=== PATIENT | female | born 1965 | race Two or more races ===

== ENCOUNTER 2024-12-14 18:12 | Inpatient (IN) | payer MEDICARE, MEDICAID ==
[~2024-12-14] VITALS: Ht 167.6 cm; Wt 116.6 kg
[2024-12-14] MEDS: GLUCAGON EMERG KIT 1mg/1ml ONE ×3 (18:32→19:16)
[2024-12-14] MEDS: CALCIUM GLUC 1,000mg/50ml-NS 50 ML IV ONE ×3 (18:35→21:13)
--- NOTE | 2024-12-14 18:51 | ED.PDOC ---
HPI Comments 59 year old female came to ER via EMS for chest pains. Patient is morbidly obese and wheelchair bound. Per EMS, initial call of chest pains and possible overdose. Started complaining of chest pains radiating to her left arm a few hours ago, associated with shortness of breath. Patient does have history of hypertension, diabetes, CVA, CHF and AZ on 6-8 L NC. Does take metoprolol. On scene, blood pressure was 140/73 mmHg however her heart rate was 30's. At this time of care, patient appears confused, screaming and unable to give any more information. Family states that patient normally is alert and oriented x3, no confusion. Chief Complaint: Chest Pain Time Seen by MD: 18:50 Reviewed Notes: Goodwill Representative Notes Allergies: Coded Allergies: NO KNOWN ALLERGIES (Unverified , 12/14/24) Home Meds Reported Medications Rivaroxaban (Xarelto Tablet) 20 Mg Tb, 1 TAB PO DAILY 12/15/24 Losartan Potassium (Losartan Potassium) 50 Mg Tab, 1 TAB PO BID 12/15/24 Nitrofurantoin Monohyd Macro (Nitrofurantoin Monohydrat) 100 Mg Cap, 1 CAP PO BID 12/15/24 Baclofen (Baclofen) 10 Mg Tab, 1 TAB PO BID 12/15/24 Pregabalin (Pregabalin) 75 Mg Cap, 1 CAP PO TID 12/15/24 Lubiprostone (Lubiprostone) 24 Mcg Cap, 1 CAP PO DAILY 12/15/24 Fluticasone Propionate (Nasal) (Fluticasone Propionate) 50 Mcg/Act Spr, 1 SPRAY DANIELE DAILY 12/15/24 Furosemide (Furosemide) 80 Mg Tab, 1 TAB PO BID 12/15/24 Empagliflozin (Jardiance) 25 Mg Tab, 1 TAB PO DAILY 12/15/24 Glipizide (Glipizide) 5 Mg Tab, 1 TAB PO BID 12/15/24 Semaglutide (Ozempic) 4 Mg/3 Ml Inj 12/15/24 Insulin Syringe/Needle U-100 (Bd Insulin Syringe/U-100/) 0.5 Mg/30 G Mis 12/15/24 Trazodone Hcl (Trazodone Hcl) 100 Mg Tab, 2 TAB PO QHSP PRN for ANXIETY 12/15/24 Buspirone Hcl (Buspirone Hcl) 15 Mg Tab, TAB PO 12/15/24 Alprazolam (Alprazolam) 0.5 Mg Tab, 1 TAB PO QID PRN for ANXIETY 12/15/24 Metoprolol Succinate (Metoprolol Succinate Er) 100 Mg Tab, 1 TAB PO DAILY 12/15/24 Hydroxyzine Hcl (Hydroxyzine Hcl) 25 Mg Tab, 1 TAB PO BID 12/15/24 Pantoprazole Sodium Sesquihydr (Pantoprazole Sodium) 40 Mg Tab, 1 TAB PO DAILY 12/15/24 Amiodarone HCl (Amiodarone HCl) 200 Mg Tab, 1 TAB PO BID 12/15/24 Furosemide (Furosemide) 40 Mg Tab, 1 TAB PO DAILY 12/15/24 Losartan Potassium (Losartan Potassium) 100 Mg Tab, 1 TAB PO DAILY 12/15/24 Doxycycline Monohydrate (Doxycycline Monohydrate) 100 Mg Cap, 1 CAP PO BID 12/15/24 Famotidine (Famotidine) 20 Mg Tab, 1 TAB PO DAILY 12/15/24 Lidocaine (Lidocaine Pain Relief Pat) 4 % Pad, 1 PATCH TOP DAILY 12/15/24 Ondansetron HCl (Ondansetron Hydrochloride) 4 Mg Tab, 2 PO BID 12/15/24 Aspirin (Aspirin Low Dose) 81 Mg Tab, 1 TAB PO DAILY 12/15/24 Simvastatin (Simvastatin) 40 Mg Tab, 1 TAB PO 12/15/24 Insulin Aspart (Insulin Aspart) 100 Unit/Ml Inj 12/15/24 Information Source: Patient, Emergency Med Personnel Mode of Arrival: EMS Severity: Moderate Timing: Hours Duration: Since onset Prehospital treatment: Oxygen Location: Substernal Radiation: Arm (L) Quality: Heavy Onset: With Light Exertion Cardiac Risk Factors: HTN Associated Signs and Symptoms: SOB Review of Systems Review of Systems: Unable to obtain due to altered mental status. Patient is complaining of bilateral lower extremity pain, numbness, back pain and discomfort. Vital Signs Vital Signs Date Time Temp Pulse Resp B/P (MAP) Pulse Ox O2 Delivery O2 Flow Rate FiO2 12/15/24 06:30 62 24 148/49 (82) 100 12/15/24 05:24 90 12/15/24 02:00 98.2 98.2 12/14/24 21:34 60.0 12/14/24 21:00 Non-Rebreather Physical Exam Initial Physical Exam General: Awake, alert, agitated, restless and confused Skin: Skin in warm, rash over lower abdomen. Appropriate color for ethnicity. HEENT: The head is normocephalic and atraumatic. Conjunctivae are clear without exudates or hemorrhage. Sclera is non-icteric. EOM are intact. No signs of nystagmus. Eyelids are normal in appearance without swelling or lesions. Oral mucosa is pink and moist. PERRLA Neck: The neck is supple with normal range of motion. No JVD. Cardiac: Bradycardic rate with normal rhythm. No murmurs, gallops, or rubs are auscultated. Respiratory: Patient is tachypneic. No signs of respiratory distress. Lung sounds are clear in all lobes bilaterally without rales, rhonchi, or wheezes. Abdominal: Abdomen is soft, distended with overlying skin changes on lower abdomen. Extremities: Upper and lower extremities are atraumatic in appearance without deformity. He was bilateral nonpitting lower extremity edema. Neurological: Awake, alert, agitated, restless and confused. Patient is moving all extremities spontaneously. She was able to follow some commands intermittently. She was able to pull herself up and sit up in the exam bed. Psychiatric: Patient appears anxious Past Medical History PAST MEDICAL HISTORY: CHF, CVA, DM, HTN, AZ Past Medical History (Other): Morbidly obese Surgical History: Denies all surgeries CAE ENGINEER History: Denies all CAE ENGINEER Hx Family History Family History: Reviewed,noncontributory to illness Social History Smoker: Non-Smoker Alcohol: Denies ETOH Use Drugs: Denies Drug Use Lives In: Home EKG EKG : Pulse Rate (adult): 29 Cardiac Rhythm: SB Comments Prolonged TX interval, non specific intraventricular conduction delay Was a procedure done? 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 Indication: CVP monitoring, Volume resuscitation, Inability to obtain IV, Suspected infection Room prepared for procedure: Yes Production Troubleshooter performed hand hygien: Yes Maximal sterile barrier precau: Mask/Eye shield, Sterile gown, Cap, Sterlie gloves, Large sterlie drape Skin Preparation: Providine iodine Skin preparation completely dr: Yes Insertion site: Left, Internal jugular Central line catheter type: Tunneled- not dialysis Number of lumens: 3 Central line exchanged over a: Yes Antiseptic ointment applied to: Yes Post Assessment: Chest X-Ray Informed consent obtained: Yes Risks/benefits/alt described: Yes Intubation Indication: Respiratory Insufficiency, Airway Protection Prep: Preoxygenation Pretreated with: Sedation Medicated with: Other (Rocuronium, etomidate) Intubation Approach: Orotracheal Intubation size: cm (8.0) Informed consent obtained: Yes Risks/benefits/alt described: Yes CP Differential Dx Differential Diagnosis: Angina, Anxiety / Panic Attack, AV Block 1st Degree, AV Block 2nd Degree, AV Block 3rd Degree, Heart Failure, Hypoxia, AZ, Renal Failure, Other (Beta-latrice overdose, benzodiazepine overdose,) Differential Diagnosis: CHF, Other (Increased intracranial pressure, CVA, intentional drug overdose, sepsis, other) Differential Diagnosis: Angina, Chest Wall Pain, Costochondritis X-Ray, Labs, Meds, VS Vital Signs Date Time Temp Pulse Resp B/P (MAP) Pulse Ox O2 Delivery O2 Flow Rate FiO2 12/15/24 06:30 62 24 148/49 (82) 100 12/15/24 06:15 56 18 145/47 (79) 100 12/15/24 06:00 59 16 150/48 (82) 100 12/15/24 06:00 145/47 12/15/24 06:00 145/47 12/15/24 06:00 145/47 12/15/24 06:00 145/47 12/15/24 06:00 145/47 12/15/24 05:45 62 24 163/56 (91) 100 12/15/24 05:30 161/58 12/15/24 05:30 161/58 12/15/24 05:30 59 24 164/67 (99) 100 12/15/24 05:24 60 24 161/58 (92) 100 90 12/15/24 05:15 65 24 164/67 (99) 100 12/15/24 05:15 164/67 12/15/24 05:00 66 16 154/46 (82) 100 12/15/24 05:00 154/46 12/15/24 05:00 154/46 12/15/24 05:00 154/46 12/15/24 04:45 69 24 154/57 (89) 100 12/15/24 04:30 67 18 147/53 (84) 100 12/15/24 04:30 147/53 12/15/24 04:15 66 23 145/51 (82) 99 12/15/24 04:15 145/51 12/15/24 04:00 64 24 152/44 (80) 99 12/15/24 04:00 152/44 12/15/24 04:00 152/44 12/15/24 04:00 152/80 12/15/24 03:45 65 24 155/49 (84) 99 12/15/24 03:31 62 24 149/47 (81) 98 100 12/15/24 03:30 65 24 132/50 (77) 98 12/15/24 03:15 63 22 159/51 (87) 98 12/15/24 03:00 61 22 135/42 (73) 100 12/15/24 03:00 135/42 12/15/24 03:00 135/42 12/15/24 03:00 135/42 12/15/24 02:45 140/56 12/15/24 02:45 62 22 140/56 (84) 98 12/15/24 02:30 58 22 142/52 (82) 100 12/15/24 02:15 61 22 148/54 (85) 100 12/15/24 02:00 98.2 62 22 157/60 96 100 98.2 12/15/24 02:00 149/56 12/15/24 02:00 149/56 12/15/24 02:00 149/87 12/15/24 02:00 60 22 149/56 (87) 98 12/15/24 01:48 157/60 12/15/24 01:45 60 19 157/60 (92) 97 12/15/24 01:30 135/90 12/15/24 01:30 61 13 145/63 (90) 100 12/15/24 01:25 55 22 135/84 (101) 100 100 12/15/24 01:21 138/54 12/15/24 01:15 58 15 133/67 (89) 100 12/15/24 01:00 144/48 12/15/24 01:00 144/80 12/15/24 01:00 57 19 144/48 (80) 100 12/15/24 00:49 136/45 12/15/24 00:45 54 14 141/44 (76) 100 12/15/24 00:31 147/43 12/15/24 00:30 53 11 148/45 (79) 100 12/15/24 00:15 54 16 147/50 (82) 100 12/15/24 00:00 125/59 12/15/24 00:00 54 12/15/24 00:00 53 14 125/59 (81) 96 12/14/24 23:45 55 17 104/52 (69) 98 12/14/24 23:30 55 16 71/53 (59) 100 12/14/24 23:15 90 15 164/139 (147) 94 12/14/24 23:00 52 15 64/43 (50) 97 12/14/24 23:00 108/48 12/14/24 22:45 51 15 108/48 (68) 94 12/14/24 22:30 43 15 116/23 (54) 92 12/14/24 22:15 45 11 107/44 (65) 100 12/14/24 22:00 47 17 125/52 (76) 99 12/14/24 22:00 125/52 12/14/24 21:45 49 11 121/43 (69) 97 12/14/24 21:34 42 28 60.0 100 12/14/24 21:30 50 14 112/42 (65) 98 12/14/24 21:23 100/43 12/14/24 21:18 76/46 12/14/24 21:15 48 15 88 12/14/24 21:11 47 12/14/24 21:00 33 11 88 12/14/24 21:00 33 11 88 Non-Rebreather 10 N/A 12/14/24 20:45 41 15 87 12/14/24 20:30 76/46 12/14/24 20:30 46 12 100/41 (60) 97 12/14/24 20:15 44 14 79/37 (51) 90 12/14/24 20:00 47 22 89/18 (41) 89 12/14/24 19:54 106/67 12/14/24 19:45 95 Non-Rebreather 15 N/A 12/14/24 19:45 50 22 106/49 (68) 87 12/14/24 19:45 22 95 Non-Rebreather 15 N/A 12/14/24 19:34 98/45 12/14/24 19:30 98.2 30 36 89/43 (58) 89 98.2 12/14/24 18:51 29 12/14/24 18:26 29 12/14/24 18:21 97.7 33 22 148/73 (98) 94 97.7 Lab Test 12/15/24 05:00 12/15/24 03:20 12/15/24 00:52 12/14/24 23:23 Range/Units Blood Gas Specimen Type Arterial Arterial Arterial Blood Gas Sample Site Right radial Right radial Right radial Blood Gas Patient Temperature 37.0 37.0 37.0 Arterial Blood Date Drawn [id number] Arterial Blood pH 7.296 L 7.258 L 7.236 *L 7.350-7.450 Arterial Blood Partial Pressure CO2 48.1 H 53.8 H 57.0 H 32.0-45.0 mmHg Arterial Blood Partial Pressure O2 76.2 L 77.9 L 106.7 83.0-108.0 mmHg Arterial Blood HCO3 22.9 23.5 23.7 21.0-28.0 mmol/L Arterial Blood Oxygen Saturation 94.4 94.3 97.7 94.0-98.0 % Arterial Blood Base Excess -3.7 L -4.0 L -4.3 L -2.0-3.0 mmol/L Arterial Blood Oxyhemoglobin 93.4 L 93.1 L 96.4 94.0-98.0 % Arterial Blood Carboxyhemoglobin 0.7 0.8 0.9 0.5-1.5 % Arterial Blood Methemoglobin 0.4 0.5 0.4 0.0-1.5 % Alverto Test Modified Modified Modified Blood Gas Total Hemoglobin 11.60 L 11.80 L 11.60 L 12.0-16.0 g/dL Blood Gas Set Respiration Rate 24.0 22.0 Blood Gas Modality Vent - ac Vent - ac High flow FiO2 % 100.0 100.0 100.0 Blood Gas Tidal Volume 500.0 450.0 Blood Gas PEEP or CPAP 5.0 5.0 Blood Gas Liter Flow 60.00 Blood Gas Critical Value Read Back Yes Blood Gas Notified Whom kisha Jacobson md Blood Gas Notified Time [id number] Blood Gas Notified By gonzalez Maurer rrt Prothrombin Time 12.8 H 9.3-11.8 sec Prothrombin Time INR 1.23 H 0.9-1.15 Sodium Level 137 136-145 mmol/L Potassium Level 6.1 *H 3.5-5.1 mmol/L Chloride Level 103 98-107 mmol/L Carbon Dioxide Level 25 20-31 mmol/L Anion Gap 9 5-15 Blood Urea Nitrogen 77 H 9-23 mg/dL Creatinine 3.16 H 0.550-1.02 mg/dL Glomerular Filtration Rate Calc 16 >90 mL/min BUN/Creatinine Ratio 24.4 H 10.0-20.0 Serum Glucose 328 H 74-106 mg/dL Calcium Level 9.6 8.7-10.4 mg/dL Troponin I High Sensitivity 12 </=34 ng/L Test 12/14/24 23:16 12/14/24 21:21 12/14/24 21:12 12/14/24 21:04 Range/Units Urine Color Light-orange Yellow Urine Clarity Turbid H Clear Urine pH 7.0 5.0-9.0 Urine Specific [place] 1.014 1.001-1.035 Urine Protein 1+ H Negative Urine Ketones Negative Negative Urine Blood 1+ H Negative /uL Urine Nitrite Negative Negative Urine Bilirubin Negative Negative Urine Urobilinogen Normal Negative mg/dL Urine Leukocyte Esterase 3+ Negative /uL Urine RBC 19 0 - 4 /hpf Urine WBC Clumps Present None Seen /hpf Urine Microscopic WBC 152 H 0-5 /HPF Urine Squamous Epithelial Cells Few <5 /hpf Urine Calcium Oxalate Crystals Few None Seen Urine Bacteria Many H None Seen /hpf Urine Hyaline Casts Many 0 - 2 /lpf Urine Mucus Few None Seen Urine Glucose Normal Normal mg/dL Blood Gas Specimen Type Arterial Arterial Blood Gas Sample Site Right radial Right radial Blood Gas Patient Temperature 37.0 37.0 Arterial Blood Date Drawn [id number] Arterial Blood pH 7.226 *L 7.252 L 7.350-7.450 Arterial Blood Partial Pressure CO2 52.3 H 52.3 H 32.0-45.0 mmHg Arterial Blood Partial Pressure O2 79.5 L 69.5 L 83.0-108.0 mmHg Arterial Blood HCO3 21.2 22.5 21.0-28.0 mmol/L Arterial Blood Oxygen Saturation 93.9 L 91.4 L 94.0-98.0 % Arterial Blood Base Excess -6.5 L -4.9 L -2.0-3.0 mmol/L Arterial Blood Oxyhemoglobin 92.8 L 90.3 L 94.0-98.0 % Arterial Blood Carboxyhemoglobin 0.7 0.8 0.5-1.5 % Arterial Blood Methemoglobin 0.5 0.4 0.0-1.5 % Alverto Test Modified Modified Blood Gas Total Hemoglobin 11.40 L 11.30 L 12.0-16.0 g/dL Blood Gas Liter Flow 60.00 15.00 Blood Gas Modality High flow Mask - nrb FiO2 % 100.0 100.0 Blood Gas Critical Value Read Back Yes Blood Gas Notified Whom kisha Jacobson md Blood Gas Notified Time [id number] Blood Gas Notified By gonzalez Maurer rrt Urine Opiates Screen Pos NEGATIVE Urine Fentanyl Screen Pos NEGATIVE Urine Barbiturates Screen Neg NEGATIVE Urine Phencyclidine Screen Neg NEGATIVE Urine Amphetamines Screen Neg NEGATIVE Urine Benzodiazepines Screen Pos NEGATIVE Urine Cocaine Screen Neg NEGATIVE Urine Cannabinoids Screen Neg NEGATIVE Lactic Acid Level 0.8 0.4-2.0 mmol/L Troponin I High Sensitivity 12 </=34 ng/L POC Glucose 281 H 70-106 mg/dl Test 12/14/24 19:23 Range/Units White Blood Count 8.8 4.4-10.8 10^3/uL Red Blood Count 4.19 4.0-5.20 10^6/uL Hemoglobin 10.1 L 12.2-16.2 g/dL Hematocrit 34.3 L 36.0-46.0 % Mean Corpuscular Volume 81.8 80.0-100.0 fL Mean Corpuscular Hemoglobin 24.2 L 28.0-32.0 pg Mean Corpuscular Hemoglobin Concent 29.5 L 32.0-36.0 g/dL Red Cell Distribution Width 18.7 H 11.8-14.3 % Platelet Count 401 140-450 10^3/uL Mean Platelet Volume 7.9 6.9-10.8 fL Neutrophils (%) (Auto) 70.5 37.0-80.0 % Lymphocytes (%) (Auto) 14.9 10.0-50.0 % Monocytes (%) (Auto) 7.6 0.0-12.0 % Eosinophils (%) (Auto) 6.4 0.0-7.0 % Basophils (%) (Auto) 0.6 0.0-2.0 % Neutrophils # (Auto) 6.2 1.6-8.6 10 ^3/uL Lymphocytes # (Auto) 1.3 0.4-5.4 10 ^3/uL Monocytes # (Auto) 0.7 0-1.3 10 ^3/uL Eosinophils # (Auto) 0.6 0-0.8 10 ^3/uL Basophils # (Auto) 0.1 0-0.2 10 ^3/uL Nucleated Red Blood Cells 0.1 % Sodium Level 137 136-145 mmol/L Potassium Level 6.3 *H 3.5-5.1 mmol/L Chloride Level 103 98-107 mmol/L Carbon Dioxide Level 24 20-31 mmol/L Anion Gap 10 5-15 Blood Urea Nitrogen 74 H 9-23 mg/dL Creatinine 3.04 H 0.550-1.02 mg/dL Glomerular Filtration Rate Calc 17 >90 mL/min BUN/Creatinine Ratio 24.3 H 10.0-20.0 Serum Glucose 282 H 74-106 mg/dL Lactic Acid Level 2.8 *H 0.4-2.0 mmol/L Calcium Level 9.8 8.7-10.4 mg/dL Magnesium Level 2.1 1.6-2.6 mg/dL Total Bilirubin 0.2 0.2-1.0 mg/dL Aspartate Amino Transferase (AST) 19 13-40 U/L Alanine Aminotransferase (ALT) 24 7-40 U/L Alkaline Phosphatase 83 46-116 U/L Creatine Kinase 84 34-145 U/L Troponin I High Sensitivity 14 </=34 ng/L B-Type Natriuretic Peptide 298.73 0-100 pg/mL Total Protein 6.4 5.7-8.2 g/dL Albumin 4.1 3.2-4.8 g/dL Lipase 39 12-53 U/L Salicylates Level < 3.0 -30 mg/dL Acetaminophen Level < 2.0 L 10.0-20.0 UG/ML Microbiology Date/Time Source Procedure Growth Status 12/14/24 19:23 Blood Blood Culture - Preliminary NO GROWTH AFTER 24 HOURS OF INCUBATION. Resulted 12/14/24 19:23 Blood Blood Culture - Preliminary NO GROWTH AFTER 24 HOURS OF INCUBATION. Resulted Current Medications Medications (Trade) Dose Ordered Sig/Julito Route Start Time Stop Time Status Last Admin Insulin Human Regular (InsuLIN R) 10 units ONCE ONCE IV 12/14/24 21:00 12/14/24 21:01 DC 12/14/24 21:16 Dextrose 50 ml ONCE ONCE IV 12/14/24 21:00 12/14/24 21:01 DC 12/14/24 21:14 Albuterol (Ventolin Medneb) 20 mg ONCE ONCE NEB 12/14/24 21:00 12/14/24 21:01 DC 12/14/24 21:32 Sodium Bicarbonate 50 ml ONCE ONCE IV 12/14/24 21:00 12/14/24 21:01 DC 12/14/24 21:14 Calcium Gluconate/ Sodium Chloride 50 ml @ 120 mls/hr ONCE ONCE IV 12/14/24 21:00 12/14/24 21:24 DC 12/14/24 21:13 Epinephrine HCl 250 ml @ 7.5 mls/hr Q24H ONCE IV 12/14/24 21:00 12/15/24 20:59 12/15/24 00:49 Sodium Chloride 1,000 ml @ 1,000 mls/hr Q1H ONCE IV 12/14/24 21:15 12/14/24 22:14 DC 12/14/24 21:37 Sodium Chloride 1,000 ml @ 130 mls/hr Q7H42M ONCE IV 12/14/24 21:15 12/14/24 23:09 DC 12/14/24 21:39 Fentanyl Citrate 25 mcg ONCE ONCE IV 12/14/24 21:30 12/14/24 21:31 DC 12/14/24 21:23 Atropine Sulfate (Atropine Sulfate) 1 mg ONCE ONCE IV 12/14/24 21:30 12/14/24 21:31 DC 12/14/24 21:30 Vancomycin HCl 200 ml @ 200 mls/hr ONCE ONCE IV 12/14/24 21:30 12/14/24 22:29 DC 12/15/24 01:00 Cefazolin Sodium/ Dextrose 50 ml @ 50 mls/hr ONCE ONCE IV 12/14/24 21:30 12/14/24 22:29 DC 12/14/24 21:46 Naloxone HCl (Narcan) 2 mg ONCE ONCE IV 12/14/24 22:00 12/14/24 22:11 DC 12/14/24 22:14 Glucagon (Glucagen) 5 mg ONCE ONCE IV 12/14/24 22:45 12/14/24 22:51 DC 12/14/24 23:16 Ondansetron HCl (Zofran) 4 mg ONCE ONCE IV 12/14/24 23:30 12/14/24 23:40 DC 12/14/24 23:47 Glucagon (Glucagen) 5 mg ONCE ONCE IV 12/14/24 23:30 12/14/24 23:40 DC 12/14/24 23:58 Sodium Chloride 1,000 ml @ 250 mls/hr Q4H ONCE IV 12/14/24 23:45 12/15/24 03:44 DC 12/14/24 23:37 Sodium Bicarbonate 50 ml ONCE ONCE IV 12/15/24 00:00 12/15/24 00:01 TX 12/15/24 00:08 Dopamine HCl/ Dextrose 250 ml @ 25.5 mls/hr Q9H49M ONCE IV 12/15/24 00:15 12/15/24 10:03 DC 12/15/24 00:31 Rocuronium [place] 50 mg ONCE ONCE IV 12/15/24 01:15 12/15/24 01:16 DC 12/15/24 01:21 Etomidate 30 mg ONCE ONCE IV 12/15/24 01:15 12/15/24 01:16 TX 12/15/24 01:20 Midazolam HCl 50 ml @ 1 mls/hr Q24H IV 12/15/24 01:15 12/15/24 19:53 Rocuronium [place] 50 mg ONCE ONCE IV 12/15/24 01:30 12/15/24 01:31 DC 12/15/24 01:30 Dopamine HCl/ Dextrose 250 ml @ 25.5 mls/hr Q9H49M IV 12/15/24 02:45 12/15/24 13:07 DC 12/15/24 02:45 Propofol 100 ml @ 4.08 mls/hr Q24H IV 12/15/24 05:15 12/15/24 18:39 Dopamine HCl/ Dextrose 250 ml @ 25.5 mls/hr Q9H49M IV 12/15/24 06:00 12/15/24 17:03 EXAM: XY CHEST XRAY 1 VIEW TECHNIQUE: Single frontal chest radiograph CLINICAL HISTORY: hypoxia COMPARISON: None Findings/Impression: Frontal chest radiograph demonstrates no acute osseous or superficial soft tissue abnormalities. The trachea is midline. Cardiomegaly. Low lung volumes with bronchovascular crowding. Bibasilar atelectasis. No pneumothorax, pleural effusions, or consolidations. EXAM: XY R TIB FIB XRAY CLINICAL HISTORY: right lower extremity IO COMPARISON: None TECHNIQUE: XY R TIB FIB XRAY Findings/Impression: Single lateral view the right tibia and fibula. There is no evidence of an acute fracture, dislocation, blastic, or lytic lesions. Catheter overlying the proximal tibia. No superficial soft tissue abnormalities. Images Reviewed?: Images reviewed and evaluated by me Time of 1ST Reevaluation: 18:41 Reevaluation 1ST: Unchanged Patient Education/Counseling: Other (Altered mental status) Family Education/Counseling: Diagnosis, Treatment, Other (Need for admission) Departure 1 Departure Time of Disposition: 21:21 Impression: Primary Impression: Accidental medication overdose Additional Impressions: Hyperkalemia Altered mental status Respiratory acidosis Lactic acidemia Acute renal failure Urinary tract infection Disposition: ADMITTED INPATIENT Condition: Critical Comments 59-year-old female who presented to the emergency department with altered mental status , bradycardia. Family reported that patient may have taken a double dose of one of her medications, unknown which medication. Patient is on Xanax, Torreon, amiodarone, beta-latrice, potassium. Patient arrived very agitated, uncooperative with the exam with low heart rate and low blood pressure. Intubation was considered early on however there was concern that intubating patient without adequate IV access, low heart rate, low blood pressure may worsen patient's hemodynamic status. Patient was not in respiratory distress. Initially fentanyl was administered for pain control as patient was restless and reported being very uncomfortable on exam bed causing difficulty with cooperation with procedures. Patient continued to be restless and agitated. Central line was placed under procedural sedation for adequate IV access and administration of pressors. Patient tolerated procedure well . She continued to be be confused however with adequate respirations and protecting her airway. Beta latrice overdose treatment, Hyperkalemia treatment, dopamine drip, epinephrine drip, IV fluids and antibiotics initiated in the emergency department. Patient admitted for further treatment, evaluation and monitoring. Discussed with poison control pharmacist Gokul. Recommended giving additional 5-10 mg of glucagon IV. Start patient on glucagon drip if heart rate improves. (@2245 Case # [id number]) Patient's mental status declining. Patient more altered. Gasping respirations. Oxygen saturation 100% on HFNC. No respiratory distress. Patient's sister at bedside. Discussed with her pH is not improving, potential for worsening respiratory status, potential difficult intubation. Recommended intubation at this time. Patient sister does not want her intubated at this time. (@00:31) Discussed with patient's sister who consents to intubation for increasing PCO2 and declining mental and respiratory status (@01:13) Additional IV glucagon was administered. No additional glucagon doses available to start drip. Patient's HR improving with decreasing dopamine requirement. pH improving with vent setting adjustments. Patient admitted to hospitalist service for further treatment monitoring and evaluation. Extensive evaluation was performed in attempt to identify or rule out: (See differential diagnosis section) The following tests were ordered, and results were reviewed by me and discussed with patient: (See diagnostic results section) The following test were independently interpreted by me: EKG, CXR I reviewed and agreed with the following test results read by other providers: CXR, Tib Fib Xray I reviewed the following notes from the pt's past medical encounters: N/A Additional information was gathered from interviewing the following independent historians: EMS, patient's family at bedside Discussion of management or test interpretation with external physician/other qualified health care team coordinator scheduler: N/A Addressed an acute or chronic illness that poses a threat to life or bodily function: Hyperkalemia, altered mental status, lactic acidemia, respiratory acidosis, hypotension, acute renal failure, respiratory failure Decision regarding hospitalization or escalation of hospital level of care: Risk and benefits of admission for further treatment of patient's condition was considered. Due to patient's current clinical condition, high risk of decline and poor outcome if discharged and need for further inpatient management and monitoring, patient will be admitted to the hospital. Drug therapy requiring intensive monitoring for toxicity: IV calcium, IV potassium, IV glucagon, IV dopamine, IV epinephrine Parenteral controlled substances: IV ketamine, IV fentanyl, IV propofol, IV midazolam Decision regarding elective major surgery with identified patient or procedure risk factors: N/A Decision regarding emergency major surgery: N/A Decision not to resuscitate or to de-escalate care because of poor prognosis: N/A Diagnosis or treatment significantly limited by social determinants of health: N/A Critical Care Note Critical Care Time?: Yes (>90min-critical care time only) Critical care comment: Due to a high probability of clinically significant, life threatening deterioration, the patient required my highest level of preparedness to intervene emergently and I personally spent this critical care time directly and personally managing the patient. This critical care time included obtaining a history; examining the patient; pulse oximetry; ordering and review of studies; arranging urgent treatment with development of a management plan; evaluation of patient's response to treatment; frequent reassessment; and, discussions with other providers. This critical care time was performed to assess and manage the high probability of imminent, life-threatening deterioration that could result in multi-organ failure. It was exclusive of separately billable procedures and treating other patients and teaching time. Please see my other sections and the rest of the note for further information on patient assessment and treatment. Stability Stability form required: No Heart Score Heart Score: Heart Score Response (Comments) Value History N/A 0 EKG N/A 0 Age N/A 0 Risk Factors N/A 0 Troponin N/A 0 Total 0 I personally scribed for DINO JACOBSON MD (DVMINCH) on 12/14/24 at 18:51. Electronically submitted by Issa Zhang ([employer]). I personally scribed for DINO JACOBSON MD (DVMINCH) on 12/14/24 at 18:53. Electronically submitted by Issa Zhang ([facility]). I personally scribed for DINO JACOBSON MD (DVMINCH) on 12/14/24 at 18:58. Electronically submitted by Issa Zhang ([facility]). I personally scribed for DINO JACOBSON MD (DVMINCH) on 12/14/24 at 20:52. Electronically submitted by Issa Zhang ([facility]). I personally scribed for DINO JACOBSON MD (DVMINCH) on 12/14/24 at 20:57. Electronically submitted by Issa Zhang ([facility]). I personally scribed for DINO JACOBSON MD (DVMINCH) on 12/15/24 at 01:36. Electronically submitted by Issa Zhang ([facility]). DION JACOBSON MD Dec 14, 2024 18:51
[2024-12-14] MEDS: STERILE WATER 10 ML ONE (19:16)
[2024-12-14] MEDS: ATROPINE SULF 1 MG/10ml SYR IV ONE ×3 (19:18→21:30)
[2024-12-14] MEDS: GLUCAGON EMERG KIT 1mg/1ml IV ONE ×3 (19:19→23:58)
[2024-12-14] MEDS: GLUCAGON EMERG KIT 1mg/1ml IM ONE (19:19)
[2024-12-14] MEDS: ONDANSETRON HCL 4 MG/2 ML VIAL ONE (19:21)
[2024-12-14] MEDS: ONDANSETRON HCL 4 MG/2 ML VIAL IV ONE ×3 (19:22→23:47)
[2024-12-14] MEDS: DOBUTamine 1000MCG/ML 250 ML IV SCH (19:34)
[2024-12-14 19:45] LABS: Basophils # (auto) 0.1 10 ^3/uL (0-0.2); Hematocrit 34.3 % (36.0-46.0); Hemoglobin 10.1 g/dL (12.2-16.2); Mean Corpuscular Hgb Conc. 29.5 g/dL (32.0-36.0); Monocytes # (auto) 0.7 10 ^3/uL (0-1.3); Neutrophils # (auto) 6.2 10 ^3/uL (1.6-8.6); Nucleated Red Blood Cells % 0.1 %; White Blood Cell 8.8 10^3/uL (4.4-10.8)
[2024-12-14] MEDS: ALBUTEROL SULF 2.5 MG/0.5ML(0.5%) NEB SOLN NEB ONE ×2 (19:45→21:32)
[2024-12-14] MEDS: ALBUTEROL SULF 2.5 MG/0.5ML(0.5%) NEB SOLN ONE (19:46)
[2024-12-14 19:47] LABS: Basophils % (auto) 0.6 % (0.0-2.0); Eosinophils # (auto) 0.6 10 ^3/uL (0-0.8); Eosinophils % (auto) 6.4 % (0.0-7.0); Lymphocytes # (auto) 1.3 10 ^3/uL (0.4-5.4); Lymphocytes % (auto) 14.9 % (10.0-50.0); Mean Corpuscular Hemoglobin 24.2 pg (28.0-32.0); Mean Corpuscular Volume 81.8 fL (80.0-100.0); Monocytes % (auto) 7.6 % (0.0-12.0); Neutrophils % (auto) 70.5 % (37.0-80.0); Platelet Count (auto) 401 10^3/uL (140-450); Red Blood Cells 4.19 10^6/uL (4.0-5.20); Red Cell Distribution Width 18.7 % (11.8-14.3)
[2024-12-14] MEDS: fentaNYL CITRATE 100 MCG/2 ML VL IV ONE ×3 (19:54→21:23)
[2024-12-14] MEDS: METOCLOPRAMIDE HCL 5MG/ml INJ 2ml VIAL IV ONE (19:55)
[2024-12-14] MEDS: LORazepam 2MG/ML-1ML VIAL IV ONE (19:55)
[2024-12-14 20:12] LABS: Alanine Aminotransferase 24 U/L (7-40); Albumin 4.1 g/dL (3.2-4.8); Alkaline Phosphatase 83 U/L (46-116); Anion Gap 10 (5-15); Aspartate Aminotransferase 19 U/L (13-40); BUN/Creatinine Ratio 24.3 (10.0-20.0); Calcium 9.8 mg/dL (8.7-10.4); Carbon Dioxide 24 mmol/L (20-31); Chloride 103 mmol/L (98-107); Lipase 39 U/L (12-53); Magnesium 2.1 mg/dL (1.6-2.6); Sodium 137 mmol/L (136-145); Total Protein 6.4 g/dL (5.7-8.2)
[2024-12-14] MEDS: fentaNYL CITRATE 100 MCG/2 ML VL ONE (20:14)
[2024-12-14 20:15] LABS: Bilirubin, Total 0.2 mg/dL (0.2-1.0); Blood Urea Nitrogen 74 mg/dL (9-23); Glucose 282 mg/dL (74-106)
[2024-12-14 20:24] LABS: Lactic Acid w/Reflex 2.8 mmol/L (0.4-2.0); Potassium 6.3 mmol/L (3.5-5.1)
[2024-12-14] MEDS: KETAMINE 50mg/ML 10ml Vial 10 ML ONE (20:30)
[2024-12-14] MEDS: KETAMINE 50mg/ML 10ml Vial (500mg/10ml) IV ONE (20:30)
--- NOTE | 2024-12-14 20:34 | DVH ---
EXAM: XY R TIB FIB XRAY CLINICAL HISTORY: right lower extremity IO COMPARISON: None TECHNIQUE: XY R TIB FIB XRAY Findings/Impression: Single lateral view the right tibia and fibula. There is no evidence of an acute fracture, dislocation, blastic, or lytic lesions. Catheter overlying the proximal tibia. No superficial soft tissue abnormalities.
--- NOTE | 2024-12-14 20:35 | DVH ---
EXAM: XY CHEST XRAY 1 VIEW TECHNIQUE: Single frontal chest radiograph CLINICAL HISTORY: hypoxia COMPARISON: None Findings/Impression: Frontal chest radiograph demonstrates no acute osseous or superficial soft tissue abnormalities. The trachea is midline. Cardiomegaly. Low lung volumes with bronchovascular crowding. Bibasilar atelectasis. No pneumothorax, pleural effusions, or consolidations.
[2024-12-14 21:00] VITALS: PULSE 33; RESP 11; O2SAT 88
[2024-12-14 21:14] LABS: Base Excess -4.9 mmol/L (-2.0-3.0)
[2024-12-14] MEDS: DEXTROSE (50%) 50ML SYRG IV ONE (21:14)
[2024-12-14] MEDS: SODIUM BICARB 8.4% 50Meq/50ml SYR INJ IV ONE (21:14)
[2024-12-14] MEDS: InsuLIN REG 1unit/0.01ml Soln (100units/ml) IV ONE (21:16)
[2024-12-14] MEDS: DOPamine 1600MCG/ML D5W 250 ML IV ONE (21:18)
[2024-12-14] MEDS: SODIUM CHLORIDE 0.9% 1,000 ML IV ONE ×3 (21:37→23:37)
[2024-12-14] MEDS: SODIUM CHLORIDE 0.9% 250 ML IV ONE (21:39)
[2024-12-14] MEDS: ceFAZolin 2 GM/D5W50ml 50 ML IV ONE (21:46)
[2024-12-14] MEDS: NALOXONE HCL 1MG/ML 2ML SYRINGE IV ONE (22:14)
--- NOTE | 2024-12-14 22:44 | DVH ---
CHEST RADIOGRAPH Indication: Central line placement Technique: Single frontal view of the chest was obtained Comparison: XY CHEST XRAY 1 VIEW on DOS: 12/14/24 FINDINGS: Lines and Tubes: Central line placement from the left internal jugular vein with the tip in the super ior vena cava above the right atrium Lungs: No focal consolidation. Pleura: No effusion. No pneumothorax. Cardiomediastinal contours: Unremarkable Bones: No acute osseous abnormality. IMPRESSION: 1. Central line from the left internal jugular vein with the tip in the superior vena cava above the right atrium. HS:Y
[2024-12-14 23:08] LABS: Acetaminophen < 2.0 UG/ML (10.0-20.0); Salicylate < 3.0 mg/dL (-30)
--- NOTE | 2024-12-14 23:09 | DVHINCON2 ---
Date of service: Dec 14, 2024 Referring Physician Indira Reason for Consultation Chest pain History of Present Illness This is a 59 year old female with a past medical history of hypertension, diabetes, CVA, CHF and LA who was brought in by EMS due to altered mental status and bradycardia. Patient is morbidly obese and wheelchair bound. Family reported that patient may have taken a double dose of 1 of her medications, unknown which medication. Patient is on Xanax, [place], amiodarone, beta-latrice, potassium. Patient arrived very agitated and uncooperative. Patient continued to be restless and agitated. K 6.3, BUN 74, [employer] 3.04, LA 2.8, GLUC 281. Troponin is negative. BNP 298. Chest x-ray shows cardiomegaly, bibasilar atelectasis. Right tib/fib x-ray showed no acute fractures. EKG shows bradycardia. I am asked to consult on this patient. Allergies: Coded Allergies: NO KNOWN ALLERGIES (Unverified , 12/14/24) Current Medications Current Medications Medications (Trade) Dose Ordered Sig/Julito Route PRN Reason Start Time Stop Time Status Last Admin Dobutamine HCl/ Dextrose 250 ml @ 40.8 mls/hr Q6H8M IV 12/14/24 19:15 12/14/24 19:48 DC 12/14/24 19:34 Review of Systems Unable to review as patient is restless and agitated. Vital Signs Vital Signs Date Time Temp Pulse Resp B/P (MAP) Pulse Ox O2 Delivery O2 Flow Rate FiO2 12/14/24 21:34 42 28 60.0 100 12/14/24 21:23 100/43 12/14/24 19:45 95 Non-Rebreather 12/14/24 19:30 98.2 98.2 Physical Exam GENERAL: Mild distress. Morbidly obese . EYES: PERRL, EOMI. Anicteric. HENT: Moist mucous membranes. LUNGS: Clear to auscultation bilaterally. CARDIOVASCULAR: Regular rate and rhythm. ABDOMEN: Soft, nontender and nondistended. EXTREMITIES: No edema. NEUROLOGIC: Confused. SKIN: Warm, dry. Labs/Diagnostic Data Labs Test 12/14/24 21:21 12/14/24 21:12 12/14/24 21:04 12/14/24 19:23 Range/Units Lactic Acid Level 0.8 0.4-2.0 mmol/L Troponin I High Sensitivity 12 </=34 ng/L POC Glucose 281 H 70-106 mg/dl Blood Gas Specimen Type Arterial Blood Gas Sample Site Right radial Blood Gas Patient Temperature 37.0 Arterial Blood Date Drawn [id number] Arterial Blood pH 7.252 L 7.350-7.450 Arterial Blood Partial Pressure CO2 52.3 H 32.0-45.0 mmHg Arterial Blood Partial Pressure O2 69.5 L 83.0-108.0 mmHg Arterial Blood HCO3 22.5 21.0-28.0 mmol/L Arterial Blood Oxygen Saturation 91.4 L 94.0-98.0 % Arterial Blood Base Excess -4.9 L -2.0-3.0 mmol/L Arterial Blood Oxyhemoglobin 90.3 L 94.0-98.0 % Arterial Blood Carboxyhemoglobin 0.8 0.5-1.5 % Arterial Blood Methemoglobin 0.4 0.0-1.5 % Alverto Test Modified Blood Gas Total Hemoglobin 11.30 L 12.0-16.0 g/dL Blood Gas Liter Flow 15.00 Blood Gas Modality Mask - nrb FiO2 % 100.0 White Blood Count 8.8 4.4-10.8 10^3/uL Red Blood Count 4.19 4.0-5.20 10^6/uL Hemoglobin 10.1 L 12.2-16.2 g/dL Hematocrit 34.3 L 36.0-46.0 % Mean Corpuscular Volume 81.8 80.0-100.0 fL Mean Corpuscular Hemoglobin 24.2 L 28.0-32.0 pg Mean Corpuscular Hemoglobin Concent 29.5 L 32.0-36.0 g/dL Red Cell Distribution Width 18.7 H 11.8-14.3 % Platelet Count 401 140-450 10^3/uL Mean Platelet Volume 7.9 6.9-10.8 fL Neutrophils (%) (Auto) 70.5 37.0-80.0 % Lymphocytes (%) (Auto) 14.9 10.0-50.0 % Monocytes (%) (Auto) 7.6 0.0-12.0 % Eosinophils (%) (Auto) 6.4 0.0-7.0 % Basophils (%) (Auto) 0.6 0.0-2.0 % Neutrophils # (Auto) 6.2 1.6-8.6 10 ^3/uL Lymphocytes # (Auto) 1.3 0.4-5.4 10 ^3/uL Monocytes # (Auto) 0.7 0-1.3 10 ^3/uL Eosinophils # (Auto) 0.6 0-0.8 10 ^3/uL Basophils # (Auto) 0.1 0-0.2 10 ^3/uL Nucleated Red Blood Cells 0.1 % Sodium Level 137 136-145 mmol/L Potassium Level 6.3 *H 3.5-5.1 mmol/L Chloride Level 103 98-107 mmol/L Carbon Dioxide Level 24 20-31 mmol/L Anion Gap 10 5-15 Blood Urea Nitrogen 74 H 9-23 mg/dL Creatinine 3.04 H 0.550-1.02 mg/dL Glomerular Filtration Rate Calc 17 >90 mL/min BUN/Creatinine Ratio 24.3 H 10.0-20.0 Serum Glucose 282 H 74-106 mg/dL Calcium Level 9.8 8.7-10.4 mg/dL Magnesium Level 2.1 1.6-2.6 mg/dL Total Bilirubin 0.2 0.2-1.0 mg/dL Aspartate Amino Transferase (AST) 19 13-40 U/L Alanine Aminotransferase (ALT) 24 7-40 U/L Alkaline Phosphatase 83 46-116 U/L Creatine Kinase 84 34-145 U/L B-Type Natriuretic Peptide 298.73 0-100 pg/mL Total Protein 6.4 5.7-8.2 g/dL Albumin 4.1 3.2-4.8 g/dL Lipase 39 12-53 U/L Assessment Accidental medication overdose. Hyperkalemia. Altered mental status. Respiratory acidosis. Lactic acidemia. Acute renal failure. Hypertension. Diabetes. History of CVA. Plan/Recommendation I agree with your ongoing assessment and care of plan. Dopamine drip. IVFs. IV antibiotics as ordered. Additional plan as per the hospital course. A total of 45 minutes was spent reviewing the patient record, examining the patient, making a diagnostic and therapeutic plan, discussing this plan with medical personnel, following up on diagnostic studies and following the patient for clinical stability excluding any and all procedures. At least 50% of this time was spent in direct, [id number] contact. Plan discussed with: FRANTZ Leyva MD Dec 14, 2024 22:25
[2024-12-14] MEDS ORDERED: SODIUM CHLORIDE 0.9% 250 ML IV ONE (23:15)
[2024-12-14 23:22] LABS: Base Excess -6.5 mmol/L (-2.0-3.0)
[2024-12-14 23:38] LABS: Urine Bacteria MANY /hpf (None Seen); Urine Blood 1+ /uL (Negative); Urine Clarity Turbid (Clear); Urine Color Light-Orange (Yellow); Urine Hyaline Cast MANY /lpf (0 - 2); Urine Mucus FEW (None Seen); Urine Protein, UAD 1+ (Negative); Urine Specific Gravity 1.014 (1.001-1.035); Urine Squamous Epithelial Cell FEW /hpf (<5); Urine Urobilinogen Normal (Negative); Urine WBC 152 /HPF (0-5); Urine WBC Clumps PRESENT /hpf (None Seen)
[2024-12-14 23:53] LABS: Chloride 103 mmol/L (98-107); Sodium 137 mmol/L (136-145)
[2024-12-14 23:54] LABS: Anion Gap 9 (5-15); Carbon Dioxide 25 mmol/L (20-31)
[2024-12-14 23:55] LABS: Calcium 9.6 mg/dL (8.7-10.4)
[2024-12-14 23:58] LABS: INR 1.23 (0.9-1.15); Prothrombin Time 12.8 sec (9.3-11.8)
[2024-12-14 23:59] LABS: BUN/Creatinine Ratio 24.4 (10.0-20.0)
[2024-12-15] VITALS (81 sets, daily range): BP systolic 85–208; BP diastolic 31–67; PULSE 50–85; RESP 8–25; TEMP 98.2–101.1; O2SAT 90–100
[2024-12-15] MEDS: SODIUM BICARB 8.4% 50Meq/50ml SYR INJ IV ONE (00:08)
[2024-12-15 00:20] LABS: Amphetamine Screen, Urine Neg (NEGATIVE); Barbiturate Scree,Urine Neg (NEGATIVE); Benzodiazephine Screen, Urine Pos (NEGATIVE); Cannabinoid Screen, Urine Neg (NEGATIVE); Cocaine Screen, Urine Neg (NEGATIVE); Opiate Scree,Urine Pos (NEGATIVE); Phencyclidine Screen, Urine Neg (NEGATIVE)
[2024-12-15 00:25] LABS: Blood Urea Nitrogen 77 mg/dL (9-23); Glucose 328 mg/dL (74-106)
[2024-12-15 00:27] LABS: Potassium 6.1 mmol/L (3.5-5.1)
[2024-12-15] MEDS: DOPamine 1600MCG/ML D5W 250 ML IV ONE (00:31)
[2024-12-15] MEDS: EPINEPHrine HCL 250 ML IV ONE (00:49)
[2024-12-15] MEDS: VANCOMYCIN 1GM/200ML PM 200 ML IV ONE (01:00)
[2024-12-15 01:01] LABS: Base Excess -4.3 mmol/L (-2.0-3.0)
[2024-12-15] MEDS: ETOMIDATE (2MG/ML) 20ML VIAL IV ONE (01:20)
[2024-12-15] MEDS: ROCURONIUM 10MG/ML 10ML VIAL IV ONE ×2 (01:21→01:30)
[2024-12-15] MEDS: MIDAZOLAM DRIP 50 mg/50mL 50 ML IV SCH (01:48)
[2024-12-15] MEDS: DOPamine 1600MCG/ML D5W 250 ML IV SCH ×2 (02:45→06:00)
--- NOTE | 2024-12-15 04:03 | DVH ---
CHEST RADIOGRAPH Indication: S/P INTUBATION Technique: Single frontal view of the chest was obtained COMPARISON: XY CHEST XRAY 1 VIEW on DOS: 12/14/24, XY CHEST XRAY 1 VIEW on DOS: 12/14/24 FINDINGS: Lines and Tubes: Endotracheal tube tip projects approximately 5 cm above the level of the consuelo. Ent teetee catheter courses below the level of the diaphragm. Left internal jugular central venous line tip projects within the distal superior vena cava. Lungs: Diffuse patchy bilateral pulmonary airspace disease redemonstrated. Suspected right pleural ef fusion. No pneumothorax. Cardiomediastinal contours: The heart is enlarged. Bones: Unremarkable IMPRESSION: 1. Patchy bilateral pulmonary airspace disease and suspected right pleural effusion. 2. Lines and tubes as above.
[2024-12-15] MEDS: PROPOFOL 100 ML IV ONE (05:02)
[2024-12-15 05:04] LABS: Base Excess -3.7 mmol/L (-2.0-3.0)
[2024-12-15] MEDS: PROPOFOL 100 ML IV SCH (05:15)
[2024-12-15] MEDS ORDERED: DEXTROSE (50%) 50ML SYRG IV PRN (07:00)
[2024-12-15] MEDS ORDERED: MORPHINE SULFATE INJ 2 MG/ml SYRG IV PRN (07:00)
[2024-12-15] MEDS ORDERED: ONDANSETRON HCL 4 MG/2 ML VIAL IV PRN (07:00)
[2024-12-15] MEDS ORDERED: NITROGLYCERIN 0.4 MG SL TAB SL PRN (07:00)
[2024-12-15] MEDS: SODIUM BICARB 50mEq/50ml Vial 50 ML in SOD CHL 0.45% 1,000 ML IV ONE (07:00)
--- NOTE | 2024-12-15 07:13 | DVHHP2 ---
History of Present Illness Reason for Visit: chest pain History of Present Illness This 59-year-old female presents in the ED with a chief complaint of chest pains. Upon assessment, the patient is currently intubated, according to nursing staff and medical record, the patient is morbidly obese and wheelchair bound. Per EMS, initial call of chest pains and possible overdose. Started complaining of chest pains radiating to her left arm a few hours ago, associated with shortness of breath. Patient does have history of hypertension, diabetes, CVA, CHF and GA on 6-8 L NC. Does take metoprolol. On scene, blood pressure was 140/73 mmHg however her heart rate was 30's. At this time of care, patient appears confused, screaming and unable to give any more information. Family states that patient normally is alert and oriented x3, no confusion. Past Medical History As stated in HPI Past Surgical History Unknown Family History Unknown Past Social History Unknown Review of Systems Review of Systems ROS see HPI Allergies: Coded Allergies: NO KNOWN ALLERGIES (Unverified , 12/14/24) Medications Current Medications Medications Dose Ordered Sig/Julito Route Start Time Stop Time Status Last Admin Dose Admin Midazolam HCl 50 ml @ 1 mls/hr Q24H IV 12/15/24 01:15 12/15/24 01:48 6 MLS/HR Dopamine HCl/ Dextrose 250 ml @ 25.5 mls/hr Q9H49M IV 12/15/24 02:45 12/15/24 02:45 102 MLS/HR Propofol 100 ml @ 4.08 mls/hr Q24H IV 12/15/24 05:15 12/15/24 05:15 4.08 MLS/HR Dopamine HCl/ Dextrose 250 ml @ 25.5 mls/hr Q9H49M IV 12/15/24 06:00 12/15/24 06:00 51 MLS/HR Exam Vital Signs Vital Signs Date Time Temp Pulse Resp B/P (MAP) Pulse Ox O2 Delivery O2 Flow Rate FiO2 12/15/24 06:30 62 24 148/49 (82) 100 12/15/24 05:24 90 12/15/24 02:00 98.2 98.2 12/14/24 21:34 60.0 12/14/24 19:45 Non-Rebreather General Appearance: Other (Sedated) HEENT: Atraumatic, Mucous membr. moist/pink Respiratory: Clear to auscultation, Normal air movement, Other (Intubated) Cardiovascular: Regular rate, Normal S1, Normal S2 Abdominal: Normal bowel sounds, Soft, No tenderness Extremities: No clubbing, No cyanosis, No edema Skin: No rashes, No breakdown, No significant lesion Neuro: Other (Sedated) Labs/Xrays Labs Test 12/15/24 05:00 12/15/24 00:52 12/14/24 23:23 12/14/24 23:16 Range/Units Blood Gas Specimen Type Arterial Blood Gas Sample Site Right radial Blood Gas Patient Temperature 37.0 Arterial Blood Date Drawn [id number] Arterial Blood pH 7.296 L 7.350-7.450 Arterial Blood Partial Pressure CO2 48.1 H 32.0-45.0 mmHg Arterial Blood Partial Pressure O2 76.2 L 83.0-108.0 mmHg Arterial Blood HCO3 22.9 21.0-28.0 mmol/L Arterial Blood Oxygen Saturation 94.4 94.0-98.0 % Arterial Blood Base Excess -3.7 L -2.0-3.0 mmol/L Arterial Blood Oxyhemoglobin 93.4 L 94.0-98.0 % Arterial Blood Carboxyhemoglobin 0.7 0.5-1.5 % Arterial Blood Methemoglobin 0.4 0.0-1.5 % Alverto Test Modified Blood Gas Total Hemoglobin 11.60 L 12.0-16.0 g/dL Blood Gas Set Respiration Rate 24.0 Blood Gas Modality Vent - ac FiO2 % 100.0 Blood Gas Tidal Volume 500.0 Blood Gas PEEP or CPAP 5.0 Blood Gas Liter Flow 60.00 Blood Gas Critical Value Read Back Yes Blood Gas Notified Whom kisha Jacobson md Blood Gas Notified Time [id number] Blood Gas Notified By gonzalez Maurer rrt Prothrombin Time 12.8 H 9.3-11.8 sec Prothrombin Time INR 1.23 H 0.9-1.15 Sodium Level 137 136-145 mmol/L Potassium Level 6.1 *H 3.5-5.1 mmol/L Chloride Level 103 98-107 mmol/L Carbon Dioxide Level 25 20-31 mmol/L Anion Gap 9 5-15 Blood Urea Nitrogen 77 H 9-23 mg/dL Creatinine 3.16 H 0.550-1.02 mg/dL Glomerular Filtration Rate Calc 16 >90 mL/min BUN/Creatinine Ratio 24.4 H 10.0-20.0 Serum Glucose 328 H 74-106 mg/dL Calcium Level 9.6 8.7-10.4 mg/dL Troponin I High Sensitivity 12 </=34 ng/L Urine Color Light-orange Yellow Urine Clarity Turbid H Clear Urine pH 7.0 5.0-9.0 Urine Specific [place] 1.014 1.001-1.035 Urine Protein 1+ H Negative Urine Ketones Negative Negative Urine Blood 1+ H Negative /uL Urine Nitrite Negative Negative Urine Bilirubin Negative Negative Urine Urobilinogen Normal Negative mg/dL Urine Leukocyte Esterase 3+ Negative /uL Urine RBC 19 0 - 4 /hpf Urine WBC Clumps Present None Seen /hpf Urine Microscopic WBC 152 H 0-5 /HPF Urine Squamous Epithelial Cells Few <5 /hpf Urine Calcium Oxalate Crystals Few None Seen Urine Bacteria Many H None Seen /hpf Urine Hyaline Casts Many 0 - 2 /lpf Urine Mucus Few None Seen Urine Glucose Normal Normal mg/dL Urine Opiates Screen Pos NEGATIVE Urine Fentanyl Screen Pos NEGATIVE Urine Barbiturates Screen Neg NEGATIVE Urine Phencyclidine Screen Neg NEGATIVE Urine Amphetamines Screen Neg NEGATIVE Urine Benzodiazepines Screen Pos NEGATIVE Urine Cocaine Screen Neg NEGATIVE Urine Cannabinoids Screen Neg NEGATIVE Test 12/14/24 21:21 12/14/24 21:12 12/14/24 19:23 Range/Units Lactic Acid Level 0.8 0.4-2.0 mmol/L POC Glucose 281 H 70-106 mg/dl White Blood Count 8.8 4.4-10.8 10^3/uL Red Blood Count 4.19 4.0-5.20 10^6/uL Hemoglobin 10.1 L 12.2-16.2 g/dL Hematocrit 34.3 L 36.0-46.0 % Mean Corpuscular Volume 81.8 80.0-100.0 fL Mean Corpuscular Hemoglobin 24.2 L 28.0-32.0 pg Mean Corpuscular Hemoglobin Concent 29.5 L 32.0-36.0 g/dL Red Cell Distribution Width 18.7 H 11.8-14.3 % Platelet Count 401 140-450 10^3/uL Mean Platelet Volume 7.9 6.9-10.8 fL Neutrophils (%) (Auto) 70.5 37.0-80.0 % Lymphocytes (%) (Auto) 14.9 10.0-50.0 % Monocytes (%) (Auto) 7.6 0.0-12.0 % Eosinophils (%) (Auto) 6.4 0.0-7.0 % Basophils (%) (Auto) 0.6 0.0-2.0 % Neutrophils # (Auto) 6.2 1.6-8.6 10 ^3/uL Lymphocytes # (Auto) 1.3 0.4-5.4 10 ^3/uL Monocytes # (Auto) 0.7 0-1.3 10 ^3/uL Eosinophils # (Auto) 0.6 0-0.8 10 ^3/uL Basophils # (Auto) 0.1 0-0.2 10 ^3/uL Nucleated Red Blood Cells 0.1 % Magnesium Level 2.1 1.6-2.6 mg/dL Total Bilirubin 0.2 0.2-1.0 mg/dL Aspartate Amino Transferase (AST) 19 13-40 U/L Alanine Aminotransferase (ALT) 24 7-40 U/L Alkaline Phosphatase 83 46-116 U/L Creatine Kinase 84 34-145 U/L B-Type Natriuretic Peptide 298.73 0-100 pg/mL Total Protein 6.4 5.7-8.2 g/dL Albumin 4.1 3.2-4.8 g/dL Lipase 39 12-53 U/L Salicylates Level < 3.0 -30 mg/dL Acetaminophen Level < 2.0 L 10.0-20.0 UG/ML PROCEDURE(s): CXR1 - CHEST XRAY 1 VIEW REASON: S/P INTUBATION, NGT ORDER NUMBER(s): [id number], ACCESSION NUMBER(s): [id number] CHEST RADIOGRAPH Indication: S/P INTUBATION Technique: Single frontal view of the chest was obtained COMPARISON: XY CHEST XRAY 1 VIEW on DOS: 12/14/24, XY CHEST XRAY 1 VIEW on DOS: 12/14/24 FINDINGS: Lines and Tubes: Endotracheal tube tip projects approximately 5 cm above the level of the consuelo. Enteric catheter courses below the level of the diaphragm. Left internal jugular central venous line tip projects within the distal superior vena cava. Lungs: Diffuse patchy bilateral pulmonary airspace disease redemonstrated. Suspected right pleural effusion. No pneumothorax. Cardiomediastinal contours: The heart is enlarged. Bones: Unremarkable IMPRESSION: 1. Patchy bilateral pulmonary airspace disease and suspected right pleural effusion. 2. Lines and tubes as above. Assessment/Plan Assessment/Plan # Acute encephalopathy # possible medication OD Admit to ICU CT head pending # acute respiratory failure # respiratory acidosis # right pleural effusion # leukocytosis Continue with vent setting, titrate FIO2 to keep sat >92% Sodium bicarb Empiric antibiotics Repeat ABG in 6 hours Chest x-ray in a.m. # chest pain # bradycardia # CHF #CAD Echo Cardiology Dopamine drip Monitor # acute renal failure # hyperkalemia Nephrology consult given worsening kidney function Monitor potassium # acute UTI Ceftriaxone Blood in urine culture # DM type 2 ISS Check A1C # hypertension Continue with vasopressors to keep SBP >90mmhg Monitor # morbid obesity Lifestyle modification counseled # hx of CVA DVT prophylaxis Medical plan discussed with RN Plan discussed with: Patient, Other (RN) My Orders Orders - ANGEL LUIS RODRIGUEZ Procedure Category Date Status Time Complete Blood Count LAB 12/15/24 Verified 06:46 Comprehensive LAB 12/15/24 Verified Metabolic Panel 06:46 Thyroid Stimulating LAB 12/15/24 Verified Hormone 06:46 Lipid Panel LAB 12/15/24 Verified 06:46 Hemoglobin A1c LAB 12/15/24 Verified 06:46 *[facility] CONS 12/15/24 Verified -[place] 06:46 Admit ADMIT 12/15/24 Verified 06:46 Code Status CODE 12/15/24 Verified 06:46 Ondansetron Hcl PHA 12/15/24 Verified (Zofran) 07:00 Enoxaparin Sodium PHA 12/15/24 Verified (Lovenox) 10:00 Complete Blood Count LAB 12/16/24 Verified 04:00 Comprehensive LAB 12/16/24 Verified Metabolic Panel 04:00 Condition: Fair TORRES 12/15/24 Verified 06:46 Nitroglycerin PHA 12/15/24 Verified Sublingual (Ntrostat 07:00 Morphine Sulfate PHA 12/15/24 Verified Injection 07:00 Stat Ekg For Chest [facility] 12/15/24 Verified Pain 06:46 Notify Of Changes [facility] 12/15/24 Verified From Base 06:46 Quality Control Microbiologist For [facility] 12/15/24 Verified 24 Hours 06:46 Emergency Dysrhythmia [facility] 12/15/24 Verified Protocol 06:46 Rhythm Strips Once [facility] 12/15/24 Verified Every Shift 06:46 Oxygen By Nasal RT 12/15/24 Verified Cannula 06:46 Echo 2d Mode Cardiac US 12/15/24 Verified DOP 06:46 Sodium Bicarb PHA 12/15/24 Verified 50meq/50ml Vial 07:00 1/2nsw Sodium PHA 12/15/24 Verified Bicarbonate Drip 07:00 Abg W/ Co-Ox RT 12/15/24 Verified 12:00 Glucose Blood PHA 12/15/24 Verified (Accu-Chek Comfort 12:00 Mild Sliding Scale PHA 12/15/24 Verified Npo - Q6hr 12:00 Dextrose 50% Syringe PHA 12/15/24 Verified 07:00 Urine Bacterial ANIYA 12/15/24 Verified Culture 06:46 Ceftriaxone Ivpb PHA 12/15/24 Verified Rocephin 09:00 Date of Service: Dec 15, 2024 Billing Provider: ANGEL LUIS RODRIGUEZ Common Visit Codes: [id number] INP/OBS CARE (HIGH) ANGELL UIS RODRIGUEZ Dec 15, 2024 07:13
[2024-12-15 07:53] LABS: Basophils # (auto) 0.1 10 ^3/uL (0-0.2); Basophils % (auto) 0.5 % (0.0-2.0); Eosinophils # (auto) 0 10 ^3/uL (0-0.8); Eosinophils % (auto) 0.1 % (0.0-7.0); Hemoglobin 10.6 g/dL (12.2-16.2); Lymphocytes # (auto) 0.7 10 ^3/uL (0.4-5.4); Lymphocytes % (auto) 4.1 % (10.0-50.0); Mean Corpuscular Hemoglobin 23.9 pg (28.0-32.0); Mean Corpuscular Hgb Conc. 30.4 g/dL (32.0-36.0); Mean Corpuscular Volume 78.6 fL (80.0-100.0); Monocytes # (auto) 2.1 10 ^3/uL (0-1.3); Monocytes % (auto) 11.8 % (0.0-12.0); Neutrophils # (auto) 14.7 10 ^3/uL (1.6-8.6); Neutrophils % (auto) 83.5 % (37.0-80.0); Nucleated Red Blood Cells % 0.1 %; Platelet Count (auto) 322 10^3/uL (140-450); Red Blood Cells 4.46 10^6/uL (4.0-5.20); Red Cell Distribution Width 18.5 % (11.8-14.3); White Blood Cell 17.6 10^3/uL (4.4-10.8)
[2024-12-15 08:11] LABS: Alanine Aminotransferase 39 U/L (7-40); Albumin 4.3 g/dL (3.2-4.8); Alkaline Phosphatase 84 U/L (46-116); Anion Gap 9 (5-15); Aspartate Aminotransferase 30 U/L (13-40); BUN/Creatinine Ratio 25.9 (10.0-20.0); Bilirubin, Total 0.4 mg/dL (0.2-1.0); Calcium 9.8 mg/dL (8.7-10.4); Carbon Dioxide 23 mmol/L (20-31); Chloride 102 mmol/L (98-107); Cholesterol 129 mg/dL (< 200); LDL Cholesterol 47 mg/dL (< 100); Total Protein 7.1 g/dL (5.7-8.2); Triglycerides 95 mg/dL (< 150)
[2024-12-15 08:14] LABS: Blood Urea Nitrogen 73 mg/dL (9-23); Glucose 320 mg/dL (74-106); HDL Cholesterol 60 mg/dL (40-59); Sodium 134 mmol/L (136-145)
[2024-12-15 08:17] LABS: Potassium 5.8 mmol/L (3.5-5.1)
[2024-12-15] MEDS: SODIUM BICARB 8.4% 50Meq/50ml SYR Vial IV ONE (08:53)
[2024-12-15] MEDS: cefTRIAXone 1GM/50ML D5W 50 ML IV SCH (08:53)
[2024-12-15] MEDS: InsuLIN REG 1unit/0.01ml Soln (100units/ml) IV ONE (09:38)
[2024-12-15] MEDS: DEXTROSE (50%) 50ML SYRG IV ONE (09:38)
[2024-12-15] MEDS: ALBUTEROL SULF 2.5 MG/0.5ML(0.5%) NEB SOLN NEB ONE (09:56)
--- NOTE | 2024-12-15 11:30 | DVHINCON2 ---
Date of service: Dec 15, 2024 Referring Physician Libby Miner, nurse practitioner Reason for Consultation Acute kidney injury History of Present Illness Patient is a 59-year-old morbidly obese female with past medical history significant for hypertension, diabetes, CVA, CHF and OH is protein due to generalized weakness shortness of breath and bradycardia patient intubated in the ER due to respiratory distress. On admission patient found to have elevated BUN creatinine nephrology is consulted for acute kidney injury Past Medical History hypertension, diabetes, CVA, CHF and OH Past Surgical History Unknown Allergies: Coded Allergies: NO KNOWN ALLERGIES (Unverified , 12/14/24) Current Medications Current Medications Medications (Trade) Dose Ordered Sig/Julito Route PRN Reason Start Time Stop Time Status Last Admin Dobutamine HCl/ Dextrose 250 ml @ 40.8 mls/hr Q6H8M IV 12/14/24 19:15 12/14/24 19:48 DC 12/14/24 19:34 Midazolam HCl 50 ml @ 1 mls/hr Q24H IV 12/15/24 01:15 12/15/24 12:04 Dopamine HCl/ Dextrose 250 ml @ 25.5 mls/hr Q9H49M IV 12/15/24 02:45 12/15/24 02:45 Propofol 100 ml @ 4.08 mls/hr Q24H IV 12/15/24 05:15 12/15/24 12:05 Dopamine HCl/ Dextrose 250 ml @ 25.5 mls/hr Q9H49M IV 12/15/24 06:00 12/15/24 06:00 Ondansetron HCl (Zofran) 4 mg Q4HP PRN IV NAUSEA / VOMITING 12/15/24 07:00 Enoxaparin Sodium (Lovenox) 30 mg DAILY SC 12/15/24 10:00 12/15/24 12:22 Nitroglycerin (Ntrostat Sublingual) 0.4 mg Q5MINP PRN SL FOR CHEST PAIN 12/15/24 07:00 Morphine Sulfate 2 mg Q30M PRN IV FOR CHEST PAIN 12/15/24 07:00 Diagnostic Test (Pha) (Accu-Chek Comfort Curve T) 1 strip Q6HR 12/15/24 12:00 12/15/24 12:11 Insulin Human Regular (InsuLIN R) Q6HR SC 12/15/24 12:00 12/15/24 12:23 Dextrose 50 ml UD PRN IV Blood Sugar LESS THAN 60 12/15/24 07:00 Ceftriaxone Sodium 50 ml @ 100 mls/hr DAILY@09 IV 12/15/24 09:00 12/15/24 08:53 Azithromycin 250 ml @ 125 mls/hr DAILY IV 12/15/24 10:00 12/15/24 12:22 Bumetanide 12.5 mg/Miscellaneous 50 ml @ 2 mls/hr Q24H IV 12/15/24 11:30 Furosemide (Lasix Injection) 20 mg DAILY IV 12/16/24 10:00 12/15/24 12:02 DC Review of Systems Can not be obtained H&P Exam Vital Signs/I&O Vital Sign Date Time Temp Pulse Resp B/P (MAP) Pulse Ox O2 Delivery O2 Flow Rate FiO2 12/15/24 12:13 56 24 182/50 (94) 93 75 12/15/24 10:00 Mechanical Ventilator+ 12/15/24 08:00 98.2 98.2 12/14/24 21:34 60.0 Intake and Output 12/14/24 12/15/24 19:00 07:00 Intake Total 2971.24 ml Balance 2971.24 ml Intake IV Total 2971.24 ml Physical Exam Obese patient intubated on ventilator Lungs by lateral crackles Cardiac exam regular rate and rhythm GI obese nontender Gee catheter Extremity 1+ edema Neuro patient is intubated Labs/Diagnostic Data Labs/Diagnostic Data Laboratory Tests Test 12/15/24 12:43 12/15/24 12:09 12/15/24 12:08 12/15/24 07:10 Range/Units Blood Gas Specimen Type Arterial Blood Gas Sample Site Right radial Blood Gas Patient Temperature 37.0 Arterial Blood Date Drawn [id number] Arterial Blood pH 7.305 L 7.350-7.450 Arterial Blood Partial Pressure CO2 47.4 H 32.0-45.0 mmHg Arterial Blood Partial Pressure O2 68.9 L 83.0-108.0 mmHg Arterial Blood HCO3 23.1 21.0-28.0 mmol/L Arterial Blood Oxygen Saturation 91.7 L 94.0-98.0 % Arterial Blood Base Excess -3.3 L -2.0-3.0 mmol/L Arterial Blood Oxyhemoglobin 91.4 L 94.0-98.0 % Arterial Blood Carboxyhemoglobin 0.2 L 0.5-1.5 % Arterial Blood Methemoglobin 0.1 0.0-1.5 % Alverto Test Modified Blood Gas Total Hemoglobin 10.80 L 12.0-16.0 g/dL Blood Gas Set Respiration Rate 24.0 Blood Gas Modality Vent - ac FiO2 % 75.0 Blood Gas Tidal Volume 500.0 Blood Gas PEEP or CPAP 5.0 POC Glucose 302 H 70-106 mg/dl White Blood Count 17.6 #H 4.4-10.8 10^3/uL Red Blood Count 4.46 4.0-5.20 10^6/uL Hemoglobin 10.6 L 12.2-16.2 g/dL Hematocrit 35.0 L 36.0-46.0 % Mean Corpuscular Volume 78.6 L 80.0-100.0 fL Mean Corpuscular Hemoglobin 23.9 L 28.0-32.0 pg Mean Corpuscular Hemoglobin Concent 30.4 L 32.0-36.0 g/dL Red Cell Distribution Width 18.5 H 11.8-14.3 % Platelet Count 322 140-450 10^3/uL Mean Platelet Volume 8.3 6.9-10.8 fL Neutrophils (%) (Auto) 83.5 H 37.0-80.0 % Lymphocytes (%) (Auto) 4.1 L 10.0-50.0 % Monocytes (%) (Auto) 11.8 0.0-12.0 % Eosinophils (%) (Auto) 0.1 0.0-7.0 % Basophils (%) (Auto) 0.5 0.0-2.0 % Neutrophils # (Auto) 14.7 H 1.6-8.6 10 ^3/uL Lymphocytes # (Auto) 0.7 0.4-5.4 10 ^3/uL Monocytes # (Auto) 2.1 H 0-1.3 10 ^3/uL Eosinophils # (Auto) 0 0-0.8 10 ^3/uL Basophils # (Auto) 0.1 0-0.2 10 ^3/uL Nucleated Red Blood Cells 0.1 % Sodium Level 134 L 136-145 mmol/L Potassium Level 5.8 *H 3.5-5.1 mmol/L Chloride Level 102 98-107 mmol/L Carbon Dioxide Level 23 20-31 mmol/L Anion Gap 9 5-15 Blood Urea Nitrogen 73 H 9-23 mg/dL Creatinine 2.82 H 0.550-1.02 mg/dL Glomerular Filtration Rate Calc 18 >90 mL/min BUN/Creatinine Ratio 25.9 H 10.0-20.0 Serum Glucose 320 H 74-106 mg/dL Calcium Level 9.8 8.7-10.4 mg/dL Total Bilirubin 0.4 0.2-1.0 mg/dL Aspartate Amino Transferase (AST) 30 13-40 U/L Alanine Aminotransferase (ALT) 39 7-40 U/L Alkaline Phosphatase 84 46-116 U/L Total Protein 7.1 5.7-8.2 g/dL Albumin 4.3 3.2-4.8 g/dL Triglycerides Level 95 < 150 mg/dL Cholesterol Level 129 < 200 mg/dL LDL Cholesterol 47 < 100 mg/dL HDL Cholesterol 60 H 40-59 mg/dL Thyroid Stimulating Hormone (TSH) 1.50 0.55-4.78 uIU/mL Test 12/15/24 05:00 12/15/24 03:20 12/15/24 00:52 12/14/24 23:23 Range/Units Blood Gas Specimen Type Arterial Arterial Arterial Blood Gas Sample Site Right radial Right radial Right radial Blood Gas Patient Temperature 37.0 37.0 37.0 Arterial Blood Date Drawn [id number] Arterial Blood pH 7.296 L 7.258 L 7.236 *L 7.350-7.450 Arterial Blood Partial Pressure CO2 48.1 H 53.8 H 57.0 H 32.0-45.0 mmHg Arterial Blood Partial Pressure O2 76.2 L 77.9 L 106.7 83.0-108.0 mmHg Arterial Blood HCO3 22.9 23.5 23.7 21.0-28.0 mmol/L Arterial Blood Oxygen Saturation 94.4 94.3 97.7 94.0-98.0 % Arterial Blood Base Excess -3.7 L -4.0 L -4.3 L -2.0-3.0 mmol/L Arterial Blood Oxyhemoglobin 93.4 L 93.1 L 96.4 94.0-98.0 % Arterial Blood Carboxyhemoglobin 0.7 0.8 0.9 0.5-1.5 % Arterial Blood Methemoglobin 0.4 0.5 0.4 0.0-1.5 % Alverto Test Modified Modified Modified Blood Gas Total Hemoglobin 11.60 L 11.80 L 11.60 L 12.0-16.0 g/dL Blood Gas Set Respiration Rate 24.0 22.0 Blood Gas Modality Vent - ac Vent - ac High flow FiO2 % 100.0 100.0 100.0 Blood Gas Tidal Volume 500.0 450.0 Blood Gas PEEP or CPAP 5.0 5.0 Blood Gas Liter Flow 60.00 Blood Gas Critical Value Read Back Yes Blood Gas Notified Whom kisha Jacobson md Blood Gas Notified Time [id number] Blood Gas Notified By gonzalez Maurer rrt Prothrombin Time 12.8 H 9.3-11.8 sec Prothrombin Time INR 1.23 H 0.9-1.15 Sodium Level 137 136-145 mmol/L Potassium Level 6.1 *H 3.5-5.1 mmol/L Chloride Level 103 98-107 mmol/L Carbon Dioxide Level 25 20-31 mmol/L Anion Gap 9 5-15 Blood Urea Nitrogen 77 H 9-23 mg/dL Creatinine 3.16 H 0.550-1.02 mg/dL Glomerular Filtration Rate Calc 16 >90 mL/min BUN/Creatinine Ratio 24.4 H 10.0-20.0 Serum Glucose 328 H 74-106 mg/dL Calcium Level 9.6 8.7-10.4 mg/dL Troponin I High Sensitivity 12 </=34 ng/L Test 12/14/24 23:16 12/14/24 21:21 12/14/24 21:12 12/14/24 21:04 Range/Units Urine Color Light-orange Yellow Urine Clarity Turbid H Clear Urine pH 7.0 5.0-9.0 Urine Specific [place] 1.014 1.001-1.035 Urine Protein 1+ H Negative Urine Ketones Negative Negative Urine Blood 1+ H Negative /uL Urine Nitrite Negative Negative Urine Bilirubin Negative Negative Urine Urobilinogen Normal Negative mg/dL Urine Leukocyte Esterase 3+ Negative /uL Urine RBC 19 0 - 4 /hpf Urine WBC Clumps Present None Seen /hpf Urine Microscopic WBC 152 H 0-5 /HPF Urine Squamous Epithelial Cells Few <5 /hpf Urine Calcium Oxalate Crystals Few None Seen Urine Bacteria Many H None Seen /hpf Urine Hyaline Casts Many 0 - 2 /lpf Urine Mucus Few None Seen Urine Glucose Normal Normal mg/dL Blood Gas Specimen Type Arterial Arterial Blood Gas Sample Site Right radial Right radial Blood Gas Patient Temperature 37.0 37.0 Arterial Blood Date Drawn [id number] Arterial Blood pH 7.226 *L 7.252 L 7.350-7.450 Arterial Blood Partial Pressure CO2 52.3 H 52.3 H 32.0-45.0 mmHg Arterial Blood Partial Pressure O2 79.5 L 69.5 L 83.0-108.0 mmHg Arterial Blood HCO3 21.2 22.5 21.0-28.0 mmol/L Arterial Blood Oxygen Saturation 93.9 L 91.4 L 94.0-98.0 % Arterial Blood Base Excess -6.5 L -4.9 L -2.0-3.0 mmol/L Arterial Blood Oxyhemoglobin 92.8 L 90.3 L 94.0-98.0 % Arterial Blood Carboxyhemoglobin 0.7 0.8 0.5-1.5 % Arterial Blood Methemoglobin 0.5 0.4 0.0-1.5 % Alverto Test Modified Modified Blood Gas Total Hemoglobin 11.40 L 11.30 L 12.0-16.0 g/dL Blood Gas Liter Flow 60.00 15.00 Blood Gas Modality High flow Mask - nrb FiO2 % 100.0 100.0 Blood Gas Critical Value Read Back Yes Blood Gas Notified Whom kisha Jacobson md Blood Gas Notified Time [id number] Blood Gas Notified By gonzalez Maurer rrt Urine Opiates Screen Pos NEGATIVE Urine Fentanyl Screen Pos NEGATIVE Urine Barbiturates Screen Neg NEGATIVE Urine Phencyclidine Screen Neg NEGATIVE Urine Amphetamines Screen Neg NEGATIVE Urine Benzodiazepines Screen Pos NEGATIVE Urine Cocaine Screen Neg NEGATIVE Urine Cannabinoids Screen Neg NEGATIVE Lactic Acid Level 0.8 0.4-2.0 mmol/L Troponin I High Sensitivity 12 </=34 ng/L POC Glucose 281 H 70-106 mg/dl Test 12/14/24 19:23 Range/Units White Blood Count 8.8 4.4-10.8 10^3/uL Red Blood Count 4.19 4.0-5.20 10^6/uL Hemoglobin 10.1 L 12.2-16.2 g/dL Hematocrit 34.3 L 36.0-46.0 % Mean Corpuscular Volume 81.8 80.0-100.0 fL Mean Corpuscular Hemoglobin 24.2 L 28.0-32.0 pg Mean Corpuscular Hemoglobin Concent 29.5 L 32.0-36.0 g/dL Red Cell Distribution Width 18.7 H 11.8-14.3 % Platelet Count 401 140-450 10^3/uL Mean Platelet Volume 7.9 6.9-10.8 fL Neutrophils (%) (Auto) 70.5 37.0-80.0 % Lymphocytes (%) (Auto) 14.9 10.0-50.0 % Monocytes (%) (Auto) 7.6 0.0-12.0 % Eosinophils (%) (Auto) 6.4 0.0-7.0 % Basophils (%) (Auto) 0.6 0.0-2.0 % Neutrophils # (Auto) 6.2 1.6-8.6 10 ^3/uL Lymphocytes # (Auto) 1.3 0.4-5.4 10 ^3/uL Monocytes # (Auto) 0.7 0-1.3 10 ^3/uL Eosinophils # (Auto) 0.6 0-0.8 10 ^3/uL Basophils # (Auto) 0.1 0-0.2 10 ^3/uL Nucleated Red Blood Cells 0.1 % Sodium Level 137 136-145 mmol/L Potassium Level 6.3 *H 3.5-5.1 mmol/L Chloride Level 103 98-107 mmol/L Carbon Dioxide Level 24 20-31 mmol/L Anion Gap 10 5-15 Blood Urea Nitrogen 74 H 9-23 mg/dL Creatinine 3.04 H 0.550-1.02 mg/dL Glomerular Filtration Rate Calc 17 >90 mL/min BUN/Creatinine Ratio 24.3 H 10.0-20.0 Serum Glucose 282 H 74-106 mg/dL Lactic Acid Level 2.8 *H 0.4-2.0 mmol/L Calcium Level 9.8 8.7-10.4 mg/dL Magnesium Level 2.1 1.6-2.6 mg/dL Total Bilirubin 0.2 0.2-1.0 mg/dL Aspartate Amino Transferase (AST) 19 13-40 U/L Alanine Aminotransferase (ALT) 24 7-40 U/L Alkaline Phosphatase 83 46-116 U/L Creatine Kinase 84 34-145 U/L Troponin I High Sensitivity 14 </=34 ng/L B-Type Natriuretic Peptide 298.73 0-100 pg/mL Total Protein 6.4 5.7-8.2 g/dL Albumin 4.1 3.2-4.8 g/dL Lipase 39 12-53 U/L Salicylates Level < 3.0 -30 mg/dL Acetaminophen Level < 2.0 L 10.0-20.0 UG/ML Assessment Acute kidney injury superimposed Chronic Kidney Disease secondary hemodynamic mediated Acute hypercarbic respiratory failure, patient intubated on ventilator Morbid obesity Congestive heart failure exacerbation Pulmonary edema on the chest x-ray Bradycardia Diabetes mellitus type 2 Hyperglycemia Hyperkalemia History of CVA Hypertension Anemia of chronic kidney disease Recommendations Closely monitor fluid and electrolytes Avoid nephrotoxic medications Gee catheter Strict I&Os Emergent medical treatment for hyperkalemia Start Bumex drip at 0.5 mg/hr IV dobutamine Blood pressure control Insulin sliding scale DC IV bicarb drip Check urine electrolytes and urine protein excretion Check kidney ultrasound Cardiology consult We will continue to follow Patient seen and examined by myself in the in the ICU bed 10. Critical care time 35 minutes. I discussed my plan of care with the primary nurse at the bedside I would like to thank Libby for the consult, will follow up Plan discussed with: Other (Nurse) JESS MAK MD Dec 15, 2024 11:30
[2024-12-15] MEDS: ACCU-CHEK COMFORT CURVE STRIP VI SCH (12:11)
[2024-12-15] MEDS: AZITHROMYCIN 500MG/ 250ML 250 ML IV SCH (12:22)
[2024-12-15] MEDS: ENOXAPARIN SOD 30 MG/0.3 ML SYRINGE SC SCH (12:22)
[2024-12-15] MEDS: InsuLIN REG 1unit/0.01ml Soln (100units/ml) SC SCH (12:23)
[2024-12-15 12:24] LABS: Base Excess -3.3 mmol/L (-2.0-3.0)
--- NOTE | 2024-12-15 12:58 | DVH ---
INDICATION: michi TECHNIQUE: Multiple real-time sonographic images of the kidneys and bladder were obtained. COMPARISON: None FINDINGS: The right kidney measures 9.6 cm in length, which is normal in size. There is normal echoge nicity of the right kidney. No hydronephrosis. The left kidney measures 10.9 cm in length, which is normal in size. There is normal echogenicity of the left kidney. No hydronephrosis. There is a Gee catheter in the urinary bladder. Urinary bladder is decompressed. IMPRESSION: 1. Normal sonographic appearance of the kidneys. No hydronephrosis.
[2024-12-15] MEDS: BUMETANIDE INJECTION 12.5 MG in GIVE UN-DILUTED 0 ML IV SCH (13:20)
[2024-12-15] MEDS: hydrALAZINE HCL 20 MG/ML VL IV PRN (13:20)
[2024-12-15] MEDS: ACETAMINOPHEN 650 mg PER 20.3 mL UD GT PRN (13:21)
--- NOTE | 2024-12-15 14:00 | DVHSR ---
APPROVED REPORT EXAM: LIMITED Two-dimensional and M-mode echocardiogram. Blood Pressure: 157/54 mmHg INDICATION Chest Pain RISK FACTORS Obesity: Height: 5' 6", Weight: 299 DIMENSIONS LVDd6.0 (3.8-5.7cm)LA (2D)5.3 (1.9-4.0cm)Aortic Root (2.0-3.7cm) LVDs4.8 (2.5-4.0cm)LA (MM) (1.9-4.0cm)Aortic Cusp Exc (1.5-2.0cm) EF (%) 40.0 (55-70%)Rt. Atrium (1.9-4.0cm)Asc. Aorta cm Mitral Valve MitralMitral Stenosis E wave1.50m/sMV Mean GR.mmHg A wave0.60m/sMV Peak GR.mmHg E/A ratio2.52D MVAcm2 Aortic Valve Aortic ValveAortic Stenosis V11.10m/Eloisa Mean GR.9mmHg V21.90m/Eloisa Peak GR.15mmHg Other Information Quality : Technically LimitedRhythm : Technically limited study due to body habitus, patient position, patient laying on right side and on vent. Conclusion non diagnostic study consider optison given bodys sizue
[2024-12-15 14:24] LABS: Protein, Urine 34.5 mg/dL (1-14)
[2024-12-15 14:26] LABS: Creatinine, Urine 51.3 mg/dL (30.0-125.0); Urine Protein/Creatinine Ratio 0.67
[2024-12-15 14:33] LABS: Chloride 101 mmol/L (98-107)
[2024-12-15 14:34] LABS: Anion Gap 12 (5-15); Carbon Dioxide 23 mmol/L (20-31)
[2024-12-15 14:35] LABS: Calcium 10.1 mg/dL (8.7-10.4)
[2024-12-15 14:38] LABS: Urine Bacteria MANY /hpf (None Seen); Urine Blood TRACE /uL (Negative); Urine Clarity Turbid (Clear); Urine Color Light-Yellow (Yellow); Urine Protein, UAD TRACE (Negative); Urine Specific Gravity 1.011 (1.001-1.035); Urine Squamous Epithelial Cell FEW /hpf (<5); Urine Urobilinogen Normal (Negative); Urine WBC 39 /HPF (0-5); Urine pH 6.5 (5.0-9.0)
[2024-12-15 14:38] LABS: Potassium 5.5 mmol/L (3.5-5.1); Sodium 136 mmol/L (136-145)
[2024-12-15 14:39] LABS: BUN/Creatinine Ratio 22.2 (10.0-20.0); Magnesium 2.1 mg/dL (1.6-2.6)
[2024-12-15 14:41] LABS: Phosphorus 4.7 mg/dL (2.4-5.1)
[2024-12-15 14:44] LABS: Blood Urea Nitrogen 62 mg/dL (9-23); Glucose 331 mg/dL (74-106)
[2024-12-15] MEDS ORDERED: NITR100C6 PO (14:58)
[2024-12-15] MEDS ORDERED: PREG75CA90 PO (14:58)
[2024-12-15] MEDS ORDERED: SIMV40TA18 PO (14:58)
[2024-12-15] MEDS ORDERED: LUBI24CA12 PO (14:58)
[2024-12-15] MEDS ORDERED: ONDA-188 PO (14:58)
[2024-12-15] MEDS ORDERED: TRAZ-228 PO (14:58)
[2024-12-15] MEDS ORDERED: EMPA1TAB3 PO (14:58)
[2024-12-15] MEDS ORDERED: ALPR0.5T8 PO (14:58)
[2024-12-15] MEDS ORDERED: RIV20T PO (14:58)
[2024-12-15] MEDS ORDERED: LOSA-535 PO (14:58)
[2024-12-15] MEDS ORDERED: FAMO-12 PO (14:58)
[2024-12-15] MEDS ORDERED: METO1TAB9 PO (14:58)
[2024-12-15] MEDS ORDERED: INSU0.5M33 (14:58)
[2024-12-15] MEDS ORDERED: ASPI-325 PO (14:58)
[2024-12-15] MEDS ORDERED: LOSA-534 PO (14:58)
[2024-12-15] MEDS ORDERED: BUSP15TA60 PO (14:58)
[2024-12-15] MEDS ORDERED: PANT40T PO (14:58)
[2024-12-15] MEDS ORDERED: HYDR-3682 PO (14:58)
[2024-12-15] MEDS ORDERED: BACL10TA PO (14:58)
[2024-12-15] MEDS ORDERED: FURO40TA4 PO (14:58)
[2024-12-15] MEDS ORDERED: LIDO4PAD8 TOP (14:58)
[2024-12-15] MEDS ORDERED: DOXY-267 PO (14:58)
[2024-12-15] MEDS ORDERED: INSU100I49 (14:58)
[2024-12-15] MEDS ORDERED: FURO80TA3 PO (14:58)
[2024-12-15] MEDS ORDERED: AMIO200T13 PO (14:58)
[2024-12-15] MEDS ORDERED: FLUT50SP NAS (14:58)
[2024-12-15] MEDS ORDERED: SEMA4INJ (14:58)
[2024-12-15] MEDS ORDERED: GLIP5TAB21 PO (14:58)
--- NOTE | 2024-12-15 22:36 | DVHPN2 ---
Progress Note - Dictate Date Seen: Dec 15, 2024 Medical Necessity Reason Pt with a Central, PICC or Fol: Yes Subjective Patient was seen and evaluated in follow up in the ICU. Overnight, the patient was intubated for airway protection. WBC 17.6, K 5.8, BUN 73, FIG BAR MACHINE OPERATOR 2.82, GLUC 302. Chest x-ray shows patchy bilateral pulmonary airspace disease and suspected right pleural effusion. vital signs Vital Sign Date Time Temp Pulse Resp B/P (MAP) Pulse Ox O2 Delivery O2 Flow Rate FiO2 12/15/24 12:13 56 24 182/50 (94) 93 75 12/15/24 10:00 Mechanical Ventilator+ 12/15/24 08:00 98.2 98.2 12/14/24 21:34 60.0 Total Intake and Output 12/14/24 12/14/24 12/15/24 15:00 23:00 07:00 Intake Total 1280 ml 1691.24 ml Balance 1280 ml 1691.24 ml medications Current Medications Medications Dose Ordered Sig/Julito Route Start Time Stop Time Status Last Admin Dose Admin Midazolam HCl 50 ml @ 1 mls/hr Q24H IV 12/15/24 01:15 12/15/24 12:04 8 MLS/HR Dopamine HCl/ Dextrose 250 ml @ 25.5 mls/hr Q9H49M IV 12/15/24 02:45 12/15/24 02:45 102 MLS/HR Propofol 100 ml @ 4.08 mls/hr Q24H IV 12/15/24 05:15 12/15/24 12:05 28.56 MLS/HR Dopamine HCl/ Dextrose 250 ml @ 25.5 mls/hr Q9H49M IV 12/15/24 06:00 12/15/24 06:00 51 MLS/HR Ondansetron HCl 4 mg Q4HP PRN IV 12/15/24 07:00 Enoxaparin Sodium 30 mg DAILY SC 12/15/24 10:00 12/15/24 12:22 30 MG Nitroglycerin 0.4 mg Q5MINP PRN SL 12/15/24 07:00 Morphine Sulfate 2 mg Q30M PRN IV 12/15/24 07:00 Diagnostic Test (Pha) 1 strip Q6HR 12/15/24 12:00 12/15/24 12:11 1 STRIP Insulin Human Regular Q6HR SC 12/15/24 12:00 12/15/24 12:23 8 UNITS Dextrose 50 ml UD PRN IV 12/15/24 07:00 Ceftriaxone Sodium 50 ml @ 100 mls/hr DAILY@09 IV 12/15/24 09:00 12/15/24 08:53 100 MLS/HR Azithromycin 250 ml @ 125 mls/hr DAILY IV 12/15/24 10:00 12/15/24 12:22 125 MLS/HR Bumetanide 12.5 mg/Miscellaneous 50 ml @ 2 mls/hr Q24H IV 12/15/24 11:30 objective GENERAL: Intubated on ventilator. Morbidly obese . EYES: PERRL, EOMI. Anicteric. HENT: Moist mucous membranes. LUNGS: Decreased all breath sounds. CARDIOVASCULAR: Regular rate and rhythm. ABDOMEN: Soft, nontender and nondistended. EXTREMITIES: No edema. SKIN: Warm, dry. laboratory and microbiology Laboratory Tests 12/15/24 07:10 Test 12/15/24 07:10 Range/Units Serum Glucose 320 H 74-106 mg/dL Problem List Accidental medication overdose. Acute encephalopathy. Acute respiratory failure. Respiratory acidosis. Right pleural effusion. Leukocytosis Chest pain. Bradycardia. CHF. CAD. Acute renal failure Hyperkalemia. UTI. DM type 2. Hypertension. Morbid obesity. History of CVA. Assessment/Plan Continued all current supportive medical care. IV antibiotics as ordered. Diuretics with Bumex. DVT prophylactics. IV Hydralazine for SBP >150. Dopamine drip. Morphine for pain management. Additional plan as per the hospital course. Critical care time of 45 minutes provided to include time spent evaluation of patient at bedside, when appropriate patient/family education for diagnosis, treatment plan, review of pertinent medical information and discussion of care with specialty providers and PCP. Mechanical ventilator parameters, treatment and adjustments have personally been reviewed by me and treatment plan by milk route supervisor has also been reviewed. Plan discussed with: Other FRANTZ HOSKINS MD Dec 15, 2024 12:54
[2024-12-15 22:47] LABS: Chloride 102 mmol/L (98-107); Potassium 4.3 mmol/L (3.5-5.1); Sodium 139 mmol/L (136-145)
[2024-12-15 22:48] LABS: Anion Gap 11 (5-15); Calcium 9.7 mg/dL (8.7-10.4); Carbon Dioxide 26 mmol/L (20-31)
[2024-12-15 22:53] LABS: BUN/Creatinine Ratio 29.1 (10.0-20.0)
[2024-12-15 22:57] LABS: Blood Urea Nitrogen 66 mg/dL (9-23); Glucose 273 mg/dL (74-106)
[2024-12-16] VITALS (106 sets, daily range): BP systolic 88–200; BP diastolic 16–90; PULSE 70–93; RESP 13–30; TEMP 97.3–99.7; O2SAT 91–100
[2024-12-16] MEDS: LINEZOLID 600MG/300ML 300 ML IV SCH (01:07)
[2024-12-16 04:02] LABS: Eosinophils # (auto) 0.2 10 ^3/uL (0-0.8); Hemoglobin 10.1 g/dL (12.2-16.2); Lymphocytes # (auto) 0.7 10 ^3/uL (0.4-5.4)
[2024-12-16 04:05] LABS: Basophils # (auto) 0.1 10 ^3/uL (0-0.2); Basophils % (auto) 0.6 % (0.0-2.0); Lymphocytes % (auto) 6.6 % (10.0-50.0); Mean Corpuscular Hemoglobin 24.8 pg (28.0-32.0); Mean Corpuscular Hgb Conc. 31.7 g/dL (32.0-36.0); Mean Corpuscular Volume 78.3 fL (80.0-100.0); Monocytes # (auto) 0.7 10 ^3/uL (0-1.3); Neutrophils # (auto) 8.5 10 ^3/uL (1.6-8.6); Neutrophils % (auto) 83.8 % (37.0-80.0); Platelet Count (auto) 367 10^3/uL (140-450); Red Blood Cells 4.08 10^6/uL (4.0-5.20); Red Cell Distribution Width 18.4 % (11.8-14.3); White Blood Cell 10.1 10^3/uL (4.4-10.8)
[2024-12-16 04:14] LABS: Alanine Aminotransferase 31 U/L (7-40); Alkaline Phosphatase 74 U/L (46-116); Anion Gap 12 (5-15); Aspartate Aminotransferase 18 U/L (13-40); BUN/Creatinine Ratio 31.7 (10.0-20.0); Calcium 9.9 mg/dL (8.7-10.4); Carbon Dioxide 28 mmol/L (20-31); Chloride 100 mmol/L (98-107); Potassium 4.1 mmol/L (3.5-5.1); Sodium 140 mmol/L (136-145); Total Protein 6.8 g/dL (5.7-8.2)
[2024-12-16 04:18] LABS: Bilirubin, Total 0.3 mg/dL (0.2-1.0); Blood Urea Nitrogen 65 mg/dL (9-23); Glucose 284 mg/dL (74-106)
--- NOTE | 2024-12-16 05:06 | DVH ---
EXAM: XR Chest, 1 View CLINICAL INDICATION: Right pleural effusion TECHNIQUE: Frontal view of the chest. COMPARISON: XY CHEST XRAY 1 VIEW on DOS: 12/15/24, XY CHEST XRAY 1 VIEW on DOS: 12/14/24, XY CHEST XR AY 1 VIEW on DOS: 12/14/24 FINDINGS: LUNGS AND PLEURAL SPACES: See below. HEART: Cardiomegaly with mild congestion. MEDIASTINUM: Unremarkable. Normal mediastinal contour. BONES/JOINTS: Unremarkable. No acute fracture. TUBES, LINES AND DEVICES: The endotracheal tube (ETT) is in satisfactory position. Enteric tube ti p cannot be seen but is below the diaphragm. OTHER FINDINGS: . . .. IMPRESSION: Cardiomegaly with mild congestion.
[2024-12-16 07:31] LABS: Base Excess 3.5 mmol/L (-2.0-3.0)
[2024-12-16] MEDS ORDERED: FUROSEMIDE 20 MG/2 ML VIAL IV SCH (10:00)
[2024-12-16] MEDS: LABETALOL HCL 20 MG/4 ML VL IV ONE ×2 (11:20→12:30)
[2024-12-16] MEDS: amLODIPine BESYLATE 5 MG TAB GT SCH (11:52)
[2024-12-16] MEDS: fentaNYL Drip 2500mCg/250mlNS 250 ML IV SCH (11:55)
[2024-12-16] MEDS: hydrALAZINE HCL 25 MG TAB PO SCH (14:21)
[2024-12-16 14:37] LABS: Chloride 101 mmol/L (98-107); Potassium 3.5 mmol/L (3.5-5.1); Sodium 142 mmol/L (136-145)
[2024-12-16 14:38] LABS: Anion Gap 11 (5-15); Carbon Dioxide 30 mmol/L (20-31)
[2024-12-16 14:39] LABS: Calcium 9.7 mg/dL (8.7-10.4)
[2024-12-16 14:43] LABS: BUN/Creatinine Ratio 35.7 (10.0-20.0)
[2024-12-16 14:44] LABS: Magnesium 1.7 mg/dL (1.6-2.6)
[2024-12-16 14:49] LABS: Blood Urea Nitrogen 61 mg/dL (9-23); Glucose 211 mg/dL (74-106)
[2024-12-16] MEDS: SODIUM CHL 0.9% 100 ML IV ONE (16:00)
[2024-12-16] MEDS: MAGNESIUM SULFATE 1GM/100ML 100 ML IV SCH (16:56)
[2024-12-16] MEDS: POTASSIUM CHL 20MEQ/50ML 50 ML IV SCH (16:58)
[2024-12-16] MEDS: ISOSORBIDE DINITRATE 10 MG TAB PO SCH (18:43)
[2024-12-16] MEDS ORDERED: AMIODARONE HCL 200 MG TAB PO ONE (19:00)
--- NOTE | 2024-12-16 19:00 | DVHPNRES ---
Progress Note Date Seen: Dec 16, 2024 Resident Creating Document: JACKY GARCIA RESIDENT Medical Necessity Reason Pt with a Central, PICC or Fol: Yes Subjective Review of Systems Patient is a 59-year-old female with a past medical history of COPD, insulin dependent type 2 diabetes mellitus, congestive heart failure, coronary artery disease was brought to the hospital via EMS with altered mental status and bradycardia. As per patient's niece who is her take her farm planner, when she went to her room to give in the afternoon, she found with the patient to be confused and she checked her vitals reported low blood pressure and heart rate in 30s which she suspected might be because she took her blood pressure medications twice, following which she called EMS and the patient was brought to the hospital. She reports patient has been in and out of the hospital since the past 6 months for complains of shortness of breath. The last time she was hospitalized was in [facility] about 2.5-3 months ago following which she was sent to rehab facility and [facility] from where she got discharged about a week ago to home. Patient has been bed-bound since the last 8 years. At home patient has an oxygen concentrator and uses oxygen at 8-10 L per minute. Patient came in with altered mental status and ABG showed respiratory acidosis following which she was intubated and put on mechanical ventilation. Past medical history: COPD with 8-10 L oxygen per minute at home, insulin dependent type 2 diabetes mellitus, congestive heart failure, coronary artery disease, atrial fibrillation Past surgical history: Denies Social history: Patient is bed-bound, her niece as the farm planner, denies smoking, alcohol, any other drug use Home medications: Amiodarone 200 mg b.i.d., aspirin 81 mg daily, Jardiance 25 mg daily, fluticasone inhaler, Lasix 80 mg, metoprolol succinate 100 mg daily, losartan 100 mg daily, Eliquis 5 mg b.i.d. Review of systems Patient seen and examined at the bedside Patient is sedated and on mechanical ventilation Currently off vasopressors, hemodynamically stable with episodes of hypertension SBP > 150 Patient had a urine output of >4L overnight while being on the Bumex drip Indwelling Gee's catheter for the last 2.5-3 months, changed Objective vital signs Vital Sign Date Time Temp Pulse Resp B/P (MAP) Pulse Ox O2 Delivery O2 Flow Rate FiO2 12/16/24 16:15 85 24 134/53 (80) 93 35 12/16/24 14:00 Mechanical Ventilator+ 12/16/24 12:45 98.1 208.6 12/14/24 21:34 60.0 Total Intake and Output 12/15/24 12/15/24 12/16/24 15:00 23:00 07:00 Intake Total 1041.30 ml 702.54 ml 734.42 ml Output Total 8975 ml 4350 ml Balance 1041.30 ml -8272.46 ml -3615.58 ml medications Current Medications Medications Dose Ordered Sig/Julito Route Start Time Stop Time Status Last Admin Dose Admin Propofol 100 ml @ 4.08 mls/hr Q24H IV 12/15/24 05:15 12/16/24 16:58 32.64 MLS/HR Dopamine HCl/ Dextrose 250 ml @ 25.5 mls/hr Q9H49M IV 12/15/24 06:00 12/15/24 20:51 35.7 MLS/HR Ondansetron HCl 4 mg Q4HP PRN IV 12/15/24 07:00 Enoxaparin Sodium 30 mg DAILY SC 12/15/24 10:00 12/16/24 08:43 30 MG Nitroglycerin 0.4 mg Q5MINP PRN SL 12/15/24 07:00 Morphine Sulfate 2 mg Q30M PRN IV 12/15/24 07:00 Diagnostic Test (Pha) 1 strip Q6HR 12/15/24 12:00 12/16/24 11:52 1 STRIP Insulin Human Regular Q6HR SC 12/15/24 12:00 12/16/24 12:25 3 UNITS Dextrose 50 ml UD PRN IV 12/15/24 07:00 Ceftriaxone Sodium 50 ml @ 100 mls/hr DAILY@09 IV 12/15/24 09:00 12/16/24 08:41 100 MLS/HR Azithromycin 250 ml @ 125 mls/hr DAILY IV 12/15/24 10:00 12/16/24 11:51 125 MLS/HR Bumetanide 12.5 mg/Miscellaneous 50 ml @ 2 mls/hr Q24H IV 12/15/24 11:30 12/16/24 08:42 2 MLS/HR Hydralazine HCl 10 mg Q6HP PRN IV 12/15/24 13:00 12/16/24 09:04 10 MG Acetaminophen 650 mg Q6HP PRN GT 12/15/24 13:00 12/15/24 13:21 650 MG Linezolid 300 ml @ 150 mls/hr Q12HR IV 12/15/24 23:30 12/16/24 09:32 150 MLS/HR Amlodipine Besylate 10 mg DAILY GT 12/16/24 12:00 12/16/24 11:52 10 MG Fentanyl Citrate 250 ml @ 2.5 mls/hr Q24H IV 12/16/24 11:15 12/16/24 11:55 2.5 MLS/HR Hydralazine HCl 50 mg TID PO 12/16/24 14:00 12/16/24 14:21 50 MG Isosorbide Dinitrate 30 mg TID@06,12,18 PO 12/16/24 18:00 Enteral Nutritional Formula 1,000 ml 40ML/HR GT 12/16/24 12:30 Mupirocin 1 applic BID EACHNOSTRI 12/16/24 22:00 12/21/24 21:59 Potassium Chloride 50 ml @ 25 mls/hr Q2H IV 12/16/24 16:00 12/16/24 19:59 12/16/24 16:58 25 MLS/HR Magnesium Sulfate/ Dextrose 100 ml @ 100 mls/hr Q1HR IV 12/16/24 16:00 12/16/24 17:59 12/16/24 16:56 100 MLS/HR Examination Constitutional: Patient was morbidly obese, sedated and mechanically ventilated with RASS -3 Gen - no pallor, no icterus, no cyanosis, no clubbing, no LAD, trace edema. Skin - Patients skin is warm and dry. HEENT - normocephalic, atraumatic, moist mucous membranes. Neck - full ROM, no LAD, JVD could not be assessed. Pulmonary - B/L diminished breath sounds with inspiratory crackles, no wheezing cardiovascular - variable S1,S2 heard, no added sounds, no murmurs heard. GI - obese, soft abdomen, large area of dark discoloration below the umbilicus Neurological - currently mechanically ventilated, RASS -3, gag reflex present, pupils equal and reactive laboratory and microbiology Laboratory Tests 12/16/24 14:00 12/16/24 03:15 Test 12/16/24 14:00 Range/Units Serum Glucose 211 H 74-106 mg/dL Microbiology Date/Time Source Procedure Growth Status 12/15/24 13:45 Urine - Gee Port Urine Culture - Preliminary Resulted 12/15/24 11:44 Nose MRSA Screen - Final Methicillin Resistant S.aureus Complete 12/15/24 02:21 Sputum Gram Stain - Final Resulted 12/15/24 02:21 Sputum Respiratory Culture - Preliminary Resulted 12/14/24 19:23 Blood Blood Culture - Preliminary NO GROWTH AFTER 24 HOURS OF INCUBATION. Resulted Problem List/Assessment/Plan Problem List/Assessment/Plan Neurology Acute metabolic encephalopathy likely due to hypercapnia - on mechanical ventilation - morning ABG showed metabolic alkalosis likely due to diuresis Respiratory Acute on chronic hypoxic/hypercarbic respiratory failure likely due to COPD/LAZARA/OHS Sepsis likely due to pneumonia Pneumonia likely due to Gram +/- bacteria Pulmonary edema - on ventilator with a FiO2 35%, peep 5, respiratory rate 24, tidal volume 500 - IV antibiotics linezolid and ceftriaxone - Bumex drip Cardiovascular Acute on chronic heart failure with reduced ejection fraction Pulmonary edema likely due to above Hypertensive heart disease with heart failure Bradycardia with AV block, junctional rhythm, resolved ? H/o atrial fibrillation - ECG showed bradycardia with prolonged [place] interval - on Bumex drip - hydralazine 50 mg t.i.d. and isosorbide dinitrate 30 mg t.i.d. - on enoxaparin therapeutic dose - amiodarone Nephrology VIVI on CKD likely prerenal hemodynamically mediated - FENa < 1% - BUN and creatinine improving - urine output over last 24 hours > 4L - continued on Bumex drip Endocrinology Insulin-dependent type 2 diabetes mellitus with hyperglycemia - on insulin sliding scale - on Glucerna at 40 mL/hour Infectious disease Sepsis likely due to pneumonia UTI with long-term indwelling Gee catheter MRSA nares positive - urine culture shows > [id number] g negative rods - respiratory culture pending - blood cultures after 24 hours showed no growth - on IV linezolid and ceftriaxone - mupirocin ointment Diet: Glucerna at 40 mL/hour via NG PUD prophylaxis: Protonix DVT prophylaxis: Enoxaparin Left IJV TLC inserted on 12/15 Gee's catheter inserted on 12/16 Goals of care discussed with the patient's niece for over 30 minutes. Full code Critical care time spent excluding procedures: 81 minutes Plan discussed with Dr. Elliott Plan discussed with: Other (Niece, RN (Antonieta)) My Orders My Orders Orders - JACKY GARCIA Procedure Category Date Status Time Insert/Manage Urinary TORRES 12/16/24 In Process Catheter 13:58 Mupirocin 2% Oint PHA 12/16/24 In Process Mrsa Nares (Bactroban 22:00 Dietary Evaluation Review Comments: 1. Pt is on fat energy support through Propofol of 860 kca, the TF needs to be a low fat, high proteiin formula. Suggest using Vital High Protein @45ml/hr, in 24 hr, pt will receive 1080 kca, 94 g protein, This formula will satisfy pt's protein neeeds at 79% and energy needs at 79% including the 860 kcal provided by Propofol running at 32.6ml/hr. Expected Outcomes/Goals: 1. Reassess protein and energy needs when pt is off vent, based on her true weight without fluid retention and possibably an improved kideny function, 2. [facility] with updated protein and energy needs, when medically feasible providing that she passes a TEST ARCHITECT eval. Date of Service: Dec 16, 2024 Billing Provider: IAN ELLIOTT MD Common Visit Codes: NOT BILLABLE JACKY GARCIA RESIDENT Dec 16, 2024 19:00 IAN ELLIOTT MD Dec 17, 2024 10:01
[2024-12-16] MEDS ORDERED: PRED20TA2 PO (19:29)
[2024-12-16] MEDS ORDERED: ATOR-507 PO (19:30)
[2024-12-16] MEDS ORDERED: MECL-90 PO (19:30)
[2024-12-16] MEDS: MUPIROCIN 2% OINT 15gm or 22gm FOR MRSA NARES EACHNOSTRI SCH (22:00)
--- NOTE | 2024-12-16 22:21 | DVHPN2 ---
Progress Note - Dictate Date Seen: Dec 16, 2024 Medical Necessity Reason Pt with a Central, PICC or Fol: Yes Subjective Patient was seen and evaluated in follow up in the ICU. Patient is intubated and sedated on ventilator. 35% FiO2. Patient is currently off vasopressors. Chest x- ray shows cardiomegaly with mild congestion. BUN 61, Nurse Educator 1.71. vital signs Vital Sign Date Time Temp Pulse Resp B/P (MAP) Pulse Ox O2 Delivery O2 Flow Rate FiO2 12/16/24 20:18 89 27 119/55 (76) 96 35 12/16/24 19:00 98.1 208.6 12/16/24 18:00 Mechanical Ventilator+ 12/14/24 21:34 60.0 Total Intake and Output 12/15/24 12/15/24 12/16/24 15:00 23:00 07:00 Intake Total 1041.30 ml 702.54 ml 734.42 ml Output Total 8975 ml 4350 ml Balance 1041.30 ml -8272.46 ml -3615.58 ml medications Current Medications Medications Dose Ordered Sig/Julito Route Start Time Stop Time Status Last Admin Dose Admin Propofol 100 ml @ 4.08 mls/hr Q24H IV 12/15/24 05:15 12/16/24 19:35 32.64 MLS/HR Diagnostic Test (Pha) 1 strip Q6HR 12/15/24 12:00 12/16/24 18:34 1 STRIP Insulin Human Regular Q6HR SC 12/15/24 12:00 12/16/24 18:53 4 UNITS Dextrose 50 ml UD PRN IV 12/15/24 07:00 Ceftriaxone Sodium 50 ml @ 100 mls/hr DAILY@09 IV 12/15/24 09:00 12/16/24 08:41 100 MLS/HR Bumetanide 12.5 mg/Miscellaneous 50 ml @ 2 mls/hr Q24H IV 12/15/24 11:30 12/16/24 08:42 2 MLS/HR Hydralazine HCl 10 mg Q6HP PRN IV 12/15/24 13:00 12/16/24 09:04 10 MG Acetaminophen 650 mg Q6HP PRN GT 12/15/24 13:00 12/15/24 13:21 650 MG Linezolid 300 ml @ 150 mls/hr Q12HR IV 12/15/24 23:30 12/16/24 09:32 150 MLS/HR Amlodipine Besylate 10 mg DAILY GT 12/16/24 12:00 12/16/24 11:52 10 MG Fentanyl Citrate 250 ml @ 2.5 mls/hr Q24H IV 12/16/24 11:15 12/16/24 11:55 2.5 MLS/HR Hydralazine HCl 50 mg TID PO 12/16/24 14:00 12/16/24 14:21 50 MG Isosorbide Dinitrate 30 mg TID@06,12,18 PO 12/16/24 18:00 12/16/24 18:43 30 MG Enteral Nutritional Formula 1,000 ml 40ML/HR GT 12/16/24 12:30 Mupirocin 1 applic BID EACHNOSTRI 12/16/24 22:00 12/21/24 21:59 Enoxaparin Sodium 150 mg Q12HR SC 12/16/24 22:00 Ipratropium [place] 0.5 mg Q6HR NEB 12/17/24 00:00 Albuterol 2.5 mg Q6HR NEB 12/17/24 00:00 Pantoprazole Sodium 40 mg DAILY IV 12/17/24 10:00 objective GENERAL: Intubated on ventilator. Morbidly obese . EYES: PERRL, EOMI. Anicteric. HENT: Moist mucous membranes. LUNGS: Decreased all breath sounds. CARDIOVASCULAR: Regular rate and rhythm. ABDOMEN: Soft, nontender and nondistended. EXTREMITIES: No edema. SKIN: Warm, dry. laboratory and microbiology Laboratory Tests 12/16/24 14:00 12/16/24 03:15 Test 12/16/24 14:00 Range/Units Serum Glucose 211 H 74-106 mg/dL Problem List Accidental medication overdose. Acute encephalopathy. Acute respiratory failure. Respiratory acidosis. Right pleural effusion. Leukocytosis Chest pain. Bradycardia. CHF. CAD. Acute renal failure Hyperkalemia. UTI. DM type 2. Hypertension. Morbid obesity. History of CVA. Assessment/Plan Continued all current supportive medical care. IV antibiotics as ordered. Diuretics with Bumex. DVT prophylactics. IV Hydralazine for SBP >150. Dopamine drip. Morphine for pain management. Additional plan as per the hospital course. Critical care time of 45 minutes provided to include time spent evaluation of patient at bedside, when appropriate patient/family education for diagnosis, treatment plan, review of pertinent medical information and discussion of care with specialty providers and PCP. Mechanical ventilator parameters, treatment and adjustments have personally been reviewed by me and treatment plan by show card letterer has also been reviewed. Dietary Evaluation Review Comments: 1. Pt is on fat energy support through Propofol of 860 kca, the TF needs to be a low fat, high proteiin formula. Suggest using Vital High Protein @45ml/hr, in 24 hr, pt will receive 1080 kca, 94 g protein, This formula will satisfy pt's protein neeeds at 79% and energy needs at 79% including the 860 kcal provided by Propofol running at 32.6ml/hr. Expected Outcomes/Goals: 1. Reassess protein and energy needs when pt is off vent, based on her true weight without fluid retention and possibably an improved kideny function, 2. Advance to CCHO-diet with updated protein and energy needs, when medically feasible providing that she passes a FOURDRINIER TENDER eval. Plan discussed with: FRANTZ Leyva MD Dec 16, 2024 22:21
[2024-12-16] MEDS: ENOXAPARIN SOD 150 MG/1 ML SYRINGE SC SCH (22:54)
[2024-12-16] MEDS: Glucerna 1.2 Cal 1Liter BOTTLE GT SCH (23:37)
[2024-12-17] VITALS (95 sets, daily range): BP systolic 95–178; BP diastolic 44–75; PULSE 78–95; RESP 10–31; TEMP 97.9–99.3; O2SAT 89–100
[2024-12-17] MEDS: ALBUTEROL SULF 2.5 MG/0.5ML(0.5%) NEB SOLN NEB SCH (00:03)
[2024-12-17] MEDS: IPRATROPIUM BROM 0.5 MG/2.5ML INH SOL NEB SCH (00:03)
[2024-12-17 04:46] LABS: Basophils # (auto) 0.1 10 ^3/uL (0-0.2); Basophils % (auto) 0.6 % (0.0-2.0); Eosinophils # (auto) 0.2 10 ^3/uL (0-0.8); Eosinophils % (auto) 1.8 % (0.0-7.0); Hematocrit 32.2 % (36.0-46.0); Lymphocytes # (auto) 0.8 10 ^3/uL (0.4-5.4); Lymphocytes % (auto) 7.6 % (10.0-50.0); Mean Corpuscular Hemoglobin 24.3 pg (28.0-32.0); Mean Corpuscular Hgb Conc. 31.1 g/dL (32.0-36.0); Monocytes % (auto) 9.1 % (0.0-12.0); Neutrophils # (auto) 8.9 10 ^3/uL (1.6-8.6); Neutrophils % (auto) 80.9 % (37.0-80.0); Nucleated Red Blood Cells % 0.1 %; Platelet Count (auto) 382 10^3/uL (140-450); Red Blood Cells 4.13 10^6/uL (4.0-5.20); Red Cell Distribution Width 18.6 % (11.8-14.3)
[2024-12-17 05:05] LABS: Chloride 102 mmol/L (98-107); Potassium 3.6 mmol/L (3.5-5.1); Sodium 143 mmol/L (136-145)
[2024-12-17 05:06] LABS: Anion Gap 9 (5-15); Calcium 9.4 mg/dL (8.7-10.4)
[2024-12-17 05:11] LABS: BUN/Creatinine Ratio 36.1 (10.0-20.0); Magnesium 2.2 mg/dL (1.6-2.6)
--- NOTE | 2024-12-17 05:14 | DVH ---
EXAM: XR Chest, 1 View CLINICAL INDICATION: Pulmonary edema, s/p mechanical ventilation TECHNIQUE: Frontal view of the chest. COMPARISON: XY CHEST PORTABLE on DOS: 12/16/24, XY CHEST XRAY 1 VIEW on DOS: 12/15/24, XY CHEST XRAY 1 VIEW on DOS: 12/14/24, XY CHEST XRAY 1 VIEW on DOS: 12/14/24 FINDINGS: LUNGS AND PLEURAL SPACES: Pulmonary congestion and edema. Pneumonia cannot be excluded. Bilateral pleural effusions. No pneumothorax. HEART: Unremarkable. No cardiomegaly. MEDIASTINUM: Unremarkable. Normal mediastinal contour. BONES/JOINTS: Unremarkable. No acute fracture. TUBES, LINES AND DEVICES: The endotracheal tube (ETT) is in satisfactory position. Left internal j ugular central venous catheter tip in the superior vena cava. Enteric tube tip in the stomach. OTHER FINDINGS: . . . IMPRESSION: 1. Pulmonary congestion and edema. Pneumonia cannot be excluded. 2. Bilateral pleural effusions.
[2024-12-17 05:37] LABS: Blood Urea Nitrogen 57 mg/dL (9-23); Carbon Dioxide 32 mmol/L (20-31); Glucose 180 mg/dL (74-106)
[2024-12-17] MEDS ORDERED: POTASSIUM CHL 20MEQ/100ML 100 ML IV ONE (08:15)
[2024-12-17 08:52] LABS: Base Excess 6.8 mmol/L (-2.0-3.0)
[2024-12-17] MEDS: POTASSIUM CHL 20MEQ/50ML 50 ML IV ONE (09:09)
[2024-12-17] MEDS: PANTOPRAZOLE 40 MG/10 ML VIAL INJ IV SCH (09:10)
[2024-12-17] MEDS ORDERED: AMIODARONE HCL 200 MG TAB PO SCH (10:00)
--- NOTE | 2024-12-17 10:13 | DVHPN2 ---
Progress Note Date Seen: Dec 16, 2024 Medical Necessity Reason Pt with a Central, PICC or Fol: Yes The following are medically ne: Gee Catheter Subjective Patient reports: Other (late entry seen on 12/16/24 agree with bumex drip , started norvasc po due to high BP ) Review of Systems: RESPIRATORY:Abnormal Objective vital signs Vital Sign Date Time Temp Pulse Resp B/P (MAP) Pulse Ox O2 Delivery O2 Flow Rate FiO2 12/17/24 08:29 81 22 140/62 (88) 92 40 12/17/24 05:57 Mechanical Ventilator+ 12/17/24 04:30 98.8 98.8 Total Intake and Output 12/16/24 12/16/24 12/17/24 14:59 22:59 06:59 Intake Total 914.62 ml 639.26 ml 738.42 ml Output Total 4300 ml 3300 ml Balance 914.62 ml -3660.74 ml -2561.58 ml medications Current Medications Medications Dose Ordered Sig/Julito Route Start Time Stop Time Status Last Admin Dose Admin Propofol 100 ml @ 4.08 mls/hr Q24H IV 12/15/24 05:15 12/17/24 07:28 28.56 MLS/HR Diagnostic Test (Pha) 1 strip Q6HR 12/15/24 12:00 12/17/24 06:05 1 STRIP Insulin Human Regular Q6HR SC 12/15/24 12:00 12/17/24 06:26 4 UNITS Dextrose 50 ml UD PRN IV 12/15/24 07:00 Ceftriaxone Sodium 50 ml @ 100 mls/hr DAILY@09 IV 12/15/24 09:00 12/17/24 09:08 100 MLS/HR Bumetanide 12.5 mg/Miscellaneous 50 ml @ 2 mls/hr Q24H IV 12/15/24 11:30 12/17/24 04:05 2 MLS/HR Acetaminophen 650 mg Q6HP PRN GT 12/15/24 13:00 12/15/24 13:21 650 MG Fentanyl Citrate 250 ml @ 2.5 mls/hr Q24H IV 12/16/24 11:15 12/16/24 11:55 2.5 MLS/HR Hydralazine HCl 50 mg TID PO 12/16/24 14:00 12/17/24 05:31 50 MG Isosorbide Dinitrate 30 mg TID@06,12,18 PO 12/16/24 18:00 12/17/24 05:32 30 MG Enteral Nutritional Formula 1,000 ml 40ML/HR GT 12/16/24 12:30 12/16/24 23:37 1,000 ML Mupirocin 1 applic BID EACHNOSTRI 12/16/24 22:00 12/21/24 21:59 12/17/24 09:12 1 APPLIC Enoxaparin Sodium 150 mg Q12HR SC 12/16/24 22:00 12/17/24 09:11 150 MG Ipratropium [place] 0.5 mg Q6HR NEB 12/17/24 00:00 12/17/24 00:03 0.5 MG Albuterol 2.5 mg Q6HR NEB 12/17/24 00:00 12/17/24 06:32 2.5 MG Pantoprazole Sodium 40 mg DAILY IV 12/17/24 10:00 12/17/24 09:10 40 MG Examination: GENERAL:Abnormal, CVS:Abnormal, SKIN:Abnormal laboratory and microbiology Laboratory Tests 12/17/24 04:07 Test 12/17/24 04:07 Range/Units Serum Glucose 180 H 74-106 mg/dL Microbiology Date/Time Source Procedure Growth Status 12/15/24 13:45 Urine - Gee Port Urine Culture - Preliminary Escherichia coli - ESBL Resulted 12/15/24 11:44 Nose MRSA Screen - Final Methicillin Resistant S.aureus Complete 12/15/24 02:21 Sputum Gram Stain - Final Resulted 12/15/24 02:21 Sputum Respiratory Culture - Preliminary Resulted 12/14/24 19:23 Blood Blood Culture - Preliminary NO GROWTH AFTER 48 HOURS OF INCUBATION. Resulted Problem List/Assessment/Plan Problem List/Assessment/Plan Admitted for acute respiratory distress in the setting of possible medication overdose Acute kidney injury in setting of severe Hypertension Hypertensive emergency fluid overload-> diastolic HF acute respiratory failure morbid obesity History of stroke Bumex drip Blood pressure medication -> started as p.o. Strict Is&Os Plan discussed with: Other My Orders My Orders Orders - DIXIE LUONG MD Procedure Category Date Status Time Basic Metabolic Panel LAB 12/18/24 Verified 04:00 Dietary Evaluation Review Comments: 1. Pt is on fat energy support through Propofol of 860 kca, the TF needs to be a low fat, high proteiin formula. Suggest using Vital High Protein @45ml/hr, in 24 hr, pt will receive 1080 kca, 94 g protein, This formula will satisfy pt's protein neeeds at 79% and energy needs at 79% including the 860 kcal provided by Propofol running at 32.6ml/hr. Expected Outcomes/Goals: 1. Reassess protein and energy needs when pt is off vent, based on her true weight without fluid retention and possibably an improved kideny function, 2. Advance to CCHO-diet with updated protein and energy needs, when medically feasible providing that she passes a OUTSOLE SPLICER eval. Critical Care Time (mins): 33 DIXIE LUONG MD Dec 17, 2024 10:13
--- NOTE | 2024-12-17 10:14 | DVHPN2 ---
Progress Note Date Seen: Dec 17, 2024 Medical Necessity Reason Pt with a Central, PICC or Fol: Yes The following are medically ne: Gee Catheter Subjective Review of Systems: RESPIRATORY:Abnormal Objective vital signs Vital Sign Date Time Temp Pulse Resp B/P (MAP) Pulse Ox O2 Delivery O2 Flow Rate FiO2 12/17/24 08:29 81 22 140/62 (88) 92 40 12/17/24 05:57 Mechanical Ventilator+ 12/17/24 04:30 98.8 98.8 Total Intake and Output 12/16/24 12/16/24 12/17/24 14:59 22:59 06:59 Intake Total 914.62 ml 639.26 ml 738.42 ml Output Total 4300 ml 3300 ml Balance 914.62 ml -3660.74 ml -2561.58 ml medications Current Medications Medications Dose Ordered Sig/Julito Route Start Time Stop Time Status Last Admin Dose Admin Propofol 100 ml @ 4.08 mls/hr Q24H IV 12/15/24 05:15 12/17/24 07:28 28.56 MLS/HR Diagnostic Test (Pha) 1 strip Q6HR 12/15/24 12:00 12/17/24 06:05 1 STRIP Insulin Human Regular Q6HR SC 12/15/24 12:00 12/17/24 06:26 4 UNITS Dextrose 50 ml UD PRN IV 12/15/24 07:00 Ceftriaxone Sodium 50 ml @ 100 mls/hr DAILY@09 IV 12/15/24 09:00 12/17/24 09:08 100 MLS/HR Bumetanide 12.5 mg/Miscellaneous 50 ml @ 2 mls/hr Q24H IV 12/15/24 11:30 12/17/24 04:05 2 MLS/HR Acetaminophen 650 mg Q6HP PRN GT 12/15/24 13:00 12/15/24 13:21 650 MG Fentanyl Citrate 250 ml @ 2.5 mls/hr Q24H IV 12/16/24 11:15 12/16/24 11:55 2.5 MLS/HR Hydralazine HCl 50 mg TID PO 12/16/24 14:00 12/17/24 05:31 50 MG Isosorbide Dinitrate 30 mg TID@06,12,18 PO 12/16/24 18:00 12/17/24 05:32 30 MG Enteral Nutritional Formula 1,000 ml 40ML/HR GT 12/16/24 12:30 12/16/24 23:37 1,000 ML Mupirocin 1 applic BID EACHNOSTRI 12/16/24 22:00 12/21/24 21:59 12/17/24 09:12 1 APPLIC Enoxaparin Sodium 150 mg Q12HR SC 12/16/24 22:00 12/17/24 09:11 150 MG Ipratropium [employer] 0.5 mg Q6HR NEB 12/17/24 00:00 12/17/24 00:03 0.5 MG Albuterol 2.5 mg Q6HR NEB 12/17/24 00:00 12/17/24 06:32 2.5 MG Pantoprazole Sodium 40 mg DAILY IV 12/17/24 10:00 12/17/24 09:10 40 MG Examination: GENERAL:Abnormal, LUNGS:Abnormal, ABDOMEN:Abnormal laboratory and microbiology Laboratory Tests 12/17/24 04:07 Test 12/17/24 04:07 Range/Units Serum Glucose 180 H 74-106 mg/dL Microbiology Date/Time Source Procedure Growth Status 12/15/24 13:45 Urine - Gee Port Urine Culture - Preliminary Escherichia coli - ESBL Resulted 12/15/24 11:44 Nose MRSA Screen - Final Methicillin Resistant S.aureus Complete 12/15/24 02:21 Sputum Gram Stain - Final Resulted 12/15/24 02:21 Sputum Respiratory Culture - Preliminary Resulted 12/14/24 19:23 Blood Blood Culture - Preliminary NO GROWTH AFTER 48 HOURS OF INCUBATION. Resulted Problem List/Assessment/Plan Problem List/Assessment/Plan Admitted for acute respiratory distress in the setting of possible medication overdose Acute kidney injury in setting of severe Hypertension Baseline renal function is unknown Hypertensive emergency fluid overload-> diastolic HF acute respiratory failure morbid obesity History of stroke Bumex drip -> still hypervolemic we will continue with diuretic, monitor for signs of hypotension during aggressive diuresis Blood pressure medication -> started as p.o. continue current dose Strict Is&Os Renal function is improving with fluid removal monitor electrolytes closely Plan discussed with: Other My Orders My Orders Orders - DIXIE LUONG MD Procedure Category Date Status Time Basic Metabolic Panel LAB 12/18/24 Verified 04:00 Dietary Evaluation Review Comments: 1. Pt is on fat energy support through Propofol of 860 kca, the TF needs to be a low fat, high proteiin formula. Suggest using Vital High Protein @45ml/hr, in 24 hr, pt will receive 1080 kca, 94 g protein, This formula will satisfy pt's protein neeeds at 79% and energy needs at 79% including the 860 kcal provided by Propofol running at 32.6ml/hr. Expected Outcomes/Goals: 1. Reassess protein and energy needs when pt is off vent, based on her true weight without fluid retention and possibably an improved kideny function, 2. Advance to CCHO-diet with updated protein and energy needs, when medically feasible providing that she passes a CYLINDER SANDER OPERATOR eval. Critical Care Time (mins): 36 DIXIE LUONG MD Dec 17, 2024 10:14
[2024-12-17] MEDS: MEROPENEM 1GM IVPB 50 ML IV ONE (14:48)
[2024-12-17] MEDS: BUMETANIDE 1mg/4ml VIAL (0.25mg/ml) IV SCH (17:44)
--- NOTE | 2024-12-17 18:47 | DVHPNRES ---
Progress Note Date Seen: Dec 17, 2024 Resident Creating Document: JACKY GARCIA RESIDENT Medical Necessity Reason Pt with a Central, PICC or Fol: Yes The following are medically ne: Gee Catheter Subjective Review of Systems Patient is a 59-year-old female with a past medical history of COPD, insulin dependent type 2 diabetes mellitus, congestive heart failure, coronary artery disease was brought to the hospital via EMS with altered mental status and bradycardia. As per patient's niece who is her take her stranding supervisor, when she went to her room to give in the afternoon, she found with the patient to be confused and she checked her vitals reported low blood pressure and heart rate in 30s which she suspected might be because she took her blood pressure medications twice, following which she called EMS and the patient was brought to the hospital. She reports patient has been in and out of the hospital since the past 6 months for complains of shortness of breath. The last time she was hospitalized was in [facility] about 2.5-3 months ago following which she was sent to rehab facility and [facility] from where she got discharged about a week ago to home. Patient has been bed-bound since the last 8 years. At home patient has an oxygen concentrator and uses oxygen at 8-10 L per minute. Patient came in with altered mental status and ABG showed respiratory acidosis following which she was intubated and put on mechanical ventilation. Past medical history: COPD with 8-10 L oxygen per minute at home, insulin dependent type 2 diabetes mellitus, congestive heart failure, coronary artery disease, atrial fibrillation Past surgical history: Denies Social history: Patient is bed-bound, her niece as the stranding supervisor, denies smoking, alcohol, any other drug use Home medications: Amiodarone 200 mg b.i.d., aspirin 81 mg daily, Jardiance 25 mg daily, fluticasone inhaler, Lasix 80 mg, metoprolol succinate 100 mg daily, losartan 100 mg daily, Eliquis 5 mg b.i.d. Review of systems Patient seen and examined at the bedside Patient is sedated and on mechanical ventilation off vasopressors, hemodynamically stable Patient had a urine output of >4L overnight while being on the Bumex drip with total negative balance of -15L Objective vital signs Vital Sign Date Time Temp Pulse Resp B/P (MAP) Pulse Ox O2 Delivery O2 Flow Rate FiO2 4/15/25 18:22 85 22 108/63 (78) 95 35 12/17/24 18:22 Mechanical Ventilator+ 12/17/24 18:00 98.2 98.2 Total Intake and Output 12/16/24 12/16/24 12/17/24 15:00 23:00 07:00 Intake Total 912.12 ml 637.68 ml 743.42 ml Output Total 4300 ml 3300 ml Balance 912.12 ml -3662.32 ml -2556.58 ml medications Current Medications Medications Dose Ordered Sig/Julito Route Start Time Stop Time Status Last Admin Dose Admin Propofol 100 ml @ 4.08 mls/hr Q24H IV 12/15/24 05:15 12/17/24 17:36 36.72 MLS/HR Diagnostic Test (Pha) 1 strip Q6HR 12/15/24 12:00 12/17/24 17:10 1 STRIP Insulin Human Regular Q6HR SC 12/15/24 12:00 12/17/24 17:24 2 UNITS Dextrose 50 ml UD PRN IV 12/15/24 07:00 Acetaminophen 650 mg Q6HP PRN GT 12/15/24 13:00 12/15/24 13:21 650 MG Fentanyl Citrate 250 ml @ 2.5 mls/hr Q24H IV 12/16/24 11:15 12/17/24 14:58 12.5 MLS/HR Hydralazine HCl 50 mg TID PO 12/16/24 14:00 12/17/24 05:31 50 MG Isosorbide Dinitrate 30 mg TID@06,12,18 PO 12/16/24 18:00 12/17/24 17:10 30 MG Enteral Nutritional Formula 1,000 ml 40ML/HR GT 12/16/24 12:30 12/16/24 23:37 1,000 ML Mupirocin 1 applic BID EACHNOSTRI 12/16/24 22:00 12/21/24 21:59 12/17/24 09:12 1 APPLIC Enoxaparin Sodium 150 mg Q12HR SC 12/16/24 22:00 12/17/24 09:11 150 MG Ipratropium [place] 0.5 mg Q6HR NEB 12/17/24 00:00 12/17/24 18:22 0.5 MG Albuterol 2.5 mg Q6HR NEB 12/17/24 00:00 12/17/24 18:22 2.5 MG Pantoprazole Sodium 40 mg DAILY IV 12/17/24 10:00 12/17/24 09:10 40 MG Meropenem 50 ml @ 17 mls/hr Q8HR IV 12/17/24 22:00 Bumetanide 1 mg BIDD IV 12/17/24 18:00 12/17/24 17:44 1 MG Examination Constitutional: Patient was morbidly obese, sedated and mechanically ventilated with RASS -3 Gen - no pallor, no icterus, no cyanosis, no clubbing, no LAD, trace edema. Skin - Patients skin is warm and dry. HEENT - normocephalic, atraumatic, moist mucous membranes. Neck - full ROM, no LAD, JVD could not be assessed. Pulmonary - B/L diminished breath sounds with inspiratory crackles, no wheezing cardiovascular - variable S1,S2 heard, no added sounds, no murmurs heard. GI - obese, soft abdomen, large area of dark discoloration below the umbilicus Neurological - currently mechanically ventilated, RASS -3, gag reflex present, pupils equal and reactive laboratory and microbiology Laboratory Tests 12/17/24 04:07 Test 12/17/24 04:07 Range/Units Serum Glucose 180 H 74-106 mg/dL Microbiology Date/Time Source Procedure Growth Status 12/16/24 13:20 Blood Blood Culture - Preliminary NO GROWTH AFTER 24 HOURS OF INCUBATION. Resulted 12/15/24 13:45 Urine - Gee Port Urine Culture - Final Escherichia coli - ESBL Complete 12/15/24 11:44 Nose MRSA Screen - Final Methicillin Resistant S.aureus Complete 12/15/24 02:21 Sputum Gram Stain - Final Resulted 12/15/24 02:21 Sputum Respiratory Culture - Preliminary Resulted Problem List/Assessment/Plan Problem List/Assessment/Plan Neurology Acute metabolic encephalopathy likely due to hypercapnia - on mechanical ventilation - morning ABG compensated with respiratory acidosis and metabolic alkalosis Respiratory Acute on chronic hypoxic/hypercarbic respiratory failure likely due to COPD/LAZARA/OHS On mechanical ventilation Sepsis likely due to pneumonia Pneumonia likely due to Gram +/- bacteria Pulmonary edema - on ventilator with a FiO2 35%, peep 5, respiratory rate 24, tidal volume 500 - IV meropenam - D/c bumex drip, on bumex 1mg bid Cardiovascular Acute on chronic heart failure with reduced ejection fraction Pulmonary edema likely due to above Hypertensive heart disease with heart failure Bradycardia with AV block, junctional rhythm, resolved H/o atrial fibrillation - ECG showed bradycardia with prolonged MO interval - on Bumex drip - hydralazine 50 mg t.i.d. and isosorbide dinitrate 30 mg t.i.d. - on enoxaparin therapeutic dose Nephrology VIVI on CKD likely prerenal hemodynamically mediated - FENa < 1% - BUN and creatinine improving - urine output over last 24 hours > 5L - D/c bumex drip, on bumex 1mg bid Endocrinology Insulin-dependent type 2 diabetes mellitus with hyperglycemia - on insulin sliding scale - on Glucerna at 40 mL/hour Infectious disease Sepsis likely due to pneumonia UTI with long-term indwelling Gee catheter, with ESBL E.coli MRSA nares positive - urine culture shows ESBL E.Coli - respiratory culture pending - blood cultures showed growth of staph epidermidis which could be a contaminant, repeated cultures - on IV Meropenam - mupirocin ointment Diet: Glucerna at 40 mL/hour via NG PUD prophylaxis: Protonix DVT prophylaxis: Enoxaparin Left IJV TLC inserted on 12/15 Gee's catheter inserted on 12/16 Goals of care discussed with the patient's niece for over 30 minutes. Full code Critical care time spent excluding procedures: 81 minutes Plan discussed with Dr. Peace Plan discussed with: Other (Niece, RN ( Antonieta )) My Orders My Orders Orders - JACKY GARCIA RESIDENT Procedure Category Date Status Time Ipratropium Medneb PHA 12/17/24 In Process (Atrovent Medneb) 00:00 Albuterol Medneb PHA 12/17/24 In Process (Ventolin Medneb) 00:00 Pantoprazole PHA 12/17/24 In Process (Protonix) 10:00 Chest Xray 1 View XY 12/17/24 Resulted 04:00 Abg W/ Co-Ox RT 12/17/24 Logged 04:00 Meropenem 1gm Ivpb PHA 12/17/24 In Process (Merrem 1gm/ Ns) 22:00 Dietary Evaluation Review Comments: 1. Pt is on fat energy support through Propofol of 860 kca, the TF needs to be a low fat, high proteiin formula. Suggest using Vital High Protein @45ml/hr, in 24 hr, pt will receive 1080 kca, 94 g protein, This formula will satisfy pt's protein neeeds at 79% and energy needs at 79% including the 860 kcal provided by Propofol running at 32.6ml/hr. Expected Outcomes/Goals: 1. Reassess protein and energy needs when pt is off vent, based on her true weight without fluid retention and possibably an improved kideny function, 2. [facility] to [facility] with updated protein and energy needs, when medically feasible providing that she passes a INTERRELATED SPECIAL EDUCATION TEACHER eval. Date of Service: Dec 17, 2024 Billing Provider: FRANNY PEACE MD Common Visit Codes: 85531-[id number] CARE 30-74 MIN, 88668-[id number] CARE-EACH +30MIN JACKY GARCIA RESIDENT Dec 17, 2024 18:47 FRANNY PEACE MD Dec 18, 2024 15:25
[2024-12-17] MEDS: MEROPENEM 1GM IVPB 50 ML IV SCH (22:01)
--- NOTE | 2024-12-17 23:42 | DVHPN2 ---
Progress Note - Dictate Date Seen: Dec 17, 2024 Medical Necessity Reason Pt with a Central, PICC or Fol: Yes The following are medically ne: Gee Catheter Subjective Patient was seen and evaluated in follow up in the ICU. Patient is intubated and sedated on ventilator. 35% FiO2. Patient is stable off vasopressors. Patient has increased urine output with Bumex drip. WBC 11, CO2 32, BUN 57, Bushing And Broach Operator 1.58. vital signs Vital Sign Date Time Temp Pulse Resp B/P (MAP) Pulse Ox O2 Delivery O2 Flow Rate FiO2 12/17/24 23:30 99.3 90 23 153/66 (95) 94 99.3 12/17/24 22:25 35 12/17/24 22:00 Mechanical Ventilator+ Total Intake and Output 12/16/24 12/16/24 12/17/24 15:00 23:00 07:00 Intake Total 912.12 ml 637.68 ml 743.42 ml Output Total 4300 ml 3300 ml Balance 912.12 ml -3662.32 ml -2556.58 ml medications Current Medications Medications Dose Ordered Sig/Julito Route Start Time Stop Time Status Last Admin Dose Admin Propofol 100 ml @ 4.08 mls/hr Q24H IV 12/15/24 05:15 12/17/24 23:26 36.72 MLS/HR Diagnostic Test (Pha) 1 strip Q6HR 12/15/24 12:00 12/17/24 23:22 1 STRIP Insulin Human Regular Q6HR SC 12/15/24 12:00 12/17/24 23:25 4 UNITS Dextrose 50 ml UD PRN IV 12/15/24 07:00 Acetaminophen 650 mg Q6HP PRN GT 12/15/24 13:00 12/15/24 13:21 650 MG Fentanyl Citrate 250 ml @ 2.5 mls/hr Q24H IV 12/16/24 11:15 12/17/24 14:58 12.5 MLS/HR Hydralazine HCl 50 mg TID PO 12/16/24 14:00 12/17/24 22:01 50 MG Isosorbide Dinitrate 30 mg TID@06,12,18 PO 12/16/24 18:00 12/17/24 17:10 30 MG Enteral Nutritional Formula 1,000 ml 40ML/HR GT 12/16/24 12:30 12/16/24 23:37 1,000 ML Mupirocin 1 applic BID EACHNOSTRI 12/16/24 22:00 12/21/24 21:59 12/17/24 22:18 1 APPLIC Enoxaparin Sodium 150 mg Q12HR SC 12/16/24 22:00 12/17/24 22:02 150 MG Ipratropium [place] 0.5 mg Q6HR NEB 12/17/24 00:00 12/17/24 18:22 0.5 MG Albuterol 2.5 mg Q6HR NEB 12/17/24 00:00 12/17/24 18:22 2.5 MG Pantoprazole Sodium 40 mg DAILY IV 12/17/24 10:00 12/17/24 09:10 40 MG Meropenem 50 ml @ 17 mls/hr Q8HR IV 12/17/24 22:00 12/17/24 22:01 17 MLS/HR Bumetanide 1 mg BIDD IV 12/17/24 18:00 12/17/24 17:44 1 MG objective GENERAL: Intubated on ventilator. Morbidly obese . EYES: PERRL, EOMI. Anicteric. HENT: Moist mucous membranes. LUNGS: Decreased all breath sounds. CARDIOVASCULAR: Regular rate and rhythm. ABDOMEN: Soft, nontender and nondistended. EXTREMITIES: No edema. SKIN: Warm, dry. laboratory and microbiology Laboratory Tests 12/17/24 04:07 Test 12/17/24 04:07 Range/Units Serum Glucose 180 H 74-106 mg/dL Problem List Accidental medication overdose. Acute encephalopathy. Acute respiratory failure. Respiratory acidosis. Right pleural effusion. Leukocytosis Chest pain. Bradycardia. CHF. CAD. Acute renal failure Hyperkalemia. UTI. DM type 2. Hypertension. Morbid obesity. History of CVA. Assessment/Plan Continued all current supportive medical care. IV antibiotics as ordered. Diuretics with Bumex. DVT prophylactics. IV Hydralazine for SBP >150. Morphine for pain management. Additional plan as per the hospital course. Critical care time of 45 minutes provided to include time spent evaluation of patient at bedside, when appropriate patient/family education for diagnosis, treatment plan, review of pertinent medical information and discussion of care with specialty providers and PCP. Mechanical ventilator parameters, treatment and adjustments have personally been reviewed by me and treatment plan by boiler out has also been reviewed. Dietary Evaluation Review Comments: 1. Pt is on fat energy support through Propofol of 860 kca, the TF needs to be a low fat, high proteiin formula. Suggest using Vital High Protein @45ml/hr, in 24 hr, pt will receive 1080 kca, 94 g protein, This formula will satisfy pt's protein neeeds at 79% and energy needs at 79% including the 860 kcal provided by Propofol running at 32.6ml/hr. Expected Outcomes/Goals: 1. Reassess protein and energy needs when pt is off vent, based on her true weight without fluid retention and possibably an improved kideny function, 2. Advance to [facility]-diet with updated protein and energy needs, when medically feasible providing that she passes a BLUEPRINT ASSEMBLER eval. Plan discussed with: FRANTZ Leyva MD Dec 17, 2024 23:42
[2024-12-18] VITALS (106 sets, daily range): BP systolic 98–183; BP diastolic 40–86; PULSE 67–96; RESP 15–30; TEMP 97.6–99.2; O2SAT 93–100
--- NOTE | 2024-12-18 00:37 | DVH ---
CT HEAD WITHOUT CONTRAST INDICATION: ALOC COMPARISON: None TECHNIQUE: CT of the head without intravenous contrast. RADIATION DOSE: CTDIvol: mGy, DLP: mGy*cm FINDINGS: There is no evidence of intracranial hemorrhage, infarct, extra-axial collection, mass effect, midli ne shift, herniation or hydrocephalus. The ventricles, sulci and cisterns are normal. The alfonso-white differentiation is intact. Mild mucosal thickening in ethmoid sinuses. Mastoid air cells and middle e ar cavities are clear. Possible bilateral proptosis. Soft tissues and osseous structures are unremark able. IMPRESSION: No intracranial abnormality identified.
[2024-12-18 03:52] LABS: Basophils # (auto) 0.1 10 ^3/uL (0-0.2); Eosinophils # (auto) 0.5 10 ^3/uL (0-0.8); Hemoglobin 9.3 g/dL (12.2-16.2); Lymphocytes # (auto) 0.7 10 ^3/uL (0.4-5.4); Lymphocytes % (auto) 7.4 % (10.0-50.0)
[2024-12-18 03:56] LABS: Basophils % (auto) 0.8 % (0.0-2.0); Eosinophils % (auto) 4.8 % (0.0-7.0); Mean Corpuscular Hemoglobin 24.4 pg (28.0-32.0); Mean Corpuscular Volume 78.9 fL (80.0-100.0); Monocytes # (auto) 1.1 10 ^3/uL (0-1.3); Monocytes % (auto) 10.8 % (0.0-12.0); Neutrophils # (auto) 7.6 10 ^3/uL (1.6-8.6); Neutrophils % (auto) 76.2 % (37.0-80.0); Nucleated Red Blood Cells % 0.1 %; Platelet Count (auto) 320 10^3/uL (140-450); Red Cell Distribution Width 18.9 % (11.8-14.3); White Blood Cell 9.9 10^3/uL (4.4-10.8)
[2024-12-18 04:00] LABS: Anion Gap 9 (5-15); Chloride 103 mmol/L (98-107)
[2024-12-18 04:01] LABS: Calcium 9.4 mg/dL (8.7-10.4)
[2024-12-18 04:06] LABS: BUN/Creatinine Ratio 36.3 (10.0-20.0); Magnesium 2.1 mg/dL (1.6-2.6)
[2024-12-18 04:43] LABS: Blood Urea Nitrogen 53 mg/dL (9-23); Carbon Dioxide 33 mmol/L (20-31); Glucose 180 mg/dL (74-106); Potassium 3.5 mmol/L (3.5-5.1); Sodium 145 mmol/L (136-145)
--- NOTE | 2024-12-18 05:13 | DVH ---
EXAM: XR Chest, 1 View CLINICAL INDICATION: B/l Pulmonary edema, on mechanical ventilation TECHNIQUE: Frontal view of the chest. COMPARISON: XY CHEST XRAY 1 VIEW on DOS: 12/17/24, XY CHEST PORTABLE on DOS: 12/16/24, XY CHEST XRAY 1 VIEW on DOS: 12/15/24, XY CHEST XRAY 1 VIEW on DOS: 12/14/24, XY CHEST XRAY 1 VIEW on DOS: 12/14/24 FINDINGS: LUNGS AND PLEURAL SPACES: See below. HEART: Cardiomegaly with moderate pulmonary congestion. MEDIASTINUM: Unremarkable. Normal mediastinal contour. BONES/JOINTS: Unremarkable. No acute fracture. TUBES, LINES AND DEVICES: The endotracheal tube (ETT) is in satisfactory position. Enteric tube ti p in the stomach. IMPRESSION: Cardiomegaly with moderate pulmonary congestion.
[2024-12-18] MEDS ORDERED: POTASSIUM CHL 20MEQ/100ML 100 ML IV ONE (05:15)
[2024-12-18] MEDS: POTASSIUM CHL 20MEQ/50ML 50 ML IV ONE ×2 (06:20→12:09)
[2024-12-18 07:28] LABS: Base Excess 5.3 mmol/L (-2.0-3.0)
[2024-12-18] MEDS ORDERED: POTASSIUM CHLORIDE 40 MEQ, LIDOCAINE 1% (LOCAL ANESTH.) 4 ML in SODIUM CHL 0.9% 250 ML IV ONE (09:00)
--- NOTE | 2024-12-18 10:42 | DVHINCON2 ---
Date of service: Dec 18, 2024 History of Present Illness 59yo F w/ hx of HTN, type II DM, CVA, HF, CAD c/b [place] s/p PCI who presented to hospital on 12/14 with AMS and bradycardia. Patient presented agitated. Initial EKG demonstrated bradycardia. Labs notable for K 6.3, Cr 3.04, lactate 2.8, BG 281. Had taken 1 extra tablet of PO medication at home. Patient was intubated in ED due to AHRF w/ respiratory distress and concern for inability to protect airway. Patient regarding hx of DM unclear which pharmacotherapy patient is maintained on. A1c 7.2%. Past Medical History Problems Medical Problems: (1) Accidental medication overdose Status: Acute (2) Acute renal failure Status: Acute (3) Altered mental status Status: Acute (4) Hyperkalemia Status: Acute (5) Lactic acidemia Status: Acute (6) Respiratory acidosis Status: Acute (7) Urinary tract infection Status: Acute Past Surgical History Past Surgical History Medical Problems: (1) Accidental medication overdose Status: Acute (2) Acute renal failure Status: Acute (3) Altered mental status Status: Acute (4) Hyperkalemia Status: Acute (5) Lactic acidemia Status: Acute (6) Respiratory acidosis Status: Acute (7) Urinary tract infection Status: Acute Family History: Patient reports no known family medical history. Allergies: Coded Allergies: NO KNOWN ALLERGIES (Unverified , 12/14/24) Home Meds Reported Medications Meclizine Hcl (Meclizine Hcl) 25 Mg Tab, 25 MG PO BIDP PRN for DIZZINESS for 30 Days, MG 12/16/24 Atorvastatin Calcium (Lipitor) 40 Mg Tab, 40 MG PO, TAB 12/16/24 Prednisone (Prednisone) 20 Mg Tab, 1 TAB PO DAILY 12/16/24 Rivaroxaban (Xarelto Tablet) 20 Mg Tb, 1 TAB PO DAILY 12/15/24 Losartan Potassium (Losartan Potassium) 50 Mg Tab, 1 TAB PO BID 12/15/24 Baclofen (Baclofen) 10 Mg Tab, 1 TAB PO BID 12/15/24 Furosemide (Furosemide) 80 Mg Tab, 1 TAB PO BID 12/15/24 Alprazolam (Alprazolam) 0.5 Mg Tab, 1 TAB PO QID PRN for ANXIETY 12/15/24 Metoprolol Succinate (Metoprolol Succinate Er) 100 Mg Tab, 1 TAB PO DAILY 12/15/24 Hydroxyzine Hcl (Hydroxyzine Hcl) 25 Mg Tab, 1 TAB PO BID 12/15/24 Amiodarone HCl (Amiodarone HCl) 200 Mg Tab, 1 TAB PO BID 12/15/24 Ondansetron HCl (Ondansetron Hydrochloride) 4 Mg Tab, 2 PO BID 12/15/24 Aspirin (Aspirin Low Dose) 81 Mg Tab, 1 TAB PO DAILY 12/15/24 Current Medications Current Medications Medications (Trade) Dose Ordered Sig/Julito Route PRN Reason Start Time Stop Time Status Last Admin Meropenem 50 ml @ 17 mls/hr Q8HR IV 12/17/24 22:00 12/18/24 06:01 Bumetanide (Bumex Injection) 1 mg BIDD IV 12/17/24 18:00 12/18/24 06:01 Review of Systems Negative except that which is stated in HPI Vital Signs Vital Signs Date Time Temp Pulse Resp B/P (MAP) Pulse Ox O2 Delivery O2 Flow Rate FiO2 12/18/24 09:59 82 22 137/54 (81) 97 50 12/18/24 06:00 Mechanical Ventilator+ 12/18/24 04:00 98.6 98.6 Physical Exam Gen - intubated, sedated CV - RRR, no m/r/g Resp - CTAB Ext - no edema Labs/Diagnostic Data Labs Test 12/18/24 07:12 12/18/24 06:04 12/18/24 03:30 12/16/24 19:25 Range/Units Blood Gas Specimen Type Arterial Blood Gas Sample Site Right radial Blood Gas Patient Temperature 37.0 Arterial Blood Date Drawn [id number] Arterial Blood pH 7.435 7.350-7.450 Arterial Blood Partial Pressure CO2 46.0 H 32.0-45.0 mmHg Arterial Blood Partial Pressure O2 73.6 L 83.0-108.0 mmHg Arterial Blood HCO3 30.2 H 21.0-28.0 mmol/L Arterial Blood Oxygen Saturation 93.8 L 94.0-98.0 % Arterial Blood Base Excess 5.3 H -2.0-3.0 mmol/L Arterial Blood Oxyhemoglobin 93.3 L 94.0-98.0 % Arterial Blood Carboxyhemoglobin 0.4 L 0.5-1.5 % Arterial Blood Methemoglobin 0.1 0.0-1.5 % Alverto Test Modified Blood Gas Total Hemoglobin 10.50 L 12.0-16.0 g/dL Blood Gas Set Respiration Rate 22.0 Blood Gas Modality Vent - ac FiO2 % 35.0 Blood Gas Tidal Volume 450.0 Blood Gas PEEP or CPAP 5.0 POC Glucose 164 H 70-106 mg/dl White Blood Count 9.9 4.4-10.8 10^3/uL Red Blood Count 3.80 L 4.0-5.20 10^6/uL Hemoglobin 9.3 L 12.2-16.2 g/dL Hematocrit 30.0 L 36.0-46.0 % Mean Corpuscular Volume 78.9 L 80.0-100.0 fL Mean Corpuscular Hemoglobin 24.4 L 28.0-32.0 pg Mean Corpuscular Hemoglobin Concent 31.0 L 32.0-36.0 g/dL Red Cell Distribution Width 18.9 H 11.8-14.3 % Platelet Count 320 140-450 10^3/uL Mean Platelet Volume 8.1 6.9-10.8 fL Neutrophils (%) (Auto) 76.2 37.0-80.0 % Lymphocytes (%) (Auto) 7.4 L 10.0-50.0 % Monocytes (%) (Auto) 10.8 0.0-12.0 % Eosinophils (%) (Auto) 4.8 0.0-7.0 % Basophils (%) (Auto) 0.8 0.0-2.0 % Neutrophils # (Auto) 7.6 1.6-8.6 10 ^3/uL Lymphocytes # (Auto) 0.7 0.4-5.4 10 ^3/uL Monocytes # (Auto) 1.1 0-1.3 10 ^3/uL Eosinophils # (Auto) 0.5 0-0.8 10 ^3/uL Basophils # (Auto) 0.1 0-0.2 10 ^3/uL Nucleated Red Blood Cells 0.1 % Sodium Level 145 136-145 mmol/L Potassium Level 3.5 3.5-5.1 mmol/L Chloride Level 103 98-107 mmol/L Carbon Dioxide Level 33 H 20-31 mmol/L Anion Gap 9 5-15 Blood Urea Nitrogen 53 H 9-23 mg/dL Creatinine 1.46 H 0.550-1.02 mg/dL Glomerular Filtration Rate Calc 41 >90 mL/min BUN/Creatinine Ratio 36.3 H 10.0-20.0 Serum Glucose 180 H 74-106 mg/dL Calcium Level 9.4 8.7-10.4 mg/dL Magnesium Level 2.1 1.6-2.6 mg/dL Blood Gas Spontaneous Rate 26 Blood Gas Spontaneous Tidal Volume 436 Blood Gas Inspiratory Pressure 23.0 Bl Gas Inspiratory/Expiratory Ratio 1:1.4 Test 12/16/24 03:15 12/15/24 14:00 12/15/24 13:45 12/15/24 07:10 Range/Units Total Bilirubin 0.3 0.2-1.0 mg/dL Aspartate Amino Transferase (AST) 18 13-40 U/L Alanine Aminotransferase (ALT) 31 7-40 U/L Alkaline Phosphatase 74 46-116 U/L Total Protein 6.8 5.7-8.2 g/dL Albumin 4.0 3.2-4.8 g/dL Hemoglobin A1c 7.2 H <5.7 % A1C Phosphorus Level 4.7 2.4-5.1 mg/dL Vitamin D 25-Hydroxy 32.0 30.0-100 ng/mL Parathyroid Hormone (Intact) 232.6 H 18.4-80.1 pg/mL Urine Color Light-yellow Yellow Urine Clarity Turbid H Clear Urine pH 6.5 5.0-9.0 Urine Specific [place] 1.011 1.001-1.035 Urine Protein Trace H Negative Urine Ketones Negative Negative Urine Blood Trace H Negative /uL Urine Nitrite Negative Negative Urine Bilirubin Negative Negative Urine Urobilinogen Normal Negative mg/dL Urine Leukocyte Esterase 3+ Negative /uL Urine RBC 4 0 - 4 /hpf Urine Microscopic WBC 39 H 0-5 /HPF Urine Squamous Epithelial Cells Few <5 /hpf Urine Bacteria Many H None Seen /hpf Urine Creatinine 51.30 30.0-125.0 mg/dL Urine Protein/Creatinine Ratio 0.67 Urine Sodium 16 L 40-220 mmol/L Urine Glucose Normal Normal mg/dL Urine Total Protein 34.5 H 1-14 mg/dL Triglycerides Level 95 < 150 mg/dL Cholesterol Level 129 < 200 mg/dL LDL Cholesterol 47 < 100 mg/dL HDL Cholesterol 60 H 40-59 mg/dL Thyroid Stimulating Hormone (TSH) 1.50 0.55-4.78 uIU/mL Test 12/15/24 00:52 12/14/24 23:23 12/14/24 23:16 12/14/24 21:21 Range/Units Blood Gas Liter Flow 60.00 Blood Gas Critical Value Read Back Yes Blood Gas Notified Whom kisha Jacobson md Blood Gas Notified Time [id number] Blood Gas Notified By gonzalez Maurer rrt Prothrombin Time 12.8 H 9.3-11.8 sec Prothrombin Time INR 1.23 H 0.9-1.15 Troponin I High Sensitivity 12 </=34 ng/L Urine WBC Clumps Present None Seen /hpf Urine Calcium Oxalate Crystals Few None Seen Urine Hyaline Casts Many 0 - 2 /lpf Urine Mucus Few None Seen Urine Opiates Screen Pos NEGATIVE Urine Fentanyl Screen Pos NEGATIVE Urine Barbiturates Screen Neg NEGATIVE Urine Phencyclidine Screen Neg NEGATIVE Urine Amphetamines Screen Neg NEGATIVE Urine Benzodiazepines Screen Pos NEGATIVE Urine Cocaine Screen Neg NEGATIVE Urine Cannabinoids Screen Neg NEGATIVE Lactic Acid Level 0.8 0.4-2.0 mmol/L Test 12/14/24 19:23 Range/Units Creatine Kinase 84 34-145 U/L B-Type Natriuretic Peptide 298.73 0-100 pg/mL Lipase 39 12-53 U/L Salicylates Level < 3.0 -30 mg/dL Acetaminophen Level < 2.0 L 10.0-20.0 UG/ML Microbiology Date/Time Source Procedure Growth Status 12/16/24 13:20 Blood Blood Culture - Preliminary NO GROWTH AFTER 24 HOURS OF INCUBATION. Resulted 12/15/24 13:45 Urine - Gee Port Urine Culture - Final Escherichia coli - ESBL Complete 12/15/24 11:44 Nose MRSA Screen - Final Methicillin Resistant S.aureus Complete 12/15/24 02:21 Sputum Gram Stain - Final Resulted 12/15/24 02:21 Sputum Respiratory Culture - Preliminary Resulted Assessment # Acute toxic metabolic encephalopathy # AHRF s/p intubation # Severe bradycardia # Acute renal failure # Controlled type II DM with hyperglycemia # Coronary artery disease Well controlled dysglycemia at baseline with maintain conservative correctional insulin pharmacotherapy at baseline. Will schedule basal bolus regimen once increasing nutrition. - Continue insulin regular q6h SSI - POC BG monitoring q6h - Hypoglycemia protocol Plan discussed with: Patient EBONIE TOLEDO MD Dec 18, 2024 10:42
--- NOTE | 2024-12-18 16:21 | DVHPN2 ---
Progress Note Date Seen: Dec 18, 2024 Medical Necessity Reason Pt with a Central, PICC or Fol: Yes The following are medically ne: Gee Catheter Subjective Patient reports: Feels better Review of Systems: RESPIRATORY:Abnormal Objective vital signs Vital Sign Date Time Temp Pulse Resp B/P (MAP) Pulse Ox O2 Delivery O2 Flow Rate FiO2 12/18/24 15:45 75 22 118/44 (68) 98 12/18/24 14:00 50 12/18/24 14:00 Mechanical Ventilator+ 12/18/24 12:00 98.2 98.2 Total Intake and Output 12/17/24 12/17/24 12/18/24 15:00 23:00 07:00 Intake Total 438.38 ml 529.98 ml 558.44 ml Output Total 1200 ml 1750 ml Balance 438.38 ml -670.02 ml -1191.56 ml medications Current Medications Medications Dose Ordered Sig/Julito Route Start Time Stop Time Status Last Admin Dose Admin Propofol 100 ml @ 4.08 mls/hr Q24H IV 12/15/24 05:15 12/18/24 13:42 24.48 MLS/HR Diagnostic Test (Pha) 1 strip Q6HR 12/15/24 12:00 12/18/24 11:41 1 STRIP Insulin Human Regular Q6HR SC 12/15/24 12:00 12/18/24 11:44 3 UNITS Dextrose 50 ml UD PRN IV 12/15/24 07:00 Acetaminophen 650 mg Q6HP PRN GT 12/15/24 13:00 12/15/24 13:21 650 MG Fentanyl Citrate 250 ml @ 2.5 mls/hr Q24H IV 12/16/24 11:15 12/18/24 08:00 10 MLS/HR Hydralazine HCl 50 mg TID PO 12/16/24 14:00 12/18/24 14:03 50 MG Isosorbide Dinitrate 30 mg TID@06,12,18 PO 12/16/24 18:00 12/18/24 12:14 30 MG Enteral Nutritional Formula 1,000 ml 40ML/HR GT 12/16/24 12:30 12/16/24 23:37 1,000 ML Mupirocin 1 applic BID EACHNOSTRI 12/16/24 22:00 12/21/24 21:59 12/18/24 09:40 1 APPLIC Enoxaparin Sodium 150 mg Q12HR SC 12/16/24 22:00 12/18/24 09:40 150 MG Ipratropium [place] 0.5 mg Q6HR NEB 12/17/24 00:00 12/18/24 13:00 0.5 MG Albuterol 2.5 mg Q6HR NEB 12/17/24 00:00 12/18/24 13:00 2.5 MG Pantoprazole Sodium 40 mg DAILY IV 12/17/24 10:00 12/18/24 09:40 40 MG Meropenem 50 ml @ 17 mls/hr Q8HR IV 12/17/24 22:00 12/18/24 14:03 17 MLS/HR Bumetanide 1 mg BIDD IV 12/17/24 18:00 12/18/24 06:01 1 MG Examination: GENERAL:Abnormal, LUNGS:Abnormal, CVS:Abnormal, SKIN:Normal laboratory and microbiology Laboratory Tests 12/18/24 03:30 Test 12/18/24 03:30 Range/Units Serum Glucose 180 H 74-106 mg/dL Microbiology Date/Time Source Procedure Growth Status 12/16/24 13:20 Blood Blood Culture - Preliminary NO GROWTH AFTER 48 HOURS OF INCUBATION. Resulted 12/15/24 13:45 Urine - Gee Port Urine Culture - Final Escherichia coli - ESBL Complete 12/15/24 11:44 Nose MRSA Screen - Final Methicillin Resistant S.aureus Complete 12/15/24 02:21 Sputum Gram Stain - Final Resulted 12/15/24 02:21 Sputum Respiratory Culture - Preliminary Resulted Problem List/Assessment/Plan Problem List/Assessment/Plan Admitted for acute respiratory distress in the setting of possible medication overdose Acute kidney injury in setting of severe Hypertension Baseline renal function is unknown Hypertensive emergency fluid overload-> diastolic HF acute respiratory failure morbid obesity History of stroke still intubated Bumex IV off drip BP improved now on po Strict Is&Os Renal function is improving with fluid removal monitor electrolytes closely Plan discussed with: Other My Orders My Orders Orders - DIXIE LUONG MD Procedure Category Date Status Time Basic Metabolic Panel LAB 12/19/24 Verified 04:00 Dietary Evaluation Review Comments: 1. Pt is on fat energy support through Propofol of 860 kca, the TF needs to be a low fat, high proteiin formula. Suggest using Vital High Protein @45ml/hr, in 24 hr, pt will receive 1080 kca, 94 g protein, This formula will satisfy pt's protein neeeds at 79% and energy needs at 79% including the 860 kcal provided by Propofol running at 32.6ml/hr. Expected Outcomes/Goals: 1. Reassess protein and energy needs when pt is off vent, based on her true weight without fluid retention and possibably an improved kideny function, 2. Advance to CCHO-diet with updated protein and energy needs, when medically feasible providing that she passes a MEDICAL BILL PROCESSOR eval. DIXIE LUONG MD Dec 18, 2024 16:21
[2024-12-18] MEDS: BUMETANIDE 1mg/4ml VIAL (0.25mg/ml) IV SCH (17:42)
--- NOTE | 2024-12-18 19:36 | DVHPNRES ---
Progress Note Date Seen: Dec 18, 2024 Resident Creating Document: JACKY GARCIA RESIDENT Medical Necessity Reason Pt with a Central, PICC or Fol: Yes The following are medically ne: Gee Catheter Subjective Review of Systems Patient is a 59-year-old female with a past medical history of COPD, insulin dependent type 2 diabetes mellitus, congestive heart failure, coronary artery disease was brought to the hospital via EMS with altered mental status and bradycardia. As per patient's niece who is her take her server administrator, when she went to her room to give in the afternoon, she found with the patient to be confused and she checked her vitals reported low blood pressure and heart rate in 30s which she suspected might be because she took her blood pressure medications twice, following which she called EMS and the patient was brought to the hospital. She reports patient has been in and out of the hospital since the past 6 months for complains of shortness of breath. The last time she was hospitalized was in [facility] about 2.5-3 months ago following which she was sent to rehab facility and [facility] from where she got discharged about a week ago to home. Patient has been bed-bound since the last 8 years. At home patient has an oxygen concentrator and uses oxygen at 8-10 L per minute. Patient came in with altered mental status and ABG showed respiratory acidosis following which she was intubated and put on mechanical ventilation. Past medical history: COPD with 8-10 L oxygen per minute at home, insulin dependent type 2 diabetes mellitus, congestive heart failure, coronary artery disease, atrial fibrillation Past surgical history: Denies Social history: Patient is bed-bound, her niece as the server administrator, denies smoking, alcohol, any other drug use Home medications: Amiodarone 200 mg b.i.d., aspirin 81 mg daily, Jardiance 25 mg daily, fluticasone inhaler, Lasix 80 mg, metoprolol succinate 100 mg daily, losartan 100 mg daily, Eliquis 5 mg b.i.d. Review of systems Patient seen and examined at the bedside Patient is sedated and on mechanical ventilation overnight was tried to be weaned off sedation for CPAP trial in the morning but the she desaturated and was hypertensive following which she had to be put back on sedation Objective vital signs Vital Sign Date Time Temp Pulse Resp B/P (MAP) Pulse Ox O2 Delivery O2 Flow Rate FiO2 4/16/25 19:15 81 22 138/51 (80) 95 12/18/24 18:47 40 12/18/24 18:00 Mechanical Ventilator+ 12/18/24 17:45 99.2 99.2 Total Intake and Output 12/17/24 12/17/24 12/18/24 15:00 23:00 07:00 Intake Total 438.38 ml 529.98 ml 558.44 ml Output Total 1200 ml 1750 ml Balance 438.38 ml -670.02 ml -1191.56 ml medications Current Medications Medications Dose Ordered Sig/Julito Route Start Time Stop Time Status Last Admin Dose Admin Propofol 100 ml @ 4.08 mls/hr Q24H IV 12/15/24 05:15 12/18/24 17:43 24.48 MLS/HR Diagnostic Test (Pha) 1 strip Q6HR 12/15/24 12:00 12/18/24 17:41 1 STRIP Insulin Human Regular Q6HR SC 12/15/24 12:00 12/18/24 17:46 2 UNITS Dextrose 50 ml UD PRN IV 12/15/24 07:00 Acetaminophen 650 mg Q6HP PRN GT 12/15/24 13:00 12/15/24 13:21 650 MG Fentanyl Citrate 250 ml @ 2.5 mls/hr Q24H IV 12/16/24 11:15 12/18/24 08:00 10 MLS/HR Enteral Nutritional Formula 1,000 ml 40ML/HR GT 12/16/24 12:30 12/16/24 23:37 1,000 ML Mupirocin 1 applic BID EACHNOSTRI 12/16/24 22:00 12/21/24 21:59 12/18/24 09:40 1 APPLIC Enoxaparin Sodium 150 mg Q12HR SC 12/16/24 22:00 12/18/24 09:40 150 MG Ipratropium [place] 0.5 mg Q6HR NEB 12/17/24 00:00 12/18/24 18:47 0.5 MG Albuterol 2.5 mg Q6HR NEB 12/17/24 00:00 12/18/24 18:47 2.5 MG Pantoprazole Sodium 40 mg DAILY IV 12/17/24 10:00 12/18/24 09:40 40 MG Meropenem 50 ml @ 17 mls/hr Q8HR IV 12/17/24 22:00 12/18/24 14:03 17 MLS/HR Bumetanide 2 mg BIDD IV 12/18/24 18:00 12/18/24 17:42 2 MG Hydralazine HCl 50 mg BID PO 12/18/24 22:00 Isosorbide Dinitrate 30 mg BID PO 12/18/24 22:00 Norepinephrine Bitartrate 250 ml @ 3.75 mls/hr Q24H IV 12/18/24 19:30 UNV Examination Constitutional: Patient was morbidly obese, sedated and mechanically ventilated with RASS -3 Gen - no pallor, no icterus, no cyanosis, no clubbing, no LAD, trace edema. Skin - Patients skin is warm and dry. HEENT - normocephalic, atraumatic, moist mucous membranes. Neck - full ROM, no LAD, JVD could not be assessed. Pulmonary - B/L diminished breath sounds with inspiratory crackles, no wheezing cardiovascular - variable S1,S2 heard, no added sounds, no murmurs heard. GI - obese, soft abdomen, large area of dark discoloration below the umbilicus Neurological - currently mechanically ventilated, RASS -3, gag reflex present, pupils equal and reactive laboratory and microbiology Laboratory Tests 12/18/24 03:30 Test 12/18/24 03:30 Range/Units Serum Glucose 180 H 74-106 mg/dL Microbiology Date/Time Source Procedure Growth Status 12/16/24 13:20 Blood Blood Culture - Preliminary NO GROWTH AFTER 48 HOURS OF INCUBATION. Resulted 12/15/24 13:45 Urine - Gee Port Urine Culture - Final Escherichia coli - ESBL Complete 12/15/24 11:44 Nose MRSA Screen - Final Methicillin Resistant S.aureus Complete 12/15/24 02:21 Sputum Gram Stain - Final Resulted 12/15/24 02:21 Sputum Respiratory Culture - Preliminary Resulted Problem List/Assessment/Plan Problem List/Assessment/Plan Neurology Acute metabolic encephalopathy likely due to hypercapnia - on mechanical ventilation - morning ABG compensated with respiratory acidosis and metabolic alkalosis Respiratory Acute on chronic hypoxic/hypercarbic respiratory failure likely due to COPD/LAZARA/OHS On mechanical ventilation Sepsis likely due to pneumonia Pneumonia likely due to Gram +/- bacteria Pulmonary edema - on ventilator with a FiO2 35%, peep 5, respiratory rate 24, tidal volume 500 - IV meropenam - bumex 2mg bid Cardiovascular Acute on chronic heart failure with reduced ejection fraction Pulmonary edema likely due to above Hypertensive heart disease with heart failure Bradycardia with AV block, junctional rhythm, resolved H/o atrial fibrillation - ECG showed bradycardia with prolonged WA interval - on Bumex - hydralazine 50 mg t.i.d. and isosorbide dinitrate 30 mg t.i.d. - on enoxaparin therapeutic dose Nephrology VIVI on CKD likely prerenal due to VMN - FENa < 1% - BUN and creatinine improving - urine output over last 24 hours > 5L - bumex 2mg bid Endocrinology Insulin-dependent type 2 diabetes mellitus with hyperglycemia - on insulin sliding scale - on Glucerna at 40 mL/hour Infectious disease Sepsis likely due to pneumonia/UTI UTI with long-term indwelling Gee catheter, with ESBL E.coli present on admission MRSA nares positive - urine culture shows ESBL E.Coli - respiratory culture pending - blood cultures showed growth of staph epidermidis which could be a contaminant, repeated cultures - on IV Meropenam - mupirocin ointment Diet: Glucerna at 40 mL/hour via NG PUD prophylaxis: Protonix DVT prophylaxis: Enoxaparin Left IJV TLC inserted on 12/15 Gee's catheter inserted on 12/16 Goals of care discussed with the patient's niece for over 30 minutes. Full code Critical care time spent excluding procedures: 63 minutes Plan discussed with Dr. Peace Plan discussed with: Other (niece, RN ( Genie )) My Orders My Orders Orders - JACKY GARCIA RESIDENT Procedure Category Date Status Time Chest Xray 1 View XY 12/18/24 Resulted 04:00 Abg W/ Co-Ox RT 12/18/24 Logged 04:00 Bumetanide Injection PHA 12/18/24 In Process (Bumex Injection) 18:00 Hydralazine Hcl PHA 12/18/24 In Process Tablet (Apresoline 22:00 Isosorbide Dinitrate PHA 12/18/24 In Process Tablet (Isordil Tab 22:00 Norepinephrine 8 PHA 12/18/24 Logged Mg/250ml Kit 19:30 Dietary Evaluation Review Comments: 1. Pt is on fat energy support through Propofol of 860 kca, the TF needs to be a low fat, high proteiin formula. Suggest using Vital High Protein @45ml/hr, in 24 hr, pt will receive 1080 kca, 94 g protein, This formula will satisfy pt's protein neeeds at 79% and energy needs at 79% including the 860 kcal provided by Propofol running at 32.6ml/hr. Expected Outcomes/Goals: 1. Reassess protein and energy needs when pt is off vent, based on her true weight without fluid retention and possibably an improved kideny function, 2. [facility] with updated protein and energy needs, when medically feasible providing that she passes a RENTAL REPRESENTATIVE eval. Date of Service: Dec 18, 2024 Billing Provider: FRANNY PEACE MD Common Visit Codes: 96966-SCNUOUGC CARE 30-74 MIN JACKY GARCIA RESIDENT Dec 18, 2024 19:36 FRANNY PEACE MD Dec 19, 2024 11:00
[2024-12-18] MEDS: NOREPINEPHRINE 8 MG/250ML KIT 250 ML IV SCH (20:54)
[2024-12-18] MEDS ORDERED: ISOSORBIDE DINITRATE 10 MG TAB PO SCH (22:00)
[2024-12-18] MEDS ORDERED: hydrALAZINE HCL 25 MG TAB PO SCH (22:00)
[2024-12-18] MEDS: hydrALAZINE HCL 25 MG TAB PO SCH (22:45)
--- NOTE | 2024-12-18 23:31 | DVHPN2 ---
Progress Note - Dictate Date Seen: Dec 18, 2024 Medical Necessity Reason Pt with a Central, PICC or Fol: Yes The following are medically ne: Gee Catheter Subjective Patient was seen and evaluated in follow up in the ICU. Patient is intubated and sedated on ventilator. FiO2 was increased to 50%. Patient's sister Aurelia is at bedside. HGB 9.3, HCT 30, CO2 33, BUN 53, LABOR ECONOMICS TEACHER 1.46. Chest x-ray shows cardiomegaly with moderate pulmonary congestion. vital signs Vital Sign Date Time Temp Pulse Resp B/P (MAP) Pulse Ox O2 Delivery O2 Flow Rate FiO2 12/18/24 13:42 104/44 12/18/24 13:16 77 22 98 12/18/24 12:00 98.2 98.2 12/18/24 12:00 50 12/18/24 12:00 Mechanical Ventilator+ Total Intake and Output 12/17/24 12/17/24 12/18/24 15:00 23:00 07:00 Intake Total 438.38 ml 529.98 ml 558.44 ml Output Total 1200 ml 1750 ml Balance 438.38 ml -670.02 ml -1191.56 ml medications Current Medications Medications Dose Ordered Sig/Julito Route Start Time Stop Time Status Last Admin Dose Admin Propofol 100 ml @ 4.08 mls/hr Q24H IV 12/15/24 05:15 12/18/24 13:42 24.48 MLS/HR Diagnostic Test (Pha) 1 strip Q6HR 12/15/24 12:00 12/18/24 11:41 1 STRIP Insulin Human Regular Q6HR SC 12/15/24 12:00 12/18/24 11:44 3 UNITS Dextrose 50 ml UD PRN IV 12/15/24 07:00 Acetaminophen 650 mg Q6HP PRN GT 12/15/24 13:00 12/15/24 13:21 650 MG Fentanyl Citrate 250 ml @ 2.5 mls/hr Q24H IV 12/16/24 11:15 12/18/24 08:00 10 MLS/HR Hydralazine HCl 50 mg TID PO 12/16/24 14:00 12/18/24 06:52 50 MG Isosorbide Dinitrate 30 mg TID@06,12,18 PO 12/16/24 18:00 12/18/24 12:14 30 MG Enteral Nutritional Formula 1,000 ml 40ML/HR GT 12/16/24 12:30 12/16/24 23:37 1,000 ML Mupirocin 1 applic BID EACHNOSTRI 12/16/24 22:00 12/21/24 21:59 12/18/24 09:40 1 APPLIC Enoxaparin Sodium 150 mg Q12HR SC 12/16/24 22:00 12/18/24 09:40 150 MG Ipratropium [place] 0.5 mg Q6HR NEB 12/17/24 00:00 12/18/24 13:00 0.5 MG Albuterol 2.5 mg Q6HR NEB 12/17/24 00:00 12/18/24 13:00 2.5 MG Pantoprazole Sodium 40 mg DAILY IV 12/17/24 10:00 12/18/24 09:40 40 MG Meropenem 50 ml @ 17 mls/hr Q8HR IV 12/17/24 22:00 12/18/24 06:01 17 MLS/HR Bumetanide 1 mg BIDD IV 12/17/24 18:00 12/18/24 06:01 1 MG objective GENERAL: Intubated on ventilator. Morbidly obese . EYES: PERRL, EOMI. Anicteric. HENT: Moist mucous membranes. LUNGS: Decreased all breath sounds. CARDIOVASCULAR: Regular rate and rhythm. ABDOMEN: Soft, nontender and nondistended. EXTREMITIES: No edema. SKIN: Warm, dry. laboratory and microbiology Laboratory Tests 12/18/24 03:30 Test 12/18/24 03:30 Range/Units Serum Glucose 180 H 74-106 mg/dL Problem List Accidental medication overdose. Acute encephalopathy. Acute respiratory failure. Respiratory acidosis. Right pleural effusion. Leukocytosis Chest pain. Bradycardia. CHF. CAD. Acute renal failure Hyperkalemia. UTI. DM type 2. Hypertension. Morbid obesity. History of CVA. Assessment/Plan Continued all current supportive medical care. IV antibiotics as ordered. Diuretics with Bumex. DVT prophylactics. IV Hydralazine for SBP >150. Morphine for pain management. Additional plan as per the hospital course. Critical care time of 45 minutes provided to include time spent evaluation of patient at bedside, when appropriate patient/family education for diagnosis, treatment plan, review of pertinent medical information and discussion of care with specialty providers and PCP. Mechanical ventilator parameters, treatment and adjustments have personally been reviewed by me and treatment plan by beauty director has also been reviewed. Dietary Evaluation Review Comments: 1. Pt is on fat energy support through Propofol of 860 kca, the TF needs to be a low fat, high proteiin formula. Suggest using Vital High Protein @45ml/hr, in 24 hr, pt will receive 1080 kca, 94 g protein, This formula will satisfy pt's protein neeeds at 79% and energy needs at 79% including the 860 kcal provided by Propofol running at 32.6ml/hr. Expected Outcomes/Goals: 1. Reassess protein and energy needs when pt is off vent, based on her true weight without fluid retention and possibably an improved kideny function, 2. Advance to CCHO-diet with updated protein and energy needs, when medically feasible providing that she passes a COMPENSATION SPECIALIST eval. Plan discussed with: Other FRANTZ HOSKINS MD Dec 18, 2024 13:55
[2024-12-18] MEDS: ISOSORBIDE DINITRATE 10 MG TAB PO SCH (23:39)
[2024-12-19] VITALS (102 sets, daily range): BP systolic 92–181; BP diastolic 33–89; PULSE 59–92; RESP 10–25; TEMP 97–99.6; O2SAT 88–99
[2024-12-19 04:19] LABS: Eosinophils # (auto) 0.9 10 ^3/uL (0-0.8); Hematocrit 31.5 % (36.0-46.0)
[2024-12-19 04:24] LABS: Anion Gap 7 (5-15); Chloride 106 mmol/L (98-107)
[2024-12-19 04:25] LABS: Basophils # (auto) 0 10 ^3/uL (0-0.2); Basophils % (auto) 0.3 % (0.0-2.0); Calcium 9.7 mg/dL (8.7-10.4); Hemoglobin 9.5 g/dL (12.2-16.2); Lymphocytes # (auto) 0.8 10 ^3/uL (0.4-5.4); Lymphocytes % (auto) 8.4 % (10.0-50.0); Mean Corpuscular Hemoglobin 24.1 pg (28.0-32.0); Mean Corpuscular Hgb Conc. 30.3 g/dL (32.0-36.0); Mean Corpuscular Volume 79.4 fL (80.0-100.0); Monocytes # (auto) 0.9 10 ^3/uL (0-1.3); Monocytes % (auto) 8.9 % (0.0-12.0); Neutrophils # (auto) 7.4 10 ^3/uL (1.6-8.6); Neutrophils % (auto) 73.4 % (37.0-80.0); Nucleated Red Blood Cells % 0.1 %; Platelet Count (auto) 336 10^3/uL (140-450); Red Blood Cells 3.97 10^6/uL (4.0-5.20); Red Cell Distribution Width 18.6 % (11.8-14.3)
[2024-12-19 04:30] LABS: BUN/Creatinine Ratio 31.5 (10.0-20.0)
[2024-12-19 04:58] LABS: Blood Urea Nitrogen 39 mg/dL (9-23); Carbon Dioxide 34 mmol/L (20-31); Glucose 149 mg/dL (74-106); Potassium 3.4 mmol/L (3.5-5.1); Sodium 147 mmol/L (136-145)
--- NOTE | 2024-12-19 06:04 | DVH ---
CHEST RADIOGRAPH Indication: Pulmonary congestion, on ventilator Technique: Single frontal view of the chest was obtained Comparison: XY CHEST XRAY 1 VIEW on DOS: 12/18/24 FINDINGS: Lines and Tubes: The endotracheal tube terminates 2.9 cm above the consuelo. Left central venous josiane ter terminates in the superior vena cava. The enteric tube courses below the left hemidiaphragm and t he tip extends outside the field of view. Lungs: There is pulmonary congestion, stable. Pleura: No effusion. No pneumothorax. Cardiomediastinal contours: Cardiomegaly. Bones: No acute osseous abnormality. IMPRESSION: 1. Stable position of the support lines and tubes. 2. Pulmonary congestion similar to prior study.
[2024-12-19] MEDS: POTASSIUM CHL 20MEQ/50ML 50 ML IV ONE (06:06)
[2024-12-19 08:55] LABS: Base Excess 7.8 mmol/L (-2.0-3.0)
--- NOTE | 2024-12-19 09:22 | DVHPN2 ---
Progress Note - Dictate Date Seen: Dec 19, 2024 Medical Necessity Reason Pt with a Central, PICC or Fol: Yes The following are medically ne: Gee Catheter Subjective TF ongoing. BG values stable and well controlled requiring minimal correctional regular insulin. vital signs Vital Sign Date Time Temp Pulse Resp B/P (MAP) Pulse Ox O2 Delivery O2 Flow Rate FiO2 12/19/24 09:15 72 22 116/54 (74) 94 12/19/24 08:36 35 12/19/24 08:00 Mechanical Ventilator+ 12/19/24 08:00 98.2 98.2 Total Intake and Output 12/18/24 12/18/24 12/19/24 15:00 23:00 07:00 Intake Total 401.34 ml 652.48 ml 729.44 ml Output Total 1450 ml 1250 ml Balance 401.34 ml -797.52 ml -520.56 ml medications Current Medications Medications Dose Ordered Sig/Julito Route Start Time Stop Time Status Last Admin Dose Admin Propofol 100 ml @ 4.08 mls/hr Q24H IV 12/15/24 05:15 12/19/24 07:18 40.8 MLS/HR Diagnostic Test (Pha) 1 strip Q6HR 12/15/24 12:00 12/19/24 05:31 1 STRIP Insulin Human Regular Q6HR SC 12/15/24 12:00 12/19/24 05:36 3 UNITS Dextrose 50 ml UD PRN IV 12/15/24 07:00 Acetaminophen 650 mg Q6HP PRN GT 12/15/24 13:00 12/15/24 13:21 650 MG Fentanyl Citrate 250 ml @ 2.5 mls/hr Q24H IV 12/16/24 11:15 12/19/24 02:05 15 MLS/HR Enteral Nutritional Formula 1,000 ml 40ML/HR GT 12/16/24 12:30 12/16/24 23:37 1,000 ML Mupirocin 1 applic BID EACHNOSTRI 12/16/24 22:00 12/21/24 21:59 12/18/24 21:52 1 APPLIC Enoxaparin Sodium 150 mg Q12HR SC 12/16/24 22:00 12/18/24 21:51 150 MG Ipratropium [place] 0.5 mg Q6HR NEB 12/17/24 00:00 12/19/24 06:17 0.5 MG Albuterol 2.5 mg Q6HR NEB 12/17/24 00:00 12/19/24 06:17 2.5 MG Pantoprazole Sodium 40 mg DAILY IV 12/17/24 10:00 12/18/24 09:40 40 MG Meropenem 50 ml @ 17 mls/hr Q8HR IV 12/17/24 22:00 12/19/24 05:38 17 MLS/HR Bumetanide 2 mg BIDD IV 12/18/24 18:00 12/19/24 06:27 2 MG Norepinephrine Bitartrate 250 ml @ 3.75 mls/hr Q24H IV 12/18/24 19:30 Hydralazine HCl 50 mg TID PO 12/18/24 22:00 Isosorbide Dinitrate 30 mg TID PO 12/18/24 22:00 objective Gen - intubated, sedated CV - RRR, no m/r/g Resp - CTAB Ext - no edema laboratory and microbiology Laboratory Tests 12/19/24 03:22 Test 12/19/24 03:22 Range/Units Serum Glucose 149 H 74-106 mg/dL Assessment/Plan # Acute toxic metabolic encephalopathy # AHRF s/p intubation # Severe bradycardia # Acute renal failure # Controlled type II DM with hyperglycemia # Coronary artery disease Well controlled dysglycemia at baseline with maintain conservative correctional insulin pharmacotherapy at baseline. Will schedule basal bolus regimen once increasing nutrition. - Continue insulin regular q6h SSI - POC BG monitoring q6h - Hypoglycemia protocol Dietary Evaluation Review Comments: 1. Pt is on fat energy support through Propofol of 860 kca, the TF needs to be a low fat, high proteiin formula. Suggest using Vital High Protein @45ml/hr, in 24 hr, pt will receive 1080 kca, 94 g protein, This formula will satisfy pt's protein neeeds at 79% and energy needs at 79% including the 860 kcal provided by Propofol running at 32.6ml/hr. Expected Outcomes/Goals: 1. Reassess protein and energy needs when pt is off vent, based on her true weight without fluid retention and possibably an improved kideny function, 2. [facility] with updated protein and energy needs, when medically feasible providing that she passes a SAP SECURITY ARCHITECT eval. Plan discussed with: Other (n/a) EBONIE TOLEDO MD Dec 19, 2024 09:22
--- NOTE | 2024-12-19 11:21 | ECG ---
[facility] Test Date: 2024-12-14 Test Time: 18:26:56 Pat Name: DENTON BLAKE Department: ED Room: [address] [place] [address] A Gender: F Field Traffic Investigator: kat : 1965 Requested By: DINO DOSS Order Number: [id number] Reading MD: Kenneth Luna Measurements Intervals [place] Rate: 29 P: -3 AR: 206 QRS: 10 QRSD: 115 T: 18 QT: 572 QTc: 398 Interpretive Statements Sinus bradycardia Prolonged AR interval Nonspecific intraventricular conduction delay Low voltage, extremity and precordial leads Consider anterior infarct Baseline wander in lead(s) V6 Electronically Signed On 12-20-2024 13:36:57 PDT by Kenneth Luna Please click the below link to view image of tracing.
[2024-12-19] MEDS: BUMETANIDE 1mg/4ml VIAL (0.25mg/ml) IV ONE (13:28)
--- NOTE | 2024-12-19 15:03 | ECG ---
[facility] Test Date: 2024-12-14 Test Time: 21:11:56 Pat Name: DENTON BLAKE Department: ED Room: [address] [place] [address] A Gender: F County Historian: GILLIAN : 1965 Requested By: DINO DOSS Order Number: [id number] Reading MD: Kenneth Luna Measurements Intervals [place] Rate: 47 P: 0 FL: 0 QRS: 30 QRSD: 117 T: 46 QT: 534 QTc: 473 Interpretive Statements Junctional rhythm Nonspecific intraventricular conduction delay Low voltage, extremity leads Minimal ST elevation, inferior leads Baseline wander in lead(s) I,II,aVR,V3,V4,V5,V6 Electronically Signed On 12-20-2024 13:37:16 PDT by Kenneth Luna Please click the below link to view image of tracing.
--- NOTE | 2024-12-19 15:07 | DVHPN2 ---
Progress Note Date Seen: Dec 19, 2024 Medical Necessity Reason Pt with a Central, PICC or Fol: Yes The following are medically ne: Gee Catheter Subjective Patient reports: Other (still intubated) Review of Systems: RESPIRATORY:Abnormal Objective vital signs Vital Sign Date Time Temp Pulse Resp B/P (MAP) Pulse Ox O2 Delivery O2 Flow Rate FiO2 12/19/24 14:45 67 22 105/46 (65) 94 12/19/24 14:24 35 12/19/24 14:00 Mechanical Ventilator+ 12/19/24 11:30 98.1 98.1 Total Intake and Output 12/18/24 12/18/24 12/19/24 15:00 23:00 07:00 Intake Total 401.34 ml 652.48 ml 804.74 ml Output Total 1450 ml 1250 ml Balance 401.34 ml -797.52 ml -445.26 ml medications Current Medications Medications Dose Ordered Sig/Julito Route Start Time Stop Time Status Last Admin Dose Admin Propofol 100 ml @ 4.08 mls/hr Q24H IV 12/15/24 05:15 12/19/24 14:22 40.8 MLS/HR Diagnostic Test (Pha) 1 strip Q6HR 12/15/24 12:00 12/19/24 11:19 1 STRIP Insulin Human Regular Q6HR SC 12/15/24 12:00 12/19/24 11:21 2 UNITS Dextrose 50 ml UD PRN IV 12/15/24 07:00 Acetaminophen 650 mg Q6HP PRN GT 12/15/24 13:00 12/15/24 13:21 650 MG Fentanyl Citrate 250 ml @ 2.5 mls/hr Q24H IV 12/16/24 11:15 12/19/24 14:23 17.5 MLS/HR Enteral Nutritional Formula 1,000 ml 40ML/HR GT 12/16/24 12:30 12/16/24 23:37 1,000 ML Mupirocin 1 applic BID EACHNOSTRI 12/16/24 22:00 12/21/24 21:59 12/19/24 09:34 1 APPLIC Enoxaparin Sodium 150 mg Q12HR SC 12/16/24 22:00 12/19/24 09:31 150 MG Ipratropium Mobile 0.5 mg Q6HR NEB 12/17/24 00:00 12/19/24 12:56 0.5 MG Albuterol 2.5 mg Q6HR NEB 12/17/24 00:00 12/19/24 12:56 2.5 MG Pantoprazole Sodium 40 mg DAILY IV 12/17/24 10:00 12/19/24 09:31 40 MG Meropenem 50 ml @ 17 mls/hr Q8HR IV 12/17/24 22:00 12/19/24 13:27 17 MLS/HR Bumetanide 2 mg BIDD IV 12/18/24 18:00 12/19/24 06:27 2 MG Norepinephrine Bitartrate 250 ml @ 3.75 mls/hr Q24H IV 12/18/24 19:30 Hydralazine HCl 50 mg TID PO 12/18/24 22:00 Isosorbide Dinitrate 30 mg TID PO 12/18/24 22:00 Examination: GENERAL:Abnormal, CVS:Abnormal laboratory and microbiology Laboratory Tests 12/19/24 03:22 Test 12/19/24 03:22 Range/Units Serum Glucose 149 H 74-106 mg/dL Microbiology Date/Time Source Procedure Growth Status 12/16/24 13:20 Blood Blood Culture - Preliminary NO GROWTH AFTER 72 HOURS OF INCUBATION. Resulted 12/15/24 13:45 Urine - Gee Port Urine Culture - Final Escherichia coli - ESBL Complete 12/15/24 11:44 Nose MRSA Screen - Final Methicillin Resistant S.aureus Complete 12/15/24 02:21 Sputum Gram Stain - Final Resulted 12/15/24 02:21 Sputum Respiratory Culture - Preliminary Resulted Problem List/Assessment/Plan Problem List/Assessment/Plan Admitted for acute respiratory distress in the setting of possible medication overdose Acute kidney injury in setting of severe Hypertension Baseline renal function is unknown Hypertensive emergency fluid overload-> diastolic HF acute respiratory failure morbid obesity History of stroke still intubated Luiz resolving Bumex IV off drip BP improved now on po Strict Is&Os Renal function is improving with fluid removal monitor electrolytes closely. Will sogn off case Plan discussed with: Other Dietary Evaluation Review Comments: 1. Pt is on fat energy support through Propofol of 860 kca, the TF needs to be a low fat, high proteiin formula. Suggest using Vital High Protein @45ml/hr, in 24 hr, pt will receive 1080 kca, 94 g protein, This formula will satisfy pt's protein neeeds at 79% and energy needs at 79% including the 860 kcal provided by Propofol running at 32.6ml/hr. Expected Outcomes/Goals: 1. Reassess protein and energy needs when pt is off vent, based on her true weight without fluid retention and possibably an improved kideny function, 2. Advance to CCHO-diet with updated protein and energy needs, when medically feasible providing that she passes a FORENSIC ACCOUNTANT eval. DIXIE LUONG MD Dec 19, 2024 15:07
--- NOTE | 2024-12-19 16:16 | DVHPN2 ---
Progress Note - Dictate Date Seen: Dec 19, 2024 Medical Necessity Reason Pt with a Central, PICC or Fol: Yes The following are medically ne: Gee Catheter Subjective Patient was seen and evaluated in follow up in the ICU. Patient is intubated and sedated on ventilator. FiO2 was decreased to 35%. Patient is receiving TFs at 40 ml/hr. HGB 9.5, HCT 31.5, NA 147, K 3.4, CO2 34, BUN 39, IT INFRASTRUCTURE SPECIALIST 1.24. Chest x-ray shows pulmonary congestion similar to prior study. vital signs Vital Sign Date Time Temp Pulse Resp B/P (MAP) Pulse Ox O2 Delivery O2 Flow Rate FiO2 12/19/24 11:30 98.1 68 22 125/53 (77) 95 98.1 12/19/24 10:39 35 12/19/24 10:00 Mechanical Ventilator+ Total Intake and Output 12/18/24 12/18/24 12/19/24 15:00 23:00 07:00 Intake Total 401.34 ml 652.48 ml 804.74 ml Output Total 1450 ml 1250 ml Balance 401.34 ml -797.52 ml -445.26 ml medications Current Medications Medications Dose Ordered Sig/Julito Route Start Time Stop Time Status Last Admin Dose Admin Propofol 100 ml @ 4.08 mls/hr Q24H IV 12/15/24 05:15 12/19/24 10:34 40.8 MLS/HR Diagnostic Test (Pha) 1 strip Q6HR 12/15/24 12:00 12/19/24 11:19 1 STRIP Insulin Human Regular Q6HR SC 12/15/24 12:00 12/19/24 11:21 2 UNITS Dextrose 50 ml UD PRN IV 12/15/24 07:00 Acetaminophen 650 mg Q6HP PRN GT 12/15/24 13:00 12/15/24 13:21 650 MG Fentanyl Citrate 250 ml @ 2.5 mls/hr Q24H IV 12/16/24 11:15 12/19/24 02:05 15 MLS/HR Enteral Nutritional Formula 1,000 ml 40ML/HR GT 12/16/24 12:30 12/16/24 23:37 1,000 ML Mupirocin 1 applic BID EACHNOSTRI 12/16/24 22:00 12/21/24 21:59 12/19/24 09:34 1 APPLIC Enoxaparin Sodium 150 mg Q12HR SC 12/16/24 22:00 12/19/24 09:31 150 MG Ipratropium [place] 0.5 mg Q6HR NEB 12/17/24 00:00 12/19/24 06:17 0.5 MG Albuterol 2.5 mg Q6HR NEB 12/17/24 00:00 12/19/24 06:17 2.5 MG Pantoprazole Sodium 40 mg DAILY IV 12/17/24 10:00 12/19/24 09:31 40 MG Meropenem 50 ml @ 17 mls/hr Q8HR IV 12/17/24 22:00 12/19/24 05:38 17 MLS/HR Bumetanide 2 mg BIDD IV 12/18/24 18:00 12/19/24 06:27 2 MG Norepinephrine Bitartrate 250 ml @ 3.75 mls/hr Q24H IV 12/18/24 19:30 Hydralazine HCl 50 mg TID PO 12/18/24 22:00 Isosorbide Dinitrate 30 mg TID PO 12/18/24 22:00 objective GENERAL: Intubated on ventilator. Morbidly obese . EYES: PERRL, EOMI. Anicteric. HENT: Moist mucous membranes. LUNGS: Decreased all breath sounds. CARDIOVASCULAR: Regular rate and rhythm. ABDOMEN: Soft, nontender and nondistended. EXTREMITIES: No edema. SKIN: Warm, dry. laboratory and microbiology Laboratory Tests 12/19/24 03:22 Test 12/19/24 03:22 Range/Units Serum Glucose 149 H 74-106 mg/dL Problem List Accidental medication overdose. Acute encephalopathy. Acute respiratory failure. Respiratory acidosis. Right pleural effusion. Leukocytosis Chest pain. Bradycardia. CHF. CAD. Acute renal failure Hyperkalemia. UTI. DM type 2. Hypertension. Morbid obesity. History of CVA. Assessment/Plan Continued all current supportive medical care. IV antibiotics as ordered. Diuretics with Bumex. DVT prophylactics. IV Hydralazine for SBP >150. Morphine for pain management. Additional plan as per the hospital course. Critical care time of 45 minutes provided to include time spent evaluation of patient at bedside, when appropriate patient/family education for diagnosis, treatment plan, review of pertinent medical information and discussion of care with specialty providers and PCP. Mechanical ventilator parameters, treatment and adjustments have personally been reviewed by me and treatment plan by insulation estimator has also been reviewed. Dietary Evaluation Review Comments: 1. Pt is on fat energy support through Propofol of 860 kca, the TF needs to be a low fat, high proteiin formula. Suggest using Vital High Protein @45ml/hr, in 24 hr, pt will receive 1080 kca, 94 g protein, This formula will satisfy pt's protein neeeds at 79% and energy needs at 79% including the 860 kcal provided by Propofol running at 32.6ml/hr. Expected Outcomes/Goals: 1. Reassess protein and energy needs when pt is off vent, based on her true weight without fluid retention and possibably an improved kideny function, 2. Advance to CCHO-diet with updated protein and energy needs, when medically feasible providing that she passes a CHIEF UNIT FORESTER eval. Plan discussed with: FRANTZ Leyva MD Dec 19, 2024 12:01
--- NOTE | 2024-12-19 18:36 | DVHPNRES ---
Progress Note Date Seen: Dec 19, 2024 Resident Creating Document: JACKY GARCIA RESIDENT Medical Necessity Reason Pt with a Central, PICC or Fol: Yes The following are medically ne: Gee Catheter Subjective Review of Systems Patient is a 59-year-old female with a past medical history of COPD, insulin dependent type 2 diabetes mellitus, congestive heart failure, coronary artery disease was brought to the hospital via EMS with altered mental status and bradycardia. As per patient's niece who is her take her traffic maintenance supervisor, when she went to her room to give in the afternoon, she found with the patient to be confused and she checked her vitals reported low blood pressure and heart rate in 30s which she suspected might be because she took her blood pressure medications twice, following which she called EMS and the patient was brought to the hospital. She reports patient has been in and out of the hospital since the past 6 months for complains of shortness of breath. The last time she was hospitalized was in [facility] about 2.5-3 months ago following which she was sent [facility] from where she got discharged about a week ago to home. Patient has been bed-bound since the last 8 years. At home patient has an oxygen concentrator and uses oxygen at 8-10 L per minute. Patient came in with altered mental status and ABG showed respiratory acidosis following which she was intubated and put on mechanical ventilation. Past medical history: COPD with 8-10 L oxygen per minute at home, insulin dependent type 2 diabetes mellitus, congestive heart failure, coronary artery disease, atrial fibrillation Past surgical history: Denies Social history: Patient is bed-bound, her niece as the traffic maintenance supervisor, denies smoking, alcohol, any other drug use Home medications: Amiodarone 200 mg b.i.d., aspirin 81 mg daily, Jardiance 25 mg daily, fluticasone inhaler, Lasix 80 mg, metoprolol succinate 100 mg daily, losartan 100 mg daily, Eliquis 5 mg b.i.d. Review of systems Patient seen and examined at the bedside Patient is sedated and on mechanical ventilation continues to be on sedation and urine output recorded at 2250 overnight and during the day had 1 bowel movement Objective vital signs Vital Sign Date Time Temp Pulse Resp B/P (MAP) Pulse Ox O2 Delivery O2 Flow Rate FiO2 12/19/24 18:15 66 22 118/51 (73) 94 12/19/24 18:00 Mechanical Ventilator+ 35 35 12/19/24 17:00 98.5 98.5 Total Intake and Output 12/18/24 12/18/24 12/19/24 15:00 23:00 07:00 Intake Total 401.34 ml 652.48 ml 804.74 ml Output Total 1450 ml 1250 ml Balance 401.34 ml -797.52 ml -445.26 ml medications Current Medications Medications Dose Ordered Sig/Julito Route Start Time Stop Time Status Last Admin Dose Admin Propofol 100 ml @ 4.08 mls/hr Q24H IV 12/15/24 05:15 12/19/24 16:48 40.8 MLS/HR Diagnostic Test (Pha) 1 strip Q6HR 12/15/24 12:00 12/19/24 17:55 1 STRIP Insulin Human Regular Q6HR SC 12/15/24 12:00 12/19/24 18:14 2 UNITS Dextrose 50 ml UD PRN IV 12/15/24 07:00 Acetaminophen 650 mg Q6HP PRN GT 12/15/24 13:00 12/15/24 13:21 650 MG Fentanyl Citrate 250 ml @ 2.5 mls/hr Q24H IV 12/16/24 11:15 12/19/24 14:23 17.5 MLS/HR Enteral Nutritional Formula 1,000 ml 40ML/HR GT 12/16/24 12:30 12/16/24 23:37 1,000 ML Mupirocin 1 applic BID EACHNOSTRI 12/16/24 22:00 12/21/24 21:59 12/19/24 09:34 1 APPLIC Enoxaparin Sodium 150 mg Q12HR SC 12/16/24 22:00 12/19/24 09:31 150 MG Ipratropium [place] 0.5 mg Q6HR NEB 12/17/24 00:00 12/19/24 12:56 0.5 MG Albuterol 2.5 mg Q6HR NEB 12/17/24 00:00 12/19/24 12:56 2.5 MG Pantoprazole Sodium 40 mg DAILY IV 12/17/24 10:00 12/19/24 09:31 40 MG Meropenem 50 ml @ 17 mls/hr Q8HR IV 12/17/24 22:00 12/19/24 13:27 17 MLS/HR Bumetanide 2 mg BIDD IV 12/18/24 18:00 12/19/24 17:43 2 MG Norepinephrine Bitartrate 250 ml @ 3.75 mls/hr Q24H IV 12/18/24 19:30 Hydralazine HCl 50 mg TID PO 12/18/24 22:00 Isosorbide Dinitrate 30 mg TID PO 12/18/24 22:00 Examination Constitutional: Patient was morbidly obese, sedated and mechanically ventilated with RASS -3 Gen - no pallor, no icterus, no cyanosis, no clubbing, no LAD, trace edema. Skin - Patients skin is warm and dry. HEENT - normocephalic, atraumatic, moist mucous membranes. Neck - full ROM, no LAD, JVD could not be assessed. Pulmonary - B/L diminished breath sounds with inspiratory crackles, no wheezing cardiovascular - variable S1,S2 heard, no added sounds, no murmurs heard. GI - obese, soft abdomen, large area of dark discoloration below the umbilicus Neurological - currently mechanically ventilated, RASS -3, gag reflex present, pupils equal and reactive laboratory and microbiology Laboratory Tests 12/19/24 03:22 Test 12/19/24 03:22 Range/Units Serum Glucose 149 H 74-106 mg/dL Microbiology Date/Time Source Procedure Growth Status 12/16/24 13:20 Blood Blood Culture - Preliminary NO GROWTH AFTER 72 HOURS OF INCUBATION. Resulted 12/15/24 13:45 Urine - Gee Port Urine Culture - Final Escherichia coli - ESBL Complete 12/15/24 11:44 Nose MRSA Screen - Final Methicillin Resistant S.aureus Complete 12/15/24 02:21 Sputum Gram Stain - Final Resulted 12/15/24 02:21 Sputum Respiratory Culture - Preliminary Resulted Problem List/Assessment/Plan Problem List/Assessment/Plan Neurology Acute metabolic encephalopathy likely due to hypercapnia - on mechanical ventilation - morning ABG compensated with respiratory acidosis and metabolic alkalosis Respiratory Acute on chronic hypoxic/hypercarbic respiratory failure likely due to COPD/LAZARA/OHS On mechanical ventilation Sepsis likely due to pneumonia Pneumonia likely due to Gram +/- bacteria Pulmonary edema - on ventilator with a FiO2 35%, peep 5, respiratory rate 24, tidal volume 500 - IV meropenam - bumex 2mg bid - diuresis to be increased for a net negative balance of -1.5 to -2 L per day Cardiovascular Acute on chronic heart failure with reduced ejection fraction Pulmonary edema likely due to above Hypertensive heart disease with heart failure Bradycardia with AV block, junctional rhythm, resolved H/o atrial fibrillation - ECG showed bradycardia with prolonged MN interval - on Bumex - hydralazine 50 mg t.i.d. and isosorbide dinitrate 30 mg t.i.d. - on enoxaparin therapeutic dose Nephrology VIVI on CKD likely prerenal due to VMN - FENa < 1% - BUN and creatinine improving - urine output over last 24 hours > 5L - bumex 2mg bid Endocrinology Insulin-dependent type 2 diabetes mellitus with hyperglycemia - on insulin sliding scale - on Glucerna at 40 mL/hour Infectious disease Sepsis likely due to pneumonia/UTI UTI with long-term indwelling Gee catheter, with ESBL E.coli present on admission MRSA nares positive - urine culture shows ESBL E.Coli - respiratory culture pending - blood cultures showed growth of staph epidermidis which could be a contaminant, repeated cultures - on IV Meropenam - mupirocin ointment Diet: Glucerna at 40 mL/hour via NG PUD prophylaxis: Protonix DVT prophylaxis: Enoxaparin Left IJV TLC inserted on 12/15 Gee's catheter inserted on 12/16 Goals of care discussed with the patient's niece for over 30 minutes. Full code Critical care time spent excluding procedures: 61 minutes Plan discussed with Dr. Peace Plan discussed with: Other (Niece, RN ( Genie )) My Orders My Orders Orders - JACKY GARCIA RESIDENT Procedure Category Date Status Time Norepinephrine 8 PHA 12/18/24 In Process Mg/250ml Kit 19:30 Hydralazine Hcl PHA 12/18/24 In Process Tablet (Apresoline 22:00 Isosorbide Dinitrate PHA 12/18/24 In Process Tablet (Isordil Tab 22:00 Chest Xray 1 View XY 12/19/24 Resulted 04:00 Abg W/ Co-Ox RT 12/19/24 Logged 04:00 Dietary Evaluation Review Comments: 1. Pt is on fat energy support through Propofol of 860 kca, the TF needs to be a low fat, high proteiin formula. Suggest using Vital High Protein @45ml/hr, in 24 hr, pt will receive 1080 kca, 94 g protein, This formula will satisfy pt's protein neeeds at 79% and energy needs at 79% including the 860 kcal provided by Propofol running at 32.6ml/hr. Expected Outcomes/Goals: 1. Reassess protein and energy needs when pt is off vent, based on her true weight without fluid retention and possibably an improved kideny function, 2. Advance to CCHO-diet with updated protein and energy needs, when medically feasible providing that she passes a CATERPILLAR OPERATOR eval. Date of Service: Dec 19, 2024 Billing Provider: FRANNY PEACE MD Common Visit Codes: 42043-[id number] CARE 30-74 MIN JACKY GARCIA RESIDENT Dec 19, 2024 18:36 FRANNY PEACE MD Dec 21, 2024 21:24
[2024-12-20] VITALS (104 sets, daily range): BP systolic 81–175; BP diastolic 33–89; PULSE 59–82; RESP 7–25; TEMP 98–99.8; O2SAT 89–100
[2024-12-20 03:54] LABS: Basophils # (auto) 0 10 ^3/uL (0-0.2); Hemoglobin 9.1 g/dL (12.2-16.2); Lymphocytes % (auto) 12.1 % (10.0-50.0); White Blood Cell 7.9 10^3/uL (4.4-10.8)
[2024-12-20 03:56] LABS: Basophils % (auto) 0.5 % (0.0-2.0); Eosinophils # (auto) 0.9 10 ^3/uL (0-0.8); Eosinophils % (auto) 10.7 % (0.0-7.0); Hematocrit 29.8 % (36.0-46.0); Mean Corpuscular Hemoglobin 24.3 pg (28.0-32.0); Mean Corpuscular Hgb Conc. 30.4 g/dL (32.0-36.0); Mean Corpuscular Volume 79.8 fL (80.0-100.0); Monocytes # (auto) 0.8 10 ^3/uL (0-1.3); Monocytes % (auto) 9.6 % (0.0-12.0); Neutrophils # (auto) 5.3 10 ^3/uL (1.6-8.6); Neutrophils % (auto) 67.1 % (37.0-80.0); Nucleated Red Blood Cells % 0.2 %; Platelet Count (auto) 324 10^3/uL (140-450); Red Blood Cells 3.73 10^6/uL (4.0-5.20); Red Cell Distribution Width 18.9 % (11.8-14.3)
[2024-12-20 04:11] LABS: Anion Gap 7 (5-15); Calcium 9.5 mg/dL (8.7-10.4); Chloride 106 mmol/L (98-107); Potassium 3.8 mmol/L (3.5-5.1)
[2024-12-20 04:16] LABS: BUN/Creatinine Ratio 32.5 (10.0-20.0); Magnesium 2.3 mg/dL (1.6-2.6)
[2024-12-20 04:32] LABS: Blood Urea Nitrogen 37 mg/dL (9-23); Carbon Dioxide 35 mmol/L (20-31); Glucose 140 mg/dL (74-106); Sodium 148 mmol/L (136-145)
--- NOTE | 2024-12-20 06:16 | DVH ---
EXAM: XR Chest, 1 View CLINICAL INDICATION: pulm congestion f/up, on [facility] ventilator TECHNIQUE: Frontal view of the chest. COMPARISON: XY CHEST XRAY 1 VIEW on DOS: 12/19/24, XY CHEST XRAY 1 VIEW on DOS: 12/18/24, XY CHEST XR AY 1 VIEW on DOS: 12/17/24, XY CHEST PORTABLE on DOS: 12/16/24, XY CHEST XRAY 1 VIEW on DOS: 12/15/24 FINDINGS: LUNGS AND PLEURAL SPACES: See below. HEART: Cardiomegaly with pulmonary congestion and edema. Superimposed pneumonia cannot be excluded. MEDIASTINUM: Unremarkable. Normal mediastinal contour. BONES/JOINTS: Unremarkable. No acute fracture. TUBES, LINES AND DEVICES: The endotracheal tube (ETT) is in satisfactory position. Enteric tube ti p cannot be seen but is below the diaphragm. OTHER FINDINGS: . . . IMPRESSION: Cardiomegaly with pulmonary congestion and edema. Superimposed pneumonia cannot be excluded.
[2024-12-20 07:48] LABS: Base Excess 9.3 mmol/L (-2.0-3.0)
[2024-12-20] MEDS: POTASSIUM CHL 20MEQ/50ML 50 ML IV ONE (11:04)
[2024-12-20] MEDS: acetaZOLAMIDE SODIUM 500 MG VL IV ONE (11:25)
[2024-12-20] MEDS: BUMETANIDE 2.5mg/10ml (0.25 mg/ml) INJ IV ONE (13:00)
[2024-12-20] MEDS: BUMETANIDE 1mg/4ml VIAL (0.25mg/ml) IV ONE (15:35)
[2024-12-20 17:26] LABS: Potassium 3.9 mmol/L (3.5-5.1)
[2024-12-20 17:33] LABS: Magnesium 2.3 mg/dL (1.6-2.6)
[2024-12-20] MEDS: FREE WATER GT SCH (18:13)
[2024-12-20] MEDS: LINEZOLID 600MG/300ML 300 ML IV SCH (21:54)
[2024-12-20] MEDS: ISOSORBIDE DINITRATE 10 MG TAB PO SCH (21:56)
--- NOTE | 2024-12-20 22:13 | DVHPNRES ---
Progress Note Date Seen: Dec 20, 2024 Resident Creating Document: JACKY GARCIA RESIDENT Medical Necessity Reason Pt with a Central, PICC or Fol: Yes The following are medically ne: Gee Catheter Subjective Review of Systems Patient is a 59-year-old female with a past medical history of COPD, insulin dependent type 2 diabetes mellitus, congestive heart failure, coronary artery disease was brought to the hospital via EMS with altered mental status and bradycardia. As per patient's niece who is her take her chief specialist leed, when she went to her room to give in the afternoon, she found with the patient to be confused and she checked her vitals reported low blood pressure and heart rate in 30s which she suspected might be because she took her blood pressure medications twice, following which she called EMS and the patient was brought to the hospital. She reports patient has been in and out of the hospital since the past 6 months for complains of shortness of breath. The last time she was hospitalized was in [facility] about 2.5-3 months ago following which she was sent to rehab facility and [facility] from where she got discharged about a week ago to home. Patient has been bed-bound since the last 8 years. At home patient has an oxygen concentrator and uses oxygen at 8-10 L per minute. Patient came in with altered mental status and ABG showed respiratory acidosis following which she was intubated and put on mechanical ventilation. Past medical history: COPD with 8-10 L oxygen per minute at home, insulin dependent type 2 diabetes mellitus, congestive heart failure, coronary artery disease, atrial fibrillation Past surgical history: Denies Social history: Patient is bed-bound, her niece as the chief specialist leed, denies smoking, alcohol, any other drug use Home medications: Amiodarone 200 mg b.i.d., aspirin 81 mg daily, Jardiance 25 mg daily, fluticasone inhaler, Lasix 80 mg, metoprolol succinate 100 mg daily, losartan 100 mg daily, Eliquis 5 mg b.i.d. Review of systems Patient seen and examined at the bedside Patient is sedated and on mechanical ventilation continues to be on sedation with propofol and fentanyl urine output reviewed, 1mg bumex given apart from the scheduled dose to increase net negative balance had 1 bowel movement Objective vital signs Vital Sign Date Time Temp Pulse Resp B/P (MAP) Pulse Ox O2 Delivery O2 Flow Rate FiO2 4/18/25 21:56 125/52 12/20/24 20:19 73 22 94 35 12/20/24 20:00 Mechanical Ventilator+ 12/20/24 16:00 98.4 98.4 Total Intake and Output 12/19/24 12/19/24 12/20/24 15:00 23:00 07:00 Intake Total 708.9 ml 764.0 ml 901.9 ml Output Total 1050 ml 1250 ml Balance 708.9 ml -286.0 ml -348.1 ml medications Current Medications Medications Dose Ordered Sig/Julito Route Start Time Stop Time Status Last Admin Dose Admin Propofol 100 ml @ 4.08 mls/hr Q24H IV 12/15/24 05:15 12/20/24 21:00 40.8 MLS/HR Diagnostic Test (Pha) 1 strip Q6HR 12/15/24 12:00 12/20/24 18:12 1 STRIP Insulin Human Regular Q6HR SC 12/15/24 12:00 12/20/24 18:16 2 UNITS Dextrose 50 ml UD PRN IV 12/15/24 07:00 Acetaminophen 650 mg Q6HP PRN GT 12/15/24 13:00 12/15/24 13:21 650 MG Fentanyl Citrate 250 ml @ 2.5 mls/hr Q24H IV 12/16/24 11:15 12/20/24 17:51 22.5 MLS/HR Enteral Nutritional Formula 1,000 ml 40ML/HR GT 12/16/24 12:30 12/16/24 23:37 1,000 ML Mupirocin 1 applic BID EACHNOSTRI 12/16/24 22:00 12/21/24 21:59 12/20/24 21:54 1 APPLIC Enoxaparin Sodium 150 mg Q12HR SC 12/16/24 22:00 12/20/24 11:03 150 MG Ipratropium [place] 0.5 mg Q6HR NEB 12/17/24 00:00 12/20/24 18:12 0.5 MG Albuterol 2.5 mg Q6HR NEB 12/17/24 00:00 12/20/24 18:12 2.5 MG Pantoprazole Sodium 40 mg DAILY IV 12/17/24 10:00 12/20/24 10:21 40 MG Meropenem 50 ml @ 17 mls/hr Q8HR IV 12/17/24 22:00 12/20/24 13:57 17 MLS/HR Bumetanide 2 mg BIDD IV 12/18/24 18:00 12/20/24 18:13 2 MG Norepinephrine Bitartrate 250 ml @ 3.75 mls/hr Q24H IV 12/18/24 19:30 12/20/24 15:47 3.75 MLS/HR Hydralazine HCl 50 mg TID PO 12/18/24 22:00 Isosorbide Dinitrate 20 mg TID PO 12/20/24 22:00 Purified Water 200 ml Q6HR GT 12/20/24 18:00 12/20/24 18:13 200 ML Linezolid 300 ml @ 150 mls/hr Q12HR IV 12/20/24 22:00 12/20/24 21:54 150 MLS/HR Examination Constitutional: Patient was morbidly obese, sedated and mechanically ventilated with RASS -4 Gen - no pallor, no icterus, no cyanosis, no clubbing, no LAD, trace edema. Skin - Patients skin is warm and dry. HEENT - normocephalic, atraumatic, moist mucous membranes. Neck - full ROM, no LAD, JVD could not be assessed. Pulmonary - B/L diminished breath sounds with inspiratory crackles, no wheezing cardiovascular - variable S1,S2 heard, no added sounds, no murmurs heard. GI - obese, soft abdomen, large area of dark discoloration below the umbilicus Neurological - currently mechanically ventilated, RASS -4, gag reflex present, pupils equal and reactive laboratory and microbiology Laboratory Tests 12/20/24 17:00 12/20/24 03:10 Test 12/20/24 03:10 Range/Units Serum Glucose 140 H 74-106 mg/dL Microbiology Date/Time Source Procedure Growth Status 12/16/24 13:20 Blood Blood Culture - Preliminary NO GROWTH AFTER 72 HOURS OF INCUBATION. Resulted 12/15/24 13:45 Urine - Gee Port Urine Culture - Final Escherichia coli - ESBL Complete 12/15/24 11:44 Nose MRSA Screen - Final Methicillin Resistant S.aureus Complete 12/15/24 02:21 Sputum Gram Stain - Final Complete 12/15/24 02:21 Respiratory Culture - Final Pseudomonas aeruginosa Methicillin Resistant S.aureus Complete Problem List/Assessment/Plan Problem List/Assessment/Plan Neurology Acute metabolic encephalopathy likely due to hypercapnia - on mechanical ventilation - morning ABG mild metabolic alkalosis with resp compensation Respiratory Acute on chronic hypoxic/hypercarbic respiratory failure likely due to COPD/LAZARA/OHS On mechanical ventilation Sepsis likely due to pneumonia Pneumonia likely due to Gram +/- bacteria Pulmonary edema - on ventilator with a FiO2 35%, peep 5, respiratory rate 24, tidal volume 500 - sputum cultures growing MRSA and pseudomonas - IV meropenam and linezolid - bumex 2mg bid - diuresis to be increased for a net negative balance of -1.5 to -2 L per day Cardiovascular Acute on chronic heart failure with reduced ejection fraction Pulmonary edema likely due to above Hypertensive heart disease with heart failure Bradycardia with AV block, junctional rhythm, resolved H/o atrial fibrillation - ECG showed bradycardia with prolonged NM interval - on Bumex - hydralazine 50 mg t.i.d. and isosorbide dinitrate 20 mg t.i.d. - on enoxaparin therapeutic dose Nephrology VIVI on CKD likely prerenal due to VMN - FENa < 1% - BUN and creatinine improving Endocrinology Insulin-dependent type 2 diabetes mellitus with hyperglycemia - on insulin sliding scale - on Glucerna at 40 mL/hour Infectious disease Sepsis likely due to pneumonia/UTI UTI with long-term indwelling Gee catheter, with ESBL E.coli present on admission MRSA nares positive - urine culture shows ESBL E.Coli - respiratory culture pending - blood cultures showed growth of staph epidermidis which could be a contaminant, repeated cultures - on IV Meropenam - mupirocin ointment Diet: Glucerna at 40 mL/hour via NG PUD prophylaxis: Protonix DVT prophylaxis: Enoxaparin Left IJV TLC inserted on 12/15 Gee's catheter inserted on 12/16 Goals of care discussed with the patient's niece and elder sister for over 30 minutes. Full code Critical care time spent excluding procedures: 43 minutes Plan discussed with Dr. Wade Plan discussed with: Other (Niece, sister, RN ( Cat )) My Orders My Orders Orders - JACKY GARCIA RESIDENT Procedure Category Date Status Time Isosorbide Dinitrate PHA 12/20/24 In Process Tablet (Isordil Tab 22:00 Free Water PHA 12/20/24 In Process 18:00 Echo 2d Mode Cardiac US 12/20/24 Logged DOP 16:35 Linezolid 600mg/300ml PHA 12/20/24 In Process (Zyvox) 22:00 Dietary Evaluation Review Comments: 1. Pt is on fat energy support through Propofol of 860 kca, the TF needs to be a low fat, high proteiin formula. Suggest using Vital High Protein @45ml/hr, in 24 hr, pt will receive 1080 kca, 94 g protein, This formula will satisfy pt's protein neeeds at 79% and energy needs at 79% including the 860 kcal provided by Propofol running at 32.6ml/hr. Expected Outcomes/Goals: 1. Reassess protein and energy needs when pt is off vent, based on her true weight without fluid retention and possibably an improved kideny function, 2. Advance to CCHO-diet with updated protein and energy needs, when medically feasible providing that she passes a HALAL BUTCHER eval. JACKY GARCIA RESIDENT Dec 20, 2024 22:13
[2024-12-20] MEDS: ALBUMIN 5% 250 ML IV ONE (22:14)
--- NOTE | 2024-12-20 23:09 | DVHPN2 ---
Progress Note - Dictate Date Seen: Dec 20, 2024 Medical Necessity Reason Pt with a Central, PICC or Fol: Yes The following are medically ne: Gee Catheter Subjective Patient was seen and evaluated in follow up in the ICU. Patient is intubated and sedated on ventilator. FiO2 35%. Patient on Levophed drip. HGB 9.1, HCT 29.8, NA 148, CO2 35, BUN 37, STOCK TRADER 1.14. Chest x-ray shows cardiomegaly with pulmonary congestion and edema. vital signs Vital Sign Date Time Temp Pulse Resp B/P (MAP) Pulse Ox O2 Delivery O2 Flow Rate FiO2 12/20/24 11:25 132/57 12/20/24 10:34 74 22 100 35 12/20/24 10:00 Mechanical Ventilator 12/20/24 04:15 98.4 98.4 Total Intake and Output 12/19/24 12/19/24 12/20/24 15:00 23:00 07:00 Intake Total 708.9 ml 764.0 ml 838.6 ml Output Total 1050 ml 1250 ml Balance 708.9 ml -286.0 ml -411.4 ml medications Current Medications Medications Dose Ordered Sig/Julito Route Start Time Stop Time Status Last Admin Dose Admin Propofol 100 ml @ 4.08 mls/hr Q24H IV 12/15/24 05:15 12/20/24 11:34 40.8 MLS/HR Diagnostic Test (Pha) 1 strip Q6HR 12/15/24 12:00 12/20/24 05:48 1 STRIP Insulin Human Regular Q6HR SC 12/15/24 12:00 12/20/24 06:02 2 UNITS Dextrose 50 ml UD PRN IV 12/15/24 07:00 Acetaminophen 650 mg Q6HP PRN GT 12/15/24 13:00 12/15/24 13:21 650 MG Fentanyl Citrate 250 ml @ 2.5 mls/hr Q24H IV 12/16/24 11:15 12/20/24 04:44 20 MLS/HR Enteral Nutritional Formula 1,000 ml 40ML/HR GT 12/16/24 12:30 12/16/24 23:37 1,000 ML Mupirocin 1 applic BID EACHNOSTRI 12/16/24 22:00 12/21/24 21:59 12/20/24 10:22 1 APPLIC Enoxaparin Sodium 150 mg Q12HR SC 12/16/24 22:00 12/20/24 11:03 150 MG Ipratropium [place] 0.5 mg Q6HR NEB 12/17/24 00:00 12/20/24 06:50 0.5 MG Albuterol 2.5 mg Q6HR NEB 12/17/24 00:00 12/20/24 06:50 2.5 MG Pantoprazole Sodium 40 mg DAILY IV 12/17/24 10:00 12/20/24 10:21 40 MG Meropenem 50 ml @ 17 mls/hr Q8HR IV 12/17/24 22:00 12/20/24 05:46 17 MLS/HR Bumetanide 2 mg BIDD IV 12/18/24 18:00 12/20/24 05:46 2 MG Norepinephrine Bitartrate 250 ml @ 3.75 mls/hr Q24H IV 12/18/24 19:30 Hydralazine HCl 50 mg TID PO 12/18/24 22:00 Isosorbide Dinitrate 30 mg TID PO 12/18/24 22:00 objective GENERAL: Intubated on ventilator. Morbidly obese . EYES: PERRL, EOMI. Anicteric. HENT: Moist mucous membranes. LUNGS: Decreased all breath sounds. CARDIOVASCULAR: Regular rate and rhythm. ABDOMEN: Soft, nontender and nondistended. EXTREMITIES: No edema. SKIN: Warm, dry. laboratory and microbiology Laboratory Tests 12/20/24 03:10 Test 12/20/24 03:10 Range/Units Serum Glucose 140 H 74-106 mg/dL Problem List Accidental medication overdose. Acute encephalopathy. Acute respiratory failure. Respiratory acidosis. Right pleural effusion. Leukocytosis Chest pain. Bradycardia. CHF. CAD. Acute renal failure Hyperkalemia. UTI. DM type 2. Hypertension. Morbid obesity. History of CVA. Assessment/Plan Continued all current supportive medical care. Diuretics with Bumex. DVT and GI prophylactics. IV Hydralazine for SBP >150. IV antibiotics as ordered. Vasopressors for hemodynamic support. Additional plan as per the hospital course. Critical care time of 45 minutes provided to include time spent evaluation of patient at bedside, when appropriate patient/family education for diagnosis, treatment plan, review of pertinent medical information and discussion of care with specialty providers and PCP. Mechanical ventilator parameters, treatment and adjustments have personally been reviewed by me and treatment plan by ict development manager has also been reviewed. Dietary Evaluation Review Comments: 1. Pt is on fat energy support through Propofol of 860 kca, the TF needs to be a low fat, high proteiin formula. Suggest using Vital High Protein @45ml/hr, in 24 hr, pt will receive 1080 kca, 94 g protein, This formula will satisfy pt's protein neeeds at 79% and energy needs at 79% including the 860 kcal provided by Propofol running at 32.6ml/hr. Expected Outcomes/Goals: 1. Reassess protein and energy needs when pt is off vent, based on her true weight without fluid retention and possibably an improved kideny function, 2. Advance to CCHO-diet with updated protein and energy needs, when medically feasible providing that she passes a SYSTEMS INTEGRATION MANAGER eval. Plan discussed with: Other FRANTZ HOSKINS MD Dec 20, 2024 12:14
[2024-12-21] VITALS (107 sets, daily range): BP systolic 82–166; BP diastolic 34–67; PULSE 60–77; RESP 9–24; TEMP 98.2–99.8; O2SAT 90–100
[2024-12-21 04:14] LABS: Basophils # (auto) 0.1 10 ^3/uL (0-0.2); Basophils % (auto) 0.7 % (0.0-2.0); Hematocrit 30.3 % (36.0-46.0); Hemoglobin 9.3 g/dL (12.2-16.2); Lymphocytes # (auto) 1.1 10 ^3/uL (0.4-5.4); Lymphocytes % (auto) 13.1 % (10.0-50.0); Mean Corpuscular Hemoglobin 24.6 pg (28.0-32.0); Mean Corpuscular Hgb Conc. 30.6 g/dL (32.0-36.0); Mean Corpuscular Volume 80.3 fL (80.0-100.0); Monocytes # (auto) 0.9 10 ^3/uL (0-1.3); Monocytes % (auto) 10.2 % (0.0-12.0); Neutrophils # (auto) 5.7 10 ^3/uL (1.6-8.6); Nucleated Red Blood Cells % 0.3 %; Platelet Count (auto) 357 10^3/uL (140-450); Red Blood Cells 3.77 10^6/uL (4.0-5.20); Red Cell Distribution Width 18.8 % (11.8-14.3); White Blood Cell 8.7 10^3/uL (4.4-10.8)
[2024-12-21 04:19] LABS: Chloride 106 mmol/L (98-107)
[2024-12-21 04:20] LABS: Anion Gap 10 (5-15); Calcium 9.5 mg/dL (8.7-10.4)
[2024-12-21 04:25] LABS: BUN/Creatinine Ratio 27.8 (10.0-20.0)
[2024-12-21 04:30] LABS: Blood Urea Nitrogen 32 mg/dL (9-23); Carbon Dioxide 33 mmol/L (20-31); Glucose 137 mg/dL (74-106); Potassium 3.4 mmol/L (3.5-5.1); Sodium 149 mmol/L (136-145)
[2024-12-21] MEDS: POTASSIUM CHL 20MEQ/50ML 50 ML IV ONE ×2 (05:50→11:21)
[2024-12-21] MEDS: BUMETANIDE 1mg/4ml VIAL (0.25mg/ml) ONE (06:05)
--- NOTE | 2024-12-21 06:08 | DVH ---
CHEST RADIOGRAPH Indication: B/L pulmonary edema, improving Technique: Single frontal view of the chest was obtained Comparison: XY CHEST XRAY 1 VIEW on DOS: 12/20/24, XY CHEST XRAY 1 VIEW on DOS: 12/19/24, XY CHEST XRAY 1 VIEW on DOS: 12/18/24 IMPRESSION: There is cardiomegaly. Probable small to moderate bilateral pleural effusions. Moderate pulmonary va scular congestion. No pneumothorax. Left IJ catheter tip in the region of the brachiocephalic. Endotr acheal tube tip approximately 2 cm from the consuelo. Enteric tube tip not visualized along the inferi or aspect of the examination.
[2024-12-21 07:42] LABS: Base Excess 7.1 mmol/L (-2.0-3.0)
--- NOTE | 2024-12-21 10:39 | DVHPN2 ---
Subjective Update 12/21 patient was admitted for COPD exacerbation hypercapnia also FF acute volume overload CHF exacerbation. Patient was getting diuresis. Normal sinus rhythm. On Levophed. Getting some GDM T hydralazine. We will hold blood pressure medications in attempts to wean off Levophed. CPAP trial tomorrow. CV pressure to be inserted to help us coordinate diuresis. She appears no pedal edema, distant breath sounds. JVP can not assess due to neck habitus. We will need CVP to monitor. Continue diuresis for today. Creatinine stable. CPAP trial tomorrow. echo today Reviewed: H&P Changes from previous H/P or p: No Changes General: Per HPI Objective Vitals Vital Signs Date Time Temp Pulse Resp B/P (MAP) Pulse Ox O2 Delivery O2 Flow Rate FiO2 12/21/24 10:13 65 22 130/52 (78) 96 45 12/21/24 08:00 Mechanical Ventilator+ 12/21/24 03:45 99.3 99.3 Intake/Output Intake and Output 12/21/24 07:00 Intake Total 2870.77 ml Output Total 3400 ml Balance -529.23 ml Intake Oral 480 ml IV Total 1740.77 ml Tube Feeding 650 ml Output Urine Total 3400 ml # Bowel Movements 3 Exam Constitutional: Patient was morbidly obese, sedated and mechanically ventilated with RASS -4 Gen - no pallor, no icterus, no cyanosis, no clubbing, no LAD, trace edema. Skin - Patients skin is warm and dry. HEENT - normocephalic, atraumatic, moist mucous membranes. Neck - full ROM, no LAD, JVD could not be assessed. Pulmonary - B/L diminished breath sounds with inspiratory crackles, no wheezing cardiovascular - variable S1,S2 heard, no added sounds, no murmurs heard. GI - obese, soft abdomen, large area of dark discoloration below the umbilicus Neurological - currently mechanically ventilated, RASS -4, gag reflex present, pupils equal and reactive Medications Current Medications Medications Dose Ordered Sig/Julito Route Start Time Stop Time Status Last Admin Dose Admin Propofol 100 ml @ 4.08 mls/hr Q24H IV 12/15/24 05:15 12/21/24 08:15 40.8 MLS/HR Diagnostic Test (Pha) 1 strip Q6HR 12/15/24 12:00 12/21/24 05:58 1 STRIP Insulin Human Regular Q6HR SC 12/15/24 12:00 12/21/24 05:59 2 UNITS Dextrose 50 ml UD PRN IV 12/15/24 07:00 Acetaminophen 650 mg Q6HP PRN GT 12/15/24 13:00 12/15/24 13:21 650 MG Fentanyl Citrate 250 ml @ 2.5 mls/hr Q24H IV 12/16/24 11:15 12/21/24 02:36 22.5 MLS/HR Enteral Nutritional Formula 1,000 ml 40ML/HR GT 12/16/24 12:30 12/16/24 23:37 1,000 ML Mupirocin 1 applic BID EACHNOSTRI 12/16/24 22:00 12/21/24 21:59 12/20/24 21:54 1 APPLIC Enoxaparin Sodium 150 mg Q12HR SC 12/16/24 22:00 12/20/24 22:06 150 MG Ipratropium [place] 0.5 mg Q6HR NEB 12/17/24 00:00 12/21/24 06:45 0.5 MG Albuterol 2.5 mg Q6HR NEB 12/17/24 00:00 12/21/24 06:45 2.5 MG Pantoprazole Sodium 40 mg DAILY IV 12/17/24 10:00 12/20/24 10:21 40 MG Meropenem 50 ml @ 17 mls/hr Q8HR IV 12/17/24 22:00 12/21/24 05:54 17 MLS/HR Bumetanide 2 mg BIDD IV 12/18/24 18:00 12/21/24 06:05 2 MG Norepinephrine Bitartrate 250 ml @ 3.75 mls/hr Q24H IV 12/18/24 19:30 12/20/24 15:47 3.75 MLS/HR Hydralazine HCl 50 mg TID PO 12/18/24 22:00 Isosorbide Dinitrate 20 mg TID PO 12/20/24 22:00 Purified Water 200 ml Q6HR GT 12/20/24 18:00 12/21/24 05:55 200 ML Linezolid 300 ml @ 150 mls/hr Q12HR IV 12/20/24 22:00 12/20/24 21:54 150 MLS/HR Laboratory Results Laboratory Tests 12/21/24 03:00 Chemistry Test 12/20/24 17:00 12/21/24 03:00 Magnesium Level 2.3 mg/dL (1.6-2.6) Calcium Level 9.5 mg/dL (8.7-10.4) Urinalysis Test 12/14/24 23:16 12/15/24 13:45 Urine WBC Clumps Present /hpf (None Seen) Urine Calcium Oxalate Crystals Few (None Seen) Urine Hyaline Casts Many /lpf (0 - 2) Urine Mucus Few (None Seen) Urine Color Light-yellow (Yellow) Urine Clarity Turbid (Clear) H Urine pH 6.5 (5.0-9.0) Urine Specific [place] 1.011 (1.001-1.035) Urine Protein Trace (Negative) H Urine Ketones Negative (Negative) Urine Blood Trace /uL (Negative) H Urine Nitrite Negative (Negative) Urine Bilirubin Negative (Negative) Urine Urobilinogen Normal mg/dL (Negative) Urine Leukocyte Esterase 3+ /uL (Negative) Urine RBC 4 /hpf (0 - 4) Urine Microscopic WBC 39 /HPF (0-5) H Urine Squamous Epithelial Cells Few /hpf (<5) Urine Bacteria Many /hpf (None Seen) H Urine Creatinine 51.30 mg/dL (30.0-125.0) Urine Protein/Creatinine Ratio 0.67 Urine Sodium 16 mmol/L (40-220) L Urine Glucose Normal mg/dL (Normal) Urine Total Protein 34.5 mg/dL (1-14) H Blood Gas Results Test 12/21/24 07:10 Arterial Blood pH 7.412 (7.350-7.450) FiO2 % 45.0 Microbiology Microbiology Date/Time Source Procedure Growth Status 12/16/24 13:20 Blood Blood Culture - Preliminary NO GROWTH AFTER 72 HOURS OF INCUBATION. Resulted 12/15/24 13:45 Urine - Gee Port Urine Culture - Final Escherichia coli - ESBL Complete 12/15/24 11:44 Nose MRSA Screen - Final Methicillin Resistant S.aureus Complete 12/15/24 02:21 Sputum Gram Stain - Final Complete 12/15/24 02:21 Respiratory Culture - Final Pseudomonas aeruginosa Methicillin Resistant S.aureus Complete Labs and/or images reviewed: Labs reviewed by me, Image(s) reviewed by me Assessment/Plan Assessment/Plan 12/21 patient was admitted for COPD exacerbation hypercapnia also FF acute volume overload CHF exacerbation. Patient was getting diuresis. Normal sinus rhythm. On Levophed. Getting some GDM T hydralazine. We will hold blood pressure medications in attempts to wean off Levophed. CPAP trial tomorrow. CV pressure to be inserted to help us coordinate diuresis. She appears no pedal edema, distant breath sounds. JVP can not assess due to neck habitus. We will need CVP to monitor. Continue diuresis for today. Creatinine stable. CPAP trial tomorrow. echo today Neurology Acute metabolic encephalopathy likely due to hypercapnia - on mechanical ventilation - morning ABG mild metabolic alkalosis with resp compensation Respiratory Acute on chronic hypoxic/hypercarbic respiratory failure likely due to COPD/LAZARA/OHS On mechanical ventilation Sepsis likely due to pneumonia Pneumonia likely due to Gram +/- bacteria Pulmonary edema - on ventilator - sputum cultures growing MRSA and pseudomonas - IV meropenam and linezolid - bumex 2mg bid - diuresis to be increased for a net negative balance of -1.5 to -2 L per day Cardiovascular Acute on chronic heart failure with reduced ejection fraction Pulmonary edema likely due to above Hypertensive heart disease with heart failure Bradycardia with AV block, junctional rhythm, resolved H/o atrial fibrillation - ECG showed bradycardia with prolonged [place] interval - on Bumex - HOLD hydralazine 50 mg t.i.d. and isosorbide dinitrate 20 mg t.i.d. - on enoxaparin therapeutic dose Nephrology VIVI on CKD likely prerenal due to VMN - FENa < 1% - BUN and creatinine improving Endocrinology Insulin-dependent type 2 diabetes mellitus with hyperglycemia - on insulin sliding scale - on Glucerna at 40 mL/hour Infectious disease Sepsis likely due to pneumonia/UTI UTI with long-term indwelling Gee catheter, with ESBL E.coli present on admission MRSA nares positive - urine culture shows ESBL E.Coli - respiratory culture pending - blood cultures showed growth of staph epidermidis which could be a contaminant, repeated cultures - on IV Meropenam - mupirocin ointment Diet: Glucerna at 40 mL/hour via NG PUD prophylaxis: Protonix DVT prophylaxis: Enoxaparin Left IJV TLC inserted on 12/15 Gee's catheter inserted on 12/16 Plan discussed with: Other My Orders Orders - BALWINDER TODD MD Procedure Category Date Status Time Potassium Chl PHA 12/21/24 In Process 20meq/50ml (Potassium 10:15 Continuous Monitoring TORRES 12/21/24 In Process Of Cvp,P 09:56 Date of Service: Dec 21, 2024 Billing Provider: BALWINDER TODD MD Common Visit Codes: 54624-DEGWBSMH CARE 30-74 MIN BALWINDER TODD MD Dec 21, 2024 10:39
[2024-12-21] MEDS: OPTISON 3ml Vial for INJ IV ONE (11:03)
--- NOTE | 2024-12-21 19:24 | DVHSR ---
APPROVED REPORT EXAM: LIMITED Two-dimensional echocardiogram with optison. Blood Pressure: 139/49 mmHg INDICATION Pulmonary Edema ?HFREF RISK FACTORS Obesity: Height: 5' 6", Weight: 395 DIMENSIONS LVDd5.5 (3.8-5.7cm)LA (2D)4.6 (1.9-4.0cm)Aortic Root (2.0-3.7cm) LVDs3.7 (2.5-4.0cm)LA (MM) (1.9-4.0cm)Aortic Cusp Exc (1.5-2.0cm) EF (%) 60.0 (55-70%)Rt. Atrium4.2 (1.9-4.0cm)Asc. Aorta cm IVSd1.3 (0.7-1.1cm)RV (D) (1.8-2.4cm) PWd1.3 (0.7-1.1cm) Mitral Valve MitralMitral Stenosis E wave1.00m/sMV Mean GR.mmHg A wave1.30m/sMV Peak GR.mmHg E/A ratio0.82D MVAcm2 Tricuspid Valve TR Velocity2.40m/s [id number] Other Information Quality : Technically LimitedRhythm : Technically limited study due to body habitus. Conclusion MODERATE DEGREE LVH AND MODERATE DEGREE LV DIASTOLIC DYSFUNCTION LV EF IS 60% AND IS NORMAL MODERATELY DILATED LA MODERATE DEGREE MR MODERATELY DILATED AND HYPOKINETIC RV ASSOCIATED DYSKINESIS OF IVS CONSISTENT WITH MAJOR RV FAIL URE MODERATE DEGREE MITRAL ANNULAR CALCIFICATION NORMAL TV AORTIC VALVE NOT WELL SEEN BUT APPEAR GROSSLY NORMAL NO EFFUSION CONCLUSION MODERATE DEGRR LV DIASTOLIC DYSFUNCTION SEVERE RIGHT VENTRICULAR FAILURE
--- NOTE | 2024-12-21 19:46 | DVHPN2 ---
Progress Note - Dictate Date Seen: Dec 21, 2024 Medical Necessity Reason Pt with a Central, PICC or Fol: Yes The following are medically ne: Gee Catheter Subjective Patient was seen and evaluated in follow up in the ICU. Patient is intubated and sedated on ventilator. FiO2 was increased to 45%. Patient is planned for CPAP trial tomorrow. HGB 9.3, HCT 30.3, NA 149, K 3.4, CO2 33, BUN 32, COATING AND BAKING OPERATOR 1.15. Chest x-ray showed there is cardiomegaly. Probable small to moderate bilateral pleural effusions. Moderate pulmonary vascular congestion. vital signs Vital Sign Date Time Temp Pulse Resp B/P (MAP) Pulse Ox O2 Delivery O2 Flow Rate FiO2 12/21/24 13:06 126/46 12/21/24 11:39 65 22 97 45 12/21/24 08:00 Mechanical Ventilator+ 12/21/24 03:45 99.3 99.3 Total Intake and Output 12/20/24 12/20/24 12/21/24 15:00 23:00 07:00 Intake Total 586.32 ml 1128.05 ml 1156.40 ml Output Total 1400 ml 2000 ml Balance 586.32 ml -271.95 ml -843.60 ml medications Current Medications Medications Dose Ordered Sig/Julito Route Start Time Stop Time Status Last Admin Dose Admin Propofol 100 ml @ 4.08 mls/hr Q24H IV 12/15/24 05:15 12/21/24 12:45 40.8 MLS/HR Diagnostic Test (Pha) 1 strip Q6HR 12/15/24 12:00 12/21/24 12:57 1 STRIP Insulin Human Regular Q6HR SC 12/15/24 12:00 12/21/24 12:57 2 UNITS Dextrose 50 ml UD PRN IV 12/15/24 07:00 Acetaminophen 650 mg Q6HP PRN GT 12/15/24 13:00 12/15/24 13:21 650 MG Fentanyl Citrate 250 ml @ 2.5 mls/hr Q24H IV 12/16/24 11:15 12/21/24 13:06 25 MLS/HR Enteral Nutritional Formula 1,000 ml 40ML/HR GT 12/16/24 12:30 12/16/24 23:37 1,000 ML Mupirocin 1 applic BID EACHNOSTRI 12/16/24 22:00 12/21/24 21:59 12/21/24 12:46 1 APPLIC Enoxaparin Sodium 150 mg Q12HR SC 12/16/24 22:00 12/21/24 11:19 150 MG Ipratropium [place] 0.5 mg Q6HR NEB 12/17/24 00:00 12/21/24 11:39 0.5 MG Albuterol 2.5 mg Q6HR NEB 12/17/24 00:00 12/21/24 11:39 2.5 MG Pantoprazole Sodium 40 mg DAILY IV 12/17/24 10:00 12/21/24 11:20 40 MG Meropenem 50 ml @ 17 mls/hr Q8HR IV 12/17/24 22:00 12/21/24 05:54 17 MLS/HR Bumetanide 2 mg BIDD IV 12/18/24 18:00 12/21/24 06:05 2 MG Norepinephrine Bitartrate 250 ml @ 3.75 mls/hr Q24H IV 12/18/24 19:30 12/20/24 15:47 3.75 MLS/HR Hydralazine HCl 50 mg TID PO 12/18/24 22:00 Isosorbide Dinitrate 20 mg TID PO 12/20/24 22:00 Purified Water 200 ml Q6HR GT 12/20/24 18:00 12/21/24 12:46 200 ML Linezolid 300 ml @ 150 mls/hr Q12HR IV 12/20/24 22:00 12/21/24 11:21 150 MLS/HR objective GENERAL: Intubated on ventilator. Morbidly obese . EYES: PERRL, EOMI. Anicteric. HENT: Moist mucous membranes. LUNGS: Decreased all breath sounds. CARDIOVASCULAR: Regular rate and rhythm. ABDOMEN: Soft, nontender and nondistended. EXTREMITIES: No edema. SKIN: Warm, dry. laboratory and microbiology Laboratory Tests 12/21/24 03:00 Test 12/21/24 03:00 Range/Units Serum Glucose 137 H 74-106 mg/dL Problem List Accidental medication overdose. Acute encephalopathy. Acute respiratory failure. Respiratory acidosis. Right pleural effusion. Leukocytosis Chest pain. Bradycardia. CHF. CAD. Acute renal failure Hyperkalemia. UTI. DM type 2. Hypertension. Morbid obesity. History of CVA. Assessment/Plan Continued all current supportive medical care. Diuretics with Bumex. DVT and GI prophylactics. IV Hydralazine for SBP >150. IV antibiotics as ordered. Vasopressors for hemodynamic support. Additional plan as per the hospital course. Critical care time of 45 minutes provided to include time spent evaluation of patient at bedside, when appropriate patient/family education for diagnosis, treatment plan, review of pertinent medical information and discussion of care with specialty providers and PCP. Mechanical ventilator parameters, treatment and adjustments have personally been reviewed by me and treatment plan by sweatband drummer has also been reviewed. Dietary Evaluation Review Comments: 1. Pt is on fat energy support through Propofol of 860 kca, the TF needs to be a low fat, high proteiin formula. Suggest using Vital High Protein @45ml/hr, in 24 hr, pt will receive 1080 kca, 94 g protein, This formula will satisfy pt's protein neeeds at 79% and energy needs at 79% including the 860 kcal provided by Propofol running at 32.6ml/hr. Expected Outcomes/Goals: 1. Reassess protein and energy needs when pt is off vent, based on her true weight without fluid retention and possibably an improved kideny function, 2. [facility] with updated protein and energy needs, when medically feasible providing that she passes a GUN SYNCHRONIZER eval. Plan discussed with: FRANTZ Leyva MD Dec 21, 2024 13:14
--- NOTE | 2024-12-21 21:45 | DVHINCON2 ---
Date of service: Dec 21, 2024 Referring Physician Wilfredo Maddox MD Reason for Consultation Acute hypoxic respiratory failure requiring mechanical ventilator History of Present Illness A 59 year old woman with a past medical history of hypertension, diabetes, CVA, CHF and IA who was brought in by EMS to ED on 12/14/24 due to chest pain w/ associated SOB, altered mental status and bradycardia - possible medication overdose. Patient is morbidly obese and wheelchair bound. Family reported that patient may have taken a double dose of one of her medications, unknown which medication. Patient is on Xanax, [place], amiodarone, beta-latrice, potassium. Limited HPI - patient was confused, agitated and uncooperative. Per family, patient normally is alert and oriented x3, no confusion. Patient continued to be restless and agitated. K 6.3, BUN 74, Concrete Bucket Loader 3.04, LA 2.8, GLUC 281. Troponin is negative. BNP 298. Chest x-ray showed cardiomegaly, bibasilar atelectasis. EKG showed bradycardia. Patient was intubated in ED due to AHRF w/ respiratory distress and concern for inability to protect airway. Pulmonary consultation is requested for evaluation and management due to the above findings. Review of Systems: Unable to obtain d/t intubated status Past Medical History: Hypertension, diabetes, CVA, CHF and IA Past Surgical History: None Medications: Reviewed. Allergies: No known drug allergies. Family History: No family history of premature CAD. No family history of lung disorders. Social History: Nonsmoker. No alcohol or illicit drug use. Family History: Patient reports no known family medical history. Allergies: Coded Allergies: NO KNOWN ALLERGIES (Unverified , 12/14/24) Home Meds Reported Medications Meclizine Hcl (Meclizine Hcl) 25 Mg Tab, 25 MG PO BIDP PRN for DIZZINESS for 30 Days, MG 12/16/24 Atorvastatin Calcium (Lipitor) 40 Mg Tab, 40 MG PO, TAB 12/16/24 Prednisone (Prednisone) 20 Mg Tab, 1 TAB PO DAILY 12/16/24 Rivaroxaban (Xarelto Tablet) 20 Mg Tb, 1 TAB PO DAILY 12/15/24 Losartan Potassium (Losartan Potassium) 50 Mg Tab, 1 TAB PO BID 12/15/24 Baclofen (Baclofen) 10 Mg Tab, 1 TAB PO BID 12/15/24 Furosemide (Furosemide) 80 Mg Tab, 1 TAB PO BID 12/15/24 Alprazolam (Alprazolam) 0.5 Mg Tab, 1 TAB PO QID PRN for ANXIETY 12/15/24 Metoprolol Succinate (Metoprolol Succinate Er) 100 Mg Tab, 1 TAB PO DAILY 12/15/24 Hydroxyzine Hcl (Hydroxyzine Hcl) 25 Mg Tab, 1 TAB PO BID 12/15/24 Amiodarone HCl (Amiodarone HCl) 200 Mg Tab, 1 TAB PO BID 12/15/24 Ondansetron HCl (Ondansetron Hydrochloride) 4 Mg Tab, 2 PO BID 12/15/24 Aspirin (Aspirin Low Dose) 81 Mg Tab, 1 TAB PO DAILY 12/15/24 Current Medications Current Medications Medications (Trade) Dose Ordered Sig/Julito Route PRN Reason Start Time Stop Time Status Last Admin Isosorbide Dinitrate (Isordil Tablet) 20 mg TID PO 12/20/24 22:00 Linezolid 300 ml @ 150 mls/hr Q12HR IV 12/20/24 22:00 12/21/24 11:21 Vital Signs Vital Signs Date Time Temp Pulse Resp B/P (MAP) Pulse Ox O2 Delivery O2 Flow Rate FiO2 12/21/24 20:30 67 22 104/45 (64) 92 12/21/24 20:10 40 12/21/24 20:00 98.2 98.2 12/21/24 20:00 Mechanical Ventilator+ Physical Exam Gen.: Patient lying in bed in medical ICU. Sedated, intubated on mechanical ventilator. Head: Normocephalic, atraumatic. Eyes: PERRLA. Ears: Normal external anatomy. Throat: Endotracheal tube and orogastric tube in place. Neck: Supple, trachea midline. Chest: Transmitted breath sounds bilaterally. Decreased air entry bilaterally. No wheezing. Bibasilar crackles. Cardiovascular: Positive S1, positive S2. Regular rate and rhythm. Abdomen: Positive bowel sounds in all 4 quadrants. Soft, nontender, nondistended. : Gee in place. Normal external genitalia. Rectal: Deferred. Skin: Warm, dry. Intact. Extremities: 2+ radial pulses bilaterally. No lower extremity edema. Neuro: Sedated. Labs/Diagnostic Data Labs Test 12/21/24 17:44 12/21/24 07:10 12/21/24 03:00 12/20/24 17:00 Range/Units POC Glucose 139 H 70-106 mg/dl Blood Gas Specimen Type Arterial Blood Gas Sample Site Right radial Blood Gas Patient Temperature 37.0 Arterial Blood Date Drawn [id number] Arterial Blood pH 7.412 7.350-7.450 Arterial Blood Partial Pressure CO2 52.4 H 32.0-45.0 mmHg Arterial Blood Partial Pressure O2 83.8 83.0-108.0 mmHg Arterial Blood HCO3 32.6 H 21.0-28.0 mmol/L Arterial Blood Oxygen Saturation 95.4 94.0-98.0 % Arterial Blood Base Excess 7.1 H -2.0-3.0 mmol/L Arterial Blood Oxyhemoglobin 94.8 94.0-98.0 % Arterial Blood Carboxyhemoglobin 0.3 L 0.5-1.5 % Arterial Blood Methemoglobin 0.3 0.0-1.5 % Alverto Test Modified Blood Gas Total Hemoglobin 8.70 L 12.0-16.0 g/dL Blood Gas Set Respiration Rate 22.0 Blood Gas Modality Vent - ac FiO2 % 45.0 Blood Gas Tidal Volume 450.0 Blood Gas PEEP or CPAP 5.0 White Blood Count 8.7 4.4-10.8 10^3/uL Red Blood Count 3.77 L 4.0-5.20 10^6/uL Hemoglobin 9.3 L 12.2-16.2 g/dL Hematocrit 30.3 L 36.0-46.0 % Mean Corpuscular Volume 80.3 80.0-100.0 fL Mean Corpuscular Hemoglobin 24.6 L 28.0-32.0 pg Mean Corpuscular Hemoglobin Concent 30.6 L 32.0-36.0 g/dL Red Cell Distribution Width 18.8 H 11.8-14.3 % Platelet Count 357 140-450 10^3/uL Mean Platelet Volume 7.9 6.9-10.8 fL Neutrophils (%) (Auto) 65.0 37.0-80.0 % Lymphocytes (%) (Auto) 13.1 10.0-50.0 % Monocytes (%) (Auto) 10.2 0.0-12.0 % Eosinophils (%) (Auto) 11.0 H 0.0-7.0 % Basophils (%) (Auto) 0.7 0.0-2.0 % Neutrophils # (Auto) 5.7 1.6-8.6 10 ^3/uL Lymphocytes # (Auto) 1.1 0.4-5.4 10 ^3/uL Monocytes # (Auto) 0.9 0-1.3 10 ^3/uL Eosinophils # (Auto) 1.0 H 0-0.8 10 ^3/uL Basophils # (Auto) 0.1 0-0.2 10 ^3/uL Nucleated Red Blood Cells 0.3 % Sodium Level 149 H 136-145 mmol/L Potassium Level 3.4 L 3.5-5.1 mmol/L Chloride Level 106 98-107 mmol/L Carbon Dioxide Level 33 H 20-31 mmol/L Anion Gap 10 5-15 Blood Urea Nitrogen 32 H 9-23 mg/dL Creatinine 1.15 H 0.550-1.02 mg/dL Glomerular Filtration Rate Calc 54 >90 mL/min BUN/Creatinine Ratio 27.8 H 10.0-20.0 Serum Glucose 137 H 74-106 mg/dL Calcium Level 9.5 8.7-10.4 mg/dL Magnesium Level 2.3 1.6-2.6 mg/dL Test 12/16/24 19:25 12/16/24 03:15 12/15/24 14:00 12/15/24 13:45 Range/Units Blood Gas Spontaneous Rate 26 Blood Gas Spontaneous Tidal Volume 436 Blood Gas Inspiratory Pressure 23.0 Bl Gas Inspiratory/Expiratory Ratio 1:1.4 Total Bilirubin 0.3 0.2-1.0 mg/dL Aspartate Amino Transferase (AST) 18 13-40 U/L Alanine Aminotransferase (ALT) 31 7-40 U/L Alkaline Phosphatase 74 46-116 U/L Total Protein 6.8 5.7-8.2 g/dL Albumin 4.0 3.2-4.8 g/dL Hemoglobin A1c 7.2 H <5.7 % A1C Phosphorus Level 4.7 2.4-5.1 mg/dL Vitamin D 25-Hydroxy 32.0 30.0-100 ng/mL Parathyroid Hormone (Intact) 232.6 H 18.4-80.1 pg/mL Urine Color Light-yellow Yellow Urine Clarity Turbid H Clear Urine pH 6.5 5.0-9.0 Urine Specific [place] 1.011 1.001-1.035 Urine Protein Trace H Negative Urine Ketones Negative Negative Urine Blood Trace H Negative /uL Urine Nitrite Negative Negative Urine Bilirubin Negative Negative Urine Urobilinogen Normal Negative mg/dL Urine Leukocyte Esterase 3+ Negative /uL Urine RBC 4 0 - 4 /hpf Urine Microscopic WBC 39 H 0-5 /HPF Urine Squamous Epithelial Cells Few <5 /hpf Urine Bacteria Many H None Seen /hpf Urine Creatinine 51.30 30.0-125.0 mg/dL Urine Protein/Creatinine Ratio 0.67 Urine Sodium 16 L 40-220 mmol/L Urine Glucose Normal Normal mg/dL Urine Total Protein 34.5 H 1-14 mg/dL Test 12/15/24 07:10 12/15/24 00:52 12/14/24 23:23 12/14/24 23:16 Range/Units Triglycerides Level 95 < 150 mg/dL Cholesterol Level 129 < 200 mg/dL LDL Cholesterol 47 < 100 mg/dL HDL Cholesterol 60 H 40-59 mg/dL Thyroid Stimulating Hormone (TSH) 1.50 0.55-4.78 uIU/mL Blood Gas Liter Flow 60.00 Blood Gas Critical Value Read Back Yes Blood Gas Notified Whom kisha Jacobson md Blood Gas Notified Time [id number] Blood Gas Notified By gonzalez Maurer rrt Prothrombin Time 12.8 H 9.3-11.8 sec Prothrombin Time INR 1.23 H 0.9-1.15 Troponin I High Sensitivity 12 </=34 ng/L Urine WBC Clumps Present None Seen /hpf Urine Calcium Oxalate Crystals Few None Seen Urine Hyaline Casts Many 0 - 2 /lpf Urine Mucus Few None Seen Urine Opiates Screen Pos NEGATIVE Urine Fentanyl Screen Pos NEGATIVE Urine Barbiturates Screen Neg NEGATIVE Urine Phencyclidine Screen Neg NEGATIVE Urine Amphetamines Screen Neg NEGATIVE Urine Benzodiazepines Screen Pos NEGATIVE Urine Cocaine Screen Neg NEGATIVE Urine Cannabinoids Screen Neg NEGATIVE Test 12/14/24 21:21 12/14/24 19:23 Range/Units Lactic Acid Level 0.8 0.4-2.0 mmol/L Creatine Kinase 84 34-145 U/L B-Type Natriuretic Peptide 298.73 0-100 pg/mL Lipase 39 12-53 U/L Salicylates Level < 3.0 -30 mg/dL Acetaminophen Level < 2.0 L 10.0-20.0 UG/ML Microbiology Date/Time Source Procedure Growth Status 12/16/24 13:20 Blood Blood Culture - Final NO GROWTH AFTER 5 DAYS OF INCUBATION. Complete 12/15/24 13:45 Urine - Gee Port Urine Culture - Final Escherichia coli - ESBL Complete 12/15/24 11:44 Nose MRSA Screen - Final Methicillin Resistant S.aureus Complete 12/15/24 02:21 Sputum Gram Stain - Final Complete 12/15/24 02:21 Respiratory Culture - Final Pseudomonas aeruginosa Methicillin Resistant S.aureus Complete Assessment Impression: Acute hypoxic respiratory failure On mechanical ventilator Metabolic encephalopathy. Pneumonia Pulmonary edema Congestive heart failure Coronary artery disease. Acute renal failure Morbid obesity. Plan: s/p intubation on mechanical ventilator. CXR image and report reviewed. Devices in place. Small to moderate bilateral pleural effusions. Moderate pulmonary vascular congestion. No pneumothorax. ABG reviewed, compensated. On AC mode; RR 22, VT 450, PEEP 5, FiO2 40% Titrate FIO2 to keep O2 saturation above 90%. VAP bundle. Daily ABG and CXR while intubated Sedate for ventilator synchrony - on Propofol, Fentanyl Continue bronchodilators. Continue antibiotics. F/u cultures. On pressors for hemodynamic support Levophed 2 mcg/min Titrate to keep mean arterial pressure greater than 65 mmHg. Tube feeds for nutritional support Monitor renal function Monitor electrolytes. Supplement as necessary. Monitor ins and outs. Maintain euvolemia. Diet and lifestyle modifications for weight reduction Morbid Obesity - complicates all care Taper sedation as tolerated Start Precedex CPAP in the AM - PS 8, PEEP 5. GI prophylaxis. DVT prophylaxis. Prognosis: Poor given patient's multiple co-morbidities. Condition: Critical Rest of plan per hospitalist and other consultants. A total of 35 minutes of critical care time was spent reviewing the patient record, examining the patient, making a diagnostic and therapeutic plan, discussing this plan with the medical personnel, following up on diagnostic studies and following the patient for clinical stability excluding any and all procedures. At least 50% of this time was spent in direct, [id number] contact . Thank you Dr. Maddox, for allowing me to participate in this patient's care. Further recommendations will depend on the patient's clinical course. Please do not hesitate to contact me if you have any questions or concerns. This medical document was created using an electronic medical record system with [employer] system. Although these documentations are being carefully reviewed, there may still be some phonetic and typographical changes. The errors are purely typographical, due to imperfection on the software program, and do not reflect any compromise in the patient's medical care. Plan discussed with: Other (SUKHWINDER Resendiz/Dr. Maddox) SKYLA HUDDLESTON MD Dec 21, 2024 21:45
[2024-12-22] VITALS (107 sets, daily range): BP systolic 101–172; BP diastolic 44–71; PULSE 62–93; RESP 9–26; TEMP 98.6–99.8; O2SAT 89–100
[2024-12-22 04:02] LABS: Basophils # (auto) 0 10 ^3/uL (0-0.2); Basophils % (auto) 0.4 % (0.0-2.0); Eosinophils # (auto) 0.8 10 ^3/uL (0-0.8); Hemoglobin 9.5 g/dL (12.2-16.2); Mean Corpuscular Hgb Conc. 31.2 g/dL (32.0-36.0); Monocytes # (auto) 0.8 10 ^3/uL (0-1.3)
[2024-12-22 04:10] LABS: Hematocrit 30.5 % (36.0-46.0); Lymphocytes # (auto) 1.1 10 ^3/uL (0.4-5.4); Lymphocytes % (auto) 16.2 % (10.0-50.0); Mean Corpuscular Hemoglobin 24.6 pg (28.0-32.0); Mean Corpuscular Volume 78.8 fL (80.0-100.0); Neutrophils # (auto) 4.1 10 ^3/uL (1.6-8.6); Neutrophils % (auto) 59.4 % (37.0-80.0); Nucleated Red Blood Cells % 0.4 %; Platelet Count (auto) 360 10^3/uL (140-450); Red Blood Cells 3.88 10^6/uL (4.0-5.20); Red Cell Distribution Width 18.8 % (11.8-14.3); White Blood Cell 6.9 10^3/uL (4.4-10.8)
[2024-12-22 04:15] LABS: Anion Gap 7 (5-15); Carbon Dioxide 34 mmol/L (20-31); Chloride 106 mmol/L (98-107); Potassium 3.7 mmol/L (3.5-5.1); Sodium 147 mmol/L (136-145)
[2024-12-22 04:16] LABS: Calcium 9.4 mg/dL (8.7-10.4)
[2024-12-22 04:21] LABS: Blood Urea Nitrogen 28 mg/dL (9-23); Glucose 143 mg/dL (74-106)
[2024-12-22] MEDS: DEXMEDETOMIDINE HCL IN D5W 100 ML IV SCH (05:27)
--- NOTE | 2024-12-22 05:52 | DVH ---
CHEST RADIOGRAPH Indication: PROTOCOL Technique: Single frontal view of the chest was obtained COMPARISON: XY CHEST XRAY 1 VIEW on DOS: 12/21/24, XY CHEST XRAY 1 VIEW on DOS: 12/20/24, XY CHEST XRAY 1 VIEW on DOS: 12/19/24, XY CHEST XRAY 1 VIEW on DOS: 12/18/24, XY CHEST XRAY 1 VIEW on DOS: 12/17/24 FINDINGS: Lines and Tubes: Unchanged. Lungs: Stable appearing bilateral lower lung zone pulmonary airspace disease and probable pleural eff usions. No pneumothorax. Cardiomediastinal contours: Stable cardiomegaly. Bones: Unremarkable IMPRESSION: 1. Stable appearing bilateral lower lung zone pulmonary airspace disease and probable pleural effusio ns. 2. Stable cardiomegaly. 3. Lines and tubes unchanged.
[2024-12-22 07:03] LABS: Base Excess 8.9 mmol/L (-2.0-3.0)
--- NOTE | 2024-12-22 09:54 | DVHPN2 ---
Subjective Update 12/22 12/21 - patient was admitted for COPD exacerbation hypercapnia also FF acute volume overload CHF exacerbation. Patient was getting diuresis. Normal sinus rhythm. On Levophed. Getting some GDM T hydralazine. We will hold blood pressure medications in attempts to wean off Levophed. CPAP trial tomorrow. CV pressure to be inserted to help us coordinate diuresis. She appears no pedal edema, distant breath sounds. JVP can not assess due to neck habitus. We will need CVP to monitor. Continue diuresis for today. Creatinine stable. CPAP trial tomorrow. echo today 12/22 - doing well today. sed vac and following commands. cpap trial, some parameters looking good NIF RSBI, low VC?. will follow-up with RT. cxr looks unchanged. RT com with pulm. will aim goal to extube today. cvp inserted yest and cvp is 5. will decrease bumex to once daily 2mg. if extube, will go to bipap for 1-2 hrs, then nightly bipap 08/08. primary team to f/u toomorrow. otherwise CPT. PT to start tomorrow likely, again defer to primary team. . Reviewed: H&P Changes from previous H/P or p: No Changes General: Per HPI Objective Vitals Vital Signs Date Time Temp Pulse Resp B/P (MAP) Pulse Ox O2 Delivery O2 Flow Rate FiO2 12/22/24 08:41 79 24 111/66 (81) 94 40 12/22/24 08:00 98.6 98.6 12/22/24 08:00 Mechanical Ventilator+ Intake/Output Intake and Output 12/22/24 07:00 Intake Total 3641.675 ml Output Total 2400 ml Balance 1241.675 ml Intake Oral 800 ml IV Total 2263.675 ml Tube Feeding 578 ml Output Urine Total 2400 ml # Bowel Movements 1 Exam Constitutional: Patient was morbidly obese, sedated and mechanically ventilated with RASS -4 Gen - no pallor, no icterus, no cyanosis, no clubbing, no LAD, trace edema. Skin - Patients skin is warm and dry. HEENT - normocephalic, atraumatic, moist mucous membranes. Neck - full ROM, no LAD, JVD could not be assessed. Pulmonary - B/L diminished breath sounds with inspiratory crackles, no wheezing cardiovascular - variable S1,S2 heard, no added sounds, no murmurs heard. GI - obese, soft abdomen, large area of dark discoloration below the umbilicus Neurological - currently mechanically ventilated, RASS -4, gag reflex present, pupils equal and reactive Medications Current Medications Medications Dose Ordered Sig/Julito Route Start Time Stop Time Status Last Admin Dose Admin Propofol 100 ml @ 4.08 mls/hr Q24H IV 12/15/24 05:15 12/22/24 06:31 40.8 MLS/HR Diagnostic Test (Pha) 1 strip Q6HR 12/15/24 12:00 12/22/24 05:18 1 STRIP Insulin Human Regular Q6HR SC 12/15/24 12:00 12/22/24 05:22 2 UNITS Dextrose 50 ml UD PRN IV 12/15/24 07:00 Acetaminophen 650 mg Q6HP PRN GT 12/15/24 13:00 12/15/24 13:21 650 MG Fentanyl Citrate 250 ml @ 2.5 mls/hr Q24H IV 12/16/24 11:15 12/21/24 21:39 22.5 MLS/HR Enteral Nutritional Formula 1,000 ml 40ML/HR GT 12/16/24 12:30 12/21/24 18:27 1,000 ML Enoxaparin Sodium 150 mg Q12HR SC 12/16/24 22:00 12/21/24 21:47 150 MG Ipratropium [place] 0.5 mg Q6HR NEB 12/17/24 00:00 12/22/24 05:58 0.5 MG Albuterol 2.5 mg Q6HR NEB 12/17/24 00:00 12/22/24 05:58 2.5 MG Pantoprazole Sodium 40 mg DAILY IV 12/17/24 10:00 12/21/24 11:20 40 MG Meropenem 50 ml @ 17 mls/hr Q8HR IV 12/17/24 22:00 12/22/24 05:19 17 MLS/HR Bumetanide 2 mg BIDD IV 12/18/24 18:00 12/22/24 05:26 2 MG Norepinephrine Bitartrate 250 ml @ 3.75 mls/hr Q24H IV 12/18/24 19:30 12/20/24 15:47 3.75 MLS/HR Hydralazine HCl 50 mg TID PO 12/18/24 22:00 Isosorbide Dinitrate 20 mg TID PO 12/20/24 22:00 Purified Water 200 ml Q6HR GT 12/20/24 18:00 12/22/24 05:19 200 ML Linezolid 300 ml @ 150 mls/hr Q12HR IV 12/20/24 22:00 12/21/24 21:40 150 MLS/HR Laboratory Results Laboratory Tests 12/22/24 03:00 Chemistry Test 12/22/24 03:00 Calcium Level 9.4 mg/dL (8.7-10.4) Urinalysis Test 12/14/24 23:16 12/15/24 13:45 Urine WBC Clumps Present /hpf (None Seen) Urine Calcium Oxalate Crystals Few (None Seen) Urine Hyaline Casts Many /lpf (0 - 2) Urine Mucus Few (None Seen) Urine Color Light-yellow (Yellow) Urine Clarity Turbid (Clear) H Urine pH 6.5 (5.0-9.0) Urine Specific [place] 1.011 (1.001-1.035) Urine Protein Trace (Negative) H Urine Ketones Negative (Negative) Urine Blood Trace /uL (Negative) H Urine Nitrite Negative (Negative) Urine Bilirubin Negative (Negative) Urine Urobilinogen Normal mg/dL (Negative) Urine Leukocyte Esterase 3+ /uL (Negative) Urine RBC 4 /hpf (0 - 4) Urine Microscopic WBC 39 /HPF (0-5) H Urine Squamous Epithelial Cells Few /hpf (<5) Urine Bacteria Many /hpf (None Seen) H Urine Creatinine 51.30 mg/dL (30.0-125.0) Urine Protein/Creatinine Ratio 0.67 Urine Sodium 16 mmol/L (40-220) L Urine Glucose Normal mg/dL (Normal) Urine Total Protein 34.5 mg/dL (1-14) H Blood Gas Results Test 12/22/24 06:31 Arterial Blood pH 7.414 (7.350-7.450) FiO2 % 40.0 Microbiology Microbiology Date/Time Source Procedure Growth Status 12/16/24 13:20 Blood Blood Culture - Final NO GROWTH AFTER 5 DAYS OF INCUBATION. Complete 12/15/24 13:45 Urine - [place] Urine Culture - Final Escherichia coli - ESBL Complete 12/15/24 11:44 Nose MRSA Screen - Final Methicillin Resistant S.aureus Complete 12/15/24 02:21 Sputum Gram Stain - Final Complete 12/15/24 02:21 Respiratory Culture - Final Pseudomonas aeruginosa Methicillin Resistant S.aureus Complete Labs and/or images reviewed: Labs reviewed by me, Image(s) reviewed by me Assessment/Plan Assessment/Plan 12/22 - doing well today. sed vac and following commands. cpap trial, some parameters looking good NIF RSBI, low VC?. will follow-up with RT. cxr looks unchanged. RT com with pulm. will aim goal to extube today. cvp inserted yest and cvp is 5. will decrease bumex to once daily 2mg. if extube, will go to bipap for 1-2 hrs, then nightly bipap 08/08. primary team to f/u toomorrow. otherwise CPT. PT to start tomorrow likely, again defer to primary team. Neurology Acute metabolic encephalopathy likely due to hypercapnia - on mechanical ventilation - morning ABG mild metabolic alkalosis with resp compensation Respiratory Acute on chronic hypoxic/hypercarbic respiratory failure likely due to COPD/LAZARA/OHS On mechanical ventilation Sepsis likely due to pneumonia Pneumonia likely due to Gram +/- bacteria Pulmonary edema - on ventilator - sputum cultures growing MRSA and pseudomonas - IV meropenam and linezolid - bumex 2mg qd - diuresis to be increased for a net negative balance of -1.5 to -2 L per day Cardiovascular Acute on chronic heart failure with reduced ejection fraction Pulmonary edema likely due to above Hypertensive heart disease with heart failure Bradycardia with AV block, junctional rhythm, resolved H/o atrial fibrillation - ECG showed bradycardia with prolonged AR interval - on Bumex - HOLD hydralazine 50 mg t.i.d. and isosorbide dinitrate 20 mg t.i.d. - on enoxaparin therapeutic dose Nephrology VIVI on CKD likely prerenal due to VMN - FENa < 1% - BUN and creatinine improving Endocrinology Insulin-dependent type 2 diabetes mellitus with hyperglycemia - on insulin sliding scale - on Glucerna at 40 mL/hour Infectious disease Sepsis likely due to pneumonia/UTI UTI with long-term indwelling Gee catheter, with ESBL E.coli present on admission MRSA nares positive - urine culture shows ESBL E.Coli - respiratory culture pending - blood cultures showed growth of staph epidermidis which could be a contaminant, repeated cultures - on IV Meropenam - mupirocin ointment Diet: Glucerna at 40 mL/hour via NG PUD prophylaxis: Protonix DVT prophylaxis: Enoxaparin Left IJV TLC inserted on 12/15 Gee's catheter inserted on 12/16 Plan discussed with: Other My Orders Orders - BALWINDER TODD MD Procedure Category Date Status Time Continuous Monitoring TORRES 12/21/24 In Process Of Cvp,P 09:56 Date of Service: Dec 22, 2024 Billing Provider: BALWINDER TODD MD Common Visit Codes: [id number] CARE 30-74 MIN BALWINDER TODD MD Dec 22, 2024 09:54
[2024-12-22 10:00] LABS: Base Excess 6.6 mmol/L (-2.0-3.0)
--- NOTE | 2024-12-22 22:05 | DVHPN2 ---
Progress Note - Dictate Date Seen: Dec 22, 2024 Medical Necessity Reason Pt with a Central, PICC or Fol: Yes The following are medically ne: Gee Catheter Subjective Patient was seen and evaluated in follow up in the ICU. Patient is intubated and sedated on ventilator. FiO2 was decreased to 40%. CPAP trial was terminated due to increased WOB. HGB 9.5, HCT 30.5, NA 147, CO2 34, BUN 28, WOOD FORM BUILDER 1.12. Chest x- ray is unchanged. vital signs Vital Sign Date Time Temp Pulse Resp B/P (MAP) Pulse Ox O2 Delivery O2 Flow Rate FiO2 12/22/24 12:15 93 9 159/67 (97) 95 12/22/24 12:00 99.0 99.0 12/22/24 12:00 Mechanical Ventilator+ 40 40 Total Intake and Output 12/21/24 12/21/24 12/22/24 15:00 23:00 07:00 Intake Total 903.40 ml 1670.40 ml 1067.875 ml Output Total 1100 ml 1300 ml Balance 903.40 ml 570.40 ml -232.125 ml medications Current Medications Medications Dose Ordered Sig/Julito Route Start Time Stop Time Status Last Admin Dose Admin Propofol 100 ml @ 4.08 mls/hr Q24H IV 12/15/24 05:15 12/22/24 06:31 40.8 MLS/HR Diagnostic Test (Pha) 1 strip Q6HR 12/15/24 12:00 12/22/24 11:33 1 STRIP Insulin Human Regular Q6HR SC 12/15/24 12:00 12/22/24 11:36 3 UNITS Dextrose 50 ml UD PRN IV 12/15/24 07:00 Acetaminophen 650 mg Q6HP PRN GT 12/15/24 13:00 12/15/24 13:21 650 MG Fentanyl Citrate 250 ml @ 2.5 mls/hr Q24H IV 12/16/24 11:15 12/21/24 21:39 22.5 MLS/HR Enteral Nutritional Formula 1,000 ml 40ML/HR GT 12/16/24 12:30 12/21/24 18:27 1,000 ML Enoxaparin Sodium 150 mg Q12HR SC 12/16/24 22:00 12/22/24 09:51 150 MG Ipratropium [place] 0.5 mg Q6HR NEB 12/17/24 00:00 12/22/24 12:02 0.5 MG Albuterol 2.5 mg Q6HR NEB 12/17/24 00:00 12/22/24 12:02 2.5 MG Pantoprazole Sodium 40 mg DAILY IV 12/17/24 10:00 12/22/24 09:51 40 MG Meropenem 50 ml @ 17 mls/hr Q8HR IV 12/17/24 22:00 12/22/24 13:36 17 MLS/HR Bumetanide 2 mg BIDD IV 12/18/24 18:00 12/22/24 05:26 2 MG Norepinephrine Bitartrate 250 ml @ 3.75 mls/hr Q24H IV 12/18/24 19:30 12/20/24 15:47 3.75 MLS/HR Hydralazine HCl 50 mg TID PO 12/18/24 22:00 Isosorbide Dinitrate 20 mg TID PO 12/20/24 22:00 Purified Water 200 ml Q6HR GT 12/20/24 18:00 12/22/24 05:19 200 ML Linezolid 300 ml @ 150 mls/hr Q12HR IV 12/20/24 22:00 12/22/24 09:50 150 MLS/HR objective GENERAL: Intubated on ventilator. Morbidly obese . EYES: PERRL, EOMI. Anicteric. HENT: Moist mucous membranes. LUNGS: Decreased all breath sounds. CARDIOVASCULAR: Regular rate and rhythm. ABDOMEN: Soft, nontender and nondistended. EXTREMITIES: No edema. SKIN: Warm, dry. laboratory and microbiology Laboratory Tests 12/22/24 03:00 Test 12/22/24 03:00 Range/Units Serum Glucose 143 H 74-106 mg/dL Problem List Accidental medication overdose. Acute encephalopathy. Acute respiratory failure. Respiratory acidosis. Right pleural effusion. Leukocytosis Chest pain. Bradycardia. CHF. CAD. Acute renal failure Hyperkalemia. UTI. DM type 2. Hypertension. Morbid obesity. History of CVA. Assessment/Plan Continued all current supportive medical care. Diuretics with Bumex. DVT and GI prophylactics. IV Hydralazine for SBP >150. IV antibiotics as ordered. Vasopressors for hemodynamic support. Additional plan as per the hospital course. Critical care time of 45 minutes provided to include time spent evaluation of patient at bedside, when appropriate patient/family education for diagnosis, treatment plan, review of pertinent medical information and discussion of care with specialty providers and PCP. Mechanical ventilator parameters, treatment and adjustments have personally been reviewed by me and treatment plan by forestry conservation worker has also been reviewed. Dietary Evaluation Review Comments: 1. Pt is on fat energy support through Propofol of 860 kca, the TF needs to be a low fat, high proteiin formula. Suggest using Vital High Protein @45ml/hr, in 24 hr, pt will receive 1080 kca, 94 g protein, This formula will satisfy pt's protein neeeds at 79% and energy needs at 79% including the 860 kcal provided by Propofol running at 32.6ml/hr. Expected Outcomes/Goals: 1. Reassess protein and energy needs when pt is off vent, based on her true weight without fluid retention and possibably an improved kideny function, 2. Advance to CCHO-diet with updated protein and energy needs, when medically feasible providing that she passes a PUBLIC HEALTH ADVISOR eval. Plan discussed with: FRANTZ Leyva MD Dec 22, 2024 14:12
[2024-12-22] MEDS: hydrALAZINE HCL 20 MG/ML VL IV PRN (23:15)
--- NOTE | 2024-12-22 23:56 | DVHPN2 ---
Progress Note - Dictate Date Seen: Dec 22, 2024 Medical Necessity Reason Pt with a Central, PICC or Fol: Yes The following are medically ne: Mayo Catheter Reason for mayo catheter: Strict I&O Subjective Patient seen and examined at bedside. Intubated on mechanical ventilator. Overnight events reviewed. vital signs Vital Sign Date Time Temp Pulse Resp B/P (MAP) Pulse Ox O2 Delivery O2 Flow Rate FiO2 12/22/24 23:15 166/63 12/22/24 22:30 73 22 94 12/22/24 22:15 35 12/22/24 20:00 99.6 99.6 12/22/24 18:00 Mechanical Ventilator+ Total Intake and Output 12/21/24 12/21/24 12/22/24 15:00 23:00 07:00 Intake Total 903.40 ml 1670.40 ml 1067.875 ml Output Total 1100 ml 1300 ml Balance 903.40 ml 570.40 ml -232.125 ml medications Current Medications Medications Dose Ordered Sig/Julito Route Start Time Stop Time Status Last Admin Dose Admin Propofol 100 ml @ 4.08 mls/hr Q24H IV 12/15/24 05:15 12/22/24 06:31 40.8 MLS/HR Diagnostic Test (Pha) 1 strip Q6HR 12/15/24 12:00 12/22/24 17:10 1 STRIP Insulin Human Regular Q6HR SC 12/15/24 12:00 12/22/24 17:12 2 UNITS Dextrose 50 ml UD PRN IV 12/15/24 07:00 Acetaminophen 650 mg Q6HP PRN GT 12/15/24 13:00 12/15/24 13:21 650 MG Fentanyl Citrate 250 ml @ 2.5 mls/hr Q24H IV 12/16/24 11:15 12/21/24 21:39 22.5 MLS/HR Enteral Nutritional Formula 1,000 ml 40ML/HR GT 12/16/24 12:30 12/21/24 18:27 1,000 ML Enoxaparin Sodium 150 mg Q12HR SC 12/16/24 22:00 12/22/24 23:15 150 MG Ipratropium [place] 0.5 mg Q6HR NEB 12/17/24 00:00 12/22/24 18:14 0.5 MG Albuterol 2.5 mg Q6HR NEB 12/17/24 00:00 12/22/24 18:14 2.5 MG Pantoprazole Sodium 40 mg DAILY IV 12/17/24 10:00 12/22/24 09:51 40 MG Meropenem 50 ml @ 17 mls/hr Q8HR IV 12/17/24 22:00 12/22/24 23:10 17 MLS/HR Bumetanide 2 mg BIDD IV 12/18/24 18:00 12/22/24 17:10 2 MG Norepinephrine Bitartrate 250 ml @ 3.75 mls/hr Q24H IV 12/18/24 19:30 12/20/24 15:47 3.75 MLS/HR Hydralazine HCl 50 mg TID PO 12/18/24 22:00 Isosorbide Dinitrate 20 mg TID PO 12/20/24 22:00 Purified Water 200 ml Q6HR GT 12/20/24 18:00 12/22/24 17:09 200 ML Linezolid 300 ml @ 150 mls/hr Q12HR IV 12/20/24 22:00 12/22/24 09:50 150 MLS/HR Hydralazine HCl 10 mg Q6HP PRN IV 12/22/24 23:00 12/22/24 23:15 10 MG objective Gen.: Patient lying in bed in medical ICU. Intubated on mechanical ventilator. Head: Normocephalic, atraumatic. Eyes: PERRLA. Ears: Normal external anatomy. Throat: Endotracheal tube and orogastric tube in place. Neck: Supple, trachea midline. Chest: Transmitted breath sounds bilaterally. Decreased air entry bilaterally. No wheezing. Bibasilar crackles. Cardiovascular: Positive S1, positive S2. Regular rate and rhythm. Abdomen: Positive bowel sounds in all 4 quadrants. Soft, nontender, nondistended. : Mayo in place. Normal external genitalia. Rectal: Deferred. Skin: Warm, dry. Intact. Extremities: 2+ radial pulses bilaterally. No lower extremity edema. Neuro: Off sedation. laboratory and microbiology Laboratory Tests 12/22/24 03:00 Test 12/22/24 03:00 Range/Units Serum Glucose 143 H 74-106 mg/dL Assessment/Plan Impression: Acute hypoxic respiratory failure On mechanical ventilator Metabolic encephalopathy. Pneumonia Pulmonary edema Congestive heart failure Coronary artery disease. Acute renal failure Morbid obesity. Events: Remains on vent support On AC mode; RR 22, VT 450, PEEP 5, FiO2 40% Tolerated CPAP today, placed back on full support. Sedation vacation Fentanyl/Precedex Off Levophed, hemodynamically stable. CPAP in AM. CXR reviewed, notable for stable-appearing bilateral lower lung zone pulmonary airspace disease and probable pleural effusions. Stable cardiomegaly ABG reviewed, compensated. Labs and imaging reviewed. Rest of plan as noted below. Plan: s/p intubation on mechanical ventilator. On AC mode; RR 22, VT 450, PEEP 5, FiO2 40% Titrate FIO2 to keep O2 saturation above 90%. VAP bundle. Daily ABG and CXR while intubated Off sedation Continue bronchodilators. Continue antibiotics. F/u cultures. Pressors if necessary for hemodynamic support Titrate to keep mean arterial pressure greater than 65 mmHg. Tube feeds for nutritional support Monitor renal function Monitor electrolytes. Supplement as necessary. Monitor ins and outs. Maintain euvolemia. Diet and lifestyle modifications for weight reduction Morbid Obesity - complicates all care GI prophylaxis. DVT prophylaxis. Prognosis: Poor given patient's multiple co-morbidities. Condition: Critical Rest of plan per hospitalist and other consultants. A total of 35 minutes of critical care time was spent reviewing the patient record, examining the patient, making a diagnostic and therapeutic plan, discussing this plan with the medical personnel, following up on diagnostic studies and following the patient for clinical stability excluding any and all procedures. At least 50% of this time was spent in direct, [id number] contact. Thank you Dr. Maddox, for allowing me to participate in this patient's care. Further recommendations will depend on the patient's clinical course. Please do not hesitate to contact me if you have any questions or concerns. This medical document was created using an electronic medical record system with [employer] dictation system. Although these documentations are being carefully reviewed, there may still be some phonetic and typographical changes. The errors are purely typographical, due to imperfection on the software program, and do not reflect any compromise in the patient's medical care. Dietary Evaluation Review Comments: 1. Pt is on fat energy support through Propofol of 860 kca, the TF needs to be a low fat, high proteiin formula. Suggest using Vital High Protein @45ml/hr, in 24 hr, pt will receive 1080 kca, 94 g protein, This formula will satisfy pt's protein neeeds at 79% and energy needs at 79% including the 860 kcal provided by Propofol running at 32.6ml/hr. Expected Outcomes/Goals: 1. Reassess protein and energy needs when pt is off vent, based on her true weight without fluid retention and possibably an improved kideny function, 2. Advance to CCHO-diet with updated protein and energy needs, when medically feasible providing that she passes a CERTIFIED EXECUTIVE CHEF eval. Plan discussed with: Other (RN) Critical Care Time(min): 35 SKYLA HUDDLESTON MD Dec 22, 2024 23:56
[2024-12-23] VITALS (110 sets, daily range): BP systolic 111–182; BP diastolic 47–81; PULSE 64–92; RESP 14–28; TEMP 97.8–99.8; O2SAT 88–100
[2024-12-23 03:50] LABS: Basophils # (auto) 0.1 10 ^3/uL (0-0.2); Basophils % (auto) 0.6 % (0.0-2.0); Lymphocytes # (auto) 1.1 10 ^3/uL (0.4-5.4); Lymphocytes % (auto) 13.8 % (10.0-50.0); Mean Corpuscular Hgb Conc. 31.3 g/dL (32.0-36.0); Monocytes # (auto) 0.9 10 ^3/uL (0-1.3); Neutrophils # (auto) 5.4 10 ^3/uL (1.6-8.6)
[2024-12-23 03:53] LABS: Eosinophils # (auto) 0.5 10 ^3/uL (0-0.8); Eosinophils % (auto) 6.4 % (0.0-7.0); Hematocrit 32.6 % (36.0-46.0); Hemoglobin 10.2 g/dL (12.2-16.2); Mean Corpuscular Hemoglobin 24.4 pg (28.0-32.0); Neutrophils % (auto) 68.2 % (37.0-80.0); Nucleated Red Blood Cells % 0.3 %; Platelet Count (auto) 350 10^3/uL (140-450); Red Blood Cells 4.19 10^6/uL (4.0-5.20); Red Cell Distribution Width 18.5 % (11.8-14.3)
[2024-12-23 03:57] LABS: Potassium 3.6 mmol/L (3.5-5.1)
[2024-12-23 03:58] LABS: Anion Gap 8 (5-15); Calcium 9.6 mg/dL (8.7-10.4)
[2024-12-23 04:00] LABS: Carbon Dioxide 34 mmol/L (20-31); Chloride 107 mmol/L (98-107); Sodium 149 mmol/L (136-145)
[2024-12-23 04:03] LABS: BUN/Creatinine Ratio 21.8 (10.0-20.0); Blood Urea Nitrogen 22 mg/dL (9-23)
[2024-12-23 04:05] LABS: Glucose 200 mg/dL (74-106)
--- NOTE | 2024-12-23 04:45 | DVH ---
CHEST RADIOGRAPH Indication: INTUBATED Technique: Single frontal view of the chest was obtained Comparison: XY CHEST PORTABLE on DOS: 12/22/24, XY CHEST XRAY 1 VIEW on DOS: 12/21/24, XY CHEST XRAY 1 VIEW on DOS: 12/20/24 FINDINGS: Lines and Tubes: The endotracheal tube terminates 3.6 cm above the consuelo. The enteric tube terminate s in the proximal esophagus. Left central venous catheter terminates in the superior vena cava. Lungs: Diffuse bilateral airspace disease similar to prior study. Pleura: No effusion. No pneumothorax. Cardiomediastinal contours: Stable cardiomegaly. Bones: No acute osseous abnormality. IMPRESSION: 1. Enteric tube terminates in the proximal esophagus. Advancement is recommended. Other lines and tu bes unchanged in position. 2. Diffuse bilateral airspace disease similar to prior study.
[2024-12-23 09:46] LABS: Base Excess 9.8 mmol/L (-2.0-3.0)
[2024-12-23] MEDS: BUMETANIDE 1mg/4ml VIAL (0.25mg/ml) IV ONE (10:00)
[2024-12-23] MEDS: acetaZOLAMIDE SODIUM 500 MG VL IV ONE (12:21)
[2024-12-23 14:23] LABS: Base Excess 7.5 mmol/L (-2.0-3.0)
[2024-12-23 16:20] LABS: Base Excess 6.3 mmol/L (-2.0-3.0)
--- NOTE | 2024-12-23 17:22 | DVHNC2 ---
Intubation Indication: Respiratory Insufficiency Prep: Preoxygenation Pretreated with: Analgesia, Sedation Medicated with: Other ( rocuronium) Intubation Approach: Orotracheal UTO Consent yes Notes 8 mm ETT fixed at 24cm at the lip Positive color change to yellow on colorimetric capnography condensation seen in the tube chest rise and B/L air entry auscultated Date of Service: Dec 23, 2024 Billing Provider: FRANNY PEACE MD Common Visit Codes: PROCEDURE ONLY Procedure Codes: [id number] JACKY GARCIA RESIDENT Dec 23, 2024 17:21 FRANNY PEACE MD Dec 24, 2024 14:28
[2024-12-23] MEDS: ETOMIDATE (2MG/ML) 20ML VIAL IV ONE ×2 (17:24→17:27)
[2024-12-23] MEDS: ROCURONIUM 10MG/ML 10ML VIAL IV ONE ×2 (17:26→17:27)
[2024-12-23] MEDS: MIDAZOLAM DRIP 50 mg/50mL 50 ML IV ONE (17:28)
--- NOTE | 2024-12-23 18:07 | DVH ---
AP portable chest CLINICAL INDICATION: Post intubation Comparison study 420 2024 FINDINGS: Endotracheal tube tip 5 cm above the consuelo. There is obscuration of the right hemidiaphrag m. The heart size is enlarged IMPRESSION: 1. Compared to previous exam endotracheal tube tip is now 5 cm above the consuelo. There remains consolid ation and or effusion in the right lung base
[2024-12-23 18:27] LABS: Base Excess 9.3 mmol/L (-2.0-3.0)
--- NOTE | 2024-12-23 20:26 | DVHPNRES ---
Progress Note Date Seen: Dec 23, 2024 Resident Creating Document: JACKY GARCIA RESIDENT Medical Necessity Reason Pt with a Central, PICC or Fol: Yes The following are medically ne: Mayo Catheter Reason for mayo catheter: Strict I&O Subjective Review of Systems Patient is a 59-year-old female with a past medical history of COPD, insulin dependent type 2 diabetes mellitus, congestive heart failure, coronary artery disease was brought to the hospital via EMS with altered mental status and bradycardia. As per patient's niece who is her take her carton wrapper, when she went to her room to give in the afternoon, she found with the patient to be confused and she checked her vitals reported low blood pressure and heart rate in 30s which she suspected might be because she took her blood pressure medications twice, following which she called EMS and the patient was brought to the hospital. She reports patient has been in and out of the hospital since the past 6 months for complains of shortness of breath. The last time she was hospitalized was in [facility] about 2.5-3 months ago following which she was sent to rehab facility and [facility] from where she got discharged about a week ago to home. Patient has been bed-bound since the last 8 years. At home patient has an oxygen concentrator and uses oxygen at 8-10 L per minute. Patient came in with altered mental status and ABG showed respiratory acidosis following which she was intubated and put on mechanical ventilation. Past medical history: COPD with 8-10 L oxygen per minute at home, insulin dependent type 2 diabetes mellitus, congestive heart failure, coronary artery disease, atrial fibrillation Past surgical history: Denies Social history: Patient is bed-bound, her niece as the carton wrapper, denies smoking, alcohol, any other drug use Home medications: Amiodarone 200 mg b.i.d., aspirin 81 mg daily, Jardiance 25 mg daily, fluticasone inhaler, Lasix 80 mg, metoprolol succinate 100 mg daily, losartan 100 mg daily, Eliquis 5 mg b.i.d. Review of systems Patient seen and examined at the bedside Patient in the morning was put on a CPAP trial which she tolerated well and was extubated and she was following commands and was put on BiPaP post extubation her CO2 level kept increasing and patient was more drowsy and somnolent and had to be reintubated urine output 1500ml over the day shift Objective vital signs Vital Sign Date Time Temp Pulse Resp B/P (MAP) Pulse Ox O2 Delivery O2 Flow Rate FiO2 12/23/24 18:55 161/74 12/23/24 18:31 66 22 98 70 12/23/24 18:30 Mechanical Ventilator+ 12/23/24 18:15 97.8 97.8 12/23/24 09:49 0 Total Intake and Output 12/22/24 12/22/24 12/23/24 15:00 23:00 07:00 Intake Total 412 ml 277.876 ml 492.704 ml Output Total 950 ml 1450 ml Balance 412 ml -672.124 ml -957.296 ml medications Current Medications Medications Dose Ordered Sig/Julito Route Start Time Stop Time Status Last Admin Dose Admin Propofol 100 ml @ 4.08 mls/hr Q24H IV 12/15/24 05:15 12/23/24 17:56 4.08 MLS/HR Diagnostic Test (Pha) 1 strip Q6HR 12/15/24 12:00 12/23/24 18:06 1 STRIP Insulin Human Regular Q6HR SC 12/15/24 12:00 12/23/24 18:07 3 UNITS Dextrose 50 ml UD PRN IV 12/15/24 07:00 Acetaminophen 650 mg Q6HP PRN GT 12/15/24 13:00 12/15/24 13:21 650 MG Fentanyl Citrate 250 ml @ 2.5 mls/hr Q24H IV 12/16/24 11:15 12/21/24 21:39 22.5 MLS/HR Enteral Nutritional Formula 1,000 ml 40ML/HR GT 12/16/24 12:30 12/21/24 18:27 1,000 ML Enoxaparin Sodium 150 mg Q12HR SC 12/16/24 22:00 12/23/24 09:39 150 MG Ipratropium [place] 0.5 mg Q6HR NEB 12/17/24 00:00 12/23/24 18:29 0.5 MG Albuterol 2.5 mg Q6HR NEB 12/17/24 00:00 12/23/24 18:29 2.5 MG Pantoprazole Sodium 40 mg DAILY IV 12/17/24 10:00 12/23/24 10:49 40 MG Meropenem 50 ml @ 17 mls/hr Q8HR IV 12/17/24 22:00 12/23/24 14:07 17 MLS/HR Bumetanide 2 mg BIDD IV 12/18/24 18:00 12/23/24 10:50 2 MG Norepinephrine Bitartrate 250 ml @ 3.75 mls/hr Q24H IV 12/18/24 19:30 12/20/24 15:47 3.75 MLS/HR Hydralazine HCl 50 mg TID PO 12/18/24 22:00 Isosorbide Dinitrate 20 mg TID PO 12/20/24 22:00 Linezolid 300 ml @ 150 mls/hr Q12HR IV 12/20/24 22:00 12/23/24 12:21 150 MLS/HR Hydralazine HCl 10 mg Q6HP PRN IV 12/22/24 23:00 12/23/24 05:46 10 MG Examination Constitutional: Patient was morbidly obese, sedated and mechanically ventilated with RASS -4 Gen - no pallor, no icterus, no cyanosis, no clubbing, no LAD, trace edema. Skin - Patients skin is warm and dry. HEENT - normocephalic, atraumatic, moist mucous membranes. Neck - full ROM, no LAD, JVD could not be assessed. Pulmonary - B/L diminished breath sounds with inspiratory crackles, no wheezing cardiovascular - variable S1,S2 heard, no added sounds, no murmurs heard. GI - obese, soft abdomen, large area of dark discoloration below the umbilicus Neurological - currently mechanically ventilated, RASS -4, gag reflex present, pupils equal and reactive laboratory and microbiology Laboratory Tests 12/23/24 03:15 Test 12/23/24 03:15 Range/Units Serum Glucose 200 H 74-106 mg/dL Microbiology Date/Time Source Procedure Growth Status 12/16/24 13:20 Blood Blood Culture - Final NO GROWTH AFTER 5 DAYS OF INCUBATION. Complete 12/15/24 13:45 Urine - Mayo [place] Urine Culture - Final Escherichia coli - ESBL Complete 12/15/24 11:44 Nose MRSA Screen - Final Methicillin Resistant S.aureus Complete 12/15/24 02:21 Sputum Gram Stain - Final Complete 12/15/24 02:21 Respiratory Culture - Final Pseudomonas aeruginosa Methicillin Resistant S.aureus Complete Problem List/Assessment/Plan Problem List/Assessment/Plan Neurology Acute metabolic encephalopathy likely due to hypercapnia - on mechanical ventilation Respiratory Acute on chronic hypoxic/hypercarbic respiratory failure likely due to COPD/LAZARA/OHS On mechanical ventilation Sepsis likely due to pneumonia Pneumonia likely due to Gram +/- bacteria Pulmonary edema - on mechanical ventilation - sputum cultures growing MRSA and pseudomonas - IV meropenam and linezolid - bumex 2mg bid Cardiovascular Acute on chronic heart failure with preserved ejection fraction Severe right ventricular failure Pulmonary edema likely due to above Hypertensive heart disease with heart failure Bradycardia with AV block, junctional rhythm, resolved H/o atrial fibrillation - ECG showed bradycardia with prolonged AK interval - Echo shows LVEF 60% with mod degree LV diastolic dysfucntion, mod dilated LA, moderate degree MR, mod dilated and hypokinetic RV associated Dyskinesis with major RV failure - on Bumex - hydralazine 50 mg t.i.d. and isosorbide dinitrate 20 mg t.i.d. - on enoxaparin therapeutic dose Nephrology VIVI on CKD likely prerenal due to VMN - FENa < 1% - BUN and creatinine improving Endocrinology Insulin-dependent type 2 diabetes mellitus with hyperglycemia - on insulin sliding scale - on Glucerna at 40 mL/hour Infectious disease Sepsis likely due to pneumonia/UTI UTI with long-term indwelling Mayo catheter, with ESBL E.coli present on admission MRSA nares positive - urine culture shows ESBL E.Coli - respiratory culture pending - blood cultures showed growth of staph epidermidis which could be a contaminant, repeated cultures - on IV Meropenam - mupirocin ointment 12/23- Patient in the morning was put on a CPAP trial which she tolerated well and was extubated and she was following commands and was put on BiPaP. Post extubation her CO2 level kept increasing and patient was more drowsy and somnolent and had to be reintubated. Diet: Glucerna at 40 mL/hour via NG PUD prophylaxis: Protonix DVT prophylaxis: Enoxaparin Left IJV TLC inserted on 12/15 Mayo's catheter inserted on 12/16 Goals of care discussed with the patient's elder sister for over 30 minutes. Full code Critical care time spent excluding procedures including cpap trial was 83 minutes Plan discussed with Dr. Peace Plan discussed with: Other (sister, RN ( [facility] )) My Orders My Orders Orders - JACKY GARCIA RESIDENT Procedure Category Date Status Time Abg W/ Co-Ox RT 12/23/24 Logged 08:30 * Swallow Request ST 12/24/24 Transmitted 08:00 BIPAP RT 12/23/24 Logged 16:30 Abg W/ Co-Ox RT 12/23/24 Logged 17:30 Respiratory Culture ANIYA 12/23/24 In Process W/ Gs 17:15 Ventilator Orders RT 12/23/24 Transmitted 17:15 Complete Blood Count LAB 12/24/24 Verified 04:00 Comprehensive LAB 12/24/24 Verified Metabolic Panel 04:00 Chest Portable XY 12/24/24 Logged 04:00 Abg W/ Co-Ox RT 12/24/24 Logged 04:00 Dietary Evaluation Review Comments: 1. Pt is on fat energy support through Propofol of 860 kca, the TF needs to be a low fat, high proteiin formula. Suggest using Vital High Protein @45ml/hr, in 24 hr, pt will receive 1080 kca, 94 g protein, This formula will satisfy pt's protein neeeds at 79% and energy needs at 79% including the 860 kcal provided by Propofol running at 32.6ml/hr. Expected Outcomes/Goals: 1. Reassess protein and energy needs when pt is off vent, based on her true weight without fluid retention and possibably an improved kideny function, 2. [facility] with updated protein and energy needs, when medically feasible providing that she passes a NOTE KEEPER eval. Date of Service: Dec 23, 2024 Billing Provider: FRANNY PEACE MD Common Visit Codes: 08952-[id number] CARE 30-74 MIN, 63422-[id number] CARE-EACH +30MIN JACKY GARCIA RESIDENT Dec 23, 2024 20:26 FRANNY PEACE MD Dec 24, 2024 14:31
--- NOTE | 2024-12-23 23:11 | DVHPN2 ---
Progress Note - Dictate Date Seen: Dec 23, 2024 Medical Necessity Reason Pt with a Central, PICC or Fol: Yes The following are medically ne: Mayo Catheter Reason for mayo catheter: Strict I&O Subjective Patient was seen and evaluated in follow up in the ICU. Patient was on CPAP trial this morning, tolerated well and was extubated. She was following commands and was put on BiPaP. Post extubation her CO2 level kept increasing and patient was more drowsy and somnolent and had to be reintubated. NA 149, CO2 34. vital signs Vital Sign Date Time Temp Pulse Resp B/P (MAP) Pulse Ox O2 Delivery O2 Flow Rate FiO2 12/23/24 22:15 73 22 147/70 (95) 98 12/23/24 22:00 60 12/23/24 20:00 98.4 98.4 12/23/24 18:30 Mechanical Ventilator+ 12/23/24 09:49 0 Total Intake and Output 12/22/24 12/22/24 12/23/24 15:00 23:00 07:00 Intake Total 412 ml 277.876 ml 492.704 ml Output Total 950 ml 1450 ml Balance 412 ml -672.124 ml -957.296 ml medications Current Medications Medications Dose Ordered Sig/Julito Route Start Time Stop Time Status Last Admin Dose Admin Propofol 100 ml @ 4.08 mls/hr Q24H IV 12/15/24 05:15 12/23/24 21:30 16.32 MLS/HR Diagnostic Test (Pha) 1 strip Q6HR 12/15/24 12:00 12/23/24 18:06 1 STRIP Insulin Human Regular Q6HR SC 12/15/24 12:00 12/23/24 18:07 3 UNITS Dextrose 50 ml UD PRN IV 12/15/24 07:00 Acetaminophen 650 mg Q6HP PRN GT 12/15/24 13:00 12/15/24 13:21 650 MG Fentanyl Citrate 250 ml @ 2.5 mls/hr Q24H IV 12/16/24 11:15 12/21/24 21:39 22.5 MLS/HR Enteral Nutritional Formula 1,000 ml 40ML/HR GT 12/16/24 12:30 12/21/24 18:27 1,000 ML Enoxaparin Sodium 150 mg Q12HR SC 12/16/24 22:00 12/23/24 09:39 150 MG Ipratropium [place] 0.5 mg Q6HR NEB 12/17/24 00:00 12/23/24 18:29 0.5 MG Albuterol 2.5 mg Q6HR NEB 12/17/24 00:00 12/23/24 18:29 2.5 MG Pantoprazole Sodium 40 mg DAILY IV 12/17/24 10:00 12/23/24 10:49 40 MG Meropenem 50 ml @ 17 mls/hr Q8HR IV 12/17/24 22:00 12/23/24 14:07 17 MLS/HR Bumetanide 2 mg BIDD IV 12/18/24 18:00 12/23/24 10:50 2 MG Norepinephrine Bitartrate 250 ml @ 3.75 mls/hr Q24H IV 12/18/24 19:30 12/20/24 15:47 3.75 MLS/HR Hydralazine HCl 50 mg TID PO 12/18/24 22:00 12/23/24 22:07 50 MG Isosorbide Dinitrate 20 mg TID PO 12/20/24 22:00 12/23/24 22:07 20 MG Linezolid 300 ml @ 150 mls/hr Q12HR IV 12/20/24 22:00 12/23/24 22:06 150 MLS/HR Hydralazine HCl 10 mg Q6HP PRN IV 12/22/24 23:00 12/23/24 05:46 10 MG objective GENERAL: Intubated on ventilator. Morbidly obese . EYES: PERRL, EOMI. Anicteric. HENT: Moist mucous membranes. LUNGS: Decreased all breath sounds. CARDIOVASCULAR: Regular rate and rhythm. ABDOMEN: Soft, nontender and nondistended. EXTREMITIES: No edema. SKIN: Warm, dry. laboratory and microbiology Laboratory Tests 12/23/24 03:15 Test 12/23/24 03:15 Range/Units Serum Glucose 200 H 74-106 mg/dL Problem List Accidental medication overdose. Acute encephalopathy. Acute respiratory failure. Respiratory acidosis. Right pleural effusion. Leukocytosis Chest pain. Bradycardia. CHF. CAD. Acute renal failure Hyperkalemia. UTI. DM type 2. Hypertension. Morbid obesity. History of CVA. Assessment/Plan Continued all current supportive medical care. Diuretics with Bumex. DVT and GI prophylactics. IV Hydralazine for SBP >150. IV antibiotics as ordered. Vasopressors for hemodynamic support. Additional plan as per the hospital course. Critical care time of 45 minutes provided to include time spent evaluation of patient at bedside, when appropriate patient/family education for diagnosis, treatment plan, review of pertinent medical information and discussion of care with specialty providers and PCP. Mechanical ventilator parameters, treatment and adjustments have personally been reviewed by me and treatment plan by veneer joiner has also been reviewed. Dietary Evaluation Review Comments: 1. Pt is on fat energy support through Propofol of 860 kca, the TF needs to be a low fat, high proteiin formula. Suggest using Vital High Protein @45ml/hr, in 24 hr, pt will receive 1080 kca, 94 g protein, This formula will satisfy pt's protein neeeds at 79% and energy needs at 79% including the 860 kcal provided by Propofol running at 32.6ml/hr. Expected Outcomes/Goals: 1. Reassess protein and energy needs when pt is off vent, based on her true weight without fluid retention and possibably an improved kideny function, [facility]. [facility] protein and energy needs, when medically feasible providing that she passes a TREE LOADER MEAT eval. Plan discussed with: FRANTZ Leyva MD Dec 23, 2024 23:11
[2024-12-24] VITALS (105 sets, daily range): BP systolic 84–158; BP diastolic 36–70; PULSE 66–83; RESP 9–24; TEMP 97.9–100.1; O2SAT 88–99
[2024-12-24] MEDS: MEROPENEM 1GM IVPB 50 ML IV SCH (00:18)
[2024-12-24 04:19] LABS: Basophils # (auto) 0 10 ^3/uL (0-0.2); Basophils % (auto) 0.5 % (0.0-2.0); Eosinophils # (auto) 0.4 10 ^3/uL (0-0.8); Eosinophils % (auto) 4.8 % (0.0-7.0); Hematocrit 34.3 % (36.0-46.0); Hemoglobin 10.4 g/dL (12.2-16.2); Lymphocytes # (auto) 1.3 10 ^3/uL (0.4-5.4); Lymphocytes % (auto) 16.5 % (10.0-50.0); Mean Corpuscular Hemoglobin 24.6 pg (28.0-32.0); Mean Corpuscular Hgb Conc. 30.4 g/dL (32.0-36.0); Mean Corpuscular Volume 80.8 fL (80.0-100.0); Monocytes # (auto) 0.9 10 ^3/uL (0-1.3); Monocytes % (auto) 11.6 % (0.0-12.0); Neutrophils # (auto) 5.3 10 ^3/uL (1.6-8.6); Neutrophils % (auto) 66.6 % (37.0-80.0); Nucleated Red Blood Cells % 0.4 %; Platelet Count (auto) 352 10^3/uL (140-450); Red Blood Cells 4.24 10^6/uL (4.0-5.20); Red Cell Distribution Width 18.6 % (11.8-14.3)
[2024-12-24 04:45] LABS: Alanine Aminotransferase 31 U/L (7-40); Albumin 3.6 g/dL (3.2-4.8); Alkaline Phosphatase 73 U/L (46-116); Anion Gap 10 (5-15); BUN/Creatinine Ratio 17.5 (10.0-20.0); Blood Urea Nitrogen 17 mg/dL (9-23); Calcium 9.7 mg/dL (8.7-10.4); Carbon Dioxide 29 mmol/L (20-31); Total Protein 6.3 g/dL (5.7-8.2)
[2024-12-24 04:46] LABS: Aspartate Aminotransferase 30 U/L (13-40)
[2024-12-24 04:54] LABS: Bilirubin, Total < 0.2 mg/dL (0.2-1.0); Chloride 109 mmol/L (98-107); Glucose 113 mg/dL (74-106); Potassium 3.5 mmol/L (3.5-5.1); Sodium 148 mmol/L (136-145)
--- NOTE | 2024-12-24 05:24 | DVH ---
EXAM: XR Chest, 1 View CLINICAL INDICATION: PATIENT INTUBATED TECHNIQUE: Frontal view of the chest. COMPARISON: XY CHEST XRAY 1 VIEW on DOS: 12/23/24, XY CHEST PORTABLE on DOS: 12/23/24, XY CHEST TREVON BLE on DOS: 12/22/24, XY CHEST XRAY 1 VIEW on DOS: 12/21/24, XY CHEST XRAY 1 VIEW on DOS: 12/20/24 FINDINGS: LUNGS AND PLEURAL SPACES: Pulmonary venous congestion. No consolidation. No pneumothorax. HEART: Unremarkable. No cardiomegaly. MEDIASTINUM: Unremarkable. Normal mediastinal contour. BONES/JOINTS: Unremarkable. No acute fracture. TUBES, LINES AND DEVICES: The endotracheal tube (ETT) is in satisfactory position. Enteric tube ti p cannot be seen but is below the diaphragm. OTHER FINDINGS: . . . IMPRESSION: Pulmonary venous congestion.
[2024-12-24 07:08] LABS: Base Excess 7.4 mmol/L (-2.0-3.0)
[2024-12-24] MEDS: POTASSIUM CHL 20MEQ/50ML 50 ML IV SCH (09:31)
[2024-12-24] MEDS: hydrALAZINE HCL 25 MG TAB PO SCH (14:00)
[2024-12-24] MEDS: methylPREDNISolone SOD SUCC 125 MG/2 ML VL IV ONE (15:04)
[2024-12-24] MEDS: FREE WATER GT SCH (18:02)
--- NOTE | 2024-12-24 18:47 | DVHPNRES ---
Progress Note Date Seen: Dec 24, 2024 Resident Creating Document: JACKY GARCIA RESIDENT Medical Necessity Reason Pt with a Central, PICC or Fol: Yes The following are medically ne: Mayo Catheter Reason for mayo catheter: Strict I&O Subjective Review of Systems Patient is a 59-year-old female with a past medical history of COPD, insulin dependent type 2 diabetes mellitus, congestive heart failure, coronary artery disease was brought to the hospital via EMS with altered mental status and bradycardia. As per patient's niece who is her take her thread separator, when she went to her room to give in the afternoon, she found with the patient to be confused and she checked her vitals reported low blood pressure and heart rate in 30s which she suspected might be because she took her blood pressure medications twice, following which she called EMS and the patient was brought to the hospital. She reports patient has been in and out of the hospital since the past 6 months for complains of shortness of breath. The last time she was hospitalized was in [facility] about 2.5-3 months ago following which she was sent to rehab facility and [facility] from where she got discharged about a week ago to home. Patient has been bed-bound since the last 8 years. At home patient has an oxygen concentrator and uses oxygen at 8-10 L per minute. Patient came in with altered mental status and ABG showed respiratory acidosis following which she was intubated and put on mechanical ventilation. Past medical history: COPD with 8-10 L oxygen per minute at home, insulin dependent type 2 diabetes mellitus, congestive heart failure, coronary artery disease, atrial fibrillation Past surgical history: Denies Social history: Patient is bed-bound, her niece as the thread separator, denies smoking, alcohol, any other drug use Home medications: Amiodarone 200 mg b.i.d., aspirin 81 mg daily, Jardiance 25 mg daily, fluticasone inhaler, Lasix 80 mg, metoprolol succinate 100 mg daily, losartan 100 mg daily, Eliquis 5 mg b.i.d. Review of systems Patient seen and examined at the bedside Patient on mechanical ventilation and sedated B/l diminieshed breath sounds with crackles , chest x ray showed B/L pulmonary edema Gastric residual volume at 85 ml in the morning urine output noted to be lower as compared to yesterday Objective vital signs Vital Sign Date Time Temp Pulse Resp B/P (MAP) Pulse Ox O2 Delivery O2 Flow Rate FiO2 12/24/24 18:06 151/59 12/24/24 16:10 68 22 93 35 12/24/24 16:00 Mechanical Ventilator+ 12/24/24 12:00 98.5 98.5 12/23/24 09:49 0 Total Intake and Output 12/23/24 12/23/24 12/24/24 15:00 23:00 07:00 Intake Total 189.12 ml 973.62 ml Output Total 1500 ml 550 ml Balance -1310.88 ml 423.62 ml medications Current Medications Medications Dose Ordered Sig/Julito Route Start Time Stop Time Status Last Admin Dose Admin Propofol 100 ml @ 4.08 mls/hr Q24H IV 12/15/24 05:15 12/24/24 15:04 40.8 MLS/HR Diagnostic Test (Pha) 1 strip Q6HR 12/15/24 12:00 12/24/24 18:02 1 STRIP Insulin Human Regular Q6HR SC 12/15/24 12:00 12/24/24 13:17 2 UNITS Dextrose 50 ml UD PRN IV 12/15/24 07:00 Acetaminophen 650 mg Q6HP PRN GT 12/15/24 13:00 12/15/24 13:21 650 MG Fentanyl Citrate 250 ml @ 2.5 mls/hr Q24H IV 12/16/24 11:15 12/24/24 18:06 20 MLS/HR Enteral Nutritional Formula 1,000 ml 40ML/HR GT 12/16/24 12:30 12/21/24 18:27 1,000 ML Enoxaparin Sodium 150 mg Q12HR SC 12/16/24 22:00 12/24/24 09:31 150 MG Ipratropium [place] 0.5 mg Q6HR NEB 12/17/24 00:00 12/24/24 11:30 0.5 MG Albuterol 2.5 mg Q6HR NEB 12/17/24 00:00 12/24/24 11:30 2.5 MG Pantoprazole Sodium 40 mg DAILY IV 12/17/24 10:00 12/24/24 09:31 40 MG Bumetanide 2 mg BIDD IV 12/18/24 18:00 12/24/24 18:02 2 MG Norepinephrine Bitartrate 250 ml @ 3.75 mls/hr Q24H IV 12/18/24 19:30 12/20/24 15:47 3.75 MLS/HR Isosorbide Dinitrate 20 mg TID PO 12/20/24 22:00 12/24/24 05:01 20 MG Linezolid 300 ml @ 150 mls/hr Q12HR IV 12/20/24 22:00 12/24/24 09:31 150 MLS/HR Meropenem 50 ml @ 17 mls/hr Q8HR IV 12/24/24 00:30 12/24/24 15:04 17 MLS/HR Hydralazine HCl 25 mg TID PO 12/24/24 14:00 Methylprednisolone Sodium Succinate 40 mg BID IV 12/24/24 22:00 Purified Water 100 ml Q6HR GT 12/24/24 18:00 12/24/24 18:02 100 ML Examination Constitutional: Patient was morbidly obese, sedated and mechanically ventilated with RASS -4 Gen - no pallor, no icterus, no cyanosis, no clubbing, no LAD, trace edema. Skin - Patients skin is warm and dry. HEENT - normocephalic, atraumatic, moist mucous membranes. Neck - full ROM, no LAD, JVD could not be assessed. Pulmonary - B/L diminished breath sounds with inspiratory crackles, no wheezing cardiovascular - variable S1,S2 heard, no added sounds, no murmurs heard. GI - obese, soft abdomen, large area of dark discoloration below the umbilicus Neurological - currently mechanically ventilated, RASS -4, gag reflex present, pupils equal and reactive laboratory and microbiology Laboratory Tests 12/24/24 03:32 Test 12/24/24 03:32 Range/Units Serum Glucose 113 H 74-106 mg/dL Microbiology Date/Time Source Procedure Growth Status 12/23/24 17:20 Sputum Gram Stain Pending Resulted 12/23/24 17:20 Sputum Respiratory Culture - Preliminary Resulted 12/16/24 13:20 Blood Blood Culture - Final NO GROWTH AFTER 5 DAYS OF INCUBATION. Complete 12/15/24 13:45 Urine - Mayo [place] Urine Culture - Final Escherichia coli - ESBL Complete 12/15/24 11:44 Nose MRSA Screen - Final Methicillin Resistant S.aureus Complete Problem List/Assessment/Plan Problem List/Assessment/Plan Neurology Acute metabolic encephalopathy likely due to hypercapnia - on mechanical ventilation Respiratory Acute on chronic hypoxic/hypercarbic respiratory failure likely due to COPD/LAZARA/OHS On mechanical ventilation Sepsis likely due to pneumonia Pneumonia likely due to Gram +/- bacteria Pulmonary edema - on mechanical ventilation - sputum cultures growing MRSA and pseudomonas - IV meropenam and linezolid - bumex 2mg bid - added methylprednisolone 40mg bid Cardiovascular Acute on chronic heart failure with preserved ejection fraction Severe right ventricular failure Pulmonary edema likely due to above Hypertensive heart disease with heart failure Bradycardia with AV block, junctional rhythm, resolved H/o atrial fibrillation - ECG showed bradycardia with prolonged TN interval - Echo shows LVEF 60% with mod degree LV diastolic dysfucntion, mod dilated LA, moderate degree MR, mod dilated and hypokinetic RV associated Dyskinesis with major RV failure - on Bumex - hydralazine 50 mg t.i.d. and isosorbide dinitrate 20 mg t.i.d. - on enoxaparin therapeutic dose Nephrology VIVI on CKD likely prerenal due to VMN - FENa < 1% - BUN and creatinine improving Endocrinology Insulin-dependent type 2 diabetes mellitus with hyperglycemia - on insulin sliding scale - on Glucerna at 40 mL/hour Infectious disease Sepsis likely due to pneumonia/UTI UTI with long-term indwelling Mayo catheter, with ESBL E.coli present on admission MRSA nares positive - urine culture shows ESBL E.Coli - respiratory culture pending - blood cultures showed growth of staph epidermidis which could be a contaminant, repeated cultures - on IV Meropenam - mupirocin ointment 12/23- Patient in the morning was put on a CPAP trial which she tolerated well and was extubated and she was following commands and was put on BiPaP. Post extubation her CO2 level kept increasing and patient was more drowsy and somnolent and had to be reintubated. Diet: Glucerna at 40 mL/hour via NG PUD prophylaxis: Protonix DVT prophylaxis: Enoxaparin Left IJV TLC inserted on 12/15 Mayo's catheter inserted on 12/16 Goals of care discussed with the patient's elder sister for over 30 minutes. Full code Critical care time spent excluding procedures: 51 minutes Plan discussed with Dr. Peace Plan discussed with: Other (sister, RN ( ne )) My Orders My Orders Orders - JACKY GARCIA RESIDENT Procedure Category Date Status Time Chest Portable XY 12/24/24 Resulted 04:00 Abg W/ Co-Ox RT 12/24/24 Logged 04:00 Meropenem 1gm Ivpb PHA 12/24/24 In Process (Merrem 1gm/ Ns) 00:30 Hydralazine Hcl PHA 12/24/24 In Process Tablet (Apresoline 14:00 Respiratory Misc. RT 12/24/24 Transmitted Order 08:18 Free Water PHA 12/24/24 In Process 18:00 Basic Metabolic Panel LAB 12/25/24 Verified 04:00 Complete Blood Count LAB 12/25/24 Verified 04:00 Magnesium LAB 12/25/24 Verified 04:00 Phosphorus LAB 12/25/24 Verified 04:00 Chest Xray 1 View XY 12/25/24 Logged 04:00 Abg W/ Co-Ox RT 12/25/24 Logged 04:00 Dietary Evaluation Review Comments: 1. Pt is on fat energy support through Propofol of 860 kca, the TF needs to be a low fat, high proteiin formula. Suggest using Vital High Protein @45ml/hr, in 24 hr, pt will receive 1080 kca, 94 g protein, This formula will satisfy pt's protein neeeds at 79% and energy needs at 79% including the 860 kcal provided by Propofol running at 32.6ml/hr. Expected Outcomes/Goals: 1. Reassess protein and energy needs when pt is off vent, based on her true weight without fluid retention and possibably an improved kideny function, 2. Advance to [facility]-diet with updated protein and energy needs, when medically feasible providing that she passes a PSYCHOLOGIST INDUSTRIAL ORGANIZATIONAL eval. Date of Service: Dec 24, 2024 Billing Provider: FRANNY PEACE MD Common Visit Codes: 29772-[id number] CARE 30-74 MIN JACKY GARCIA RESIDENT Dec 24, 2024 18:47 FRANNY PEACE MD Dec 25, 2024 15:31
[2024-12-24] MEDS: methylPREDNISolone SOD SUCC 125 MG/2 ML VL IV SCH (21:22)
--- NOTE | 2024-12-24 23:28 | DVHPN2 ---
Progress Note - Dictate Date Seen: Dec 24, 2024 Medical Necessity Reason Pt with a Central, PICC or Fol: Yes The following are medically ne: Mayo Catheter Reason for mayo catheter: Strict I&O Subjective Patient was seen and evaluated in follow up in the ICU. Patient is intubated and sedated on ventilator. 35% FiO2. Patient is receiving vasopressors for hemodynamic support. NA 148. Chest x-ray shows pulmonary venous congestion. Respiratory culture is pending. vital signs Vital Sign Date Time Temp Pulse Resp B/P (MAP) Pulse Ox O2 Delivery O2 Flow Rate FiO2 12/24/24 20:19 75 22 126/49 (74) 92 35 12/24/24 20:00 Mechanical Ventilator+ 12/24/24 16:00 99.1 99.1 12/23/24 09:49 0 Total Intake and Output 12/23/24 12/23/24 12/24/24 15:00 23:00 07:00 Intake Total 189.12 ml 973.62 ml Output Total 1500 ml 550 ml Balance -1310.88 ml 423.62 ml medications Current Medications Medications Dose Ordered Sig/Julito Route Start Time Stop Time Status Last Admin Dose Admin Propofol 100 ml @ 4.08 mls/hr Q24H IV 12/15/24 05:15 12/24/24 15:04 40.8 MLS/HR Diagnostic Test (Pha) 1 strip Q6HR 12/15/24 12:00 12/24/24 18:02 1 STRIP Insulin Human Regular Q6HR SC 12/15/24 12:00 12/24/24 18:00 3 UNITS Dextrose 50 ml UD PRN IV 12/15/24 07:00 Acetaminophen 650 mg Q6HP PRN GT 12/15/24 13:00 12/15/24 13:21 650 MG Fentanyl Citrate 250 ml @ 2.5 mls/hr Q24H IV 12/16/24 11:15 12/24/24 18:06 20 MLS/HR Enteral Nutritional Formula 1,000 ml 40ML/HR GT 12/16/24 12:30 12/21/24 18:27 1,000 ML Enoxaparin Sodium 150 mg Q12HR SC 12/16/24 22:00 12/24/24 09:31 150 MG Ipratropium [place] 0.5 mg Q6HR NEB 12/17/24 00:00 12/24/24 18:48 0.5 MG Albuterol 2.5 mg Q6HR NEB 12/17/24 00:00 12/24/24 18:49 2.5 MG Pantoprazole Sodium 40 mg DAILY IV 12/17/24 10:00 12/24/24 09:31 40 MG Bumetanide 2 mg BIDD IV 12/18/24 18:00 12/24/24 18:02 2 MG Norepinephrine Bitartrate 250 ml @ 3.75 mls/hr Q24H IV 12/18/24 19:30 12/20/24 15:47 3.75 MLS/HR Isosorbide Dinitrate 20 mg TID PO 12/20/24 22:00 12/24/24 05:01 20 MG Linezolid 300 ml @ 150 mls/hr Q12HR IV 12/20/24 22:00 12/24/24 09:31 150 MLS/HR Meropenem 50 ml @ 17 mls/hr Q8HR IV 12/24/24 00:30 12/24/24 15:04 17 MLS/HR Hydralazine HCl 25 mg TID PO 12/24/24 14:00 Methylprednisolone Sodium Succinate 40 mg BID IV 12/24/24 22:00 Purified Water 100 ml Q6HR GT 12/24/24 18:00 12/24/24 18:02 100 ML objective GENERAL: Intubated on ventilator. Morbidly obese . EYES: PERRL, EOMI. Anicteric. HENT: Moist mucous membranes. LUNGS: Decreased all breath sounds. CARDIOVASCULAR: Regular rate and rhythm. ABDOMEN: Soft, nontender and nondistended. EXTREMITIES: No edema. SKIN: Warm, dry. laboratory and microbiology Laboratory Tests 12/24/24 03:32 Test 12/24/24 03:32 Range/Units Serum Glucose 113 H 74-106 mg/dL Problem List Accidental medication overdose. Acute encephalopathy. Acute respiratory failure. Respiratory acidosis. Right pleural effusion. Leukocytosis Chest pain. Bradycardia. CHF. CAD. Acute renal failure Hyperkalemia. UTI. DM type 2. Hypertension. Morbid obesity. History of CVA. Assessment/Plan Continued all current supportive medical care. Diuretics with Bumex. DVT and GI prophylactics. IV Hydralazine for SBP >150. IV antibiotics as ordered. Vasopressors for hemodynamic support. Additional plan as per the hospital course. Critical care time of 45 minutes provided to include time spent evaluation of patient at bedside, when appropriate patient/family education for diagnosis, treatment plan, review of pertinent medical information and discussion of care with specialty providers and PCP. Mechanical ventilator parameters, treatment and adjustments have personally been reviewed by me and treatment plan by stringing machine tender has also been reviewed. Dietary Evaluation Review Comments: 1. Pt is on fat energy support through Propofol of 860 kca, the TF needs to be a low fat, high proteiin formula. Suggest using Vital High Protein @45ml/hr, in 24 hr, pt will receive 1080 kca, 94 g protein, This formula will satisfy pt's protein neeeds at 79% and energy needs at 79% including the 860 kcal provided by Propofol running at 32.6ml/hr. Expected Outcomes/Goals: 1. Reassess protein and energy needs when pt is off vent, based on her true weight without fluid retention and possibably an improved kideny function, 2. Advance to C[facility]-diet with updated protein and energy needs, when medically feasible providing that she passes a MATERIAL CONTROL SUPERVISOR eval. Plan discussed with: Other FRANTZ HOSKINS MD Dec 24, 2024 21:24
[2024-12-25] VITALS (104 sets, daily range): BP systolic 90–174; BP diastolic 33–79; PULSE 57–81; RESP 11–25; TEMP 97.9–98.8; O2SAT 89–100
--- NOTE | 2024-12-25 04:16 | DVH ---
EXAM: XY CHEST XRAY 1 VIEW DATE OF SERVICE: 12/25/2024 03:49 AM ORDERING PHYSICIAN: CAMILA PEREYRA RESIDENT REASON FOR EXAM: b/L pulmonary congestion, on vent TECHNIQUE: Frontal view of the chest. COMPARISON: XY CHEST XRAY 1 VIEW on DOS: 12/23/24, XY CHEST XRAY 1 VIEW on DOS: 12/21/24, XY CHEST XRAY 1 VIEW on DOS: 12/20/24, XY CHEST XRAY 1 VIEW on DOS: 12/19/24, XY CHEST XRAY 1 VIEW on DOS: 12/18/24, XY CHEST PORTABLE on DOS: 12/24/24 FINDINGS: LUNGS AND PLEURAL SPACES: Pulmonary venous congestion. No consolidation. No pneumothorax. HEART: Unremarkable. No cardiomegaly. MEDIASTINUM: Unremarkable. Normal mediastinal contour. BONES/JOINTS: Unremarkable. No acute fracture. TUBES, LINES AND DEVICES: The endotracheal tube (ETT) is in satisfactory position. Enteric tube ti p cannot be seen but is below the diaphragm. IMPRESSION: Pulmonary venous congestion. End of Report
[2024-12-25 04:20] LABS: Basophils # (auto) 0 10 ^3/uL (0-0.2); Basophils % (auto) 0.4 % (0.0-2.0); Eosinophils # (auto) 0 10 ^3/uL (0-0.8); Eosinophils % (auto) 0.1 % (0.0-7.0); Hemoglobin 10.8 g/dL (12.2-16.2); Lymphocytes # (auto) 0.7 10 ^3/uL (0.4-5.4); Mean Corpuscular Hemoglobin 24.4 pg (28.0-32.0); Monocytes # (auto) 0.1 10 ^3/uL (0-1.3); Neutrophils # (auto) 6.7 10 ^3/uL (1.6-8.6); Nucleated Red Blood Cells % 0.3 %; Red Cell Distribution Width 18.7 % (11.8-14.3); White Blood Cell 7.6 10^3/uL (4.4-10.8)
[2024-12-25 04:22] LABS: Hematocrit 34.7 % (36.0-46.0); Lymphocytes % (auto) 9.5 % (10.0-50.0); Mean Corpuscular Volume 78.8 fL (80.0-100.0); Monocytes % (auto) 1.5 % (0.0-12.0); Neutrophils % (auto) 88.5 % (37.0-80.0); Platelet Count (auto) 397 10^3/uL (140-450)
[2024-12-25 04:38] LABS: Calcium 9.7 mg/dL (8.7-10.4); Chloride 104 mmol/L (98-107); Potassium 4.3 mmol/L (3.5-5.1); Sodium 143 mmol/L (136-145)
[2024-12-25 04:39] LABS: Anion Gap 11 (5-15); Carbon Dioxide 28 mmol/L (20-31)
[2024-12-25 04:44] LABS: BUN/Creatinine Ratio 19.5 (10.0-20.0); Magnesium 2.2 mg/dL (1.6-2.6)
[2024-12-25 04:45] LABS: Blood Urea Nitrogen 23 mg/dL (9-23); Glucose 223 mg/dL (74-106)
[2024-12-25 04:46] LABS: Phosphorus 4.1 mg/dL (2.4-5.1)
[2024-12-25 06:53] LABS: Base Excess 1.5 mmol/L (-2.0-3.0)
[2024-12-25] MEDS: LACTULOSE 20Gm/30ML SOLN GT ONE (08:30)
[2024-12-25 09:45] LABS: INR 1.03 (0.9-1.15); Partial Thromboplastin Time 25.1 SEC (24.5-34.5); Prothrombin Time 10.9 sec (9.3-11.8)
[2024-12-25] MEDS: METOCLOPRAMIDE HCL 5MG/ml INJ 2ml VIAL IV SCH (10:14)
[2024-12-25] MEDS: BUMETANIDE 1mg/4ml VIAL (0.25mg/ml) IV ONE (12:21)
[2024-12-25] MEDS: acetaZOLAMIDE SODIUM 500 MG VL IV ONE (12:21)
[2024-12-25] MEDS: LACTULOSE 20Gm/30ML SOLN GT SCH (14:04)
--- NOTE | 2024-12-25 18:30 | DVHPNRES ---
Progress Note Date Seen: Dec 25, 2024 Resident Creating Document: JACKY GARCIA RESIDENT Medical Necessity Reason Pt with a Central, PICC or Fol: Yes The following are medically ne: Mayo Catheter Reason for mayo catheter: Strict I&O Subjective Review of Systems Patient is a 59-year-old female with a past medical history of COPD, insulin dependent type 2 diabetes mellitus, congestive heart failure, coronary artery disease was brought to the hospital via EMS with altered mental status and bradycardia. As per patient's niece who is her take her bar gauger and lubricator tender, when she went to her room to give in the afternoon, she found with the patient to be confused and she checked her vitals reported low blood pressure and heart rate in 30s which she suspected might be because she took her blood pressure medications twice, following which she called EMS and the patient was brought to the hospital. She reports patient has been in and out of the hospital since the past 6 months for complains of shortness of breath. The last time she was hospitalized was in [facility] about 2.5-3 months ago following which she was sent to rehab facility and [facility] from where she got discharged about a week ago to home. Patient has been bed-bound since the last 8 years. At home patient has an oxygen concentrator and uses oxygen at 8-10 L per minute. Patient came in with altered mental status and ABG showed respiratory acidosis following which she was intubated and put on mechanical ventilation. Past medical history: COPD with 8-10 L oxygen per minute at home, insulin dependent type 2 diabetes mellitus, congestive heart failure, coronary artery disease, atrial fibrillation Past surgical history: Denies Social history: Patient is bed-bound, her niece as the bar gauger and lubricator tender, denies smoking, alcohol, any other drug use Home medications: Amiodarone 200 mg b.i.d., aspirin 81 mg daily, Jardiance 25 mg daily, fluticasone inhaler, Lasix 80 mg, metoprolol succinate 100 mg daily, losartan 100 mg daily, Eliquis 5 mg b.i.d. Review of systems Patient seen and examined at the bedside On mechanical ventilation and sedated B/l diminieshed breath sounds with crackles , chest x ray showed B/L pulmonary edema similar to yesterday Gastric residual volume at 250 ml in the morning, tube feedings were held Objective vital signs Vital Sign Date Time Temp Pulse Resp B/P (MAP) Pulse Ox O2 Delivery O2 Flow Rate FiO2 12/25/24 18:15 58 22 102/38 (59) 90 12/25/24 16:34 35 12/25/24 12:00 98.6 98.6 12/25/24 08:00 Mechanical Ventilator+ 12/23/24 09:49 0 Total Intake and Output 12/24/24 12/24/24 12/25/24 15:00 23:00 07:00 Intake Total 822.44 ml 967.4 ml 1055.6 ml Output Total 400 ml 1000 ml Balance 822.44 ml 567.4 ml 55.6 ml medications Current Medications Medications Dose Ordered Sig/Julito Route Start Time Stop Time Status Last Admin Dose Admin Propofol 100 ml @ 4.08 mls/hr Q24H IV 12/15/24 05:15 12/25/24 16:24 40.8 MLS/HR Diagnostic Test (Pha) 1 strip Q6HR 12/15/24 12:00 12/25/24 12:23 1 STRIP Insulin Human Regular Q6HR SC 12/15/24 12:00 12/25/24 12:12 3 UNITS Dextrose 50 ml UD PRN IV 12/15/24 07:00 Acetaminophen 650 mg Q6HP PRN GT 12/15/24 13:00 12/15/24 13:21 650 MG Fentanyl Citrate 250 ml @ 2.5 mls/hr Q24H IV 12/16/24 11:15 12/25/24 16:41 25 MLS/HR Enteral Nutritional Formula 1,000 ml 40ML/HR GT 12/16/24 12:30 12/21/24 18:27 1,000 ML Enoxaparin Sodium 150 mg Q12HR SC 12/16/24 22:00 12/25/24 10:15 150 MG Ipratropium [place] 0.5 mg Q6HR NEB 12/17/24 00:00 12/25/24 12:32 0.5 MG Albuterol 2.5 mg Q6HR NEB 12/17/24 00:00 12/25/24 12:32 2.5 MG Pantoprazole Sodium 40 mg DAILY IV 12/17/24 10:00 12/25/24 10:06 40 MG Bumetanide 2 mg BIDD IV 12/18/24 18:00 12/25/24 07:35 2 MG Norepinephrine Bitartrate 250 ml @ 3.75 mls/hr Q24H IV 12/18/24 19:30 12/20/24 15:47 3.75 MLS/HR Isosorbide Dinitrate 20 mg TID PO 12/20/24 22:00 12/25/24 14:06 20 MG Linezolid 300 ml @ 150 mls/hr Q12HR IV 12/20/24 22:00 12/25/24 10:06 150 MLS/HR Meropenem 50 ml @ 17 mls/hr Q8HR IV 12/24/24 00:30 12/25/24 14:04 17 MLS/HR Hydralazine HCl 25 mg TID PO 12/24/24 14:00 12/25/24 14:05 25 MG Methylprednisolone Sodium Succinate 40 mg BID IV 12/24/24 22:00 12/25/24 10:07 40 MG Purified Water 100 ml Q6HR GT 12/24/24 18:00 12/25/24 12:40 100 ML Lactulose 30 ml Q8HR GT 12/25/24 14:00 12/25/24 14:04 30 ML Metoclopramide HCl 5 mg Q12HR IV 12/25/24 10:00 12/25/24 10:14 5 MG Examination Constitutional: Patient was morbidly obese, sedated and mechanically ventilated with RASS -4 Gen - no pallor, no icterus, no cyanosis, no clubbing, no LAD, trace edema. Skin - Patients skin is warm and dry. HEENT - normocephalic, atraumatic, moist mucous membranes. Neck - full ROM, no LAD, JVD could not be assessed. Pulmonary - B/L diminished breath sounds with inspiratory crackles, no wheezing cardiovascular - variable S1,S2 heard, no added sounds, no murmurs heard. GI - obese, soft abdomen, large area of dark discoloration below the umbilicus Neurological - currently mechanically ventilated, RASS -3, gag reflex present, pupils equal and reactive laboratory and microbiology Laboratory Tests 12/25/24 03:00 Test 12/25/24 03:00 Range/Units Serum Glucose 223 H 74-106 mg/dL Microbiology Date/Time Source Procedure Growth Status 12/23/24 17:20 Sputum Gram Stain - Final Resulted 12/23/24 17:20 Sputum Respiratory Culture - Preliminary Resulted 12/16/24 13:20 Blood Blood Culture - Final NO GROWTH AFTER 5 DAYS OF INCUBATION. Complete 12/15/24 13:45 Urine - Mayo [place] Urine Culture - Final Escherichia coli - ESBL Complete 12/15/24 11:44 Nose MRSA Screen - Final Methicillin Resistant S.aureus Complete Problem List/Assessment/Plan Problem List/Assessment/Plan Neurology Acute metabolic encephalopathy likely due to hypercapnia - on mechanical ventilation Respiratory Acute on chronic hypoxic/hypercarbic respiratory failure likely due to COPD/LAZARA/OHS On mechanical ventilation Severe sepsis with acute organ dysfucntion likely due to pneumonia Pneumonia likely due to Gram +/- bacteria Pulmonary edema - on mechanical ventilation - sputum cultures growing MRSA and pseudomonas - IV meropenam and linezolid - bumex 2mg bid - methylprednisolone 40mg bid Cardiovascular Acute on chronic heart failure with preserved ejection fraction Severe right ventricular failure Pulmonary edema likely due to above Hypertensive heart disease with heart failure Bradycardia with AV block ?accidental medication overdose, junctional rhythm, resolved H/o atrial fibrillation - ECG showed bradycardia with prolonged WI interval - Echo shows LVEF 60% with mod degree LV diastolic dysfucntion, mod dilated LA, moderate degree MR, mod dilated and hypokinetic RV associated Dyskinesis with major RV failure - on Bumex - hydralazine 25 mg t.i.d. and isosorbide dinitrate 20 mg t.i.d. - on enoxaparin therapeutic dose Nephrology VIVI on CKD likely prerenal due to VMN - FENa < 1% - BUN and creatinine improving Endocrinology Insulin-dependent type 2 diabetes mellitus with hyperglycemia - on insulin sliding scale - on tube feedings Infectious disease Sepsis likely due to pneumonia/UTI UTI with long-term indwelling Mayo catheter, with ESBL E.coli present on admission MRSA nares positive - urine culture shows ESBL E.Coli - respiratory culture pending - blood cultures showed growth of staph epidermidis which could be a contaminant, repeated cultures - on IV Meropenam - mupirocin ointment 12/23- Patient in the morning was put on a CPAP trial which she tolerated well and was extubated and she was following commands and was put on BiPaP. Post extubation her CO2 level kept increasing and patient was more drowsy and somnolent and had to be reintubated. Diet: Glucerna at 40 mL/hour via NG PUD prophylaxis: Protonix DVT prophylaxis: Enoxaparin Left IJV TLC inserted on 12/15 Mayo's catheter inserted on 12/16 Goals of care discussed with the patient's elder sister for over 30 minutes. Full code Critical care time spent excluding procedures: 51 minutes Plan discussed with Dr. Peace Plan discussed with: Other (sister, niece, RN ( Chase )) My Orders My Orders Orders - JACKY GARCIA Procedure Category Date Status Time * Picc Line Consult CONS 12/24/24 Transmitted 21:00 Lactulose Oral PHA 12/25/24 In Process 14:00 Metoclopramide PHA 12/25/24 In Process Injection (Reglan 10:00 Complete Blood Count LAB 12/26/24 Verified 04:00 Basic Metabolic Panel LAB 12/26/24 Verified 04:00 Chest Xray 1 View XY 12/26/24 Verified 04:00 Abg W/ Co-Ox RT 12/26/24 Verified 04:00 Dietary Evaluation Review Comments: 1. Pt is on fat energy support through Propofol of 860 kca, the TF needs to be a low fat, high proteiin formula. Suggest using Vital High Protein @45ml/hr, in 24 hr, pt will receive 1080 kca, 94 g protein, This formula will satisfy pt's protein neeeds at 79% and energy needs at 79% including the 860 kcal provided by Propofol running at 32.6ml/hr. Expected Outcomes/Goals: 1. Reassess protein and energy needs when pt is off vent, based on her true weight without fluid retention and possibably an improved kideny function, 2. Advance to CCHO-diet with updated protein and energy needs, when medically feasible providing that she passes a INSURANCE COUNSELOR eval. Date of Service: Dec 25, 2024 Billing Provider: FRANNY PEACE MD Common Visit Codes: 02121-[id number] CARE 30-74 MIN JACKY GARCIA Dec 25, 2024 18:30 FRANNY PEACE MD Dec 26, 2024 12:24
[2024-12-25] MEDS: BUMETANIDE 2.5mg/10ml (0.25 mg/ml) INJ IV SCH (18:46)
--- NOTE | 2024-12-25 22:48 | DVHPN2 ---
Progress Note - Dictate Date Seen: Dec 25, 2024 Medical Necessity Reason Pt with a Central, PICC or Fol: Yes The following are medically ne: Mayo Catheter Reason for mayo catheter: Strict I&O Subjective Patient was seen and evaluated in follow up in the ICU. Patient is intubated and sedated on ventilator. 35% FiO2. Patient is receiving vasopressors for hemodynamic support. Patient opens eyes spontaneously however does not track or follow commands. GLUC 200. Coagulation panel is WNL. Chest x-ray showed pulmonary venous congestion. vital signs Vital Sign Date Time Temp Pulse Resp B/P (MAP) Pulse Ox O2 Delivery O2 Flow Rate FiO2 12/25/24 12:32 64 22 164/72 (102) 97 35 12/25/24 08:00 Mechanical Ventilator+ 12/25/24 04:00 98.8 98.8 12/23/24 09:49 0 Total Intake and Output 12/24/24 12/24/24 12/25/24 15:00 23:00 07:00 Intake Total 822.44 ml 967.4 ml 985.6 ml Output Total 400 ml 1000 ml Balance 822.44 ml 567.4 ml -14.4 ml medications Current Medications Medications Dose Ordered Sig/Julito Route Start Time Stop Time Status Last Admin Dose Admin Propofol 100 ml @ 4.08 mls/hr Q24H IV 12/15/24 05:15 12/25/24 12:23 40.8 MLS/HR Diagnostic Test (Pha) 1 strip Q6HR 12/15/24 12:00 12/25/24 12:23 1 STRIP Insulin Human Regular Q6HR SC 12/15/24 12:00 12/25/24 12:12 3 UNITS Dextrose 50 ml UD PRN IV 12/15/24 07:00 Acetaminophen 650 mg Q6HP PRN GT 12/15/24 13:00 12/15/24 13:21 650 MG Fentanyl Citrate 250 ml @ 2.5 mls/hr Q24H IV 12/16/24 11:15 12/25/24 06:11 20 MLS/HR Enteral Nutritional Formula 1,000 ml 40ML/HR GT 12/16/24 12:30 12/21/24 18:27 1,000 ML Enoxaparin Sodium 150 mg Q12HR SC 12/16/24 22:00 12/25/24 10:15 150 MG Ipratropium [place] 0.5 mg Q6HR NEB 12/17/24 00:00 12/25/24 12:32 0.5 MG Albuterol 2.5 mg Q6HR NEB 12/17/24 00:00 12/25/24 12:32 2.5 MG Pantoprazole Sodium 40 mg DAILY IV 12/17/24 10:00 12/25/24 10:06 40 MG Bumetanide 2 mg BIDD IV 12/18/24 18:00 12/25/24 07:35 2 MG Norepinephrine Bitartrate 250 ml @ 3.75 mls/hr Q24H IV 12/18/24 19:30 12/20/24 15:47 3.75 MLS/HR Isosorbide Dinitrate 20 mg TID PO 12/20/24 22:00 12/24/24 21:22 20 MG Linezolid 300 ml @ 150 mls/hr Q12HR IV 12/20/24 22:00 12/25/24 10:06 150 MLS/HR Meropenem 50 ml @ 17 mls/hr Q8HR IV 12/24/24 00:30 12/25/24 06:18 17 MLS/HR Hydralazine HCl 25 mg TID PO 12/24/24 14:00 12/24/24 21:23 25 MG Methylprednisolone Sodium Succinate 40 mg BID IV 12/24/24 22:00 12/25/24 10:07 40 MG Purified Water 100 ml Q6HR GT 12/24/24 18:00 12/25/24 12:40 100 ML Lactulose 30 ml Q8HR GT 12/25/24 14:00 Metoclopramide HCl 5 mg Q12HR IV 12/25/24 10:00 12/25/24 10:14 5 MG objective GENERAL: Intubated on ventilator. Morbidly obese . EYES: PERRL, EOMI. Anicteric. HENT: Moist mucous membranes. LUNGS: Decreased all breath sounds. CARDIOVASCULAR: Regular rate and rhythm. ABDOMEN: Soft, nontender and nondistended. EXTREMITIES: No edema. SKIN: Warm, dry. laboratory and microbiology Laboratory Tests 12/25/24 03:00 Test 12/25/24 03:00 Range/Units Serum Glucose 223 H 74-106 mg/dL Problem List Accidental medication overdose. Acute encephalopathy. Acute respiratory failure. Respiratory acidosis. Right pleural effusion. Leukocytosis Chest pain. Bradycardia. CHF. CAD. Acute renal failure Hyperkalemia. UTI. DM type 2. Hypertension. Morbid obesity. History of CVA. Assessment/Plan Continued all current supportive medical care. Diuretics with Bumex. DVT and GI prophylactics. IV Hydralazine for SBP >150. IV antibiotics as ordered. Vasopressors for hemodynamic support. Additional plan as per the hospital course. Critical care time of 45 minutes provided to include time spent evaluation of patient at bedside, when appropriate patient/family education for diagnosis, treatment plan, review of pertinent medical information and discussion of care with specialty providers and PCP. Mechanical ventilator parameters, treatment and adjustments have personally been reviewed by me and treatment plan by pull over machine operator has also been reviewed. Dietary Evaluation Review Comments: 1. Pt is on fat energy support through Propofol of 860 kca, the TF needs to be a low fat, high proteiin formula. Suggest using Vital High Protein @45ml/hr, in 24 hr, pt will receive 1080 kca, 94 g protein, This formula will satisfy pt's protein neeeds at 79% and energy needs at 79% including the 860 kcal provided by Propofol running at 32.6ml/hr. Expected Outcomes/Goals: 1. Reassess protein and energy needs when pt is off vent, based on her true weight without fluid retention and possibably an improved kideny function, 2. [facility] with updated protein and energy needs, when medically feasible providing that she passes a SENIOR ABAP DEVELOPER eval. Plan discussed with: Other FRANTZ HOSKINS MD Dec 25, 2024 13:47
[2024-12-26] VITALS (107 sets, daily range): BP systolic 112–196; BP diastolic 47–151; PULSE 57–94; RESP 4–27; TEMP 97–98.2; O2SAT 89–100
[2024-12-26 04:11] LABS: Basophils # (auto) 0 10 ^3/uL (0-0.2); Basophils % (auto) 0.3 % (0.0-2.0); Eosinophils # (auto) 0 10 ^3/uL (0-0.8); Hematocrit 33.2 % (36.0-46.0); Hemoglobin 10.2 g/dL (12.2-16.2); Lymphocytes # (auto) 0.7 10 ^3/uL (0.4-5.4); Lymphocytes % (auto) 6.6 % (10.0-50.0); Mean Corpuscular Hemoglobin 24.3 pg (28.0-32.0); Mean Corpuscular Hgb Conc. 30.8 g/dL (32.0-36.0); Mean Corpuscular Volume 78.9 fL (80.0-100.0); Monocytes # (auto) 0.3 10 ^3/uL (0-1.3); Monocytes % (auto) 2.5 % (0.0-12.0); Neutrophils # (auto) 9.1 10 ^3/uL (1.6-8.6); Neutrophils % (auto) 90.6 % (37.0-80.0); Nucleated Red Blood Cells % 0.1 %; Platelet Count (auto) 382 10^3/uL (140-450); Red Blood Cells 4.21 10^6/uL (4.0-5.20); Red Cell Distribution Width 18.6 % (11.8-14.3); White Blood Cell 10.1 10^3/uL (4.4-10.8)
[2024-12-26 04:14] LABS: Chloride 103 mmol/L (98-107); Potassium 3.8 mmol/L (3.5-5.1); Sodium 141 mmol/L (136-145)
[2024-12-26 04:15] LABS: Anion Gap 9 (5-15); Carbon Dioxide 29 mmol/L (20-31)
[2024-12-26 04:16] LABS: Calcium 9.6 mg/dL (8.7-10.4)
[2024-12-26 04:28] LABS: Blood Urea Nitrogen 30 mg/dL (9-23); Glucose 231 mg/dL (74-106)
--- NOTE | 2024-12-26 05:51 | DVH ---
EXAM: XR Chest, 1 View CLINICAL INDICATION: B/L pulmonary congestion, on mech venti TECHNIQUE: Frontal view of the chest. COMPARISON: XY CHEST XRAY 1 VIEW on DOS: 12/25/24, XY CHEST PORTABLE on DOS: 12/24/24, XY CHEST XRAY 1 VIEW on DOS: 12/23/24, XY CHEST PORTABLE on DOS: 12/23/24, XY CHEST PORTABLE on DOS: 12/22/24 FINDINGS: LUNGS AND PLEURAL SPACES: Mild pulmonary congestion. No consolidation. No pneumothorax. HEART: Unremarkable. No cardiomegaly. MEDIASTINUM: Unremarkable. Normal mediastinal contour. BONES/JOINTS: Unremarkable. No acute fracture. TUBES, LINES AND DEVICES: The endotracheal tube (ETT) is in satisfactory position. Enteric tube ti p in the stomach. OTHER FINDINGS: . IMPRESSION: Mild pulmonary congestion. .
[2024-12-26 08:50] LABS: Base Excess 2.5 mmol/L (-2.0-3.0)
[2024-12-26] MEDS ORDERED: BUMETANIDE 2.5mg/10ml (0.25 mg/ml) INJ IV ONE (10:00)
[2024-12-26] MEDS: BUMETANIDE 1mg/4ml VIAL (0.25mg/ml) IV ONE ×2 (10:28→12:58)
--- NOTE | 2024-12-26 13:55 | DVHPNRES ---
Progress Note Date Seen: Dec 26, 2024 Resident Creating Document: JACKY GARCIA RESIDENT Medical Necessity Reason Pt with a Central, PICC or Fol: Yes The following are medically ne: Mayo Catheter Reason for mayo catheter: Strict I&O Subjective Review of Systems Patient is a 59-year-old female with a past medical history of COPD, insulin dependent type 2 diabetes mellitus, congestive heart failure, coronary artery disease was brought to the hospital via EMS with altered mental status and bradycardia. As per patient's niece who is her take her director card, when she went to her room to give in the afternoon, she found with the patient to be confused and she checked her vitals reported low blood pressure and heart rate in 30s which she suspected might be because she took her blood pressure medications twice, following which she called EMS and the patient was brought to the hospital. She reports patient has been in and out of the hospital since the past 6 months for complains of shortness of breath. The last time she was hospitalized was in [facility] about 2.5-3 months ago following which she was sent to rehab facility and [facility] from where she got discharged about a week ago to home. Patient has been bed-bound since the last 8 years. At home patient has an oxygen concentrator and uses oxygen at 8-10 L per minute. Patient came in with altered mental status and ABG showed respiratory acidosis following which she was intubated and put on mechanical ventilation. Past medical history: COPD with 8-10 L oxygen per minute at home, insulin dependent type 2 diabetes mellitus, congestive heart failure, coronary artery disease, atrial fibrillation Past surgical history: Denies Social history: Patient is bed-bound, her niece as the director card, denies smoking, alcohol, any other drug use Home medications: Amiodarone 200 mg b.i.d., aspirin 81 mg daily, Jardiance 25 mg daily, fluticasone inhaler, Lasix 80 mg, metoprolol succinate 100 mg daily, losartan 100 mg daily, Eliquis 5 mg b.i.d. Review of systems Patient seen and examined at the bedside On mechanical ventilation and sedated B/l diminished breath sounds with crackles, chest x ray showed B/L pulmonary edema similar to yesterday was given 2 doses of bumetanide 1 mg apart from the scheduled dose of bumex before the CPAP trial but the patient failed 2 bowel movements in the day Objective vital signs Vital Sign Date Time Temp Pulse Resp B/P (MAP) Pulse Ox O2 Delivery O2 Flow Rate FiO2 12/26/24 12:58 175/76 12/26/24 12:34 14 94 40 12/26/24 12:00 72 12/26/24 12:00 Mechanical Ventilator+ 12/26/24 08:00 98.2 98.2 Total Intake and Output 12/25/24 12/25/24 12/26/24 15:00 23:00 07:00 Intake Total 863.5 ml 847.16 ml 374.40 ml Output Total 900 ml 550 ml Balance 863.5 ml -52.84 ml -175.60 ml medications Current Medications Medications Dose Ordered Sig/Julito Route Start Time Stop Time Status Last Admin Dose Admin Propofol 100 ml @ 4.08 mls/hr Q24H IV 12/15/24 05:15 12/26/24 11:50 32.64 MLS/HR Diagnostic Test (Pha) 1 strip Q6HR 12/15/24 12:00 12/26/24 06:28 1 STRIP Insulin Human Regular Q6HR SC 12/15/24 12:00 12/26/24 11:26 4 UNITS Dextrose 50 ml UD PRN IV 12/15/24 07:00 Acetaminophen 650 mg Q6HP PRN GT 12/15/24 13:00 12/15/24 13:21 650 MG Fentanyl Citrate 250 ml @ 2.5 mls/hr Q24H IV 12/16/24 11:15 12/26/24 03:43 20 MLS/HR Enteral Nutritional Formula 1,000 ml 40ML/HR GT 12/16/24 12:30 12/21/24 18:27 1,000 ML Enoxaparin Sodium 150 mg Q12HR SC 12/16/24 22:00 12/26/24 09:06 150 MG Ipratropium [place] 0.5 mg Q6HR NEB 12/17/24 00:00 12/26/24 12:34 0.5 MG Albuterol 2.5 mg Q6HR NEB 12/17/24 00:00 12/26/24 12:34 2.5 MG Pantoprazole Sodium 40 mg DAILY IV 12/17/24 10:00 12/26/24 09:02 40 MG Norepinephrine Bitartrate 250 ml @ 3.75 mls/hr Q24H IV 12/18/24 19:30 12/20/24 15:47 3.75 MLS/HR Isosorbide Dinitrate 20 mg TID PO 12/20/24 22:00 12/26/24 11:13 20 MG Linezolid 300 ml @ 150 mls/hr Q12HR IV 12/20/24 22:00 12/26/24 09:13 150 MLS/HR Meropenem 50 ml @ 17 mls/hr Q8HR IV 12/24/24 00:30 12/26/24 05:50 17 MLS/HR Hydralazine HCl 25 mg TID PO 12/24/24 14:00 12/26/24 11:12 25 MG Methylprednisolone Sodium Succinate 40 mg BID IV 12/24/24 22:00 12/26/24 09:06 40 MG Purified Water 100 ml Q6HR GT 12/24/24 18:00 12/26/24 11:23 100 ML Lactulose 30 ml Q8HR GT 12/25/24 14:00 12/25/24 22:16 30 ML Metoclopramide HCl 5 mg Q12HR IV 12/25/24 10:00 12/26/24 09:01 5 MG Bumetanide 2 mg BIDD IV 12/25/24 18:46 12/26/24 05:48 2 MG Examination Constitutional: Patient was morbidly obese, sedated and mechanically ventilated with RASS -4 Gen - no pallor, no icterus, no cyanosis, no clubbing, no LAD, trace edema. Skin - Patients skin is warm and dry. HEENT - normocephalic, atraumatic, moist mucous membranes. Neck - full ROM, no LAD, JVD could not be assessed. Pulmonary - B/L diminished breath sounds with inspiratory crackles, no wheezing cardiovascular - variable S1,S2 heard, no added sounds, no murmurs heard. GI - obese, soft abdomen, large area of dark discoloration below the umbilicus Neurological - currently mechanically ventilated, RASS -3, gag reflex present, pupils equal and reactive laboratory and microbiology Laboratory Tests 12/26/24 03:15 Test 12/26/24 03:15 Range/Units Serum Glucose 231 H 74-106 mg/dL Microbiology Date/Time Source Procedure Growth Status 12/23/24 17:20 Sputum Gram Stain - Final Resulted 12/23/24 17:20 Sputum Respiratory Culture - Preliminary Resulted 12/16/24 13:20 Blood Blood Culture - Final NO GROWTH AFTER 5 DAYS OF INCUBATION. Complete 12/15/24 13:45 Urine - Mayo [place] Urine Culture - Final Escherichia coli - ESBL Complete 12/15/24 11:44 Nose MRSA Screen - Final Methicillin Resistant S.aureus Complete Problem List/Assessment/Plan Problem List/Assessment/Plan Neurology Acute metabolic encephalopathy likely due to hypercapnia - on mechanical ventilation Respiratory Acute on chronic hypoxic/hypercarbic respiratory failure likely due to COPD/LAZARA/OHS On mechanical ventilation, cpap trial today- failed Severe sepsis with acute organ dysfucntion likely due to pneumonia Pneumonia likely due to Gram +/- bacteria Pulmonary edema - on mechanical ventilation - sputum cultures growing MRSA and pseudomonas - IV meropenam and linezolid - bumex 2mg bid - methylprednisolone 40mg bid Cardiovascular Acute on chronic heart failure with preserved ejection fraction Severe right ventricular failure Pulmonary edema likely due to above Hypertensive heart disease with heart failure Bradycardia with AV block ?accidental medication overdose, junctional rhythm, resolved H/o atrial fibrillation - ECG showed bradycardia with prolonged PA interval - Echo shows LVEF 60% with mod degree LV diastolic dysfucntion, mod dilated LA, moderate degree MR, mod dilated and hypokinetic RV associated Dyskinesis with major RV failure - on Bumex - hydralazine 25 mg t.i.d. and isosorbide dinitrate 20 mg t.i.d. - on enoxaparin therapeutic dose Nephrology VIVI on CKD likely prerenal due to VMN - FENa < 1% - BUN and creatinine improving Endocrinology Insulin-dependent type 2 diabetes mellitus with hyperglycemia - on insulin sliding scale - on tube feedings Infectious disease Sepsis likely due to pneumonia/UTI UTI with long-term indwelling Mayo catheter, with ESBL E.coli present on admission MRSA nares positive - urine culture shows ESBL E.Coli - respiratory culture pending - blood cultures showed growth of staph epidermidis which could be a contaminant, repeated cultures - on IV Meropenam - mupirocin ointment 12/23- Patient in the morning was put on a CPAP trial which she tolerated well and was extubated and she was following commands and was put on BiPaP. Post extubation her CO2 level kept increasing and patient was more drowsy and somnolent and had to be reintubated. Diet: Glucerna at 40 mL/hour via NG PUD prophylaxis: Protonix DVT prophylaxis: Enoxaparin Left IJV TLC inserted on 12/15 Mayo's catheter inserted on 12/16 Goals of care discussed with the patient's elder sister for over 30 minutes. Full code Critical care time spent excluding procedures and including cpap trial was: 83 minutes Plan discussed with Dr. Peace Plan discussed with: Other (sister, RN ( mendez )) My Orders My Orders Orders - JACKY GARCIA Procedure Category Date Status Time Chest Xray 1 View XY 12/26/24 Resulted 04:00 Abg W/ Co-Ox RT 12/26/24 Logged 04:00 Bumetanide Injection PHA 12/25/24 In Process (Bumex Injection) 18:46 Potassium LAB 12/26/24 Logged 14:00 Magnesium LAB 12/26/24 Logged 14:00 Dietary Evaluation Review Comments: 1. Pt is on fat energy support through Propofol of 860 kca, the TF needs to be a low fat, high proteiin formula. Suggest using Vital High Protein @45ml/hr, in 24 hr, pt will receive 1080 kca, 94 g protein, This formula will satisfy pt's protein neeeds at 79% and energy needs at 79% including the 860 kcal provided by Propofol running at 32.6ml/hr. Expected Outcomes/Goals: 1. Reassess protein and energy needs when pt is off vent, based on her true weight without fluid retention and possibably an improved kideny function, 2. [facility] with updated protein and energy needs, when medically feasible providing that she passes a ENVIRONMENTAL REMEDIATION CONSULTANT eval. Date of Service: Dec 26, 2024 Billing Provider: FRANNY PEACE MD Common Visit Codes: 83865-QREEEKLE CARE 30-74 MIN, 73132-URENSVOS CARE-EACH +30MIN JACKY GARCIA Dec 26, 2024 13:55 FRANNY PEACE MD Dec 28, 2024 12:51
[2024-12-26 14:29] LABS: Potassium 3.5 mmol/L (3.5-5.1)
[2024-12-26 14:36] LABS: Magnesium 2.2 mg/dL (1.6-2.6)
[2024-12-26 15:14] LABS: Base Excess 2.9 mmol/L (-2.0-3.0)
[2024-12-26] MEDS: POTASSIUM CHL 20MEQ/50ML 50 ML IV SCH (22:04)
--- NOTE | 2024-12-26 23:14 | DVHPN2 ---
Progress Note - Dictate Date Seen: Dec 26, 2024 Medical Necessity Reason Pt with a Central, PICC or Fol: Yes The following are medically ne: Mayo Catheter Reason for mayo catheter: Strict I&O Subjective Patient was seen and evaluated in follow up in the ICU. Patient is intubated and sedated on ventilator. 40% FiO2. Patient is receiving vasopressors for hemodynamic support. Patient is receiving TPN at 40 ml/hr. HCT 33.2, BUN 30, STEAM FITTER HELPER 1.25, GLUC 201. Chest x-ray showed mild pulmonary congestion. vital signs Vital Sign Date Time Temp Pulse Resp B/P (MAP) Pulse Ox O2 Delivery O2 Flow Rate FiO2 12/26/24 11:50 152/71 12/26/24 10:38 70 25 96 40 12/26/24 08:00 Mechanical Ventilator+ 12/26/24 04:00 98.0 98.0 Total Intake and Output 12/25/24 12/25/24 12/26/24 15:00 23:00 07:00 Intake Total 863.5 ml 847.16 ml 374.40 ml Output Total 900 ml 550 ml Balance 863.5 ml -52.84 ml -175.60 ml medications Current Medications Medications Dose Ordered Sig/Julito Route Start Time Stop Time Status Last Admin Dose Admin Propofol 100 ml @ 4.08 mls/hr Q24H IV 12/15/24 05:15 12/26/24 11:50 32.64 MLS/HR Diagnostic Test (Pha) 1 strip Q6HR 12/15/24 12:00 12/26/24 06:28 1 STRIP Insulin Human Regular Q6HR SC 12/15/24 12:00 12/26/24 11:26 4 UNITS Dextrose 50 ml UD PRN IV 12/15/24 07:00 Acetaminophen 650 mg Q6HP PRN GT 12/15/24 13:00 12/15/24 13:21 650 MG Fentanyl Citrate 250 ml @ 2.5 mls/hr Q24H IV 12/16/24 11:15 12/26/24 03:43 20 MLS/HR Enteral Nutritional Formula 1,000 ml 40ML/HR GT 12/16/24 12:30 12/21/24 18:27 1,000 ML Enoxaparin Sodium 150 mg Q12HR SC 12/16/24 22:00 12/26/24 09:06 150 MG Ipratropium [place] 0.5 mg Q6HR NEB 12/17/24 00:00 12/26/24 06:27 0.5 MG Albuterol 2.5 mg Q6HR NEB 12/17/24 00:00 12/26/24 06:27 2.5 MG Pantoprazole Sodium 40 mg DAILY IV 12/17/24 10:00 12/26/24 09:02 40 MG Norepinephrine Bitartrate 250 ml @ 3.75 mls/hr Q24H IV 12/18/24 19:30 12/20/24 15:47 3.75 MLS/HR Isosorbide Dinitrate 20 mg TID PO 12/20/24 22:00 12/26/24 11:13 20 MG Linezolid 300 ml @ 150 mls/hr Q12HR IV 12/20/24 22:00 12/26/24 09:13 150 MLS/HR Meropenem 50 ml @ 17 mls/hr Q8HR IV 12/24/24 00:30 12/26/24 05:50 17 MLS/HR Hydralazine HCl 25 mg TID PO 12/24/24 14:00 12/26/24 11:12 25 MG Methylprednisolone Sodium Succinate 40 mg BID IV 12/24/24 22:00 12/26/24 09:06 40 MG Purified Water 100 ml Q6HR GT 12/24/24 18:00 12/26/24 11:23 100 ML Lactulose 30 ml Q8HR GT 12/25/24 14:00 12/25/24 22:16 30 ML Metoclopramide HCl 5 mg Q12HR IV 12/25/24 10:00 12/26/24 09:01 5 MG Bumetanide 2 mg BIDD IV 12/25/24 18:46 12/26/24 05:48 2 MG objective GENERAL: Intubated on ventilator. Morbidly obese . EYES: PERRL, EOMI. Anicteric. HENT: Moist mucous membranes. LUNGS: Decreased all breath sounds. CARDIOVASCULAR: Regular rate and rhythm. ABDOMEN: Soft, nontender and nondistended. EXTREMITIES: No edema. SKIN: Warm, dry. laboratory and microbiology Laboratory Tests 12/26/24 03:15 Test 12/26/24 03:15 Range/Units Serum Glucose 231 H 74-106 mg/dL Problem List Accidental medication overdose. Acute encephalopathy. Acute respiratory failure. Respiratory acidosis. Right pleural effusion. Leukocytosis Chest pain. Bradycardia. CHF. CAD. Acute renal failure Hyperkalemia. UTI. DM type 2. Hypertension. Morbid obesity. History of CVA. Assessment/Plan Continued all current supportive medical care. Diuretics with Bumex. DVT and GI prophylactics. IV Hydralazine for SBP >150. IV antibiotics as ordered. Vasopressors for hemodynamic support. Additional plan as per the hospital course. Critical care time of 45 minutes provided to include time spent evaluation of patient at bedside, when appropriate patient/family education for diagnosis, treatment plan, review of pertinent medical information and discussion of care with specialty providers and PCP. Mechanical ventilator parameters, treatment and adjustments have personally been reviewed by me and treatment plan by gore maker has also been reviewed. Dietary Evaluation Review Comments: 1. Pt is on fat energy support through Propofol of 860 kca, the TF needs to be a low fat, high proteiin formula. Suggest using Vital High Protein @45ml/hr, in 24 hr, pt will receive 1080 kca, 94 g protein, This formula will satisfy pt's protein neeeds at 79% and energy needs at 79% including the 860 kcal provided by Propofol running at 32.6ml/hr. Expected Outcomes/Goals: 1. Reassess protein and energy needs when pt is off vent, based on her true weight without fluid retention and possibably an improved kideny function, 2. Advance to [facility]-diet with updated protein and energy needs, when medically feasible providing that she passes a METAL CONTAINER MAKER eval. Plan discussed with: FRANTZ Leyva MD Dec 26, 2024 12:13
[2024-12-27] VITALS (109 sets, daily range): BP systolic 98–174; BP diastolic 38–88; PULSE 62–103; RESP 8–25; TEMP 97.7–98.6; O2SAT 75–100
[2024-12-27 03:57] LABS: Basophils # (auto) 0 10 ^3/uL (0-0.2); Eosinophils # (auto) 0 10 ^3/uL (0-0.8); Eosinophils % (auto) 0.1 % (0.0-7.0); Hematocrit 33.1 % (36.0-46.0); Hemoglobin 10.3 g/dL (12.2-16.2); Lymphocytes # (auto) 0.4 10 ^3/uL (0.4-5.4); Lymphocytes % (auto) 4.3 % (10.0-50.0); Mean Corpuscular Hemoglobin 24.5 pg (28.0-32.0); Mean Corpuscular Volume 78.9 fL (80.0-100.0); Monocytes # (auto) 0.3 10 ^3/uL (0-1.3); Monocytes % (auto) 2.9 % (0.0-12.0); Neutrophils % (auto) 92.7 % (37.0-80.0); Nucleated Red Blood Cells % 0.1 %; Platelet Count (auto) 386 10^3/uL (140-450); Red Cell Distribution Width 18.6 % (11.8-14.3); White Blood Cell 9.7 10^3/uL (4.4-10.8)
[2024-12-27 04:00] LABS: Chloride 103 mmol/L (98-107); Potassium 3.7 mmol/L (3.5-5.1); Sodium 142 mmol/L (136-145)
[2024-12-27 04:01] LABS: Anion Gap 9 (5-15); Calcium 9.6 mg/dL (8.7-10.4); Carbon Dioxide 30 mmol/L (20-31)
[2024-12-27 04:07] LABS: Magnesium 2.2 mg/dL (1.6-2.6)
[2024-12-27 04:08] LABS: Blood Urea Nitrogen 29 mg/dL (9-23); Glucose 187 mg/dL (74-106)
--- NOTE | 2024-12-27 06:06 | DVH ---
EXAM: XR Chest, 1 View CLINICAL INDICATION: B/L pulmonary congestion, on vent TECHNIQUE: Frontal view of the chest. COMPARISON: XY CHEST XRAY 1 VIEW on DOS: 12/26/24, XY CHEST XRAY 1 VIEW on DOS: 12/25/24, XY CHEST PO RTABLE on DOS: 12/24/24, XY CHEST XRAY 1 VIEW on DOS: 12/23/24, XY CHEST PORTABLE on DOS: 12/23/24 FINDINGS: LUNGS AND PLEURAL SPACES: See below. HEART: Cardiomegaly with increasing congestion and edema. MEDIASTINUM: Unremarkable. Normal mediastinal contour. BONES/JOINTS: Unremarkable. No acute fracture. TUBES, LINES AND DEVICES: The endotracheal tube (ETT) is in satisfactory position. Enteric tube ti p cannot be seen but is below the diaphragm. Left internal jugular central venous catheter tip in th e superior vena cava. OTHER FINDINGS: . IMPRESSION: Cardiomegaly with increasing congestion and edema.
[2024-12-27 08:13] LABS: Base Excess 3.7 mmol/L (-2.0-3.0)
[2024-12-27] MEDS: BUMETANIDE 1mg/4ml VIAL (0.25mg/ml) IV ONE ×2 (10:00)
[2024-12-27] MEDS: POTASSIUM CHL 20MEQ/50ML 50 ML IV ONE (11:10)
[2024-12-27] MEDS: MICAFUNGIN SODIUM 100 MG in SODIUM CHL 0.9% 100 ML IV ONE (12:07)
[2024-12-27] MEDS: acetaZOLAMIDE SODIUM 500 MG VL IV ONE (12:07)
[2024-12-27 12:08] LABS: Base Excess 3.5 mmol/L (-2.0-3.0)
[2024-12-27] MEDS: hydrALAZINE HCL 25 MG TAB PO SCH (13:52)
[2024-12-27] MEDS: ISOSORBIDE DINITRATE 10 MG TAB PO SCH ×2 (13:52→21:08)
--- NOTE | 2024-12-27 15:46 | DVHPNRES ---
Progress Note Date Seen: Dec 27, 2024 Resident Creating Document: JACKY GARCIA RESIDENT Medical Necessity Reason Pt with a Central, PICC or Fol: Yes The following are medically ne: Mayo Catheter Reason for mayo catheter: Strict I&O Subjective Review of Systems Patient is a 59-year-old female with a past medical history of COPD, insulin dependent type 2 diabetes mellitus, congestive heart failure, coronary artery disease was brought to the hospital via EMS with altered mental status and bradycardia. As per patient's niece who is her take her ocular care aide, when she went to her room to give in the afternoon, she found with the patient to be confused and she checked her vitals reported low blood pressure and heart rate in 30s which she suspected might be because she took her blood pressure medications twice, following which she called EMS and the patient was brought to the hospital. She reports patient has been in and out of the hospital since the past 6 months for complains of shortness of breath. The last time she was hospitalized was in [facility] about 2.5-3 months ago following which she was sent to rehab facility and [facility] from where she got discharged about a week ago to home. Patient has been bed-bound since the last 8 years. At home patient has an oxygen concentrator and uses oxygen at 8-10 L per minute. Patient came in with altered mental status and ABG showed respiratory acidosis following which she was intubated and put on mechanical ventilation. Past medical history: COPD with 8-10 L oxygen per minute at home, insulin dependent type 2 diabetes mellitus, congestive heart failure, coronary artery disease, atrial fibrillation Past surgical history: Denies Social history: Patient is bed-bound, her niece as the ocular care aide, denies smoking, alcohol, any other drug use Home medications: Amiodarone 200 mg b.i.d., aspirin 81 mg daily, Jardiance 25 mg daily, fluticasone inhaler, Lasix 80 mg, metoprolol succinate 100 mg daily, losartan 100 mg daily, Eliquis 5 mg b.i.d. Review of systems Patient seen and examined at the bedside On mechanical ventilation and sedated B/l diminished breath sounds with crackles, chest x ray showed B/L pulmonary edema similar to yesterday was given a dose of bumetanide 1 mg apart from the scheduled dose of bumex before the CPAP trial but the patient was not able to meet criteria and was again put on 2 bowel movements in the day Objective vital signs Vital Sign Date Time Temp Pulse Resp B/P (MAP) Pulse Ox O2 Delivery O2 Flow Rate FiO2 12/27/24 14:35 84 24 126/55 (78) 95 35 12/27/24 14:00 Mechanical Ventilator+ 12/27/24 10:10 35.0 12/27/24 08:00 98.5 98.5 Total Intake and Output 12/26/24 12/26/24 12/27/24 15:00 23:00 07:00 Intake Total 17 ml 561.04 ml 848.08 ml Output Total 1400 ml 800 ml Balance 17 ml -838.96 ml 48.08 ml medications Current Medications Medications Dose Ordered Sig/Julito Route Start Time Stop Time Status Last Admin Dose Admin Propofol 100 ml @ 4.08 mls/hr Q24H IV 12/15/24 05:15 12/27/24 06:43 24.48 MLS/HR Diagnostic Test (Pha) 1 strip Q6HR 12/15/24 12:00 12/27/24 11:48 1 STRIP Insulin Human Regular Q6HR SC 12/15/24 12:00 12/27/24 05:30 3 UNITS Dextrose 50 ml UD PRN IV 12/15/24 07:00 Acetaminophen 650 mg Q6HP PRN GT 12/15/24 13:00 12/15/24 13:21 650 MG Fentanyl Citrate 250 ml @ 2.5 mls/hr Q24H IV 12/16/24 11:15 12/26/24 19:22 20 MLS/HR Enteral Nutritional Formula 1,000 ml 40ML/HR GT 12/16/24 12:30 12/21/24 18:27 1,000 ML Enoxaparin Sodium 150 mg Q12HR SC 12/16/24 22:00 12/27/24 09:44 150 MG Ipratropium [place] 0.5 mg Q6HR NEB 12/17/24 00:00 12/27/24 11:59 0.5 MG Albuterol 2.5 mg Q6HR NEB 12/17/24 00:00 12/27/24 11:59 2.5 MG Pantoprazole Sodium 40 mg DAILY IV 12/17/24 10:00 12/27/24 09:44 40 MG Norepinephrine Bitartrate 250 ml @ 3.75 mls/hr Q24H IV 12/18/24 19:30 12/20/24 15:47 3.75 MLS/HR Meropenem 50 ml @ 17 mls/hr Q8HR IV 12/24/24 00:30 12/27/24 13:47 17 MLS/HR Methylprednisolone Sodium Succinate 40 mg BID IV 12/24/24 22:00 12/27/24 09:45 40 MG Purified Water 100 ml Q6HR GT 12/24/24 18:00 12/27/24 05:32 100 ML Lactulose 30 ml Q8HR GT 12/25/24 14:00 12/26/24 14:19 30 ML Metoclopramide HCl 5 mg Q12HR IV 12/25/24 10:00 12/27/24 09:44 5 MG Bumetanide 2 mg BIDD IV 12/25/24 18:46 12/27/24 05:31 2 MG Hydralazine HCl 50 mg TID PO 12/27/24 14:00 12/27/24 13:52 50 MG Micafungin Sodium 100 mg/Sodium Chloride 100 ml @ 100 mls/hr DAILY IV 12/28/24 10:00 Isosorbide Dinitrate 20 mg TID PO 12/27/24 22:00 UNV Metolazone 5 mg DAILY PO 12/28/24 06:00 UNV Spironolactone 25 mg BIDD PO 12/27/24 18:00 UNV Examination Constitutional: Patient was morbidly obese, sedated and mechanically ventilated with RASS -4 Gen - no pallor, no icterus, no cyanosis, no clubbing, no LAD, trace edema. Skin - Patients skin is warm and dry. HEENT - normocephalic, atraumatic, moist mucous membranes. Neck - full ROM, no LAD, JVD could not be assessed. Pulmonary - B/L diminished breath sounds with inspiratory crackles, no wheezing cardiovascular - variable S1,S2 heard, no added sounds, no murmurs heard. GI - obese, soft abdomen, large area of dark discoloration below the umbilicus Neurological - currently mechanically ventilated, RASS -3, gag reflex present, pupils equal and reactive laboratory and microbiology Laboratory Tests 12/27/24 03:14 Test 12/27/24 03:14 Range/Units Serum Glucose 187 H 74-106 mg/dL Microbiology Date/Time Source Procedure Growth Status 12/23/24 17:20 Sputum Gram Stain - Final Complete 12/23/24 17:20 Respiratory Culture - Final Presumptive [place] albicans Complete 12/16/24 13:20 Blood Blood Culture - Final NO GROWTH AFTER 5 DAYS OF INCUBATION. Complete 12/15/24 13:45 Urine - Mayo [place] Urine Culture - Final Escherichia coli - ESBL Complete 12/15/24 11:44 Nose MRSA Screen - Final Methicillin Resistant S.aureus Complete Problem List/Assessment/Plan Problem List/Assessment/Plan Neurology Acute metabolic encephalopathy likely due to hypercapnia - on mechanical ventilation Respiratory Acute on chronic hypoxic/hypercarbic respiratory failure likely due to COPD/LAZARA/OHS On mechanical ventilation Severe sepsis with acute organ dysfucntion likely due to pneumonia Pneumonia likely due to Gram +/- bacteria Pulmonary edema - on mechanical ventilation - sputum cultures growing MRSA and pseudomonas, cleared up - repeat sputum cultures growing asia - IV meropenam - bumex 2mg bid - methylprednisolone 40mg bid Cardiovascular Acute on chronic heart failure with preserved ejection fraction Severe right ventricular failure d/t ?underlying left heart failure ?LAZARA ?COPD , unknown chronicity, likely present on admission Pulmonary edema likely due to above Hypertensive heart disease with heart failure Bradycardia with AV block ?accidental medication overdose, junctional rhythm, resolved H/o atrial fibrillation - ECG showed bradycardia with prolonged DE interval - Echo shows LVEF 60% with mod degree LV diastolic dysfucntion, mod dilated LA, moderate degree MR, mod dilated and hypokinetic RV associated Dyskinesis with major RV failure - on Bumex - hydralazine 50 mg t.i.d. and isosorbide dinitrate 20 mg t.i.d. - on enoxaparin therapeutic dose - added metolazone 5mg daily and spironolactone 25mg bid Nephrology VIVI on CKD likely prerenal due to VMN - FENa < 1% - BUN and creatinine improving Endocrinology Insulin-dependent type 2 diabetes mellitus with hyperglycemia - on insulin sliding scale - on tube feedings Infectious disease Sepsis likely due to pneumonia/UTI UTI with long-term indwelling Mayo catheter, with ESBL E.coli present on admission MRSA nares positive - urine culture shows ESBL E.Coli - respiratory culture pending - blood cultures showed growth of staph epidermidis which could be a contaminant, repeated cultures - on IV Meropenam - mupirocin ointment 12/23- Patient in the morning was put on a CPAP trial which she tolerated well and was extubated and she was following commands and was put on BiPaP. Post extubation her CO2 level kept increasing and patient was more drowsy and somnolent and had to be reintubated. 12/26- patient failed CPAP trial 12/27- patient was put on CPAP but could not meet criteria and was put on ventilator again. we will continue to diurese her. PICC line to be placed today Diet: Glucerna at 40 mL/hour via NG PUD prophylaxis: Protonix DVT prophylaxis: Enoxaparin Left IJV TLC inserted on 12/15 Mayo's catheter inserted on 12/16 Goals of care discussed with the patient's elder sister and niece for over 30 minutes. Full code Critical care time spent excluding procedures: 45 minutes Plan discussed with Dr. Wade Plan discussed with: Other (niece (ana cristina), RN ( Rochelle )) My Orders My Orders Orders - JACKY GARCIA RESIDENT Procedure Category Date Status Time Abg W/ Co-Ox RT 12/27/24 Logged 04:00 Chest Xray 1 View XY 12/27/24 Resulted 04:00 Communication Order ORDERS 12/27/24 Transmitted 08:03 Hydralazine Hcl PHA 12/27/24 In Process Tablet (Apresoline 14:00 Micafungin Sodium PHA 12/28/24 In Process (Mycamine) 10:00 Abg W/ Co-Ox RT 12/27/24 Logged 11:21 Isosorbide Dinitrate PHA 12/27/24 Logged Tablet (Isordil Tab 22:00 Metolazone (Zaroxolyn) PHA 12/28/24 Logged 06:00 Basic Metabolic Panel LAB 12/28/24 Verified 10:00 Basic Metabolic Panel LAB 12/28/24 Verified 22:00 Basic Metabolic Panel LAB 12/29/24 Verified 10:00 Basic Metabolic Panel LAB 12/29/24 Verified 22:00 Magnesium LAB 12/28/24 Verified 10:00 Magnesium LAB 12/28/24 Verified 22:00 Magnesium LAB 12/29/24 Verified 10:00 Magnesium LAB 12/29/24 Verified 22:00 Spironolactone PHA 12/27/24 Logged (Aldactone) 18:00 Dietary Evaluation Review Comments: 1. Pt is on fat energy support through Propofol of 860 kca, the TF needs to be a low fat, high proteiin formula. Suggest using Vital High Protein @45ml/hr, in 24 hr, pt will receive 1080 kca, 94 g protein, This formula will satisfy pt's protein neeeds at 79% and energy needs at 79% including the 860 kcal provided by Propofol running at 32.6ml/hr. Expected Outcomes/Goals: 1. Reassess protein and energy needs when pt is off vent, based on her true weight without fluid retention and possibably an improved kideny function, 2. [facility] with updated protein and energy needs, when medically feasible providing that she passes a PILE TRIMMER eval. JACKY GARCIA RESIDENT Dec 27, 2024 15:46
[2024-12-27] MEDS: LIDOCAINE 1% (LOCAL ANESTH.) PF 5ml SDV ID ONE (17:50)
[2024-12-27] MEDS: SPIRONOLACTONE 25 MG TAB PO SCH (18:00)
--- NOTE | 2024-12-27 21:15 | DVHPN2 ---
Progress Note - Dictate Date Seen: Dec 27, 2024 Medical Necessity Reason Pt with a Central, PICC or Fol: Yes The following are medically ne: Mayo Catheter Reason for mayo catheter: Strict I&O Subjective Patient was seen and evaluated in follow up in the ICU. Patient is intubated and sedated on ventilator. 35% FiO2. Patient remains on vasopressors for hemodynamic support. Patient is planned for CPAP trial today. BUN 29, RETAIL MANAGEMENT TRAINEE 1.16. Chest x-ray shows cardiomegaly with increasing congestion and edema. vital signs Vital Sign Date Time Temp Pulse Resp B/P (MAP) Pulse Ox O2 Delivery O2 Flow Rate FiO2 12/27/24 12:07 146/58 12/27/24 11:59 78 24 96 35 12/27/24 08:00 Mechanical Ventilator+ 12/27/24 04:00 97.7 97.7 Total Intake and Output 12/26/24 12/26/24 12/27/24 15:00 23:00 07:00 Intake Total 17 ml 561.04 ml 848.08 ml Output Total 1400 ml 800 ml Balance 17 ml -838.96 ml 48.08 ml medications Current Medications Medications Dose Ordered Sig/Julito Route Start Time Stop Time Status Last Admin Dose Admin Propofol 100 ml @ 4.08 mls/hr Q24H IV 12/15/24 05:15 12/27/24 06:43 24.48 MLS/HR Diagnostic Test (Pha) 1 strip Q6HR 12/15/24 12:00 12/27/24 11:48 1 STRIP Insulin Human Regular Q6HR SC 12/15/24 12:00 12/27/24 05:30 3 UNITS Dextrose 50 ml UD PRN IV 12/15/24 07:00 Acetaminophen 650 mg Q6HP PRN GT 12/15/24 13:00 12/15/24 13:21 650 MG Fentanyl Citrate 250 ml @ 2.5 mls/hr Q24H IV 12/16/24 11:15 12/26/24 19:22 20 MLS/HR Enteral Nutritional Formula 1,000 ml 40ML/HR GT 12/16/24 12:30 12/21/24 18:27 1,000 ML Enoxaparin Sodium 150 mg Q12HR SC 12/16/24 22:00 12/27/24 09:44 150 MG Ipratropium [place] 0.5 mg Q6HR NEB 12/17/24 00:00 12/27/24 11:59 0.5 MG Albuterol 2.5 mg Q6HR NEB 12/17/24 00:00 12/27/24 11:59 2.5 MG Pantoprazole Sodium 40 mg DAILY IV 12/17/24 10:00 12/27/24 09:44 40 MG Norepinephrine Bitartrate 250 ml @ 3.75 mls/hr Q24H IV 12/18/24 19:30 12/20/24 15:47 3.75 MLS/HR Meropenem 50 ml @ 17 mls/hr Q8HR IV 12/24/24 00:30 12/27/24 05:30 17 MLS/HR Methylprednisolone Sodium Succinate 40 mg BID IV 12/24/24 22:00 12/27/24 09:45 40 MG Purified Water 100 ml Q6HR GT 12/24/24 18:00 12/27/24 05:32 100 ML Lactulose 30 ml Q8HR GT 12/25/24 14:00 12/26/24 14:19 30 ML Metoclopramide HCl 5 mg Q12HR IV 12/25/24 10:00 12/27/24 09:44 5 MG Bumetanide 2 mg BIDD IV 12/25/24 18:46 12/27/24 05:31 2 MG Hydralazine HCl 50 mg TID PO 12/27/24 14:00 Isosorbide Dinitrate 30 mg TID PO 12/27/24 14:00 Micafungin Sodium 100 mg/Sodium Chloride 100 ml @ 100 mls/hr DAILY IV 12/28/24 10:00 objective GENERAL: Intubated on ventilator. Morbidly obese . EYES: PERRL, EOMI. Anicteric. HENT: Moist mucous membranes. LUNGS: Decreased all breath sounds. CARDIOVASCULAR: Regular rate and rhythm. ABDOMEN: Soft, nontender and nondistended. EXTREMITIES: No edema. SKIN: Warm, dry. laboratory and microbiology Laboratory Tests 12/27/24 03:14 Test 12/27/24 03:14 Range/Units Serum Glucose 187 H 74-106 mg/dL Problem List Accidental medication overdose. Acute encephalopathy. Acute respiratory failure. Respiratory acidosis. Right pleural effusion. Leukocytosis Chest pain. Bradycardia. CHF. CAD. Acute renal failure Hyperkalemia. UTI. DM type 2. Hypertension. Morbid obesity. History of CVA. Assessment/Plan Continued all current supportive medical care. Diuretics with Bumex. DVT and GI prophylactics. IV Hydralazine for SBP >150. IV antibiotics as ordered. Vasopressors for hemodynamic support. Additional plan as per the hospital course. Critical care time of 45 minutes provided to include time spent evaluation of patient at bedside, when appropriate patient/family education for diagnosis, treatment plan, review of pertinent medical information and discussion of care with specialty providers and PCP. Mechanical ventilator parameters, treatment and adjustments have personally been reviewed by me and treatment plan by scrap drop engineer has also been reviewed. Dietary Evaluation Review Comments: 1. Pt is on fat energy support through Propofol of 860 kca, the TF needs to be a low fat, high proteiin formula. Suggest using Vital High Protein @45ml/hr, in 24 hr, pt will receive 1080 kca, 94 g protein, This formula will satisfy pt's protein neeeds at 79% and energy needs at 79% including the 860 kcal provided by Propofol running at 32.6ml/hr. Expected Outcomes/Goals: 1. Reassess protein and energy needs when pt is off vent, based on her true weight without fluid retention and possibably an improved kideny function, 2. [facility] with updated protein and energy needs, when medically feasible providing that she passes a LEGAL EXAMINER eval. Plan discussed with: FRANTZ Leyva MD Dec 27, 2024 12:57
[2024-12-27] MEDS: SODIUM CHLOR 0.9% PF (SALINE LOCK) 10ML VIAL/SYR IV SCH (22:00)
--- NOTE | 2024-12-27 22:39 | DVH ---
CLINICAL INDICATION: s/p lower extremity picc placement TECHNIQUE: 4 radiographic views of the right femur were obtained. Comparison: None FINDINGS/IMPRESSION: There is no evidence of acute fracture or dislocation. Catheter seen in the soft tissues of the medial right femur. The visualized joint space is well maintained. The alignment is anatomical. There is no radiopaque foreign body. HS:Y
[2024-12-28] VITALS (97 sets, daily range): BP systolic 118–187; BP diastolic 54–85; PULSE 59–85; RESP 8–28; TEMP 98–98.5; O2SAT 89–100
[2024-12-28 04:08] LABS: Basophils % (auto) 0.6 % (0.0-2.0); Eosinophils # (auto) 0.2 10 ^3/uL (0-0.8); Eosinophils % (auto) 2.3 % (0.0-7.0); Monocytes # (auto) 0.8 10 ^3/uL (0-1.3); Neutrophils % (auto) 65.9 % (37.0-80.0)
[2024-12-28 04:14] LABS: Basophils # (auto) 0.1 10 ^3/uL (0-0.2); Hematocrit 33.4 % (36.0-46.0); Hemoglobin 10.4 g/dL (12.2-16.2); Lymphocytes # (auto) 1.8 10 ^3/uL (0.4-5.4); Lymphocytes % (auto) 21.8 % (10.0-50.0); Mean Corpuscular Hemoglobin 24.4 pg (28.0-32.0); Mean Corpuscular Hgb Conc. 31.1 g/dL (32.0-36.0); Mean Corpuscular Volume 78.7 fL (80.0-100.0); Monocytes % (auto) 9.4 % (0.0-12.0); Neutrophils # (auto) 5.5 10 ^3/uL (1.6-8.6); Nucleated Red Blood Cells % 0.2 %; Platelet Count (auto) 357 10^3/uL (140-450); Red Blood Cells 4.24 10^6/uL (4.0-5.20); Red Cell Distribution Width 18.9 % (11.8-14.3); White Blood Cell 8.3 10^3/uL (4.4-10.8)
--- NOTE | 2024-12-28 04:59 | DVH ---
Exam: US US GUIDED VASCULAR ACCESS Date: 12/27/2024 01:58 PM Clinical History: picc line placement RLE Comparison: None Findings: Targeted sonographic evaluation of the right basilic vein was obtained utilizing grayscale and color Doppler imaging. IMPRESSION: Sonographic assistance for central line placement. Please refer to procedural report for detailed fin dings.
[2024-12-28] MEDS: metOLazone 5 MG TAB PO SCH (06:23)
--- NOTE | 2024-12-28 06:41 | DVH ---
CHEST RADIOGRAPH Indication: B/L pulmonary congestion, on vent Technique: Single frontal view of the chest was obtained COMPARISON: XY CHEST XRAY 1 VIEW on DOS: 12/27/24, XY CHEST XRAY 1 VIEW on DOS: 12/26/24, XY CHEST XRAY 1 VIEW on DOS: 12/25/24, XY CHEST PORTABLE on DOS: 12/24/24, XY CHEST XRAY 1 VIEW on DOS: 12/23/24 FINDINGS: Lines and Tubes: Unchanged. The left internal jugular central venous catheter tip remains laterally d irected to the right. Lungs: Persistent diffuse increased prominence of the pulmonary vasculature with increased opacity wi thin the left omari thorax, relative to the right. Small bilateral pleural effusions are not excluded. No pneumothorax. Cardiomediastinal contours: Stable cardiomegaly. Bones: Unremarkable IMPRESSION: 1. Stable appearing diffuse increased prominence of the pulmonary vasculature and opacification of th e left hemithorax relative to the right. 2. Stable cardiomegaly. 3. Lines and tubes unchanged.
[2024-12-28 07:41] LABS: Base Excess 3.1 mmol/L (-2.0-3.0)
[2024-12-28] MEDS ORDERED: MICAFUNGIN SODIUM 100 MG in SODIUM CHL 0.9% 100 ML IV SCH (10:00)
--- NOTE | 2024-12-28 10:37 | DVHPN2 ---
Progress Note - Dictate Date Seen: Dec 28, 2024 Medical Necessity Reason Pt with a Central, PICC or Fol: Yes The following are medically ne: Mayo Catheter Reason for mayo catheter: Strict I&O vital signs Vital Sign Date Time Temp Pulse Resp B/P (MAP) Pulse Ox O2 Delivery O2 Flow Rate FiO2 12/28/24 09:15 98.5 62 23 98.5 12/28/24 08:45 96 12/28/24 08:00 Mechanical Ventilator+ 35 35 12/27/24 10:10 35.0 Total Intake and Output 12/27/24 12/27/24 12/28/24 15:00 23:00 07:00 Intake Total 39.74 ml 90 ml 280 ml Output Total 1350 ml 1000 ml Balance 39.74 ml -1260 ml -720 ml medications Current Medications Medications Dose Ordered Sig/Julito Route Start Time Stop Time Status Last Admin Dose Admin Propofol 100 ml @ 4.08 mls/hr Q24H IV 12/15/24 05:15 12/27/24 06:43 24.48 MLS/HR Diagnostic Test (Pha) 1 strip Q6HR 12/15/24 12:00 12/28/24 06:12 1 STRIP Insulin Human Regular Q6HR SC 12/15/24 12:00 12/28/24 06:20 3 UNITS Dextrose 50 ml UD PRN IV 12/15/24 07:00 Acetaminophen 650 mg Q6HP PRN GT 12/15/24 13:00 12/15/24 13:21 650 MG Fentanyl Citrate 250 ml @ 2.5 mls/hr Q24H IV 12/16/24 11:15 12/27/24 23:09 10 MLS/HR Enteral Nutritional Formula 1,000 ml 40ML/HR GT 12/16/24 12:30 12/21/24 18:27 1,000 ML Enoxaparin Sodium 150 mg Q12HR SC 12/16/24 22:00 12/28/24 09:03 150 MG Ipratropium [place] 0.5 mg Q6HR NEB 12/17/24 00:00 12/28/24 05:51 0.5 MG Albuterol 2.5 mg Q6HR NEB 12/17/24 00:00 12/28/24 05:51 2.5 MG Pantoprazole Sodium 40 mg DAILY IV 12/17/24 10:00 12/28/24 09:02 40 MG Norepinephrine Bitartrate 250 ml @ 3.75 mls/hr Q24H IV 12/18/24 19:30 12/20/24 15:47 3.75 MLS/HR Meropenem 50 ml @ 17 mls/hr Q8HR IV 12/24/24 00:30 12/28/24 06:03 17 MLS/HR Methylprednisolone Sodium Succinate 40 mg BID IV 12/24/24 22:00 12/28/24 09:04 40 MG Purified Water 100 ml Q6HR GT 12/24/24 18:00 12/28/24 06:11 100 ML Lactulose 30 ml Q8HR GT 12/25/24 14:00 12/26/24 14:19 30 ML Metoclopramide HCl 5 mg Q12HR IV 12/25/24 10:00 12/28/24 09:03 5 MG Bumetanide 2 mg BIDD IV 12/25/24 18:46 12/28/24 06:07 2 MG Hydralazine HCl 50 mg TID PO 12/27/24 14:00 12/28/24 06:10 50 MG Isosorbide Dinitrate 20 mg TID PO 12/27/24 22:00 12/28/24 06:09 20 MG Metolazone 5 mg DAILY PO 12/28/24 06:00 12/28/24 09:03 5 MG Spironolactone 25 mg BIDD PO 12/27/24 18:00 12/28/24 06:09 25 MG Sodium Chloride 10 ml QSHIFT@10,22 IV 12/27/24 22:00 12/28/24 09:04 10 ML laboratory and microbiology Laboratory Tests 12/28/24 03:00 12/27/24 18:17 12/27/24 03:14 Test 12/27/24 03:14 Range/Units Serum Glucose 187 H 74-106 mg/dL Assessment/Plan pss delivery professional rounds 59 yo AAF obesity CHF re-intubated for respiratory failure atelectases labs and CXR reviewed persistent opacities pulm edema pt completed abx following commands management daily cpap trials abg and weaning parameters cont steroids diurese monitor BUN/Cr replace lytes gi and dvt proph crit care time 3 5min Dietary Evaluation Review Comments: 1. Pt is on fat energy support through Propofol of 860 kca, the TF needs to be a low fat, high proteiin formula. Suggest using Vital High Protein @45ml/hr, in 24 hr, pt will receive 1080 kca, 94 g protein, This formula will satisfy pt's protein neeeds at 79% and energy needs at 79% including the 860 kcal provided by Propofol running at 32.6ml/hr. Expected Outcomes/Goals: 1. Reassess protein and energy needs when pt is off vent, based on her true weight without fluid retention and possibably an improved kideny function, 2. [facility] updated protein and energy needs, when medically feasible providing that she passes a DATA MANAGEMENT CONSULTANT eval. Plan discussed with: Other (rn) IAN HASTINGS MD Dec 28, 2024 10:37
--- NOTE | 2024-12-28 10:46 | DVHPN2 ---
Subjective Update 12/28 12/28- patient feels extubation on Monday. She has been getting diuresis since then. She was on Bumex IV b.i.d., yesterday added metolazone. She has been getting extra p.r.n. diuresis. Today chest x-ray still appearing hazy opacities, urine clear, creatinine improving. We will give another extra of push off Bumex with Diamox. BNP stable, ABG stable CPAP trial today. On visit patient is on spontaneous. She was following commands. Agreeing that she wants to be extubated. We will wait for RT parameters to see if she qualifies. Otherwise continue primary team's management plan. Reviewed: H&P Changes from previous H/P or p: No Changes General: Per HPI Objective Vitals Vital Signs Date Time Temp Pulse Resp B/P (MAP) Pulse Ox O2 Delivery O2 Flow Rate FiO2 12/28/24 09:15 98.5 62 23 98.5 12/28/24 08:45 96 12/28/24 08:00 Mechanical Ventilator+ 35 35 12/27/24 10:10 35.0 Intake/Output Intake and Output 12/28/24 07:00 Intake Total 409.74 ml Output Total 2350 ml Balance -1940.26 ml Intake Oral 290 ml IV Total 119.74 ml Output Urine Total 2350 ml Exam Constitutional: Patient was morbidly obese, sedated and mechanically ventilated with RASS -4 Gen - no pallor, no icterus, no cyanosis, no clubbing, no LAD, trace edema. Skin - Patients skin is warm and dry. HEENT - normocephalic, atraumatic, moist mucous membranes. Neck - full ROM, no LAD, JVD could not be assessed. Pulmonary - B/L diminished breath sounds with inspiratory crackles, no wheezing cardiovascular - variable S1,S2 heard, no added sounds, no murmurs heard. GI - obese, soft abdomen, large area of dark discoloration below the umbilicus Neurological - currently mechanically ventilated, RASS -4, gag reflex present, pupils equal and reactive Medications Current Medications Medications Dose Ordered Sig/Julito Route Start Time Stop Time Status Last Admin Dose Admin Propofol 100 ml @ 4.08 mls/hr Q24H IV 12/15/24 05:15 12/27/24 06:43 24.48 MLS/HR Diagnostic Test (Pha) 1 strip Q6HR 12/15/24 12:00 12/28/24 06:12 1 STRIP Insulin Human Regular Q6HR SC 12/15/24 12:00 12/28/24 06:20 3 UNITS Dextrose 50 ml UD PRN IV 12/15/24 07:00 Acetaminophen 650 mg Q6HP PRN GT 12/15/24 13:00 12/15/24 13:21 650 MG Fentanyl Citrate 250 ml @ 2.5 mls/hr Q24H IV 12/16/24 11:15 12/27/24 23:09 10 MLS/HR Enteral Nutritional Formula 1,000 ml 40ML/HR GT 12/16/24 12:30 12/21/24 18:27 1,000 ML Enoxaparin Sodium 150 mg Q12HR SC 12/16/24 22:00 12/28/24 09:03 150 MG Ipratropium [place] 0.5 mg Q6HR NEB 12/17/24 00:00 12/28/24 05:51 0.5 MG Albuterol 2.5 mg Q6HR NEB 12/17/24 00:00 12/28/24 05:51 2.5 MG Pantoprazole Sodium 40 mg DAILY IV 12/17/24 10:00 12/28/24 09:02 40 MG Norepinephrine Bitartrate 250 ml @ 3.75 mls/hr Q24H IV 12/18/24 19:30 12/20/24 15:47 3.75 MLS/HR Meropenem 50 ml @ 17 mls/hr Q8HR IV 12/24/24 00:30 12/28/24 06:03 17 MLS/HR Methylprednisolone Sodium Succinate 40 mg BID IV 12/24/24 22:00 12/28/24 09:04 40 MG Purified Water 100 ml Q6HR GT 12/24/24 18:00 12/28/24 06:11 100 ML Lactulose 30 ml Q8HR GT 12/25/24 14:00 12/26/24 14:19 30 ML Metoclopramide HCl 5 mg Q12HR IV 12/25/24 10:00 12/28/24 09:03 5 MG Bumetanide 2 mg BIDD IV 12/25/24 18:46 12/28/24 06:07 2 MG Hydralazine HCl 50 mg TID PO 12/27/24 14:00 12/28/24 06:10 50 MG Isosorbide Dinitrate 20 mg TID PO 12/27/24 22:00 12/28/24 06:09 20 MG Metolazone 5 mg DAILY PO 12/28/24 06:00 12/28/24 09:03 5 MG Spironolactone 25 mg BIDD PO 12/27/24 18:00 12/28/24 06:09 25 MG Sodium Chloride 10 ml QSHIFT@10,22 IV 12/27/24 22:00 12/28/24 09:04 10 ML Laboratory Results Laboratory Tests 12/27/24 03:14 12/27/24 18:17 12/28/24 03:00 Urinalysis Test 12/14/24 23:16 12/15/24 13:45 Urine WBC Clumps Present /hpf (None Seen) Urine Calcium Oxalate Crystals Few (None Seen) Urine Hyaline Casts Many /lpf (0 - 2) Urine Mucus Few (None Seen) Urine Color Light-yellow (Yellow) Urine Clarity Turbid (Clear) H Urine pH 6.5 (5.0-9.0) Urine Specific [place] 1.011 (1.001-1.035) Urine Protein Trace (Negative) H Urine Ketones Negative (Negative) Urine Blood Trace /uL (Negative) H Urine Nitrite Negative (Negative) Urine Bilirubin Negative (Negative) Urine Urobilinogen Normal mg/dL (Negative) Urine Leukocyte Esterase 3+ /uL (Negative) Urine RBC 4 /hpf (0 - 4) Urine Microscopic WBC 39 /HPF (0-5) H Urine Squamous Epithelial Cells Few /hpf (<5) Urine Bacteria Many /hpf (None Seen) H Urine Creatinine 51.30 mg/dL (30.0-125.0) Urine Protein/Creatinine Ratio 0.67 Urine Sodium 16 mmol/L (40-220) L Urine Glucose Normal mg/dL (Normal) Urine Total Protein 34.5 mg/dL (1-14) H Blood Gas Results Test 12/27/24 11:33 12/28/24 07:29 Arterial Blood pH 7.328 (7.350-7.450) 7.391 (7.350-7.450) FiO2 % 35.0 35.0 Microbiology Microbiology Date/Time Source Procedure Growth Status 12/23/24 17:20 Sputum Gram Stain - Final Complete 12/23/24 17:20 Respiratory Culture - Final Presumptive [place] albicans Complete 12/16/24 13:20 Blood Blood Culture - Final NO GROWTH AFTER 5 DAYS OF INCUBATION. Complete 12/15/24 13:45 Urine - [place] Urine Culture - Final Escherichia coli - ESBL Complete 12/15/24 11:44 Nose MRSA Screen - Final Methicillin Resistant S.aureus Complete Labs and/or images reviewed: Labs reviewed by me, Image(s) reviewed by me Assessment/Plan Assessment/Plan 12/28- patient feels extubation on Monday. She has been getting diuresis since then. She was on Bumex IV b.i.d., yesterday added metolazone. She has been getting extra p.r.n. diuresis. Today chest x-ray still appearing hazy opacities, urine clear, creatinine improving. We will give another extra of push off Bumex with Diamox. BNP stable, ABG stable CPAP trial today. On visit patient is on spontaneous. She was following commands. Agreeing that she wants to be extubated. We will wait for RT parameters to see if she qualifies. Otherwise continue primary team's management plan. Neurology Acute metabolic encephalopathy likely due to hypercapnia - on mechanical ventilation Respiratory Acute on chronic hypoxic/hypercarbic respiratory failure likely due to COPD/LAZARA/OHS On mechanical ventilation Severe sepsis with acute organ dysfucntion likely due to pneumonia Pneumonia likely due to Gram +/- bacteria Pulmonary edema - on mechanical ventilation - sputum cultures growing MRSA and pseudomonas, cleared up - repeat sputum cultures growing asia - IV meropenam - bumex 2mg bid - methylprednisolone 40mg bid Cardiovascular Acute on chronic heart failure with preserved ejection fraction Severe right ventricular failure Pulmonary edema likely due to above Hypertensive heart disease with heart failure Bradycardia with AV block ?accidental medication overdose, junctional rhythm, resolved H/o atrial fibrillation - ECG showed bradycardia with prolonged AR interval - Echo shows LVEF 60% with mod degree LV diastolic dysfucntion, mod dilated LA, moderate degree MR, mod dilated and hypokinetic RV associated Dyskinesis with major RV failure - on Bumex - hydralazine 50 mg t.i.d. and isosorbide dinitrate 20 mg t.i.d. - on enoxaparin therapeutic dose - added metolazone 5mg daily and spironolactone 25mg bid Nephrology VIVI on CKD likely prerenal due to VMN - FENa < 1% - BUN and creatinine improving Endocrinology Insulin-dependent type 2 diabetes mellitus with hyperglycemia - on insulin sliding scale - on tube feedings Infectious disease Sepsis likely due to pneumonia/UTI UTI with long-term indwelling Gee catheter, with ESBL E.coli present on admission MRSA nares positive - urine culture shows ESBL E.Coli - respiratory culture pending - blood cultures showed growth of staph epidermidis which could be a contaminant, repeated cultures - on IV Meropenam - mupirocin ointment 12/23- Patient in the morning was put on a CPAP trial which she tolerated well and was extubated and she was following commands and was put on BiPaP. Post extubation her CO2 level kept increasing and patient was more drowsy and somnolent and had to be reintubated. 12/26- patient failed CPAP trial 12/27- patient was put on CPAP but could not meet criteria and was put on ventilator again. we will continue to diurese her. PICC line to be placed today Diet: Glucerna at 40 mL/hour via NG PUD prophylaxis: Protonix DVT prophylaxis: Enoxaparin Left IJV TLC inserted on 12/15 Gee's catheter inserted on 12/16 Goals of care have been discussed with the patient's elder sister and niece. Full code Critical care time spent excluding procedures: 45 minutes Plan discussed with: Patient My Orders Orders - BALWINDER TODD MD Procedure Category Date Status Time Bumetanide Injection PHA 12/28/24 Transmitted (Bumex Injection) 10:45 Acetazolamide PHA 12/28/24 Transmitted Injection (Diamox 10:45 Date of Service: Dec 28, 2024 Billing Provider: BALWINDER TODD MD Common Visit Codes: 70310-[id number] CARE 30-74 MIN BALWINDER TODD MD Dec 28, 2024 10:46
[2024-12-28] MEDS: BUMETANIDE 2.5mg/10ml (0.25 mg/ml) INJ IV ONE (11:42)
[2024-12-28] MEDS: acetaZOLAMIDE SODIUM 500 MG VL IV ONE (11:46)
[2024-12-28 13:25] LABS: Chloride 105 mmol/L (98-107); Sodium 144 mmol/L (136-145)
[2024-12-28 13:26] LABS: Anion Gap 9 (5-15); Carbon Dioxide 30 mmol/L (20-31)
[2024-12-28 13:27] LABS: Calcium 9.4 mg/dL (8.7-10.4)
[2024-12-28 13:32] LABS: BUN/Creatinine Ratio 25.5 (10.0-20.0); Magnesium 2.2 mg/dL (1.6-2.6)
[2024-12-28 13:33] LABS: Blood Urea Nitrogen 25 mg/dL (9-23); Glucose 240 mg/dL (74-106); Potassium 3.4 mmol/L (3.5-5.1)
[2024-12-28] MEDS ORDERED: ACETAMINOPHEN 325 MG TAB PO PRN (14:45)
[2024-12-28] MEDS ORDERED: MORPHINE SULFATE INJ 2 MG/ml SYRG IV PRN (14:45)
[2024-12-28] MEDS: HYDROcodone-ACET 10/325MG TAB PO PRN (14:47)
[2024-12-28] MEDS: POTASSIUM CHL 20MEQ/50ML 50 ML IV ONE (15:30)
[2024-12-28 16:57] LABS: Base Excess -0.3 mmol/L (-2.0-3.0)
--- NOTE | 2024-12-28 19:22 | DVHPN2 ---
Progress Note - Dictate Date Seen: Dec 28, 2024 Medical Necessity Reason Pt with a Central, PICC or Fol: Yes The following are medically ne: Mayo Catheter Reason for mayo catheter: Strict I&O Subjective Patient was seen and evaluated in follow up in the ICU. Patient is intubated and sedated on ventilator. 35% FiO2. Patient is continued on vasopressors for ongoing hemodynamic support. Chest x-ray shows stable appearing diffuse increased prominence of the pulmonary vasculature and opacification of the left hemithorax relative to the right. Stable cardiomegaly. Patient planned for CPAP trial today. vital signs Vital Sign Date Time Temp Pulse Resp B/P (MAP) Pulse Ox O2 Delivery O2 Flow Rate FiO2 12/28/24 12:00 35 12/28/24 12:00 19 96 Mechanical Ventilator+ 12/28/24 11:46 179/78 12/28/24 11:30 63 12/28/24 09:15 98.5 98.5 12/27/24 10:10 35.0 Total Intake and Output 12/27/24 12/27/24 12/28/24 15:00 23:00 07:00 Intake Total 39.74 ml 90 ml 280 ml Output Total 1350 ml 1000 ml Balance 39.74 ml -1260 ml -720 ml medications Current Medications Medications Dose Ordered Sig/Julito Route Start Time Stop Time Status Last Admin Dose Admin Propofol 100 ml @ 4.08 mls/hr Q24H IV 12/15/24 05:15 12/27/24 06:43 24.48 MLS/HR Diagnostic Test (Pha) 1 strip Q6HR 12/15/24 12:00 12/28/24 12:05 1 STRIP Insulin Human Regular Q6HR SC 12/15/24 12:00 12/28/24 12:04 4 UNITS Dextrose 50 ml UD PRN IV 12/15/24 07:00 Acetaminophen 650 mg Q6HP PRN GT 12/15/24 13:00 12/15/24 13:21 650 MG Fentanyl Citrate 250 ml @ 2.5 mls/hr Q24H IV 12/16/24 11:15 12/27/24 23:09 10 MLS/HR Enteral Nutritional Formula 1,000 ml 40ML/HR GT 12/16/24 12:30 12/21/24 18:27 1,000 ML Enoxaparin Sodium 150 mg Q12HR SC 12/16/24 22:00 12/28/24 09:03 150 MG Ipratropium [place] 0.5 mg Q6HR NEB 12/17/24 00:00 12/28/24 05:51 0.5 MG Albuterol 2.5 mg Q6HR NEB 12/17/24 00:00 12/28/24 05:51 2.5 MG Pantoprazole Sodium 40 mg DAILY IV 12/17/24 10:00 12/28/24 09:02 40 MG Norepinephrine Bitartrate 250 ml @ 3.75 mls/hr Q24H IV 12/18/24 19:30 12/20/24 15:47 3.75 MLS/HR Meropenem 50 ml @ 17 mls/hr Q8HR IV 12/24/24 00:30 12/28/24 06:03 17 MLS/HR Methylprednisolone Sodium Succinate 40 mg BID IV 12/24/24 22:00 12/28/24 09:04 40 MG Purified Water 100 ml Q6HR GT 12/24/24 18:00 12/28/24 06:11 100 ML Lactulose 30 ml Q8HR GT 12/25/24 14:00 12/26/24 14:19 30 ML Metoclopramide HCl 5 mg Q12HR IV 12/25/24 10:00 12/28/24 09:03 5 MG Bumetanide 2 mg BIDD IV 12/25/24 18:46 12/28/24 06:07 2 MG Hydralazine HCl 50 mg TID PO 12/27/24 14:00 12/28/24 06:10 50 MG Isosorbide Dinitrate 20 mg TID PO 12/27/24 22:00 12/28/24 06:09 20 MG Metolazone 5 mg DAILY PO 12/28/24 06:00 12/28/24 09:03 5 MG Spironolactone 25 mg BIDD PO 12/27/24 18:00 12/28/24 06:09 25 MG Sodium Chloride 10 ml QSHIFT@10,22 IV 12/27/24 22:00 12/28/24 09:04 10 ML objective GENERAL: Intubated on ventilator. Morbidly obese . EYES: PERRL, EOMI. Anicteric. HENT: Moist mucous membranes. LUNGS: Decreased all breath sounds. CARDIOVASCULAR: Regular rate and rhythm. ABDOMEN: Soft, nontender and nondistended. EXTREMITIES: No edema. SKIN: Warm, dry. laboratory and microbiology Laboratory Tests 12/28/24 03:00 Test 12/28/24 12:44 Range/Units Serum Glucose Pending Problem List Accidental medication overdose. Acute encephalopathy. Acute respiratory failure. Respiratory acidosis. Right pleural effusion. Leukocytosis Chest pain. Bradycardia. CHF. CAD. Acute renal failure Hyperkalemia. UTI. DM type 2. Hypertension. Morbid obesity. History of CVA. Assessment/Plan Continued all current supportive medical care. Diuretics with Bumex. DVT and GI prophylactics. IV Hydralazine for SBP >150. IV antibiotics as ordered. Vasopressors for hemodynamic support. Additional plan as per the hospital course. Critical care time of 45 minutes provided to include time spent evaluation of patient at bedside, when appropriate patient/family education for diagnosis, treatment plan, review of pertinent medical information and discussion of care with specialty providers and PCP. Mechanical ventilator parameters, treatment and adjustments have personally been reviewed by me and treatment plan by chairman & chief executive officer has also been reviewed. Dietary Evaluation Review Comments: 1. Pt is on fat energy support through Propofol of 860 kca, the TF needs to be a low fat, high proteiin formula. Suggest using Vital High Protein @45ml/hr, in 24 hr, pt will receive 1080 kca, 94 g protein, This formula will satisfy pt's protein neeeds at 79% and energy needs at 79% including the 860 kcal provided by Propofol running at 32.6ml/hr. Expected Outcomes/Goals: 1. Reassess protein and energy needs when pt is off vent, based on her true weight without fluid retention and possibably an improved kideny function, 2. Advance to [facility]-diet with updated protein and energy needs, when medically feasible providing that she passes a SYSTEMS SPEC eval. Plan discussed with: FRANTZ Leyva MD Dec 28, 2024 13:03
[2024-12-28 22:37] LABS: Chloride 105 mmol/L (98-107); Potassium 3.5 mmol/L (3.5-5.1)
[2024-12-28 22:38] LABS: Anion Gap 7 (5-15); Calcium 9.8 mg/dL (8.7-10.4)
[2024-12-28 22:39] LABS: Carbon Dioxide 33 mmol/L (20-31); Sodium 145 mmol/L (136-145)
[2024-12-28 22:43] LABS: BUN/Creatinine Ratio 25.7 (10.0-20.0)
[2024-12-28 22:44] LABS: Magnesium 2.2 mg/dL (1.6-2.6)
[2024-12-28 22:47] LABS: Blood Urea Nitrogen 26 mg/dL (9-23); Glucose 138 mg/dL (74-106)
[2024-12-28] MEDS: SPIRONOLACTONE 25 MG TAB PO SCH (22:49)
[2024-12-29] VITALS (101 sets, daily range): BP systolic 113–183; BP diastolic 47–88; PULSE 75–96; RESP 11–22; TEMP 98–99.6; O2SAT 82–100
--- NOTE | 2024-12-29 09:32 | DVHPN2 ---
Progress Note - Dictate Date Seen: Dec 29, 2024 Medical Necessity Reason Pt with a Central, PICC or Fol: Yes The following are medically ne: Mayo Catheter Reason for mayo catheter: Strict I&O vital signs Vital Sign Date Time Temp Pulse Resp B/P (MAP) Pulse Ox O2 Delivery O2 Flow Rate FiO2 12/29/24 07:30 89 18 139/65 (89) 12/29/24 07:15 94 12/29/24 06:23 Nasal Cannula* 5 40 12/29/24 04:00 98.8 98.8 Total Intake and Output 12/28/24 12/28/24 12/29/24 15:00 23:00 07:00 Intake Total 77.827 ml 100 ml 200 ml Output Total 2100 ml 1750 ml Balance 77.827 ml -2000 ml -1550 ml medications Current Medications Medications Dose Ordered Sig/Julito Route Start Time Stop Time Status Last Admin Dose Admin Diagnostic Test (Pha) 1 strip Q6HR 12/15/24 12:00 12/29/24 06:11 1 STRIP Insulin Human Regular Q6HR SC 12/15/24 12:00 12/29/24 06:13 3 UNITS Dextrose 50 ml UD PRN IV 12/15/24 07:00 Enteral Nutritional Formula 1,000 ml 40ML/HR GT 12/16/24 12:30 12/21/24 18:27 1,000 ML Enoxaparin Sodium 150 mg Q12HR SC 12/16/24 22:00 12/28/24 22:23 150 MG Ipratropium [place] 0.5 mg Q6HR NEB 12/17/24 00:00 12/29/24 06:23 0.5 MG Albuterol 2.5 mg Q6HR NEB 12/17/24 00:00 12/29/24 06:23 2.5 MG Pantoprazole Sodium 40 mg DAILY IV 12/17/24 10:00 12/28/24 09:02 40 MG Meropenem 50 ml @ 17 mls/hr Q8HR IV 12/24/24 00:30 12/29/24 06:11 17 MLS/HR Methylprednisolone Sodium Succinate 40 mg BID IV 12/24/24 22:00 12/28/24 22:22 40 MG Purified Water 100 ml Q6HR GT 12/24/24 18:00 12/29/24 06:12 100 ML Lactulose 30 ml Q8HR GT 12/25/24 14:00 12/29/24 06:10 30 ML Metoclopramide HCl 5 mg Q12HR IV 12/25/24 10:00 12/28/24 22:21 5 MG Bumetanide 2 mg BIDD IV 12/25/24 18:46 12/29/24 06:12 2 MG Hydralazine HCl 50 mg TID PO 12/27/24 14:00 12/29/24 06:11 50 MG Isosorbide Dinitrate 20 mg TID PO 12/27/24 22:00 12/29/24 06:11 20 MG Metolazone 5 mg DAILY PO 12/28/24 06:00 12/28/24 09:03 5 MG Sodium Chloride 10 ml QSHIFT@10,22 IV 12/27/24 22:00 12/28/24 22:21 10 ML Acetaminophen 650 mg Q6HP PRN PO 12/28/24 14:45 Acetaminophen/ Hydrocodone Bitart 1 tab Q6HP PRN PO 12/28/24 14:45 12/28/24 22:53 1 TAB Morphine Sulfate 2 mg Q4HR PRN IV 12/28/24 14:45 Spironolactone 25 mg Q12H PO 12/28/24 22:45 12/28/24 22:49 25 MG Ondansetron HCl 4 mg Q8HPRN PRN IV 12/29/24 08:30 laboratory and microbiology Laboratory Tests 12/28/24 22:00 12/28/24 03:00 Test 12/28/24 22:00 Range/Units Serum Glucose 138 H 74-106 mg/dL Assessment/Plan barrel header rounds 59 yo AAF obesity CHF re-intubated for respiratory failure atelectases events pt passed weaning trial yesterday extubated observed ovenight vomited NG placed started on zofran labs and CXR reviewed persistent opacities pulm edema pt completed abx following commands management supportive care KUB if still nauseated swallow eval cont steroids diurese monitor BUN/Cr replace lytes gi and dvt proph crit care time 3 5min Dietary Evaluation Review Comments: 1. Pt is on fat energy support through Propofol of 860 kca, the TF needs to be a low fat, high proteiin formula. Suggest using Vital High Protein @45ml/hr, in 24 hr, pt will receive 1080 kca, 94 g protein, This formula will satisfy pt's protein neeeds at 79% and energy needs at 79% including the 860 kcal provided by Propofol running at 32.6ml/hr. Expected Outcomes/Goals: 1. Reassess protein and energy needs when pt is off vent, based on her true weight without fluid retention and possibably an improved kideny function, 2. Advance to [facility]-diet with updated protein and energy needs, when medically feasible providing that she passes a SEPARATING MACHINE OPERATOR eval. Plan discussed with: Other (rn) IAN HASTINGS MD Dec 29, 2024 09:32
--- NOTE | 2024-12-29 09:33 | DVHPN2 ---
Subjective Update 12/28 12/28- patient feels extubation on Monday. She has been getting diuresis since then. She was on Bumex IV b.i.d., yesterday added metolazone. She has been getting extra p.r.n. diuresis. Today chest x-ray still appearing hazy opacities, urine clear, creatinine improving. We will give another extra of push off Bumex with Diamox. BNP stable, ABG stable CPAP trial today. On visit patient is on spontaneous. She was following commands. Agreeing that she wants to be extubated. We will wait for RT parameters to see if she qualifies. Otherwise continue primary team's management plan. extuabted today 12/28 12/29- will give 1x solumedrol, poor voice since extubation. npo, NG maintained as patient had 1 episode of emesis last night. She was having poor sputum. Patient was on meropenem, I will add doxycycline. Patient extubated and appears to be a talker but has poor voice due to likely vocal cord irritation from ETT. Apparently also failed bedside swallow last night. We will re-attempt swallow test, okay to give ice chips until official ULTRASONIC TESTER speech pathology swallow eval. Patient continues to do well today we will be okay to advance to clear liquid diet. We will monitor 1 more day in ICU currently would be okay to deescalate to tele if bed needed. Otherwise continue primary team's care plan. No labs today, we will need to get labs. We will hold off giving extra Bumex with Diamox today. Urine straw-colored, appropriate amount in Gee bedside. Patient is very obese hard to hear lung sounds, no lower extremity edema. We will need CXR this a.m. as well. Reviewed: H&P Changes from previous H/P or p: No Changes General: Per HPI Objective Vitals Vital Signs Date Time Temp Pulse Resp B/P (MAP) Pulse Ox O2 Delivery O2 Flow Rate FiO2 12/29/24 07:30 89 18 139/65 (89) 12/29/24 07:15 94 12/29/24 06:23 Nasal Cannula* 5 40 12/29/24 04:00 98.8 98.8 Intake/Output Intake and Output 12/29/24 07:00 Intake Total 377.827 ml Output Total 3850 ml Balance -3472.173 ml Intake Oral 250 ml IV Total 127.827 ml Output Urine Total 3850 ml Exam Constitutional: Patient was morbidly obese, awake, alert, poor voice unable to assess oritenation. Gen - no pallor, no icterus, no cyanosis, no clubbing, no LAD, trace edema. Skin - Patients skin is warm and dry. HEENT - normocephalic, atraumatic, moist mucous membranes. Neck - full ROM, no LAD, JVD could not be assessed. Pulmonary - B/L diminished breath sounds with inspiratory crackles, no wheezing cardiovascular - variable S1,S2 heard, no added sounds, no murmurs heard. GI - obese, soft abdomen, large area of dark discoloration below the umbilicus Neurological - no FND apparent. CN 2-12 intact grossly Medications Current Medications Medications Dose Ordered Sig/Julito Route Start Time Stop Time Status Last Admin Dose Admin Diagnostic Test (Pha) 1 strip Q6HR 12/15/24 12:00 12/29/24 06:11 1 STRIP Insulin Human Regular Q6HR SC 12/15/24 12:00 12/29/24 06:13 3 UNITS Dextrose 50 ml UD PRN IV 12/15/24 07:00 Enteral Nutritional Formula 1,000 ml 40ML/HR GT 12/16/24 12:30 12/21/24 18:27 1,000 ML Enoxaparin Sodium 150 mg Q12HR SC 12/16/24 22:00 12/28/24 22:23 150 MG Ipratropium [place] 0.5 mg Q6HR NEB 12/17/24 00:00 12/29/24 06:23 0.5 MG Albuterol 2.5 mg Q6HR NEB 12/17/24 00:00 12/29/24 06:23 2.5 MG Pantoprazole Sodium 40 mg DAILY IV 12/17/24 10:00 12/28/24 09:02 40 MG Meropenem 50 ml @ 17 mls/hr Q8HR IV 12/24/24 00:30 12/29/24 06:11 17 MLS/HR Methylprednisolone Sodium Succinate 40 mg BID IV 12/24/24 22:00 12/28/24 22:22 40 MG Purified Water 100 ml Q6HR GT 12/24/24 18:00 12/29/24 06:12 100 ML Lactulose 30 ml Q8HR GT 12/25/24 14:00 12/29/24 06:10 30 ML Metoclopramide HCl 5 mg Q12HR IV 12/25/24 10:00 12/28/24 22:21 5 MG Bumetanide 2 mg BIDD IV 12/25/24 18:46 12/29/24 06:12 2 MG Hydralazine HCl 50 mg TID PO 12/27/24 14:00 12/29/24 06:11 50 MG Isosorbide Dinitrate 20 mg TID PO 12/27/24 22:00 12/29/24 06:11 20 MG Metolazone 5 mg DAILY PO 12/28/24 06:00 12/28/24 09:03 5 MG Sodium Chloride 10 ml QSHIFT@10,22 IV 12/27/24 22:00 12/28/24 22:21 10 ML Acetaminophen 650 mg Q6HP PRN PO 12/28/24 14:45 Acetaminophen/ Hydrocodone Bitart 1 tab Q6HP PRN PO 12/28/24 14:45 12/28/24 22:53 1 TAB Morphine Sulfate 2 mg Q4HR PRN IV 12/28/24 14:45 Spironolactone 25 mg Q12H PO 12/28/24 22:45 12/28/24 22:49 25 MG Ondansetron HCl 4 mg Q8HPRN PRN IV 12/29/24 08:30 Laboratory Results Laboratory Tests 12/28/24 03:00 12/28/24 22:00 Chemistry Test 12/28/24 12:44 12/28/24 22:00 Calcium Level 9.4 mg/dL (8.7-10.4) 9.8 mg/dL (8.7-10.4) Magnesium Level 2.2 mg/dL (1.6-2.6) 2.2 mg/dL (1.6-2.6) Urinalysis Test 12/14/24 23:16 12/15/24 13:45 Urine WBC Clumps Present /hpf (None Seen) Urine Calcium Oxalate Crystals Few (None Seen) Urine Hyaline Casts Many /lpf (0 - 2) Urine Mucus Few (None Seen) Urine Color Light-yellow (Yellow) Urine Clarity Turbid (Clear) H Urine pH 6.5 (5.0-9.0) Urine Specific [place] 1.011 (1.001-1.035) Urine Protein Trace (Negative) H Urine Ketones Negative (Negative) Urine Blood Trace /uL (Negative) H Urine Nitrite Negative (Negative) Urine Bilirubin Negative (Negative) Urine Urobilinogen Normal mg/dL (Negative) Urine Leukocyte Esterase 3+ /uL (Negative) Urine RBC 4 /hpf (0 - 4) Urine Microscopic WBC 39 /HPF (0-5) H Urine Squamous Epithelial Cells Few /hpf (<5) Urine Bacteria Many /hpf (None Seen) H Urine Creatinine 51.30 mg/dL (30.0-125.0) Urine Protein/Creatinine Ratio 0.67 Urine Sodium 16 mmol/L (40-220) L Urine Glucose Normal mg/dL (Normal) Urine Total Protein 34.5 mg/dL (1-14) H Blood Gas Results Test 12/28/24 12:13 Arterial Blood pH 7.352 (7.350-7.450) FiO2 % 35.0 Microbiology Microbiology Date/Time Source Procedure Growth Status 12/23/24 17:20 Sputum Gram Stain - Final Complete 12/23/24 17:20 Respiratory Culture - Final Presumptive [place] albicans Complete 12/16/24 13:20 Blood Blood Culture - Final NO GROWTH AFTER 5 DAYS OF INCUBATION. Complete 12/15/24 13:45 Urine - Gee Port Urine Culture - Final Escherichia coli - ESBL Complete 12/15/24 11:44 Nose MRSA Screen - Final Methicillin Resistant S.aureus Complete Labs and/or images reviewed: Labs reviewed by me, Image(s) reviewed by me Assessment/Plan Assessment/Plan 12/29- will give 1x solumedrol, poor voice since extubation. npo, NG maintained as patient had 1 episode of emesis last night. She was having poor sputum. Patient was on meropenem, I will add doxycycline. Patient extubated and appears to be a talker but has poor voice due to likely vocal cord irritation from ETT. Apparently also failed bedside swallow last night. We will re-attempt swallow test, okay to give ice chips until official ULTRASONIC TESTER speech pathology swallow eval. Patient continues to do well today we will be okay to advance to clear liquid diet. We will monitor 1 more day in ICU currently would be okay to deescalate to tele if bed needed. Otherwise continue primary team's care plan. No labs today, we will need to get labs. We will hold off giving extra Bumex with Diamox today. Urine straw-colored, appropriate amount in Gee bedside. Patient is very obese hard to hear lung sounds, no lower extremity edema. We will need CXR this a.m. as well. Neurology Acute metabolic encephalopathy likely due to hypercapnia - on mechanical ventilation Respiratory Acute on chronic hypoxic/hypercarbic respiratory failure likely due to COPD/LAZARA/OHS On mechanical ventilation Severe sepsis with acute organ dysfucntion likely due to pneumonia Pneumonia likely due to Gram +/- bacteria Pulmonary edema - on mechanical ventilation - sputum cultures growing MRSA and pseudomonas, cleared up - repeat sputum cultures growing asia - IV meropenam - bumex 2mg bid - methylprednisolone 40mg bid Cardiovascular Acute on chronic heart failure with preserved ejection fraction Severe right ventricular failure Pulmonary edema likely due to above Hypertensive heart disease with heart failure Bradycardia with AV block ?accidental medication overdose, junctional rhythm, resolved H/o atrial fibrillation - ECG showed bradycardia with prolonged OR interval - Echo shows LVEF 60% with mod degree LV diastolic dysfucntion, mod dilated LA, moderate degree MR, mod dilated and hypokinetic RV associated Dyskinesis with major RV failure - on Bumex - hydralazine 50 mg t.i.d. and isosorbide dinitrate 20 mg t.i.d. - on enoxaparin therapeutic dose - added metolazone 5mg daily and spironolactone 25mg bid Nephrology VIVI on CKD likely prerenal due to VMN - FENa < 1% - BUN and creatinine improving Endocrinology Insulin-dependent type 2 diabetes mellitus with hyperglycemia - on insulin sliding scale - on tube feedings Infectious disease Sepsis likely due to pneumonia/UTI UTI with long-term indwelling Gee catheter, with ESBL E.coli present on admission MRSA nares positive - urine culture shows ESBL E.Coli - respiratory culture pending - blood cultures showed growth of staph epidermidis which could be a contaminant, repeated cultures - on IV Meropenam - mupirocin ointment 12/23- Patient in the morning was put on a CPAP trial which she tolerated well and was extubated and she was following commands and was put on BiPaP. Post extubation her CO2 level kept increasing and patient was more drowsy and somnolent and had to be reintubated. 12/26- patient failed CPAP trial 12/27- patient was put on CPAP but could not meet criteria and was put on ventilator again. we will continue to diurese her. PICC line to be placed today Diet: Glucerna at 40 mL/hour via NG PUD prophylaxis: Protonix DVT prophylaxis: Enoxaparin Left IJV TLC inserted on 12/15 Gee's catheter inserted on 12/16 Goals of care have been discussed with the patient's elder sister and niece. Full code Critical care time spent excluding procedures: 45 minutes Plan discussed with: Patient My Orders Orders - BALWINDER TODD MD Procedure Category Date Status Time Communication Order ORDERS 12/28/24 Transmitted 12:19 Communication Order ORDERS 12/28/24 Transmitted 13:01 Acetaminophen Tablet PHA 12/28/24 In Process (Tylenol Tablet) 14:45 Hydrocodone-Acet PHA 12/28/24 In Process 10/325mg Tab ([place] 14:45 Morphine Sulfate PHA 12/28/24 In Process Injection 14:45 Pt Request For Service PT 12/29/24 Logged 12:00 * Swallow Request ST 12/29/24 Transmitted 12:00 Date of Service: Dec 29, 2024 Billing Provider: BALWINDER TODD MD Common Visit Codes: [id number] CARE 30-74 MIN BALWINDER TODD MD Dec 29, 2024 09:33
[2024-12-29 11:10] LABS: Basophils # (auto) 0.1 10 ^3/uL (0-0.2); Basophils % (auto) 0.5 % (0.0-2.0); Eosinophils # (auto) 0 10 ^3/uL (0-0.8); Eosinophils % (auto) 0.3 % (0.0-7.0); Hematocrit 35.2 % (36.0-46.0); Hemoglobin 10.9 g/dL (12.2-16.2); Lymphocytes # (auto) 1.2 10 ^3/uL (0.4-5.4); Lymphocytes % (auto) 11.1 % (10.0-50.0); Mean Corpuscular Hemoglobin 24.3 pg (28.0-32.0); Mean Corpuscular Hgb Conc. 30.9 g/dL (32.0-36.0); Mean Corpuscular Volume 78.6 fL (80.0-100.0); Monocytes # (auto) 0.8 10 ^3/uL (0-1.3); Monocytes % (auto) 7.2 % (0.0-12.0); Neutrophils # (auto) 8.8 10 ^3/uL (1.6-8.6); Neutrophils % (auto) 80.9 % (37.0-80.0); Nucleated Red Blood Cells % 0.1 %; Platelet Count (auto) 392 10^3/uL (140-450); Red Blood Cells 4.48 10^6/uL (4.0-5.20); Red Cell Distribution Width 19.1 % (11.8-14.3); White Blood Cell 10.9 10^3/uL (4.4-10.8)
--- NOTE | 2024-12-29 11:16 | DVH ---
INDICATION: assess volume in lungs TECHNIQUE: Single frontal view of the chest was obtained COMPARISON: XY CHEST XRAY 1 VIEW on DOS: 12/28/24, XY CHEST XRAY 1 VIEW on DOS: 12/27/24, XY CHEST XRAY 1 VIEW on DOS: 12/26/24, XY CHEST XRAY 1 VIEW on DOS: 12/25/24, XY CHEST PORTABLE on DOS: 12/24/24, XY CHEST XRAY 1 VIEW on DOS: 12/28/24 FINDINGS: Lines and Tubes: Nasogastric tube tip in the stomach. Endotracheal tube not clearly visualized. Left IJ central venous catheter removed. Lungs: Persistent diffuse increased prominence of the pulmonary vasculature with increased opacity wi thin the left omari thorax, relative to the right. Small bilateral pleural effusions are not excluded. No pneumothorax. Cardiomediastinal contours: Stable cardiomegaly. Bones: Unremarkable IMPRESSION: 1. Stable appearing diffuse increased prominence of the pulmonary vasculature and opacification of th e left hemithorax relative to the right. 2. Stable cardiomegaly.
[2024-12-29 11:18] LABS: Alanine Aminotransferase 24 U/L (7-40); Alkaline Phosphatase 63 U/L (46-116); Anion Gap 10 (5-15); Aspartate Aminotransferase 20 U/L (13-40); BUN/Creatinine Ratio 25.7 (10.0-20.0); Calcium 10.1 mg/dL (8.7-10.4); Chloride 105 mmol/L (98-107); Magnesium 2.1 mg/dL (1.6-2.6); Total Protein 6.8 g/dL (5.7-8.2)
[2024-12-29 11:19] LABS: Bilirubin, Total 0.3 mg/dL (0.2-1.0)
[2024-12-29 11:21] LABS: Potassium 3.4 mmol/L (3.5-5.1); Sodium 147 mmol/L (136-145)
[2024-12-29 11:22] LABS: Blood Urea Nitrogen 28 mg/dL (9-23); Carbon Dioxide 32 mmol/L (20-31); Glucose 137 mg/dL (74-106)
[2024-12-29] MEDS: methylPREDNISolone SOD SUCC 40 MG/ML VL IV ONE (11:36)
[2024-12-29] MEDS: DOXYCYCLINE 100MG/100ML 100 ML IV SCH (11:37)
[2024-12-29] MEDS: POTASSIUM CHL 20MEQ/50ML 50 ML IV ONE (14:47)
[2024-12-29 22:35] LABS: Chloride 102 mmol/L (98-107); Potassium 3.6 mmol/L (3.5-5.1); Sodium 144 mmol/L (136-145)
[2024-12-29 22:36] LABS: Anion Gap 7 (5-15); Calcium 10.3 mg/dL (8.7-10.4)
[2024-12-29 22:41] LABS: BUN/Creatinine Ratio 31.3 (10.0-20.0)
[2024-12-29 22:43] LABS: Blood Urea Nitrogen 36 mg/dL (9-23); Carbon Dioxide 35 mmol/L (20-31); Glucose 210 mg/dL (74-106)
--- NOTE | 2024-12-29 23:28 | DVHPN2 ---
Progress Note - Dictate Date Seen: Dec 29, 2024 Medical Necessity Reason Pt with a Central, PICC or Fol: Yes The following are medically ne: Mayo Catheter Reason for mayo catheter: Strict I&O Subjective Patient was seen and evaluated in follow up in the ICU. Patient was successfully extubated yesterday afternoon. She is on 5 LPM NC. Patient is complaining f a hoarse voice. Patient reports 1 episode of vomiting. WBC 10.9, NA 147, K 3.4, CO2 32, BUN 28, SALVAGE WINDER AND INSPECTOR 1.09. Chest x-ray showa stable appearing diffuse increased prominence of the pulmonary vasculature and opacification of the left hemithorax relative to the right. Stable cardiomegaly. vital signs Vital Sign Date Time Temp Pulse Resp B/P (MAP) Pulse Ox O2 Delivery O2 Flow Rate FiO2 12/29/24 15:31 90 12 114/62 (79) 93 12/29/24 14:00 Nasal Cannula* 5 40 12/29/24 12:00 99.6 99.6 Total Intake and Output 12/28/24 12/28/24 12/29/24 15:00 23:00 07:00 Intake Total 77.827 ml 100 ml 200 ml Output Total 2100 ml 1750 ml Balance 77.827 ml -2000 ml -1550 ml medications Current Medications Medications Dose Ordered Sig/Julito Route Start Time Stop Time Status Last Admin Dose Admin Diagnostic Test (Pha) 1 strip Q6HR 12/15/24 12:00 12/29/24 11:36 1 STRIP Insulin Human Regular Q6HR SC 12/15/24 12:00 12/29/24 11:50 2 UNITS Dextrose 50 ml UD PRN IV 12/15/24 07:00 Enteral Nutritional Formula 1,000 ml 40ML/HR GT 12/16/24 12:30 12/21/24 18:27 1,000 ML Enoxaparin Sodium 150 mg Q12HR SC 12/16/24 22:00 12/29/24 09:48 150 MG Ipratropium [place] 0.5 mg Q6HR NEB 12/17/24 00:00 12/29/24 11:35 0.5 MG Albuterol 2.5 mg Q6HR NEB 12/17/24 00:00 12/29/24 11:35 2.5 MG Pantoprazole Sodium 40 mg DAILY IV 12/17/24 10:00 12/29/24 09:47 40 MG Meropenem 50 ml @ 17 mls/hr Q8HR IV 12/24/24 00:30 12/29/24 14:45 17 MLS/HR Methylprednisolone Sodium Succinate 40 mg BID IV 12/24/24 22:00 12/29/24 09:47 40 MG Purified Water 100 ml Q6HR GT 12/24/24 18:00 12/29/24 11:37 100 ML Lactulose 30 ml Q8HR GT 12/25/24 14:00 12/29/24 06:10 30 ML Metoclopramide HCl 5 mg Q12HR IV 12/25/24 10:00 12/29/24 09:47 5 MG Bumetanide 2 mg BIDD IV 12/25/24 18:46 12/29/24 06:12 2 MG Hydralazine HCl 50 mg TID PO 12/27/24 14:00 12/29/24 14:46 50 MG Isosorbide Dinitrate 20 mg TID PO 12/27/24 22:00 12/29/24 14:46 20 MG Metolazone 5 mg DAILY PO 12/28/24 06:00 12/29/24 09:48 5 MG Sodium Chloride 10 ml QSHIFT@10,22 IV 12/27/24 22:00 12/29/24 09:47 10 ML Acetaminophen 650 mg Q6HP PRN PO 12/28/24 14:45 Acetaminophen/ Hydrocodone Bitart 1 tab Q6HP PRN PO 12/28/24 14:45 12/28/24 22:53 1 TAB Morphine Sulfate 2 mg Q4HR PRN IV 12/28/24 14:45 Spironolactone 25 mg Q12H PO 12/28/24 22:45 12/29/24 09:47 25 MG Ondansetron HCl 4 mg Q8HPRN PRN IV 12/29/24 08:30 Doxycycline Hyclate 100 ml @ 50 mls/hr Q12H IV 12/29/24 09:30 12/29/24 11:37 50 MLS/HR objective GENERAL: Alert and oriented x 3. No acute distress. Morbidly obese. EYES: PERRL, EOMI. Anicteric. HENT: Moist mucous membranes. LUNGS: Decreased all breath sounds. CARDIOVASCULAR: Regular rate and rhythm. ABDOMEN: Soft, nontender and nondistended. EXTREMITIES: No edema. SKIN: Warm, dry. laboratory and microbiology Laboratory Tests 12/29/24 10:13 Test 12/29/24 10:13 Range/Units Serum Glucose 137 H 74-106 mg/dL Problem List Accidental medication overdose. Acute encephalopathy. Acute respiratory failure. Respiratory acidosis. Right pleural effusion. Leukocytosis Chest pain. Bradycardia. CHF. CAD. Acute renal failure Hyperkalemia. UTI. DM type 2. Hypertension. Morbid obesity. History of CVA. Assessment/Plan Continued all current supportive medical care. Morphine and [place] for pain. Diuretics with Bumex. DVT and GI prophylactics. IV Hydralazine for SBP >150. IV antibiotics as ordered. Vasopressors for hemodynamic support. Additional plan as per the hospital course. Critical care time of 45 minutes provided to include time spent evaluation of patient at bedside, when appropriate patient/family education for diagnosis, treatment plan, review of pertinent medical information and discussion of care with specialty providers and PCP. Dietary Evaluation Review Comments: 1. Pt is on fat energy support through Propofol of 860 kca, the TF needs to be a low fat, high proteiin formula. Suggest using Vital High Protein @45ml/hr, in 24 hr, pt will receive 1080 kca, 94 g protein, This formula will satisfy pt's protein neeeds at 79% and energy needs at 79% including the 860 kcal provided by Propofol running at 32.6ml/hr. Expected Outcomes/Goals: 1. Reassess protein and energy needs when pt is off vent, based on her true weight without fluid retention and possibably an improved kideny function, 2. Advance to CCHO-diet with updated protein and energy needs, when medically feasible providing that she passes a SCANNING CLERK eval. Plan discussed with: FRANTZ Leyva MD Dec 29, 2024 15:46
[2024-12-30] VITALS (103 sets, daily range): BP systolic 95–189; BP diastolic 51–92; PULSE 72–91; RESP 9–21; TEMP 98.1–99.2; O2SAT 91–100
[2024-12-30] MEDS: cloNIDine HCL 0.1 MG TAB PO ONE (01:11)
--- NOTE | 2024-12-30 03:44 | DVH ---
CHEST RADIOGRAPH Indication: EXTUBATED 12/28/24 Technique: Single frontal view of the chest was obtained COMPARISON: XY CHEST PORTABLE on DOS: 12/29/24, XY CHEST XRAY 1 VIEW on DOS: 12/28/24, XY CHEST XRAY 1 VIEW on DOS: 12/27/24, XY CHEST XRAY 1 VIEW on DOS: 12/26/24, XY CHEST XRAY 1 VIEW on DOS: 12/25/24 FINDINGS: Lines and Tubes: Enteric catheter unchanged. Lungs: The patient is rotated to the right. Stable appearing moderate increased prominence of the pul monary vasculature. No definite consolidation. The bibasilar regions are poorly evaluated secondary t o decreased lung volumes. Pleura: No definite effusion. No pneumothorax. Cardiomediastinal contours: Unremarkable Bones: Unremarkable IMPRESSION: 1. Diminished lung volumes with otherwise stable appearing moderate increased prominence of the pulmo nary vasculature. 2. Enteric catheter.
[2024-12-30 03:54] LABS: Eosinophils # (auto) 0 10 ^3/uL (0-0.8); Monocytes # (auto) 0.3 10 ^3/uL (0-1.3)
[2024-12-30 03:58] LABS: Basophils # (auto) 0.1 10 ^3/uL (0-0.2); Basophils % (auto) 1.2 % (0.0-2.0); Eosinophils % (auto) 0.2 % (0.0-7.0); Hematocrit 35.7 % (36.0-46.0); Hemoglobin 11.1 g/dL (12.2-16.2); Lymphocytes # (auto) 0.6 10 ^3/uL (0.4-5.4); Lymphocytes % (auto) 5.2 % (10.0-50.0); Mean Corpuscular Hemoglobin 24.2 pg (28.0-32.0); Mean Corpuscular Hgb Conc. 31.1 g/dL (32.0-36.0); Mean Corpuscular Volume 77.8 fL (80.0-100.0); Monocytes % (auto) 2.7 % (0.0-12.0); Neutrophils # (auto) 9.8 10 ^3/uL (1.6-8.6); Neutrophils % (auto) 90.7 % (37.0-80.0); Platelet Count (auto) 365 10^3/uL (140-450); Red Blood Cells 4.59 10^6/uL (4.0-5.20); Red Cell Distribution Width 18.5 % (11.8-14.3); White Blood Cell 10.9 10^3/uL (4.4-10.8)
[2024-12-30 04:14] LABS: Alanine Aminotransferase 23 U/L (7-40); Alkaline Phosphatase 59 U/L (46-116); Anion Gap 8 (5-15); BUN/Creatinine Ratio 31.3 (10.0-20.0); Chloride 101 mmol/L (98-107); Potassium 3.8 mmol/L (3.5-5.1); Sodium 143 mmol/L (136-145)
[2024-12-30 04:15] LABS: Total Protein 6.9 g/dL (5.7-8.2)
[2024-12-30 04:16] LABS: Albumin 4.1 g/dL (3.2-4.8); Aspartate Aminotransferase 15 U/L (13-40)
[2024-12-30 04:22] LABS: Bilirubin, Total 0.3 mg/dL (0.2-1.0); Blood Urea Nitrogen 36 mg/dL (9-23); Calcium 10.6 mg/dL (8.7-10.4); Carbon Dioxide 34 mmol/L (20-31); Glucose 206 mg/dL (74-106)
[2024-12-30] MEDS: POTASSIUM CHL 20MEQ/50ML 0 ML IV ONE (04:59)
--- NOTE | 2024-12-30 08:35 | DVHPNRES ---
Progress Note Date Seen: Dec 30, 2024 Resident Creating Document: JACKY GARCIA RESIDENT Medical Necessity Reason Pt with a Central, PICC or Fol: Yes The following are medically ne: Mayo Catheter Reason for mayo catheter: Strict I&O Subjective Review of Systems Patient is a 59-year-old female with a past medical history of COPD, insulin dependent type 2 diabetes mellitus, congestive heart failure, coronary artery disease was brought to the hospital via EMS with altered mental status and bradycardia. As per patient's niece who is her take her multiple spindle router operator, when she went to her room to give in the afternoon, she found with the patient to be confused and she checked her vitals reported low blood pressure and heart rate in 30s which she suspected might be because she took her blood pressure medications twice, following which she called EMS and the patient was brought to the hospital. She reports patient has been in and out of the hospital since the past 6 months for complains of shortness of breath. The last time she was hospitalized was in [facility] about 2.5-3 months ago following which she was sent to rehab facility and [facility] from where she got discharged about a week ago to home. Patient has been bed-bound since the last 8 years. At home patient has an oxygen concentrator and uses oxygen at 8-10 L per minute. Patient came in with altered mental status and ABG showed respiratory acidosis following which she was intubated and put on mechanical ventilation. Past medical history: COPD with 8-10 L oxygen per minute at home, insulin dependent type 2 diabetes mellitus, congestive heart failure, coronary artery disease, atrial fibrillation Past surgical history: Denies Social history: Patient is bed-bound, her niece as the multiple spindle router operator, denies smoking, alcohol, any other drug use Home medications: Amiodarone 200 mg b.i.d., aspirin 81 mg daily, Jardiance 25 mg daily, fluticasone inhaler, Lasix 80 mg, metoprolol succinate 100 mg daily, losartan 100 mg daily, Eliquis 5 mg b.i.d. Review of systems Patient seen and examined at the bedside Patient extubated on 12/28 ABG reviewed compensated Alert and oriented x3 Patient diuresing well Reports of back pain On pureed diet BiPAP for night Objective vital signs Vital Sign Date Time Temp Pulse Resp B/P (MAP) Pulse Ox O2 Delivery O2 Flow Rate FiO2 12/30/24 07:00 81 17 131/62 (85) 97 12/30/24 06:29 Nasal Cannula* 4 36 12/30/24 04:00 98.1 98.1 Total Intake and Output 12/29/24 12/29/24 12/30/24 15:00 23:00 07:00 Intake Total 142 ml 529 ml 511 ml Output Total 1150 ml 1300 ml Balance 142 ml -621 ml -789 ml medications Current Medications Medications Dose Ordered Sig/Julito Route Start Time Stop Time Status Last Admin Dose Admin Diagnostic Test (Pha) 1 strip Q6HR 12/15/24 12:00 12/30/24 05:42 1 STRIP Insulin Human Regular Q6HR SC 12/15/24 12:00 12/30/24 05:43 4 UNITS Dextrose 50 ml UD PRN IV 12/15/24 07:00 Enteral Nutritional Formula 1,000 ml 40ML/HR GT 12/16/24 12:30 12/21/24 18:27 1,000 ML Enoxaparin Sodium 150 mg Q12HR SC 12/16/24 22:00 12/29/24 21:49 150 MG Ipratropium [place] 0.5 mg Q6HR NEB 12/17/24 00:00 12/30/24 06:29 0.5 MG Albuterol 2.5 mg Q6HR NEB 12/17/24 00:00 12/30/24 06:29 2.5 MG Pantoprazole Sodium 40 mg DAILY IV 12/17/24 10:00 12/29/24 09:47 40 MG Meropenem 50 ml @ 17 mls/hr Q8HR IV 12/24/24 00:30 12/30/24 05:41 17 MLS/HR Methylprednisolone Sodium Succinate 40 mg BID IV 12/24/24 22:00 12/29/24 21:49 40 MG Lactulose 30 ml Q8HR GT 12/25/24 14:00 12/29/24 06:10 30 ML Metoclopramide HCl 5 mg Q12HR IV 12/25/24 10:00 12/29/24 21:47 5 MG Bumetanide 2 mg BIDD IV 12/25/24 18:46 12/30/24 05:40 2 MG Hydralazine HCl 50 mg TID PO 12/27/24 14:00 12/30/24 05:42 50 MG Metolazone 5 mg DAILY PO 12/28/24 06:00 12/29/24 09:48 5 MG Sodium Chloride 10 ml QSHIFT@10,22 IV 12/27/24 22:00 12/29/24 21:50 10 ML Acetaminophen 650 mg Q6HP PRN PO 12/28/24 14:45 Acetaminophen/ Hydrocodone Bitart 1 tab Q6HP PRN PO 12/28/24 14:45 12/28/24 22:53 1 TAB Morphine Sulfate 2 mg Q4HR PRN IV 12/28/24 14:45 Spironolactone 25 mg Q12H PO 12/28/24 22:45 12/29/24 22:10 25 MG Ondansetron HCl 4 mg Q8HPRN PRN IV 12/29/24 08:30 Doxycycline Hyclate 100 ml @ 50 mls/hr Q12H IV 12/29/24 09:30 12/29/24 21:06 50 MLS/HR Isosorbide Dinitrate 30 mg TID PO 12/30/24 14:00 UNV Examination Constitutional: Patient was morbidly obese, sedated and mechanically ventilated with RASS -4 Gen - no pallor, no icterus, no cyanosis, no clubbing, no LAD, trace edema. Skin - Patients skin is warm and dry. HEENT - normocephalic, atraumatic, moist mucous membranes. Neck - full ROM, no LAD, JVD could not be assessed. Pulmonary - B/L diminished breath sounds with inspiratory crackles, no wheezing cardiovascular - variable S1,S2 heard, no added sounds, no murmurs heard. GI - obese, soft abdomen, large area of dark discoloration below the umbilicus Neurological - currently mechanically ventilated, RASS -3, gag reflex present, pupils equal and reactive laboratory and microbiology Laboratory Tests 12/30/24 03:12 Test 12/30/24 03:12 Range/Units Serum Glucose 206 H 74-106 mg/dL Microbiology Date/Time Source Procedure Growth Status 12/23/24 17:20 Sputum Gram Stain - Final Complete 12/23/24 17:20 Respiratory Culture - Final Presumptive [place] albicans Complete 12/16/24 13:20 Blood Blood Culture - Final NO GROWTH AFTER 5 DAYS OF INCUBATION. Complete 12/15/24 13:45 Urine - Mayo Port Urine Culture - Final Escherichia coli - ESBL Complete 12/15/24 11:44 Nose MRSA Screen - Final Methicillin Resistant S.aureus Complete Problem List/Assessment/Plan Problem List/Assessment/Plan Neurology Acute metabolic encephalopathy likely due to hypercapnia - extubated on 12/28 Respiratory Acute on chronic hypoxic/hypercarbic respiratory failure likely due to COPD/LAZARA/OHS On mechanical ventilation Severe sepsis with acute organ dysfucntion likely due to pneumonia Pneumonia likely due to Gram +/- bacteria Pulmonary edema - on mechanical ventilation - sputum cultures growing MRSA and pseudomonas, cleared up - repeat sputum cultures growing asia - IV meropenam - diuresis with bumex, metolazone, spironolactone - methylprednisolone 20mg bid Cardiovascular Acute on chronic heart failure with preserved ejection fraction Severe right ventricular failure d/t ?underlying left heart failure ?LAZARA ?COPD , unknown chronicity, likely present on admission Pulmonary edema likely due to above Hypertensive heart disease with heart failure Bradycardia with AV block ?accidental medication overdose, junctional rhythm, resolved H/o atrial fibrillation - ECG showed bradycardia with prolonged AK interval - Echo shows LVEF 60% with mod degree LV diastolic dysfucntion, mod dilated LA, moderate degree MR, mod dilated and hypokinetic RV associated Dyskinesis with major RV failure - on Bumex - hydralazine 50 mg t.i.d. and isosorbide dinitrate 30 mg t.i.d. - on enoxaparin therapeutic dose - metolazone 5mg daily and spironolactone 25mg bid Nephrology VIVI on CKD likely prerenal due to VMN - FENa < 1% - BUN and creatinine improving Endocrinology Insulin-dependent type 2 diabetes mellitus with hyperglycemia - on insulin sliding scale - on tube feedings Infectious disease Sepsis likely due to pneumonia/UTI UTI with long-term indwelling Mayo catheter, with ESBL E.coli present on admission MRSA nares positive - urine culture shows ESBL E.Coli - respiratory culture pending - blood cultures showed growth of staph epidermidis which could be a contaminant, repeated cultures - on IV Meropenam - mupirocin ointment 12/23- Patient in the morning was put on a CPAP trial which she tolerated well and was extubated and she was following commands and was put on BiPaP. Post extubation her CO2 level kept increasing and patient was more drowsy and somnolent and had to be reintubated. 12/26- patient failed CPAP trial 12/27- patient was put on CPAP but could not meet criteria and was put on ventilator again. we will continue to diurese her. PICC line to be placed today Diet: pureed diet PUD prophylaxis: Protonix DVT prophylaxis: Enoxaparin right thigh PICC line inserted on 12/27 Mayo's catheter inserted on 12/16 Goals of care discussed with the patient's elder sister and niece for over 30 minutes. Full code Critical care time spent excluding procedures: 61 minutes Plan discussed with Dr. Peace Plan discussed with: Patient, Other (Sister, Niece, RN ( Genie )) My Orders My Orders Orders - JACKY GARCIA Procedure Category Date Status Time Isosorbide Dinitrate PHA 12/30/24 Logged Tablet (Isordil Tab 14:00 Bumetanide Injection PHA 12/30/24 Logged (Bumex Injection) 10:30 Acetazolamide PHA 12/30/24 Logged Injection (Diamox 10:30 Abg W/ Co-Ox RT 12/30/24 Logged 08:16 Dietary Evaluation Review Comments: 1. Pt is on fat energy support through Propofol of 860 kca, the TF needs to be a low fat, high proteiin formula. Suggest using Vital High Protein @45ml/hr, in 24 hr, pt will receive 1080 kca, 94 g protein, This formula will satisfy pt's protein neeeds at 79% and energy needs at 79% including the 860 kcal provided by Propofol running at 32.6ml/hr. Expected Outcomes/Goals: 1. Reassess protein and energy needs when pt is off vent, based on her true weight without fluid retention and possibably an improved kideny function, 2. Advance to CCHO-diet with updated protein and energy needs, when medically feasible providing that she passes a SAFETY SPEC eval. Date of Service: Dec 30, 2024 Billing Provider: FRANNY PEACE MD Common Visit Codes: 84151-[id number] CARE 30-74 MIN JACKY GARCIA Dec 30, 2024 08:35 FRANNY PEACE MD Dec 31, 2024 15:16
[2024-12-30 08:52] LABS: Base Excess 7.4 mmol/L (-2.0-3.0)
[2024-12-30] MEDS: BUMETANIDE 1mg/4ml VIAL (0.25mg/ml) IV ONE (10:21)
[2024-12-30] MEDS: acetaZOLAMIDE SODIUM 500 MG VL IV ONE (11:12)
[2024-12-30] MEDS: ISOSORBIDE DINITRATE 10 MG TAB PO SCH (13:14)
[2024-12-30] MEDS: methylPREDNISolone SOD SUCC 40 MG/ML VL IV SCH (21:52)
--- NOTE | 2024-12-30 23:29 | DVHPN2 ---
Progress Note - Dictate Date Seen: Dec 30, 2024 Medical Necessity Reason Pt with a Central, PICC or Fol: Yes The following are medically ne: Mayo Catheter Reason for mayo catheter: Strict I&O Subjective Patient was seen and evaluated in follow up in the ICU. Patient is on 3 LPM NC. Patient is complaining of SOB. WBC 10.9, CO2 34, BUN 36, Cook Fish Eggs 1.15. Chest x-ray shows diminished lung volumes with otherwise stable appearing moderate increased prominence of the pulmonary vasculature. vital signs Vital Sign Date Time Temp Pulse Resp B/P (MAP) Pulse Ox O2 Delivery O2 Flow Rate FiO2 12/30/24 22:45 82 12 123/60 (81) 99 12/30/24 22:00 Nasal Cannula* 3 32 12/30/24 20:00 98.3 98.3 Total Intake and Output 12/29/24 12/29/24 12/30/24 15:00 23:00 07:00 Intake Total 142 ml 529 ml 511 ml Output Total 1150 ml 1300 ml Balance 142 ml -621 ml -789 ml medications Current Medications Medications Dose Ordered Sig/Julito Route Start Time Stop Time Status Last Admin Dose Admin Diagnostic Test (Pha) 1 strip Q6HR 12/15/24 12:00 12/30/24 17:14 1 STRIP Insulin Human Regular Q6HR SC 12/15/24 12:00 12/30/24 17:16 4 UNITS Dextrose 50 ml UD PRN IV 12/15/24 07:00 Enoxaparin Sodium 150 mg Q12HR SC 12/16/24 22:00 12/30/24 21:52 150 MG Ipratropium [place] 0.5 mg Q6HR NEB 12/17/24 00:00 12/30/24 18:34 0.5 MG Albuterol 2.5 mg Q6HR NEB 12/17/24 00:00 12/30/24 18:34 2.5 MG Pantoprazole Sodium 40 mg DAILY IV 12/17/24 10:00 12/30/24 09:11 40 MG Meropenem 50 ml @ 17 mls/hr Q8HR IV 12/24/24 00:30 12/30/24 21:46 17 MLS/HR Lactulose 30 ml Q8HR GT 12/25/24 14:00 12/29/24 06:10 30 ML Bumetanide 2 mg BIDD IV 12/25/24 18:46 12/30/24 17:15 2 MG Hydralazine HCl 50 mg TID PO 12/27/24 14:00 12/30/24 21:50 50 MG Metolazone 5 mg DAILY PO 12/28/24 06:00 12/30/24 09:11 5 MG Sodium Chloride 10 ml QSHIFT@10,22 IV 12/27/24 22:00 12/30/24 21:52 10 ML Acetaminophen 650 mg Q6HP PRN PO 12/28/24 14:45 Acetaminophen/ Hydrocodone Bitart 1 tab Q6HP PRN PO 12/28/24 14:45 12/30/24 21:51 1 TAB Morphine Sulfate 2 mg Q4HR PRN IV 12/28/24 14:45 Spironolactone 25 mg Q12H PO 12/28/24 22:45 12/30/24 21:50 25 MG Ondansetron HCl 4 mg Q8HPRN PRN IV 12/29/24 08:30 Doxycycline Hyclate 100 ml @ 50 mls/hr Q12H IV 12/29/24 09:30 12/30/24 20:55 50 MLS/HR Isosorbide Dinitrate 30 mg TID PO 12/30/24 14:00 12/30/24 21:49 30 MG Methylprednisolone Sodium Succinate 20 mg BID IV 12/30/24 22:00 12/30/24 21:52 20 MG objective GENERAL: Alert and oriented x 3. No acute distress. Morbidly obese. EYES: PERRL, EOMI. Anicteric. HENT: Moist mucous membranes. LUNGS: Decreased all breath sounds. CARDIOVASCULAR: Regular rate and rhythm. ABDOMEN: Soft, nontender and nondistended. EXTREMITIES: No edema. SKIN: Warm, dry. laboratory and microbiology Laboratory Tests 12/30/24 03:12 Test 12/30/24 03:12 Range/Units Serum Glucose 206 H 74-106 mg/dL Problem List Accidental medication overdose. Acute encephalopathy. Acute respiratory failure. Respiratory acidosis. Right pleural effusion. Leukocytosis Chest pain. Bradycardia. CHF. CAD. Acute renal failure Hyperkalemia. UTI. DM type 2. Hypertension. Morbid obesity. History of CVA. Assessment/Plan Continued all current supportive medical care. Morphine and [place] for pain. Diuretics with Bumex. DVT and GI prophylactics. IV Hydralazine for SBP >150. IV antibiotics as ordered. Vasopressors for hemodynamic support. Additional plan as per the hospital course. Critical care time of 45 minutes provided to include time spent evaluation of patient at bedside, when appropriate patient/family education for diagnosis, treatment plan, review of pertinent medical information and discussion of care with specialty providers and PCP. Dietary Evaluation Review Comments: 1. Pt is on fat energy support through Propofol of 860 kca, the TF needs to be a low fat, high proteiin formula. Suggest using Vital High Protein @45ml/hr, in 24 hr, pt will receive 1080 kca, 94 g protein, This formula will satisfy pt's protein neeeds at 79% and energy needs at 79% including the 860 kcal provided by Propofol running at 32.6ml/hr. Expected Outcomes/Goals: 1. Reassess protein and energy needs when pt is off vent, based on her true weight without fluid retention and possibably an improved kideny function, 2. Advance to CCHO-diet with updated protein and energy needs, when medically feasible providing that she passes a BINDING NICKER eval. Plan discussed with: Patient FRANTZ HOSKINS MD Dec 30, 2024 23:29
[2024-12-31] VITALS (103 sets, daily range): BP systolic 101–183; BP diastolic 41–88; PULSE 73–93; RESP 7–21; TEMP 98.1–100.2; O2SAT 88–100
[2024-12-31 03:57] LABS: Alanine Aminotransferase 21 U/L (7-40); Alkaline Phosphatase 57 U/L (46-116); Anion Gap 9 (5-15); BUN/Creatinine Ratio 38.1 (10.0-20.0); Basophils # (auto) 0 10 ^3/uL (0-0.2); Calcium 10.4 mg/dL (8.7-10.4); Eosinophils # (auto) 0 10 ^3/uL (0-0.8); Eosinophils % (auto) 0.1 % (0.0-7.0); Lymphocytes # (auto) 0.6 10 ^3/uL (0.4-5.4); Mean Corpuscular Hemoglobin 24.5 pg (28.0-32.0); Neutrophils # (auto) 9.2 10 ^3/uL (1.6-8.6); Neutrophils % (auto) 88.5 % (37.0-80.0); Nucleated Red Blood Cells % 0.1 %; Red Cell Distribution Width 18.7 % (11.8-14.3); Sodium 140 mmol/L (136-145); Total Protein 6.7 g/dL (5.7-8.2); White Blood Cell 10.4 10^3/uL (4.4-10.8)
[2024-12-31 03:58] LABS: Albumin 3.9 g/dL (3.2-4.8); Aspartate Aminotransferase 14 U/L (13-40)
[2024-12-31 03:59] LABS: Bilirubin, Total 0.3 mg/dL (0.2-1.0)
[2024-12-31 04:01] LABS: Basophils % (auto) 0.1 % (0.0-2.0); Hematocrit 34.2 % (36.0-46.0); Hemoglobin 10.8 g/dL (12.2-16.2); Lymphocytes % (auto) 5.7 % (10.0-50.0); Mean Corpuscular Hgb Conc. 31.6 g/dL (32.0-36.0); Mean Corpuscular Volume 77.7 fL (80.0-100.0); Monocytes # (auto) 0.6 10 ^3/uL (0-1.3); Monocytes % (auto) 5.6 % (0.0-12.0); Platelet Count (auto) 399 10^3/uL (140-450)
[2024-12-31 04:13] LABS: Blood Urea Nitrogen 45 mg/dL (9-23); Carbon Dioxide 35 mmol/L (20-31); Chloride 96 mmol/L (98-107); Glucose 183 mg/dL (74-106); Potassium 3.5 mmol/L (3.5-5.1)
--- NOTE | 2024-12-31 05:07 | DVH ---
EXAM: XR Chest, 1 View CLINICAL INDICATION: B/L diminished breath sounds TECHNIQUE: Frontal view of the chest. COMPARISON: XY CHEST PORTABLE on DOS: 12/30/24, XY CHEST PORTABLE on DOS: 12/29/24, XY CHEST XRAY 1 V IEW on DOS: 12/28/24, XY CHEST XRAY 1 VIEW on DOS: 12/27/24, XY CHEST XRAY 1 VIEW on DOS: 12/26/24 FINDINGS: LUNGS AND PLEURAL SPACES: See below. HEART: Cardiomegaly with mild congestion. MEDIASTINUM: Unremarkable. Normal mediastinal contour. BONES/JOINTS: Unremarkable. No acute fracture. OTHER FINDINGS: . . . IMPRESSION: Cardiomegaly with mild congestion.
[2024-12-31] MEDS: ONDANSETRON HCL 4 MG/2 ML VIAL IV PRN (06:00)
[2024-12-31] MEDS ORDERED: POTASSIUM CHL 20MEQ/100ML 100 ML IV SCH (11:00)
[2024-12-31] MEDS: BUMETANIDE 1mg/4ml VIAL (0.25mg/ml) IV ONE (12:09)
[2024-12-31] MEDS: POTASSIUM CHL 20MEQ/50ML 50 ML IV SCH (12:15)
[2024-12-31] MEDS: Glucerna Carbsteady SHAKE Vanilla 8oz PO SCH (13:33)
[2024-12-31 13:34] LABS: Base Excess 9.5 mmol/L (-2.0-3.0)
[2024-12-31] MEDS ORDERED: VANCOMYCIN PER PHARMACY 0 MG IV SCH (18:15)
--- NOTE | 2024-12-31 18:20 | DVHPNRES ---
Progress Note Date Seen: Dec 31, 2024 Resident Creating Document: JACKY GARCIA RESIDENT Medical Necessity Reason Pt with a Central, PICC or Fol: Yes The following are medically ne: Mayo Catheter Reason for mayo catheter: Strict I&O Subjective Review of Systems Patient is a 59-year-old female with a past medical history of COPD, insulin dependent type 2 diabetes mellitus, congestive heart failure, coronary artery disease was brought to the hospital via EMS with altered mental status and bradycardia. As per patient's niece who is her take her knitting machine fixer head, when she went to her room to give in the afternoon, she found with the patient to be confused and she checked her vitals reported low blood pressure and heart rate in 30s which she suspected might be because she took her blood pressure medications twice, following which she called EMS and the patient was brought to the hospital. She reports patient has been in and out of the hospital since the past 6 months for complains of shortness of breath. The last time she was hospitalized was in [facility] about 2.5-3 months ago following which she was sent to rehab facility and [facility] from where she got discharged about a week ago to home. Patient has been bed-bound since the last 8 years. At home patient has an oxygen concentrator and uses oxygen at 8-10 L per minute. Patient came in with altered mental status and ABG showed respiratory acidosis following which she was intubated and put on mechanical ventilation. Past medical history: COPD with 8-10 L oxygen per minute at home, insulin dependent type 2 diabetes mellitus, congestive heart failure, coronary artery disease, atrial fibrillation Past surgical history: Denies Social history: Patient is bed-bound, her niece as the knitting machine fixer head, denies smoking, alcohol, any other drug use Home medications: Amiodarone 200 mg b.i.d., aspirin 81 mg daily, Jardiance 25 mg daily, fluticasone inhaler, Lasix 80 mg, metoprolol succinate 100 mg daily, losartan 100 mg daily, Eliquis 5 mg b.i.d. Review of systems Patient seen and examined at the bedside Patient extubated on 12/28 ABG reviewed compensated Alert and oriented x3 Patient diuresing well Reports of back pain On pureed diet BiPAP for night Objective vital signs Vital Sign Date Time Temp Pulse Resp B/P (MAP) Pulse Ox O2 Delivery O2 Flow Rate FiO2 12/31/24 18:15 86 16 153/75 (101) 93 12/31/24 18:00 Nasal Cannula* 2 28 12/31/24 16:00 99.7 99.7 Total Intake and Output 12/30/24 12/30/24 12/31/24 15:00 23:00 07:00 Intake Total 235 ml 467 ml 584 ml Output Total 1200 ml 1800 ml Balance 235 ml -733 ml -1216 ml medications Current Medications Medications Dose Ordered Sig/Julito Route Start Time Stop Time Status Last Admin Dose Admin Diagnostic Test (Pha) 1 strip Q6HR 12/15/24 12:00 12/31/24 17:55 1 STRIP Insulin Human Regular Q6HR SC 12/15/24 12:00 12/31/24 18:01 6 UNITS Dextrose 50 ml UD PRN IV 12/15/24 07:00 Enoxaparin Sodium 150 mg Q12HR SC 12/16/24 22:00 12/31/24 10:38 150 MG Ipratropium [place] 0.5 mg Q6HR NEB 12/17/24 00:00 12/31/24 11:42 0.5 MG Albuterol 2.5 mg Q6HR NEB 12/17/24 00:00 12/31/24 11:42 2.5 MG Pantoprazole Sodium 40 mg DAILY IV 12/17/24 10:00 12/31/24 10:37 40 MG Meropenem 50 ml @ 17 mls/hr Q8HR IV 12/24/24 00:30 12/31/24 13:25 17 MLS/HR Lactulose 30 ml Q8HR GT 12/25/24 14:00 12/29/24 06:10 30 ML Bumetanide 2 mg BIDD IV 12/25/24 18:46 12/31/24 17:55 2 MG Hydralazine HCl 50 mg TID PO 12/27/24 14:00 12/31/24 13:33 50 MG Metolazone 5 mg DAILY PO 12/28/24 06:00 12/31/24 10:37 5 MG Sodium Chloride 10 ml QSHIFT@10,22 IV 12/27/24 22:00 12/31/24 10:37 10 ML Acetaminophen 650 mg Q6HP PRN PO 12/28/24 14:45 Acetaminophen/ Hydrocodone Bitart 1 tab Q6HP PRN PO 12/28/24 14:45 12/31/24 14:05 1 TAB Morphine Sulfate 2 mg Q4HR PRN IV 12/28/24 14:45 Spironolactone 25 mg Q12H PO 12/28/24 22:45 12/31/24 10:38 25 MG Ondansetron HCl 4 mg Q8HPRN PRN IV 12/29/24 08:30 12/31/24 06:00 4 MG Isosorbide Dinitrate 30 mg TID PO 12/30/24 14:00 12/31/24 13:35 30 MG Methylprednisolone Sodium Succinate 20 mg BID IV 12/30/24 22:00 12/31/24 10:37 20 MG Enteral Nutritional Formula 240 ml TIDWM PO 12/31/24 12:00 12/31/24 13:33 240 ML Potassium Chloride 100 ml @ 50 mls/hr Q2H IV 12/31/24 11:00 12/31/24 14:59 Cancel Vancomycin HCl 0 ml @ 0 mls/hr UD IV 12/31/24 18:15 UNV Examination Constitutional: Patient morbidly obese, on NC, Gen - no pallor, no icterus, no cyanosis, no clubbing, no LAD, trace edema. Skin - Patients skin is warm and dry. HEENT - normocephalic, atraumatic, moist mucous membranes. Neck - full ROM, no LAD, JVD could not be assessed. Pulmonary - B/L diminished breath sounds with inspiratory crackles, no wheezing cardiovascular - variable S1,S2 heard, no added sounds, no murmurs heard. GI - obese, soft abdomen, large area of dark discoloration below the umbilicus Neurological - A/O X 3, following commands and able to move arms with strength 4/5 but weakness in legs, understandable speech, able to swallow laboratory and microbiology Laboratory Tests 12/31/24 03:15 Test 12/31/24 03:15 Range/Units Serum Glucose 183 H 74-106 mg/dL Microbiology Date/Time Source Procedure Growth Status 12/23/24 17:20 Sputum Gram Stain - Final Complete 12/23/24 17:20 Respiratory Culture - Final Presumptive [place] albicans Complete 12/16/24 13:20 Blood Blood Culture - Final NO GROWTH AFTER 5 DAYS OF INCUBATION. Complete 12/15/24 13:45 Urine - Mayo [place] Urine Culture - Final Escherichia coli - ESBL Complete 12/15/24 11:44 Nose MRSA Screen - Final Methicillin Resistant S.aureus Complete Problem List/Assessment/Plan Problem List/Assessment/Plan Neurology Acute metabolic encephalopathy likely due to hypercapnia - extubated on 12/28 Respiratory Acute on chronic hypoxic/hypercarbic respiratory failure likely due to COPD/LAZARA/OHS On mechanical ventilation Severe sepsis with acute organ dysfucntion likely due to pneumonia Pneumonia likely due to Gram +/- bacteria Pulmonary edema - on mechanical ventilation - sputum cultures growing MRSA and pseudomonas, cleared up - repeat sputum cultures growing asia - IV meropenam - diuresis with bumex, metolazone, spironolactone - methylprednisolone 20mg bid Cardiovascular Acute on chronic heart failure with preserved ejection fraction Severe right ventricular failure d/t ?underlying left heart failure ?LAZARA ?COPD , unknown chronicity, likely present on admission Pulmonary edema likely due to above Hypertensive heart disease with heart failure Bradycardia with AV block ?accidental medication overdose, junctional rhythm, resolved H/o atrial fibrillation - ECG showed bradycardia with prolonged CT interval - Echo shows LVEF 60% with mod degree LV diastolic dysfucntion, mod dilated LA, moderate degree MR, mod dilated and hypokinetic RV associated Dyskinesis with major RV failure - on Bumex - hydralazine 50 mg t.i.d. and isosorbide dinitrate 30 mg t.i.d. - on enoxaparin therapeutic dose - metolazone 5mg daily and spironolactone 25mg bid Nephrology VIVI on CKD likely prerenal due to VMN - FENa < 1% - BUN and creatinine improving Endocrinology Insulin-dependent type 2 diabetes mellitus with hyperglycemia - on insulin sliding scale - on tube feedings Infectious disease Sepsis likely due to pneumonia/UTI UTI with long-term indwelling Mayo catheter, with ESBL E.coli present on admission MRSA nares positive - urine culture shows ESBL E.Coli - respiratory culture pending - blood cultures showed growth of staph epidermidis which could be a contaminant, repeated cultures - on IV Meropenam - mupirocin ointment - 12/31 cultures repeated and started on vancomycin 12/23- Patient in the morning was put on a CPAP trial which she tolerated well and was extubated and she was following commands and was put on BiPaP. Post extubation her CO2 level kept increasing and patient was more drowsy and somnolent and had to be reintubated. 12/26- patient failed CPAP trial 12/27- patient was put on CPAP but could not meet criteria and was put on ventilator again. we will continue to diurese her. PICC line to be placed today 12/28- patient extubated Diet: pureed diet PUD prophylaxis: Protonix DVT prophylaxis: Enoxaparin right thigh PICC line inserted on 12/27 Mayo's catheter inserted on 12/16 Goals of care discussed with the patient's elder sister and niece for over 29 minutes. Full code Critical care time spent excluding procedures: 63 minutes Plan discussed with Dr. Peace Plan discussed with: Patient, Other (sister ( Aurelia), RN ( Genie )) My Orders My Orders Orders - JACKY GARCIA RESIDENT Procedure Category Date Status Time Chest Xray 1 View XY 12/31/24 Resulted 04:00 Nutritional PHA 12/31/24 In Process Supplements (Glucerna 12:00 Abg W/ Co-Ox RT 12/31/24 Logged 12:00 Blood Culture ANIYA 12/31/24 Logged 18:11 Vancomycin Per PHA 12/31/24 Logged Pharmacy 18:15 Complete Blood Count LAB 01/01/25 Verified 04:00 Magnesium LAB 01/01/25 Verified 04:00 Basic Metabolic Panel LAB 01/01/25 Verified 04:00 Chest Xray 1 View XY 01/01/25 Logged 04:00 Dietary Evaluation Review Comments: 1. Pt is on fat energy support through Propofol of 860 kca, the TF needs to be a low fat, high proteiin formula. Suggest using Vital High Protein @45ml/hr, in 24 hr, pt will receive 1080 kca, 94 g protein, This formula will satisfy pt's protein neeeds at 79% and energy needs at 79% including the 860 kcal provided by Propofol running at 32.6ml/hr. Expected Outcomes/Goals: 1. Reassess protein and energy needs when pt is off vent, based on her true weight without fluid retention and possibably an improved kideny function, 2. Advance to [facility]-diet with updated protein and energy needs, when medically feasible providing that she passes a MARBLE INSTALLER eval. Date of Service: Dec 31, 2024 Billing Provider: FRANNY PEACE MD Common Visit Codes: [id number] CARE 30-74 MIN JACKY GARCIA RESIDENT Dec 31, 2024 18:20 FRANNY PEACE MD Jan 01, 2025 15:58
[2024-12-31] MEDS: VANCOMYCIN 1.75GM/350ML 350 ML IV SCH (20:09)
--- NOTE | 2024-12-31 23:51 | DVHPN2 ---
Progress Note - Dictate Date Seen: Dec 31, 2024 Medical Necessity Reason Pt with a Central, PICC or Fol: Yes The following are medically ne: Mayo Catheter Reason for mayo catheter: Strict I&O Subjective Patient was seen and evaluated in follow up in the ICU. Patient is on 2 LPM NC. CO2 35, BUN 45, Hair Specialist 1.18. Chest x-ray shows cardiomegaly with mild congestion. vital signs Vital Sign Date Time Temp Pulse Resp B/P (MAP) Pulse Ox O2 Delivery O2 Flow Rate FiO2 12/31/24 22:15 86 19 120/63 (82) 95 12/31/24 22:00 Nasal Cannula* 2 28 12/31/24 20:00 98.4 98.4 Total Intake and Output 12/30/24 12/30/24 12/31/24 15:00 23:00 07:00 Intake Total 235 ml 467 ml 584 ml Output Total 1200 ml 1800 ml Balance 235 ml -733 ml -1216 ml medications Current Medications Medications Dose Ordered Sig/Julito Route Start Time Stop Time Status Last Admin Dose Admin Diagnostic Test (Pha) 1 strip Q6HR 12/15/24 12:00 12/31/24 23:43 1 STRIP Insulin Human Regular Q6HR SC 12/15/24 12:00 12/31/24 23:42 2 UNITS Dextrose 50 ml UD PRN IV 12/15/24 07:00 Enoxaparin Sodium 150 mg Q12HR SC 12/16/24 22:00 12/31/24 21:32 150 MG Ipratropium [place] 0.5 mg Q6HR NEB 12/17/24 00:00 12/31/24 18:37 0.5 MG Albuterol 2.5 mg Q6HR NEB 12/17/24 00:00 12/31/24 18:00 2.5 MG Pantoprazole Sodium 40 mg DAILY IV 12/17/24 10:00 12/31/24 10:37 40 MG Meropenem 50 ml @ 17 mls/hr Q8HR IV 12/24/24 00:30 12/31/24 21:27 17 MLS/HR Lactulose 30 ml Q8HR GT 12/25/24 14:00 12/29/24 06:10 30 ML Bumetanide 2 mg BIDD IV 12/25/24 18:46 12/31/24 17:55 2 MG Hydralazine HCl 50 mg TID PO 12/27/24 14:00 12/31/24 21:31 50 MG Metolazone 5 mg DAILY PO 12/28/24 06:00 12/31/24 10:37 5 MG Sodium Chloride 10 ml QSHIFT@10,22 IV 12/27/24 22:00 12/31/24 21:32 10 ML Acetaminophen 650 mg Q6HP PRN PO 12/28/24 14:45 Acetaminophen/ Hydrocodone Bitart 1 tab Q6HP PRN PO 12/28/24 14:45 12/31/24 21:32 1 TAB Morphine Sulfate 2 mg Q4HR PRN IV 12/28/24 14:45 Spironolactone 25 mg Q12H PO 12/28/24 22:45 12/31/24 21:31 25 MG Ondansetron HCl 4 mg Q8HPRN PRN IV 12/29/24 08:30 12/31/24 21:28 4 MG Isosorbide Dinitrate 30 mg TID PO 12/30/24 14:00 12/31/24 21:30 30 MG Methylprednisolone Sodium Succinate 20 mg BID IV 12/30/24 22:00 12/31/24 21:27 20 MG Enteral Nutritional Formula 240 ml TIDWM PO 12/31/24 12:00 12/31/24 13:33 240 ML Potassium Chloride 100 ml @ 50 mls/hr Q2H IV 12/31/24 11:00 12/31/24 14:59 Cancel Vancomycin HCl 0 ml @ 0 mls/hr UD IV 12/31/24 18:15 Vancomycin HCl 350 ml @ 233.333 mls/hr Q16H IV 12/31/24 20:00 12/31/24 20:09 233.333 MLS/HR objective GENERAL: Alert and oriented x 3. No acute distress. Morbidly obese. EYES: PERRL, EOMI. Anicteric. HENT: Moist mucous membranes. LUNGS: Decreased all breath sounds. CARDIOVASCULAR: Regular rate and rhythm. ABDOMEN: Soft, nontender and nondistended. EXTREMITIES: No edema. SKIN: Warm, dry. laboratory and microbiology Laboratory Tests 12/31/24 03:15 Test 12/31/24 03:15 Range/Units Serum Glucose 183 H 74-106 mg/dL Problem List Accidental medication overdose. Acute encephalopathy. Acute respiratory failure. Respiratory acidosis. Right pleural effusion. Leukocytosis Chest pain. Bradycardia. CHF. CAD. Acute renal failure Hyperkalemia. UTI. DM type 2. Hypertension. Morbid obesity. History of CVA. Assessment/Plan Continued all current supportive medical care. Morphine and [place] for pain. Diuretics with Bumex. DVT and GI prophylactics. IV Hydralazine for SBP >150. IV antibiotics as ordered. Vasopressors for hemodynamic support. Additional plan as per the hospital course. Critical care time of 45 minutes provided to include time spent evaluation of patient at bedside, when appropriate patient/family education for diagnosis, treatment plan, review of pertinent medical information and discussion of care with specialty providers and PCP. Dietary Evaluation Review Comments: 1. Pt is on fat energy support through Propofol of 860 kca, the TF needs to be a low fat, high proteiin formula. Suggest using Vital High Protein @45ml/hr, in 24 hr, pt will receive 1080 kca, 94 g protein, This formula will satisfy pt's protein neeeds at 79% and energy needs at 79% including the 860 kcal provided by Propofol running at 32.6ml/hr. Expected Outcomes/Goals: 1. Reassess protein and energy needs when pt is off vent, based on her true weight without fluid retention and possibably an improved kideny function, 2. Advance to [facility]-diet with updated protein and energy needs, when medically feasible providing that she passes a COMPUTER BUILDER eval. Plan discussed with: Patient FRANTZ HOSKINS MD Dec 31, 2024 23:51
[2025-01-01] VITALS (103 sets, daily range): BP systolic 112–166; BP diastolic 50–97; PULSE 81–99; RESP 9–24; TEMP 98.2–99.3; O2SAT 82–100
[2025-01-01 03:56] LABS: Basophils # (auto) 0.1 10 ^3/uL (0-0.2); Eosinophils # (auto) 0 10 ^3/uL (0-0.8); Eosinophils % (auto) 0.1 % (0.0-7.0); Hematocrit 36.1 % (36.0-46.0); Hemoglobin 11.3 g/dL (12.2-16.2); Lymphocytes # (auto) 0.8 10 ^3/uL (0.4-5.4); Mean Corpuscular Hemoglobin 24.6 pg (28.0-32.0); Mean Corpuscular Hgb Conc. 31.2 g/dL (32.0-36.0); Mean Corpuscular Volume 78.8 fL (80.0-100.0); Monocytes # (auto) 0.5 10 ^3/uL (0-1.3); Monocytes % (auto) 5.1 % (0.0-12.0); Red Blood Cells 4.58 10^6/uL (4.0-5.20); White Blood Cell 9.1 10^3/uL (4.4-10.8)
[2025-01-01 03:59] LABS: Basophils % (auto) 0.7 % (0.0-2.0); Lymphocytes % (auto) 8.8 % (10.0-50.0); Neutrophils # (auto) 7.7 10 ^3/uL (1.6-8.6); Neutrophils % (auto) 85.3 % (37.0-80.0); Nucleated Red Blood Cells % 0.1 %; Platelet Count (auto) 367 10^3/uL (140-450); Red Cell Distribution Width 18.7 % (11.8-14.3)
--- NOTE | 2025-01-01 04:00 | DVH ---
CHEST RADIOGRAPH Indication: SOB Technique: Single frontal view of the chest was obtained Comparison: XY CHEST XRAY 1 VIEW on DOS: 12/31/24, XY CHEST PORTABLE on DOS: 12/30/24, XY CHEST PORTABL E on DOS: 12/29/24 IMPRESSION: The heart appears enlarged. There is moderate pulmonary vascular congestion. Enteric tube is presen t, tip beyond the inferior level of the examination.
[2025-01-01 04:05] LABS: Potassium 4.5 mmol/L (3.5-5.1)
[2025-01-01 04:06] LABS: Anion Gap 7 (5-15)
[2025-01-01 04:07] LABS: Calcium 10.3 mg/dL (8.7-10.4)
[2025-01-01 04:11] LABS: BUN/Creatinine Ratio 39.7 (10.0-20.0)
[2025-01-01 04:17] LABS: Blood Urea Nitrogen 48 mg/dL (9-23); Carbon Dioxide 34 mmol/L (20-31); Chloride 94 mmol/L (98-107); Glucose 201 mg/dL (74-106); Sodium 135 mmol/L (136-145)
[2025-01-01 12:55] LABS: INR 1.14 (0.9-1.15); Partial Thromboplastin Time 29.6 SEC (24.5-34.5); Prothrombin Time 11.9 sec (9.3-11.8)
[2025-01-01] MEDS: BUMETANIDE 1mg/4ml VIAL (0.25mg/ml) IV ONE (13:42)
[2025-01-01] MEDS ORDERED: ONDANSETRON HCL 4 MG/2 ML VIAL IV PRN (14:30)
[2025-01-01] MEDS: METOCLOPRAMIDE HCL 5MG/ml INJ 2ml VIAL IV PRN (16:41)
[2025-01-01] MEDS: SALINE 0.65 % NASAL SPRAY 45ML BOTTLE EACHNOSTRI ONE (16:44)
[2025-01-01] MEDS ORDERED: PROMETHAZINE HCL 6.25 MG/5 ML ORAL SYRUP PO PRN (17:00)
[2025-01-01] MEDS: BUMETANIDE 1mg/4ml VIAL (0.25mg/ml) IV SCH (17:23)
[2025-01-01] MEDS: SALINE 0.65 % NASAL SPRAY 45ML BOTTLE EACHNOSTRI SCH (17:24)
--- NOTE | 2025-01-01 19:19 | DVHPNRES ---
Progress Note Date Seen: Jan 01, 2025 Resident Creating Document: JACKY GARCIA RESIDENT Medical Necessity Reason Pt with a Central, PICC or Fol: Yes The following are medically ne: Mayo Catheter Reason for mayo catheter: Strict I&O Subjective Review of Systems Patient is a 59-year-old female with a past medical history of COPD, insulin dependent type 2 diabetes mellitus, congestive heart failure, coronary artery disease was brought to the hospital via EMS with altered mental status and bradycardia. As per patient's niece who is her take her director community health nursing, when she went to her room to give in the afternoon, she found with the patient to be confused and she checked her vitals reported low blood pressure and heart rate in 30s which she suspected might be because she took her blood pressure medications twice, following which she called EMS and the patient was brought to the hospital. She reports patient has been in and out of the hospital since the past 6 months for complains of shortness of breath. The last time she was hospitalized was in [facility] about 2.5-3 months ago following which she was sent to rehab facility and [facility] from where she got discharged about a week ago to home. Patient has been bed-bound since the last 8 years. At home patient has an oxygen concentrator and uses oxygen at 8-10 L per minute. Patient came in with altered mental status and ABG showed respiratory acidosis following which she was intubated and put on mechanical ventilation. Past medical history: COPD with 8-10 L oxygen per minute at home, insulin dependent type 2 diabetes mellitus, congestive heart failure, coronary artery disease, atrial fibrillation Past surgical history: Denies Social history: Patient is bed-bound, her niece as the director community health nursing, denies smoking, alcohol, any other drug use Home medications: Amiodarone 200 mg b.i.d., aspirin 81 mg daily, Jardiance 25 mg daily, fluticasone inhaler, Lasix 80 mg, metoprolol succinate 100 mg daily, losartan 100 mg daily, Eliquis 5 mg b.i.d. Review of systems Patient seen and examined at the bedside Patient extubated on 12/28 Alert and oriented x3 Patient diuresing well Reports of back pain On pureed diet, tolerating about 25% of the diet BiPAP for night Objective vital signs Vital Sign Date Time Temp Pulse Resp B/P (MAP) Pulse Ox O2 Delivery O2 Flow Rate FiO2 01/01/25 18:46 84 13 100 01/01/25 18:45 153/79 (103) 01/01/25 18:40 Nasal Cannula 5.0 01/01/25 18:40 40 01/01/25 16:00 99.0 99.0 Total Intake and Output 12/31/24 12/31/24 01/01/25 15:00 23:00 07:00 Intake Total 226 ml 712.333 ml 467 ml Output Total 1375 ml 2350 ml Balance 226 ml -662.667 ml -1883 ml medications Current Medications Medications Dose Ordered Sig/Julito Route Start Time Stop Time Status Last Admin Dose Admin Diagnostic Test (Pha) 1 strip Q6HR 12/15/24 12:00 01/01/25 17:24 1 STRIP Insulin Human Regular Q6HR SC 12/15/24 12:00 01/01/25 17:39 4 UNITS Dextrose 50 ml UD PRN IV 12/15/24 07:00 Ipratropium [place] 0.5 mg Q6HR NEB 12/17/24 00:00 01/01/25 18:40 0.5 MG Albuterol 2.5 mg Q6HR NEB 12/17/24 00:00 01/01/25 18:40 2.5 MG Pantoprazole Sodium 40 mg DAILY IV 12/17/24 10:00 01/01/25 10:57 40 MG Meropenem 50 ml @ 17 mls/hr Q8HR IV 12/24/24 00:30 01/01/25 13:36 17 MLS/HR Lactulose 30 ml Q8HR GT 12/25/24 14:00 01/01/25 13:36 30 ML Hydralazine HCl 50 mg TID PO 12/27/24 14:00 01/01/25 13:37 50 MG Metolazone 5 mg DAILY PO 12/28/24 06:00 01/01/25 10:59 5 MG Sodium Chloride 10 ml QSHIFT@10,22 IV 12/27/24 22:00 01/01/25 10:59 10 ML Acetaminophen 650 mg Q6HP PRN PO 12/28/24 14:45 Spironolactone 25 mg Q12H PO 12/28/24 22:45 01/01/25 10:58 25 MG Isosorbide Dinitrate 30 mg TID PO 12/30/24 14:00 01/01/25 13:37 30 MG Enteral Nutritional Formula 240 ml TIDWM PO 12/31/24 12:00 12/31/24 13:33 240 ML Potassium Chloride 100 ml @ 50 mls/hr Q2H IV 12/31/24 11:00 12/31/24 14:59 Cancel Acetaminophen/ Hydrocodone Bitart 1 tab Q4HP PRN PO 01/01/25 11:00 Bumetanide 1 mg BIDD IV 01/01/25 18:00 01/01/25 17:23 1 MG Sodium Chloride 1 spr QID EACHNOSTRI 01/01/25 18:00 01/01/25 17:24 1 SPR Apixaban 5 mg BID PO 01/01/25 22:00 Ondansetron HCl 4 mg Q6HP PRN IV 01/01/25 18:00 Prednisone 40 mg DAILY PO 01/02/25 10:00 Metoprolol Tartrate 25 mg BID PO 01/01/25 22:00 Promethazine HCl 12.5 mg Q6HP PRN PO 01/01/25 17:00 Examination Constitutional: Patient morbidly obese, on NC, Gen - no pallor, no icterus, no cyanosis, no clubbing, no LAD, trace edema. Skin - Patients skin is warm and dry. HEENT - normocephalic, atraumatic, moist mucous membranes, bleeding seen in the nostrils Neck - full ROM, no LAD, JVD could not be assessed. Pulmonary - B/L diminished breath sounds with inspiratory crackles, no wheezing cardiovascular - variable S1,S2 heard, no added sounds, no murmurs heard. GI - obese, soft abdomen, large area of dark discoloration below the umbilicus Neurological - A/O X 3, following commands and able to move arms with strength 4/5 but weakness in legs, understandable speech, able to swallow laboratory and microbiology Laboratory Tests 01/01/25 03:14 Test 01/01/25 03:14 Range/Units Serum Glucose 201 H 74-106 mg/dL Microbiology Date/Time Source Procedure Growth Status 12/31/24 18:50 Blood Blood Culture - Preliminary NO GROWTH AFTER 24 HOURS OF INCUBATION. Resulted 12/31/24 18:30 Urine - Mayo [place] Urine Culture - Preliminary Resulted 12/23/24 17:20 Sputum Gram Stain - Final Complete 12/23/24 17:20 Respiratory Culture - Final Presumptive Asia albicans Complete 12/15/24 11:44 Nose MRSA Screen - Final Methicillin Resistant S.aureus Complete Problem List/Assessment/Plan Problem List/Assessment/Plan Neurology Acute metabolic encephalopathy likely due to hypercapnia - extubated on 12/28 Respiratory Acute on chronic hypoxic/hypercarbic respiratory failure likely due to COPD/LAZARA/OHS On mechanical ventilation Severe sepsis with acute organ dysfucntion likely due to pneumonia Pneumonia likely due to Gram +/- bacteria Pulmonary edema - on mechanical ventilation - sputum cultures growing MRSA and pseudomonas, cleared up - repeat sputum cultures growing asia - IV meropenam - diuresis with bumex, metolazone, spironolactone - prednisone 40mg qd Cardiovascular Acute on chronic heart failure with preserved ejection fraction Severe right ventricular failure d/t ?underlying left heart failure ?LAZARA ?COPD , unknown chronicity, likely present on admission Pulmonary edema likely due to above Hypertensive heart disease with heart failure Bradycardia with AV block ?accidental medication overdose, junctional rhythm, resolved H/o atrial fibrillation - ECG showed bradycardia with prolonged IA interval - Echo shows LVEF 60% with mod degree LV diastolic dysfucntion, mod dilated LA, moderate degree MR, mod dilated and hypokinetic RV associated Dyskinesis with major RV failure - on Bumex - hydralazine 50 mg t.i.d. and isosorbide dinitrate 30 mg t.i.d. - metolazone 5mg daily and spironolactone 25mg bid - metoprolol tartrate 25mg bid - eliquis 5mg bid Nephrology VIVI on CKD likely prerenal due to VMN - FENa < 1% - BUN and creatinine improving Endocrinology Insulin-dependent type 2 diabetes mellitus with hyperglycemia - on insulin sliding scale - on tube feedings Infectious disease Sepsis likely due to pneumonia/UTI UTI with long-term indwelling Mayo catheter, with ESBL E.coli present on admission MRSA nares positive - urine culture shows ESBL E.Coli - respiratory culture pending - blood cultures showed growth of staph epidermidis which could be a contaminant, repeated cultures - on IV Meropenam - mupirocin ointment - 12/31 cultures repeated and started on vancomycin 12/23- Patient in the morning was put on a CPAP trial which she tolerated well and was extubated and she was following commands and was put on BiPaP. Post extubation her CO2 level kept increasing and patient was more drowsy and somnolent and had to be reintubated. 12/26- patient failed CPAP trial 12/27- patient was put on CPAP but could not meet criteria and was put on ventilator again. we will continue to diurese her. PICC line to be placed today 12/28- patient extubated Diet: pureed diet PUD prophylaxis: Protonix DVT prophylaxis: eliquis right thigh PICC line inserted on 12/27 Mayo's catheter changed on 01/01 Goals of care discussed with the patient's sister abad for over 23 minutes. Full code Critical care time spent excluding procedures: 52 minutes Plan discussed with Dr. Peace Plan discussed with: Patient, Other (Sister, RN ( Cat )) My Orders My Orders Orders - JACKY GARCIA RESIDENT Procedure Category Date Status Time Hydrocodone-Acet PHA 01/01/25 In Process 10/325mg Tab ([place] 11:00 Pt Request For Service PT 01/01/25 Logged 11:33 Ondansetron Hcl PHA 01/01/25 In Process (Zofran) 18:00 Prednisone Tablet PHA 01/02/25 In Process 10:00 Metoprolol Tartrate PHA 01/01/25 In Process Tablet (Lopressor Ta 22:00 Promethazine Plain PHA 01/01/25 In Process Syrup (Phenergan Plai 17:00 Respiratory Culture ANIYA 01/01/25 In Process W/ Gs 17:55 Complete Blood Count LAB 01/01/25 Transmitted 19:10 Dietary Evaluation Review Comments: 1. Pt is on fat energy support through Propofol of 860 kca, the TF needs to be a low fat, high proteiin formula. Suggest using Vital High Protein @45ml/hr, in 24 hr, pt will receive 1080 kca, 94 g protein, This formula will satisfy pt's protein neeeds at 79% and energy needs at 79% including the 860 kcal provided by Propofol running at 32.6ml/hr. Expected Outcomes/Goals: 1. Reassess protein and energy needs when pt is off vent, based on her true weight without fluid retention and possibably an improved kideny function, 2. Advance to CCHO-diet with updated protein and energy needs, when medically feasible providing that she passes a HASH SLINGER eval. Date of Service: Jan 01, 2025 Billing Provider: FRANNY PEACE MD Common Visit Codes: 89852-[id number] CARE 30-74 MIN JACKY GARCIA RESIDENT Jan 01, 2025 19:19 FRANNY PEACE MD January 02, 2025 12:01
[2025-01-01 20:37] LABS: Basophils # (auto) 0.1 10 ^3/uL (0-0.2); Eosinophils # (auto) 0 10 ^3/uL (0-0.8); Eosinophils % (auto) 0.3 % (0.0-7.0); Monocytes # (auto) 0.8 10 ^3/uL (0-1.3)
[2025-01-01 20:38] LABS: Basophils % (auto) 0.9 % (0.0-2.0); Lymphocytes % (auto) 11.1 % (10.0-50.0); Mean Corpuscular Hemoglobin 24.7 pg (28.0-32.0); Mean Corpuscular Hgb Conc. 31.7 g/dL (32.0-36.0); Mean Corpuscular Volume 77.8 fL (80.0-100.0); Monocytes % (auto) 8.4 % (0.0-12.0); Neutrophils # (auto) 7.3 10 ^3/uL (1.6-8.6); Neutrophils % (auto) 79.3 % (37.0-80.0); Nucleated Red Blood Cells % 0.1 %; Platelet Count (auto) 430 10^3/uL (140-450); Red Blood Cells 4.88 10^6/uL (4.0-5.20); Red Cell Distribution Width 18.5 % (11.8-14.3); White Blood Cell 9.3 10^3/uL (4.4-10.8)
[2025-01-01] MEDS: METOPROLOL TARTRATE 25 MG TAB PO SCH (21:27)
[2025-01-01] MEDS: APIXABAN 5 MG TAB PO SCH (21:27)
--- NOTE | 2025-01-01 22:42 | DVHPN2 ---
Progress Note - Dictate Date Seen: Jan 01, 2025 Medical Necessity Reason Pt with a Central, PICC or Fol: Yes The following are medically ne: Mayo Catheter Reason for mayo catheter: Strict I&O Subjective Patient was seen and evaluated in follow up in the ICU. Overnight the patient had epistaxis from her left nostril. Patient is on 3 LPM NC. CO2 34, BUN 48, TILE PRESSER 1.21. vital signs Vital Sign Date Time Temp Pulse Resp B/P (MAP) Pulse Ox O2 Delivery O2 Flow Rate FiO2 01/01/25 10:59 148/70 01/01/25 06:52 91 16 98 01/01/25 06:47 Nasal Cannula 3.0 01/01/25 06:47 32 01/01/25 00:00 98.9 98.9 Total Intake and Output 12/31/24 12/31/24 01/01/25 15:00 23:00 07:00 Intake Total 226 ml 712.333 ml 467 ml Output Total 1375 ml 2350 ml Balance 226 ml -662.667 ml -1883 ml medications Current Medications Medications Dose Ordered Sig/Julito Route Start Time Stop Time Status Last Admin Dose Admin Diagnostic Test (Pha) 1 strip Q6HR 12/15/24 12:00 01/01/25 06:33 1 STRIP Insulin Human Regular Q6HR SC 12/15/24 12:00 01/01/25 06:33 3 UNITS Dextrose 50 ml UD PRN IV 12/15/24 07:00 Enoxaparin Sodium 150 mg Q12HR SC 12/16/24 22:00 12/31/24 21:32 150 MG Ipratropium [place] 0.5 mg Q6HR NEB 12/17/24 00:00 01/01/25 06:47 0.5 MG Albuterol 2.5 mg Q6HR NEB 12/17/24 00:00 01/01/25 06:47 2.5 MG Pantoprazole Sodium 40 mg DAILY IV 12/17/24 10:00 01/01/25 10:57 40 MG Meropenem 50 ml @ 17 mls/hr Q8HR IV 12/24/24 00:30 01/01/25 05:45 17 MLS/HR Lactulose 30 ml Q8HR GT 12/25/24 14:00 12/29/24 06:10 30 ML Bumetanide 2 mg BIDD IV 12/25/24 18:46 01/01/25 05:55 2 MG Hydralazine HCl 50 mg TID PO 12/27/24 14:00 01/01/25 05:43 50 MG Metolazone 5 mg DAILY PO 12/28/24 06:00 01/01/25 10:59 5 MG Sodium Chloride 10 ml QSHIFT@10,22 IV 12/27/24 22:00 01/01/25 10:59 10 ML Acetaminophen 650 mg Q6HP PRN PO 12/28/24 14:45 Morphine Sulfate 2 mg Q4HR PRN IV 12/28/24 14:45 Spironolactone 25 mg Q12H PO 12/28/24 22:45 01/01/25 10:58 25 MG Ondansetron HCl 4 mg Q8HPRN PRN IV 12/29/24 08:30 01/01/25 10:56 4 MG Isosorbide Dinitrate 30 mg TID PO 12/30/24 14:00 01/01/25 05:44 30 MG Methylprednisolone Sodium Succinate 20 mg BID IV 12/30/24 22:00 01/01/25 10:58 20 MG Enteral Nutritional Formula 240 ml TIDWM PO 12/31/24 12:00 12/31/24 13:33 240 ML Potassium Chloride 100 ml @ 50 mls/hr Q2H IV 12/31/24 11:00 12/31/24 14:59 Cancel Vancomycin HCl 0 ml @ 0 mls/hr UD IV 12/31/24 18:15 Vancomycin HCl 350 ml @ 233.333 mls/hr Q16H IV 12/31/24 20:00 12/31/24 20:09 233.333 MLS/HR Acetaminophen/ Hydrocodone Bitart 1 tab Q4HP PRN PO 01/01/25 11:00 objective GENERAL: Alert and oriented x 3. No acute distress. Morbidly obese. EYES: PERRL, EOMI. Anicteric. HENT: Moist mucous membranes. LUNGS: Decreased all breath sounds. CARDIOVASCULAR: Regular rate and rhythm. ABDOMEN: Soft, nontender and nondistended. EXTREMITIES: No edema. SKIN: Warm, dry. laboratory and microbiology Laboratory Tests 01/01/25 03:14 Test 01/01/25 03:14 Range/Units Serum Glucose 201 H 74-106 mg/dL Problem List Accidental medication overdose. Acute encephalopathy. Acute respiratory failure. Respiratory acidosis. Right pleural effusion. Leukocytosis Chest pain. Bradycardia. CHF. CAD. Acute renal failure Hyperkalemia. UTI. DM type 2. Hypertension. Morbid obesity. History of CVA. Assessment/Plan Continued all current supportive medical care. Morphine and [place] for pain. Diuretics with Bumex. DVT and GI prophylactics. IV Hydralazine for SBP >150. IV antibiotics as ordered. Vasopressors for hemodynamic support. Additional plan as per the hospital course. Critical care time of 45 minutes provided to include time spent evaluation of patient at bedside, when appropriate patient/family education for diagnosis, treatment plan, review of pertinent medical information and discussion of care with specialty providers and PCP. Dietary Evaluation Review Comments: 1. Pt is on fat energy support through Propofol of 860 kca, the TF needs to be a low fat, high proteiin formula. Suggest using Vital High Protein @45ml/hr, in 24 hr, pt will receive 1080 kca, 94 g protein, This formula will satisfy pt's protein neeeds at 79% and energy needs at 79% including the 860 kcal provided by Propofol running at 32.6ml/hr. Expected Outcomes/Goals: 1. Reassess protein and energy needs when pt is off vent, based on her true weight without fluid retention and possibably an improved kideny function, 2. Advance to CCHO-diet with updated protein and energy needs, when medically feasible providing that she passes a RN NEUROLOGY eval. Plan discussed with: Patient FRANTZ HOSKINS MD Jan 01, 2025 12:05
[2025-01-02] VITALS (52 sets, daily range): BP systolic 104–160; BP diastolic 59–88; PULSE 76–91; RESP 7–23; TEMP 98.5–99.5; O2SAT 88–100
[2025-01-02] MEDS: HYDROcodone-ACET 10/325MG TAB PO PRN (00:56)
[2025-01-02 04:26] LABS: Anion Gap 9 (5-15); Basophils % (auto) 0.6 % (0.0-2.0); Eosinophils # (auto) 0.1 10 ^3/uL (0-0.8); Hematocrit 37.6 % (36.0-46.0); Hemoglobin 11.8 g/dL (12.2-16.2); Mean Corpuscular Hgb Conc. 31.4 g/dL (32.0-36.0); Neutrophils # (auto) 6.3 10 ^3/uL (1.6-8.6); Sodium 138 mmol/L (136-145)
[2025-01-02 04:27] LABS: Calcium 10.4 mg/dL (8.7-10.4)
[2025-01-02 04:28] LABS: Basophils # (auto) 0.1 10 ^3/uL (0-0.2); Eosinophils % (auto) 1.1 % (0.0-7.0); Lymphocytes # (auto) 1.4 10 ^3/uL (0.4-5.4); Lymphocytes % (auto) 15.5 % (10.0-50.0); Mean Corpuscular Hemoglobin 24.8 pg (28.0-32.0); Monocytes # (auto) 1.1 10 ^3/uL (0-1.3); Monocytes % (auto) 11.8 % (0.0-12.0); Nucleated Red Blood Cells % 0.2 %; Platelet Count (auto) 405 10^3/uL (140-450); Red Blood Cells 4.76 10^6/uL (4.0-5.20); Red Cell Distribution Width 19.2 % (11.8-14.3)
[2025-01-02 04:32] LABS: BUN/Creatinine Ratio 41.5 (10.0-20.0)
[2025-01-02 04:49] LABS: Blood Urea Nitrogen 56 mg/dL (9-23); Carbon Dioxide 37 mmol/L (20-31); Chloride 92 mmol/L (98-107); Glucose 154 mg/dL (74-106); Potassium 3.3 mmol/L (3.5-5.1)
--- NOTE | 2025-01-02 05:54 | DVH ---
EXAM: XR Chest, 1 View CLINICAL INDICATION: SOB, B/L rales TECHNIQUE: Frontal view of the chest. COMPARISON: XY CHEST XRAY 1 VIEW on DOS: 01/01/25, XY CHEST XRAY 1 VIEW on DOS: 12/31/24, XY CHEST PO RTABLE on DOS: 12/30/24, XY CHEST PORTABLE on DOS: 12/29/24, XY CHEST XRAY 1 VIEW on DOS: 12/28/24 FINDINGS: LUNGS AND PLEURAL SPACES: See below. HEART: Cardiomegaly with mild congestion. MEDIASTINUM: Unremarkable. Normal mediastinal contour. BONES/JOINTS: Unremarkable. No acute fracture. TUBES, LINES AND DEVICES: Distal tip of the enteric tube can not be clearly visualized. OTHER FINDINGS: . . . IMPRESSION: Cardiomegaly with mild congestion.
[2025-01-02] MEDS: POTASSIUM CHL 20MEQ/50ML 50 ML IV SCH (06:41)
[2025-01-02] MEDS: predniSONE 20 MG TAB PO SCH (10:44)
[2025-01-02] MEDS: ONDANSETRON HCL 4 MG/2 ML VIAL IV PRN (15:21)
--- NOTE | 2025-01-02 15:56 | DVH ---
CHEST RADIOGRAPH Indication: R/O ASPIRATION Technique: Single frontal view of the chest was obtained COMPARISON: XY CHEST XRAY 1 VIEW on DOS: 01/02/25, XY CHEST XRAY 1 VIEW on DOS: 01/01/25, XY CHEST XRAY 1 VIEW on DOS: 12/31/24, XY CHEST PORTABLE on DOS: 12/30/24, XY CHEST PORTABLE on DOS: 12/29/24 FINDINGS: Lines and Tubes: Enteric catheter tube tip appears to extend below the left hemidiaphragm. Lungs: Congestion. Pleura: No effusion. No pneumothorax. Cardiomediastinal contours: Unremarkable Bones: Unremarkable IMPRESSION: No significant interval change.
--- NOTE | 2025-01-02 20:13 | DVHPNRES ---
Progress Note Date Seen: January 02, 2025 Resident Creating Document: JACKY GARCIA RESIDENT Medical Necessity Reason Pt with a Central, PICC or Fol: Yes The following are medically ne: Mayo Catheter Reason for mayo catheter: Strict I&O Subjective Review of Systems Patient is a 59-year-old female with a past medical history of COPD, insulin dependent type 2 diabetes mellitus, congestive heart failure, coronary artery disease was brought to the hospital via EMS with altered mental status and bradycardia. As per patient's niece who is her take her lepidopterist, when she went to her room to give in the afternoon, she found with the patient to be confused and she checked her vitals reported low blood pressure and heart rate in 30s which she suspected might be because she took her blood pressure medications twice, following which she called EMS and the patient was brought to the hospital. She reports patient has been in and out of the hospital since the past 6 months for complains of shortness of breath. The last time she was hospitalized was in [facility] about 2.5-3 months ago following which she was sent to rehab facility and [facility] from where she got discharged about a week ago to home. Patient has been bed-bound since the last 8 years. At home patient has an oxygen concentrator and uses oxygen at 8-10 L per minute. Patient came in with altered mental status and ABG showed respiratory acidosis following which she was intubated and put on mechanical ventilation. Past medical history: COPD with 8-10 L oxygen per minute at home, insulin dependent type 2 diabetes mellitus, congestive heart failure, coronary artery disease, atrial fibrillation Past surgical history: Denies Social history: Patient is bed-bound, her niece as the lepidopterist, denies smoking, alcohol, any other drug use Home medications: Amiodarone 200 mg b.i.d., aspirin 81 mg daily, Jardiance 25 mg daily, fluticasone inhaler, Lasix 80 mg, metoprolol succinate 100 mg daily, losartan 100 mg daily, Eliquis 5 mg b.i.d. Review of systems Patient seen and examined at the bedside Patient extubated on 12/28 Alert and oriented x3 Patient diuresing well Reports of back pain On pureed diet, but the patient had episodes of vomiting with NG to suction, stopped the diet and started back on tube feedings Objective vital signs Vital Sign Date Time Temp Pulse Resp B/P (MAP) Pulse Ox O2 Delivery O2 Flow Rate FiO2 01/02/25 18:18 123/63 01/02/25 18:16 94 Nasal Cannula* 2 28 01/02/25 18:16 83 18 01/02/25 16:00 98.5 98.5 Total Intake and Output 01/01/25 01/01/25 01/02/25 15:00 23:00 07:00 Intake Total 500.666 ml 231 ml 539 ml Output Total 1450 ml 1500 ml Balance 500.666 ml -1219 ml -961 ml medications Current Medications Medications Dose Ordered Sig/Julito Route Start Time Stop Time Status Last Admin Dose Admin Diagnostic Test (Pha) 1 strip Q6HR 12/15/24 12:00 01/02/25 18:27 1 STRIP Insulin Human Regular Q6HR SC 12/15/24 12:00 01/02/25 12:12 4 UNITS Dextrose 50 ml UD PRN IV 12/15/24 07:00 Ipratropium [place] 0.5 mg Q6HR NEB 12/17/24 00:00 01/02/25 18:16 0.5 MG Albuterol 2.5 mg Q6HR NEB 12/17/24 00:00 01/02/25 18:16 2.5 MG Pantoprazole Sodium 40 mg DAILY IV 12/17/24 10:00 01/02/25 10:44 40 MG Meropenem 50 ml @ 17 mls/hr Q8HR IV 12/24/24 00:30 01/02/25 15:32 17 MLS/HR Hydralazine HCl 50 mg TID PO 12/27/24 14:00 01/02/25 15:34 50 MG Metolazone 5 mg DAILY PO 12/28/24 06:00 01/02/25 10:45 5 MG Sodium Chloride 10 ml QSHIFT@10,22 IV 12/27/24 22:00 01/02/25 10:46 10 ML Acetaminophen 650 mg Q6HP PRN PO 12/28/24 14:45 Isosorbide Dinitrate 30 mg TID PO 12/30/24 14:00 01/02/25 15:33 30 MG Potassium Chloride 100 ml @ 50 mls/hr Q2H IV 12/31/24 11:00 12/31/24 14:59 Cancel Acetaminophen/ Hydrocodone Bitart 1 tab Q4HP PRN PO 01/01/25 11:00 01/02/25 10:48 1 TAB Bumetanide 1 mg BIDD IV 01/01/25 18:00 01/02/25 18:18 1 MG Sodium Chloride 1 spr QID EACHNOSTRI 01/01/25 18:00 01/02/25 05:18 1 SPR Apixaban 5 mg BID PO 01/01/25 22:00 01/02/25 10:45 5 MG Ondansetron HCl 4 mg Q6HP PRN IV 01/01/25 18:00 01/02/25 15:21 4 MG Prednisone 40 mg DAILY PO 01/02/25 10:00 01/02/25 10:44 40 MG Metoprolol Tartrate 25 mg BID PO 01/01/25 22:00 01/02/25 10:45 25 MG Promethazine HCl 12.5 mg Q6HP PRN PO 01/01/25 17:00 Lactulose 30 ml DAILY GT 01/03/25 10:00 Spironolactone 25 mg BID@0000,1200 PO 01/03/25 00:00 Enteral Nutritional Formula 1,000 ml 20 ML/HR GT 01/02/25 18:15 Examination Constitutional: Patient morbidly obese, on NC, Gen - no pallor, no icterus, no cyanosis, no clubbing, no LAD, trace edema. Skin - Patients skin is warm and dry. HEENT - normocephalic, atraumatic, moist mucous membranes, bleeding seen in the nostrils Neck - full ROM, no LAD, JVD could not be assessed. Pulmonary - B/L diminished breath sounds with inspiratory crackles, no wheezing cardiovascular - variable S1,S2 heard, no added sounds, no murmurs heard. GI - obese, soft abdomen, large area of dark discoloration below the umbilicus Neurological - A/O X 3, following commands and able to move arms with strength 4/5 but weakness in legs, understandable speech, able to swallow laboratory and microbiology Laboratory Tests 01/02/25 03:30 Test 01/02/25 03:30 Range/Units Serum Glucose 154 H 74-106 mg/dL Microbiology Date/Time Source Procedure Growth Status 01/01/25 04:30 Sputum Expectorated Sputum Gram Stain - Final Resulted 01/01/25 04:30 Sputum Expectorated Sputum Respiratory Culture - Preliminary Resulted 12/31/24 18:50 Blood Blood Culture - Preliminary NO GROWTH AFTER 48 HOURS OF INCUBATION. Resulted 12/31/24 18:30 Urine - Mayo Port Urine Culture - Final Complete 12/15/24 11:44 Nose MRSA Screen - Final Methicillin Resistant S.aureus Complete Problem List/Assessment/Plan Problem List/Assessment/Plan Neurology Acute metabolic encephalopathy likely due to hypercapnia - extubated on 12/28 Respiratory Acute on chronic hypoxic/hypercarbic respiratory failure likely due to COPD/LAZARA/OHS On mechanical ventilation Severe sepsis with acute organ dysfucntion likely due to pneumonia Pneumonia likely due to Gram +/- bacteria Pulmonary edema - on mechanical ventilation - sputum cultures growing MRSA and pseudomonas, cleared up - repeat sputum cultures growing asia - IV meropenam - diuresis with bumex, metolazone, spironolactone - prednisone 40mg qd Cardiovascular Acute on chronic heart failure with preserved ejection fraction Severe right ventricular failure d/t ?underlying left heart failure ?LAZARA ?COPD , unknown chronicity, likely present on admission Pulmonary edema likely due to above Hypertensive heart disease with heart failure Bradycardia with AV block ?accidental medication overdose, junctional rhythm, resolved H/o atrial fibrillation - ECG showed bradycardia with prolonged [place] interval - Echo shows LVEF 60% with mod degree LV diastolic dysfucntion, mod dilated LA, moderate degree MR, mod dilated and hypokinetic RV associated Dyskinesis with major RV failure - on Bumex - hydralazine 50 mg t.i.d. and isosorbide dinitrate 30 mg t.i.d. - metolazone 2.5mg daily and spironolactone 25mg bid - metoprolol tartrate 25mg bid - eliquis 5mg bid Nephrology VIVI on CKD likely prerenal due to VMN - FENa < 1% - BUN and creatinine improving Endocrinology Insulin-dependent type 2 diabetes mellitus with hyperglycemia - on insulin sliding scale - on tube feedings Infectious disease Sepsis likely due to pneumonia/UTI UTI with long-term indwelling Mayo catheter, with ESBL E.coli present on admission MRSA nares positive - urine culture shows ESBL E.Coli - respiratory culture pending - blood cultures showed growth of staph epidermidis which could be a contaminant, repeated cultures - on IV Meropenam - mupirocin ointment - 12/31 cultures repeated and started on vancomycin 12/23- Patient in the morning was put on a CPAP trial which she tolerated well and was extubated and she was following commands and was put on BiPaP. Post extubation her CO2 level kept increasing and patient was more drowsy and somnolent and had to be reintubated. 12/26- patient failed CPAP trial 12/27- patient was put on CPAP but could not meet criteria and was put on ventilator again. we will continue to diurese her. PICC line to be placed today 12/28- patient extubated Diet: pureed diet PUD prophylaxis: Protonix DVT prophylaxis: eliquis right thigh PICC line inserted on 12/27 Mayo's catheter changed on 01/01 Goals of care discussed with the patient's friend gerald and son for over 21 minutes. Full code Critical care time spent excluding procedures: 63 minutes Plan discussed with Dr. Peace Plan discussed with: Patient, Son (Friend ( Gerald ), RN ( Tish), Other (friend ( Gerald ), RN ( Yamileth )) My Orders My Orders Orders - JACKY GARCIA RESIDENT Procedure Category Date Status Time Lactulose Oral PHA 01/03/25 In Process 10:00 Spironolactone PHA 01/03/25 In Process (Aldactone) 00:00 Dietary Evaluation Review Comments: 1. Pt is on fat energy support through Propofol of 860 kca, the TF needs to be a low fat, high proteiin formula. Suggest using Vital High Protein @45ml/hr, in 24 hr, pt will receive 1080 kca, 94 g protein, This formula will satisfy pt's protein neeeds at 79% and energy needs at 79% including the 860 kcal provided by Propofol running at 32.6ml/hr. Expected Outcomes/Goals: 1. Reassess protein and energy needs when pt is off vent, based on her true weight without fluid retention and possibably an improved kideny function, 2. [facility] with updated protein and energy needs, when medically feasible providing that she passes a JUMPBASTING COLLAR BASTER eval. Date of Service: January 02, 2025 Billing Provider: FRANNY PEACE MD Common Visit Codes: 66907-[id number] CARE 30-74 MIN JACKY GARCIA RESIDENT January 02, 2025 20:13 FRANNY PEACE MD January 05, 2025 12:16
[2025-01-02] MEDS: HYDROcodone-ACET 10/325MG TAB NG PRN (23:11)
[2025-01-02] MEDS: APIXABAN 5 MG TAB NG SCH (23:11)
[2025-01-02] MEDS: METOPROLOL TARTRATE 25 MG TAB NG SCH (23:13)
--- NOTE | 2025-01-02 23:22 | DVHPN2 ---
Progress Note - Dictate Date Seen: January 02, 2025 Medical Necessity Reason Pt with a Central, PICC or Fol: Yes The following are medically ne: Mayo Catheter Reason for mayo catheter: Strict I&O Subjective Patient was seen and evaluated in follow up in the ICU. Yesterday evening the patient had 1 episode of hematemesis. Patient complains of nausea with dry heaving. K 3.3, CO2 37, BUN 56, PRESS FEEDER 1.35. Chest x-ray shows cardiomegaly with mild congestion. vital signs Vital Sign Date Time Temp Pulse Resp B/P (MAP) Pulse Ox O2 Delivery O2 Flow Rate FiO2 01/02/25 11:34 89 13 94 01/02/25 10:45 146/64 01/02/25 09:57 1.0 93 01/02/25 06:16 Nasal Cannula 01/02/25 04:00 99.1 99.1 Total Intake and Output 01/01/25 01/01/25 01/02/25 15:00 23:00 07:00 Intake Total 500.666 ml 231 ml 514 ml Output Total 1450 ml 1500 ml Balance 500.666 ml -1219 ml -986 ml medications Current Medications Medications Dose Ordered Sig/Julito Route Start Time Stop Time Status Last Admin Dose Admin Diagnostic Test (Pha) 1 strip Q6HR 12/15/24 12:00 01/02/25 06:13 1 STRIP Insulin Human Regular Q6HR SC 12/15/24 12:00 01/02/25 06:13 3 UNITS Dextrose 50 ml UD PRN IV 12/15/24 07:00 Ipratropium [place] 0.5 mg Q6HR NEB 12/17/24 00:00 01/02/25 11:33 0.5 MG Albuterol 2.5 mg Q6HR NEB 12/17/24 00:00 01/02/25 11:33 2.5 MG Pantoprazole Sodium 40 mg DAILY IV 12/17/24 10:00 01/02/25 10:44 40 MG Meropenem 50 ml @ 17 mls/hr Q8HR IV 12/24/24 00:30 01/02/25 05:19 17 MLS/HR Hydralazine HCl 50 mg TID PO 12/27/24 14:00 01/02/25 05:19 50 MG Metolazone 5 mg DAILY PO 12/28/24 06:00 01/02/25 10:45 5 MG Sodium Chloride 10 ml QSHIFT@10,22 IV 12/27/24 22:00 01/02/25 10:46 10 ML Acetaminophen 650 mg Q6HP PRN PO 12/28/24 14:45 Spironolactone 25 mg Q12H PO 12/28/24 22:45 01/01/25 21:27 25 MG Isosorbide Dinitrate 30 mg TID PO 12/30/24 14:00 01/02/25 05:21 30 MG Enteral Nutritional Formula 240 ml TIDWM PO 12/31/24 12:00 01/02/25 08:52 240 ML Potassium Chloride 100 ml @ 50 mls/hr Q2H IV 12/31/24 11:00 12/31/24 14:59 Cancel Acetaminophen/ Hydrocodone Bitart 1 tab Q4HP PRN PO 01/01/25 11:00 01/02/25 10:48 1 TAB Bumetanide 1 mg BIDD IV 01/01/25 18:00 01/02/25 05:18 1 MG Sodium Chloride 1 spr QID EACHNOSTRI 01/01/25 18:00 01/02/25 05:18 1 SPR Apixaban 5 mg BID PO 01/01/25 22:00 01/02/25 10:45 5 MG Ondansetron HCl 4 mg Q6HP PRN IV 01/01/25 18:00 Prednisone 40 mg DAILY PO 01/02/25 10:00 01/02/25 10:44 40 MG Metoprolol Tartrate 25 mg BID PO 01/01/25 22:00 01/02/25 10:45 25 MG Promethazine HCl 12.5 mg Q6HP PRN PO 01/01/25 17:00 Lactulose 30 ml DAILY GT 01/03/25 10:00 objective GENERAL: Alert and oriented x 3. No acute distress. Morbidly obese. EYES: PERRL, EOMI. Anicteric. HENT: Moist mucous membranes. LUNGS: Decreased all breath sounds. CARDIOVASCULAR: Regular rate and rhythm. ABDOMEN: Soft, nontender and nondistended. EXTREMITIES: No edema. SKIN: Warm, dry. laboratory and microbiology Laboratory Tests 01/02/25 03:30 Test 01/02/25 03:30 Range/Units Serum Glucose 154 H 74-106 mg/dL Problem List Accidental medication overdose. Acute encephalopathy. Acute respiratory failure. Respiratory acidosis. Right pleural effusion. Leukocytosis Chest pain. Bradycardia. CHF. CAD. Acute renal failure Hyperkalemia. UTI. DM type 2. Hypertension. Morbid obesity. History of CVA. Assessment/Plan Continued all current supportive medical care. Morphine and Nahma for pain. Diuretics with Bumex. DVT and GI prophylactics. IV Hydralazine for SBP >150. IV antibiotics as ordered. Vasopressors for hemodynamic support. Additional plan as per the hospital course. Critical care time of 45 minutes provided to include time spent evaluation of patient at bedside, when appropriate patient/family education for diagnosis, treatment plan, review of pertinent medical information and discussion of care with specialty providers and PCP. Dietary Evaluation Review Comments: 1. Pt is on fat energy support through Propofol of 860 kca, the TF needs to be a low fat, high proteiin formula. Suggest using Vital High Protein @45ml/hr, in 24 hr, pt will receive 1080 kca, 94 g protein, This formula will satisfy pt's protein neeeds at 79% and energy needs at 79% including the 860 kcal provided by Propofol running at 32.6ml/hr. Expected Outcomes/Goals: 1. Reassess protein and energy needs when pt is off vent, based on her true weight without fluid retention and possibably an improved kideny function, 2. Advance to CCHO-diet with updated protein and energy needs, when medically feasible providing that she passes a SWIMMING POOL INSTALLER eval. Plan discussed with: Other FRANTZ HOSKINS MD January 02, 2025 12:11
[2025-01-02] MEDS: SPIRONOLACTONE 25 MG TAB PO SCH (23:36)
[2025-01-03] VITALS (14 sets, daily range): BP systolic 133–152; BP diastolic 62–73; PULSE 71–89; RESP 16–18; TEMP 97.5–99; O2SAT 93–100
[2025-01-03] MEDS: LACTULOSE 20Gm/30ML SOLN GT SCH (10:00)
[2025-01-03 10:05] LABS: Basophils # (auto) 0.1 10 ^3/uL (0-0.2); Eosinophils # (auto) 0.2 10 ^3/uL (0-0.8); Eosinophils % (auto) 1.6 % (0.0-7.0); Hemoglobin 12.1 g/dL (12.2-16.2); Lymphocytes # (auto) 1.7 10 ^3/uL (0.4-5.4); Monocytes # (auto) 1.1 10 ^3/uL (0-1.3); Neutrophils # (auto) 7.4 10 ^3/uL (1.6-8.6); Nucleated Red Blood Cells % 0.2 %
[2025-01-03 10:09] LABS: Basophils % (auto) 1.2 % (0.0-2.0); Hematocrit 38.1 % (36.0-46.0); Lymphocytes % (auto) 16.5 % (10.0-50.0); Mean Corpuscular Hemoglobin 24.9 pg (28.0-32.0); Mean Corpuscular Hgb Conc. 31.6 g/dL (32.0-36.0); Mean Corpuscular Volume 78.6 fL (80.0-100.0); Monocytes % (auto) 10.3 % (0.0-12.0); Neutrophils % (auto) 70.4 % (37.0-80.0); Platelet Count (auto) 555 10^3/uL (140-450); Red Blood Cells 4.85 10^6/uL (4.0-5.20); White Blood Cell 10.6 10^3/uL (4.4-10.8)
[2025-01-03 10:18] LABS: Anion Gap 9 (5-15); Sodium 138 mmol/L (136-145)
[2025-01-03 10:19] LABS: Calcium 9.8 mg/dL (8.7-10.4); Carbon Dioxide 35 mmol/L (20-31); Chloride 94 mmol/L (98-107); Potassium 3.5 mmol/L (3.5-5.1)
[2025-01-03 10:24] LABS: BUN/Creatinine Ratio 42.9 (10.0-20.0); Blood Urea Nitrogen 60 mg/dL (9-23); Glucose 164 mg/dL (74-106)
[2025-01-03] MEDS: metOLazone 5 MG TAB PO SCH (10:44)
--- NOTE | 2025-01-03 16:15 | DVHPNRES ---
Progress Note Date Seen: January 03, 2025 Resident Creating Document: JACKY GARCIA RESIDENT Medical Necessity Reason Pt with a Central, PICC or Fol: Yes The following are medically ne: Mayo Catheter Reason for mayo catheter: Strict I&O Subjective Review of Systems Patient is a 59-year-old female with a past medical history of COPD, insulin dependent type 2 diabetes mellitus, congestive heart failure, coronary artery disease was brought to the hospital via EMS with altered mental status and bradycardia. As per patient's niece who is her take her hand deicer element winder, when she went to her room to give in the afternoon, she found with the patient to be confused and she checked her vitals reported low blood pressure and heart rate in 30s which she suspected might be because she took her blood pressure medications twice, following which she called EMS and the patient was brought to the hospital. She reports patient has been in and out of the hospital since the past 6 months for complains of shortness of breath. The last time she was hospitalized was in [facility] about 2.5-3 months ago following which she was sent to rehab facility and [facility] from where she got discharged about a week ago to home. Patient has been bed-bound since the last 8 years. At home patient has an oxygen concentrator and uses oxygen at 8-10 L per minute. Patient came in with altered mental status and ABG showed respiratory acidosis following which she was intubated and put on mechanical ventilation. Past medical history: COPD with 8-10 L oxygen per minute at home, insulin dependent type 2 diabetes mellitus, congestive heart failure, coronary artery disease, atrial fibrillation Past surgical history: Denies Social history: Patient is bed-bound, her niece as the hand deicer element winder, denies smoking, alcohol, any other drug use Home medications: Amiodarone 200 mg b.i.d., aspirin 81 mg daily, Jardiance 25 mg daily, fluticasone inhaler, Lasix 80 mg, metoprolol succinate 100 mg daily, losartan 100 mg daily, Eliquis 5 mg b.i.d. Review of systems Patient seen and examined at the bedside Patient extubated on 12/28 Alert and oriented x3 Patient diuresing well Reports of back pain On pureed diet, but the patient had episodes of vomiting with NG to suction repeat swallow evaluation Objective vital signs Vital Sign Date Time Temp Pulse Resp B/P (MAP) Pulse Ox O2 Delivery O2 Flow Rate FiO2 01/03/25 14:10 152/73 01/03/25 13:00 99.0 79 18 93 99.0 01/03/25 12:03 Nasal Cannula* 2 28 Total Intake and Output 01/02/25 01/02/25 01/03/25 15:00 23:00 07:00 Intake Total 585 ml 651 ml 0 ml Output Total 1350 ml Balance 585 ml -699 ml 0 ml medications Current Medications Medications Dose Ordered Sig/Julito Route Start Time Stop Time Status Last Admin Dose Admin Diagnostic Test (Pha) 1 strip Q6HR 12/15/24 12:00 01/03/25 13:39 1 STRIP Insulin Human Regular Q6HR SC 12/15/24 12:00 01/03/25 06:30 2 UNITS Dextrose 50 ml UD PRN IV 12/15/24 07:00 Ipratropium [place] 0.5 mg Q6HR NEB 12/17/24 00:00 01/03/25 12:03 0.5 MG Albuterol 2.5 mg Q6HR NEB 12/17/24 00:00 01/03/25 12:03 2.5 MG Pantoprazole Sodium 40 mg DAILY IV 12/17/24 10:00 01/03/25 10:42 40 MG Meropenem 50 ml @ 17 mls/hr Q8HR IV 12/24/24 00:30 01/03/25 14:08 17 MLS/HR Hydralazine HCl 50 mg TID PO 12/27/24 14:00 01/03/25 14:10 50 MG Sodium Chloride 10 ml QSHIFT@10,22 IV 12/27/24 22:00 01/03/25 10:47 10 ML Acetaminophen 650 mg Q6HP PRN PO 12/28/24 14:45 Isosorbide Dinitrate 30 mg TID PO 12/30/24 14:00 01/03/25 14:09 30 MG Potassium Chloride 100 ml @ 50 mls/hr Q2H IV 12/31/24 11:00 12/31/24 14:59 Cancel Bumetanide 1 mg BIDD IV 01/01/25 18:00 01/03/25 06:10 1 MG Sodium Chloride 1 spr QID EACHNOSTRI 01/01/25 18:00 01/02/25 05:18 1 SPR Ondansetron HCl 4 mg Q6HP PRN IV 01/01/25 18:00 01/02/25 15:21 4 MG Prednisone 40 mg DAILY PO 01/02/25 10:00 01/03/25 10:46 40 MG Promethazine HCl 12.5 mg Q6HP PRN PO 01/01/25 17:00 Lactulose 30 ml DAILY GT 01/03/25 10:00 Spironolactone 25 mg BID@0000,1200 PO 01/03/25 00:00 01/03/25 13:26 25 MG Enteral Nutritional Formula 1,000 ml 20 ML/HR GT 01/02/25 18:15 Apixaban 5 mg BID NG 01/02/25 22:00 01/03/25 10:45 5 MG Acetaminophen/ Hydrocodone Bitart 1 tab Q4HP PRN NG 01/02/25 21:15 01/03/25 13:35 1 TAB Metoprolol Tartrate 25 mg BID NG 01/02/25 22:00 01/03/25 10:46 25 MG Metolazone 2.5 mg DAILY PO 01/03/25 10:00 01/03/25 10:44 2.5 MG Examination Constitutional: Patient morbidly obese, on NC, Gen - no pallor, no icterus, no cyanosis, no clubbing, no LAD, trace edema. Skin - Patients skin is warm and dry. HEENT - normocephalic, atraumatic, moist mucous membranes, bleeding seen in the nostrils Neck - full ROM, no LAD, JVD could not be assessed. Pulmonary - B/L diminished breath sounds with inspiratory crackles, no wheezing cardiovascular - variable S1,S2 heard, no added sounds, no murmurs heard. GI - obese, soft abdomen, large area of dark discoloration below the umbilicus Neurological - A/O X 3, following commands and able to move arms with strength 4/5 but weakness in legs, understandable speech, able to swallow laboratory and microbiology Laboratory Tests 01/03/25 09:45 Test 01/03/25 09:45 Range/Units Serum Glucose 164 H 74-106 mg/dL Microbiology Date/Time Source Procedure Growth Status 01/01/25 04:30 Sputum Expectorated Sputum Gram Stain - Final Resulted 01/01/25 04:30 Respiratory Culture - Preliminary Yeast, not [place] albicans Resulted 12/31/24 18:50 Blood Blood Culture - Preliminary NO GROWTH AFTER 48 HOURS OF INCUBATION. Resulted 12/31/24 18:30 Urine - Mayo Port Urine Culture - Final Complete 12/15/24 11:44 Nose MRSA Screen - Final Methicillin Resistant S.aureus Complete Problem List/Assessment/Plan Problem List/Assessment/Plan Neurology Acute metabolic encephalopathy likely due to hypercapnia - extubated on 12/28 Respiratory Acute on chronic hypoxic/hypercarbic respiratory failure likely due to COPD/LAZARA/OHS On mechanical ventilation Severe sepsis with acute organ dysfucntion likely due to pneumonia MRSA and pseudomonas pneumonia Pulmonary edema - on mechanical ventilation - sputum cultures growing MRSA and pseudomonas, cleared up - repeat sputum cultures growing asia - IV meropenam - diuresis with bumex, metolazone, spironolactone - prednisone 40mg qd Cardiovascular Acute on chronic heart failure with preserved ejection fraction Severe right ventricular failure with pulm HTN d/t underlying ?left heart failure ?LAZARA ?COPD , unknown chronicity, likely present on admission Pulmonary edema likely due to above Hypertensive heart disease with heart failure Bradycardia with AV block ?accidental medication overdose, junctional rhythm, resolved H/o atrial fibrillation - ECG showed bradycardia with prolonged [place] interval - Echo shows LVEF 60% with mod degree LV diastolic dysfucntion, mod dilated LA, moderate degree MR, mod dilated and hypokinetic RV associated Dyskinesis with major RV failure - on Bumex - hydralazine 50 mg t.i.d. and isosorbide dinitrate 30 mg t.i.d. - metolazone 2.5mg daily and spironolactone 25mg bid - metoprolol tartrate 25mg bid - eliquis 5mg bid Nephrology VIVI on CKD likely prerenal due to VMN - FENa < 1% - BUN and creatinine improving Endocrinology Insulin-dependent type 2 diabetes mellitus with hyperglycemia - on insulin sliding scale - on tube feedings Infectious disease Sepsis likely due to pneumonia/UTI UTI with long-term indwelling Mayo catheter, with ESBL E.coli present on admission MRSA nares positive - urine culture shows ESBL E.Coli - respiratory culture pending - blood cultures showed growth of staph epidermidis which could be a contaminant, repeated cultures - on IV Meropenam - mupirocin ointment - 04/29 cultures repeated and started on vancomycin 12/23- Patient in the morning was put on a CPAP trial which she tolerated well and was extubated and she was following commands and was put on BiPaP. Post extubation her CO2 level kept increasing and patient was more drowsy and somnolent and had to be reintubated. 12/26- patient failed CPAP trial 12/27- patient was put on CPAP but could not meet criteria and was put on ventilator again. we will continue to diurese her. PICC line to be placed today 12/28- patient extubated Diet: pureed diet PUD prophylaxis: Protonix DVT prophylaxis: eliquis right thigh PICC line inserted on 12/27 Mayo's catheter changed on 01/01 Goals of care discussed with the patient's family for over 21 minutes. Full code Critical care time spent excluding procedures: 45 minutes Plan discussed with Dr. Elliott Plan discussed with: Patient, Other (RN ( Price )) My Orders My Orders Orders - JACKY GARCIA RESIDENT Procedure Category Date Status Time Metolazone (Zaroxolyn) PHA 01/03/25 In Process 10:00 Communication Order ORDERS 01/02/25 Transmitted 21:41 * Swallow Request ST 01/03/25 Transmitted 16:10 Dietary Evaluation Review Comments: 1. Pt is on fat energy support through Propofol of 860 kca, the TF needs to be a low fat, high proteiin formula. Suggest using Vital High Protein @45ml/hr, in 24 hr, pt will receive 1080 kca, 94 g protein, This formula will satisfy pt's protein neeeds at 79% and energy needs at 79% including the 860 kcal provided by Propofol running at 32.6ml/hr. Expected Outcomes/Goals: 1. Reassess protein and energy needs when pt is off vent, based on her true weight without fluid retention and possibably an improved kideny function, 2. Advance to CCHO-diet with updated protein and energy needs, when medically feasible providing that she passes a HOT STICK MAN eval. JACKY GARCIA RESIDENT January 03, 2025 16:15
[2025-01-03] MEDS: Glucerna 1.2 Cal 1Liter BOTTLE GT SCH (18:14)
--- NOTE | 2025-01-03 19:06 | DVHPN2 ---
Progress Note - Dictate Date Seen: January 03, 2025 Medical Necessity Reason Pt with a Central, PICC or Fol: Yes The following are medically ne: Mayo Catheter Reason for mayo catheter: Strict I&O Subjective Patient was seen and evaluated in follow up. Patient was downgraded to a tele bed. Patient reports feeling emotional and anxious. Patient endorses having a sore throat. CO2 35, BUN 60, LIBRARY CIRCULATION DEPARTMENT CHIEF 1.40. Telemetry reviewed. vital signs Vital Sign Date Time Temp Pulse Resp B/P (MAP) Pulse Ox O2 Delivery O2 Flow Rate FiO2 01/03/25 10:46 75 147/69 01/03/25 08:30 97.7 16 97 97.7 01/03/25 06:43 Nasal Cannula* 2 28 Total Intake and Output 01/02/25 01/02/25 01/03/25 15:00 23:00 07:00 Intake Total 585 ml 651 ml 0 ml Output Total 1350 ml Balance 585 ml -699 ml 0 ml medications Current Medications Medications Dose Ordered Sig/Julito Route Start Time Stop Time Status Last Admin Dose Admin Diagnostic Test (Pha) 1 strip Q6HR 12/15/24 12:00 01/03/25 06:11 1 STRIP Insulin Human Regular Q6HR SC 12/15/24 12:00 01/03/25 06:30 2 UNITS Dextrose 50 ml UD PRN IV 12/15/24 07:00 Ipratropium [place] 0.5 mg Q6HR NEB 12/17/24 00:00 01/03/25 06:43 0.5 MG Albuterol 2.5 mg Q6HR NEB 12/17/24 00:00 01/03/25 06:43 2.5 MG Pantoprazole Sodium 40 mg DAILY IV 12/17/24 10:00 01/03/25 10:42 40 MG Meropenem 50 ml @ 17 mls/hr Q8HR IV 12/24/24 00:30 01/03/25 06:11 17 MLS/HR Hydralazine HCl 50 mg TID PO 12/27/24 14:00 01/03/25 06:10 50 MG Sodium Chloride 10 ml QSHIFT@10,22 IV 12/27/24 22:00 01/03/25 10:47 10 ML Acetaminophen 650 mg Q6HP PRN PO 12/28/24 14:45 Isosorbide Dinitrate 30 mg TID PO 12/30/24 14:00 01/03/25 06:10 30 MG Potassium Chloride 100 ml @ 50 mls/hr Q2H IV 12/31/24 11:00 12/31/24 14:59 Cancel Bumetanide 1 mg BIDD IV 01/01/25 18:00 01/03/25 06:10 1 MG Sodium Chloride 1 spr QID EACHNOSTRI 01/01/25 18:00 01/02/25 05:18 1 SPR Ondansetron HCl 4 mg Q6HP PRN IV 01/01/25 18:00 01/02/25 15:21 4 MG Prednisone 40 mg DAILY PO 01/02/25 10:00 01/03/25 10:46 40 MG Promethazine HCl 12.5 mg Q6HP PRN PO 01/01/25 17:00 Lactulose 30 ml DAILY GT 01/03/25 10:00 Spironolactone 25 mg BID@0000,1200 PO 01/03/25 00:00 Enteral Nutritional Formula 1,000 ml 20 ML/HR GT 01/02/25 18:15 Apixaban 5 mg BID NG 01/02/25 22:00 01/03/25 10:45 5 MG Acetaminophen/ Hydrocodone Bitart 1 tab Q4HP PRN NG 01/02/25 21:15 01/03/25 04:00 1 TAB Metoprolol Tartrate 25 mg BID NG 01/02/25 22:00 01/03/25 10:46 25 MG Metolazone 2.5 mg DAILY PO 01/03/25 10:00 01/03/25 10:44 2.5 MG objective GENERAL: Alert and oriented x 3. No acute distress. Morbidly obese. EYES: PERRL, EOMI. Anicteric. HENT: Moist mucous membranes. LUNGS: Decreased all breath sounds. CARDIOVASCULAR: Regular rate and rhythm. ABDOMEN: Soft, nontender and nondistended. EXTREMITIES: No edema. SKIN: Warm, dry. laboratory and microbiology Laboratory Tests 01/03/25 09:45 Test 01/03/25 09:45 Range/Units Serum Glucose 164 H 74-106 mg/dL Problem List Accidental medication overdose. Acute encephalopathy. Acute respiratory failure. Respiratory acidosis. Right pleural effusion. Leukocytosis Chest pain. Bradycardia. CHF. CAD. Acute renal failure Hyperkalemia. UTI. DM type 2. Hypertension. Morbid obesity. History of CVA. Assessment/Plan Continued all current supportive medical care. Morphine and [place] for pain. Diuretics with Bumex. DVT and GI prophylactics. IV Hydralazine for SBP >150. IV antibiotics as ordered. Vasopressors for hemodynamic support. Additional plan as per the hospital course. Dietary Evaluation Review Comments: 1. Pt is on fat energy support through Propofol of 860 kca, the TF needs to be a low fat, high proteiin formula. Suggest using Vital High Protein @45ml/hr, in 24 hr, pt will receive 1080 kca, 94 g protein, This formula will satisfy pt's protein neeeds at 79% and energy needs at 79% including the 860 kcal provided by Propofol running at 32.6ml/hr. Expected Outcomes/Goals: 1. Reassess protein and energy needs when pt is off vent, based on her true weight without fluid retention and possibably an improved kideny function, 2. Advance to CCHO-diet with updated protein and energy needs, when medically feasible providing that she passes a IT RISK AND ASSURANCE MANAGER eval. Plan discussed with: Patient FRANTZ HOSKINS MD January 03, 2025 12:02
[2025-01-04] VITALS (15 sets, daily range): BP systolic 97–131; BP diastolic 50–71; PULSE 78–96; RESP 16–20; TEMP 97.1–98.4; O2SAT 90–100
--- NOTE | 2025-01-04 13:32 | DVHPN2 ---
Reviewed: Care Plan, H&P Changes from previous H/P or p: No Changes General: Per HPI Objective Vitals Vital Signs Date Time Temp Pulse Resp B/P (MAP) Pulse Ox O2 Delivery O2 Flow Rate FiO2 01/04/25 12:43 62 103/46 01/04/25 12:41 98.2 20 95 98.2 01/04/25 09:05 Nasal Cannula 2.0 01/04/25 09:05 28 Intake/Output Intake and Output 01/04/25 07:00 Intake Total 50 ml Output Total 1300 ml Balance -1250 ml Intake Oral 0 ml IV Total 50 ml Output Urine Total 1300 ml Medications Current Medications Medications Dose Ordered Sig/Julito Route Start Time Stop Time Status Last Admin Dose Admin Diagnostic Test (Pha) 1 strip Q6HR 12/15/24 12:00 01/04/25 13:12 1 STRIP Insulin Human Regular Q6HR SC 12/15/24 12:00 01/04/25 13:08 4 UNITS Dextrose 50 ml UD PRN IV 12/15/24 07:00 Ipratropium [place] 0.5 mg Q6HR NEB 12/17/24 00:00 01/04/25 09:05 0.5 MG Albuterol 2.5 mg Q6HR NEB 12/17/24 00:00 01/04/25 09:05 2.5 MG Pantoprazole Sodium 40 mg DAILY IV 12/17/24 10:00 01/04/25 10:39 40 MG Hydralazine HCl 50 mg TID PO 12/27/24 14:00 01/04/25 05:59 50 MG Sodium Chloride 10 ml QSHIFT@10,22 IV 12/27/24 22:00 01/04/25 10:45 10 ML Acetaminophen 650 mg Q6HP PRN PO 12/28/24 14:45 Isosorbide Dinitrate 30 mg TID PO 12/30/24 14:00 01/04/25 05:59 30 MG Potassium Chloride 100 ml @ 50 mls/hr Q2H IV 12/31/24 11:00 12/31/24 14:59 Cancel Bumetanide 1 mg BIDD IV 01/01/25 18:00 01/04/25 05:59 1 MG Sodium Chloride 1 spr QID EACHNOSTRI 01/01/25 18:00 01/02/25 05:18 1 SPR Ondansetron HCl 4 mg Q6HP PRN IV 01/01/25 18:00 01/02/25 15:21 4 MG Prednisone 40 mg DAILY PO 01/02/25 10:00 01/04/25 10:40 40 MG Promethazine HCl 12.5 mg Q6HP PRN PO 01/01/25 17:00 Lactulose 30 ml DAILY GT 01/03/25 10:00 Spironolactone 25 mg BID@0000,1200 PO 01/03/25 00:00 01/04/25 12:54 25 MG Enteral Nutritional Formula 1,000 ml 20 ML/HR GT 01/02/25 18:15 01/03/25 18:14 1,000 ML Apixaban 5 mg BID NG 01/02/25 22:00 01/04/25 10:40 5 MG Acetaminophen/ Hydrocodone Bitart 1 tab Q4HP PRN NG 01/02/25 21:15 01/04/25 12:06 1 TAB Metoprolol Tartrate 25 mg BID NG 01/02/25 22:00 01/04/25 10:41 25 MG Metolazone 2.5 mg DAILY PO 01/03/25 10:00 01/04/25 10:43 2.5 MG Laboratory Results Laboratory Tests 01/03/25 09:45 Urinalysis Test 12/14/24 23:16 12/15/24 13:45 Urine WBC Clumps Present /hpf (None Seen) Urine Calcium Oxalate Crystals Few (None Seen) Urine Hyaline Casts Many /lpf (0 - 2) Urine Mucus Few (None Seen) Urine Color Light-yellow (Yellow) Urine Clarity Turbid (Clear) H Urine pH 6.5 (5.0-9.0) Urine Specific [place] 1.011 (1.001-1.035) Urine Protein Trace (Negative) H Urine Ketones Negative (Negative) Urine Blood Trace /uL (Negative) H Urine Nitrite Negative (Negative) Urine Bilirubin Negative (Negative) Urine Urobilinogen Normal mg/dL (Negative) Urine Leukocyte Esterase 3+ /uL (Negative) Urine RBC 4 /hpf (0 - 4) Urine Microscopic WBC 39 /HPF (0-5) H Urine Squamous Epithelial Cells Few /hpf (<5) Urine Bacteria Many /hpf (None Seen) H Urine Creatinine 51.30 mg/dL (30.0-125.0) Urine Protein/Creatinine Ratio 0.67 Urine Sodium 16 mmol/L (40-220) L Urine Glucose Normal mg/dL (Normal) Urine Total Protein 34.5 mg/dL (1-14) H Microbiology Microbiology Date/Time Source Procedure Growth Status 01/01/25 04:30 Sputum Expectorated Sputum Gram Stain - Final Complete 01/01/25 04:30 Respiratory Culture - Final Yeast, not [place] albicans Complete 12/31/24 18:50 Blood Blood Culture - Preliminary NO GROWTH AFTER 72 HOURS OF INCUBATION. Resulted 12/31/24 18:30 Urine - [place] Urine Culture - Final Complete 12/15/24 11:44 Nose MRSA Screen - Final Methicillin Resistant S.aureus Complete Labs and/or images reviewed: Labs reviewed by me, Image(s) reviewed by me Assessment/Plan Assessment/Plan Covering for resident physician Accidental medication overdose. Acute encephalopathy. Acute respiratory failure. Respiratory acidosis. Right pleural effusion. Leukocytosis Chest pain. Bradycardia. CHF. CAD. Acute renal failure Hyperkalemia. UTI. DM type 2. Hypertension. Morbid obesity. History of CVA. Continue current management including antibiotics Time spent 65 minutes Advanced care planning time 20 minutes Plan discussed with: Patient Date of Service: January 04, 2025 Billing Provider: LALITA DOZIER MD Common Visit Codes: [id number] CARE 30-74 MIN LALITA DOZIER MD January 04, 2025 13:32
--- NOTE | 2025-01-04 14:05 | DVHPN2 ---
Progress Note - Dictate Date Seen: January 04, 2025 Medical Necessity Reason Pt with a Central, PICC or Fol: Yes The following are medically ne: Mayo Catheter Reason for mayo catheter: Strict I&O vital signs Vital Sign Date Time Temp Pulse Resp B/P (MAP) Pulse Ox O2 Delivery O2 Flow Rate FiO2 01/04/25 13:46 97 Nasal Cannula 2.0 01/04/25 13:46 78 18 01/04/25 13:46 28 01/04/25 12:43 103/46 01/04/25 12:41 98.2 98.2 Total Intake and Output 01/03/25 01/03/25 01/04/25 15:00 23:00 07:00 Intake Total 50 ml 0 ml 0 ml Output Total 675 ml 625 ml Balance 50 ml -675 ml -625 ml medications Current Medications Medications Dose Ordered Sig/Julito Route Start Time Stop Time Status Last Admin Dose Admin Diagnostic Test (Pha) 1 strip Q6HR 12/15/24 12:00 01/04/25 13:12 1 STRIP Insulin Human Regular Q6HR SC 12/15/24 12:00 01/04/25 13:08 4 UNITS Dextrose 50 ml UD PRN IV 12/15/24 07:00 Ipratropium [place] 0.5 mg Q6HR NEB 12/17/24 00:00 01/04/25 13:46 0.5 MG Albuterol 2.5 mg Q6HR NEB 12/17/24 00:00 01/04/25 13:46 2.5 MG Pantoprazole Sodium 40 mg DAILY IV 12/17/24 10:00 01/04/25 10:39 40 MG Hydralazine HCl 50 mg TID PO 12/27/24 14:00 01/04/25 05:59 50 MG Sodium Chloride 10 ml QSHIFT@10,22 IV 12/27/24 22:00 01/04/25 10:45 10 ML Acetaminophen 650 mg Q6HP PRN PO 12/28/24 14:45 Isosorbide Dinitrate 30 mg TID PO 12/30/24 14:00 01/04/25 05:59 30 MG Potassium Chloride 100 ml @ 50 mls/hr Q2H IV 12/31/24 11:00 12/31/24 14:59 Cancel Bumetanide 1 mg BIDD IV 01/01/25 18:00 01/04/25 05:59 1 MG Sodium Chloride 1 spr QID EACHNOSTRI 01/01/25 18:00 01/02/25 05:18 1 SPR Ondansetron HCl 4 mg Q6HP PRN IV 01/01/25 18:00 01/02/25 15:21 4 MG Prednisone 40 mg DAILY PO 01/02/25 10:00 01/04/25 10:40 40 MG Promethazine HCl 12.5 mg Q6HP PRN PO 01/01/25 17:00 Lactulose 30 ml DAILY GT 01/03/25 10:00 Spironolactone 25 mg BID@0000,1200 PO 01/03/25 00:00 01/04/25 12:54 25 MG Enteral Nutritional Formula 1,000 ml 20 ML/HR GT 01/02/25 18:15 01/03/25 18:14 1,000 ML Apixaban 5 mg BID NG 01/02/25 22:00 01/04/25 10:40 5 MG Acetaminophen/ Hydrocodone Bitart 1 tab Q4HP PRN NG 01/02/25 21:15 01/04/25 12:06 1 TAB Metoprolol Tartrate 25 mg BID NG 01/02/25 22:00 01/04/25 10:41 25 MG Metolazone 2.5 mg DAILY PO 01/03/25 10:00 01/04/25 10:43 2.5 MG laboratory and microbiology Laboratory Tests 01/03/25 09:45 Test 01/03/25 09:45 Range/Units Serum Glucose 164 H 74-106 mg/dL Assessment/Plan lifts and cranes inspector rounds Impression obesity CHF re-intubated for respiratory failure atelectases Patient seen and examined events S/p extubation low oxygen requirements on 2 liters nasal cannula no distress s/p downgrade labs and CXR reviewed pt completed abx following commands management supportive care swallow eval 'prn bipap cont steroids diurese monitor BUN/Cr replace lytes gi and dvt proph Dietary Evaluation Review Comments: 1. Pt is on fat energy support through Propofol of 860 kca, the TF needs to be a low fat, high proteiin formula. Suggest using Vital High Protein @45ml/hr, in 24 hr, pt will receive 1080 kca, 94 g protein, This formula will satisfy pt's protein neeeds at 79% and energy needs at 79% including the 860 kcal provided by Propofol running at 32.6ml/hr. Expected Outcomes/Goals: 1. Reassess protein and energy needs when pt is off vent, based on her true weight without fluid retention and possibably an improved kideny function, 2. Advance to CCHO-diet with updated protein and energy needs, when medically feasible providing that she passes a PRODUCTION TROUBLESHOOTER eval. Plan discussed with: Patient IAN HASTINGS MD January 04, 2025 14:05
--- NOTE | 2025-01-04 15:29 | DVHPN2 ---
Progress Note - Dictate Date Seen: January 04, 2025 Medical Necessity Reason Pt with a Central, PICC or Fol: Yes The following are medically ne: Mayo Catheter Reason for mayo catheter: Strict I&O Subjective Patient was seen and evaluated in follow up. Patient complains of a sore throat. She is on 2 LPM NC. CBC and CMP are pending. Telemetry reviewed. vital signs Vital Sign Date Time Temp Pulse Resp B/P (MAP) Pulse Ox O2 Delivery O2 Flow Rate FiO2 01/04/25 10:43 112/57 01/04/25 10:41 92 01/04/25 09:05 98 Nasal Cannula 2.0 01/04/25 09:05 28 01/04/25 09:05 18 01/04/25 09:00 98.2 98.2 Total Intake and Output 01/03/25 01/03/25 01/04/25 15:00 23:00 07:00 Intake Total 50 ml 0 ml 0 ml Output Total 675 ml 625 ml Balance 50 ml -675 ml -625 ml medications Current Medications Medications Dose Ordered Sig/Julito Route Start Time Stop Time Status Last Admin Dose Admin Diagnostic Test (Pha) 1 strip Q6HR 12/15/24 12:00 01/04/25 05:59 1 STRIP Insulin Human Regular Q6HR SC 12/15/24 12:00 01/04/25 06:00 3 UNITS Dextrose 50 ml UD PRN IV 12/15/24 07:00 Ipratropium [place] 0.5 mg Q6HR NEB 12/17/24 00:00 01/04/25 09:05 0.5 MG Albuterol 2.5 mg Q6HR NEB 12/17/24 00:00 01/04/25 09:05 2.5 MG Pantoprazole Sodium 40 mg DAILY IV 12/17/24 10:00 01/04/25 10:39 40 MG Hydralazine HCl 50 mg TID PO 12/27/24 14:00 01/04/25 05:59 50 MG Sodium Chloride 10 ml QSHIFT@10 IV 12/27/24 22:00 01/04/25 10:45 10 ML Acetaminophen 650 mg Q6HP PRN PO 12/28/24 14:45 Isosorbide Dinitrate 30 mg TID PO 12/30/24 14:00 01/04/25 05:59 30 MG Potassium Chloride 100 ml @ 50 mls/hr Q2H IV 12/31/24 11:00 12/31/24 14:59 Cancel Bumetanide 1 mg BIDD IV 01/01/25 18:00 01/04/25 05:59 1 MG Sodium Chloride 1 spr QID EACHNOSTRI 01/01/25 18:00 01/02/25 05:18 1 SPR Ondansetron HCl 4 mg Q6HP PRN IV 01/01/25 18:00 01/02/25 15:21 4 MG Prednisone 40 mg DAILY PO 01/02/25 10:00 01/04/25 10:40 40 MG Promethazine HCl 12.5 mg Q6HP PRN PO 01/01/25 17:00 Lactulose 30 ml DAILY GT 01/03/25 10:00 Spironolactone 25 mg BID@0000,1200 PO 01/03/25 00:00 01/03/25 13:26 25 MG Enteral Nutritional Formula 1,000 ml 20 ML/HR GT 01/02/25 18:15 01/03/25 18:14 1,000 ML Apixaban 5 mg BID NG 01/02/25 22:00 01/04/25 10:40 5 MG Acetaminophen/ Hydrocodone Bitart 1 tab Q4HP PRN NG 01/02/25 21:15 01/03/25 23:21 1 TAB Metoprolol Tartrate 25 mg BID NG 01/02/25 22:00 01/04/25 10:41 25 MG Metolazone 2.5 mg DAILY PO 01/03/25 10:00 01/04/25 10:43 2.5 MG objective GENERAL: Alert and oriented x 3. No acute distress. Morbidly obese. EYES: PERRL, EOMI. Anicteric. HENT: Moist mucous membranes. LUNGS: Decreased all breath sounds. CARDIOVASCULAR: Regular rate and rhythm. ABDOMEN: Soft, nontender and nondistended. EXTREMITIES: No edema. SKIN: Warm, dry. laboratory and microbiology Laboratory Tests 01/03/25 09:45 Test 01/03/25 09:45 Range/Units Serum Glucose 164 H 74-106 mg/dL Problem List Accidental medication overdose. Acute encephalopathy. Acute respiratory failure. Respiratory acidosis. Right pleural effusion. Leukocytosis Chest pain. Bradycardia. CHF. CAD. Acute renal failure Hyperkalemia. UTI. DM type 2. Hypertension. Morbid obesity. History of CVA. Assessment/Plan Continued all current supportive medical care. Morphine and [place] for pain. Diuretics with Bumex. DVT and GI prophylactics. IV Hydralazine for SBP >150. IV antibiotics as ordered. Vasopressors for hemodynamic support. Additional plan as per the hospital course. Dietary Evaluation Review Comments: 1. Pt is on fat energy support through Propofol of 860 kca, the TF needs to be a low fat, high proteiin formula. Suggest using Vital High Protein @45ml/hr, in 24 hr, pt will receive 1080 kca, 94 g protein, This formula will satisfy pt's protein neeeds at 79% and energy needs at 79% including the 860 kcal provided by Propofol running at 32.6ml/hr. Expected Outcomes/Goals: 1. Reassess protein and energy needs when pt is off vent, based on her true weight without fluid retention and possibably an improved kideny function, 2. Advance to CCHO-diet with updated protein and energy needs, when medically feasible providing that she passes a PLANNING COORDINATOR eval. Plan discussed with: Patient FRANTZ HOSKINS MD January 04, 2025 11:54
[2025-01-04 15:43] LABS: Anion Gap 10 (5-15)
[2025-01-04 15:46] LABS: Calcium 10.8 mg/dL (8.7-10.4); Carbon Dioxide 33 mmol/L (20-31); Chloride 92 mmol/L (98-107); Sodium 135 mmol/L (136-145)
[2025-01-04 15:48] LABS: BUN/Creatinine Ratio 39.2 (10.0-20.0)
[2025-01-04 15:53] LABS: Blood Urea Nitrogen 67 mg/dL (9-23); Glucose 263 mg/dL (74-106)
[2025-01-04 15:57] LABS: Basophils # (auto) 0.1 10 ^3/uL (0-0.2); Basophils % (auto) 0.6 % (0.0-2.0); Eosinophils # (auto) 0 10 ^3/uL (0-0.8); Eosinophils % (auto) 0.1 % (0.0-7.0); Hematocrit 41.3 % (36.0-46.0); Lymphocytes # (auto) 0.6 10 ^3/uL (0.4-5.4); Lymphocytes % (auto) 4.8 % (10.0-50.0); Mean Corpuscular Hemoglobin 24.9 pg (28.0-32.0); Mean Corpuscular Hgb Conc. 31.4 g/dL (32.0-36.0); Mean Corpuscular Volume 79.2 fL (80.0-100.0); Monocytes # (auto) 0.3 10 ^3/uL (0-1.3); Monocytes % (auto) 2.3 % (0.0-12.0); Neutrophils % (auto) 92.2 % (37.0-80.0); Nucleated Red Blood Cells % 0.3 %; Platelet Count (auto) 456 10^3/uL (140-450); Red Blood Cells 5.22 10^6/uL (4.0-5.20)
[2025-01-05] VITALS (20 sets, daily range): BP systolic 98–150; BP diastolic 45–78; PULSE 72–91; RESP 16–20; TEMP 96.5–98.4; O2SAT 90–100
--- NOTE | 2025-01-05 09:08 | DVHPN2 ---
Reviewed: Care Plan, H&P Changes from previous H/P or p: No Changes General: Per HPI Objective Vitals Vital Signs Date Time Temp Pulse Resp B/P (MAP) Pulse Ox O2 Delivery O2 Flow Rate FiO2 01/05/25 08:46 147/89 01/05/25 08:45 85 01/05/25 06:03 18 100 01/05/25 05:58 Nasal Cannula 2.0 01/05/25 05:00 97.3 97.3 01/05/25 00:00 28 Intake/Output Intake and Output 01/05/25 07:00 Intake Total 390 ml Output Total 850 ml Balance -460 ml Intake Oral 150 ml Tube Feeding 240 ml Output Urine Total 850 ml Medications Current Medications Medications Dose Ordered Sig/Julito Route Start Time Stop Time Status Last Admin Dose Admin Diagnostic Test (Pha) 1 strip Q6HR 12/15/24 12:00 01/05/25 06:28 1 STRIP Insulin Human Regular Q6HR SC 12/15/24 12:00 01/05/25 06:28 4 UNITS Dextrose 50 ml UD PRN IV 12/15/24 07:00 Ipratropium [place] 0.5 mg Q6HR NEB 12/17/24 00:00 01/05/25 05:53 0.5 MG Albuterol 2.5 mg Q6HR NEB 12/17/24 00:00 01/05/25 05:53 2.5 MG Pantoprazole Sodium 40 mg DAILY IV 12/17/24 10:00 01/05/25 08:48 40 MG Hydralazine HCl 50 mg TID PO 12/27/24 14:00 01/05/25 06:29 50 MG Sodium Chloride 10 ml QSHIFT@10,22 IV 12/27/24 22:00 01/05/25 08:48 10 ML Acetaminophen 650 mg Q6HP PRN PO 12/28/24 14:45 Isosorbide Dinitrate 30 mg TID PO 12/30/24 14:00 01/05/25 06:34 30 MG Potassium Chloride 100 ml @ 50 mls/hr Q2H IV 12/31/24 11:00 12/31/24 14:59 Cancel Bumetanide 1 mg BIDD IV 01/01/25 18:00 01/05/25 06:30 1 MG Sodium Chloride 1 spr QID EACHNOSTRI 01/01/25 18:00 01/05/25 06:34 1 SPR Ondansetron HCl 4 mg Q6HP PRN IV 01/01/25 18:00 01/02/25 15:21 4 MG Prednisone 40 mg DAILY PO 01/02/25 10:00 01/05/25 08:44 40 MG Promethazine HCl 12.5 mg Q6HP PRN PO 01/01/25 17:00 Lactulose 30 ml DAILY GT 01/03/25 10:00 Spironolactone 25 mg BID@0000,1200 PO 01/03/25 00:00 01/05/25 00:24 25 MG Enteral Nutritional Formula 1,000 ml 20 ML/HR GT 01/02/25 18:15 01/04/25 18:51 1,000 ML Apixaban 5 mg BID NG 01/02/25 22:00 01/05/25 08:45 5 MG Acetaminophen/ Hydrocodone Bitart 1 tab Q4HP PRN NG 01/02/25 21:15 01/04/25 19:57 1 TAB Metoprolol Tartrate 25 mg BID NG 01/02/25 22:00 01/05/25 08:45 25 MG Metolazone 2.5 mg DAILY PO 01/03/25 10:00 01/05/25 08:46 2.5 MG Laboratory Results Laboratory Tests 01/04/25 15:23 Chemistry Test 01/04/25 15:23 Calcium Level 10.8 mg/dL (8.7-10.4) H Urinalysis Test 12/14/24 23:16 12/15/24 13:45 Urine WBC Clumps Present /hpf (None Seen) Urine Calcium Oxalate Crystals Few (None Seen) Urine Hyaline Casts Many /lpf (0 - 2) Urine Mucus Few (None Seen) Urine Color Light-yellow (Yellow) Urine Clarity Turbid (Clear) H Urine pH 6.5 (5.0-9.0) Urine Specific [place] 1.011 (1.001-1.035) Urine Protein Trace (Negative) H Urine Ketones Negative (Negative) Urine Blood Trace /uL (Negative) H Urine Nitrite Negative (Negative) Urine Bilirubin Negative (Negative) Urine Urobilinogen Normal mg/dL (Negative) Urine Leukocyte Esterase 3+ /uL (Negative) Urine RBC 4 /hpf (0 - 4) Urine Microscopic WBC 39 /HPF (0-5) H Urine Squamous Epithelial Cells Few /hpf (<5) Urine Bacteria Many /hpf (None Seen) H Urine Creatinine 51.30 mg/dL (30.0-125.0) Urine Protein/Creatinine Ratio 0.67 Urine Sodium 16 mmol/L (40-220) L Urine Glucose Normal mg/dL (Normal) Urine Total Protein 34.5 mg/dL (1-14) H Microbiology Microbiology Date/Time Source Procedure Growth Status 01/01/25 04:30 Sputum Expectorated Sputum Gram Stain - Final Complete 01/01/25 04:30 Respiratory Culture - Final Yeast, not Leticia albicans Complete 12/31/24 18:50 Blood Blood Culture - Preliminary NO GROWTH AFTER 72 HOURS OF INCUBATION. Resulted 12/31/24 18:30 Urine - [place] Urine Culture - Final Complete 12/15/24 11:44 Nose MRSA Screen - Final Methicillin Resistant S.aureus Complete Labs and/or images reviewed: Labs reviewed by me, Image(s) reviewed by me Assessment/Plan Assessment/Plan Covering for resident physician Accidental medication overdose. Acute encephalopathy. Acute respiratory failure. Respiratory acidosis. Right pleural effusion. Leukocytosis Chest pain. Bradycardia. CHF. CAD. Acute renal failure Hyperkalemia. UTI. DM type 2. Hypertension. Morbid obesity. History of CVA. Continue current management including antibiotics Time spent 55 minutes No new complaints Plan discussed with: Patient Date of Service: January 05, 2025 Billing Provider: LALITA DOZIER MD Common Visit Codes: [id number] INP/OBS CARE(HIGH) LALITA DOZIER MD January 05, 2025 09:08
--- NOTE | 2025-01-05 15:25 | DVHPN2 ---
Progress Note - Dictate Date Seen: January 05, 2025 Medical Necessity Reason Pt with a Central, PICC or Fol: Yes The following are medically ne: Mayo Catheter Reason for mayo catheter: Strict I&O vital signs Vital Sign Date Time Temp Pulse Resp B/P (MAP) Pulse Ox O2 Delivery O2 Flow Rate FiO2 01/05/25 14:54 95/52 01/05/25 13:26 98.1 72 18 92 98.1 01/05/25 10:00 2.0 01/05/25 10:00 Nasal Cannula* 28 Total Intake and Output 01/04/25 01/04/25 01/05/25 15:00 23:00 07:00 Intake Total 150 ml 240 ml Output Total 850 ml Balance -700 ml 240 ml medications Current Medications Medications Dose Ordered Sig/Julito Route Start Time Stop Time Status Last Admin Dose Admin Diagnostic Test (Pha) 1 strip Q6HR 12/15/24 12:00 01/05/25 12:26 1 STRIP Insulin Human Regular Q6HR SC 12/15/24 12:00 01/05/25 12:26 4 UNITS Dextrose 50 ml UD PRN IV 12/15/24 07:00 Ipratropium [place] 0.5 mg Q6HR NEB 12/17/24 00:00 01/05/25 11:13 0.5 MG Albuterol 2.5 mg Q6HR NEB 12/17/24 00:00 01/05/25 11:13 2.5 MG Pantoprazole Sodium 40 mg DAILY IV 12/17/24 10:00 01/05/25 08:48 40 MG Hydralazine HCl 50 mg TID PO 12/27/24 14:00 01/05/25 06:29 50 MG Sodium Chloride 10 ml QSHIFT@10,22 IV 12/27/24 22:00 01/05/25 08:48 10 ML Acetaminophen 650 mg Q6HP PRN PO 12/28/24 14:45 Isosorbide Dinitrate 30 mg TID PO 12/30/24 14:00 01/05/25 06:34 30 MG Potassium Chloride 100 ml @ 50 mls/hr Q2H IV 12/31/24 11:00 12/31/24 14:59 Cancel Bumetanide 1 mg BIDD IV 01/01/25 18:00 01/05/25 06:30 1 MG Sodium Chloride 1 spr QID EACHNOSTRI 01/01/25 18:00 01/05/25 06:34 1 SPR Ondansetron HCl 4 mg Q6HP PRN IV 01/01/25 18:00 01/02/25 15:21 4 MG Prednisone 40 mg DAILY PO 01/02/25 10:00 01/05/25 08:44 40 MG Promethazine HCl 12.5 mg Q6HP PRN PO 01/01/25 17:00 Lactulose 30 ml DAILY GT 01/03/25 10:00 Spironolactone 25 mg BID@0000,1200 PO 01/03/25 00:00 01/05/25 00:24 25 MG Enteral Nutritional Formula 1,000 ml 20 ML/HR GT 01/02/25 18:15 01/04/25 18:51 1,000 ML Apixaban 5 mg BID NG 01/02/25 22:00 01/05/25 08:45 5 MG Acetaminophen/ Hydrocodone Bitart 1 tab Q4HP PRN NG 01/02/25 21:15 01/05/25 11:25 1 TAB Metoprolol Tartrate 25 mg BID NG 01/02/25 22:00 01/05/25 08:45 25 MG Metolazone 2.5 mg DAILY PO 01/03/25 10:00 01/05/25 08:46 2.5 MG laboratory and microbiology Laboratory Tests 01/04/25 15:23 Test 01/04/25 15:23 Range/Units Serum Glucose 263 H 74-106 mg/dL Assessment/Plan 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 Pt is on fat energy support through Propofol of 860 kca, the TF needs to be a low fat, high proteiin formula. Suggest using Vital High Protein @45ml/hr, in 24 hr, pt will receive 1080 kca, 94 g protein, This formula will satisfy pt's protein neeeds at 79% and energy needs at 79% including the 860 kcal provided by Propofol running at 32.6ml/hr. Expected Outcomes/Goals: 1. Reassess protein and energy needs when pt is off vent, based on her true weight without fluid retention and possibably an improved kideny function, 2. Advance to CCHO-diet with updated protein and energy needs, when medically feasible providing that she passes a PATIENT CASE COORDINATOR eval. Plan discussed with: Patient IAN HASTINGS MD January 05, 2025 15:25
--- NOTE | 2025-01-05 22:26 | DVHPN2 ---
Progress Note - Dictate Date Seen: January 05, 2025 Medical Necessity Reason Pt with a Central, PICC or Fol: Yes The following are medically ne: Mayo Catheter Reason for mayo catheter: Strict I&O Subjective Patient was seen and evaluated in follow up. Patient is on 2 LPM NC. Patient is complaining of throat discomfort. GLUC 246. Patient reported having 1 episode of vomiting after drinking Ensure. Telemetry reviewed. vital signs Vital Sign Date Time Temp Pulse Resp B/P (MAP) Pulse Ox O2 Delivery O2 Flow Rate FiO2 01/05/25 11:23 88 18 97 01/05/25 11:00 110/50 01/05/25 10:00 2.0 01/05/25 10:00 Nasal Cannula* 28 01/05/25 09:00 98.4 98.4 Total Intake and Output 01/04/25 01/04/25 01/05/25 15:00 23:00 07:00 Intake Total 150 ml 240 ml Output Total 850 ml Balance -700 ml 240 ml medications Current Medications Medications Dose Ordered Sig/Julito Route Start Time Stop Time Status Last Admin Dose Admin Diagnostic Test (Pha) 1 strip Q6HR 12/15/24 12:00 01/05/25 12:26 1 STRIP Insulin Human Regular Q6HR SC 12/15/24 12:00 01/05/25 12:26 4 UNITS Dextrose 50 ml UD PRN IV 12/15/24 07:00 Ipratropium [place] 0.5 mg Q6HR NEB 12/17/24 00:00 01/05/25 11:13 0.5 MG Albuterol 2.5 mg Q6HR NEB 12/17/24 00:00 01/05/25 11:13 2.5 MG Pantoprazole Sodium 40 mg DAILY IV 12/17/24 10:00 01/05/25 08:48 40 MG Hydralazine HCl 50 mg TID PO 12/27/24 14:00 01/05/25 06:29 50 MG Sodium Chloride 10 ml QSHIFT@10,22 IV 12/27/24 22:00 01/05/25 08:48 10 ML Acetaminophen 650 mg Q6HP PRN PO 12/28/24 14:45 Isosorbide Dinitrate 30 mg TID PO 12/30/24 14:00 01/05/25 06:34 30 MG Potassium Chloride 100 ml @ 50 mls/hr Q2H IV 12/31/24 11:00 12/31/24 14:59 Cancel Bumetanide 1 mg BIDD IV 01/01/25 18:00 01/05/25 06:30 1 MG Sodium Chloride 1 spr QID EACHNOSTRI 01/01/25 18:00 01/05/25 06:34 1 SPR Ondansetron HCl 4 mg Q6HP PRN IV 01/01/25 18:00 01/02/25 15:21 4 MG Prednisone 40 mg DAILY PO 01/02/25 10:00 01/05/25 08:44 40 MG Promethazine HCl 12.5 mg Q6HP PRN PO 01/01/25 17:00 Lactulose 30 ml DAILY GT 01/03/25 10:00 Spironolactone 25 mg BID@0000,1200 PO 01/03/25 00:00 01/05/25 00:24 25 MG Enteral Nutritional Formula 1,000 ml 20 ML/HR GT 01/02/25 18:15 01/04/25 18:51 1,000 ML Apixaban 5 mg BID NG 01/02/25 22:00 01/05/25 08:45 5 MG Acetaminophen/ Hydrocodone Bitart 1 tab Q4HP PRN NG 01/02/25 21:15 01/05/25 11:25 1 TAB Metoprolol Tartrate 25 mg BID NG 01/02/25 22:00 01/05/25 08:45 25 MG Metolazone 2.5 mg DAILY PO 01/03/25 10:00 01/05/25 08:46 2.5 MG objective GENERAL: Alert and oriented x 3. No acute distress. Morbidly obese. EYES: PERRL, EOMI. Anicteric. HENT: Moist mucous membranes. LUNGS: Decreased all breath sounds. CARDIOVASCULAR: Regular rate and rhythm. ABDOMEN: Soft, nontender and nondistended. EXTREMITIES: No edema. SKIN: Warm, dry. laboratory and microbiology Laboratory Tests 01/04/25 15:23 Test 01/04/25 15:23 Range/Units Serum Glucose 263 H 74-106 mg/dL Problem List Accidental medication overdose. Acute encephalopathy. Acute respiratory failure. Respiratory acidosis. Right pleural effusion. Leukocytosis Chest pain. Bradycardia. CHF. CAD. Acute renal failure Hyperkalemia. UTI. DM type 2. Hypertension. Morbid obesity. History of CVA. Assessment/Plan Continued all current supportive medical care. Morphine and [place] for pain. Eliquis. Diuretics with Bumex. IV Hydralazine for SBP >150. Metoprolol. GI prophylactics. Additional plan as per the hospital course. Dietary Evaluation Review Comments: 1. Pt is on fat energy support through Propofol of 860 kca, the TF needs to be a low fat, high proteiin formula. Suggest using Vital High Protein @45ml/hr, in 24 hr, pt will receive 1080 kca, 94 g protein, This formula will satisfy pt's protein neeeds at 79% and energy needs at 79% including the 860 kcal provided by Propofol running at 32.6ml/hr. Expected Outcomes/Goals: 1. Reassess protein and energy needs when pt is off vent, based on her true weight without fluid retention and possibably an improved kideny function, 2. Advance to CCHO-diet with updated protein and energy needs, when medically feasible providing that she passes a CARD DOFFER eval. Plan discussed with: Patient FRANTZ HOSKINS MD January 05, 2025 13:24
[2025-01-06] VITALS (18 sets, daily range): BP systolic 111–139; BP diastolic 60–69; PULSE 71–87; RESP 16–18; TEMP 97.4–98.2; O2SAT 90–100
[2025-01-06 09:54] LABS: Base Excess 11.6 mmol/L (-2.0-3.0)
[2025-01-06 10:28] LABS: Monocytes # (auto) 1.2 10 ^3/uL (0-1.3)
[2025-01-06 10:30] LABS: Basophils # (auto) 0.1 10 ^3/uL (0-0.2); Basophils % (auto) 0.7 % (0.0-2.0); Eosinophils # (auto) 0.2 10 ^3/uL (0-0.8); Eosinophils % (auto) 1.1 % (0.0-7.0); Hematocrit 39.2 % (36.0-46.0); Hemoglobin 12.3 g/dL (12.2-16.2); Lymphocytes # (auto) 1.2 10 ^3/uL (0.4-5.4); Lymphocytes % (auto) 8.7 % (10.0-50.0); Mean Corpuscular Hemoglobin 24.6 pg (28.0-32.0); Mean Corpuscular Hgb Conc. 31.4 g/dL (32.0-36.0); Mean Corpuscular Volume 78.2 fL (80.0-100.0); Monocytes % (auto) 8.8 % (0.0-12.0); Neutrophils # (auto) 11.1 10 ^3/uL (1.6-8.6); Neutrophils % (auto) 80.7 % (37.0-80.0); Nucleated Red Blood Cells % 0.1 %; Platelet Count (auto) 468 10^3/uL (140-450); Red Cell Distribution Width 19.6 % (11.8-14.3); White Blood Cell 13.7 10^3/uL (4.4-10.8)
[2025-01-06 10:50] LABS: Alanine Aminotransferase 22 U/L (7-40); Albumin 4.3 g/dL (3.2-4.8); Alkaline Phosphatase 63 U/L (46-116); Anion Gap 11 (5-15); Aspartate Aminotransferase 17 U/L (13-40); Bilirubin, Total 0.5 mg/dL (0.2-1.0); Calcium 10.7 mg/dL (8.7-10.4); Carbon Dioxide 35 mmol/L (20-31); Chloride 88 mmol/L (98-107); Glucose 208 mg/dL (74-106); Potassium 4.2 mmol/L (3.5-5.1); Sodium 134 mmol/L (136-145)
[2025-01-06 10:54] LABS: Blood Urea Nitrogen 89 mg/dL (9-23)
[2025-01-06] MEDS: METOPROLOL TARTRATE 25 MG TAB PO SCH (12:35)
[2025-01-06] MEDS: APIXABAN 5 MG TAB PO SCH (12:38)
[2025-01-06] MEDS: LACTULOSE 20Gm/30ML SOLN PO SCH (12:45)
--- NOTE | 2025-01-06 19:54 | DVHPNRES ---
Progress Note Date Seen: January 06, 2025 Resident Creating Document: JEREMY JI RESIDENT Medical Necessity Reason Pt with a Central, PICC or Fol: Yes The following are medically ne: Mayo Catheter Reason for mayo catheter: Strict I&O Subjective Review of Systems Patient is a 59-year-old female with a past medical history of COPD, insulin dependent type 2 diabetes mellitus, congestive heart failure, coronary artery disease was brought to the hospital via EMS with altered mental status and bradycardia. As per patient's niece who is her take her bundles hanger, when she went to her room to give in the afternoon, she found with the patient to be confused and she checked her vitals reported low blood pressure and heart rate in 30s which she suspected might be because she took her blood pressure medications twice, following which she called EMS and the patient was brought to the hospital. She reports patient has been in and out of the hospital since the past 6 months for complains of shortness of breath. The last time she was hospitalized was in [facility] about 2.5-3 months ago following which she was sent to rehab facility and [facility] from where she got discharged about a week ago to home. Patient has been bed-bound since the last 8 years. At home patient has an oxygen concentrator and uses oxygen at 8-10 L per minute. Patient came in with altered mental status and ABG showed respiratory acidosis following which she was intubated and put on mechanical ventilation. Past medical history: COPD with 8-10 L oxygen per minute at home, insulin dependent type 2 diabetes mellitus, congestive heart failure, coronary artery disease, atrial fibrillation Past surgical history: Denies Social history: Patient is bed-bound, her niece as the bundles hanger, denies smoking, alcohol, any other drug use Home medications: Amiodarone 200 mg b.i.d., aspirin 81 mg daily, Jardiance 25 mg daily, fluticasone inhaler, Lasix 80 mg, metoprolol succinate 100 mg daily, losartan 100 mg daily, Eliquis 5 mg b.i.d. Patient seen and examined at the bedside Patient extubated on 12/28 Alert and oriented x3 Patient diuresing well Reports of back pain On pureed diet Objective vital signs Vital Sign Date Time Temp Pulse Resp B/P (MAP) Pulse Ox O2 Delivery O2 Flow Rate FiO2 01/06/25 18:33 87 18 97 01/06/25 18:27 Nasal Cannula* 2 28 01/06/25 17:08 97.4 123/65 (84) 97.4 Total Intake and Output 01/05/25 01/05/25 01/06/25 15:00 23:00 07:00 Intake Total 0 ml 0 ml Balance 0 ml 0 ml medications Current Medications Medications Dose Ordered Sig/Julito Route Start Time Stop Time Status Last Admin Dose Admin Diagnostic Test (Pha) 1 strip Q6HR 12/15/24 12:00 01/06/25 18:05 1 STRIP Insulin Human Regular Q6HR SC 12/15/24 12:00 01/06/25 18:16 6 UNITS Dextrose 50 ml UD PRN IV 12/15/24 07:00 Ipratropium [place] 0.5 mg Q6HR NEB 12/17/24 00:00 01/06/25 18:27 0.5 MG Albuterol 2.5 mg Q6HR NEB 12/17/24 00:00 01/06/25 18:27 2.5 MG Pantoprazole Sodium 40 mg DAILY IV 12/17/24 10:00 01/06/25 12:32 40 MG Hydralazine HCl 50 mg TID PO 12/27/24 14:00 01/06/25 14:22 50 MG Sodium Chloride 10 ml QSHIFT@10,22 IV 12/27/24 22:00 01/06/25 11:40 10 ML Acetaminophen 650 mg Q6HP PRN PO 12/28/24 14:45 Isosorbide Dinitrate 30 mg TID PO 12/30/24 14:00 01/06/25 14:22 30 MG Potassium Chloride 100 ml @ 50 mls/hr Q2H IV 12/31/24 11:00 12/31/24 14:59 Cancel Sodium Chloride 1 spr QID EACHNOSTRI 01/01/25 18:00 01/06/25 17:48 1 SPR Ondansetron HCl 4 mg Q6HP PRN IV 01/01/25 18:00 01/02/25 15:21 4 MG Promethazine HCl 12.5 mg Q6HP PRN PO 01/01/25 17:00 Spironolactone 25 mg BID@0000,1200 PO 01/03/25 00:00 01/06/25 12:36 25 MG Acetaminophen/ Hydrocodone Bitart 1 tab Q4HP PRN NG 01/02/25 21:15 01/06/25 12:53 1 TAB Apixaban 5 mg BID PO 01/06/25 10:45 01/06/25 12:38 5 MG Lactulose 30 ml DAILY PO 01/06/25 10:45 Metoprolol Tartrate 25 mg BID PO 01/06/25 10:45 01/06/25 12:35 25 MG Insulin Glargine 10 units HS SC 01/06/25 22:00 Prednisone 30 mg DAILY PO 01/07/25 10:00 Bumetanide 1 mg DAILY IV 01/07/25 10:00 Examination Examination Constitutional: Patient morbidly obese, on NC, Gen - no pallor, no icterus, no cyanosis, no clubbing, no LAD, trace edema. Skin - Patients skin is warm and dry. HEENT - normocephalic, atraumatic, moist mucous membranes, bleeding seen in the nostrils Neck - full ROM, no LAD, JVD could not be assessed. Pulmonary - B/L diminished breath sounds with inspiratory crackles, no wheezing cardiovascular - variable S1,S2 heard, no added sounds, no murmurs heard. GI - obese, soft abdomen, large area of dark discoloration below the umbilicus Neurological - A/O X 3, following commands and able to move arms with strength 4/5 but weakness in legs, understandable speech, able to swallow laboratory and microbiology Laboratory Tests 01/06/25 10:20 Test 01/06/25 10:20 Range/Units Serum Glucose 208 H 74-106 mg/dL Microbiology Date/Time Source Procedure Growth Status 01/01/25 04:30 Sputum Expectorated Sputum Gram Stain - Final Complete 01/01/25 04:30 Respiratory Culture - Final Yeast, not [place] albicans Complete 12/31/24 18:50 Blood Blood Culture - Final NO GROWTH AFTER 5 DAYS OF INCUBATION. Complete 12/31/24 18:30 Urine - Mayo [place] Urine Culture - Final Complete 12/15/24 11:44 Nose MRSA Screen - Final Methicillin Resistant S.aureus Complete Labs and/or images reviewed: Labs reviewed by me, Image(s) reviewed by me Problem List/Assessment/Plan Problem List/Assessment/Plan Assessment and plan: Neurology Acute metabolic encephalopathy likely due to hypercapnia - extubated on 12/28 Respiratory Acute on chronic hypoxic/hypercarbic respiratory failure likely due to COPD/LAZARA/OHS On mechanical ventilation Severe sepsis with acute organ dysfucntion likely due to pneumonia MRSA and pseudomonas pneumonia Pulmonary edema - on mechanical ventilation - sputum cultures growing MRSA and pseudomonas, cleared up - repeat sputum cultures growing asia - diuresis with bumex and spironolactone - prednisone 40mg qd Cardiovascular Acute on chronic heart failure with preserved ejection fraction Severe right ventricular failure with pulm HTN d/t underlying ?left heart failure ?LAZARA ?COPD , unknown chronicity, likely present on admission Pulmonary edema likely due to above Hypertensive heart disease with heart failure Bradycardia with AV block ?accidental medication overdose, junctional rhythm, resolved H/o atrial fibrillation - ECG showed bradycardia with prolonged IA interval - Echo shows LVEF 60% with mod degree LV diastolic dysfucntion, mod dilated LA, moderate degree MR, mod dilated and hypokinetic RV associated Dyskinesis with major RV failure - on Bumex - hydralazine 50 mg t.i.d. and isosorbide dinitrate 30 mg t.i.d. - spironolactone 25mg bid - metoprolol tartrate 25mg bid - eliquis 5mg bid Nephrology VIVI on CKD likely prerenal due to VMN - FENa < 1% - BUN and creatinine improving Endocrinology Insulin-dependent type 2 diabetes mellitus with hyperglycemia - on insulin sliding scale - on pureed diet Infectious disease Sepsis likely due to pneumonia/UTI UTI with long-term indwelling Mayo catheter, with ESBL E.coli present on admission MRSA nares positive - urine culture showed ESBL E.Coli - respiratory culture showed yeast - blood cultures showed growth of staph epidermidis which could be a contaminant, repeat culture negative - mupirocin ointment Diet: pureed diet PUD prophylaxis: Protonix DVT prophylaxis: eliquis right thigh PICC line inserted on 12/27 Mayo's catheter changed on 01/01 Goals of care discussed with the patient's family for over 21 minutes. Full code Plan discussed with Dr. Peace Plan discussed with: Patient, Other My Orders My Orders Orders - JEREMY JI RESIDENT Procedure Category Date Status Time Pt Request For Service PT 01/06/25 Logged 12:57 Insulin Lantus PHA 01/06/25 In Process (Glargine) (Lantus) 22:00 Dietary Evaluation Review Comments: 1. Pt is on fat energy support through Propofol of 860 kca, the TF needs to be a low fat, high proteiin formula. Suggest using Vital High Protein @45ml/hr, in 24 hr, pt will receive 1080 kca, 94 g protein, This formula will satisfy pt's protein neeeds at 79% and energy needs at 79% including the 860 kcal provided by Propofol running at 32.6ml/hr. Expected Outcomes/Goals: 1. Reassess protein and energy needs when pt is off vent, based on her true weight without fluid retention and possibably an improved kideny function, 2. [facility] with updated protein and energy needs, when medically feasible providing that she passes a CENTRIFUGE SEPARATOR OPERATOR eval. Date of Service: January 06, 2025 Billing Provider: FRANNY PEACE MD Common Visit Codes: [id number] INP/OBS CARE(HIGH) Secondary Visit Codes: [id number] CARE PLAN 30 MINUTES JEREMY JI RESIDENT January 06, 2025 19:54 FRANNY PEACE MD January 07, 2025 15:25
[2025-01-06] MEDS: INSULIN LANTUS (GLARGINE) 1 /0.01ml (100units/ml) SC SCH (21:24)
--- NOTE | 2025-01-06 22:30 | DVHPN2 ---
Progress Note - Dictate Date Seen: January 06, 2025 Medical Necessity Reason Pt with a Central, PICC or Fol: Yes The following are medically ne: Mayo Catheter Reason for mayo catheter: Strict I&O Subjective Patient was seen and evaluated in follow up. Patient is on 2 LPM NC. Patient denies any pain or discomfort. Patient is diuresing well. WBC 13.7, CO2 35, BUN 89, Attacher 1.68. Telemetry reviewed. vital signs Vital Sign Date Time Temp Pulse Resp B/P (MAP) Pulse Ox O2 Delivery O2 Flow Rate FiO2 01/06/25 21:15 72 128/65 01/06/25 18:33 18 97 01/06/25 18:27 Nasal Cannula* 2 28 01/06/25 17:08 97.4 97.4 Total Intake and Output 01/05/25 01/05/25 01/06/25 15:00 23:00 07:00 Intake Total 0 ml 0 ml Balance 0 ml 0 ml medications Current Medications Medications Dose Ordered Sig/Julito Route Start Time Stop Time Status Last Admin Dose Admin Diagnostic Test (Pha) 1 strip Q6HR 12/15/24 12:00 01/06/25 18:05 1 STRIP Insulin Human Regular Q6HR SC 12/15/24 12:00 01/06/25 18:16 6 UNITS Dextrose 50 ml UD PRN IV 12/15/24 07:00 Ipratropium [place] 0.5 mg Q6HR NEB 12/17/24 00:00 01/06/25 18:27 0.5 MG Albuterol 2.5 mg Q6HR NEB 12/17/24 00:00 01/06/25 18:27 2.5 MG Pantoprazole Sodium 40 mg DAILY IV 12/17/24 10:00 01/06/25 12:32 40 MG Hydralazine HCl 50 mg TID PO 12/27/24 14:00 01/06/25 21:14 50 MG Sodium Chloride 10 ml QSHIFT@10,22 IV 12/27/24 22:00 01/06/25 21:15 10 ML Acetaminophen 650 mg Q6HP PRN PO 12/28/24 14:45 Isosorbide Dinitrate 30 mg TID PO 12/30/24 14:00 01/06/25 21:14 30 MG Potassium Chloride 100 ml @ 50 mls/hr Q2H IV 12/31/24 11:00 12/31/24 14:59 Cancel Sodium Chloride 1 spr QID EACHNOSTRI 01/01/25 18:00 01/06/25 21:15 1 SPR Ondansetron HCl 4 mg Q6HP PRN IV 01/01/25 18:00 01/02/25 15:21 4 MG Promethazine HCl 12.5 mg Q6HP PRN PO 01/01/25 17:00 Spironolactone 25 mg BID@0000,1200 PO 01/03/25 00:00 01/06/25 12:36 25 MG Acetaminophen/ Hydrocodone Bitart 1 tab Q4HP PRN NG 01/02/25 21:15 01/06/25 12:53 1 TAB Apixaban 5 mg BID PO 01/06/25 10:45 01/06/25 21:14 5 MG Lactulose 30 ml DAILY PO 01/06/25 10:45 Metoprolol Tartrate 25 mg BID PO 01/06/25 10:45 01/06/25 21:15 25 MG Insulin Glargine 10 units HS SC 01/06/25 22:00 01/06/25 21:24 10 UNITS Prednisone 30 mg DAILY PO 01/07/25 10:00 Bumetanide 1 mg DAILY IV 01/07/25 10:00 objective GENERAL: Alert and oriented x 3. No acute distress. Morbidly obese. EYES: PERRL, EOMI. Anicteric. HENT: Moist mucous membranes. LUNGS: Decreased all breath sounds. CARDIOVASCULAR: Regular rate and rhythm. ABDOMEN: Soft, nontender and nondistended. EXTREMITIES: No edema. SKIN: Warm, dry. laboratory and microbiology Laboratory Tests 01/06/25 10:20 Test 01/06/25 10:20 Range/Units Serum Glucose 208 H 74-106 mg/dL Problem List Accidental medication overdose. Acute encephalopathy. Acute respiratory failure. Respiratory acidosis. Right pleural effusion. Leukocytosis Chest pain. Bradycardia. CHF. CAD. Acute renal failure Hyperkalemia. UTI. DM type 2. Hypertension. Morbid obesity. History of CVA. Assessment/Plan Continued all current supportive medical care. Morphine and [place] for pain. Eliquis. Diuretics with Bumex. IV Hydralazine for SBP >150. Metoprolol. GI prophylactics. Additional plan as per the hospital course. Dietary Evaluation Review Comments: 1. Pt is on fat energy support through Propofol of 860 kca, the TF needs to be a low fat, high proteiin formula. Suggest using Vital High Protein @45ml/hr, in 24 hr, pt will receive 1080 kca, 94 g protein, This formula will satisfy pt's protein neeeds at 79% and energy needs at 79% including the 860 kcal provided by Propofol running at 32.6ml/hr. Expected Outcomes/Goals: 1. Reassess protein and energy needs when pt is off vent, based on her true weight without fluid retention and possibably an improved kideny function, 2. Advance to [facility]-diet with updated protein and energy needs, when medically feasible providing that she passes a SLOPE HOIST OPERATOR eval. Plan discussed with: Patient FRANTZ HOSKINS MD January 06, 2025 22:30
[2025-01-07] VITALS (14 sets, daily range): BP systolic 112–145; BP diastolic 59–76; PULSE 69–77; RESP 16–20; TEMP 97.8–98.3; O2SAT 92–100
[2025-01-07 06:44] LABS: Basophils # (auto) 0.1 10 ^3/uL (0-0.2); Eosinophils # (auto) 0.1 10 ^3/uL (0-0.8); Hemoglobin 11.6 g/dL (12.2-16.2); Monocytes # (auto) 0.9 10 ^3/uL (0-1.3); Neutrophils # (auto) 9.5 10 ^3/uL (1.6-8.6); Nucleated Red Blood Cells % 0.2 %
[2025-01-07 06:47] LABS: Basophils % (auto) 0.4 % (0.0-2.0); Eosinophils % (auto) 0.7 % (0.0-7.0); Hematocrit 36.7 % (36.0-46.0); Lymphocytes # (auto) 1.1 10 ^3/uL (0.4-5.4); Lymphocytes % (auto) 9.2 % (10.0-50.0); Mean Corpuscular Hemoglobin 24.8 pg (28.0-32.0); Mean Corpuscular Hgb Conc. 31.6 g/dL (32.0-36.0); Mean Corpuscular Volume 78.5 fL (80.0-100.0); Monocytes % (auto) 7.9 % (0.0-12.0); Neutrophils % (auto) 81.8 % (37.0-80.0); Platelet Count (auto) 419 10^3/uL (140-450); Red Blood Cells 4.67 10^6/uL (4.0-5.20); Red Cell Distribution Width 18.8 % (11.8-14.3); White Blood Cell 11.6 10^3/uL (4.4-10.8)
[2025-01-07 06:48] LABS: Anion Gap 9 (5-15); Potassium 3.7 mmol/L (3.5-5.1)
[2025-01-07 06:54] LABS: BUN/Creatinine Ratio 55.3 (10.0-20.0)
[2025-01-07 07:00] LABS: Calcium 10.5 mg/dL (8.7-10.4); Carbon Dioxide 35 mmol/L (20-31); Chloride 86 mmol/L (98-107); Glucose 185 mg/dL (74-106); Sodium 130 mmol/L (136-145)
[2025-01-07 07:01] LABS: Blood Urea Nitrogen 84 mg/dL (9-23)
[2025-01-07] MEDS: BUMETANIDE 1mg/4ml VIAL (0.25mg/ml) IV SCH (10:16)
[2025-01-07] MEDS: predniSONE 20 MG TAB PO SCH (10:21)
--- NOTE | 2025-01-07 16:22 | DVHPNRES ---
Progress Note Date Seen: January 07, 2025 Resident Creating Document: JEREMY JI Medical Necessity Reason Pt with a Central, PICC or Fol: Yes The following are medically ne: Mayo Catheter Reason for mayo catheter: Strict I&O Subjective Review of Systems Patient seen and examined at the bedside Patient extubated on 12/28 Alert and oriented x3 Patient diuresing well Reports of back pain On pureed diet Objective vital signs Vital Sign Date Time Temp Pulse Resp B/P (MAP) Pulse Ox O2 Delivery O2 Flow Rate FiO2 01/07/25 13:57 116/57 01/07/25 13:00 97.8 70 18 96 97.8 01/07/25 11:26 Nasal Cannula* 2 28 Total Intake and Output 01/06/25 01/06/25 01/07/25 14:59 22:59 06:59 Intake Total 800 ml 100 ml Output Total 650 ml 700 ml Balance 150 ml -600 ml medications Current Medications Medications Dose Ordered Sig/Julito Route Start Time Stop Time Status Last Admin Dose Admin Diagnostic Test (Pha) 1 strip Q6HR 12/15/24 12:00 01/07/25 11:45 1 STRIP Insulin Human Regular Q6HR SC 12/15/24 12:00 01/07/25 11:51 4 UNITS Dextrose 50 ml UD PRN IV 12/15/24 07:00 Ipratropium [place] 0.5 mg Q6HR NEB 12/17/24 00:00 01/07/25 11:26 0.5 MG Albuterol 2.5 mg Q6HR NEB 12/17/24 00:00 01/07/25 11:26 2.5 MG Pantoprazole Sodium 40 mg DAILY IV 12/17/24 10:00 01/07/25 10:15 40 MG Hydralazine HCl 50 mg TID PO 12/27/24 14:00 01/07/25 06:05 50 MG Sodium Chloride 10 ml QSHIFT@10, IV 12/27/24 22:00 01/07/25 10:15 10 ML Acetaminophen 650 mg Q6HP PRN PO 12/28/24 14:45 Isosorbide Dinitrate 30 mg TID PO 12/30/24 14:00 01/07/25 06:05 30 MG Potassium Chloride 100 ml @ 50 mls/hr Q2H IV 12/31/24 11:00 12/31/24 14:59 Cancel Sodium Chloride 1 spr QID EACHNOSTRI 01/01/25 18:00 01/07/25 11:45 1 SPR Ondansetron HCl 4 mg Q6HP PRN IV 01/01/25 18:00 01/02/25 15:21 4 MG Promethazine HCl 12.5 mg Q6HP PRN PO 01/01/25 17:00 Spironolactone 25 mg BID@0000,1200 PO 01/03/25 00:00 01/07/25 11:44 25 MG Acetaminophen/ Hydrocodone Bitart 1 tab Q4HP PRN NG 01/02/25 21:15 01/07/25 00:48 1 TAB Apixaban 5 mg BID PO 01/06/25 10:45 01/07/25 10:20 5 MG Lactulose 30 ml DAILY PO 01/06/25 10:45 01/07/25 10:15 30 ML Metoprolol Tartrate 25 mg BID PO 01/06/25 10:45 01/07/25 10:21 25 MG Insulin Glargine 10 units HS SC 01/06/25 22:00 01/06/25 21:24 10 UNITS Prednisone 30 mg DAILY PO 01/07/25 10:00 01/07/25 10:21 30 MG Bumetanide 1 mg DAILY PO 01/08/25 10:00 UNV Examination Examination Constitutional: Patient morbidly obese, on NC, Gen - no pallor, no icterus, no cyanosis, no clubbing, no LAD, trace edema. Skin - Patients skin is warm and dry. HEENT - normocephalic, atraumatic, moist mucous membranes, bleeding seen in the nostrils Neck - full ROM, no LAD, JVD could not be assessed. Pulmonary - B/L diminished breath sounds, no wheezing cardiovascular - variable S1,S2 heard, no added sounds, no murmurs heard. GI - obese, soft abdomen, large area of dark discoloration below the umbilicus Neurological - A/O X 3, following commands and able to move arms with strength 4/5 but weakness in legs, understandable speech, able to swallow laboratory and microbiology Laboratory Tests 01/07/25 05:12 Test 01/07/25 05:12 Range/Units Serum Glucose 185 H 74-106 mg/dL Microbiology Date/Time Source Procedure Growth Status 01/06/25 12:30 Nose MRSA Screen - Final Methicillin Resistant S.aureus Complete 01/01/25 04:30 Sputum Expectorated Sputum Gram Stain - Final Complete 01/01/25 04:30 Respiratory Culture - Final Yeast, not [place] albicans Complete 12/31/24 18:50 Blood Blood Culture - Final NO GROWTH AFTER 5 DAYS OF INCUBATION. Complete 12/31/24 18:30 Urine - Mayo [place] Urine Culture - Final Complete Labs and/or images reviewed: Labs reviewed by me, Image(s) reviewed by me Problem List/Assessment/Plan Problem List/Assessment/Plan Assessment and plan: Neurology Acute metabolic encephalopathy likely due to hypercapnia - extubated on 12/28 Respiratory Acute on chronic hypoxic/hypercarbic respiratory failure likely due to COPD/LAZARA/OHS On mechanical ventilation Severe sepsis with acute organ dysfucntion likely due to pneumonia MRSA and pseudomonas pneumonia Pulmonary edema - sputum cultures growing MRSA and pseudomonas, cleared up - repeat sputum cultures growing asia - diuresis with bumex and spironolactone - prednisone 40mg qd Cardiovascular Acute on chronic heart failure with preserved ejection fraction Severe right ventricular failure with pulm HTN d/t underlying ?left heart failure ?LAZARA ?COPD , unknown chronicity, likely present on admission Pulmonary edema likely due to above Hypertensive heart disease with heart failure Bradycardia with AV block ?accidental medication overdose, junctional rhythm, resolved H/o atrial fibrillation - ECG showed bradycardia with prolonged WA interval - Echo shows LVEF 60% with mod degree LV diastolic dysfucntion, mod dilated LA, moderate degree MR, mod dilated and hypokinetic RV associated Dyskinesis with major RV failure - on Bumex - hydralazine 50 mg t.i.d. and isosorbide dinitrate 30 mg t.i.d. - spironolactone 25mg bid - metoprolol tartrate 25mg bid - eliquis 5mg bid Nephrology VIVI on CKD likely prerenal due to VMN - FENa < 1% - BUN and creatinine improving Endocrinology Insulin-dependent type 2 diabetes mellitus with hyperglycemia - on insulin sliding scale - on pureed diet Infectious disease Sepsis likely due to pneumonia/UTI UTI with long-term indwelling Mayo catheter, with ESBL E.coli present on admission MRSA nares positive - urine culture showed ESBL E.Coli - respiratory culture showed yeast - blood cultures showed growth of staph epidermidis which could be a contaminant, repeat culture negative - mupirocin ointment Diet: pureed diet PUD prophylaxis: Protonix DVT prophylaxis: eliquis right thigh PICC line inserted on 12/27 Mayo's catheter changed on 01/01 Goals of care discussed with the patient's family for over 21 minutes. Full code Plan discussed with Dr. Peace Plan discussed with: Patient, Other My Orders My Orders Orders - JEREMY JI RESIDENT Procedure Category Date Status Time * Director Of Student Financial Services CONS 01/07/25 Transmitted Consult Bumetanide Tablet PHA 01/08/25 Logged (Bumex Tablet) 10:00 Dietary Evaluation Review Comments: 1. Pt is on fat energy support through Propofol of 860 kca, the TF needs to be a low fat, high proteiin formula. Suggest using Vital High Protein @45ml/hr, in 24 hr, pt will receive 1080 kca, 94 g protein, This formula will satisfy pt's protein neeeds at 79% and energy needs at 79% including the 860 kcal provided by Propofol running at 32.6ml/hr. Expected Outcomes/Goals: 1. Reassess protein and energy needs when pt is off vent, based on her true weight without fluid retention and possibably an improved kideny function, 2. [facility] updated protein and energy needs, when medically feasible providing that she passes a LINER HELPER eval. Date of Service: January 07, 2025 Billing Provider: FRANNY PEACE MD Common Visit Codes: [id number] INP/OBS CARE(HIGH) Secondary Visit Codes: [id number] CARE PLAN 30 MINUTES Date of Service: January 07, 2025 Billing Provider: FRANNY PEACE MD Common Visit Codes: [id number] INP/OBS CARE(HIGH) Secondary Visit Codes: [id number] CARE PLAN 30 MINUTES JEREMY JI January 07, 2025 16:21 FRANNY PEACE MD January 08, 2025 16:03
--- NOTE | 2025-01-07 23:32 | DVHPN2 ---
Progress Note - Dictate Date Seen: January 07, 2025 Medical Necessity Reason Pt with a Central, PICC or Fol: Yes The following are medically ne: Mayo Catheter Reason for mayo catheter: Strict I&O Subjective Patient was seen and evaluated in follow up. Patient is now on room air. Patient is complaining of back pain. Patient diuresing well. WBC 11.6, CO2 35, BUN 84, Conductor/Engineer 1.52. Telemetry reviewed. vital signs Vital Sign Date Time Temp Pulse Resp B/P (MAP) Pulse Ox O2 Delivery O2 Flow Rate FiO2 01/07/25 22:14 70 114/60 01/07/25 21:00 98.1 17 97 98.1 01/07/25 20:00 Room Air* 0 21 Total Intake and Output 01/06/25 01/06/25 01/07/25 15:00 23:00 07:00 Intake Total 800 ml 100 ml Output Total 650 ml 700 ml Balance 150 ml -600 ml medications Current Medications Medications Dose Ordered Sig/Julito Route Start Time Stop Time Status Last Admin Dose Admin Diagnostic Test (Pha) 1 strip Q6HR 12/15/24 12:00 01/07/25 17:40 1 STRIP Insulin Human Regular Q6HR SC 12/15/24 12:00 01/07/25 18:43 6 UNITS Dextrose 50 ml UD PRN IV 12/15/24 07:00 Ipratropium [place] 0.5 mg Q6HR NEB 12/17/24 00:00 01/07/25 11:26 0.5 MG Albuterol 2.5 mg Q6HR NEB 12/17/24 00:00 01/07/25 11:26 2.5 MG Pantoprazole Sodium 40 mg DAILY IV 12/17/24 10:00 01/07/25 10:15 40 MG Hydralazine HCl 50 mg TID PO 12/27/24 14:00 01/07/25 06:05 50 MG Sodium Chloride 10 ml QSHIFT@ IV 12/27/24 22:00 01/07/25 22:11 10 ML Acetaminophen 650 mg Q6HP PRN PO 12/28/24 14:45 Isosorbide Dinitrate 30 mg TID PO 12/30/24 14:00 01/07/25 06:05 30 MG Potassium Chloride 100 ml @ 50 mls/hr Q2H IV 12/31/24 11:00 12/31/24 14:59 Cancel Sodium Chloride 1 spr QID EACHNOSTRI 01/01/25 18:00 01/07/25 22:10 1 SPR Ondansetron HCl 4 mg Q6HP PRN IV 01/01/25 18:00 01/02/25 15:21 4 MG Promethazine HCl 12.5 mg Q6HP PRN PO 01/01/25 17:00 Spironolactone 25 mg BID@0000,1200 PO 01/03/25 00:00 01/07/25 11:44 25 MG Acetaminophen/ Hydrocodone Bitart 1 tab Q4HP PRN NG 01/02/25 21:15 01/07/25 10:15 1 TAB Apixaban 5 mg BID PO 01/06/25 10:45 01/07/25 22:14 5 MG Lactulose 30 ml DAILY PO 01/06/25 10:45 01/07/25 10:15 30 ML Metoprolol Tartrate 25 mg BID PO 01/06/25 10:45 01/07/25 22:14 25 MG Insulin Glargine 10 units HS SC 01/06/25 22:00 01/06/25 21:24 10 UNITS Prednisone 30 mg DAILY PO 01/07/25 10:00 01/07/25 10:21 30 MG Bumetanide 1 mg DAILY PO 01/08/25 10:00 objective GENERAL: Alert and oriented x 3. No acute distress. Morbidly obese. EYES: PERRL, EOMI. Anicteric. HENT: Moist mucous membranes. LUNGS: Decreased all breath sounds. CARDIOVASCULAR: Regular rate and rhythm. ABDOMEN: Soft, nontender and nondistended. EXTREMITIES: No edema. SKIN: Warm, dry. laboratory and microbiology Laboratory Tests 01/07/25 05:12 Test 01/07/25 05:12 Range/Units Serum Glucose 185 H 74-106 mg/dL Problem List Accidental medication overdose. Acute encephalopathy. Acute respiratory failure. Respiratory acidosis. Right pleural effusion. Leukocytosis Chest pain. Bradycardia. CHF. CAD. Acute renal failure Hyperkalemia. UTI. DM type 2. Hypertension. Morbid obesity. History of CVA. Assessment/Plan Continued all current supportive medical care. Morphine and [place] for pain. Eliquis. Diuretics with Bumex. IV Hydralazine for SBP >150. Metoprolol. GI prophylactics. Additional plan as per the hospital course. Dietary Evaluation Review Comments: 1. Pt is on fat energy support through Propofol of 860 kca, the TF needs to be a low fat, high proteiin formula. Suggest using Vital High Protein @45ml/hr, in 24 hr, pt will receive 1080 kca, 94 g protein, This formula will satisfy pt's protein neeeds at 79% and energy needs at 79% including the 860 kcal provided by Propofol running at 32.6ml/hr. Expected Outcomes/Goals: 1. Reassess protein and energy needs when pt is off vent, based on her true weight without fluid retention and possibably an improved kideny function, 2. Advance to [facility]-diet with updated protein and energy needs, when medically feasible providing that she passes a NUCLEAR MEDICINE OFFICER eval. Plan discussed with: Patient FRANTZ HOSKINS MD January 07, 2025 23:32
[2025-01-08] VITALS (18 sets, daily range): BP systolic 113–145; BP diastolic 55–80; PULSE 66–83; RESP 16–19; TEMP 97.8–98.6; O2SAT 92–100
[2025-01-08 06:44] LABS: Basophils # (auto) 0.1 10 ^3/uL (0-0.2); Basophils % (auto) 0.5 % (0.0-2.0); Eosinophils # (auto) 0.1 10 ^3/uL (0-0.8); Eosinophils % (auto) 0.5 % (0.0-7.0); Hematocrit 37.3 % (36.0-46.0); Hemoglobin 11.9 g/dL (12.2-16.2); Lymphocytes # (auto) 1.1 10 ^3/uL (0.4-5.4); Lymphocytes % (auto) 9.2 % (10.0-50.0); Mean Corpuscular Hemoglobin 25.1 pg (28.0-32.0); Mean Corpuscular Hgb Conc. 31.9 g/dL (32.0-36.0); Mean Corpuscular Volume 78.6 fL (80.0-100.0); Monocytes # (auto) 0.8 10 ^3/uL (0-1.3); Monocytes % (auto) 6.9 % (0.0-12.0); Neutrophils # (auto) 9.7 10 ^3/uL (1.6-8.6); Neutrophils % (auto) 82.9 % (37.0-80.0); Nucleated Red Blood Cells % 0.1 %; Platelet Count (auto) 444 10^3/uL (140-450); Red Blood Cells 4.75 10^6/uL (4.0-5.20); Red Cell Distribution Width 19.4 % (11.8-14.3); White Blood Cell 11.8 10^3/uL (4.4-10.8)
[2025-01-08 06:53] LABS: Potassium 3.7 mmol/L (3.5-5.1)
[2025-01-08 06:54] LABS: Anion Gap 7 (5-15)
[2025-01-08 06:55] LABS: Calcium 9.7 mg/dL (8.7-10.4)
[2025-01-08 07:04] LABS: Carbon Dioxide 35 mmol/L (20-31); Chloride 87 mmol/L (98-107); Sodium 129 mmol/L (136-145)
[2025-01-08 07:16] LABS: BUN/Creatinine Ratio 54.4 (10.0-20.0); Blood Urea Nitrogen 68 mg/dL (9-23); Glucose 161 mg/dL (74-106)
[2025-01-08] MEDS: PANTOPRAZOLE 40 MG TAB PO ONE (07:28)
[2025-01-08] MEDS: BUMETANIDE 1 MG TAB PO SCH (10:24)
[2025-01-08] MEDS: MUPIROCIN 2% OINT 15gm or 22gm FOR MRSA NARES EACHNOSTRI SCH (13:03)
--- NOTE | 2025-01-08 13:30 | DVHDSRES ---
Discharge Summary Date of Admission Resident Creating Document: JEREMY JI RESIDENT Dec 15, 2024 at 06:46 Date of Discharge: January 08, 2025 Admitting Diagnosis Acute metabolic encephalopathy likely due to hypercapnia Wounds: No open wound was present Labs/Diagnostic Data: Laboratory Results Test 01/08/25 12:26 01/08/25 05:00 01/06/25 10:20 01/06/25 09:49 POC Glucose 190 mg/dl (70-106) White Blood Count 11.8 10^3/uL (4.4-10.8) Red Blood Count 4.75 10^6/uL (4.0-5.20) Hemoglobin 11.9 g/dL (12.2-16.2) Hematocrit 37.3 % (36.0-46.0) Mean Corpuscular Volume 78.6 fL (80.0-100.0) Mean Corpuscular Hemoglobin 25.1 pg (28.0-32.0) Mean Corpuscular Hemoglobin Concent 31.9 g/dL (32.0-36.0) Red Cell Distribution Width 19.4 % (11.8-14.3) Platelet Count 444 10^3/uL (140-450) Mean Platelet Volume 8.6 fL (6.9-10.8) Neutrophils (%) (Auto) 82.9 % (37.0-80.0) Lymphocytes (%) (Auto) 9.2 % (10.0-50.0) Monocytes (%) (Auto) 6.9 % (0.0-12.0) Eosinophils (%) (Auto) 0.5 % (0.0-7.0) Basophils (%) (Auto) 0.5 % (0.0-2.0) Neutrophils # (Auto) 9.7 10 ^3/uL (1.6-8.6) Lymphocytes # (Auto) 1.1 10 ^3/uL (0.4-5.4) Monocytes # (Auto) 0.8 10 ^3/uL (0-1.3) Eosinophils # (Auto) 0.1 10 ^3/uL (0-0.8) Basophils # (Auto) 0.1 10 ^3/uL (0-0.2) Nucleated Red Blood Cells 0.1 % Sodium Level 129 mmol/L (136-145) Potassium Level 3.7 mmol/L (3.5-5.1) Chloride Level 87 mmol/L (98-107) Carbon Dioxide Level 35 mmol/L (20-31) Anion Gap 7 (5-15) Blood Urea Nitrogen 68 mg/dL (9-23) Creatinine 1.25 mg/dL (0.550-1.02) Glomerular Filtration Rate Calc 49 mL/min (>90) BUN/Creatinine Ratio 54.4 (10.0-20.0) Serum Glucose 161 mg/dL (74-106) Calcium Level 9.7 mg/dL (8.7-10.4) Total Bilirubin 0.5 mg/dL (0.2-1.0) Aspartate Amino Transferase (AST) 17 U/L (13-40) Alanine Aminotransferase (ALT) 22 U/L (7-40) Alkaline Phosphatase 63 U/L (46-116) Total Protein 7.0 g/dL (5.7-8.2) Albumin 4.3 g/dL (3.2-4.8) Blood Gas Specimen Type Arterial Blood Gas Sample Site Left radial Blood Gas Patient Temperature 37.0 Arterial Blood Date Drawn [id number] Arterial Blood pH 7.454 (7.350-7.450) Arterial Blood Partial Pressure CO2 54.9 mmHg (32.0-45.0) Arterial Blood Partial Pressure O2 109.6 mmHg (83.0-108.0) Arterial Blood HCO3 37.6 mmol/L (21.0-28.0) Arterial Blood Oxygen Saturation 98.3 % (94.0-98.0) Arterial Blood Base Excess 11.6 mmol/L (-2.0-3.0) Arterial Blood Oxyhemoglobin 96.8 % (94.0-98.0) Arterial Blood Carboxyhemoglobin 0.9 % (0.5-1.5) Arterial Blood Methemoglobin 0.6 % (0.0-1.5) Al[place]to Test Yes Blood Gas Total Hemoglobin 13.30 g/dL (12.0-16.0) Blood Gas Modality Nasal cannula FiO2 % 28.0 Test 01/03/25 09:45 01/01/25 12:00 12/31/24 13:29 12/28/24 12:13 Magnesium Level 2.0 mg/dL (1.6-2.6) Prothrombin Time 11.9 sec (9.3-11.8) Prothrombin Time INR 1.14 (0.9-1.15) Activated Partial Thromboplast Time 29.6 SEC (24.5-34.5) Blood Gas Liter Flow 2.00 Blood Gas Critical Value Read Back Yes Blood Gas Notified Whom Dr. eduardo Blood Gas Notified Time [id number] Blood Gas Notified By Jose Alberto peraza, delivery lead Blood Gas Spontaneous Rate 14 Blood Gas Tidal Volume 450.0 Blood Gas Pressure Support 7 Blood Gas PEEP or CPAP 5.0 Test 12/28/24 07:29 12/25/24 03:00 12/23/24 18:18 12/23/24 16:13 Blood Gas Set Respiration Rate 22.0 Phosphorus Level 4.1 mg/dL (2.4-5.1) Blood Gas Spontaneous Tidal Volume 448 Blood Gas Inspiratory Pressure 21.0 Bl Gas Inspiratory/Expiratory Ratio 1:2.3 Blood Gas EPAP 7 Blood Gas IPAP 15 Test 12/15/24 14:00 12/15/24 13:45 12/15/24 07:10 12/14/24 23:23 Hemoglobin A1c 7.2 % A1C (<5.7) Vitamin D 25-Hydroxy 32.0 ng/mL (30.0-100) Parathyroid Hormone (Intact) 232.6 pg/mL (18.4-80.1) Urine Color Light-yellow (Yellow) Urine Clarity Turbid (Clear) Urine pH 6.5 (5.0-9.0) Urine Specific [place] 1.011 (1.001-1.035) Urine Protein Trace (Negative) Urine Ketones Negative (Negative) Urine Blood Trace /uL (Negative) Urine Nitrite Negative (Negative) Urine Bilirubin Negative (Negative) Urine Urobilinogen Normal mg/dL (Negative) Urine Leukocyte Esterase 3+ /uL (Negative) Urine RBC 4 /hpf (0 - 4) Urine Microscopic WBC 39 /HPF (0-5) Urine Squamous Epithelial Cells Few /hpf (<5) Urine Bacteria Many /hpf (None Seen) Urine Creatinine 51.30 mg/dL (30.0-125.0) Urine Protein/Creatinine Ratio 0.67 Urine Sodium 16 mmol/L (40-220) Urine Glucose Normal mg/dL (Normal) Urine Total Protein 34.5 mg/dL (1-14) Triglycerides Level 95 mg/dL (< 150) Cholesterol Level 129 mg/dL (< 200) LDL Cholesterol 47 mg/dL (< 100) HDL Cholesterol 60 mg/dL (40-59) Thyroid Stimulating Hormone (TSH) 1.50 uIU/mL (0.55-4.78) Troponin I High Sensitivity 12 ng/L (</=34) Test 12/14/24 23:16 12/14/24 21:21 12/14/24 19:23 Urine WBC Clumps Present /hpf (None Seen) Urine Calcium Oxalate Crystals Few (None Seen) Urine Hyaline Casts Many /lpf (0 - 2) Urine Mucus Few (None Seen) Urine Opiates Screen Pos (NEGATIVE) Urine Fentanyl Screen Pos (NEGATIVE) Urine Barbiturates Screen Neg (NEGATIVE) Urine Phencyclidine Screen Neg (NEGATIVE) Urine Amphetamines Screen Neg (NEGATIVE) Urine Benzodiazepines Screen Pos (NEGATIVE) Urine Cocaine Screen Neg (NEGATIVE) Urine Cannabinoids Screen Neg (NEGATIVE) Lactic Acid Level 0.8 mmol/L (0.4-2.0) Creatine Kinase 84 U/L (34-145) B-Type Natriuretic Peptide 298.73 pg/mL (0-100) Lipase 39 U/L (12-53) Salicylates Level < 3.0 mg/dL (-30) Acetaminophen Level < 2.0 UG/ML (10.0-20.0) Other Laboratory Tests 01/08/25 05:00 Brief Hx & Hospital Course: Patient is a 59-year-old female with a past medical history of COPD, insulin dependent type 2 diabetes mellitus, congestive heart failure, coronary artery disease was brought to the hospital via EMS with altered mental status and bradycardia. As per patient's niece who is her take her slag expander, when she went to her room to give in the afternoon, she found with the patient to be confused and she checked her vitals reported low blood pressure and heart rate in 30s which she suspected might be because she took her blood pressure medications twice, following which she called EMS and the patient was brought to the hospital. She reports patient has been in and out of the hospital since the past 6 months for complains of shortness of breath. The last time she was hospitalized was in [facility] about 2.5-3 months ago following which she was sent to rehab facility and [facility] from where she got discharged about a week ago to home. Patient has been bed-bound since the last 2 years. At home patient has an oxygen concentrator and uses oxygen at 8-10 L per minute. Patient came in with altered mental status and ABG showed respiratory acidosis following which she was intubated and put on mechanical ventilation. Hospital course: The patient was intubated on 12/16/2024 due to acute metabolic encephalopathy likely due to hypoxic/hypercarbic respiratory failure and subsequently treated for acute on chronic hypoxic/hypercarbic respiratory failure due to COPD /LAZARA/OHS and, sepsis with septic shock due to MRSA pneumonia, pulmonary edema with acute on chronic systolic heart failure, VIVI on CKD likely prerenal hemodynamically mediated, and UTI. Patient was treated with IV methylprednisolone, aggressive diuresis with IV Bumex, metolazone and spironolactone, IV vancomycin per pharmacy for MRSA pneumonia, IV ceftriaxone and resumed home medications for blood pressure control and Eliquis for prevention of secondary hypercoagulable state. The patient was extubated on 0 12/28/24 and downgraded to telemetry. The patient passed swallow evaluation and slowly we started oral feeding and patient was able to tolerate oral p.o. diet and resolved post extubation confusion and patient was alert and oriented x3 for last few days and on 2 L oxygen saturation 97%. Family was informed about the patient's condition on daily basis. Physical therapy evaluated the patient and recommended SNF for rehabilitation the patient has utilized all available SNF days per their insurance coverage and alternative discharge planning is being coordinated accordingly. The patient is being discharged to home with home health for rehabilitation and nutrition. Examination Constitutional: Patient morbidly obese, on NC, Gen - no pallor, no icterus, no cyanosis, no clubbing, no LAD, trace edema. Skin - Patients skin is warm and dry. HEENT - normocephalic, atraumatic, moist mucous membranes, bleeding seen in the nostrils Neck - full ROM, no LAD, JVD could not be assessed. Pulmonary - B/L diminished breath sounds, no wheezing cardiovascular - variable S1,S2 heard, no added sounds, no murmurs heard. GI - obese, soft abdomen, large area of dark discoloration below the umbilicus Neurological - A/O X 3, following commands and able to move arms with strength 4/5 but weakness in legs, understandable speech, able to swallow time spent in discharge planning was 41 mins Consults/Reason for consult Cardiology, pulmonology and nephrology were consulted. Operations or Procedures EXAM: XY R TIB FIB XRAY CLINICAL HISTORY: right lower extremity IO COMPARISON: None TECHNIQUE: XY R TIB FIB XRAY Findings/Impression: Single lateral view the right tibia and fibula. There is no evidence of an acute fracture, dislocation, blastic, or lytic lesions. Catheter overlying the proximal tibia. No superficial soft tissue abnormalities. EXAM: XR Chest, 1 View on 12/18/24 CLINICAL INDICATION: B/l Pulmonary edema, on mechanical ventilation TECHNIQUE: Frontal view of the chest. COMPARISON: XY CHEST XRAY 1 VIEW on DOS: 12/17/24, XY CHEST PORTABLE on DOS: 12/16/24, XY CHEST XRAY 1 VIEW on DOS: 12/15/24, XY CHEST XRAY 1 VIEW on DOS: 12/14/24, XY CHEST XRAY 1 VIEW on DOS: 12/14/24 FINDINGS: LUNGS AND PLEURAL SPACES: See below. HEART: Cardiomegaly with moderate pulmonary congestion. MEDIASTINUM: Unremarkable. Normal mediastinal contour. BONES/JOINTS: Unremarkable. No acute fracture. TUBES, LINES AND DEVICES: The endotracheal tube (ETT) is in satisfactory position. Enteric tube tip in the stomach. IMPRESSION: Cardiomegaly with moderate pulmonary congestion. CHEST RADIOGRAPH on 01/07/25 Indication: R/O ASPIRATION Technique: Single frontal view of the chest was obtained COMPARISON: XY CHEST XRAY 1 VIEW on DOS: 01/02/25, XY CHEST XRAY 1 VIEW on DOS: 01/01/25, XY CHEST XRAY 1 VIEW on DOS: 12/31/24, XY CHEST PORTABLE on DOS: 12/30/24, XY CHEST PORTABLE on DOS: 12/29/24 FINDINGS: Lines and Tubes: Enteric catheter tube tip appears to extend below the left hemidiaphragm. Lungs: Congestion. Pleura: No effusion. No pneumothorax. Cardiomediastinal contours: Unremarkable Bones: Unremarkable IMPRESSION: No significant interval change. Condition at Discharge: Guarded Final Diagnosis/Problems List Acute metabolic encephalopathy likely due to hypercapnia Acute on chronic hypoxic/hypercarbic respiratory failure likely due to COPD/LAZARA/OHS Severe sepsis with acute organ dysfucntion likely due to pneumonia MRSA and pseudomonas pneumonia Pulmonary edema Acute on chronic heart failure with preserved ejection fraction Severe right ventricular failure with pulm HTN d/t underlying ?left heart failure ?LAZARA ?COPD , unknown chronicity, likely present on admission Pulmonary edema likely due to above Hypertensive heart disease with heart failure Bradycardia with AV block ?accidental medication overdose, junctional rhythm, resolved H/o atrial fibrillation VIVI on CKD likely prerenal due to VMN Insulin-dependent type 2 diabetes mellitus with hyperglycemia Sepsis likely due to pneumonia/UTI UTI with long-term indwelling Gee catheter, with ESBL E.coli present on admission Discharge Disposition: Home with Health Services Discharge Instruct/Medications Diet: Consistent carbohydrate, Cardiac 2g Na,low cholest Activity: No Restrictions, As Tolerated Follow Up/Referral: Follow up with PCP in 1 week. Medications: As per EMR Discharge Statement: "Patient was advised to return to the ER or call 911 if any headaches, dizziness, shortness of breath, chest pain, abdominal pain, bleeding, fevers, or worsening of medical condition. Patient was counseled about treatment plan, medications, possible side effects, patientverbalized understanding. All questions were answered to the best of my ability. This discharge took greater then 30 minutes in planning, reviewing documentation, counseling the patient, and discussing with other team members." ASSESSMENT ASSESSMENT Assessment Acute metabolic encephalopathy likely due to hypercapnia Acute on chronic hypoxic/hypercarbic respiratory failure likely due to COPD/LAZARA/OHS Severe sepsis with acute organ dysfucntion likely due to pneumonia MRSA and pseudomonas pneumonia Pulmonary edema Acute on chronic heart failure with preserved ejection fraction Severe right ventricular failure with pulm HTN d/t underlying ?left heart failure ?LAZARA ?COPD , unknown chronicity, likely present on admission Pulmonary edema likely due to above Hypertensive heart disease with heart failure Bradycardia with AV block ?accidental medication overdose, junctional rhythm, resolved H/o atrial fibrillation VIVI on CKD likely prerenal due to VMN Insulin-dependent type 2 diabetes mellitus with hyperglycemia Sepsis likely due to pneumonia/UTI UTI with long-term indwelling Gee catheter, with ESBL E.coli present on admission Date of Service: January 08, 2025 Billing Provider: FRANNY PEACE MD Common Visit Codes: [id number]-[id number]/OBS DISCH DAY >30min JEREMY JI January 08, 2025 13:30 FRANNY PEACE MD January 09, 2025 12:04
[2025-01-08] MEDS ORDERED: SPIR25TA8 PO (17:41)
[2025-01-08] MEDS ORDERED: APIX5TAB PO (17:41)
[2025-01-08] MEDS ORDERED: ISOS1TAB37 PO (17:41)
[2025-01-08] MEDS ORDERED: METO25TA5 PO (17:41)
[2025-01-08] MEDS ORDERED: PRED20TA2 PO (17:41)
--- NOTE | 2025-01-08 22:25 | DVHPN2 ---
Progress Note - Dictate Date Seen: January 08, 2025 Medical Necessity Reason Pt with a Central, PICC or Fol: Yes The following are medically ne: Mayo Catheter Reason for mayo catheter: Strict I&O Subjective Patient was seen and evaluated in follow up. No overnight events. Patient is complaining of 6/10 back pain. Patient is on 2 LPM NC. WBC 11.8, NA 129, CO2 35, BUN 68, CMM TECHNICIAN 1.25. Patient has agreed to SNF placement. Telemetry reviewed. vital signs Vital Sign Date Time Temp Pulse Resp B/P (MAP) Pulse Ox O2 Delivery O2 Flow Rate FiO2 01/08/25 13:00 98.6 77 18 113/56 (75) 93 98.6 01/08/25 12:03 Nasal Cannula 2.0 01/08/25 12:03 28 Total Intake and Output 01/07/25 01/07/25 01/08/25 15:00 23:00 07:00 Intake Total 300 ml 1800 ml Output Total 200 ml 5400 ml Balance 100 ml -3600 ml medications Current Medications Medications Dose Ordered Sig/Julito Route Start Time Stop Time Status Last Admin Dose Admin Diagnostic Test (Pha) 1 strip Q6HR 12/15/24 12:00 01/08/25 12:00 1 STRIP Insulin Human Regular Q6HR SC 12/15/24 12:00 01/08/25 12:42 3 UNITS Dextrose 50 ml UD PRN IV 12/15/24 07:00 Ipratropium [place] 0.5 mg Q6HR NEB 12/17/24 00:00 01/08/25 12:03 0.5 MG Albuterol 2.5 mg Q6HR NEB 12/17/24 00:00 01/08/25 12:03 2.5 MG Hydralazine HCl 50 mg TID PO 12/27/24 14:00 01/08/25 06:10 50 MG Sodium Chloride 10 ml QSHIFT@10,22 IV 12/27/24 22:00 01/08/25 10:00 10 ML Acetaminophen 650 mg Q6HP PRN PO 12/28/24 14:45 Isosorbide Dinitrate 30 mg TID PO 12/30/24 14:00 01/08/25 06:09 30 MG Potassium Chloride 100 ml @ 50 mls/hr Q2H IV 12/31/24 11:00 12/31/24 14:59 Cancel Sodium Chloride 1 spr QID EACHNOSTRI 01/01/25 18:00 01/07/25 22:10 1 SPR Ondansetron HCl 4 mg Q6HP PRN IV 01/01/25 18:00 01/02/25 15:21 4 MG Promethazine HCl 12.5 mg Q6HP PRN PO 01/01/25 17:00 Spironolactone 25 mg BID@0000,1200 PO 01/03/25 00:00 01/08/25 12:49 25 MG Acetaminophen/ Hydrocodone Bitart 1 tab Q4HP PRN NG 01/02/25 21:15 01/08/25 13:09 1 TAB Apixaban 5 mg BID PO 01/06/25 10:45 01/08/25 10:23 5 MG Lactulose 30 ml DAILY PO 01/06/25 10:45 01/07/25 10:15 30 ML Metoprolol Tartrate 25 mg BID PO 01/06/25 10:45 01/08/25 10:24 25 MG Insulin Glargine 10 units HS SC 01/06/25 22:00 01/07/25 23:47 10 UNITS Prednisone 30 mg DAILY PO 01/07/25 10:00 01/08/25 10:23 30 MG Bumetanide 1 mg DAILY PO 01/08/25 10:00 01/08/25 10:24 1 MG Pantoprazole Sodium 40 mg DAILY@0600 PO 01/09/25 06:00 Mupirocin 1 applic BID EACHNOSTRI 01/08/25 10:24 01/13/25 10:23 01/08/25 13:03 1 APPLIC objective GENERAL: Alert and oriented x 3. No acute distress. Morbidly obese. EYES: PERRL, EOMI. Anicteric. HENT: Moist mucous membranes. LUNGS: Decreased all breath sounds. CARDIOVASCULAR: Regular rate and rhythm. ABDOMEN: Soft, nontender and nondistended. EXTREMITIES: No edema. SKIN: Warm, dry. laboratory and microbiology Laboratory Tests 01/08/25 05:00 Test 01/08/25 05:00 Range/Units Serum Glucose 161 H 74-106 mg/dL Problem List Accidental medication overdose. Acute encephalopathy. Acute respiratory failure. Respiratory acidosis. Right pleural effusion. Leukocytosis Chest pain. Bradycardia. CHF. CAD. Acute renal failure Hyperkalemia. UTI. DM type 2. Hypertension. Morbid obesity. History of CVA. Assessment/Plan Continued all current supportive medical care. Morphine and [place] for pain. Eliquis. Diuretics with Bumex. IV Hydralazine for SBP >150. Metoprolol. GI prophylactics. Additional plan as per the hospital course. Dietary Evaluation Review Comments: 1. Pt is on fat energy support through Propofol of 860 kca, the TF needs to be a low fat, high proteiin formula. Suggest using Vital High Protein @45ml/hr, in 24 hr, pt will receive 1080 kca, 94 g protein, This formula will satisfy pt's protein neeeds at 79% and energy needs at 79% including the 860 kcal provided by Propofol running at 32.6ml/hr. Expected Outcomes/Goals: 1. Reassess protein and energy needs when pt is off vent, based on her true weight without fluid retention and possibably an improved kideny function, 2. Advance to C[facility]-diet with updated protein and energy needs, when medically feasible providing that she passes a [employer] eval. Plan discussed with: Patient FRANTZ HOSKINS MD January 08, 2025 13:40
[2025-01-09] VITALS (11 sets, daily range): BP systolic 112–130; BP diastolic 51–63; PULSE 67–81; RESP 17–19; TEMP 98–98.6; O2SAT 96–100
[2025-01-09] MEDS: PANTOPRAZOLE 40 MG TAB PO SCH (06:23)
[2025-01-09 07:30] LABS: Basophils # (auto) 0.1 10 ^3/uL (0-0.2); Basophils % (auto) 0.4 % (0.0-2.0); Eosinophils # (auto) 0.3 10 ^3/uL (0-0.8); Eosinophils % (auto) 2.2 % (0.0-7.0); Hematocrit 35.6 % (36.0-46.0); Hemoglobin 11.4 g/dL (12.2-16.2); Lymphocytes # (auto) 1.3 10 ^3/uL (0.4-5.4); Lymphocytes % (auto) 10.4 % (10.0-50.0); Mean Corpuscular Hemoglobin 25.1 pg (28.0-32.0); Mean Corpuscular Volume 78.2 fL (80.0-100.0); Monocytes % (auto) 8.3 % (0.0-12.0); Neutrophils # (auto) 9.8 10 ^3/uL (1.6-8.6); Neutrophils % (auto) 78.7 % (37.0-80.0); Nucleated Red Blood Cells % 0.2 %; Platelet Count (auto) 407 10^3/uL (140-450); Red Blood Cells 4.55 10^6/uL (4.0-5.20); Red Cell Distribution Width 19.2 % (11.8-14.3); White Blood Cell 12.4 10^3/uL (4.4-10.8)
[2025-01-09 07:39] LABS: Potassium 3.6 mmol/L (3.5-5.1)
[2025-01-09 07:40] LABS: Anion Gap 9 (5-15); Calcium 10.1 mg/dL (8.7-10.4)
[2025-01-09 07:45] LABS: BUN/Creatinine Ratio 52.1 (10.0-20.0); Carbon Dioxide 35 mmol/L (20-31); Chloride 84 mmol/L (98-107); Sodium 128 mmol/L (136-145)
[2025-01-09 07:46] LABS: Blood Urea Nitrogen 62 mg/dL (9-23); Glucose 169 mg/dL (74-106)
[2025-01-09] MEDS: SPIRONOLACTONE 25 MG TAB PO SCH (09:07)
[2025-01-09] MEDS: predniSONE 20 MG TAB PO SCH (09:11)
[2025-01-09] MEDS ORDERED: FURO1TAB31 PO (12:51)
--- NOTE | 2025-01-09 21:30 | DVHPNRES ---
Progress Note Date Seen: January 09, 2025 Resident Creating Document: JEREMY JI RESIDENT Medical Necessity Reason Pt with a Central, PICC or Fol: Yes The following are medically ne: Mayo Catheter Reason for mayo catheter: Strict I&O Subjective Review of Systems Patient seen and examined at the bedside Patient extubated on 12/28 Alert and oriented x3 Patient diuresing well Reports of back pain Objective vital signs Vital Sign Date Time Temp Pulse Resp B/P (MAP) Pulse Ox O2 Delivery O2 Flow Rate FiO2 01/09/25 14:34 71 01/09/25 13:00 98.4 18 130/63 (85) 99 98.4 01/09/25 10:00 Nasal Cannula* 2 28 Total Intake and Output 01/08/25 01/08/25 01/09/25 15:00 23:00 07:00 Intake Total 1000 ml 400 ml Output Total 900 ml 1000 ml Balance 100 ml -600 ml medications Current Medications Medications Dose Ordered Sig/Julito Route Start Time Stop Time Status Last Admin Dose Admin Potassium Chloride 100 ml @ 50 mls/hr Q2H IV 12/31/24 11:00 12/31/24 14:59 Cancel Examination Examination Constitutional: Patient morbidly obese, on NC, Gen - no pallor, no icterus, no cyanosis, no clubbing, no LAD, trace edema. Skin - Patients skin is warm and dry. HEENT - normocephalic, atraumatic, moist mucous membranes, bleeding seen in the nostrils Neck - full ROM, no LAD, JVD could not be assessed. Pulmonary - B/L diminished breath sounds, no wheezing cardiovascular - variable S1,S2 heard, no added sounds, no murmurs heard. GI - obese, soft abdomen, large area of dark discoloration below the umbilicus Neurological - A/O X 3, following commands and able to move arms with strength 4/5 but weakness in legs, understandable speech, able to swallow laboratory and microbiology Laboratory Tests 01/09/25 07:18 Test 01/09/25 07:18 Range/Units Serum Glucose 169 H 74-106 mg/dL Microbiology Date/Time Source Procedure Growth Status 01/06/25 12:30 Nose MRSA Screen - Final Methicillin Resistant S.aureus Complete 01/01/25 04:30 Sputum Expectorated Sputum Gram Stain - Final Complete 01/01/25 04:30 Respiratory Culture - Final Yeast, not [place] albicans Complete 12/31/24 18:50 Blood Blood Culture - Final NO GROWTH AFTER 5 DAYS OF INCUBATION. Complete 12/31/24 18:30 Urine - Mayo [place] Urine Culture - Final Complete Labs and/or images reviewed: Labs reviewed by me, Image(s) reviewed by me Problem List/Assessment/Plan Problem List/Assessment/Plan Assessment and plan: Neurology Acute metabolic encephalopathy likely due to hypercapnia - extubated on 12/28 Respiratory Acute on chronic hypoxic/hypercarbic respiratory failure likely due to COPD/LAZARA/OHS On mechanical ventilation Severe sepsis with acute organ dysfucntion likely due to pneumonia MRSA and pseudomonas pneumonia Pulmonary edema - sputum cultures growing MRSA and pseudomonas, cleared up - repeat sputum cultures growing asia - diuresis with bumex and spironolactone - prednisone 40mg qd Cardiovascular Acute on chronic heart failure with preserved ejection fraction Severe right ventricular failure with pulm HTN d/t underlying ?left heart failure ?LAZARA ?COPD , unknown chronicity, likely present on admission Pulmonary edema likely due to above Hypertensive heart disease with heart failure Bradycardia with AV block ?accidental medication overdose, junctional rhythm, resolved H/o atrial fibrillation - ECG showed bradycardia with prolonged AK interval - Echo shows LVEF 60% with mod degree LV diastolic dysfucntion, mod dilated LA, moderate degree MR, mod dilated and hypokinetic RV associated Dyskinesis with major RV failure - on Bumex - hydralazine 50 mg t.i.d. and isosorbide dinitrate 30 mg t.i.d. - spironolactone 25mg bid - metoprolol tartrate 25mg bid - eliquis 5mg bid Nephrology VIVI on CKD likely prerenal due to VMN - FENa < 1% - BUN and creatinine improving Endocrinology Insulin-dependent type 2 diabetes mellitus with hyperglycemia - on insulin sliding scale - on pureed diet Infectious disease Sepsis likely due to pneumonia/UTI UTI with long-term indwelling Mayo catheter, with ESBL E.coli present on admission MRSA nares positive - urine culture showed ESBL E.Coli - respiratory culture showed yeast - blood cultures showed growth of staph epidermidis which could be a contaminant, repeat culture negative - mupirocin ointment Diet: pureed diet PUD prophylaxis: Protonix DVT prophylaxis: eliquis right thigh PICC line inserted on 12/27 Mayo's catheter changed on 01/01 Goals of care discussed with the patient's family for over 21 minutes. Full code Plan discussed with Dr. Peace Plan discussed with: Patient, Other My Orders My Orders Orders - JEREMY JI Procedure Category Date Status Time Discharge DISCHARGE 01/09/25 Transmitted 12:48 D/C Picc Line ORDERS 01/09/25 Transmitted 12:52 Dietary Evaluation Review Comments: 1. Pt is on fat energy support through Propofol of 860 kca, the TF needs to be a low fat, high proteiin formula. Suggest using Vital High Protein @45ml/hr, in 24 hr, pt will receive 1080 kca, 94 g protein, This formula will satisfy pt's protein neeeds at 79% and energy needs at 79% including the 860 kcal provided by Propofol running at 32.6ml/hr. Expected Outcomes/Goals: 1. Reassess protein and energy needs when pt is off vent, based on her true weight without fluid retention and possibably an improved kideny function, 2. [facility] with updated protein and energy needs, when medically feasible providing that she passes a [employer] eval. Date of Service: January 09, 2025 Billing Provider: FRANNY PEACE MD Common Visit Codes: [id number] INP/OBS CARE(HIGH) Secondary Visit Codes: [id number] CARE PLAN 30 MINUTES JEREMY JI January 09, 2025 21:30 FRANNY PEACE MD January 11, 2025 22:21
--- NOTE | 2025-01-09 23:23 | DVHPN2 ---
Progress Note - Dictate Date Seen: January 09, 2025 Medical Necessity Reason Pt with a Central, PICC or Fol: Yes The following are medically ne: Mayo Catheter Reason for amyo catheter: Strict I&O Subjective Patient was seen and evaluated in follow up. No overnight events. Patient is complaining of back pain. PT evaluated the patient and initially recommended SNF placement however the patient has utilized all her available SNF days per insurance coverage and will be discharged with services. WBC 12.4, NA 128, CL 84, CO2 35, BUN 62, FLOOR LAYER TILE 1.19. Telemetry reviewed. vital signs Vital Sign Date Time Temp Pulse Resp B/P (MAP) Pulse Ox O2 Delivery O2 Flow Rate FiO2 01/09/25 10:00 96 Nasal Cannula* 2 28 01/09/25 09:10 122/53 01/09/25 09:10 71 01/09/25 09:00 98.6 19 98.6 Total Intake and Output 01/08/25 01/08/25 01/09/25 15:00 23:00 07:00 Intake Total 1000 ml 400 ml Output Total 900 ml 1000 ml Balance 100 ml -600 ml medications Current Medications Medications Dose Ordered Sig/Julito Route Start Time Stop Time Status Last Admin Dose Admin Diagnostic Test (Pha) 1 strip Q6HR 12/15/24 12:00 01/09/25 06:24 1 STRIP Insulin Human Regular Q6HR SC 12/15/24 12:00 01/09/25 06:30 3 UNITS Dextrose 50 ml UD PRN IV 12/15/24 07:00 Ipratropium [place] 0.5 mg Q6HR NEB 12/17/24 00:00 01/09/25 07:01 0.5 MG Albuterol 2.5 mg Q6HR NEB 12/17/24 00:00 01/09/25 07:01 2.5 MG Hydralazine HCl 50 mg TID PO 12/27/24 14:00 01/08/25 22:51 50 MG Sodium Chloride 10 ml QSHIFT@10,22 IV 12/27/24 22:00 01/09/25 09:11 10 ML Acetaminophen 650 mg Q6HP PRN PO 12/28/24 14:45 Isosorbide Dinitrate 30 mg TID PO 12/30/24 14:00 01/08/25 15:27 30 MG Potassium Chloride 100 ml @ 50 mls/hr Q2H IV 12/31/24 11:00 12/31/24 14:59 Cancel Sodium Chloride 1 spr QID EACHNOSTRI 01/01/25 18:00 01/08/25 22:38 1 SPR Ondansetron HCl 4 mg Q6HP PRN IV 01/01/25 18:00 01/02/25 15:21 4 MG Promethazine HCl 12.5 mg Q6HP PRN PO 01/01/25 17:00 Acetaminophen/ Hydrocodone Bitart 1 tab Q4HP PRN NG 01/02/25 21:15 01/08/25 23:36 1 TAB Apixaban 5 mg BID PO 01/06/25 10:45 01/09/25 09:10 5 MG Lactulose 30 ml DAILY PO 01/06/25 10:45 01/07/25 10:15 30 ML Metoprolol Tartrate 25 mg BID PO 01/06/25 10:45 01/09/25 09:10 25 MG Insulin Glargine 10 units HS SC 01/06/25 22:00 01/08/25 23:33 10 UNITS Bumetanide 1 mg DAILY PO 01/08/25 10:00 01/09/25 09:10 1 MG Pantoprazole Sodium 40 mg DAILY@0600 PO 01/09/25 06:00 01/09/25 06:23 40 MG Mupirocin 1 applic BID EACHNOSTRI 01/08/25 10:24 01/13/25 10:23 01/09/25 09:07 1 APPLIC Prednisone 20 mg DAILY PO 01/09/25 10:00 01/09/25 09:11 20 MG Spironolactone 25 mg DAILY PO 01/09/25 08:15 01/09/25 09:07 25 MG objective GENERAL: Alert and oriented x 3. No acute distress. Morbidly obese. EYES: PERRL, EOMI. Anicteric. HENT: Moist mucous membranes. LUNGS: Decreased all breath sounds. CARDIOVASCULAR: Regular rate and rhythm. ABDOMEN: Soft, nontender and nondistended. EXTREMITIES: No edema. SKIN: Warm, dry. laboratory and microbiology Laboratory Tests 01/09/25 07:18 Test 01/09/25 07:18 Range/Units Serum Glucose 169 H 74-106 mg/dL Problem List Accidental medication overdose. Acute encephalopathy. Acute respiratory failure. Respiratory acidosis. Right pleural effusion. Leukocytosis Chest pain. Bradycardia. CHF. CAD. Acute renal failure Hyperkalemia. UTI. DM type 2. Hypertension. Morbid obesity. History of CVA. Assessment/Plan Continued all current supportive medical care. [place] for pain management. Eliquis. Diuretics with Bumex. IV Hydralazine for SBP >150. Metoprolol. GI prophylactics. Additional plan as per the hospital course. Dietary Evaluation Review Comments: 1. Pt is on fat energy support through Propofol of 860 kca, the TF needs to be a low fat, high proteiin formula. Suggest using Vital High Protein @45ml/hr, in 24 hr, pt will receive 1080 kca, 94 g protein, This formula will satisfy pt's protein neeeds at 79% and energy needs at 79% including the 860 kcal provided by Propofol running at 32.6ml/hr. Expected Outcomes/Goals: 1. Reassess protein and energy needs when pt is off vent, based on her true weight without fluid retention and possibably an improved kideny function, 2. 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 Plan discussed with: Patient FRANTZ HOSKINS MD January 09, 2025 12:02
== END 2025-01-09 16:22 | disposition home health service (06) | DRG 870 ==
LOC: ER 18:12 → EDBD 18:12 → OVERFLOW 12-15 06:46 → ICU WEST 12-15 11:45 → TELE-CENTR 01-02 20:20
PROVIDERS: ADMIT Internal Medicine; ATTEND Internal Medicine
PROC: 0BH17EZ Insertion of Endotracheal Airway into Trachea, Via Natural or Artificial Opening (ICD-10-PCS; principal; 2024-12-15)
PROC: 5A1955Z Respiratory Ventilation, Greater than 96 Consecutive Hours (ICD-10-PCS; 2024-12-15)
PROC: 02HV33Z Insertion of Infusion Device into Superior Vena Cava, Percutaneous Approach (ICD-10-PCS; 2024-12-15)
PROC: 0BH17EZ Insertion of Endotracheal Airway into Trachea, Via Natural or Artificial Opening (ICD-10-PCS; 2024-12-23)
PROC: 5A09357 Assistance with Respiratory Ventilation, Less than 24 Consecutive Hours, Continuous Positive Airway Pressure (ICD-10-PCS; 2024-12-23)
PROC: 02HV33Z Insertion of Infusion Device into Superior Vena Cava, Percutaneous Approach (ICD-10-PCS; 2024-12-27)
PROC: B548ZZA Ultrasonography of Superior Vena Cava, Guidance (ICD-10-PCS; 2024-12-27)
PROC: 5A09357 Assistance with Respiratory Ventilation, Less than 24 Consecutive Hours, Continuous Positive Airway Pressure (ICD-10-PCS; 2024-12-31)
DX: A41.02 Sepsis due to Methicillin resistant Staphylococcus aureus (principal); J96.22 Acute and chronic respiratory failure with hypercapnia; J96.21 Acute and chronic respiratory failure with hypoxia; N17.0 Acute kidney failure with tubular necrosis; I50.33 Acute on chronic diastolic (congestive) heart failure; J15.212 Pneumonia due to Methicillin resistant Staphylococcus aureus; G92.8 Other toxic encephalopathy; R65.21 Severe sepsis with septic shock; T83.518A Infection and inflammatory reaction due to other urinary catheter, initial encounter; E87.29 Other acidosis; I13.0 Hypertensive heart and chronic kidney disease with heart failure and stage 1 through stage 4 chronic kidney disease, or unspecified chronic kidney disease; J44.1 Chronic obstructive pulmonary disease with (acute) exacerbation; E66.2 Morbid (severe) obesity with alveolar hypoventilation; E87.4 Mixed disorder of acid-base balance; Z68.45 Body mass index [BMI] 70 or greater, adult; J44.0 Chronic obstructive pulmonary disease with (acute) lower respiratory infection; I16.1 Hypertensive emergency; K92.0 Hematemesis; T50.991A Poisoning by other drugs, medicaments and biological substances, accidental (unintentional), initial encounter; E87.5 Hyperkalemia; E11.65 Type 2 diabetes mellitus with hyperglycemia; N18.9 Chronic kidney disease, unspecified; E11.22 Type 2 diabetes mellitus with diabetic chronic kidney disease; D63.1 Anemia in chronic kidney disease; I50.82 Biventricular heart failure; I25.10 Atherosclerotic heart disease of native coronary artery without angina pectoris; I48.91 Unspecified atrial fibrillation; I27.22 Pulmonary hypertension due to left heart disease; R04.0 Epistaxis; Z98.61 Coronary angioplasty status; Z86.73 Personal history of transient ischemic attack (TIA), and cerebral infarction without residual deficits; Z79.4 Long term (current) use of insulin; Z79.01 Long term (current) use of anticoagulants; Z79.84 Long term (current) use of oral hypoglycemic drugs; Z79.82 Long term (current) use of aspirin; Z79.899 Other long term (current) drug therapy; Z99.3 Dependence on wheelchair; Y92.89 Other specified places as the place of occurrence of the external cause
CPT/HCPCS: 31500; 36415; 36556; 36569; 36600; 70450; 71045; 73590; 76775; 76937; 80048; 80053; 80061; 80307; 80329; 81001; 82306; 82550; 82570; 82805; 82962; 83036; 83605; 83690; 83735; 83880; 83970; 84100; 84132; 84156; 84300; 84443; 84484; 85025; 85610; 85730; 87040; 87070; 87077; 87081; 87086; 87088; 87186; 87205; 92610; 93005; 93306; 94002; 94003; 94640; 94660; 96374; 96375; 97110; 97163; 97530; 99291; G0378; J0171; J1815; J2003; J2185; J2248; J2405; J2470; J2704; J3480; J7042; Q9956

== ENCOUNTER 2025-01-15 11:57 | Emergency (ER) | payer MEDICARE, MEDICAID ==
[~2025-01-15] VITALS: Ht 167.6 cm; Wt 159.0 kg
[~2025-01-15 11:57] MED LIST: ALPR0.5T8 PO; AMIO200T13 PO; APIX5TAB PO; ASPI-325 PO; ATOR-507 PO; FURO1TAB31 PO; ISOS1TAB37 PO; MECL-90 PO; METO25TA5 PO; PRED20TA2 PO; RIV20T PO; SPIR25TA8 PO
[2025-01-15 14:19] VITALS: BP 103/58; PULSE 64; RESP 16; TEMP 98.3; O2SAT 98
[2025-01-15 14:46] LABS: Urine Bacteria FEW /hpf (None Seen); Urine Blood TRACE /uL (Negative); Urine Clarity Clear (Clear); Urine Color Light-Yellow (Yellow); Urine Protein, UAD Negative (Negative); Urine Squamous Epithelial Cell FEW /hpf (<5); Urine Urobilinogen Normal (Negative); Urine WBC 37 /HPF (0-5); Urine pH 5.5 (5.0-9.0)
== END 2025-01-15 15:01 | disposition left against medical advice (07) ==
LOC: EDBD 11:57 → ER 12:02
DX: Z44.8 Encounter for fitting and adjustment of other external prosthetic devices (principal); Z53.21 Procedure and treatment not carried out due to patient leaving prior to being seen by health care provider
CPT/HCPCS: 81001

== ENCOUNTER 2025-02-03 13:45 | Inpatient (IN) | payer MEDICARE, MEDICAID ==
[~2025-02-03] VITALS: Ht 172.7 cm; Wt 174.8 kg
--- NOTE | 2025-02-03 14:27 | ED.PDOC ---
History of Present Illness HPI Comments 59-year-old female brought in by ambulance with primary care history of asthma, COPD, diabetes, CHF, hypertension, CVA, [place], intubated before do from CHF and the chief complaint of chest pain. EMS report that the patient inform them that she was at home last night when she had a sudden onset kind of pressure-like chest pain 2200 which was nonradiating. Home nurse informed the patient to call EMS due from the patient having low blood pressure of 94 systolic. Patient had chest pain type on scene of a 05/14. Patient notes on being intubated one month ago. Denies chills, fever, N/V/D, SOB. No other associated symptoms, modifiers, recent injuries or sick contacts present at this time. Time Seen by MD: 13:50 Primary Care Provider: CHRISTIAN Reviewed Notes: Nurses Notes, Bulk Cooler Installer Notes, Medications, Allergies Allergies: Coded Allergies: Penicillins (Verified Allergy, Unknown, 01/15/25) Home Meds Active Scripts Furosemide (Lasix) 40 Mg Tab, 40 MG PO BID for 30 Days, #60 TAB 1 [facility] 01/09/25 Apixaban Base (ELIQUIS) 5 Mg Tab, 5 MG PO BID for 30 Days, #60 TAB 2 Refills [facility] 01/08/25 Isosorbide Dinitrate (Isosorbide Dinitrate) 30 Mg Tab, 30 MG PO TID for 30 Days, #90 TAB Prov:[facility]ENSHANNAN [facility] 01/08/25 Metoprolol Tartrate (Metoprolol Tartrate) 25 Mg Tab, 1 TAB PO BID for 30 Days, #60 TAB 1 Refill Prov:[facility] 01/08/25 Spironolactone (Spironolactone) 25 Mg Tab, 1 TAB PO DAILY for 30 Days, #30 TAB 1 Refill Prov:[facility] 01/08/25 Prednisone (Prednisone) 20 Mg Tab, 20 MG PO DAILY for 5 Days, #5 MG Prov:[facility]SHANNAN [facility] 01/08/25 Reported Medications Meclizine Hcl (Meclizine Hcl) 25 Mg Tab, 25 MG PO BIDP PRN for DIZZINESS for 30 Days, MG 12/16/24 Atorvastatin Calcium (Lipitor) 40 Mg Tab, 40 MG PO, TAB 12/16/24 Prednisone (Prednisone) 20 Mg Tab, 1 TAB PO DAILY 12/16/24 Rivaroxaban (Xarelto Tablet) 20 Mg Tb, 1 TAB PO DAILY 12/15/24 Alprazolam (Alprazolam) 0.5 Mg Tab, 1 TAB PO QID PRN for ANXIETY 12/15/24 Amiodarone HCl (Amiodarone HCl) 200 Mg Tab, 1 TAB PO BID 12/15/24 Aspirin (Aspirin Low Dose) 81 Mg Tab, 1 TAB PO DAILY 12/15/24 Information Source: Patient, Emergency Med Personnel Mode of Arrival: EMS Severity: Moderate Timing: Hours Duration: Since onset, Hours Prehospital treatment: None Past Medical History PAST MEDICAL HISTORY: Asthma, CHF, COPD, CVA, DM, HTN, [place] Past Medical History (Other): Intubated one month ago do from CHF Surgical History: Denies all surgeries FOREIGN EXCHANGE TRADER History: Denies all FOREIGN EXCHANGE TRADER Hx Family History Family History: Reviewed,noncontributory to illness, Unknown Social History Smoker: Non-Smoker Alcohol: Denies ETOH Use Drugs: Denies Drug Use Lives In: Home Constitutional: reports: others (Low blood Pressure); denies: chills, diaphoresis, fatigue, fever, malaise, sweats, weakness EENTM: denies: blurred vision, double vision, ear bleeding, ear discharge, ear drainage, ear pain, ear ringing, eye pain, eye redness, hearing loss, mouth pain, mouth swelling, nasal discharge, nose bleeding, nose congestion, nose pain, photophobia, tearing, throat pain, throat swelling, voice changes, others Respiratory: denies: cough, hemoptysis, orthopnea, SOB at rest, shortness of breath, SOB with excertion, stridor, wheezing, others Cardiovascular: reports: chest pain; denies: dizzy spells, diaphoresis, Dyspnea on exertion, edema, irregular heart beat, left arm pain, lightheadedness, palpitations, PND, syncope, others Gastrointestinal: denies: abdomen distended, abdominal pain, blood streaked bowels, constipated, diarrhea, dysphagia, difficulty swallowing, hematemesis, melena, nausea, poor appetite, poor fluid intake, rectal bleeding, rectal pain, vomiting, others Genitourinary: denies: abnormal vagina bleeding, burning, dyspareunia, dysuria, flank pain, frequency, hematuria, incontinence, pain, , vagina discharge, urgency, others Neurological: denies: dizziness, fainting, headache, left sided numbness, left sided weakness, numbness, paresthesia, pre-existing deficit, right sided numbness, right sided weakness, seizure, speech problems, tingling, tremors, weakness, others Musculoskeletal: denies: back pain, gout, joint pain, joint swelling, muscle pain, muscle stiffness, neck pain, others Integumetry: denies: bruises, change in color, change in hair/nails, dryness, laceration, lesions, lumps, rash, wounds, others Allergic/Immunocompromised: denies: Difficulty Healing, Frequent Infections, Hives, Itching, others Hematologic/Lymphatic: denies: anemia, blood clots, easy bleeding, easy bruising, swollen glands, others Endocrine: denies: excessive hunger, excessive sweating, excessive thirst, excessive urination, flushing, intolerance to cold, intolerance to heat, unexplained weight gain, unexplained weight loss, others Psychiatric: denies: anxiety, bipolar disorder, depression, hopeless, panic disorder, schizophrenia, sleepless, suicidal, others All Other Systems: Reviewed and Negative Physical Exam General Appearance: Moderate Distress, Normal HEENT: Normal ENT Inspection, Pharynx Normal, TMs Normal Neck: Full Range of Motion, Non-Tender, Normal, Normal Inspection Respiratory: Chest Non-Tender, Lungs Clear, No Accessory Muscle Use, No Respiratory Distress, Normal Breath Sounds Cardiovascular: No Edema, No JVD, No Murmur, No Gallop, Normal Peripheral Pulses, Regular Rate/Rhythm Breast Exam: Deferred Gastrointestinal: No Organomegaly, Non Tender, No Pulsatile Mass, Normal Bowel Sounds, Soft Genitalia: Deferred Pelvic: Deferred Rectal: Deferred Extremities: Decreased range of motion, No calf tenderness, Normal capillary refill, Non-tender Musculoskeletal : Apperance: Normal Neurologic: Alert, polysomnography tech II-XII nml as Tested, No Motor Deficits, Normal Affect, Normal Mood, No Sensory Deficits Cerebellar Function: NOT DONE Reflexes: NOT DONE Skin: Dry, Normal Color, Warm Peripheral Pulses: 3+ Radial (R), 3+ Radial (L) Lymphatic: No Adenopathy Was a procedure done? Was a procedure done?: No Differential Dx Considerations may include: Sepsis Electrolyte imbalance X-Ray, Labs, Meds, VS Vital Signs Date Time Temp Pulse Resp B/P (MAP) Pulse Ox O2 Delivery O2 Flow Rate FiO2 02/03/25 13:50 98.3 81 14 99/34 (55) 98 98.3 02/03/25 13:47 64 Lab Test 02/03/25 14:30 Range/Units White Blood Count 15.7 H 4.4-10.8 10^3/uL Red Blood Count 4.32 4.0-5.20 10^6/uL Hemoglobin 10.8 L 12.2-16.2 g/dL Hematocrit 34.5 L 36.0-46.0 % Mean Corpuscular Volume 79.9 L 80.0-100.0 fL Mean Corpuscular Hemoglobin 24.9 L 28.0-32.0 pg Mean Corpuscular Hemoglobin Concent 31.2 L 32.0-36.0 g/dL Red Cell Distribution Width 18.6 H 11.8-14.3 % Platelet Count 411 140-450 10^3/uL Mean Platelet Volume 7.5 6.9-10.8 fL Neutrophils (%) (Auto) 87.6 H 37.0-80.0 % Lymphocytes (%) (Auto) 5.4 L 10.0-50.0 % Monocytes (%) (Auto) 6.4 0.0-12.0 % Eosinophils (%) (Auto) 0.3 0.0-7.0 % Basophils (%) (Auto) 0.3 0.0-2.0 % Neutrophils # (Auto) 13.7 H 1.6-8.6 10 ^3/uL Lymphocytes # (Auto) 0.9 0.4-5.4 10 ^3/uL Monocytes # (Auto) 1.0 0-1.3 10 ^3/uL Eosinophils # (Auto) 0 0-0.8 10 ^3/uL Basophils # (Auto) 0 0-0.2 10 ^3/uL Nucleated Red Blood Cells 0.1 % Sodium Level 137 136-145 mmol/L Potassium Level 3.9 3.5-5.1 mmol/L Chloride Level 98 98-107 mmol/L Carbon Dioxide Level 35 H 20-31 mmol/L Anion Gap 4 L 5-15 Blood Urea Nitrogen 23 9-23 mg/dL Creatinine 1.31 H 0.550-1.02 mg/dL Glomerular Filtration Rate Calc 46 >90 mL/min BUN/Creatinine Ratio 17.6 10.0-20.0 Serum Glucose 177 H 74-106 mg/dL Calcium Level 9.8 8.7-10.4 mg/dL Troponin I High Sensitivity 17 </=34 ng/L Patient alert. Complaining of chest pain. Was seen here previously. Vitals stable. Blood sugar elevated. WBC elevated. Severe anemia. Continues to have chest pain. Was given nitro. EKG reviewed does show old changes. Cardiology consultation. Blood pressure slightly low. Establish intravenous access. Was given fluids. Cardiac marker within normal limits. Explained to the patient. Continue monitoring. Time of 1ST Reevaluation: 14:20 Reevaluation 1ST: Unchanged Patient Education/Counseling: Diagnosis, Treatment, Prognosis Family Education/Counseling: No Family Present Departure 1 Departure Time of Disposition: 15:52 Impression: Primary Impression: Chest pain of unknown etiology Additional Impressions: Symptomatic anemia Uncontrolled diabetes mellitus Qualified Codes: E13.65 - Other specified diabetes mellitus with hyperglycemia Disposition: ADMITTED INPATIENT Admit to: Med Surg Condition: Guarded Critical Care Note Critical Care Time?: No Stability Stability form required: No Heart Score Heart Score: Heart Score Response (Comments) Value History Slightly Suspicious 0 EKG Normal 0 Age 45-64 1 Risk Factors >3 or Hx ASHD 2 Troponin Normal limit 0 Total 3 I personally scribed for ROLAND ALVARADO MD ([email or web address]) on 02/03/25 at 14:27. Electronically submitted by Jean Marie Gonzalez ([email or web address]). ROLAND ALVARADO MD Feb 03, 2025 14:27
[2025-02-03 14:53] LABS: Hemoglobin 10.8 g/dL (12.2-16.2); Lymphocytes # (auto) 0.9 10 ^3/uL (0.4-5.4); Nucleated Red Blood Cells % 0.1 %
[2025-02-03 14:56] LABS: Basophils # (auto) 0 10 ^3/uL (0-0.2); Basophils % (auto) 0.3 % (0.0-2.0); Eosinophils # (auto) 0 10 ^3/uL (0-0.8); Eosinophils % (auto) 0.3 % (0.0-7.0); Hematocrit 34.5 % (36.0-46.0); Lymphocytes % (auto) 5.4 % (10.0-50.0); Mean Corpuscular Hemoglobin 24.9 pg (28.0-32.0); Mean Corpuscular Hgb Conc. 31.2 g/dL (32.0-36.0); Mean Corpuscular Volume 79.9 fL (80.0-100.0); Monocytes % (auto) 6.4 % (0.0-12.0); Neutrophils # (auto) 13.7 10 ^3/uL (1.6-8.6); Neutrophils % (auto) 87.6 % (37.0-80.0); Platelet Count (auto) 411 10^3/uL (140-450); Red Blood Cells 4.32 10^6/uL (4.0-5.20); Red Cell Distribution Width 18.6 % (11.8-14.3); White Blood Cell 15.7 10^3/uL (4.4-10.8)
[2025-02-03 15:05] LABS: Potassium 3.9 mmol/L (3.5-5.1); Sodium 137 mmol/L (136-145)
[2025-02-03 15:06] LABS: Anion Gap 4 (5-15); Calcium 9.8 mg/dL (8.7-10.4); Carbon Dioxide 35 mmol/L (20-31); Chloride 98 mmol/L (98-107)
[2025-02-03 15:11] LABS: BUN/Creatinine Ratio 17.6 (10.0-20.0); Blood Urea Nitrogen 23 mg/dL (9-23); Glucose 177 mg/dL (74-106)
[2025-02-03] MEDS: NITROGLYCERIN 0.4 MG SL TAB SL ONE (16:57)
[2025-02-03 16:58] LABS: Urine Bacteria FEW /hpf (None Seen); Urine Blood TRACE /uL (Negative); Urine Budding Yeast MANY /hpf (None Seen); Urine Clarity Ex.Turbid (Clear); Urine Color Light-Orange (Yellow); Urine Mucus FEW (None Seen); Urine Protein, UAD 1+ (Negative); Urine Specific Gravity 1.017 (1.001-1.035); Urine Squamous Epithelial Cell FEW /hpf (<5); Urine Urobilinogen 2 mg/dL (Negative); Urine WBC 285 /HPF (0-5); Urine WBC Clumps PRESENT /hpf (None Seen); Urine pH 5.5 (5.0-9.0)
[2025-02-03] MEDS ORDERED: DEXTROSE (50%) 50ML SYRG IV PRN (18:15)
[2025-02-03] MEDS ORDERED: ALPRAZolam 0.5 MG TAB PO PRN (18:15)
[2025-02-03] MEDS ORDERED: ACETAMINOPHEN 325 MG TAB PO PRN (18:15)
[2025-02-03] MEDS ORDERED: DOCUSATE SOD 100 MG CAP PO PRN (18:15)
[2025-02-03] MEDS: SODIUM CHLORIDE 0.9% 1,000 ML IV ONE (18:20)
[2025-02-03] MEDS: levoFLOXacin 500MG 100 ML IV ONE (18:29)
--- NOTE | 2025-02-03 19:28 | DVHHP2 ---
History of Present Illness Reason for Visit: Chest pain of unknown etiology History of Present Illness The patient is a 59-year-old female morbidly obese with past medical history of CHF, COPD, CVA, asthma, DM, [place], and hypertension who presented to [facility] ED with complaint of chest pain. Patient reports having sudden onset pressure-like chest pain, nonradiating, rating 9/10 numeric scale, associated shortness of breaths, getting worse that prompted this visit. Patient was seen and evaluated in the ED, laboratory data shows WBC 15.7, hemoglobin 10.8, hematocrit 34.5, platelets 411, sodium 137, potassium 3.9, BUN 23, creatinine 1.31, glucose 177, troponin 15, blood pressure 118/31, heart rate 81, temperature 98.3 F, O2 saturation 96% on oxygen. Urinalysis positive for urinary tract infection. Patient was started on IV antibiotic regimen levofloxacin, please see medication orders section in the computer. On my assessment, patient denied chest pain, no headache, no dizziness, no diaphoresis, currently on oxygen, no diarrhea, no nausea, no vomiting, no fever, no chills. Patient was admitted for further evaluation and medical management. Past Medical History Obesity, Asthma, CHF, COPD, CVA, DM, HTN, [place] Past Surgical History Denies all surgeries Family History Reviewed, noncontributory to the management of this case. Past Social History The patient lives at home, denies smoking, alcohol or illicit drugs abuse. Review of Systems Constitutional: Yes: Weakness; No: Fever, Chills, Sweats, Malaise, Other Eyes: No: Pain, Vision change, Conjunctivae inflammation, Eyelid inflammation, Other, Redness ENT: No: Ear pain, Ear discharge, Nose pain, Nose discharge, Nose congestion, Mouth pain, Mouth swelling, Throat pain, Throat swelling, Other Respiratory: Shortness of breath; No: Cough, Dry, SOB with excertion, Wheezing, Hemoptysis, Pleuritic Pain, Sputum, Wheezing, Other Cardiovascular: Chest Pain; No: Palpitations, Orthopnea, Paroxysmal Noc. Dyspnea, Edema, Lt Headedness, Other Gastrointestinal: No: Nausea, Vomiting, Abdominal Pain, Diarrhea, Constipation, Melena, Hematochezia, Other Genitourinary: No Dysuria, No Frequency, No Incontinence, No Hematuria, No Retention, No Other Musculoskeletal: No: other, neck pain, shoulder pain, arm pain, back pain, hand pain, leg pain, foot pain Skin: No: Rash, Lesions, Jaundice, Bruising, Other Neurological: No: Weakness, Numbness, Incoordination, Change in speech, Confusion, Seizures, Other Allergies: Coded Allergies: Penicillins (Verified Allergy, Unknown, 01/15/25) Medications Current Medications Medications Dose Ordered Sig/Julito Route Start Time Stop Time Status Last Admin Dose Admin Aspirin 81 mg DAILY PO 02/04/25 10:00 Levofloxacin/ Dextrose 100 ml @ 100 mls/hr DAILY IV 02/04/25 10:00 Atorvastatin Calcium 20 mg HS PO 02/03/25 22:00 Diagnostic Test (Pha) 1 strip ACHS 02/03/25 22:00 Insulin Human Regular HS SC 02/03/25 22:00 Insulin Human Regular AC SC 02/04/25 07:00 Dextrose 50 ml UD PRN IV 02/03/25 18:15 Sodium Chloride 10 ml Q8HR IV 02/03/25 22:00 Acetaminophen/ Hydrocodone Bitart 1 tab Q4HP PRN PO 02/03/25 18:15 Ondansetron HCl 4 mg Q4HP PRN IV 02/03/25 18:15 Docusate Sodium 100 mg BIDPRN PRN PO 02/03/25 18:15 Acetaminophen 650 mg Q6HP PRN PO 02/03/25 18:15 Alprazolam 0.5 mg Q8HPRN PRN PO 02/03/25 18:15 Exam Vital Signs Vital Signs Date Time Temp Pulse Resp B/P (MAP) Pulse Ox O2 Delivery O2 Flow Rate FiO2 02/03/25 18:59 123/52 02/03/25 18:00 61 17 100 02/03/25 14:20 97.8 97.8 02/03/25 14:20 Nasal Cannula* 4 36 General Appearance: Alert, Oriented X3, Cooperative, No acute distress HEENT: Atraumatic, PERRLA, EOMI, Mucous membr. moist/pink Respiratory: Normal air movement Cardiovascular: Regular rate, Normal S1, Normal S2, No murmurs Abdominal: Normal bowel sounds, Soft, No tenderness, No hepatospenomegaly, No masses Extremities: No clubbing, No cyanosis, No edema, Normal pulses, No tenderness/swelling Skin: No rashes, No breakdown, No significant lesion Neuro: Normal speech, Normal tone, Sensation intact, Cranial nerves 3-12 NL, Reflexes 2+, Other (Generalized weakness) Psych/Mental Status: Mental status NL, Mood NL Labs/Xrays Labs Test 02/03/25 17:50 02/03/25 16:11 02/03/25 14:30 Range/Units Troponin I High Sensitivity 13 </=34 ng/L Urine Color Light-orange Yellow Urine Clarity Ex.turbid Clear Urine pH 5.5 5.0-9.0 Urine Specific [place] 1.017 1.001-1.035 Urine Protein 1+ H Negative Urine Ketones Negative Negative Urine Blood Trace H Negative /uL Urine Nitrite Negative Negative Urine Bilirubin Negative Negative Urine Urobilinogen 2 H Negative mg/dL Urine Leukocyte Esterase 3+ Negative /uL Urine RBC 88 0 - 4 /hpf Urine WBC Clumps Present None Seen /hpf Urine Microscopic WBC 285 H 0-5 /HPF Urine Squamous Epithelial Cells Few <5 /hpf Urine Calcium Oxalate Crystals Few None Seen Urine Bacteria Few H None Seen /hpf Urine Mucus Few None Seen Urine Yeast (Budding) Many None Seen /hpf Urine Glucose Normal Normal mg/dL White Blood Count 15.7 H 4.4-10.8 10^3/uL Red Blood Count 4.32 4.0-5.20 10^6/uL Hemoglobin 10.8 L 12.2-16.2 g/dL Hematocrit 34.5 L 36.0-46.0 % Mean Corpuscular Volume 79.9 L 80.0-100.0 fL Mean Corpuscular Hemoglobin 24.9 L 28.0-32.0 pg Mean Corpuscular Hemoglobin Concent 31.2 L 32.0-36.0 g/dL Red Cell Distribution Width 18.6 H 11.8-14.3 % Platelet Count 411 140-450 10^3/uL Mean Platelet Volume 7.5 6.9-10.8 fL Neutrophils (%) (Auto) 87.6 H 37.0-80.0 % Lymphocytes (%) (Auto) 5.4 L 10.0-50.0 % Monocytes (%) (Auto) 6.4 0.0-12.0 % Eosinophils (%) (Auto) 0.3 0.0-7.0 % Basophils (%) (Auto) 0.3 0.0-2.0 % Neutrophils # (Auto) 13.7 H 1.6-8.6 10 ^3/uL Lymphocytes # (Auto) 0.9 0.4-5.4 10 ^3/uL Monocytes # (Auto) 1.0 0-1.3 10 ^3/uL Eosinophils # (Auto) 0 0-0.8 10 ^3/uL Basophils # (Auto) 0 0-0.2 10 ^3/uL Nucleated Red Blood Cells 0.1 % Sodium Level 137 136-145 mmol/L Potassium Level 3.9 3.5-5.1 mmol/L Chloride Level 98 98-107 mmol/L Carbon Dioxide Level 35 H 20-31 mmol/L Anion Gap 4 L 5-15 Blood Urea Nitrogen 23 9-23 mg/dL Creatinine 1.31 H 0.550-1.02 mg/dL Glomerular Filtration Rate Calc 46 >90 mL/min BUN/Creatinine Ratio 17.6 10.0-20.0 Serum Glucose 177 H 74-106 mg/dL Calcium Level 9.8 8.7-10.4 mg/dL Assessment/Plan Assessment/Plan Chest pain of unknown etiology Symptomatic anemia Morbid obesity Urinary tract infection Leukocytosis, unspecified Uncontrolled diabetes mellitus Acute respiratory distress Other specified diabetes mellitus with hyperglycemia Plan 1. Admit to telemetry units 2. Breathing treatment 3. Pain control management 4. Management of fluids and electrolytes 5. Consultation for hospitalist 6. Diagnostic tests chest x-ray 7. DVT prophylaxis-on aspirin 8. Repeat labs CBC, CMP in a.m. 9. Continue with current medical management 10. Treatment plan discussed with patient and RN. Patient verbalized understanding. Plan discussed with: Patient, Other (RN) My Orders Orders - TAMIKO QUINONES DNP Procedure Category Date Status Time Urine Bacterial ANIYA 02/03/25 In Process Culture 18:02 Aspirin Tablet PHA 02/04/25 In Process 10:00 Levofloxacin 500mg PHA 02/04/25 In Process (Levaquin 500mg/ 100m 10:00 Atorvastatin (Lipitor) PHA 02/03/25 In Process 22:00 Consistent DIET 02/03/25 Transmitted Carb(Ccho)Diabetes Dinner Glucose Blood PHA 02/03/25 In Process (Accu-Chek Comfort 22:00 Insulin R (Human) PHA 02/03/25 In Process (Insulin R) 22:00 Insulin R (Human) PHA 02/04/25 In Process (Insulin R) 07:00 Dextrose 50% Syringe PHA 02/03/25 In Process 18:15 Allergies TORRES 02/03/25 In Process 18:02 Code Status CODE 02/03/25 Transmitted 18:02 Sodium Chloride Lock PHA 02/03/25 In Process (Saline Lock Ns) 22:00 Oxygen Per Hour RT 02/03/25 Transmitted 18:02 Hydrocodone-Acet PHA 02/03/25 In Process 5/325mg Tab ([place] 18:15 Ondansetron Hcl PHA 02/03/25 In Process (Zofran) 18:15 Docusate Sodium PHA 02/03/25 In Process Capsule (Colace 18:15 Complete Blood Count LAB 02/04/25 Verified 04:00 Comprehensive LAB 02/04/25 Verified Metabolic Panel 04:00 Condition: Serious TORRES 02/03/25 In Process 18:02 Acetaminophen Tablet PHA 02/03/25 In Process (Tylenol Tablet) 18:15 Bedrest With Bathroom TORRES 02/03/25 In Process Privileg 18:02 Maintain Bed Rest TORRES 02/03/25 In Process 18:02 Sequential TORRES 02/03/25 In Process Compression Device Alprazolam Tablet PHA 02/03/25 In Process (Xanax Tablet) 18:15 Problem List: (1) Chest pain of unknown etiology (2) Symptomatic anemia (3) Morbid obesity (4) Uncontrolled diabetes mellitus (5) Acute respiratory distress (6) Leukocytosis, unspecified (7) Urinary tract infection (8) Other specified diabetes mellitus with hyperglycemia Date of Service: Feb 03, 2025 Billing Provider: TAMIKO QUINONES DNP Common Visit Codes: [id number] INP/OBS CARE (HIGH) TAMIKO QUINONES DNP Feb 03, 2025 19:27
[2025-02-03 19:30] VITALS: PULSE 63; O2SAT 100
[2025-02-03] MEDS ORDERED: MORPHINE SULFATE INJ 2 MG/ml SYRG IV PRN (19:30)
[2025-02-03] MEDS ORDERED: NITROGLYCERIN 0.4 MG SL TAB SL PRN (19:30)
[2025-02-03] MEDS: HYDROcodone-ACET 5/325MG TAB PO PRN (19:40)
[2025-02-03] MEDS ORDERED: HYDROcodone-ACET 10/325MG TAB PO ONE (19:45)
[2025-02-03] MEDS: ONDANSETRON HCL 4 MG/2 ML VIAL IV PRN (20:39)
[2025-02-03] MEDS: HYDROcodone-ACET 10/325MG TAB PO PRN (20:47)
[2025-02-03] MEDS: InsuLIN REG 1unit/0.01ml Soln (100units/ml) SC SCH (22:00)
[2025-02-03] MEDS: ACCU-CHEK COMFORT CURVE STRIP VI SCH (22:00)
[2025-02-03 23:18] VITALS: BP 116/44; PULSE 62; RESP 17; RESP 19; TEMP 97.9; O2SAT 100; O2SAT 99
[2025-02-03 23:30] VITALS: BP 116/44; PULSE 62; RESP 19; TEMP 97.9; O2SAT 100
[2025-02-04] MEDS ORDERED: ONDA-188 PO (00:01)
[2025-02-04] MEDS ORDERED: POTA1TAB4 PO (00:01)
[2025-02-04] MEDS ORDERED: BUSP15TA60 PO (00:01)
[2025-02-04] MEDS ORDERED: FLUT50SP NAS (00:01)
[2025-02-04] MEDS ORDERED: LOSA-534 PO (00:01)
[2025-02-04] MEDS ORDERED: FURO80TA3 PO (00:01)
[2025-02-04] MEDS ORDERED: SIMV40TA18 PO (00:01)
[2025-02-04] MEDS ORDERED: TRAZ-228 PO (00:01)
[2025-02-04] MEDS ORDERED: METO1TAB9 PO (00:01)
[2025-02-04] MEDS: SODIUM CHLOR 0.9% PF (SALINE LOCK) 10ML VIAL/SYR IV SCH (00:10)
[2025-02-04] MEDS: ATORVASTATIN 20 MG TAB PO SCH (00:11)
[2025-02-04 05:00] VITALS: BP 102/37; PULSE 65; RESP 19; TEMP 98.3; O2SAT 98
[2025-02-04] MEDS: InsuLIN REG 1unit/0.01ml Soln (100units/ml) SC SCH (05:52)
[2025-02-04 07:10] LABS: Alanine Aminotransferase 27 U/L (7-40); Alkaline Phosphatase 111 U/L (46-116); Anion Gap 8 (5-15); Basophils # (auto) 0 10 ^3/uL (0-0.2); Basophils % (auto) 0.3 % (0.0-2.0); Blood Urea Nitrogen 21 mg/dL (9-23); Calcium 9.4 mg/dL (8.7-10.4); Eosinophils # (auto) 0.2 10 ^3/uL (0-0.8); Eosinophils % (auto) 1.4 % (0.0-7.0); Hematocrit 33.5 % (36.0-46.0); Hemoglobin 10.4 g/dL (12.2-16.2); Lymphocytes # (auto) 0.8 10 ^3/uL (0.4-5.4); Lymphocytes % (auto) 6.9 % (10.0-50.0); Mean Corpuscular Hgb Conc. 31.1 g/dL (32.0-36.0); Mean Corpuscular Volume 80.3 fL (80.0-100.0); Monocytes # (auto) 1.2 10 ^3/uL (0-1.3); Monocytes % (auto) 10.3 % (0.0-12.0); Neutrophils # (auto) 9.1 10 ^3/uL (1.6-8.6); Neutrophils % (auto) 81.1 % (37.0-80.0); Platelet Count (auto) 359 10^3/uL (140-450); Potassium 3.9 mmol/L (3.5-5.1); Red Blood Cells 4.17 10^6/uL (4.0-5.20); Red Cell Distribution Width 18.5 % (11.8-14.3); Sodium 137 mmol/L (136-145); White Blood Cell 11.2 10^3/uL (4.4-10.8)
[2025-02-04 07:12] LABS: Albumin 3.8 g/dL (3.2-4.8); Aspartate Aminotransferase 24 U/L (13-40)
[2025-02-04 07:16] LABS: Bilirubin, Total 0.3 mg/dL (0.2-1.0); Carbon Dioxide 32 mmol/L (20-31); Chloride 97 mmol/L (98-107); Glucose 113 mg/dL (74-106)
[2025-02-04 08:00] VITALS: PULSE 67; PULSE 68; RESP 17; O2SAT 100
[2025-02-04 09:00] VITALS: BP 124/47; PULSE 67; RESP 17; TEMP 98.6; O2SAT 100
[2025-02-04] MEDS: ASPirin 81 mg TAB PO SCH (09:01)
[2025-02-04] MEDS: levoFLOXacin 500MG 100 ML IV SCH (09:01)
--- NOTE | 2025-02-04 10:34 | DVHDS2 ---
Discharge Summary Date of Admission Feb 03, 2025 at 19:26 Date of Discharge: Feb 04, 2025 Labs/Diagnostic Data: Laboratory Results Test 02/04/25 05:40 02/04/25 04:53 02/03/25 17:50 02/03/25 16:11 POC Glucose 136 mg/dl (70-106) White Blood Count 11.2 10^3/uL (4.4-10.8) Red Blood Count 4.17 10^6/uL (4.0-5.20) Hemoglobin 10.4 g/dL (12.2-16.2) Hematocrit 33.5 % (36.0-46.0) Mean Corpuscular Volume 80.3 fL (80.0-100.0) Mean Corpuscular Hemoglobin 25.0 pg (28.0-32.0) Mean Corpuscular Hemoglobin Concent 31.1 g/dL (32.0-36.0) Red Cell Distribution Width 18.5 % (11.8-14.3) Platelet Count 359 10^3/uL (140-450) Mean Platelet Volume 7.7 fL (6.9-10.8) Neutrophils (%) (Auto) 81.1 % (37.0-80.0) Lymphocytes (%) (Auto) 6.9 % (10.0-50.0) Monocytes (%) (Auto) 10.3 % (0.0-12.0) Eosinophils (%) (Auto) 1.4 % (0.0-7.0) Basophils (%) (Auto) 0.3 % (0.0-2.0) Neutrophils # (Auto) 9.1 10 ^3/uL (1.6-8.6) Lymphocytes # (Auto) 0.8 10 ^3/uL (0.4-5.4) Monocytes # (Auto) 1.2 10 ^3/uL (0-1.3) Eosinophils # (Auto) 0.2 10 ^3/uL (0-0.8) Basophils # (Auto) 0 10 ^3/uL (0-0.2) Nucleated Red Blood Cells 0.0 % Sodium Level 137 mmol/L (136-145) Potassium Level 3.9 mmol/L (3.5-5.1) Chloride Level 97 mmol/L (98-107) Carbon Dioxide Level 32 mmol/L (20-31) Anion Gap 8 (5-15) Blood Urea Nitrogen 21 mg/dL (9-23) Creatinine 1.05 mg/dL (0.550-1.02) Glomerular Filtration Rate Calc 60 mL/min (>90) BUN/Creatinine Ratio 20.0 (10.0-20.0) Serum Glucose 113 mg/dL (74-106) Calcium Level 9.4 mg/dL (8.7-10.4) Total Bilirubin 0.3 mg/dL (0.2-1.0) Aspartate Amino Transferase (AST) 24 U/L (13-40) Alanine Aminotransferase (ALT) 27 U/L (7-40) Alkaline Phosphatase 111 U/L (46-116) Total Protein 6.0 g/dL (5.7-8.2) Albumin 3.8 g/dL (3.2-4.8) Troponin I High Sensitivity 13 ng/L (</=34) Urine Color Light-orange (Yellow) Urine Clarity Ex.turbid (Clear) Urine pH 5.5 (5.0-9.0) Urine Specific [place] 1.017 (1.001-1.035) Urine Protein 1+ (Negative) Urine Ketones Negative (Negative) Urine Blood Trace /uL (Negative) Urine Nitrite Negative (Negative) Urine Bilirubin Negative (Negative) Urine Urobilinogen 2 mg/dL (Negative) Urine Leukocyte Esterase 3+ /uL (Negative) Urine RBC 88 /hpf (0 - 4) Urine WBC Clumps Present /hpf (None Seen) Urine Microscopic WBC 285 /HPF (0-5) Urine Squamous Epithelial Cells Few /hpf (<5) Urine Calcium Oxalate Crystals Few (None Seen) Urine Bacteria Few /hpf (None Seen) Urine Mucus Few (None Seen) Urine Yeast (Budding) Many /hpf (None Seen) Urine Glucose Normal mg/dL (Normal) Other Laboratory Tests 02/04/25 04:53 Brief Hx & Hospital Course: see dictated note Condition at Discharge: Fair Final Diagnosis/Problems List uti Discharge Disposition: Home with Health Services Discharge Instruct/Medications Diet: Cardiac 2g Na,low cholest Activity: See Comment Follow Up/Referral: kiera cole pcp Medications: resume home meds monitor bp script to pharmacy Discharge Statement: "Patient was advised to return to the ER or call 911 if any headaches, dizziness, shortness of breath, chest pain, abdominal pain, bleeding, fevers, or worsening of medical condition. Patient was counseled about treatment plan, medications, possible side effects, patientverbalized understanding. All questions were answered to the best of my ability. This discharge took greater then 30 minutes in planning, reviewing documentation, counseling the patient, and discussing with other team members." ASSESSMENT ASSESSMENT Assessment uti Date of Service: Feb 04, 2025 Billing Provider: FRANNY PEACE MD Common Visit Codes: 85648-DHH/OBS DISCH DAY >30min FRANNY PEACE MD Feb 04, 2025 10:34
[2025-02-04] MEDS ORDERED: CEFD300C2 PO (10:37)
[2025-02-04] MEDS ORDERED: FLUC200T50 PO (10:37)
[2025-02-04] MEDS: cefTRIAXone 1GM/50ML D5W 50 ML IV ONE ×2 (10:55→11:39)
--- NOTE | 2025-02-04 11:17 | DVHDS ---
DATE OF DISCHARGE: 02/04/2025 HISTORY OF PRESENT ILLNESS: The patient is a 59-year-old lady who was admitted with complaints of some chest discomfort and low blood pressure. The patient has a history of congestive heart failure, COPD, chronic respiratory failure, diabetes, hypertension, CVA, and bedbound status. HOSPITAL COURSE: The patient had evidence of UTI. The patient was placed on IV Rocephin. The patient had acute renal failure. White count was elevated to 15,000 that improved to 11,000 at the time of discharge. The patient now wishes to go home in view of an upcoming appointment that is tomorrow morning that patient desperately wants to go to. She will, therefore; be discharged as per his wishes to resume her home medications and monitor home blood pressure as well as to be on Cefdinir 300 mg p.o. b.i.d. for 7 days along with fluconazole 200 mg daily for 7 days. She will follow up with the primary in one week and resume home health. FINAL DIAGNOSES: Therefore; * UTI with likely sepsis. * Acute renal failure, questionable vasomotor nephropathy. * Morbid obesity. * Chronic respiratory failure. * COPD with obstructive sleep apnea. * Chronic diastolic heart failure. * Hypertension. * Diabetes mellitus. * Functional quadriplegia. Time spent in discharge planning and review of plan with the patient and nursing was 39 minutes. MD RED Atkins/DARA/KAMARI TID: [id number] RECEIPT: [id number]
[2025-02-04] MEDS: FLUCONAZOLE 200MG/100ML 100 ML IV ONE (11:39)
[2025-02-04 13:00] VITALS: BP 133/56; PULSE 64; RESP 16; TEMP 99; O2SAT 100
[2025-02-04 13:15] VITALS: BP 123/52; PULSE 63; RESP 16; TEMP 98; O2SAT 100
[2025-02-05] MEDS ORDERED: cefTRIAXone 1GM/50ML D5W 50 ML IV SCH (09:00)
[2025-02-05] MEDS ORDERED: FLUCONAZOLE 200MG/100ML 100 ML IV SCH (10:00)
--- NOTE | 2025-02-05 11:02 | ECG ---
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
== END 2025-02-04 16:05 | disposition home health service (06) | DRG 871 ==
LOC: ER 13:45 → EDBD 13:45 → OVERFLOW 19:26 → TELE-CENTR 22:20 → CENTRAL 02-04 11:23
PROVIDERS: ADMIT Internal Medicine; ATTEND Internal Medicine
DX: A41.9 Sepsis, unspecified organism (principal); N17.0 Acute kidney failure with tubular necrosis; R53.2 Functional quadriplegia; I50.32 Chronic diastolic (congestive) heart failure; J96.10 Chronic respiratory failure, unspecified whether with hypoxia or hypercapnia; N39.0 Urinary tract infection, site not specified; Z68.43 Body mass index [BMI] 50.0-59.9, adult; I11.0 Hypertensive heart disease with heart failure; G47.33 Obstructive sleep apnea (adult) (pediatric); E11.65 Type 2 diabetes mellitus with hyperglycemia; E66.01 Morbid (severe) obesity due to excess calories; J44.9 Chronic obstructive pulmonary disease, unspecified; D64.9 Anemia, unspecified; Z86.73 Personal history of transient ischemic attack (TIA), and cerebral infarction without residual deficits; Z88.0 Allergy status to penicillin; Z79.01 Long term (current) use of anticoagulants; Z79.899 Other long term (current) drug therapy; Z79.82 Long term (current) use of aspirin; Z74.01 Bed confinement status
CPT/HCPCS: 36415; 80048; 80053; 81001; 82962; 84484; 85025; 87086; 93005; 96365; G0378; J1450; J1815; J1956; J2405

== ENCOUNTER 2025-03-24 02:12 | Inpatient (IN) | payer MEDICARE, MEDICAID ==
[~2025-03-24] VITALS: Ht 172.7 cm; Wt 176.4 kg
[2025-03-24] VITALS (7 sets, daily range): BP systolic 101–164; BP diastolic 61–68; PULSE 61–75; RESP 12–19; TEMP 98.1; O2SAT 61–99
[~2025-03-24 02:12] MED LIST changes: +BUSP15TA60 PO; +CEFD300C2 PO; +FLUC200T50 PO; +FLUT50SP NAS; +FURO80TA3 PO; +LOSA-534 PO; +METO1TAB9 PO; -METO25TA5 PO; +ONDA-188 PO; +POTA1TAB4 PO; +SIMV40TA18 PO; +TRAZ-228 PO
--- NOTE | 2025-03-24 02:25 | ECG ---
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
--- NOTE | 2025-03-24 02:36 | ED.PDOC ---
History of Present Illness HPI Comments 59 y/o morbidly obese F is BIBA from private residence for c/c nonradiating, right sided chest pain, with associated nausea. Per EMS report, patient endorses on acute, unprovoked, and nontraumatic onset of pain, which awoke her up from her sleep, this morning. Significant history for asthma, VIVI, CAD, CHF - diastolic, COPD w/LAZARA and OHS and home O2, CVA, chronic respiratory failure, DM, HTN, MA, UTI, sepsis, MRSA and pseudomonas pneumonia, functional quadriplegia - bed bound, and cardiopulmonary arrest. Patient denies any shortness of breath, abdominal pain, vomiting, fever, chills, or further associated symptoms. Per EMS report, vitals were noted to have been stable and within normal limits. Time Seen by MD: 02:15 Primary Care Provider: CHRISTIAN Reviewed Notes: Nurses Notes, Marina Sales And Service Supervisor Notes, Medications, Allergies Allergies: Coded Allergies: Penicillins (Verified Allergy, Unknown, 01/15/25) Home Meds Active Scripts Fluconazole (Fluconazole) 200 Mg Tab, 200 MG PO DAILY for 7 Days, #7 TAB Prov:FRANNY PEACE MD 02/04/25 Cefdinir (Cefdinir) 300 Mg Cap, 300 MG PO BID for 7 Days, #14 CAP Prov:FRANNY PEACE MD 02/04/25 Furosemide (Lasix) 40 Mg Tab, 40 MG PO BID for 30 Days, #60 TAB 1 Refill Prov:[facility] 01/09/25 Apixaban Base (ELIQUIS) 5 Mg Tab, 5 MG PO BID for 30 Days, #60 TAB 2 Refills Prov:[facility] 01/08/25 Isosorbide Dinitrate (Isosorbide Dinitrate) 30 Mg Tab, 30 MG PO TID for 30 Days, #90 TAB Prov:[facility] 01/08/25 Spironolactone (Spironolactone) 25 Mg Tab, 1 TAB PO DAILY for 30 Days, #30 TAB 1 Refill Prov:[facility] 01/08/25 Prednisone (Prednisone) 20 Mg Tab, 20 MG PO DAILY for 5 Days, #5 MG Prov:[facility] 01/08/25 Reported Medications Fluticasone Propionate (Nasal) (Fluticasone Propionate) 50 Mcg/Act Spr, 1 SPRAY DANIELE DAILY 02/04/25 Potassium Chloride (K-Tab) 20 Meq Tab, 2 TAB PO BID 02/04/25 Trazodone Hcl (Trazodone Hcl) 100 Mg Tab, 2 TAB PO QHSP PRN for FOR INSOMNIA 02/04/25 Ondansetron HCl (Ondansetron Hydrochloride) 4 Mg Tab, 1 TAB PO Q6HPRN PRN for NAUSEA / VOMITING 02/04/25 Furosemide (Furosemide) 80 Mg Tab, 1 TAB PO BID 02/04/25 Buspirone Hcl (Buspirone Hcl) 15 Mg Tab, TAB PO QID 02/04/25 Losartan Potassium (Losartan Potassium) 50 Mg Tab, 1 TAB PO BID 02/04/25 Simvastatin (Simvastatin) 40 Mg Tab, 1 TAB PO HS 02/04/25 Metoprolol Succinate (Metoprolol Succinate Er) 100 Mg Tab, 1 TAB PO DAILY 02/04/25 Meclizine Hcl (Meclizine Hcl) 25 Mg Tab, 25 MG PO BIDP PRN for DIZZINESS for 30 Days, MG 12/16/24 Atorvastatin Calcium (Lipitor) 40 Mg Tab, 40 MG PO, TAB 12/16/24 Prednisone (Prednisone) 20 Mg Tab, 1 TAB PO DAILY 12/16/24 Rivaroxaban (Xarelto Tablet) 20 Mg Tb, 1 TAB PO DAILY 12/15/24 Alprazolam (Alprazolam) 0.5 Mg Tab, 1 TAB PO QID PRN for ANXIETY 12/15/24 Amiodarone HCl (Amiodarone HCl) 200 Mg Tab, 1 TAB PO BID 12/15/24 Aspirin (Aspirin Low Dose) 81 Mg Tab, 1 TAB PO DAILY 12/15/24 Information Source: Patient, Emergency Med Personnel Mode of Arrival: EMS Severity: Moderate Timing: Hours Duration: Since onset Prehospital treatment: 12 Lead EKG, Accucheck, Nursing Informatics Analyst Past Medical History PAST MEDICAL HISTORY: Asthma, CAD, CHF (diastolic), COPD (w/LAZARA and OHS and home O2), CVA, DM, HTN, MA, UTI'S Past Medical History (Other): VIVI chronic respiratory failure sepsis MRSA and pseudomonas pneumonia functional quadriplegia - bed bound cardiopulmonary arrest morbid obesity Surgical History: Denies all surgeries COMMUNICATIONS PROJECT MANAGER History: Denies all COMMUNICATIONS PROJECT MANAGER Hx Family History Family History: Reviewed,noncontributory to illness, Unknown Social History Smoker: Non-Smoker Alcohol: Denies ETOH Use Drugs: Denies Drug Use Lives In: Assisted Care All Other Systems: Reviewed and Negative (Comprehensive systems review obtained and negative except for what is stated in the HPI.) Physical Exam General Appearance: No Apparent Distress, Obese HEENT: Normal ENT Inspection, Pharynx Normal, TMs Normal Neck: Full Range of Motion, Non-Tender, Normal, Normal Inspection Respiratory: Chest Non-Tender, Lungs Clear, No Accessory Muscle Use, No Respiratory Distress, Normal Breath Sounds Cardiovascular: No Edema, No JVD, No Murmur, No Gallop, Normal Peripheral Pulses, Regular Rate/Rhythm Breast Exam: Deferred Gastrointestinal: No Organomegaly, Non Tender, No Pulsatile Mass, Normal Bowel Sounds, Soft Genitalia: Deferred Pelvic: Deferred Rectal: Deferred Extremities: No calf tenderness, Normal capillary refill, Normal inspection, Normal range of motion, Non-tender, No pedal edema Musculoskeletal : Apperance: Normal Neurologic: Alert, janitorial manager II-XII nml as Tested, No Motor Deficits, Normal Affect, Normal Mood, No Sensory Deficits Cerebellar Function: Normal Reflexes: Normal Skin: Dry, Normal Color, Warm Lymphatic: No Adenopathy Was a procedure done? Was a procedure done?: No EKG EKG : Pulse Rate (adult): 79 [place]: Normal Cardiac Rhythm: NSR Block: None Hypertrophy: None ST: Normal Differential Dx Considerations may include: MA, PE, ACS, Angina, Anxiety, Viral syndrome, URI, PNA, acute CHF/COPD exacerbation, among others X-Ray, Labs, Meds, VS Vital Signs Date Time Temp Pulse Resp B/P (MAP) Pulse Ox O2 Delivery O2 Flow Rate FiO2 03/24/25 03:16 77 03/24/25 02:36 79 03/24/25 02:25 98.0 85 16 149/69 (95) 96 98.0 03/24/25 02:16 79 Lab Test 03/24/25 03:40 03/24/25 02:35 Range/Units Troponin I High Sensitivity 28 24 </=34 ng/L White Blood Count 14.1 H 4.4-10.8 10^3/uL Red Blood Count 4.35 4.0-5.20 10^6/uL Hemoglobin 11.1 L 12.2-16.2 g/dL Hematocrit 34.8 L 36.0-46.0 % Mean Corpuscular Volume 80.1 80.0-100.0 fL Mean Corpuscular Hemoglobin 25.4 L 28.0-32.0 pg Mean Corpuscular Hemoglobin Concent 31.8 L 32.0-36.0 g/dL Red Cell Distribution Width 17.7 H 11.8-14.3 % Platelet Count 336 140-450 10^3/uL Mean Platelet Volume 8.4 6.9-10.8 fL Neutrophils (%) (Auto) 81.2 H 37.0-80.0 % Lymphocytes (%) (Auto) 8.6 L 10.0-50.0 % Monocytes (%) (Auto) 8.8 0.0-12.0 % Eosinophils (%) (Auto) 0.2 0.0-7.0 % Basophils (%) (Auto) 1.2 0.0-2.0 % Neutrophils # (Auto) 11.5 H 1.6-8.6 10 ^3/uL Lymphocytes # (Auto) 1.2 0.4-5.4 10 ^3/uL Monocytes # (Auto) 1.2 0-1.3 10 ^3/uL Eosinophils # (Auto) 0 0-0.8 10 ^3/uL Basophils # (Auto) 0.2 0-0.2 10 ^3/uL Nucleated Red Blood Cells 0.0 % Sodium Level 136 136-145 mmol/L Potassium Level 4.4 3.5-5.1 mmol/L Chloride Level 94 L 98-107 mmol/L Carbon Dioxide Level 36 H 20-31 mmol/L Anion Gap 6 5-15 Blood Urea Nitrogen 34 H 9-23 mg/dL Creatinine 1.32 H 0.550-1.02 mg/dL Glomerular Filtration Rate Calc 46 >90 mL/min BUN/Creatinine Ratio 25.8 H 10.0-20.0 Serum Glucose 266 H 74-106 mg/dL Calcium Level 9.2 8.7-10.4 mg/dL B-Type Natriuretic Peptide 104.39 0-100 pg/mL [address] [address] Ph: [phone] DIAGNOSTIC IMAGING Diagnostic Imaging Report : [id number] Signed PATIENT: DENTON BLAKE ACCT: [id number] UNIT: [id number] : 1965 LOC: ER ROOM / BED: / AGE / SEX: 59 / F ADM STATUS: REG ER SERVICE 1 ORDERING PHYSICIAN: CHITO MAGUIRE MD PROCEDURE(s): CXRP - CHEST PORTABLE REASON: cp ORDER NUMBER(s): [id number], ACCESSION NUMBER(s): [id number] CHEST RADIOGRAPH Indication: cp Technique: Single frontal view of the chest was obtained COMPARISON: XY CHEST PORTABLE on DOS: 01/02/25, XY CHEST XRAY 1 VIEW on DOS: 01/02/25, XY CHEST XRAY 1 VIEW on DOS: 01/01/25, XY CHEST XRAY 1 VIEW on DOS: 12/31/24, XY CHEST PORTABLE on DOS: 12/30/24 FINDINGS: Lines and Tubes: None Lungs: Diffuse increased prominence of the pulmonary vasculature. No definite evidence of focal consolidation. Pleura: No effusion. No pneumothorax. Cardiomediastinal contours: Cardiomegaly Bones: Unremarkable IMPRESSION: 1. Cardiomegaly and diffuse increased prominence of the pulmonary vasculature. ATED BY: WOJCIECH REYES MD DICTATED DATE/TIME: 03/24/25329 SIGNED BY: WOJCIECH REYES MD SIGNED DATE/TIME: 03/24/25329 CC: Time of 1ST Reevaluation: 02:45 Reevaluation 1ST: Unchanged Patient Education/Counseling: Diagnosis, Treatment, Other (need for admission ) Family Education/Counseling: No Family Present Additional Information Previous visits reviewed: December 15, 2024, January 15, 2025, and February 03, 2025 encounters for acute encephalopathy, catheter problem, and chest pain of unknown etiology. The following tests were ordered, and results were reviewed by me: CXR, CBC, BMP, troponin, BNP, EKG Additional Information was gathered from interviewing the following independent historians: EMS I reviewed and agreed with the following test results read by other providers: CXR I discussed treatment and results with medical personnel and: patient SEPSIS Sepsis Screen Physician Orders Chest Portable (03/24/25 02:22) Troponin-I Hs (03/24/25 05:22) Electrocardigram (03/24/25 03:22) Electrocardigram (03/24/25 05:22) Vital Signs Date Time Temp Pulse Resp B/P (MAP) Pulse Ox O2 Delivery O2 Flow Rate FiO2 03/24/25 03:16 77 03/24/25 02:36 79 03/24/25 02:25 98.0 85 16 149/69 (95) 96 98.0 03/24/25 02:16 79 Laboratory Tests Test 03/24/25 02:35 White Blood Count 14.1 10^3/uL (4.4-10.8) H Departure 1 Departure Time of Disposition: 05:13 (Patient presented with chest pain that was concerning for possible STEMI, ACS, PE, Pneumonia, Muscle Strain, COPD, Dissection. Data: 1. I ordered and reviewed the result of at least 3 labs including a CBC, BMP, and Troponin. 2. I independently interpreted the following tests: EKG which shows sinus rhythm and and Chest X-ray which shows pulmonary vascular congestion.Risk:This patient has a high risk of morbidity due to further diagnostic testing or treatment and may suffer from an acute cardiac or respiratory disorder. Workup reveals concern for ACS and patient should be admitted for further workup and possible expert consultation. ) Impression: Primary Impression: Acute chest pain Disposition: 09 ADMITTED INPATIENT Admit to: Med Surg Condition: Serious Critical Care Note Critical Care Time?: Yes Critical care comment: Acute chest pain Authorized and Performed by: Chito Maguire MD Total critical care time: Approximately 39 minutes Due to a high probability of clinically significant, life threatening deterioration, the patient required my highest level of preparedness to intervene emergently and I personally spent this critical care time directly and personally managing the patient. This critical care time included obtaining a history; examining the patient; pulse oximetry; ordering and review of studies; arranging urgent treatment with development of a management plan; evaluation of patient's response to treatment; frequent reassessment; and, discussions with other providers. This critical care time was performed to assess and manage the high probability of imminent, life-threatening deterioration that could result in multi-organ failure. It was exclusive of separately billable procedures and treating other patients and teaching time. Please see my other sections and the rest of the note for further information on patient assessment and treatment. Stability Stability form required: No Heart Score Heart Score: Heart Score Response (Comments) Value History Highly Suspicious 2 EKG Normal 0 Age 45-64 1 Risk Factors >3 or Hx ASHD 2 Troponin Normal limit 0 Total 5 I personally scribed for CHITO MAGUIRE MD ([email or web address]) on 03/24/25 at 02:36. Electronically submitted by Nirav Yancey ([email or web address]). I personally scribed for CHITO MAGUIRE MD ([email or web address]) on 03/24/25 at 04:43. Electronically submitted by Nirav Yancey ([email or web address]). CHITO MAGUIRE MD Mar 24, 2025 02:36
[2025-03-24 03:02] LABS: Hematocrit 34.8 % (36.0-46.0); Hemoglobin 11.1 g/dL (12.2-16.2); Mean Corpuscular Hemoglobin 25.4 pg (28.0-32.0); Mean Corpuscular Volume 80.1 fL (80.0-100.0); Nucleated Red Blood Cells % 0.0 %
[2025-03-24 03:11] LABS: Potassium 4.4 mmol/L (3.5-5.1); Sodium 136 mmol/L (136-145)
[2025-03-24 03:12] LABS: Anion Gap 6 (5-15)
[2025-03-24 03:13] LABS: Calcium 9.2 mg/dL (8.7-10.4)
[2025-03-24 03:17] LABS: BUN/Creatinine Ratio 25.8 (10.0-20.0)
--- NOTE | 2025-03-24 03:32 | DVH ---
CHEST RADIOGRAPH Indication: cp Technique: Single frontal view of the chest was obtained COMPARISON: XY CHEST PORTABLE on DOS: 01/02/25, XY CHEST XRAY 1 VIEW on DOS: 01/02/25, XY CHEST XRAY 1 EW on DOS: 01/01/25, XY CHEST XRAY 1 VIEW on DOS: 12/31/24, XY CHEST PORTABLE on DOS: 12/30/24 FINDINGS: Lines and Tubes: None Lungs: Diffuse increased prominence of the pulmonary vasculature. No definite evidence of focal cons olidation. Pleura: No effusion. No pneumothorax. Cardiomediastinal contours: Cardiomegaly Bones: Unremarkable IMPRESSION: 1. Cardiomegaly and diffuse increased prominence of the pulmonary vasculature.
[2025-03-24 03:49] LABS: Blood Urea Nitrogen 34 mg/dL (9-23); Carbon Dioxide 36 mmol/L (20-31); Chloride 94 mmol/L (98-107); Glucose 266 mg/dL (74-106)
[2025-03-24] MEDS: FUROSEMIDE 40 MG/4 ML VIAL IV ONE (05:15)
--- NOTE | 2025-03-24 05:55 | ECG ---
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
--- NOTE | 2025-03-24 05:56 | ECG ---
[facility] Test Date: 2025-03-24 Test Time: 05:14:05 Pat Name: DENTON BLAKE Department: ED Room: 0236T Gender: F Crown Blocker: DIANNE : 1965 Requested By: CHITO BERNAL Order Number: [id number] Reading MD: Kenneth Luna Measurements Intervals [place] Rate: 71 P: 31 [place]: 202 QRS: 28 QRSD: 96 T: 9 QT: 553 QTc: 602 Interpretive Statements Sinus rhythm Borderline T abnormalities, diffuse leads Prolonged QT interval Electronically Signed On 03-26-2025 15:55:45 PDT by Kenneth Luna Please click the below link to view image of tracing.
[2025-03-24] MEDS ORDERED: NITROGLYCERIN 0.4 MG SL TAB SL PRN (08:15)
[2025-03-24] MEDS ORDERED: ACETAMINOPHEN 325 MG TAB PO PRN (08:15)
[2025-03-24] MEDS ORDERED: MORPHINE SULFATE INJ 2 MG/ml SYRG IV PRN ×2 (08:15→16:15)
[2025-03-24 08:27] LABS: Urine Budding Yeast MANY /hpf (None Seen); Urine Protein, UAD 1+ (Negative)
[2025-03-24] MEDS ORDERED: DEXTROSE (50%) 50ML SYRG IV PRN (08:30)
--- NOTE | 2025-03-24 08:54 | DVHHP2 ---
History of Present Illness Reason for Visit: Chest pain History of Present Illness Sophy Che is a 59-year-old female who is bedbound, with past medical history of morbid obesity, diabetes, hypertension, hyperlipidemia, COPD on home oxygen, obstructive sleep apnea, CHF, and kidney disease, who came to the hospital due to chest pain. Patient states the pain came on suddenly with no provoking incidences. She denies any shortness of breath, palpitations, or dizziness. Troponin are negative, no notable EKG changes, X-ray shows increased pulmonary vascular congestion. Cardiovascular: HTN, MT, hyperipidemia Pulmonary: COPD, Other (LAZARA) SIDEROGRAPHER: CVA Endocrine: Diabetes Past Surgical History: Cholecystectomy, (x 1), Other (Lap band x 2) Smoke: No ALCOHOL: none Drugs: None Lives: with Family Domestic Violence: Neg Review of Systems Constitutional: No: Fever, Chills, Sweats, Weakness, Malaise, Other Eyes: No: Pain, Vision change, Conjunctivae inflammation, Eyelid inflammation, Other, Redness ENT: No: Ear pain, Ear discharge, Nose pain, Nose discharge, Nose congestion, Mouth pain, Mouth swelling, Throat pain, Throat swelling, Other Respiratory: No: Cough, Dry, Shortness of breath, SOB with excertion, Wheezing, Hemoptysis, Pleuritic Pain, Sputum, Wheezing, Other Cardiovascular: Chest Pain; No: Palpitations, Orthopnea, Paroxysmal Noc. Dyspnea, Edema, Lt Headedness, Other Gastrointestinal: No: Nausea, Vomiting, Abdominal Pain, Diarrhea, Constipation, Melena, Hematochezia, Other Genitourinary: No Dysuria, No Frequency, No Incontinence, No Hematuria, No Retention, No Other Musculoskeletal: No: other, neck pain, shoulder pain, arm pain, back pain, hand pain, leg pain, foot pain Skin: No: Rash, Lesions, Jaundice, Bruising, Other Neurological: No: Weakness, Numbness, Incoordination, Change in speech, Confusion, Seizures, Other Allergies: Coded Allergies: Penicillins (Verified Allergy, Unknown, 01/15/25) Medications Current Medications Medications Dose Ordered Sig/Julito Route Start Time Stop Time Status Last Admin Dose Admin Sodium Chloride 10 ml Q8HR IV 03/24/25 14:00 UNV Acetaminophen/ Hydrocodone Bitart 1 tab Q4HP PRN PO 03/24/25 08:15 UNV Ondansetron HCl 4 mg Q4HP PRN IV 03/24/25 08:15 UNV Docusate Sodium 100 mg BIDPRN PRN PO 03/24/25 08:15 UNV Acetaminophen 650 mg Q6HP PRN PO 03/24/25 08:15 UNV Nitroglycerin 0.4 mg Q5MINP PRN SL 03/24/25 08:15 UNV Morphine Sulfate 2 mg Q30M PRN IV 03/24/25 08:15 UNV Exam Vital Signs Vital Signs Date Time Temp Pulse Resp B/P (MAP) Pulse Ox O2 Delivery O2 Flow Rate FiO2 03/24/25 06:35 74 18 122/87 (99) 97 03/24/25 02:35 98.3 98.3 03/24/25 02:35 Nasal Cannula* 4 36 General Appearance: Alert, Oriented X3, Cooperative, No acute distress HEENT: Atraumatic Respiratory: Other (Diminished breath sounds) Cardiovascular: Regular rate, Normal S1, Normal S2, No murmurs Abdominal: Normal bowel sounds Extremities: No clubbing, No cyanosis Skin: No rashes, No significant lesion Neuro: Normal speech, Other (bedbound at baseline) Psych/Mental Status: Mental status NL, Mood NL Labs/Xrays Labs Test 03/24/25 06:55 03/24/25 06:38 03/24/25 02:35 Range/Units Urine Color Light-orange Yellow Urine Clarity Ex.turbid Clear Urine pH 5.0 5.0-9.0 Urine Specific [place] 1.012 1.001-1.035 Urine Protein 1+ H Negative Urine Ketones Negative Negative Urine Blood 2+ H Negative /uL Urine Nitrite 1+ H Negative Urine Bilirubin Negative Negative Urine Urobilinogen Normal Negative mg/dL Urine Leukocyte Esterase 3+ Negative /uL Urine RBC 10 0 - 4 /hpf Urine Microscopic WBC 94 H 0-5 /HPF Urine Squamous Epithelial Cells None seen <5 /hpf Urine Bacteria Many H None Seen /hpf Urine Mucus Few None Seen Urine Yeast (Budding) Many None Seen /hpf Urine Glucose Normal Normal mg/dL Troponin I High Sensitivity 24 </=34 ng/L White Blood Count 14.1 H 4.4-10.8 10^3/uL Red Blood Count 4.35 4.0-5.20 10^6/uL Hemoglobin 11.1 L 12.2-16.2 g/dL Hematocrit 34.8 L 36.0-46.0 % Mean Corpuscular Volume 80.1 80.0-100.0 fL Mean Corpuscular Hemoglobin 25.4 L 28.0-32.0 pg Mean Corpuscular Hemoglobin Concent 31.8 L 32.0-36.0 g/dL Red Cell Distribution Width 17.7 H 11.8-14.3 % Platelet Count 336 140-450 10^3/uL Mean Platelet Volume 8.4 6.9-10.8 fL Neutrophils (%) (Auto) 81.2 H 37.0-80.0 % Lymphocytes (%) (Auto) 8.6 L 10.0-50.0 % Monocytes (%) (Auto) 8.8 0.0-12.0 % Eosinophils (%) (Auto) 0.2 0.0-7.0 % Basophils (%) (Auto) 1.2 0.0-2.0 % Neutrophils # (Auto) 11.5 H 1.6-8.6 10 ^3/uL Lymphocytes # (Auto) 1.2 0.4-5.4 10 ^3/uL Monocytes # (Auto) 1.2 0-1.3 10 ^3/uL Eosinophils # (Auto) 0 0-0.8 10 ^3/uL Basophils # (Auto) 0.2 0-0.2 10 ^3/uL Nucleated Red Blood Cells 0.0 % Sodium Level 136 136-145 mmol/L Potassium Level 4.4 3.5-5.1 mmol/L Chloride Level 94 L 98-107 mmol/L Carbon Dioxide Level 36 H 20-31 mmol/L Anion Gap 6 5-15 Blood Urea Nitrogen 34 H 9-23 mg/dL Creatinine 1.32 H 0.550-1.02 mg/dL Glomerular Filtration Rate Calc 46 >90 mL/min BUN/Creatinine Ratio 25.8 H 10.0-20.0 Serum Glucose 266 H 74-106 mg/dL Calcium Level 9.2 8.7-10.4 mg/dL B-Type Natriuretic Peptide 104.39 0-100 pg/mL CHEST RADIOGRAPH FINDINGS: Lines and Tubes: None Lungs: Diffuse increased prominence of the pulmonary vasculature. No definite evidence of focal consolidation. Pleura: No effusion. No pneumothorax. Cardiomediastinal contours: Cardiomegaly Bones: Unremarkable IMPRESSION: 1. Cardiomegaly and diffuse increased prominence of the pulmonary vasculature. SEPSIS Sepsis Screen Date sepsis recognized/suspect: Mar 24, 2025 Time Sepsis recognized/suspect: 805 Recent Procedure: No On Antibiotic Therapy: No Respiratory Rate >20: No Heart Rate >90: No Temp<36 C (96.8 F) or >38.3 C: No SBP <90 or MAP <65 mmHG: No New Acute Mental Status Change: No Is the patient on CPAP, BIPAP,: No Physician Orders Chest Portable (03/24/25 02:22) Insert Midline (03/24/25 07:20) Admit (03/24/25 08:11) Code Status (03/24/25 08:11) Sodium Chloride Lock (Saline Lock Ns) (03/24/25 14:00) Hydrocodone-Acet 5/325mg Tab ([place] 5/32 (03/24/25 08:15) Ondansetron Hcl (Zofran) (03/24/25 08:15) Docusate Sodium Capsule (Colace Capsule) (03/24/25 08:15) Complete Blood Count (03/25/25 04:00) Comprehensive Metabolic Panel (03/25/25 04:00) Cardiac Diet-2gna,Lofat,Lochol (03/24/25 Breakfast) Condition: Serious (03/24/25 08:11) Acetaminophen Tablet (Tylenol Tablet) (03/24/25 08:15) Nitroglycerin Sublingual (Ntrostat Subli (03/24/25 08:15) Morphine Sulfate Injection (03/24/25 08:15) Stat Ekg For Chest Pain (03/24/25 08:11) Notify Md Of Changes From Base (03/24/25 08:11) Balancing Machine Operator For 24 Hours (03/24/25 08:11) Emergency Dysrhythmia Protocol (03/24/25 08:11) Rhythm Strips Once Every Shift (03/24/25 08:11) Oxygen By Nasal Cannula (03/24/25 08:11) Urine Bacterial Culture (03/24/25 08:14) Vital Signs Date Time Temp Pulse Resp B/P (MAP) Pulse Ox O2 Delivery O2 Flow Rate FiO2 03/24/25 06:35 74 18 122/87 (99) 97 03/24/25 05:15 120/106 03/24/25 05:14 71 03/24/25 04:35 74 28 140/104 (116) 97 03/24/25 03:16 77 03/24/25 02:36 79 03/24/25 02:35 98.3 107 16 112/73 (86) 97 98.3 03/24/25 02:35 75 19 95 Nasal Cannula* 4 36 03/24/25 02:25 98.0 85 16 149/69 (95) 96 98.0 03/24/25 02:16 79 Laboratory Tests Test 03/24/25 02:35 White Blood Count 14.1 10^3/uL (4.4-10.8) H Assessment/Plan Assessment/Plan Assessment: Acute chest pain, Leukocytosis, complicated UTI, Hyperglycemia, Uncontrolled diabetes, Cardiomegaly, COPD, Obstructive sleep apnea, Hypertension, Hyperlipidemia, Plan: Admit to Tele, IV antibiotics, IV Lasix, A1c, Accu checks Q AC&HS with sliding scale, PRN breathing treatments, BiPAP for at night as needed, Home medications reconciled, Plan discussed with: Patient My Orders Orders - [facility] Procedure Category Date Status Time Admit ADMIT 03/24/25 Transmitted 08:11 Code Status CODE 03/24/25 Transmitted 08:11 Sodium Chloride Lock PHA 03/24/25 Logged (Saline Lock Ns) 14:00 Hydrocodone-Acet PHA 03/24/25 Logged 5/325mg Tab ([place] 08:15 Ondansetron Hcl PHA 03/24/25 Logged (Zofran) 08:15 Docusate Sodium PHA 03/24/25 Logged Capsule (Colace 08:15 Complete Blood Count LAB 03/25/25 Verified 04:00 Comprehensive LAB 03/25/25 Verified Metabolic Panel 04:00 Cardiac DIET 03/24/25 Transmitted Diet-2gna,Lofat,Lochol Breakfast Condition: Serious TORRES 03/24/25 In Process 08:11 Acetaminophen Tablet PHA 03/24/25 Logged (Tylenol Tablet) 08:15 Nitroglycerin PHA 03/24/25 Logged Sublingual (Ntrostat 08:15 Morphine Sulfate PHA 03/24/25 Logged Injection 08:15 Stat Ekg For Chest TORRES 03/24/25 In Process Pain 08:11 Notify Of Changes TORRES 03/24/25 In Process From Base 08:11 Balancing Machine Operator For [facility] 03/24/25 In Process 24 Hours 08:11 Emergency Dysrhythmia [facility] 03/24/25 In Process Protocol 08:11 Rhythm Strips Once [facility] 03/24/25 In Process Every Shift 08:11 Oxygen By Nasal RT 03/24/25 Transmitted Cannula 08:11 Urine Bacterial ANIYA 03/24/25 In Process Culture 08:14 Date of Service: Mar 24, 2025 Billing Provider: [facility] Common Visit Codes: [id number] INP/OBS CARE (MOD) [facility] Mar 24, 2025 08:54
[2025-03-24] MEDS: cefTRIAXone 1GM/50ML D5W 50 ML IV SCH (09:27)
[2025-03-24] MEDS: InsuLIN REG 1unit/0.01ml Soln (100units/ml) SC SCH ×2 (11:30→21:51)
[2025-03-24] MEDS: ACCU-CHEK COMFORT CURVE STRIP VI SCH (11:30)
[2025-03-24] MEDS: SODIUM CHLOR 0.9% PF (SALINE LOCK) 10ML VIAL/SYR IV SCH (14:13)
[2025-03-24] MEDS ORDERED: TRAZODONE HCL PO PRN (15:15)
[2025-03-24] MEDS ORDERED: EMPA1TAB3 PO (15:22)
[2025-03-24] MEDS ORDERED: GLIP5TAB21 PO (15:22)
[2025-03-24] MEDS ORDERED: PREG75CA90 PO (15:22)
[2025-03-24] MEDS: HYDROcodone-ACET 5/325MG TAB PO PRN (15:53)
--- NOTE | 2025-03-24 16:22 | DVHPN2 ---
Subjective Patient continues to report having chest Reviewed: Care Plan, Labs, Medications Changes from previous H/P or p: No Changes General: Per HPI Eyes: No Pain, No Vision change, No Conjunctivae inflammation, No Eyelid inflammation, No Other, No Redness ENT: No Ear pain, No Ear discharge, No Nose pain, No Nose discharge, No Nose congestion, No Mouth pain, No Mouth swelling, No Throat pain, No Throat swelling, No Other Cardiovascular: Chest Pain; No Palpitations, No Orthopnea, No Paroxysmal Noc. Dyspnea, No Edema, No Lt Headedness, No Other Respiratory: No Cough, No Dry, No Shortness of breath, No SOB with excertion, No Wheezing, No Hemoptysis, No Pleuritic Pain, No Sputum, No Other Gastrointestinal: No Nausea, No Vomiting, No Abdominal Pain, No Diarrhea, No Constipation, No Melena, No Hematochezia, No Other Genitourinary: No Dysuria, No Frequency, No Incontinence, No Hematuria, No Retention, No Other Musculoskeletal: No other, No neck pain, No shoulder pain, No arm pain, No back pain, No hand pain, No leg pain, No foot pain Skin: No Rash, No Lesions, No Jaundice, No Bruising, No Other Objective Vitals Vital Signs Date Time Temp Pulse Resp B/P (MAP) Pulse Ox O2 Delivery O2 Flow Rate FiO2 03/24/25 15:50 67 12 164/65 98 4.0 36 03/24/25 15:45 Nasal Cannula 03/24/25 08:00 98.5 98.5 General Appearance: Alert, Oriented X3, Cooperative, mild distress HEENT: Atraumatic, PERRLA Cardiovascular: Normal S1, Normal S2 Genitourinary: No Apparent Abnormalities (Gee catheter from home) Musculoskeletal: Normal sensory function, Normal motor function Neuro: Cranial nerves 3-12 NL Skin: Dry Psych/Mental Status: Mental status NL, Mood NL Medications Current Medications Medications Dose Ordered Sig/Julito Route Start Time Stop Time Status Last Admin Dose Admin Sodium Chloride 10 ml Q8HR IV 03/24/25 14:00 03/24/25 14:13 10 ML Acetaminophen/ Hydrocodone Bitart 1 tab Q4HP PRN PO 03/24/25 08:15 03/24/25 15:53 1 TAB Ondansetron HCl 4 mg Q4HP PRN IV 03/24/25 08:15 Docusate Sodium 100 mg BIDPRN PRN PO 03/24/25 08:15 Acetaminophen 650 mg Q6HP PRN PO 03/24/25 08:15 Nitroglycerin 0.4 mg Q5MINP PRN SL 03/24/25 08:15 Morphine Sulfate 2 mg Q30M PRN IV 03/24/25 08:15 Diagnostic Test (Pha) 1 strip ACHS 03/24/25 11:30 Insulin Human Regular HS SC 03/24/25 22:00 Insulin Human Regular AC SC 03/24/25 11:30 Dextrose 50 ml UD PRN IV 03/24/25 08:30 Ceftriaxone Sodium 50 ml @ 100 mls/hr DAILY IV 03/24/25 10:00 03/24/25 09:27 100 MLS/HR Alprazolam 0.5 mg QID PRN PO 03/24/25 15:15 Amiodarone HCl 200 mg BID PO 03/24/25 22:00 Apixaban 5 mg BID PO 03/24/25 22:00 Aspirin 81 mg DAILY PO 03/25/25 10:00 Furosemide 40 mg BID PO 03/24/25 22:00 Patient Own Medication 1 tab DAILY PO 03/25/25 10:00 UNV Patient Own Medication 1 tab HS PO 03/24/25 22:00 UNV Patient Own Medication 2 tab QHSP PRN PO 03/24/25 15:15 UNV Glipizide 10 mg BIDAC PO 03/24/25 17:00 Patient Own Medication 1 tab DAILY PO 03/25/25 10:00 Buspirone HCl 15 mg QID PO 03/24/25 18:00 Pregabalin 75 mg TID PO 03/24/25 22:00 Metoprolol Succinate 100 mg DAILY PO 03/25/25 10:00 Atorvastatin Calcium 20 mg HS PO 03/24/25 22:00 Trazodone HCl 200 mg HSPRN PRN PO 03/24/25 18:00 Laboratory Results Laboratory Tests 03/24/25 02:35 Chemistry Test 03/24/25 02:35 Calcium Level 9.2 mg/dL (8.7-10.4) Cardiac Markers Test 03/24/25 02:35 B-Type Natriuretic Peptide 104.39 pg/mL (0-100) HgA1c, TSH Test 03/24/25 02:32 Hemoglobin A1c 9.9 % A1C (<5.7) H Urinalysis Test 03/24/25 06:55 Urine Color Light-orange (Yellow) Urine Clarity Ex.turbid (Clear) Urine pH 5.0 (5.0-9.0) Urine Specific [place] 1.012 (1.001-1.035) Urine Protein 1+ (Negative) H Urine Ketones Negative (Negative) Urine Blood 2+ /uL (Negative) H Urine Nitrite 1+ (Negative) H Urine Bilirubin Negative (Negative) Urine Urobilinogen Normal mg/dL (Negative) Urine Leukocyte Esterase 3+ /uL (Negative) Urine RBC 10 /hpf (0 - 4) Urine Microscopic WBC 94 /HPF (0-5) H Urine Squamous Epithelial Cells None seen /hpf (<5) Urine Bacteria Many /hpf (None Seen) H Urine Mucus Few (None Seen) Urine Yeast (Budding) Many /hpf (None Seen) Urine Glucose Normal mg/dL (Normal) Labs and/or images reviewed: Labs reviewed by me, Image(s) reviewed by me Assessment/Plan Assessment/Plan Impression: -sepsis -complicated cystitis -chest pain -questionable pulmonary hypertension given severe RV failure noted on previous echocardiogram. No left-sided failure, aortic or mitral valve stenosis noted -acute on chronic hypoxic respiratory failure -COPD -morbid obesity -diabetes mellitus -acute on chronic diastolic heart failure -history of CVA Plan: -check D-dimer, consider CT angiogram of the chest -stop Jardiance given recurrent UTIs -change Gee catheter -blood and urine culture -continue antibiotic therapy -bronchodilators -regular insulin sliding scale, continue p.o. antidiabetic medications -continue diuresis -repeat labs in a.m. Total time spent with patient discussing and formulating plan of care: 35 minutes. This medical document was created using an electronic medical record system with [employer] dictation system. Although this document has been carefully reviewed, there may still be some phonetic and typographical errors. These areas are purely typographical due to imperfections of the software programs, and do not reflect any compromise in the patient's medical care. Plan discussed with: Patient, Other (RN) Date of Service: Mar 24, 2025 Billing Provider: VIC BERNARD NP Common Visit Codes: [id number] SAME DATE (HIGH) VIC BERNARD NP Mar 24, 2025 16:22
[2025-03-24] MEDS: glipiZIDE 5 MG TAB PO SCH (16:41)
[2025-03-24] MEDS: ONDANSETRON HCL 4 MG/2 ML VIAL IV PRN (19:44)
[2025-03-24] MEDS: HYDROmorphone HCL 2 MG/ML VL/or syr IV PRN (20:10)
[2025-03-24] MEDS: PREGABALIN CAPSULE 75 MG CAP PO SCH (21:43)
[2025-03-24] MEDS: APIXABAN 5 MG TAB PO SCH (21:44)
[2025-03-24] MEDS: ATORVASTATIN 20 MG TAB PO SCH (21:47)
[2025-03-24] MEDS: FUROSEMIDE 40 MG TAB PO SCH (21:47)
[2025-03-24] MEDS: AMIODARONE HCL 200 MG TAB PO SCH (21:47)
[2025-03-24] MEDS: ALPRAZolam 0.5 MG TAB PO PRN (21:54)
[2025-03-24] MEDS ORDERED: PATIENTS OWN MEDICATION (Simvastatin 1 TAB) PO SCH (22:00)
[2025-03-25] VITALS (11 sets, daily range): BP systolic 96–137; BP diastolic 42–56; PULSE 62–79; RESP 16–20; TEMP 97.8–99.4; O2SAT 92–100
[2025-03-25] MEDS ORDERED: HYDROmorphone HCL 2 MG/ML VL/or syr IV ONE (02:00)
[2025-03-25] MEDS: HYDROcodone-ACET 5/325MG TAB PO PRN (03:28)
[2025-03-25 08:35] LABS: Albumin 3.8 g/dL (3.2-4.8); Anion Gap 7 (5-15); BUN/Creatinine Ratio 28.3 (10.0-20.0); Calcium 9.8 mg/dL (8.7-10.4); Potassium 3.7 mmol/L (3.5-5.1); Sodium 139 mmol/L (136-145); Total Protein 6.2 g/dL (5.7-8.2)
[2025-03-25 08:36] LABS: Bilirubin, Total 0.4 mg/dL (0.2-1.0)
[2025-03-25 08:37] LABS: Alanine Aminotransferase 66 U/L (7-40); Alkaline Phosphatase 218 U/L (46-116); Blood Urea Nitrogen 36 mg/dL (9-23); Carbon Dioxide 37 mmol/L (20-31); Chloride 95 mmol/L (98-107); Glucose 164 mg/dL (74-106)
[2025-03-25 08:39] LABS: Hematocrit 31.6 % (36.0-46.0)
[2025-03-25 08:40] LABS: Hemoglobin 10.3 g/dL (12.2-16.2); Mean Corpuscular Hemoglobin 26.1 pg (28.0-32.0); Mean Corpuscular Volume 80.3 fL (80.0-100.0); Nucleated Red Blood Cells % 0.1 %
[2025-03-25] MEDS ORDERED: PATIENTS OWN MEDICATION (Metoprolol Succinate (Metoprolol Succinate Er) 1 TAB) PO SCH (10:00)
[2025-03-25] MEDS: ASPirin-EC 81 mg tab PO SCH (10:00)
[2025-03-25] MEDS ORDERED: METOPROLOL SUCCINATE XL 50 MG TAB PO SCH (10:00)
[2025-03-25] MEDS: METOPROLOL SUCCINATE XL 50 MG TAB PO SCH (10:40)
--- NOTE | 2025-03-25 13:10 | DVHPN2 ---
Subjective Patient continues to report having chest Reviewed: Care Plan, Labs, Medications Changes from previous H/P or p: No Changes General: Per HPI Eyes: No Pain, No Vision change, No Conjunctivae inflammation, No Eyelid inflammation, No Other, No Redness ENT: No Ear pain, No Ear discharge, No Nose pain, No Nose discharge, No Nose congestion, No Mouth pain, No Mouth swelling, No Throat pain, No Throat swelling, No Other Cardiovascular: Chest Pain; No Palpitations, No Orthopnea, No Paroxysmal Noc. Dyspnea, No Edema, No Lt Headedness, No Other Respiratory: No Cough, No Dry, No Shortness of breath, No SOB with excertion, No Wheezing, No Hemoptysis, No Pleuritic Pain, No Sputum, No Other Gastrointestinal: No Nausea, No Vomiting, No Abdominal Pain, No Diarrhea, No Constipation, No Melena, No Hematochezia, No Other Genitourinary: No Dysuria, No Frequency, No Incontinence, No Hematuria, No Retention, No Other Musculoskeletal: No other, No neck pain, No shoulder pain, No arm pain, No back pain, No hand pain, No leg pain, No foot pain Skin: No Rash, No Lesions, No Jaundice, No Bruising, No Other Objective Vitals Vital Signs Date Time Temp Pulse Resp B/P (MAP) Pulse Ox O2 Delivery O2 Flow Rate FiO2 03/25/25 10:40 72 110/69 03/25/25 09:00 98.6 20 95 98.6 03/25/25 08:00 Nasal Cannula* 4 36 Intake/Output Intake and Output 03/25/25 07:00 Intake Total 1100 ml Output Total 400 ml Balance 700 ml Intake Oral 500 ml Other 600 ml Output Urine Total 400 ml # Bowel Movements 1 General Appearance: Alert, Oriented X3, Cooperative, mild distress HEENT: Atraumatic, PERRLA Cardiovascular: Normal S1, Normal S2 Genitourinary: No Apparent Abnormalities (Gee catheter from home) Musculoskeletal: Normal sensory function, Normal motor function Neuro: Cranial nerves 3-12 NL Skin: Dry Psych/Mental Status: Mental status NL, Mood NL Medications Current Medications Medications Dose Ordered Sig/Julito Route Start Time Stop Time Status Last Admin Dose Admin Sodium Chloride 10 ml Q8HR IV 03/24/25 14:00 03/25/25 06:31 10 ML Ondansetron HCl 4 mg Q4HP PRN IV 03/24/25 08:15 03/25/25 00:33 4 MG Docusate Sodium 100 mg BIDPRN PRN PO 03/24/25 08:15 Acetaminophen 650 mg Q6HP PRN PO 03/24/25 08:15 Nitroglycerin 0.4 mg Q5MINP PRN SL 03/24/25 08:15 Morphine Sulfate 2 mg Q30M PRN IV 03/24/25 08:15 Cancel Diagnostic Test (Pha) 1 strip ACHS 03/24/25 11:30 03/25/25 10:42 1 STRIP Insulin Human Regular HS SC 03/24/25 22:00 03/24/25 21:51 3 UNITS Insulin Human Regular AC SC 03/24/25 11:30 03/25/25 07:28 3 UNITS Dextrose 50 ml UD PRN IV 03/24/25 08:30 Ceftriaxone Sodium 50 ml @ 100 mls/hr DAILY IV 03/24/25 10:00 03/25/25 10:38 100 MLS/HR Alprazolam 0.5 mg QID PRN PO 03/24/25 15:15 03/24/25 21:54 0.5 MG Amiodarone HCl 200 mg BID PO 03/24/25 22:00 03/25/25 10:38 200 MG Apixaban 5 mg BID PO 03/24/25 22:00 03/25/25 10:40 5 MG Aspirin 81 mg DAILY PO 03/25/25 10:00 Furosemide 40 mg BID PO 03/24/25 22:00 03/25/25 10:39 40 MG Patient Own Medication 1 tab DAILY PO 03/25/25 10:00 UNV Patient Own Medication 1 tab HS PO 03/24/25 22:00 UNV Patient Own Medication 2 tab QHSP PRN PO 03/24/25 15:15 UNV Glipizide 10 mg BIDAC PO 03/24/25 17:00 03/25/25 06:37 10 MG Buspirone HCl 15 mg QID PO 03/24/25 18:00 03/24/25 21:44 15 MG Pregabalin 75 mg TID PO 03/24/25 22:00 03/25/25 06:33 75 MG Atorvastatin Calcium 20 mg HS PO 03/24/25 22:00 03/24/25 21:47 20 MG Trazodone HCl 200 mg HSPRN PRN PO 03/24/25 18:00 Metoprolol Succinate 50 mg DAILY PO 03/25/25 10:00 03/25/25 10:40 50 MG Acetaminophen/ Hydrocodone Bitart 1 tab Q4HP PRN PO 03/24/25 20:00 03/25/25 03:28 1 TAB Hydromorphone HCl 0.5 mg Q4HPRN PRN IV 03/24/25 20:00 03/25/25 00:35 0.5 MG Laboratory Results Laboratory Tests 03/25/25 08:00 Chemistry Test 03/25/25 08:00 Albumin 3.8 g/dL (3.2-4.8) Calcium Level 9.8 mg/dL (8.7-10.4) Total Protein 6.2 g/dL (5.7-8.2) Coagulation Test 03/24/25 16:40 D-Dimer, Quantitative 0.40 mg/L FEU (0.0-0.49) LFT Test 03/25/25 08:00 Alanine Aminotransferase (ALT) 66 U/L (7-40) H Alkaline Phosphatase 218 U/L (46-116) H Aspartate Amino Transferase (AST) 104 U/L (13-40) H Total Bilirubin 0.4 mg/dL (0.2-1.0) Urinalysis Test 03/24/25 06:55 Urine Color Light-orange (Yellow) Urine Clarity Ex.turbid (Clear) Urine pH 5.0 (5.0-9.0) Urine Specific [place] 1.012 (1.001-1.035) Urine Protein 1+ (Negative) H Urine Ketones Negative (Negative) Urine Blood 2+ /uL (Negative) H Urine Nitrite 1+ (Negative) H Urine Bilirubin Negative (Negative) Urine Urobilinogen Normal mg/dL (Negative) Urine Leukocyte Esterase 3+ /uL (Negative) Urine RBC 10 /hpf (0 - 4) Urine Microscopic WBC 94 /HPF (0-5) H Urine Squamous Epithelial Cells None seen /hpf (<5) Urine Bacteria Many /hpf (None Seen) H Urine Mucus Few (None Seen) Urine Yeast (Budding) Many /hpf (None Seen) Urine Glucose Normal mg/dL (Normal) Microbiology Microbiology Date/Time Source Procedure Growth Status 03/24/25 06:55 Urine - Catheterized Urine Culture - Preliminary Resulted Labs and/or images reviewed: Labs reviewed by me, Image(s) reviewed by me Assessment/Plan Assessment/Plan Impression: -sepsis -complicated cystitis -chest pain -questionable pulmonary hypertension given severe RV failure noted on previous echocardiogram. No left-sided failure, aortic or mitral valve stenosis noted -acute on chronic hypoxic respiratory failure -COPD -morbid obesity -diabetes mellitus -acute on chronic diastolic heart failure -history of CVA Plan: Events: D-dimer negative. CT scan of the chest pending. Gee catheter still not has been changed. -change Gee catheter -blood and urine culture -continue antibiotic therapy -bronchodilators -regular insulin sliding scale, continue p.o. antidiabetic medications -continue diuresis -repeat labs in a.m. Total time spent with patient discussing and formulating plan of care: 35 minutes. This medical document was created using an electronic medical record system with [employer] dictation system. Although this document has been carefully reviewed, there may still be some phonetic and typographical errors. These areas are purely typographical due to imperfections of the software programs, and do not reflect any compromise in the patient's medical care. Plan discussed with: Patient, Other (RN) My Orders Orders - VIC [facility]ARD NP Procedure Category Date Status Time Metoprolol Xl PHA 03/25/25 In Process Succinate (Toprol Xl) 10:00 Ok To Change Gee ORDERS 03/24/25 Transmitted 16:[address] 03/25/25 Taken 10:51 Communication Order ORDERS 03/25/25 Verified 13:08 Date of Service: Mar 25, 2025 Billing Provider: VIC BERNARD NP Common Visit Codes: [id number] INP/OBS CARE(HIGH) VIC BERNARD NP Mar 25, 2025 13:10
--- NOTE | 2025-03-25 15:12 | DVH ---
Procedure: CT CHEST WITHOUT CONTRAST Reason for study/Clinical History: chest pain, pna Comparison Study: None TECHNIQUE: Multidetector CT of the chest was performed from the lung apices to the upper abdomen with out the use of intravenous contract. Axial, coronal and sagittal multiplanar reformats were performed . Radiation Dose Information: CT Dose: CTDI volume is 30.79 mGy. Dose-length product is 1134.96 mGy*cm The dose indicators for CT are the volume Computed Tomography (CT) Dose Index (CTDIvol) and the Dose Length Product (DLP), and are measured in units of mGy and mGy-cm, respectively. These indicators are not patient dose, but values generated from the CT scanner acquisition factors. The report includes radiation exposure data for exposures received during this examination. FINDINGS: Lower neck: Unremarkable. Lungs: Right basilar subsegmental atelectasis, [id number]. No suspicious pulmonary nodu le. Heart/Vascular Structures: Cardiomegaly. Coronary artery calcifications. Vascular calcifications of t he aorta. Lymph Nodes: No adenopathy Pleura: No pleural effusion or significant pneumothorax. Musculoskeletal: No acute osseous abnormality. Soft tissues: Normal. Upper abdomen: Post cholecystectomy. IMPRESSION: Limited examination secondary to patient positioning. Right basilar subsegmental atelectasis.
[2025-03-26] VITALS (10 sets, daily range): BP systolic 115–151; BP diastolic 50–76; PULSE 54–70; RESP 18–20; TEMP 97.4–98.2; O2SAT 96–100
[2025-03-26] MEDS: DOCUSATE SOD 100 MG CAP PO PRN (10:13)
--- NOTE | 2025-03-26 10:44 | DVHPN2 ---
Subjective Patient continues to report having chest Reviewed: Care Plan, Labs, Medications Changes from previous H/P or p: No Changes General: Per HPI Eyes: No Pain, No Vision change, No Conjunctivae inflammation, No Eyelid inflammation, No Other, No Redness ENT: No Ear pain, No Ear discharge, No Nose pain, No Nose discharge, No Nose congestion, No Mouth pain, No Mouth swelling, No Throat pain, No Throat swelling, No Other Cardiovascular: Chest Pain; No Palpitations, No Orthopnea, No Paroxysmal Noc. Dyspnea, No Edema, No Lt Headedness, No Other Respiratory: No Cough, No Dry, No Shortness of breath, No SOB with excertion, No Wheezing, No Hemoptysis, No Pleuritic Pain, No Sputum, No Other Gastrointestinal: No Nausea, No Vomiting, No Abdominal Pain, No Diarrhea, No Constipation, No Melena, No Hematochezia, No Other Genitourinary: No Dysuria, No Frequency, No Incontinence, No Hematuria, No Retention, No Other Musculoskeletal: No other, No neck pain, No shoulder pain, No arm pain, No back pain, No hand pain, No leg pain, No foot pain Skin: No Rash, No Lesions, No Jaundice, No Bruising, No Other Objective Vitals Vital Signs Date Time Temp Pulse Resp B/P (MAP) Pulse Ox O2 Delivery O2 Flow Rate FiO2 03/26/25 09:50 68 18 134/71 03/26/25 08:41 97.4 100 97.4 03/26/25 08:30 Nasal Cannula* 4 36 Intake/Output Intake and Output 03/26/25 07:00 Intake Total 1540 ml Output Total 2150 ml Balance -610 ml Intake Oral 1540 ml Output Urine Total 2150 ml General Appearance: Alert, Oriented X3, Cooperative, mild distress HEENT: Atraumatic, PERRLA Cardiovascular: Normal S1, Normal S2 Genitourinary: No Apparent Abnormalities (Gee catheter from home) Musculoskeletal: Normal sensory function, Normal motor function Neuro: Cranial nerves 3-12 NL Skin: Dry Psych/Mental Status: Mental status NL, Mood NL Medications Current Medications Medications Dose Ordered Sig/Julito Route Start Time Stop Time Status Last Admin Dose Admin Sodium Chloride 10 ml Q8HR IV 03/24/25 14:00 03/26/25 07:00 10 ML Ondansetron HCl 4 mg Q4HP PRN IV 03/24/25 08:15 03/26/25 10:09 4 MG Docusate Sodium 100 mg BIDPRN PRN PO 03/24/25 08:15 03/26/25 10:13 100 MG Acetaminophen 650 mg Q6HP PRN PO 03/24/25 08:15 Nitroglycerin 0.4 mg Q5MINP PRN SL 03/24/25 08:15 Morphine Sulfate 2 mg Q30M PRN IV 03/24/25 08:15 Cancel Diagnostic Test (Pha) 1 strip ACHS 03/24/25 11:30 03/26/25 06:59 1 STRIP Insulin Human Regular HS SC 03/24/25 22:00 03/25/25 22:00 6 UNITS Insulin Human Regular AC SC 03/24/25 11:30 03/26/25 06:56 2 UNITS Dextrose 50 ml UD PRN IV 03/24/25 08:30 Ceftriaxone Sodium 50 ml @ 100 mls/hr DAILY IV 03/24/25 10:00 03/26/25 10:09 100 MLS/HR Alprazolam 0.5 mg QID PRN PO 03/24/25 15:15 03/24/25 21:54 0.5 MG Amiodarone HCl 200 mg BID PO 03/24/25 22:00 03/26/25 09:18 200 MG Apixaban 5 mg BID PO 03/24/25 22:00 03/25/25 22:16 5 MG Aspirin 81 mg DAILY PO 03/25/25 10:00 Furosemide 40 mg BID PO 03/24/25 22:00 03/26/25 09:19 40 MG Patient Own Medication 1 tab DAILY PO 03/25/25 10:00 UNV Patient Own Medication 1 tab HS PO 03/24/25 22:00 UNV Patient Own Medication 2 tab QHSP PRN PO 03/24/25 15:15 UNV Glipizide 10 mg BIDAC PO 03/24/25 17:00 03/25/25 06:37 10 MG Buspirone HCl 15 mg QID PO 03/24/25 18:00 03/25/25 22:15 15 MG Pregabalin 75 mg TID PO 03/24/25 22:00 03/26/25 06:00 75 MG Atorvastatin Calcium 20 mg HS PO 03/24/25 22:00 03/25/25 22:16 20 MG Trazodone HCl 200 mg HSPRN PRN PO 03/24/25 18:00 Metoprolol Succinate 50 mg DAILY PO 03/25/25 10:00 03/26/25 09:18 50 MG Acetaminophen/ Hydrocodone Bitart 1 tab Q4HP PRN PO 03/24/25 20:00 03/25/25 17:17 1 TAB Hydromorphone HCl 0.5 mg Q4HPRN PRN IV 03/24/25 20:00 03/26/25 09:50 0.5 MG Laboratory Results Laboratory Tests 03/25/25 08:00 Urinalysis Test 03/24/25 06:55 Urine Color Light-orange (Yellow) Urine Clarity Ex.turbid (Clear) Urine pH 5.0 (5.0-9.0) Urine Specific [place] 1.012 (1.001-1.035) Urine Protein 1+ (Negative) H Urine Ketones Negative (Negative) Urine Blood 2+ /uL (Negative) H Urine Nitrite 1+ (Negative) H Urine Bilirubin Negative (Negative) Urine Urobilinogen Normal mg/dL (Negative) Urine Leukocyte Esterase 3+ /uL (Negative) Urine RBC 10 /hpf (0 - 4) Urine Microscopic WBC 94 /HPF (0-5) H Urine Squamous Epithelial Cells None seen /hpf (<5) Urine Bacteria Many /hpf (None Seen) H Urine Mucus Few (None Seen) Urine Yeast (Budding) Many /hpf (None Seen) Urine Glucose Normal mg/dL (Normal) Microbiology Microbiology Date/Time Source Procedure Growth Status 03/24/25 06:55 Urine - Catheterized Urine Culture - Preliminary Resulted Labs and/or images reviewed: Labs reviewed by me, Image(s) reviewed by me Assessment/Plan Assessment/Plan Impression: -sepsis -complicated cystitis -chest pain -questionable pulmonary hypertension given severe RV failure noted on previous echocardiogram. No left-sided failure, aortic or mitral valve stenosis noted -acute on chronic hypoxic respiratory failure -COPD -morbid obesity -diabetes mellitus -acute on chronic diastolic heart failure, right ventricular failure -history of CVA Plan: Events: CT of chest essentially unremarkable other than right-sided atelectasis. Patient continues to have substernal chest pain. Noted increased LFTs. -cardiology consultation for evaluation of cardiac hepatitis secondary to RV failure -change Gee catheter. Discussed with SUKHWINDER Khan to please change Gee catheter -blood and urine culture: Pending -continue antibiotic therapy -bronchodilators -regular insulin sliding scale, continue p.o. antidiabetic medications -continue diuresis Total time spent with patient discussing and formulating plan of care: 35 minutes. This medical document was created using an electronic medical record system with [employer] dictation system. Although this document has been carefully reviewed, there may still be some phonetic and typographical errors. These areas are purely typographical due to imperfections of the software programs, and do not reflect any compromise in the patient's medical care. Plan discussed with: Patient, Other (RN) My Orders Orders - VIC BERNARD NP Procedure Category Date Status Time Chest Without Contrast CT 03/25/25 Resulted 10:51 Communication Order ORDERS 03/25/25 Transmitted 13:08 Date of Service: Mar 26, 2025 Billing Provider: VIC BERNARD NP Common Visit Codes: [id number] INP/OBS CARE(HIGH) VIC BERNARD NP Mar 26, 2025 10:44
[2025-03-26] MEDS: KETOROLAC TROMETH 30 MG/ML 1ML VIAL IV ONE (12:30)
--- NOTE | 2025-03-26 13:08 | DVH ---
INDICATION: Eleveated LFTs TECHNIQUE: Multiple real-time sonographic images were obtained of the right upper quadrant. COMPARISON: None FINDINGS: The liver demonstrates homogenous echotexture without focal mass lesions. The liver measure s 22cm. There is no intrahepatic or extrahepatic ductal dilatation. Gallbladder removed. The right kidney measures 12 cm. The right kidney is normal in contour, size, and shape. The echogen icity is normal. There is no hydronephrosis. The pancreas is not well visualized due to overlying bowel gas. IMPRESSION: Hepatomegaly/hepatic steatosis
[2025-03-27] VITALS (11 sets, daily range): BP systolic 117–141; BP diastolic 60–73; PULSE 63–71; RESP 16–19; TEMP 97.5–98; O2SAT 97–100
--- NOTE | 2025-03-27 00:12 | DVHINCON2 ---
Date of service: Mar 26, 2025 Referring Physician Geraldo Reason for Consultation Chest pain? RV failure causing increased LFTs History of Present Illness This is a 59 year old female with a PMH of VIVI, CAD, CHF - diastolic, COPD w/LAZARA and OHS and home O2, CVA, chronic respiratory failure, DM, HTN, MT, UTI, functional quadriplegia - bed bound who was brought in by EMS on 03/24/25 with complaints of nonradiating, right sided chest pain, with associated nausea. Per EMS report, patient endorses on acute, unprovoked, and nontraumatic onset of pain, which awoke her up from her sleep on morning of admission. Chest x-ray shows cardiomegaly and diffuse increased prominence of the pulmonary vasculature. EKG is NSR at 79. Patient was admitted to the hospital. I am asked to consult on this patient. Family History: FH: lung disease G8 MOTHER FH: skin cancer G8 MOTHER Allergies: Coded Allergies: Cephalexin (Unverified Allergy, Unknown, 03/24/25) Ciprofloxacin (Unverified Allergy, Unknown, 03/24/25) Fentanyl (Unverified Allergy, Unknown, 03/24/25) Morphine (Unverified Allergy, Unknown, 03/24/25) Penicillins (Verified Allergy, Unknown, 01/15/25) Home Meds Active Scripts Furosemide (Lasix) 40 Mg Tab, 40 MG PO BID for 30 Days, #60 TAB 1 Refill Prov:JEREMY JI RESIDENT 01/09/25 Apixaban Base (ELIQUIS) 5 Mg Tab, 5 MG PO BID for 30 Days, #60 TAB 2 Refills Prov:JEREMY JI RESIDENT 01/08/25 Reported Medications Empagliflozin (Jardiance) 25 Mg Tab, 1 TAB PO DAILY 03/24/25 Glipizide (Glipizide) 5 Mg Tab, 2 PO BID 03/24/25 Pregabalin (Pregabalin) 75 Mg Cap, 1 CAP PO TID 03/24/25 Fluticasone Propionate (Nasal) (Fluticasone Propionate) 50 Mcg/Act Spr, 1 SPRAY DANIELE DAILY 02/04/25 Potassium Chloride (K-Tab) 20 Meq Tab, 2 TAB PO BID 02/04/25 Trazodone Hcl (Trazodone Hcl) 100 Mg Tab, 2 TAB PO QHSP PRN for FOR INSOMNIA 02/04/25 Ondansetron HCl (Ondansetron Hydrochloride) 4 Mg Tab, 1 TAB PO Q6HPRN PRN for NAUSEA / VOMITING 02/04/25 Buspirone Hcl (Buspirone Hcl) 15 Mg Tab, TAB PO QID 02/04/25 Losartan Potassium (Losartan Potassium) 50 Mg Tab, 1 TAB PO BID 02/04/25 Simvastatin (Simvastatin) 40 Mg Tab, 1 TAB PO HS 02/04/25 Metoprolol Succinate (Metoprolol Succinate Er) 100 Mg Tab, 1 TAB PO DAILY 02/04/25 Meclizine Hcl (Meclizine Hcl) 25 Mg Tab, 25 MG PO BIDP PRN for DIZZINESS for 30 Days, MG 12/16/24 Atorvastatin Calcium (Lipitor) 40 Mg Tab, 40 MG PO, TAB 12/16/24 Alprazolam (Alprazolam) 0.5 Mg Tab, 1 TAB PO QID PRN for ANXIETY 12/15/24 Amiodarone HCl (Amiodarone HCl) 200 Mg Tab, 1 TAB PO BID 12/15/24 Aspirin (Aspirin Low Dose) 81 Mg Tab, 1 TAB PO DAILY 12/15/24 Discontinued Reported Medications Furosemide (Furosemide) 80 Mg Tab, 1 TAB PO BID 02/04/25 Prednisone (Prednisone) 20 Mg Tab, 1 TAB PO DAILY 12/16/24 Rivaroxaban (Xarelto Tablet) 20 Mg Tb, 1 TAB PO DAILY 12/15/24 Discontinued Scripts Fluconazole (Fluconazole) 200 Mg Tab, 200 MG PO DAILY for 7 Days, #7 TAB Prov:FRANNY PEACE MD 02/04/25 Cefdinir (Cefdinir) 300 Mg Cap, 300 MG PO BID for 7 Days, #14 CAP Prov:FRANNY PEACE MD 02/04/25 Isosorbide Dinitrate (Isosorbide Dinitrate) 30 Mg Tab, 30 MG PO TID for 30 Days, #90 TAB Prov:JEREMY JI [facility] 01/08/25 Spironolactone (Spironolactone) 25 Mg Tab, 1 TAB PO DAILY for 30 Days, #30 TAB 1 Refill Prov:JEREMY JI [facility] 01/08/25 Prednisone (Prednisone) 20 Mg Tab, 20 MG PO DAILY for 5 Days, #5 MG Prov:JEREMY JI RESIDENT 01/08/25 Review of Systems All Other Systems: Reviewed and Negative (Comprehensive systems review obtained and negative except for what is stated in the HPI.) Vital Signs Vital Signs Date Time Temp Pulse Resp B/P (MAP) Pulse Ox O2 Delivery O2 Flow Rate FiO2 03/26/25 21:21 115/52 03/26/25 21:00 97.5 61 19 99 97.5 03/26/25 12:12 Nasal Cannula* 4 36 Physical Exam GENERAL: Alert and oriented x 3. No acute distress. Obese. EYES: PERRL, EOMI. Anicteric. HENT: Moist mucous membranes. LUNGS: Clear to auscultation bilaterally. CARDIOVASCULAR: Regular rate and rhythm. ABDOMEN: Soft, nontender and nondistended. EXTREMITIES: No edema. NEUROLOGIC: No focal neurological deficits. SKIN: Warm, dry. Labs/Diagnostic Data Labs Test 03/26/25 17:27 03/26/25 15:50 03/25/25 08:00 03/24/25 16:40 Range/Units POC Glucose 163 H 70-106 mg/dl White Blood Count 8.5 # 4.4-10.8 10^3/uL Red Blood Count 3.93 L 4.0-5.20 10^6/uL Hemoglobin 10.3 L 12.2-16.2 g/dL Hematocrit 31.6 L 36.0-46.0 % Mean Corpuscular Volume 80.3 80.0-100.0 fL Mean Corpuscular Hemoglobin 26.1 L 28.0-32.0 pg Mean Corpuscular Hemoglobin Concent 32.5 32.0-36.0 g/dL Red Cell Distribution Width 17.4 H 11.8-14.3 % Platelet Count 284 140-450 10^3/uL Mean Platelet Volume 8.0 6.9-10.8 fL Neutrophils (%) (Auto) 74.7 37.0-80.0 % Lymphocytes (%) (Auto) 11.0 10.0-50.0 % Monocytes (%) (Auto) 11.2 0.0-12.0 % Eosinophils (%) (Auto) 2.7 0.0-7.0 % Basophils (%) (Auto) 0.4 0.0-2.0 % Neutrophils # (Auto) 6.3 1.6-8.6 10 ^3/uL Lymphocytes # (Auto) 0.9 0.4-5.4 10 ^3/uL Monocytes # (Auto) 0.9 0-1.3 10 ^3/uL Eosinophils # (Auto) 0.2 0-0.8 10 ^3/uL Basophils # (Auto) 0 0-0.2 10 ^3/uL Nucleated Red Blood Cells 0.1 % Sodium Level 139 136-145 mmol/L Potassium Level 3.7 3.5-5.1 mmol/L Chloride Level 95 L 98-107 mmol/L Carbon Dioxide Level 37 H 20-31 mmol/L Anion Gap 7 5-15 Blood Urea Nitrogen 36 H 9-23 mg/dL Creatinine 1.27 H 0.550-1.02 mg/dL Glomerular Filtration Rate Calc 48 >90 mL/min BUN/Creatinine Ratio 28.3 H 10.0-20.0 Serum Glucose 164 H 74-106 mg/dL Calcium Level 9.8 8.7-10.4 mg/dL Total Bilirubin 0.4 0.2-1.0 mg/dL Aspartate Amino Transferase (AST) 104 H 13-40 U/L Alanine Aminotransferase (ALT) 66 H 7-40 U/L Alkaline Phosphatase 218 H 46-116 U/L Total Protein 6.2 5.7-8.2 g/dL Albumin 3.8 3.2-4.8 g/dL D-Dimer, Quantitative 0.40 0.0-0.49 mg/L FEU Test 03/24/25 06:55 03/24/25 06:38 03/24/25 02:35 03/24/25 02:32 Range/Units Urine Color Light-orange Yellow Urine Clarity Ex.turbid Clear Urine pH 5.0 5.0-9.0 Urine Specific [place] 1.012 1.001-1.035 Urine Protein 1+ H Negative Urine Ketones Negative Negative Urine Blood 2+ H Negative /uL Urine Nitrite 1+ H Negative Urine Bilirubin Negative Negative Urine Urobilinogen Normal Negative mg/dL Urine Leukocyte Esterase 3+ Negative /uL Urine RBC 10 0 - 4 /hpf Urine Microscopic WBC 94 H 0-5 /HPF Urine Squamous Epithelial Cells None seen <5 /hpf Urine Bacteria Many H None Seen /hpf Urine Mucus Few None Seen Urine Yeast (Budding) Many None Seen /hpf Urine Glucose Normal Normal mg/dL Troponin I High Sensitivity 24 </=34 ng/L B-Type Natriuretic Peptide 104.39 0-100 pg/mL Hemoglobin A1c 9.9 H <5.7 % A1C Microbiology Date/Time Source Procedure Growth Status 03/24/25 06:55 Urine - Catheterized Urine Culture - Final Escherichia coli - ESBL Complete Assessment Sepsis. Complicated cystitis. Chest pain. Questionable pulmonary hypertension given severe RV failure noted on previous echocardiogram. Acute on chronic hypoxic respiratory failure. COPD. Morbid obesity. Diabetes mellitus. Acute on chronic diastolic heart failure, right ventricular failure. History of CVA. Plan/Recommendation I agree with your ongoing assessment and care of plan. Telemetry reviewed. Dilaudid and [place] for pain management. Amiodarone. Eliquis. Aspirin, Lipitor, Metoprolol. IV antibiotics as ordered. Diuretics with Lasix. Nitro SL. Additional plan as per the hospital course. A total of 45 minutes was spent reviewing the patient record, examining the patient, making a diagnostic and therapeutic plan, discussing this plan with medical personnel, following up on diagnostic studies and following the patient for clinical stability excluding any and all procedures. At least 50% of this time was spent in direct, [id number] contact. Plan discussed with: Patient FRANTZ HOSKINS MD Mar 26, 2025 22:08
--- NOTE | 2025-03-27 10:30 | DVHPN2 ---
Subjective Patient denies having any chest pain at this time. Reviewed: Care Plan, Labs, Medications Changes from previous H/P or p: Changes General: Per HPI Eyes: No Pain, No Vision change, No Conjunctivae inflammation, No Eyelid inflammation, No Other, No Redness ENT: No Ear pain, No Ear discharge, No Nose pain, No Nose discharge, No Nose congestion, No Mouth pain, No Mouth swelling, No Throat pain, No Throat swelling, No Other Cardiovascular: Chest Pain; No Palpitations, No Orthopnea, No Paroxysmal Noc. Dyspnea, No Edema, No Lt Headedness, No Other Respiratory: No Cough, No Dry, No Shortness of breath, No SOB with excertion, No Wheezing, No Hemoptysis, No Pleuritic Pain, No Sputum, No Other Gastrointestinal: No Nausea, No Vomiting, No Abdominal Pain, No Diarrhea, No Constipation, No Melena, No Hematochezia, No Other Genitourinary: No Dysuria, No Frequency, No Incontinence, No Hematuria, No Retention, No Other Musculoskeletal: No other, No neck pain, No shoulder pain, No arm pain, No back pain, No hand pain, No leg pain, No foot pain Skin: No Rash, No Lesions, No Jaundice, No Bruising, No Other Objective Vitals Vital Signs Date Time Temp Pulse Resp B/P (MAP) Pulse Ox O2 Delivery O2 Flow Rate FiO2 03/27/25 09:12 100 Nasal Cannula 4.0 03/27/25 09:12 36 03/27/25 08:55 69 18 127/73 03/27/25 08:48 97.5 97.5 Intake/Output Intake and Output 03/27/25 07:00 Intake Total 1150 ml Output Total 1750 ml Balance -600 ml Intake Oral 1100 ml IV Total 50 ml Output Urine Total 1750 ml General Appearance: Alert, Oriented X3, Cooperative, mild distress HEENT: Atraumatic, PERRLA Cardiovascular: Normal S1, Normal S2 Genitourinary: No Apparent Abnormalities (Gee catheter from home) Musculoskeletal: Normal sensory function, Normal motor function Neuro: Cranial nerves 3-12 NL Skin: Dry Psych/Mental Status: Mental status NL, Mood NL Medications Current Medications Medications Dose Ordered Sig/Julito Route Start Time Stop Time Status Last Admin Dose Admin Sodium Chloride 10 ml Q8HR IV 03/24/25 14:00 03/27/25 06:09 10 ML Ondansetron HCl 4 mg Q4HP PRN IV 03/24/25 08:15 03/27/25 09:48 4 MG Docusate Sodium 100 mg BIDPRN PRN PO 03/24/25 08:15 03/26/25 22:51 100 MG Acetaminophen 650 mg Q6HP PRN PO 03/24/25 08:15 Nitroglycerin 0.4 mg Q5MINP PRN SL 03/24/25 08:15 Morphine Sulfate 2 mg Q30M PRN IV 03/24/25 08:15 Cancel Diagnostic Test (Pha) 1 strip ACHS 03/24/25 11:30 03/27/25 06:19 1 STRIP Insulin Human Regular HS SC 03/24/25 22:00 03/26/25 22:57 2 UNITS Insulin Human Regular AC SC 03/24/25 11:30 03/27/25 06:13 2 UNITS Dextrose 50 ml UD PRN IV 03/24/25 08:30 Alprazolam 0.5 mg QID PRN PO 03/24/25 15:15 03/24/25 21:54 0.5 MG Amiodarone HCl 200 mg BID PO 03/24/25 22:00 03/27/25 08:53 200 MG Apixaban 5 mg BID PO 03/24/25 22:00 03/27/25 08:53 5 MG Aspirin 81 mg DAILY PO 03/25/25 10:00 Furosemide 40 mg BID PO 03/24/25 22:00 03/27/25 08:54 40 MG Patient Own Medication 1 tab DAILY PO 03/25/25 10:00 UNV Patient Own Medication 1 tab HS PO 03/24/25 22:00 UNV Patient Own Medication 2 tab QHSP PRN PO 03/24/25 15:15 UNV Glipizide 10 mg BIDAC PO 03/24/25 17:00 03/25/25 06:37 10 MG Buspirone HCl 15 mg QID PO 03/24/25 18:00 03/25/25 22:15 15 MG Pregabalin 75 mg TID PO 03/24/25 22:00 03/27/25 06:08 75 MG Atorvastatin Calcium 20 mg HS PO 03/24/25 22:00 03/26/25 21:22 20 MG Trazodone HCl 200 mg HSPRN PRN PO 03/24/25 18:00 Metoprolol Succinate 50 mg DAILY PO 03/25/25 10:00 03/26/25 09:18 50 MG Acetaminophen/ Hydrocodone Bitart 1 tab Q4HP PRN PO 03/24/25 20:00 03/25/25 17:17 1 TAB Hydromorphone HCl 0.5 mg Q4HPRN PRN IV 03/24/25 20:00 03/27/25 08:55 0.5 MG Meropenem 50 ml @ 17 mls/hr Q8HR IV 03/27/25 14:00 Laboratory Results Laboratory Tests 03/25/25 08:00 Urinalysis Test 03/24/25 06:55 Urine Color Light-orange (Yellow) Urine Clarity Ex.turbid (Clear) Urine pH 5.0 (5.0-9.0) Urine Specific [place] 1.012 (1.001-1.035) Urine Protein 1+ (Negative) H Urine Ketones Negative (Negative) Urine Blood 2+ /uL (Negative) H Urine Nitrite 1+ (Negative) H Urine Bilirubin Negative (Negative) Urine Urobilinogen Normal mg/dL (Negative) Urine Leukocyte Esterase 3+ /uL (Negative) Urine RBC 10 /hpf (0 - 4) Urine Microscopic WBC 94 /HPF (0-5) H Urine Squamous Epithelial Cells None seen /hpf (<5) Urine Bacteria Many /hpf (None Seen) H Urine Mucus Few (None Seen) Urine Yeast (Budding) Many /hpf (None Seen) Urine Glucose Normal mg/dL (Normal) Microbiology Microbiology Date/Time Source Procedure Growth Status 03/24/25 06:55 Urine - Catheterized Urine Culture - Final Escherichia coli - ESBL Complete Labs and/or images reviewed: Labs reviewed by me, Image(s) reviewed by me Assessment/Plan Assessment/Plan Impression: -sepsis -complicated cystitis -chest pain -questionable pulmonary hypertension given severe RV failure noted on previous echocardiogram. No left-sided failure, aortic or mitral valve stenosis noted -acute on chronic hypoxic respiratory failure -COPD -morbid obesity -diabetes mellitus -acute on chronic diastolic heart failure, right ventricular failure -history of CVA Plan: Events: Patient found to have ESBL in the urine. Antibiotics changed to Invanz 1 g IV daily. Discussed plan of care post discharge with the patient including IV antibiotics for two weeks. -social service consultation for home health services. -cardiology consultation: Recommendations appreciated -repeat CMP -blood and urine culture: Pending -continue antibiotic therapy -bronchodilators -regular insulin sliding scale, continue p.o. antidiabetic medications -continue diuresis Total time spent with patient discussing and formulating plan of care: 35 minutes. This medical document was created using an electronic medical record system with [employer]ation system. Although this document has been carefully reviewed, there may still be some phonetic and typographical errors. These areas are purely typographical due to imperfections of the software programs, and do not reflect any compromise in the patient's medical care. Plan discussed with: Patient, Other (RN) My Orders Orders - VIC BERNARD NP Procedure Category Date Status Time LIVER US 03/26/25 Resulted 10:37 Acute Hepatitis Panel LAB 03/26/25 In Process 10:41 Comprehensive LAB 03/27/25 Logged Metabolic Panel 10:10 Meropenem 1gm Ivpb PHA 03/27/25 In Process (Merrem 1gm/ Ns) 14:00 Insert Midline ORDERS 03/27/25 Transmitted 10:10 * Director Of Media CONS 03/27/25 Transmitted Consult Ss Consult To Arrange TORRES 03/27/25 In Process Home Iv 10:10 Date of Service: Mar 27, 2025 Billing Provider: VIC BERNARD NP Common Visit Codes: [id number] INP/OBS CARE(HIGH) VIC BERNARD NP Mar 27, 2025 10:30
[2025-03-27] MEDS ORDERED: MEROPENEM 1GM IVPB 50 ML IV SCH (14:00)
[2025-03-27 16:21] LABS: Alanine Aminotransferase 31 U/L (7-40); Albumin 3.7 g/dL (3.2-4.8); Anion Gap 4 (5-15); BUN/Creatinine Ratio 30.1 (10.0-20.0); Calcium 9.3 mg/dL (8.7-10.4); Chloride 99 mmol/L (98-107); Potassium 4.4 mmol/L (3.5-5.1); Sodium 140 mmol/L (136-145); Total Protein 5.7 g/dL (5.7-8.2)
[2025-03-27 16:23] LABS: Alkaline Phosphatase 136 U/L (46-116); Bilirubin, Total < 0.2 mg/dL (0.2-1.0); Blood Urea Nitrogen 41 mg/dL (9-23); Carbon Dioxide 37 mmol/L (20-31); Glucose 226 mg/dL (74-106)
[2025-03-27] MEDS: ERTAPENEM SOD INJ 1 GM in SODIUM CHL 0.9% 50 ML IV ONE (21:50)
[2025-03-28] VITALS (7 sets, daily range): BP systolic 127–153; BP diastolic 70–72; PULSE 68–75; RESP 17–20; TEMP 97.5–98.1; O2SAT 100
--- NOTE | 2025-03-28 00:02 | DVHPN2 ---
Progress Note - Dictate Date Seen: Mar 27, 2025 Medical Necessity Reason Pt with a Central, PICC or Fol: No Subjective Patient was seen and evaluated in follow up. Patient complains of generalized discomfort. Patient denies any further chest pain. Patient is refusing multiple medications. BS are in the 220's. Telemetry reviewed. vital signs Vital Sign Date Time Temp Pulse Resp B/P (MAP) Pulse Ox O2 Delivery O2 Flow Rate FiO2 03/27/25 12:30 98.0 67 18 128/64 (85) 100 98.0 03/27/25 09:12 Nasal Cannula 4.0 03/27/25 09:12 36 Total Intake and Output 03/26/25 03/26/25 03/27/25 15:00 23:00 07:00 Intake Total 50 ml 450 ml 650 ml Output Total 650 ml 1100 ml Balance 50 ml -200 ml -450 ml medications Current Medications Medications Dose Ordered Sig/Julito Route Start Time Stop Time Status Last Admin Dose Admin Sodium Chloride 10 ml Q8HR IV 03/24/25 14:00 03/27/25 06:09 10 ML Ondansetron HCl 4 mg Q4HP PRN IV 03/24/25 08:15 03/27/25 09:48 4 MG Docusate Sodium 100 mg BIDPRN PRN PO 03/24/25 08:15 03/26/25 22:51 100 MG Acetaminophen 650 mg Q6HP PRN PO 03/24/25 08:15 Nitroglycerin 0.4 mg Q5MINP PRN SL 03/24/25 08:15 Morphine Sulfate 2 mg Q30M PRN IV 03/24/25 08:15 Cancel Diagnostic Test (Pha) 1 strip ACHS 03/24/25 11:30 03/27/25 11:49 1 STRIP Insulin Human Regular HS SC 03/24/25 22:00 03/26/25 22:57 2 UNITS Insulin Human Regular AC SC 03/24/25 11:30 03/27/25 11:49 6 UNITS Dextrose 50 ml UD PRN IV 03/24/25 08:30 Alprazolam 0.5 mg QID PRN PO 03/24/25 15:15 03/24/25 21:54 0.5 MG Amiodarone HCl 200 mg BID PO 03/24/25 22:00 03/27/25 08:53 200 MG Apixaban 5 mg BID PO 03/24/25 22:00 03/27/25 08:53 5 MG Aspirin 81 mg DAILY PO 03/25/25 10:00 Furosemide 40 mg BID PO 03/24/25 22:00 03/27/25 08:54 40 MG Patient Own Medication 1 tab DAILY PO 03/25/25 10:00 UNV Patient Own Medication 1 tab HS PO 03/24/25 22:00 UNV Patient Own Medication 2 tab QHSP PRN PO 03/24/25 15:15 UNV Glipizide 10 mg BIDAC PO 03/24/25 17:00 03/25/25 06:37 10 MG Buspirone HCl 15 mg QID PO 03/24/25 18:00 03/25/25 22:15 15 MG Pregabalin 75 mg TID PO 03/24/25 22:00 03/27/25 06:08 75 MG Atorvastatin Calcium 20 mg HS PO 03/24/25 22:00 03/26/25 21:22 20 MG Trazodone HCl 200 mg HSPRN PRN PO 03/24/25 18:00 Metoprolol Succinate 50 mg DAILY PO 03/25/25 10:00 03/26/25 09:18 50 MG Acetaminophen/ Hydrocodone Bitart 1 tab Q4HP PRN PO 03/24/25 20:00 03/25/25 17:17 1 TAB Hydromorphone HCl 0.5 mg Q4HPRN PRN IV 03/24/25 20:00 03/27/25 08:55 0.5 MG Ertapenem 1 gm/ Sodium Chloride 50 ml @ 100 mls/hr DAILY IV 03/28/25 21:00 objective GENERAL: Alert and oriented x 3. No acute distress. Obese. EYES: PERRL, EOMI. Anicteric. HENT: Moist mucous membranes. LUNGS: Clear to auscultation bilaterally. CARDIOVASCULAR: Regular rate and rhythm. ABDOMEN: Soft, nontender and nondistended. EXTREMITIES: No edema. NEUROLOGIC: No focal neurological deficits. SKIN: Warm, dry. laboratory and microbiology Laboratory Tests 03/25/25 08:00 Test 03/25/25 08:00 Range/Units Serum Glucose 164 H 74-106 mg/dL Problem List Sepsis. Complicated cystitis. Chest pain. Questionable pulmonary hypertension given severe RV failure noted on previous echocardiogram. Acute on chronic hypoxic respiratory failure. COPD. Morbid obesity. Diabetes mellitus. Acute on chronic diastolic heart failure, right ventricular failure. History of CVA. Assessment/Plan Continued all current supportive medical care. Dilaudid for pain management. Amiodarone. Eliquis. Aspirin. IV antibiotics as ordered. Diuretics with Lasix. Nitro SL. Additional plan as per the hospital course. Plan discussed with: Patient FRANTZ HOSKINS MD Mar 27, 2025 13:11
[2025-03-28 10:55] LABS: Hepatitis B Surface Antigen Negative (Negative); Hepatitis C Antibody Negative (Negative)
--- NOTE | 2025-03-28 12:36 | DVHDS2 ---
Discharge Summary Date of Admission Mar 24, 2025 at 08:11 Date of Discharge: Mar 28, 2025 Admitting Diagnosis Acute chest pain Labs/Diagnostic Data: Laboratory Results Test 03/28/25 11:33 03/27/25 14:36 03/26/25 15:50 03/25/25 08:00 POC Glucose 224 mg/dl (70-106) Sodium Level 140 mmol/L (136-145) Potassium Level 4.4 mmol/L (3.5-5.1) Chloride Level 99 mmol/L (98-107) Carbon Dioxide Level 37 mmol/L (20-31) Anion Gap 4 (5-15) Blood Urea Nitrogen 41 mg/dL (9-23) Creatinine 1.36 mg/dL (0.550-1.02) Glomerular Filtration Rate Calc 44 mL/min (>90) BUN/Creatinine Ratio 30.1 (10.0-20.0) Serum Glucose 226 mg/dL (74-106) Calcium Level 9.3 mg/dL (8.7-10.4) Total Bilirubin < 0.2 mg/dL (0.2-1.0) Aspartate Amino Transferase (AST) 17 U/L (13-40) Alanine Aminotransferase (ALT) 31 U/L (7-40) Alkaline Phosphatase 136 U/L (46-116) Total Protein 5.7 g/dL (5.7-8.2) Albumin 3.7 g/dL (3.2-4.8) Hepatitis A IgM Antibody Negative Hepatitis B Surface Antigen Negative (Negative) Hepatitis B Core IgM Antibody Negative (Negative) Hepatitis C Antibody Negative (Negative) White Blood Count 8.5 10^3/uL (4.4-10.8) Red Blood Count 3.93 10^6/uL (4.0-5.20) Hemoglobin 10.3 g/dL (12.2-16.2) Hematocrit 31.6 % (36.0-46.0) Mean Corpuscular Volume 80.3 fL (80.0-100.0) Mean Corpuscular Hemoglobin 26.1 pg (28.0-32.0) Mean Corpuscular Hemoglobin Concent 32.5 g/dL (32.0-36.0) Red Cell Distribution Width 17.4 % (11.8-14.3) Platelet Count 284 10^3/uL (140-450) Mean Platelet Volume 8.0 fL (6.9-10.8) Neutrophils (%) (Auto) 74.7 % (37.0-80.0) Lymphocytes (%) (Auto) 11.0 % (10.0-50.0) Monocytes (%) (Auto) 11.2 % (0.0-12.0) Eosinophils (%) (Auto) 2.7 % (0.0-7.0) Basophils (%) (Auto) 0.4 % (0.0-2.0) Neutrophils # (Auto) 6.3 10 ^3/uL (1.6-8.6) Lymphocytes # (Auto) 0.9 10 ^3/uL (0.4-5.4) Monocytes # (Auto) 0.9 10 ^3/uL (0-1.3) Eosinophils # (Auto) 0.2 10 ^3/uL (0-0.8) Basophils # (Auto) 0 10 ^3/uL (0-0.2) Nucleated Red Blood Cells 0.1 % Test 03/24/25 16:40 03/24/25 06:55 03/24/25 06:38 03/24/25 02:35 D-Dimer, Quantitative 0.40 mg/L FEU (0.0-0.49) Urine Color Light-orange (Yellow) Urine Clarity Ex.turbid (Clear) Urine pH 5.0 (5.0-9.0) Urine Specific [place] 1.012 (1.001-1.035) Urine Protein 1+ (Negative) Urine Ketones Negative (Negative) Urine Blood 2+ /uL (Negative) Urine Nitrite 1+ (Negative) Urine Bilirubin Negative (Negative) Urine Urobilinogen Normal mg/dL (Negative) Urine Leukocyte Esterase 3+ /uL (Negative) Urine RBC 10 /hpf (0 - 4) Urine Microscopic WBC 94 /HPF (0-5) Urine Squamous Epithelial Cells None seen /hpf (<5) Urine Bacteria Many /hpf (None Seen) Urine Mucus Few (None Seen) Urine Yeast (Budding) Many /hpf (None Seen) Urine Glucose Normal mg/dL (Normal) Troponin I High Sensitivity 24 ng/L (</=34) B-Type Natriuretic Peptide 104.39 pg/mL (0-100) Test 03/24/25 02:32 Hemoglobin A1c 9.9 % A1C (<5.7) Other Laboratory Tests 03/27/25 14:36 03/25/25 08:00 Brief Hx & Hospital Course: History of Present Illness Sophy Che is a 59-year-old female who is bedbound, with past medical history of morbid obesity, diabetes, hypertension, hyperlipidemia, COPD on home oxygen, obstructive sleep apnea, CHF, and kidney disease, who came to the hospital due to chest pain. Patient states the pain came on suddenly with no provoking incidences. She denies any shortness of breath, palpitations, or dizziness. Troponin are negative, no notable EKG changes, X-ray shows increased pulmonary vascular congestion. Course of hospitalization: Patient was given aggressive IV diuresis. Review of previous echocardiogram reveals RV failure with probable etiology of pulmonary hypertension. Cardiology consultation was obtained. Patient was noted to have increased LFTs, probable portal system congestion. Liver function tests improved after diuresis and blood pressure control. CT scan without contrast was performed with chest which was negative for any acute pathology other than mild atelectasis to the right lung. Patient's Gee catheter was exchanged. She was found to be positive for ESBL in the urine, for which initially she was treated with Meropenem for sepsis, which was switched to Invanz 1 g daily. Midline catheter was placed. Patient is no longer complaining of chest pain. Cardiology has cleared the patient for discharge. She will be continued on Invanz 1 g IV daily for a 14 day course. She will follow up with her established appointment with her PCP on 04/02/2025. With respect to her previous medication she will continue all medications previously provided. Physical examination General: Alert and Oriented x3. No acute distress. Well-nourished. Obese Eyes: EOMI. Anicteric. HENT: Moist mucous membranes. Lungs: Clear to auscultation bilaterally. No accessory muscle use. Cardiovascular: Regular rate and rhythm. No murmur. No JVD. Abdomen: Soft, non-tender and non-distended. No palpable masses. Extremities: No edema. Non-tender. Skin: No rashes or lesions. Warm. Neurologic: No focal neurological deficits. CN II-XII grossly intact, but not individually tested. Psychiatric: Cooperative. Appropriate mood and affect. Total time spent with patient discussing and formulating plan of care: 35 minutes. This medical document was created using an electronic medical record system with [employer] dictation system. Although this document has been carefully reviewed, there may still be some phonetic and typographical errors. These areas are purely typographical due to imperfections of the software programs, and do not reflect any compromise in the patient's medical care. Consults/Reason for consult Cardiology: RV dysfunction Condition at Discharge: Guarded Final Diagnosis/Problems List Sepsis secondary to ESBL in urine Secondary diagnosis: -complicated cystitis -chest pain -questionable pulmonary hypertension given severe RV failure noted on previous echocardiogram. No left-sided failure, aortic or mitral valve stenosis noted -acute on chronic hypoxic respiratory failure -COPD -morbid obesity -diabetes mellitus -acute on chronic diastolic heart failure, right ventricular failure -history of CVA Discharge Disposition: Home with Health Services Discharge Instruct/Medications Diet: Consistent carbohydrate, Cardiac 2g Na,low cholest Activity: No Restrictions, As Tolerated Follow Up/Referral: PCP with schedule appointment on 04/02/25 Medications: Invanz 1 gm IV daily Cont all home medications Scheduled Amiodarone HCl (Amiodarone HCl), 1 TAB PO BID, (Reported) Apixaban Base (Eliquis), 5 MG PO BID Aspirin (Aspirin Low Dose), 1 TAB PO DAILY, (Reported) Buspirone Hcl (Buspirone Hcl), TAB PO QID, (Reported) Empagliflozin (Jardiance), 1 TAB PO DAILY, (Reported) Fluticasone Propionate (Nasal) (Fluticasone Propionate), 1 SPRAY DANIELE DAILY, (Reported) Furosemide (Lasix), 40 MG PO BID Glipizide (Glipizide), 2 PO BID, (Reported) Losartan Potassium (Losartan Potassium), 1 TAB PO BID, (Reported) Metoprolol Succinate (Metoprolol Succinate Er), 1 TAB PO DAILY, (Reported) Potassium Chloride (K-Tab), 2 TAB PO BID, (Reported) Pregabalin (Pregabalin), 1 CAP PO TID, (Reported) Simvastatin (Simvastatin), 1 TAB PO HS, (Reported) Scheduled PRN Alprazolam (Alprazolam), 1 TAB PO QID PRN for ANXIETY, (Reported) Meclizine Hcl (Meclizine Hcl), 25 MG PO BIDP PRN for DIZZINESS, (Reported) Ondansetron HCl (Ondansetron Hydrochloride), 1 TAB PO Q6HPRN PRN for NAUSEA / VOMITING, (Reported) Trazodone Hcl (Trazodone Hcl), 2 TAB PO QHSP PRN for FOR INSOMNIA, (Reported) Miscellaneous Medications Atorvastatin Calcium (Lipitor), 40 MG PO, (Reported) Discontinued Medications Cefdinir (Cefdinir), 300 MG PO BID Fluconazole (Fluconazole), 200 MG PO DAILY Furosemide (Furosemide), 1 TAB PO BID, (Reported) Isosorbide Dinitrate (Isosorbide Dinitrate), 30 MG PO TID Prednisone (Prednisone), 1 TAB PO DAILY, (Reported) Prednisone (Prednisone), 20 MG PO DAILY Rivaroxaban (Xarelto Tablet), 1 TAB PO DAILY, (Reported) Spironolactone (Spironolactone), 1 TAB PO DAILY 36 Discharge Statement: "Patient was advised to return to the ER or call 911 if any headaches, dizziness, shortness of breath, chest pain, abdominal pain, bleeding, fevers, or worsening of medical condition. Patient was counseled about treatment plan, medications, possible side effects, patientverbalized understanding. All questions were answered to the best of my ability. This discharge took greater then 30 minutes in planning, reviewing documentation, counseling the patient, and discussing with other team members." ASSESSMENT ASSESSMENT Assessment Sepsis secondary to ESBL in urine Date of Service: Mar 28, 2025 Billing Provider: VIC BERNARD NP Common Visit Codes: 11004-QNN/OBS DISCH DAY >30min VIC BERNARD NP Mar 28, 2025 12:36
[2025-03-28] MEDS: FUROSEMIDE 20 MG/2 ML VIAL IV ONE (15:06)
[2025-03-28] MEDS ORDERED: ERTAPENEM SOD INJ 1 GM in SODIUM CHL 0.9% 50 ML IV SCH (21:00)
--- NOTE | 2025-03-28 23:54 | DVHPN2 ---
Progress Note - Dictate Date Seen: Mar 28, 2025 Medical Necessity Reason Pt with a Central, PICC or Fol: No Subjective Patient was seen and evaluated in follow up. Patient has no new complaints at this time. Patient denies any cardiac symptoms. Patient is cardiac stable for discharge. Telemetry reviewed. vital signs Vital Sign Date Time Temp Pulse Resp B/P (MAP) Pulse Ox O2 Delivery O2 Flow Rate FiO2 03/28/25 09:00 97.5 71 17 148/70 (96) 100 97.5 03/28/25 08:00 Nasal Cannula* 4 36 Total Intake and Output 03/27/25 03/27/25 03/28/25 15:00 23:00 07:00 Intake Total 50 ml 850 ml 580 ml Output Total 1300 ml 2000 ml Balance 50 ml -450 ml -1420 ml medications Current Medications Medications Dose Ordered Sig/Julito Route Start Time Stop Time Status Last Admin Dose Admin Sodium Chloride 10 ml Q8HR IV 03/24/25 14:00 03/28/25 06:07 10 ML Ondansetron HCl 4 mg Q4HP PRN IV 03/24/25 08:15 03/28/25 11:30 4 MG Docusate Sodium 100 mg BIDPRN PRN PO 03/24/25 08:15 03/26/25 22:51 100 MG Acetaminophen 650 mg Q6HP PRN PO 03/24/25 08:15 Nitroglycerin 0.4 mg Q5MINP PRN SL 03/24/25 08:15 Morphine Sulfate 2 mg Q30M PRN IV 03/24/25 08:15 Cancel Diagnostic Test (Pha) 1 strip ACHS 03/24/25 11:30 03/28/25 11:48 1 STRIP Insulin Human Regular HS SC 03/24/25 22:00 03/27/25 22:53 4 UNITS Insulin Human Regular AC SC 03/24/25 11:30 03/28/25 11:46 6 UNITS Dextrose 50 ml UD PRN IV 03/24/25 08:30 Alprazolam 0.5 mg QID PRN PO 03/24/25 15:15 03/24/25 21:54 0.5 MG Amiodarone HCl 200 mg BID PO 03/24/25 22:00 03/28/25 08:41 200 MG Apixaban 5 mg BID PO 03/24/25 22:00 03/28/25 08:42 5 MG Aspirin 81 mg DAILY PO 03/25/25 10:00 Furosemide 40 mg BID PO 03/24/25 22:00 03/28/25 08:42 40 MG Patient Own Medication 1 tab DAILY PO 03/25/25 10:00 UNV Patient Own Medication 1 tab HS PO 03/24/25 22:00 UNV Patient Own Medication 2 tab QHSP PRN PO 03/24/25 15:15 UNV Glipizide 10 mg BIDAC PO 03/24/25 17:00 03/25/25 06:37 10 MG Buspirone HCl 15 mg QID PO 03/24/25 18:00 03/25/25 22:15 15 MG Pregabalin 75 mg TID PO 03/24/25 22:00 03/28/25 06:06 75 MG Atorvastatin Calcium 20 mg HS PO 03/24/25 22:00 03/27/25 21:45 20 MG Trazodone HCl 200 mg HSPRN PRN PO 03/24/25 18:00 Metoprolol Succinate 50 mg DAILY PO 03/25/25 10:00 03/26/25 09:18 50 MG Acetaminophen/ Hydrocodone Bitart 1 tab Q4HP PRN PO 03/24/25 20:00 03/25/25 17:17 1 TAB Hydromorphone HCl 0.5 mg Q4HPRN PRN IV 03/24/25 20:00 03/28/25 08:44 0.5 MG Ertapenem 1 gm/ Sodium Chloride 50 ml @ 100 mls/hr DAILY IV 03/28/25 21:00 objective GENERAL: Alert and oriented x 3. No acute distress. Obese. EYES: PERRL, EOMI. Anicteric. HENT: Moist mucous membranes. LUNGS: Clear to auscultation bilaterally. CARDIOVASCULAR: Regular rate and rhythm. ABDOMEN: Soft, nontender and nondistended. EXTREMITIES: No edema. NEUROLOGIC: No focal neurological deficits. SKIN: Warm, dry. laboratory and microbiology Laboratory Tests 03/27/25 14:36 03/25/25 08:00 Test 03/27/25 14:36 Range/Units Serum Glucose 226 H 74-106 mg/dL Problem List Sepsis. Complicated cystitis. Chest pain. Questionable pulmonary hypertension given severe RV failure noted on previous echocardiogram. Acute on chronic hypoxic respiratory failure. COPD. Morbid obesity. Diabetes mellitus. Acute on chronic diastolic heart failure, right ventricular failure. History of CVA. Assessment/Plan Continued all current supportive medical care. Dilaudid for pain management. Amiodarone. Eliquis. IV antibiotics as ordered. Diuretics with Lasix. Nitro SL. Additional plan as per the hospital course. Dietary Evaluation Review Comments[facility] Monitor lab values, collect lipid profile and Monitor kidney function Weight management upon D/C Expected Outcomes/Goals: controlled DM, free from uremic symptons, gradual wt loss. Plan discussed with: Patient FRANTZ HOSKINS MD Mar 28, 2025 12:44
== END 2025-03-28 15:45 | disposition home or self-care (01) | DRG 871 ==
LOC: ER 02:12 → EDBD 02:12 → OVERFLOW 08:11 → TELE-EAST 23:09
PROVIDERS: ADMIT Nurse Practitioner Acute Care; ATTEND Nurse Practitioner Acute Care
PROC: 5A09357 Assistance with Respiratory Ventilation, Less than 24 Consecutive Hours, Continuous Positive Airway Pressure (ICD-10-PCS; 2025-03-24)
PROC: 5A09357 Assistance with Respiratory Ventilation, Less than 24 Consecutive Hours, Continuous Positive Airway Pressure (ICD-10-PCS; 2025-03-25)
PROC: 05HC33Z Insertion of Infusion Device into Left Basilic Vein, Percutaneous Approach (ICD-10-PCS; principal; 2025-03-27)
PROC: B54NZZA Ultrasonography of Left Upper Extremity Veins, Guidance (ICD-10-PCS; 2025-03-27)
DX: A41.89 Other specified sepsis (principal); I50.33 Acute on chronic diastolic (congestive) heart failure; J96.21 Acute and chronic respiratory failure with hypoxia; J44.0 Chronic obstructive pulmonary disease with (acute) lower respiratory infection; E66.2 Morbid (severe) obesity with alveolar hypoventilation; Z68.43 Body mass index [BMI] 50.0-59.9, adult; J98.11 Atelectasis; I27.29 Other secondary pulmonary hypertension; E11.65 Type 2 diabetes mellitus with hyperglycemia; I11.0 Hypertensive heart disease with heart failure; I05.0 Rheumatic mitral stenosis; I25.10 Atherosclerotic heart disease of native coronary artery without angina pectoris; Z99.81 Dependence on supplemental oxygen; E78.5 Hyperlipidemia, unspecified; N30.90 Cystitis, unspecified without hematuria; Z86.73 Personal history of transient ischemic attack (TIA), and cerebral infarction without residual deficits; Z80.8 Family history of malignant neoplasm of other organs or systems; Z74.01 Bed confinement status; Z90.49 Acquired absence of other specified parts of digestive tract; Z88.5 Allergy status to narcotic agent; Z88.0 Allergy status to penicillin
CPT/HCPCS: 36415; 71045; 71250; 76705; 80048; 80053; 80074; 81001; 82962; 83036; 83880; 84484; 85025; 85379; 87086; 87088; 87186; 93005; 94660; 96365; 96372; 99291; G0378; J1335; J1815; J1885; J1956; J2405

== ENCOUNTER 2025-04-13 11:13 | Inpatient (IN) | payer MEDICARE, MEDICAID ==
[~2025-04-13] VITALS: Ht 172.7 cm; Wt 182.5 kg
[2025-04-13] VITALS (7 sets, daily range): BP systolic 127–153; BP diastolic 42–50; PULSE 80–88; RESP 18–22; TEMP 98.8–99.1; O2SAT 94–98
[~2025-04-13 11:13] MED LIST changes: +BACL10TA PO; -CEFD300C2 PO; +EMPA1TAB3 PO; -FLUC200T50 PO; -FURO80TA3 PO; +GLIP5TAB21 PO; +LEVO500T91 PO; +LIDO4PAD8 TOP; +LUBI24CA12 PO; +PANT40T PO; -PRED20TA2 PO; +PREG75CA90 PO; -RIV20T PO
--- NOTE | 2025-04-13 11:35 | ECG ---
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
--- NOTE | 2025-04-13 12:21 | ED.PDOC ---
History of Present Illness HPI Comments 59-year-old female brought by paramedics from home for generalized weakness feeling sleepy more altered than normal. Last seen normal yesterday as per family. They noticed this morning that she has been answering questions differently. Patient is morbidly obese on 3 L oxygen at home. When paramedics arrived her saturation was 83% on 3 L for which they laced non-rebreather increased the saturation 100%. Heart rate was 85 on arrival. History of CHF hypertension diabetes COPD. She is able to answering all questions attentive. Denies any other symptoms. Chief Complaint: ALOC Time Seen by MD: 11:27 Primary Care Provider: CHRISTIAN Reviewed Notes: Nurses Notes, Medications, Allergies Allergies: Coded Allergies: Cephalexin (Unverified Allergy, Unknown, 03/24/25) Ciprofloxacin (Unverified Allergy, Unknown, 03/24/25) Fentanyl (Unverified Allergy, Unknown, 03/24/25) Morphine (Unverified Allergy, Unknown, 03/24/25) Penicillins (Verified Allergy, Unknown, 01/15/25) Home Meds Active Scripts Furosemide (Lasix) 40 Mg Tab, 40 MG PO BID for 30 Days, #60 TAB 1 Refill Prov:JEREMY JI RESIDENT 01/09/25 Apixaban Base (ELIQUIS) 5 Mg Tab, 5 MG PO BID for 30 Days, #60 TAB 2 Refills Prov:JEREMY JI RESIDENT 01/08/25 Reported Medications Empagliflozin (Jardiance) 25 Mg Tab, 1 TAB PO DAILY 03/24/25 Glipizide (Glipizide) 5 Mg Tab, 2 PO BID 03/24/25 Pregabalin (Pregabalin) 75 Mg Cap, 1 CAP PO TID 03/24/25 Fluticasone Propionate (Nasal) (Fluticasone Propionate) 50 Mcg/Act Spr, 1 SPRAY DANIELE DAILY 02/04/25 Potassium Chloride (K-Tab) 20 Meq Tab, 2 TAB PO BID 02/04/25 Trazodone Hcl (Trazodone Hcl) 100 Mg Tab, 2 TAB PO QHSP PRN for FOR INSOMNIA 02/04/25 Ondansetron HCl (Ondansetron Hydrochloride) 4 Mg Tab, 1 TAB PO Q6HPRN PRN for NAUSEA / VOMITING 02/04/25 Buspirone Hcl (Buspirone Hcl) 15 Mg Tab, TAB PO QID 02/04/25 Losartan Potassium (Losartan Potassium) 50 Mg Tab, 1 TAB PO BID 02/04/25 Simvastatin (Simvastatin) 40 Mg Tab, 1 TAB PO HS 02/04/25 Metoprolol Succinate (Metoprolol Succinate Er) 100 Mg Tab, 1 TAB PO DAILY 02/04/25 Meclizine Hcl (Meclizine Hcl) 25 Mg Tab, 25 MG PO BIDP PRN for DIZZINESS for 30 Days, MG 12/16/24 Atorvastatin Calcium (Lipitor) 40 Mg Tab, 40 MG PO, TAB 12/16/24 Alprazolam (Alprazolam) 0.5 Mg Tab, 1 TAB PO QID PRN for ANXIETY 12/15/24 Amiodarone HCl (Amiodarone HCl) 200 Mg Tab, 1 TAB PO BID 12/15/24 Aspirin (Aspirin Low Dose) 81 Mg Tab, 1 TAB PO DAILY 12/15/24 Information Source: Patient, Emergency Med Personnel Mode of Arrival: EMS Severity: Moderate Timing: Hours Past Medical History PAST MEDICAL HISTORY: Asthma, CAD, CHF, COPD, CVA, DM, HTN, MD, UTI'S Surgical History: Denies all surgeries GROUND SUPPORT EQUIPMENT FITTER History: Denies all GROUND SUPPORT EQUIPMENT FITTER Hx Family History Family History: Reviewed,noncontributory to illness, Unknown Social History Smoker: Non-Smoker Alcohol: Denies ETOH Use Drugs: Denies Drug Use Lives In: Assisted Care Constitutional: reports: weakness; denies: chills, diaphoresis, fatigue, fever, malaise, sweats, others EENTM: denies: blurred vision, double vision, ear bleeding, ear discharge, ear drainage, ear pain, ear ringing, eye pain, eye redness, hearing loss, mouth pain, mouth swelling, nasal discharge, nose bleeding, nose congestion, nose pain, photophobia, tearing, throat pain, throat swelling, voice changes, others Respiratory: denies: cough, hemoptysis, orthopnea, SOB at rest, shortness of breath, SOB with excertion, stridor, wheezing, others Cardiovascular: denies: chest pain, dizzy spells, diaphoresis, Dyspnea on exertion, edema, irregular heart beat, left arm pain, lightheadedness, palpitations, PND, syncope, others Gastrointestinal: denies: abdomen distended, abdominal pain, blood streaked bowels, constipated, diarrhea, dysphagia, difficulty swallowing, hematemesis, melena, nausea, poor appetite, poor fluid intake, rectal bleeding, rectal pain, vomiting, others Genitourinary: denies: abnormal vagina bleeding, burning, dyspareunia, dysuria, flank pain, frequency, hematuria, incontinence, pain, , vagina discharge, urgency, others Neurological: denies: dizziness, fainting, headache, left sided numbness, left sided weakness, numbness, paresthesia, pre-existing deficit, right sided numbness, right sided weakness, seizure, speech problems, tingling, tremors, weakness, others Musculoskeletal: denies: back pain, gout, joint pain, joint swelling, muscle pain, muscle stiffness, neck pain, others Integumetry: denies: bruises, change in color, change in hair/nails, dryness, laceration, lesions, lumps, rash, wounds, others Allergic/Immunocompromised: denies: Difficulty Healing, Frequent Infections, Hives, Itching, others Hematologic/Lymphatic: denies: anemia, blood clots, easy bleeding, easy bruising, swollen glands, others Endocrine: denies: excessive hunger, excessive sweating, excessive thirst, excessive urination, flushing, intolerance to cold, intolerance to heat, unexplained weight gain, unexplained weight loss, others Psychiatric: denies: anxiety, bipolar disorder, depression, hopeless, panic disorder, schizophrenia, sleepless, suicidal, others Physical Exam General Appearance: Moderate Distress, Obese HEENT: Normal ENT Inspection, Pharynx Normal, TMs Normal Neck: Full Range of Motion, Non-Tender, Normal, Normal Inspection Respiratory: Other (Coarse breath sounds) Cardiovascular: No Edema, No JVD, No Murmur, No Gallop, Normal Peripheral Pulses, Regular Rate/Rhythm Breast Exam: Deferred Gastrointestinal: Soft Genitalia: Deferred Pelvic: Deferred Rectal: Deferred Extremities: No calf tenderness Musculoskeletal : Apperance: Normal Neurologic: Alert Cerebellar Function: NOT DONE Reflexes: NOT DONE Skin: Normal Color Peripheral Pulses: 3+ Radial (R), 3+ Radial (L) Lymphatic: No Adenopathy Was a procedure done? Was a procedure done?: No EKG EKG : Pulse Rate (adult): 85 Cardiac Rhythm: NSR Differential Dx Considerations may include: Sepsis Electrolyte imbalance X-Ray, Labs, Meds, VS Vital Signs Date Time Temp Pulse Resp B/P (MAP) Pulse Ox O2 Delivery O2 Flow Rate FiO2 04/13/25 11:40 99.0 83 20 155/96 100 99.0 04/13/25 11:31 85 Patient alert. Answering all questions. Mild fever. Placed on oxygen. Possible sepsis. Morbidly obese. No sign of any head trauma. CT of the head isn't warranted at the present moment because she is appropriate. Possible urosepsis. Explained to the patient. Continue monitoring. Time of 1ST Reevaluation: 12:18 Reevaluation 1ST: Unchanged Patient Education/Counseling: Diagnosis, Treatment, Prognosis Family Education/Counseling: No Family Present SEPSIS Sepsis Screen Date sepsis recognized/suspect: Apr 13, 2025 Time Sepsis recognized/suspect: 1149 Recent Procedure: No On Antibiotic Therapy: No Respiratory Rate >20: No Heart Rate >90: No Temp<36 C (96.8 F) or >38.3 C: No SBP <90 or MAP <65 mmHG: No New Acute Mental Status Change: No Is the patient on CPAP, BIPAP,: No Physician Orders Troponin-I Hs (04/13/25 11:27) Complete Blood Count (04/13/25 11:27) Urinalysis (04/13/25 11:27) Basic Metabolic Panel (04/13/25 11:27) Ammonia (04/13/25 11:32) Blood Culture (04/13/25 11:32) Lactic Acid W/ Reflex Order (04/13/25 11:32) Vancomycin 1gm/200ml Pm (04/13/25 11:45) Sulfameth-Trimeth 80/16mg-Ml (Bactrim) (04/13/25 11:45) Sodium Chloride 0.9% (04/13/25 11:45) Sodium Chloride 0.9% (04/13/25 11:45) Vital Signs Date Time Temp Pulse Resp B/P (MAP) Pulse Ox O2 Delivery O2 Flow Rate FiO2 04/13/25 11:40 99.0 83 20 155/96 100 99.0 04/13/25 11:31 85 Departure 1 Departure Time of Disposition: 12:19 Impression: Primary Impression: Sepsis, unspecified organism Qualified Codes: A41.9 - Sepsis, unspecified organism Additional Impressions: COPD exacerbation Uncontrolled diabetes mellitus Qualified Codes: E13.65 - Other specified diabetes mellitus with hyperglycemia Disposition: ADMITTED INPATIENT Admit to: Med Surg Condition: Guarded Critical Care Note Critical Care Time?: Yes (90 min-critical care time only) Stability Stability form required: No Heart Score Heart Score: Heart Score Response (Comments) Value History Slightly Suspicious 0 EKG Normal 0 Age 45-64 1 Risk Factors >3 or Hx ASHD 2 Troponin Normal limit 0 Total 3 ROLAND ALVARADO MD Apr 13, 2025 12:20
[2025-04-13 13:02] LABS: Chloride 105 mmol/L (98-107); Sodium 140 mmol/L (136-145)
[2025-04-13 13:03] LABS: Anion Gap 6 (5-15); Carbon Dioxide 29 mmol/L (20-31)
[2025-04-13 13:04] LABS: Calcium 9.3 mg/dL (8.7-10.4)
[2025-04-13 13:05] LABS: Potassium 5.5 mmol/L (3.5-5.1)
[2025-04-13 13:09] LABS: BUN/Creatinine Ratio 17.4 (10.0-20.0); Blood Urea Nitrogen 26 mg/dL (9-23); Glucose 176 mg/dL (74-106)
[2025-04-13 14:01] LABS: Hemoglobin 9.4 g/dL (12.2-16.2); Nucleated Red Blood Cells % 0.1 %
[2025-04-13 14:02] LABS: Hematocrit 30.9 % (36.0-46.0); Mean Corpuscular Hemoglobin 26.3 pg (28.0-32.0); Mean Corpuscular Volume 86.8 fL (80.0-100.0)
--- NOTE | 2025-04-13 14:14 | DVHHP2 ---
History of Present Illness Reason for Visit: Generalized weakness History of Present Illness 59-year-old female with past medical history of CHF, COPD, asthma, CAD, CVA, diabetes, hypertension, and recurrent UTIs presents with generalized weakness, sleepiness, and confusion. Information is limited from the patient; however, ED records indicate that her last known normal was yesterday. Family reports she appeared more confused today. Patient states she woke up feeling confused and more short of breath than usual, with symptoms starting at approximately 2 AM. She uses 3 L nasal cannula oxygen at home but was found to have an oxygen saturation of 89% on her usual flow rate. In the ED, she was placed on Oximizer , which improved oxygen saturation to 95%. She is morbidly obese, lying in bed on her side. She has a Mayo catheter in place; exchange history is unclear. In the ED, she was given Bactrim and vancomycin. Labs showed potassium 5.5, creatinine 1.4, sodium 126, glucose 176, and otherwise unremarkable CBC/CMP. She lives at home with her son. She follows with Dr. Mcgrath (cardiology) and Dr. Hernandez (pulmonology per patient). Given her altered mental status and hypoxia, she will be admitted for further evaluation. Planned workup includes CT scan of the brain, chest X-ray, and repeat UA given the presence of a Mayo catheter will admit for further workup and care . Past Medical History See HPI above Past Surgical History See HPI above Family History Limited her family history due to mental status Past Social History Patient denies smoking drinking or drug use Review of Systems Review of Systems Limited ROS due to mental status Constitutional: No: Fever, Chills, Sweats, Weakness, Malaise, Other Respiratory: Shortness of breath, SOB with excertion Neurological: Weakness, Confusion Allergies: Coded Allergies: Cephalexin (Unverified Allergy, Unknown, 03/24/25) Ciprofloxacin (Unverified Allergy, Unknown, 03/24/25) Fentanyl (Unverified Allergy, Unknown, 03/24/25) Morphine (Unverified Allergy, Unknown, 03/24/25) Penicillins (Verified Allergy, Unknown, 01/15/25) Medications Current Medications Medications Dose Ordered Sig/Julito Route Start Time Stop Time Status Last Admin Dose Admin Ondansetron HCl 4 mg Q4HP PRN IV 04/13/25 14:15 UNV Docusate Sodium 100 mg BIDPRN PRN PO 04/13/25 14:15 UNV Enoxaparin Sodium 40 mg DAILY SC 04/14/25 10:00 UNV Morphine Sulfate 2 mg Q4HPRN PRN IV 04/13/25 14:15 UNV Nitroglycerin 0.4 mg Q5MINP PRN SL 04/13/25 14:15 UNV Albuterol 2.5 mg Q4HPRN PRN NEB 04/13/25 14:15 UNV Ipratropium [place] 0.5 mg Q4HPRN PRN NEB 04/13/25 14:15 UNV Vancomycin HCl 0 ml @ 0 mls/hr UD IV 04/13/25 14:15 UNV Exam Vital Signs Vital Signs Date Time Temp Pulse Resp B/P (MAP) Pulse Ox O2 Delivery O2 Flow Rate FiO2 04/13/25 13:05 80 04/13/25 12:28 98 Oxymizer 8 N/A 04/13/25 12:19 18 04/13/25 12:00 99.1 127/42 (70) 99.1 General Appearance: Alert, Cooperative, mild distress, Other (Morbidly obese) HEENT: Atraumatic, PERRLA, EOMI, Mucous membr. moist/pink Respiratory: Other (Diminished lung sounds throughout) Cardiovascular: Regular rate, Normal S1, Normal S2, No murmurs Abdominal: Normal bowel sounds, Soft, No tenderness, No hepatospenomegaly, No masses Extremities: No clubbing, No cyanosis, No edema, Normal pulses, No tenderness/swelling Skin: No rashes, No breakdown, No significant lesion Neuro: Other (Neuro nonfocal) Psych/Mental Status: Mental status NL, Mood NL Labs/Xrays I reviewed labs, imaging CT scan abdomen pelvis, EKG and all diagnostic studies on this patient from ED records and the medical chart Labs Test 04/13/25 13:39 04/13/25 12:35 Range/Units White Blood Count 7.2 4.4-10.8 10^3/uL Red Blood Count 3.56 L 4.0-5.20 10^6/uL Hemoglobin 9.4 L 12.2-16.2 g/dL Hematocrit 30.9 L 36.0-46.0 % Mean Corpuscular Volume 86.8 80.0-100.0 fL Mean Corpuscular Hemoglobin 26.3 L 28.0-32.0 pg Mean Corpuscular Hemoglobin Concent 30.3 L 32.0-36.0 g/dL Red Cell Distribution Width 16.9 H 11.8-14.3 % Platelet Count 268 140-450 10^3/uL Mean Platelet Volume 7.8 6.9-10.8 fL Neutrophils (%) (Auto) 72.7 37.0-80.0 % Lymphocytes (%) (Auto) 14.4 10.0-50.0 % Monocytes (%) (Auto) 9.6 0.0-12.0 % Eosinophils (%) (Auto) 2.8 0.0-7.0 % Basophils (%) (Auto) 0.5 0.0-2.0 % Neutrophils # (Auto) 5.2 1.6-8.6 10 ^3/uL Lymphocytes # (Auto) 1.0 0.4-5.4 10 ^3/uL Monocytes # (Auto) 0.7 0-1.3 10 ^3/uL Eosinophils # (Auto) 0.2 0-0.8 10 ^3/uL Basophils # (Auto) 0 0-0.2 10 ^3/uL Nucleated Red Blood Cells 0.1 % Sodium Level 140 136-145 mmol/L Potassium Level 5.5 H 3.5-5.1 mmol/L Chloride Level 105 98-107 mmol/L Carbon Dioxide Level 29 20-31 mmol/L Anion Gap 6 5-15 Blood Urea Nitrogen 26 H 9-23 mg/dL Creatinine 1.49 H 0.550-1.02 mg/dL Glomerular Filtration Rate Calc 40 >90 mL/min BUN/Creatinine Ratio 17.4 10.0-20.0 Serum Glucose 176 H 74-106 mg/dL Calcium Level 9.3 8.7-10.4 mg/dL Ammonia 44 H 11-32 umol/L Troponin I High Sensitivity 10 </=34 ng/L SEPSIS Sepsis Screen Date sepsis recognized/suspect: Apr 13, 2025 Time Sepsis recognized/suspect: 1226 Recent Procedure: No On Antibiotic Therapy: No Respiratory Rate >20: No Heart Rate >90: No Temp<36 C (96.8 F) or >38.3 C: No SBP <90 or MAP <65 mmHG: No New Acute Mental Status Change: No Is the patient on CPAP, BIPAP,: No Physician Orders Urinalysis (04/13/25 11:27) Blood Culture (04/13/25 11:32) Lactic Acid W/ Reflex Order (04/13/25 11:32) Sulfameth-Trimeth 80/16mg-Ml (Bactrim) (04/13/25 11:45) Sodium Chloride 0.9% (04/13/25 11:45) *Consult Dr.Mukeshchandra Pederson (04/13/25 14:06) *Consult / (04/13/25 14:06) *Dr. [facility] (04/13/25 14:06) Sodium Zirconium Cyclosilicate (Lokelma) (04/13/25 14:15) Admit (04/13/25 14:06) Allergies (04/13/25 14:06) Code Status (04/13/25 14:06) Oxygen Per Hour (04/13/25 14:06) Ondansetron Hcl (Zofran) (04/13/25 14:15) Docusate Sodium Capsule (Colace Capsule) (04/13/25 14:15) Enoxaparin Sodium (Lovenox) (04/14/25 10:00) Complete Blood Count (04/14/25 04:00) Comprehensive Metabolic Panel (04/14/25 04:00) Cardiac Diet-2gna,Lofat,Lochol (04/13/25 Dinner) Condition: Stable (04/13/25 14:06) Maintain Bed Rest (04/13/25 14:06) Morphine Sulfate Injection (04/13/25 14:15) Sequential Compression Device (04/13/25 ) Nitroglycerin Sublingual (Ntrostat Subli (04/13/25 14:15) Stat Ekg For Chest Pain (04/13/25 14:06) Notify Md Of Changes From Base (04/13/25 14:06) Slab Conditioner Supervisor For 24 Hours (04/13/25 14:06) Emergency Dysrhythmia Protocol (04/13/25 14:06) Rhythm Strips Once Every Shift (04/13/25 14:06) Oxygen By Nasal Cannula (04/13/25 14:06) Urinalysis (04/13/25 14:06) Chest Xray 1 View (04/13/25 14:06) Troponin-I Hs (04/13/25 14:06) Troponin-I Hs (04/13/25 15:06) Troponin-I Hs (04/13/25 17:06) B-Type Natriuretic Peptide (04/13/25 14:06) Albuterol Medneb (Ventolin Medneb) (04/13/25 14:15) Ipratropium Medneb (Atrovent Medneb) (04/13/25 14:15) Cont Med Neb Intial Tx (04/13/25 14:06) Vancomycin Per Pharmacy (04/13/25 14:15) Ceftriaxone Ivpb Rocephin (04/13/25 14:15) Ceftriaxone Ivpb Rocephin (04/14/25 09:00) Head Without Contrast (04/13/25 14:13) Vital Signs Date Time Temp Pulse Resp B/P (MAP) Pulse Ox O2 Delivery O2 Flow Rate FiO2 04/13/25 13:05 80 04/13/25 12:28 98 Oxymizer 8 N/A 04/13/25 12:20 85 04/13/25 12:19 80 18 98 Oxymizer 8 N/A 04/13/25 12:00 99.1 80 19 127/42 (70) 98 99.1 04/13/25 11:40 99.0 83 20 155/96 100 99.0 04/13/25 11:31 85 Laboratory Tests Test 04/13/25 13:39 White Blood Count 7.2 10^3/uL (4.4-10.8) Assessment/Plan Assessment/Plan 59 yr old female with Acute on chronic hypoxic respiratory failure with altered mental status, etiology to be determined, requiring inpatient monitoring and further diagnostic evaluation. Acute on chronic hypoxic respiratory failure ordered cxr fu results Admit for monitoring and supplemental oxygen titration Continue Oxymizer; wean as tolerated to baseline 3 L NC Pulse oximetry and respiratory therapy assessment ordered albuterol/atrovent atc ordered solumedrol for now Altered mental status can be from hypoxia vs uti Order CT brain to rule out acute intracranial process Monitor neuro checks ordered ua fu results Possible catheter-associated UTI UA and urine culture Continue empiric antibiotics (ceftriaxone+ vancomycin) pending cultures Monitor WBC and clinical response cont mayo acute Hyperkalemia hyperkalemia treatment provided Monitor potassium Repeat BMP after treatment and potassium-lowering measures acute on chronic michi ordered renal consult fu recs chronic problems CHF, COPD, asthma, CAD, DM2 ISS, HTN CVA (history) Recurrent UTIs FEN/PPx: Fluids: hl Electrolytes: Monitor daily BMP; replete as indicated Nutrition: Cardiac diet DVT Prophylaxis: lovenox GI Prophylaxis: Disposition: Admit to inpatient service for further workup and management of hypoxia, altered mental status, and possible catheter-associated infection. Discharge once clinically stable and infection source addressed. Plan discussed with: Patient, Other (ed records ) My Orders Orders - ELBERT GUERRA DNP Procedure Category Date Status Time *Consult CONS 04/13/[address]Mukeshchandra Pederson 14:06 *Consult CONS 04/13/25 Transmitted / 14:06 *Dr. Paco Craig CONS 04/13/25 Transmitted -[place] 14:06 Sodium Zirconium PHA 04/13/25 Logged Cyclosilicate 14:15 Admit ADMIT 04/13/25 Transmitted 14:06 Allergies TORRES 04/13/25 In Process 14:06 Code Status CODE 04/13/25 Transmitted 14:06 Oxygen Per Hour RT 04/13/25 Transmitted 14:06 Ondansetron Hcl PHA 04/13/25 Logged (Zofran) 14:15 Docusate Sodium PHA 04/13/25 Logged Capsule (Colace 14:15 Enoxaparin Sodium PHA 04/14/25 Logged (Lovenox) 10:00 Complete Blood Count LAB 04/14/25 Verified 04:00 Comprehensive LAB 04/14/25 Verified Metabolic Panel 04:00 Cardiac DIET 04/13/25 Transmitted Diet-2gna,Lofat,Lochol Dinner Condition: Stable TORRES 04/13/25 In Process 14:06 Maintain Bed Rest TORRES 04/13/25 In Process 14:06 Morphine Sulfate PHA 04/13/25 Logged Injection 14:15 Sequential TORRES 04/13/25 In Process Compression Device Nitroglycerin PHA 04/13/25 Logged Sublingual (Ntrostat 14:15 Stat Ekg For Chest TORRES 04/13/25 In Process Pain 14:06 Notify Of Changes TORRES 04/13/25 In Process From Base 14:06 Slab Conditioner Supervisor For TORRES 04/13/25 In Process 24 Hours 14:06 Emergency Dysrhythmia TORRES 04/13/25 In Process Protocol 14:06 Rhythm Strips Once TORRES 04/13/25 In Process Every Shift 14:06 Oxygen By Nasal RT 04/13/25 Transmitted Cannula 14:06 Urinalysis LAB 04/13/25 Transmitted 14:06 Chest Xray 1 View XY 04/13/25 Logged 14:06 Troponin-I Hs LAB 04/13/25 Logged 14:06 Troponin-I Hs LAB 04/13/25 Logged 15:06 Troponin-I Hs LAB 04/13/25 Transmitted 17:06 B-Type Natriuretic LAB 04/13/25 Logged Peptide 14:06 Albuterol Medneb PHA 04/13/25 Logged (Ventolin Medneb) 14:15 Ipratropium Medneb PHA 04/13/25 Logged (Atrovent Medneb) 14:15 Cont Med Neb Intial Tx RT 04/13/25 Logged 14:06 Vancomycin Per PHA 04/13/25 Logged Pharmacy 14:15 Ceftriaxone Ivpb PHA 04/13/25 Transmitted Rocephin 14:15 Ceftriaxone Ivpb PHA 04/14/25 Transmitted Rocephin 09:[address] 04/13/25 Verified 14:13 Date of Service: Apr 13, 2025 Billing Provider: ELBERT GUERRA DNP Common Visit Codes: [id number] INP/OBS CARE (HIGH) ELBERT GUERRA DNP Apr 13, 2025 14:14
[2025-04-13] MEDS ORDERED: DOCUSATE SOD 100 MG CAP PO PRN (14:15)
[2025-04-13] MEDS ORDERED: MORPHINE SULFATE INJ 2 MG/ml SYRG IV PRN (14:15)
[2025-04-13] MEDS ORDERED: NITROGLYCERIN 0.4 MG SL TAB SL PRN (14:15)
[2025-04-13] MEDS ORDERED: VANCOMYCIN PER PHARMACY 0 MG IV SCH (14:15)
[2025-04-13] MEDS ORDERED: ALBUTEROL SULF 2.5 MG/0.5ML(0.5%) NEB SOLN NEB PRN (14:15)
[2025-04-13] MEDS ORDERED: IPRATROPIUM BROM 0.5 MG/2.5ML INH SOL NEB PRN (14:15)
[2025-04-13] MEDS ORDERED: VANCOMYCIN 1GM/250ML KIT 250 ML IV ONE (15:45)
--- NOTE | 2025-04-13 15:50 | DVHINCON2 ---
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 Patient presents to the hospital because she was found to be lethargic. Upon admission patient was placed on non-rebreather was noted to saturate in the 80s on 4 L oxygen. Nephrology consulted due to elevated potassium level. Reconciliation based on medical records show patient is on oral potassium supplements as well as losartan. Allergies: Coded Allergies: Cephalexin (Unverified Allergy, Unknown, 03/24/25) Ciprofloxacin (Unverified Allergy, Unknown, 03/24/25) Fentanyl (Unverified Allergy, Unknown, 03/24/25) Morphine (Unverified Allergy, Unknown, 03/24/25) Penicillins (Verified Allergy, Unknown, 01/15/25) Home Meds Active Scripts Furosemide (Lasix) 40 Mg Tab, 40 MG PO BID for 30 Days, #60 TAB 1 Refill Prov:JEREMY JI RESIDENT 01/09/25 Apixaban Base (ELIQUIS) 5 Mg Tab, 5 MG PO BID for 30 Days, #60 TAB 2 Refills Prov:JEREMY JI RESIDENT 01/08/25 Reported Medications Empagliflozin (Jardiance) 25 Mg Tab, 1 TAB PO DAILY 03/24/25 Glipizide (Glipizide) 5 Mg Tab, 2 PO BID 03/24/25 Pregabalin (Pregabalin) 75 Mg Cap, 1 CAP PO TID 03/24/25 Fluticasone Propionate (Nasal) (Fluticasone Propionate) 50 Mcg/Act Spr, 1 SPRAY DANIELE DAILY 02/04/25 Potassium Chloride (K-Tab) 20 Meq Tab, 2 TAB PO BID 02/04/25 Trazodone Hcl (Trazodone Hcl) 100 Mg Tab, 2 TAB PO QHSP PRN for FOR INSOMNIA 02/04/25 Ondansetron HCl (Ondansetron Hydrochloride) 4 Mg Tab, 1 TAB PO Q6HPRN PRN for NAUSEA / VOMITING 02/04/25 Buspirone Hcl (Buspirone Hcl) 15 Mg Tab, TAB PO QID 02/04/25 Losartan Potassium (Losartan Potassium) 50 Mg Tab, 1 TAB PO BID 02/04/25 Simvastatin (Simvastatin) 40 Mg Tab, 1 TAB PO HS 02/04/25 Metoprolol Succinate (Metoprolol Succinate Er) 100 Mg Tab, 1 TAB PO DAILY 02/04/25 Meclizine Hcl (Meclizine Hcl) 25 Mg Tab, 25 MG PO BIDP PRN for DIZZINESS for 30 Days, MG 12/16/24 Atorvastatin Calcium (Lipitor) 40 Mg Tab, 40 MG PO, TAB 12/16/24 Alprazolam (Alprazolam) 0.5 Mg Tab, 1 TAB PO QID PRN for ANXIETY 12/15/24 Amiodarone HCl (Amiodarone HCl) 200 Mg Tab, 1 TAB PO BID 12/15/24 Aspirin (Aspirin Low Dose) 81 Mg Tab, 1 TAB PO DAILY 12/15/24 Current Medications Current Medications Medications (Trade) Dose Ordered Sig/Julito Route PRN Reason Start Time Stop Time Status Last Admin Ondansetron HCl (Zofran) 4 mg Q4HP PRN IV NAUSEA / VOMITING 04/13/25 14:15 Docusate Sodium (Colace Capsule) 100 mg BIDPRN PRN PO FOR CONSTIPATION 04/13/25 14:15 Enoxaparin Sodium (Lovenox) 40 mg DAILY SC 04/14/25 10:00 Morphine Sulfate 2 mg Q4HPRN PRN IV SEVERE PAIN (7-10 PAIN SCALE) 04/13/25 14:15 Hold Nitroglycerin (Ntrostat Sublingual) 0.4 mg Q5MINP PRN SL FOR CHEST PAIN 04/13/25 14:15 Albuterol (Ventolin Medneb) 2.5 mg Q4HPRN PRN NEB SHORTNESS OF BREATH 04/13/25 14:15 Ipratropium [place] (Atrovent Medneb) 0.5 mg Q4HPRN PRN NEB SHORTNESS OF BREATH 04/13/25 14:15 Vancomycin HCl 0 ml @ 0 mls/hr UD IV 04/13/25 14:15 UNV Ceftriaxone Sodium 50 ml @ 100 mls/hr DAILY@09 IV 04/14/25 09:00 Family History: FH: lung disease G8 MOTHER FH: skin cancer G8 MOTHER Review of Systems Weakness and lethargy H&P Exam Vital Signs/I&O Vital Sign Date Time Temp Pulse Resp B/P (MAP) Pulse Ox O2 Delivery O2 Flow Rate FiO2 04/13/25 14:58 99.1 82 20 127/42 98 8.0 64 99.1 04/13/25 12:28 Oxymizer Physical Exam Morbid obese female Speech slightly slurred but able to speak in full sentences nonacute distress Poor inspiratory effort breathing on nasal cannula dullness at bilateral bases No ankle edema Gee catheter Labs/Diagnostic Data Labs/Diagnostic Data Laboratory Tests Test 04/13/25 15:08 04/13/25 14:29 04/13/25 13:39 04/13/25 12:35 Range/Units Lactic Acid Level 1.0 0.4-2.0 mmol/L White Blood Count 7.2 4.4-10.8 10^3/uL Red Blood Count 3.56 L 4.0-5.20 10^6/uL Hemoglobin 9.4 L 12.2-16.2 g/dL Hematocrit 30.9 L 36.0-46.0 % Mean Corpuscular Volume 86.8 80.0-100.0 fL Mean Corpuscular Hemoglobin 26.3 L 28.0-32.0 pg Mean Corpuscular Hemoglobin Concent 30.3 L 32.0-36.0 g/dL Red Cell Distribution Width 16.9 H 11.8-14.3 % Platelet Count 268 140-450 10^3/uL Mean Platelet Volume 7.8 6.9-10.8 fL Neutrophils (%) (Auto) 72.7 37.0-80.0 % Lymphocytes (%) (Auto) 14.4 10.0-50.0 % Monocytes (%) (Auto) 9.6 0.0-12.0 % Eosinophils (%) (Auto) 2.8 0.0-7.0 % Basophils (%) (Auto) 0.5 0.0-2.0 % Neutrophils # (Auto) 5.2 1.6-8.6 10 ^3/uL Lymphocytes # (Auto) 1.0 0.4-5.4 10 ^3/uL Monocytes # (Auto) 0.7 0-1.3 10 ^3/uL Eosinophils # (Auto) 0.2 0-0.8 10 ^3/uL Basophils # (Auto) 0 0-0.2 10 ^3/uL Nucleated Red Blood Cells 0.1 % Sodium Level 140 136-145 mmol/L Potassium Level 5.5 H 3.5-5.1 mmol/L Chloride Level 105 98-107 mmol/L Carbon Dioxide Level 29 20-31 mmol/L Anion Gap 6 5-15 Blood Urea Nitrogen 26 H 9-23 mg/dL Creatinine 1.49 H 0.550-1.02 mg/dL Glomerular Filtration Rate Calc 40 >90 mL/min BUN/Creatinine Ratio 17.4 10.0-20.0 Serum Glucose 176 H 74-106 mg/dL Calcium Level 9.3 8.7-10.4 mg/dL Ammonia 44 H 11-32 umol/L Troponin I High Sensitivity 10 </=34 ng/L Assessment 59-year-old morbidly obese female past medical history of diastolic heart failure, and COPD presents to the hospital with lethargy likely in the setting of medications takes benzodiazepines at home. Nephrology consulted due to elevated potassium level and acute kidney injury Acute kidney injury hemodynamically mediated Chronic kidney disease stage II/3A Morbid obesity COPD Diastolic heart failure with acute decompensation Hyperkalemia likely in the setting of medications Patient currently has a Gee catheter bag is full with clear yellow urine Hold losartan, hold potassium supplements. Give Lasix today Give hyperkalemia protocol tamra Give potassium restricted diet Recommend oxygen support and nebulizer therapies. Low-salt diet Patient has reported lethargy is possibly secondary to medication effect polypharmacy from Xanax and pregabalin recommend holding sedative agents at this time care time 55mins Plan discussed with: Patient DIXIE LUNOG MD Apr 13, 2025 15:50
[2025-04-13 15:52] LABS: Urine Protein, UAD Negative (Negative)
[2025-04-13] MEDS: SODIUM CHLORIDE 0.9% 1,000 ML IV ONE ×2 (16:30→16:31)
[2025-04-13] MEDS: ONDANSETRON HCL 4 MG/2 ML VIAL IV PRN (16:33)
[2025-04-13] MEDS: SODIUM ZIRCONIUM CYCL 10 GM PAK PO ONE (16:33)
[2025-04-13] MEDS: VANCOMYCIN 1GM/200ML PM 200 ML IV ONE (16:35)
[2025-04-13] MEDS: FUROSEMIDE 40 MG/4 ML VIAL IV ONE (16:35)
[2025-04-13] MEDS: SODIUM BICARB 8.4% 50Meq/50ml SYR Vial IV ONE (16:42)
[2025-04-13] MEDS: cefTRIAXone 1GM/50ML D5W 50 ML IV ONE (16:43)
[2025-04-13] MEDS: VANCOMYCIN 1GM/250ML KIT 250 ML IV SCH (16:45)
[2025-04-13] MEDS: IPRATROPIUM BROM 0.5 MG/2.5ML INH SOL NEB SCH (18:05)
[2025-04-13] MEDS: ALBUTEROL SULF 2.5 MG/0.5ML(0.5%) NEB SOLN NEB SCH (18:05)
[2025-04-13] MEDS: HYDROmorphone HCL 2 MG/ML VL/or syr IV PRN (18:06)
[2025-04-13] MEDS: PANTOPRAZOLE 40 MG/10 ML VIAL INJ IV ONE (18:06)
[2025-04-13] MEDS: methylPREDNISolone SOD SUCC 125 MG/2 ML VL IV ONE (18:06)
[2025-04-13] MEDS: SULFAMETH-TRIMETH 80/16MG-ML 15 ML in D5W 5% 500 ML IV ONE (19:51)
--- NOTE | 2025-04-13 21:44 | DVHINCON2 ---
Date of service: Apr 13, 2025 Referring Physician Arron Reason for Consultation SOB History of Present Illness This is a 59-year-old female with a PMH of Asthma, CAD, CHF, COPD, CVA, DM, HTN, CT, UTI'S who was brought in by EMS with c/o generalized weakness, lethargic and more altered than normal. Last seen normal yesterday as per family. They noticed this morning that she has been answering questions differently. When paramedics arrived her saturation was 83% on 3 L for which they placed non-rebreather increased the saturation 100%. EKG is NSR at 85. 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 Troponin is negative. UA shows trace blood. Patient was admitted to the hospital. I am asked to consult on this patient. Family History: FH: lung disease G8 MOTHER FH: skin cancer G8 MOTHER Allergies: Coded Allergies: Cephalexin (Unverified Allergy, Unknown, 03/24/25) Ciprofloxacin (Unverified Allergy, Unknown, 03/24/25) Fentanyl (Unverified Allergy, Unknown, 03/24/25) Morphine (Unverified Allergy, Unknown, 03/24/25) Penicillins (Verified Allergy, Unknown, 01/15/25) Home Meds Active Scripts Furosemide (Lasix) 40 Mg Tab, 40 MG PO BID for 30 Days, #60 TAB 1 [facility] 01/09/25 Apixaban Base (ELIQUIS) 5 Mg Tab, 5 MG PO BID for 30 Days, #60 TAB 2 Refills Prov:[facility] RESIDENT 01/08/25 Reported Medications Empagliflozin (Jardiance) 25 Mg Tab, 1 TAB PO DAILY 03/24/25 Glipizide (Glipizide) 5 Mg Tab, 2 PO BID 03/24/25 Pregabalin (Pregabalin) 75 Mg Cap, 1 CAP PO TID 03/24/25 Fluticasone Propionate (Nasal) (Fluticasone Propionate) 50 Mcg/Act Spr, 1 SPRAY DANIELE DAILY 02/04/25 Potassium Chloride (K-Tab) 20 Meq Tab, 2 TAB PO BID 02/04/25 Trazodone Hcl (Trazodone Hcl) 100 Mg Tab, 2 TAB PO QHSP PRN for FOR INSOMNIA 02/04/25 Ondansetron HCl (Ondansetron Hydrochloride) 4 Mg Tab, 1 TAB PO Q6HPRN PRN for NAUSEA / VOMITING 02/04/25 Buspirone Hcl (Buspirone Hcl) 15 Mg Tab, TAB PO QID 02/04/25 Losartan Potassium (Losartan Potassium) 50 Mg Tab, 1 TAB PO BID 02/04/25 Simvastatin (Simvastatin) 40 Mg Tab, 1 TAB PO HS 02/04/25 Metoprolol Succinate (Metoprolol Succinate Er) 100 Mg Tab, 1 TAB PO DAILY 02/04/25 Meclizine Hcl (Meclizine Hcl) 25 Mg Tab, 25 MG PO BIDP PRN for DIZZINESS for 30 Days, MG 12/16/24 Atorvastatin Calcium (Lipitor) 40 Mg Tab, 40 MG PO, TAB 12/16/24 Alprazolam (Alprazolam) 0.5 Mg Tab, 1 TAB PO QID PRN for ANXIETY 12/15/24 Amiodarone HCl (Amiodarone HCl) 200 Mg Tab, 1 TAB PO BID 12/15/24 Aspirin (Aspirin Low Dose) 81 Mg Tab, 1 TAB PO DAILY 12/15/24 Current Medications Current Medications Medications (Trade) Dose Ordered Sig/Julito Route PRN Reason Start Time Stop Time Status Last Admin Ondansetron HCl (Zofran) 4 mg Q4HP PRN IV NAUSEA / VOMITING 04/13/25 14:15 04/13/25 16:33 Docusate Sodium (Colace Capsule) 100 mg BIDPRN PRN PO FOR CONSTIPATION 04/13/25 14:15 Enoxaparin Sodium (Lovenox) 40 mg DAILY SC 04/14/25 10:00 Morphine Sulfate 2 mg Q4HPRN PRN IV SEVERE PAIN (7-10 PAIN SCALE) 04/13/25 14:15 Hold Nitroglycerin (Ntrostat Sublingual) 0.4 mg Q5MINP PRN SL FOR CHEST PAIN 04/13/25 14:15 Albuterol (Ventolin Medneb) 2.5 mg Q4HPRN PRN NEB SHORTNESS OF BREATH 04/13/25 14:15 04/13/25 18:01 DC Ipratropium [place] (Atrovent Medneb) 0.5 mg Q4HPRN PRN NEB SHORTNESS OF BREATH 04/13/25 14:15 Vancomycin HCl 0 ml @ 0 mls/hr UD IV 04/13/25 14:15 Ceftriaxone Sodium 50 ml @ 100 mls/hr DAILY@09 IV 04/14/25 09:00 Vancomycin HCl 250 ml @ 250 mls/hr Q1H IV 04/13/25 15:45 04/13/25 17:44 DC 04/13/25 16:45 Zirconium Oxide (Lokelma) 10 gm BID PO 04/13/25 22:00 04/15/25 21:59 Vancomycin HCl 100 ml @ 100 mls/hr Q12H IV 04/14/25 06:00 Hydromorphone HCl (Dilaudid Injection) 0.5 mg Q8HP PRN IV PAIN SCALE 7 THRU 10 04/13/25 17:15 04/13/25 18:06 Albuterol (Ventolin Medneb) 2.5 mg Q4HR NEB 04/13/25 18:00 04/13/25 18:05 Ipratropium [place] (Atrovent Medneb) 0.5 mg Q4HR NEB 04/13/25 18:00 04/13/25 18:05 Methylprednisolone Sodium Succinate (Solu Medrol) 40 mg Q8HR IV 04/13/25 22:00 Pantoprazole Sodium (Protonix) 40 mg DAILY IV 04/14/25 10:00 Review of Systems Limited ROS due to mental status Constitutional: No: Fever, Chills, Sweats, Weakness, Malaise, Other Respiratory: Shortness of breath, SOB with excertion Neurological: Weakness, Confusion Vital Signs Vital Signs Date Time Temp Pulse Resp B/P (MAP) Pulse Ox O2 Delivery O2 Flow Rate FiO2 04/13/25 20:00 88 04/13/25 18:06 19 174/44 04/13/25 18:00 98 04/13/25 14:58 99.1 8.0 64 99.1 04/13/25 12:28 Oxymizer Physical Exam GENERAL: Awake, confused, morbidly obese. EYES: PERRL, EOMI. Anicteric. HENT: Moist mucous membranes. LUNGS: Clear to auscultation bilaterally. CARDIOVASCULAR: Regular rate and rhythm. ABDOMEN: Soft, non-tender and non-distended. EXTREMITIES: No edema. SKIN: Warm, dry. Labs/Diagnostic Data Labs Test 04/13/25 18:44 04/13/25 15:08 04/13/25 14:29 04/13/25 13:39 Range/Units Troponin I High Sensitivity 11 </=34 ng/L B-Type Natriuretic Peptide 280.10 0-100 pg/mL Urine Color Colorless Yellow Urine Clarity Clear Clear Urine pH 5.0 5.0-9.0 Urine Specific [place] 1.009 1.001-1.035 Urine Protein Negative Negative Urine Ketones Negative Negative Urine Blood Trace H Negative /uL Urine Nitrite Negative Negative Urine Bilirubin Negative Negative Urine Urobilinogen Normal Negative mg/dL Urine Leukocyte Esterase Negative Negative /uL Urine Glucose Normal Normal mg/dL Lactic Acid Level 1.0 0.4-2.0 mmol/L White Blood Count 7.2 4.4-10.8 10^3/uL Red Blood Count 3.56 L 4.0-5.20 10^6/uL Hemoglobin 9.4 L 12.2-16.2 g/dL Hematocrit 30.9 L 36.0-46.0 % Mean Corpuscular Volume 86.8 80.0-100.0 fL Mean Corpuscular Hemoglobin 26.3 L 28.0-32.0 pg Mean Corpuscular Hemoglobin Concent 30.3 L 32.0-36.0 g/dL Red Cell Distribution Width 16.9 H 11.8-14.3 % Platelet Count 268 140-450 10^3/uL Mean Platelet Volume 7.8 6.9-10.8 fL Neutrophils (%) (Auto) 72.7 37.0-80.0 % Lymphocytes (%) (Auto) 14.4 10.0-50.0 % Monocytes (%) (Auto) 9.6 0.0-12.0 % Eosinophils (%) (Auto) 2.8 0.0-7.0 % Basophils (%) (Auto) 0.5 0.0-2.0 % Neutrophils # (Auto) 5.2 1.6-8.6 10 ^3/uL Lymphocytes # (Auto) 1.0 0.4-5.4 10 ^3/uL Monocytes # (Auto) 0.7 0-1.3 10 ^3/uL Eosinophils # (Auto) 0.2 0-0.8 10 ^3/uL Basophils # (Auto) 0 0-0.2 10 ^3/uL Nucleated Red Blood Cells 0.1 % Test 04/13/25 12:35 Range/Units Sodium Level 140 136-145 mmol/L Potassium Level 5.5 H 3.5-5.1 mmol/L Chloride Level 105 98-107 mmol/L Carbon Dioxide Level 29 20-31 mmol/L Anion Gap 6 5-15 Blood Urea Nitrogen 26 H 9-23 mg/dL Creatinine 1.49 H 0.550-1.02 mg/dL Glomerular Filtration Rate Calc 40 >90 mL/min BUN/Creatinine Ratio 17.4 10.0-20.0 Serum Glucose 176 H 74-106 mg/dL Calcium Level 9.3 8.7-10.4 mg/dL Ammonia 44 H 11-32 umol/L Assessment Acute on chronic hypoxic respiratory failure. Altered mental status UTI Hyperkalemia Acute on chronic VIVI. CHF. COPD. Asthma. CAD. DM2. HTN. History of CVA. Recurrent UTIs. Plan/Recommendation I agree with your ongoing assessment and care of plan. Trend troponin. IV antibiotics as ordered. DVT and GI prophylactics. Dilaudid for pain. Niro SL. Additional plan as per the hospital course. A total of 45 minutes was spent reviewing the patient record, examining the patient, making a diagnostic and therapeutic plan, discussing this plan with medical personnel, following up on diagnostic studies and following the patient for clinical stability excluding any and all procedures. At least 50% of this time was spent in direct, [id number] contact. Plan discussed with: Other FRANTZ HOSKINS MD Apr 13, 2025 21:44
[2025-04-13] MEDS: methylPREDNISolone SOD SUCC 40 MG/ML VL IV SCH (22:23)
[2025-04-13] MEDS: SODIUM ZIRCONIUM CYCL 10 GM PAK PO SCH (22:25)
[2025-04-13] MEDS: HYDROcodone-ACET 7.5/325MG TAB PO ONE (22:30)
--- NOTE | 2025-04-13 23:25 | DVH ---
EXAM: XY CHEST XRAY 1 VIEW CLINICAL HISTORY: sob TECHNIQUE: Single AP view of the chest WID: COMPARISON: CT CHEST WITHOUT CONTRAST on DOS: 03/25/25, XY CHEST PORTABLE on DOS: 03/24/25 FINDINGS: Lines and tubes: None Chest: Mild cardiomegaly and pulmonary vascular congestion. Slight elevation of the right hemidiaphragm. Blunting of the bilateral costophrenic angles. No pneumo thorax. The osseous structures are grossly intact. IMPRESSION: Mild cardiomegaly and prominence of the pulmonary vasculature. Blunting of the bilateral costophrenic angles which could reflect small pleural effusions or scarring .
[2025-04-14] VITALS (18 sets, daily range): BP systolic 130–148; BP diastolic 52–71; PULSE 68–83; RESP 14–22; TEMP 98; O2SAT 94–100
[2025-04-14] MEDS: VANCOMYCIN 750MG KIT 100 ML IV SCH (05:17)
--- NOTE | 2025-04-14 08:58 | DVHPNRES ---
Progress Note Date Seen: Apr 14, 2025 Resident Creating Document: JOCELINE BARRAZA RESIDENT Medical Necessity Reason Pt with a Central, PICC or Fol: Yes The following are medically ne: Gee Catheter Subjective Review of Systems Chinedu Beckett is a 59-year-old female with past medical history of CVA, HFpEF, COPD, hypertension, diabetes, presented to the ER with chief complain of inability to move since yesterday morning, accompanied by pain in her whole body. Reportedly, she was unable to talk. She remained confused for some time and was brought to the ER. She uses 3 L home oxygen. She also complained of burning micturition, dysuria from last week. She also complains of associated chills. PMHx:CVA, HFpEF, COPD, hypertension, diabetes PSHx: section, cholecystectomy, lap band removal. Social history: Smoking, quit 20 years ago. No alcohol recreational drug use. Lives in house with family Home medication: aspirin, Levaquin, phenol Pyridium, lubiprostone, baclofen, pregabalin, [place], hydroxyzine, ertapenem, glipizide, Jardiance, metoprolol succinate, insulin, alprazolam, buspirone, trazodone, Eliquis, pantoprazole, Maxitrol ophthalmic suspension, amiodarone, metoprolol tartrate, Xarelto, fluconazole, spironolactone, furosemide, simvastatin, prednisolone, isosorbide dinitrate, Ozempic, famotidine, losartan, nitrofurantoin, albuterol, milk of magnesia, ROS Constitutional: Chills. Morbidly obese patient. Denies weight loss, fever. HEENT: Denies changes in vision and hearing. Respiratory: Denies shortness of breath and cough Cardiovascular: Denies chest discomfort or palpitations GI: Denies abdominal pain, nausea, vomiting and diarrhea. : Burning micturition, dysuria. Musculoskeletal: Reduced motor strength and sensations in upper and lower extremities on right side more than left side Skin: Denies rash and pruritus. Neurological: Denies dizziness, headache, vision or hearing problems She was examined at bedside today. Vitals show tachypnea. She is in apparent distress. She reports whole-body pain and burning micturition. Objective vital signs Vital Sign Date Time Temp Pulse Resp B/P (MAP) Pulse Ox O2 Delivery O2 Flow Rate FiO2 04/14/25 07:28 77 22 98 04/14/25 07:22 Oxymizer 4.0 04/14/25 07:22 N/A 04/14/25 04:34 98.0 147/66 (93) 98.0 Total Intake and Output 04/13/25 04/13/25 04/14/25 15:00 23:00 07:00 Intake Total 100 ml Output Total 1700 ml Balance -1700 ml 100 ml medications Current Medications Medications Dose Ordered Sig/Julito Route Start Time Stop Time Status Last Admin Dose Admin Ondansetron HCl 4 mg Q4HP PRN IV 04/13/25 14:15 04/13/25 16:33 4 MG Docusate Sodium 100 mg BIDPRN PRN PO 04/13/25 14:15 Enoxaparin Sodium 40 mg DAILY SC 04/14/25 10:00 Morphine Sulfate 2 mg Q4HPRN PRN IV 04/13/25 14:15 Hold Nitroglycerin 0.4 mg Q5MINP PRN SL 04/13/25 14:15 Ipratropium [place] 0.5 mg Q4HPRN PRN NEB 04/13/25 14:15 Vancomycin HCl 0 ml @ 0 mls/hr UD IV 04/13/25 14:15 Ceftriaxone Sodium 50 ml @ 100 mls/hr DAILY@09 IV 04/14/25 09:00 Zirconium Oxide 10 gm BID PO 04/13/25 22:00 04/15/25 21:59 04/13/25 22:25 10 GM Vancomycin HCl 100 ml @ 100 mls/hr Q12H IV 04/14/25 06:00 04/14/25 05:17 100 MLS/HR Hydromorphone HCl 0.5 mg Q8HP PRN IV 04/13/25 17:15 04/13/25 18:06 0.5 MG Albuterol 2.5 mg Q4HR NEB 04/13/25 18:00 04/14/25 07:24 2.5 MG Ipratropium [place] 0.5 mg Q4HR NEB 04/13/25 18:00 04/14/25 07:24 0.5 MG Methylprednisolone Sodium Succinate 40 mg Q8HR IV 04/13/25 22:00 04/14/25 05:16 40 MG Pantoprazole Sodium 40 mg DAILY IV 04/14/25 10:00 Examination General: Morbidly obese patient. Apparent distress due to pain. Patient alert and oriented in person, place and time. Patient following commands. HEENT: Normocephalic, atraumatic, moist mucous membranes Respiratory/pulmonary: Clear lungs bilaterally, no associated crackles or wheezes. Cardiovascular: Distant, Normal heart sounds S1 and S2 Abdomen: Generalized Abdominal tenderness. Thickened abdominal skin with striae Extremities: Right extremities: Reduced power 3/ 5 in upper extremities, 2/ 5 in lower extremities p.o. tenderness in right foot Skin: No rashes or pruritus, there is no sacral edema present at this time. Neurological: Intact cranial nerves with no focal neurologic deficits laboratory and microbiology Laboratory Tests 04/13/25 13:39 04/13/25 12:35 Test 04/13/25 12:35 Range/Units Serum Glucose 176 H 74-106 mg/dL Problem List/Assessment/Plan Problem List/Assessment/Plan Acute metabolic encephalopathy due to below Acute on chronic hypoxic respiratory failure, due to pneumonia Gram-negative Gram-positive bacteria, possible Exacerbation of COPD, possible due to above History of asthma Lactic acid WNL CXR- Mild cardiomegaly and prominence of the pulmonary vasculature. Blunting of the bilateral costophrenic angles which could reflect small pleural effusions or scarring. Pain management Continue on IV antibiotics Continue on med neb treatment Methylprednisolone 40 mg IV Complicated symptomatic UTI History of recurrent UTI with ESBL organism Started on IV vancomycin, meropenem Acute exacerbation of congestive heart failure, possible HFpEF with ejection fraction 60% History of CAD History of CVA CXR- Mild cardiomegaly and prominence of the pulmonary vasculature BNP 280 Troponin WNL EKG revealed Atrial fibrillation, Low voltage, extremity and precordial leads, Nonspecific T abnormalities, lateral leads Previous echo in 2024 revealed LVEF 65%, mild MR, right atrium enlarged Monitored on telemetry Continue IV furosemide Cardiology on board, recommended trending troponin, DVT GI prophylaxis Deep vein thrombosis, ruled out Doppler venous ultrasound revealed No right or left femoropopliteal venous thrombosis. Bilateral common femoral vein and greater saphenous veins are not visualized due to body habitus History of anxiety, depression Metabolic disorder Diabetes mellitus Essential hypertension Morbid obesity Normocytic, normochromic anemia, BIBI, possible Ferritin ordered Hyyperammonemia VIVI on CKD due to VMN, possible History of CKD stage 2 Elevated BUN, creatinine Nephrology on board, recommended holding losartan; continue Lasix Hyperkalemia, resolved Labs show potassium 5.5 Managed with Hyperkalemia protocol DIET: cardiac DVT PROPHYLAXIS: Lovenox GI PROPHYLAXIS: Protonix GI prophylaxis Colace CODE STATUS: Goals of care discussed with patient at bedside for more than 35 minutes. Full code DISPOSITION: Med/surge Patient's status and plan discussed with the patient. Case discussed with Dr. Paul. Plan discussed with: Patient Date of Service: Apr 14, 2025 Billing Provider: ELOISA PAUL MD Common Visit Codes: [id number] INP/OBS CARE(HIGH) JOCELINE BARRAZA RESIDENT Apr 14, 2025 08:57 ELOISA PAUL MD Apr 18, 2025 21:56
[2025-04-14] MEDS: cefTRIAXone 1GM/50ML D5W 50 ML IV SCH (09:00)
[2025-04-14] MEDS: SODIUM ZIRCONIUM CYCL 10 GM PAK PO ONE (09:00)
[2025-04-14] MEDS: PANTOPRAZOLE 40 MG/10 ML VIAL INJ IV SCH (09:02)
[2025-04-14] MEDS: ENOXAPARIN SOD 40 MG/0.4 ML SYRINGE SC SCH (09:05)
[2025-04-14] MEDS: DEXTROSE (50%) 50ML SYRG IV ONE (09:28)
[2025-04-14] MEDS: InsuLIN REG 1unit/0.01ml Soln (100units/ml) IV ONE (09:29)
[2025-04-14] MEDS: FUROSEMIDE 20 MG/2 ML VIAL IV ONE (09:36)
[2025-04-14] MEDS: MEROPENEM 1GM IVPB 50 ML IV SCH (10:00)
--- NOTE | 2025-04-14 11:08 | DVHINCON2 ---
Date of service: Apr 13, 2025 Referring Physician marilee david Reason for Consultation COPD and respiratory failure History of Present Illness HPI The patient is a 59-year-old lady known to our service from previous admissions. She has a history of congestive heart failure and COPD/LAZARA and is usually on home oxygen. The patient presented with generalized weakness and apparently woke up and could not move. She is usually on oxygen at home. Currently denies cough or production mucus. Chest x-ray in the ER shows signs of fluid overload. Home Meds Active Scripts Furosemide (Lasix) 40 Mg Tab, 40 MG PO BID for 30 Days, #60 TAB 1 Refill Prov:TENAURORAJEREMY RESIDENT 01/09/25 Apixaban Base (ELIQUIS) 5 Mg Tab, 5 MG PO BID for 30 Days, #60 TAB 2 Refills Prov:TENJEREMY SIMON RESIDENT 01/08/25 Reported Medications Empagliflozin (Jardiance) 25 Mg Tab, 1 TAB PO DAILY 03/24/25 Glipizide (Glipizide) 5 Mg Tab, 2 PO BID 03/24/25 Pregabalin (Pregabalin) 75 Mg Cap, 1 CAP PO TID 03/24/25 Fluticasone Propionate (Nasal) (Fluticasone Propionate) 50 Mcg/Act Spr, 1 SPRAY DANIELE DAILY 02/04/25 Potassium Chloride (K-Tab) 20 Meq Tab, 2 TAB PO BID 02/04/25 Trazodone Hcl (Trazodone Hcl) 100 Mg Tab, 2 TAB PO QHSP PRN for FOR INSOMNIA 02/04/25 Ondansetron HCl (Ondansetron Hydrochloride) 4 Mg Tab, 1 TAB PO Q6HPRN PRN for NAUSEA / VOMITING 02/04/25 Buspirone Hcl (Buspirone Hcl) 15 Mg Tab, TAB PO QID 02/04/25 Losartan Potassium (Losartan Potassium) 50 Mg Tab, 1 TAB PO BID 02/04/25 Simvastatin (Simvastatin) 40 Mg Tab, 1 TAB PO HS 02/04/25 Metoprolol Succinate (Metoprolol Succinate Er) 100 Mg Tab, 1 TAB PO DAILY 02/04/25 Meclizine Hcl (Meclizine Hcl) 25 Mg Tab, 25 MG PO BIDP PRN for DIZZINESS for 30 Days, MG 12/16/24 Atorvastatin Calcium (Lipitor) 40 Mg Tab, 40 MG PO, TAB 12/16/24 Alprazolam (Alprazolam) 0.5 Mg Tab, 1 TAB PO QID PRN for ANXIETY 12/15/24 Amiodarone HCl (Amiodarone HCl) 200 Mg Tab, 1 TAB PO BID 12/15/24 Aspirin (Aspirin Low Dose) 81 Mg Tab, 1 TAB PO DAILY 12/15/24 Past Medical History Cardiac: CAD, CHF Pulmonary: COPD Central Nervous System: No pertinent Hx GI: No pertinent Hx Hemotology/Oncology: No pertinent Hx Hepatobiliary: No pertinent Hx Psychiatric: No pertinent Hx Musculoskeletal: No pertinent Hx Rheumotologic: No pertinent Hx Infectious Disease: No peritnent Hx ENT: No pertinent Hx Renal/: No pertinent Hx Endocrine: No pertinent Hx Dermatology: No pertinent Hx Patient Family History: FH: lung disease G8 MOTHER FH: skin cancer G8 MOTHER Review of Systems Constitutional: Weakness Ears, Nose, & Throat: No symptom reported Eyes: No symptom reported Pulmonary/Respiratory: Dyspnea, Cough Cardiovascular: Palpitations, Edema Gastrointestinal: No symptom reported Genitourinary: No symptom reported Musculoskeletal: No symptom reported Skin: No symptom reported Psychiatric: No symptom reported Endocrine: No symptom reported Hemotologic/Lymphatic: No symptom reported H&P Exam Vital Signs Vital Signs Date Time Temp Pulse Resp B/P (MAP) Pulse Ox O2 Delivery O2 Flow Rate FiO2 04/14/25 10:49 83 20 98 04/14/25 10:42 Oxymizer 5 N/A 04/14/25 09:36 134/71 04/14/25 04:34 98.0 98.0 General Appeara: Well developed, Well nourished, Normal Appearance Head Exam: Normal inspection Neck Exam: Normal inspection, Non-tender Eye Exam: bilateral eye Normal inspection, bilateral eye PERRL, bilateral eye EOMI Ear Exam: bilateral ear Auricle normal, bilateral ear Canal normal Nasal Exam: Normal inspection Mouth: Normal Inspection Pulmonary/Respiratory: Respiratory distress, Decreased breath sounds Cardiovascular/Chest: Edema, Regular rate Peripheral Pulses: 4+ carotid (R), 4+ carotid (L) Abdominal Exam: Normal bowel sounds Labs/Xrays Labs Test 04/14/25 09:34 04/13/25 18:44 04/13/25 15:08 04/13/25 14:29 Range/Units POC Glucose 360 H 70-106 mg/dl Troponin I High Sensitivity 11 </=34 ng/L B-Type Natriuretic Peptide 280.10 0-100 pg/mL Urine Color Colorless Yellow Urine Clarity Clear Clear Urine pH 5.0 5.0-9.0 Urine Specific [place] 1.009 1.001-1.035 Urine Protein Negative Negative Urine Ketones Negative Negative Urine Blood Trace H Negative /uL Urine Nitrite Negative Negative Urine Bilirubin Negative Negative Urine Urobilinogen Normal Negative mg/dL Urine Leukocyte Esterase Negative Negative /uL Urine Glucose Normal Normal mg/dL Lactic Acid Level 1.0 0.4-2.0 mmol/L Test 04/13/25 13:39 04/13/25 12:35 Range/Units White Blood Count 7.2 4.4-10.8 10^3/uL Red Blood Count 3.56 L 4.0-5.20 10^6/uL Hemoglobin 9.4 L 12.2-16.2 g/dL Hematocrit 30.9 L 36.0-46.0 % Mean Corpuscular Volume 86.8 80.0-100.0 fL Mean Corpuscular Hemoglobin 26.3 L 28.0-32.0 pg Mean Corpuscular Hemoglobin Concent 30.3 L 32.0-36.0 g/dL Red Cell Distribution Width 16.9 H 11.8-14.3 % Platelet Count 268 140-450 10^3/uL Mean Platelet Volume 7.8 6.9-10.8 fL Neutrophils (%) (Auto) 72.7 37.0-80.0 % Lymphocytes (%) (Auto) 14.4 10.0-50.0 % Monocytes (%) (Auto) 9.6 0.0-12.0 % Eosinophils (%) (Auto) 2.8 0.0-7.0 % Basophils (%) (Auto) 0.5 0.0-2.0 % Neutrophils # (Auto) 5.2 1.6-8.6 10 ^3/uL Lymphocytes # (Auto) 1.0 0.4-5.4 10 ^3/uL Monocytes # (Auto) 0.7 0-1.3 10 ^3/uL Eosinophils # (Auto) 0.2 0-0.8 10 ^3/uL Basophils # (Auto) 0 0-0.2 10 ^3/uL Nucleated Red Blood Cells 0.1 % Sodium Level 140 136-145 mmol/L Potassium Level 5.5 H 3.5-5.1 mmol/L Chloride Level 105 98-107 mmol/L Carbon Dioxide Level 29 20-31 mmol/L Anion Gap 6 5-15 Blood Urea Nitrogen 26 H 9-23 mg/dL Creatinine 1.49 H 0.550-1.02 mg/dL Glomerular Filtration Rate Calc 40 >90 mL/min BUN/Creatinine Ratio 17.4 10.0-20.0 Serum Glucose 176 H 74-106 mg/dL Calcium Level 9.3 8.7-10.4 mg/dL Ammonia 44 H 11-32 umol/L Assessment/Plan Plan Acute hypoxemic respiratory failure Congestive heart failure Pulmonary edema/fluid overload Cardiomyopathy COPD Patient is seen and examined in the ER In distress Labs and imaging studies reviewed Management plan Albuterol/Atrovent bronchodilators for wheezing Diuresis Lasix monitor renal function Replace electrolytes Short course of steroids for COPD Okay to use BiPAP for increased work of breathing initial settings Supportive care/DVT prophylaxis Otherwise workup and management per primary team The patient is full code Plan discussed with: Patient IAN HASTINGS MD Apr 14, 2025 11:08
--- NOTE | 2025-04-14 12:17 | DVHPN2 ---
Progress Note - Dictate Date Seen: Apr 14, 2025 Has the PT tested + for MRSA If YES, has PT been informed?: No Medical Necessity Reason Pt with a Central, PICC or Fol: No vital signs Vital Sign Date Time Temp Pulse Resp B/P (MAP) Pulse Ox O2 Delivery O2 Flow Rate FiO2 04/14/25 10:49 83 20 98 04/14/25 10:42 Oxymizer 5 N/A 04/14/25 09:36 134/71 04/14/25 04:34 98.0 98.0 Total Intake and Output 04/13/25 04/13/25 04/14/25 15:00 23:00 07:00 Intake Total 100 ml Output Total 1700 ml Balance -1700 ml 100 ml medications Current Medications Medications Dose Ordered Sig/Julito Route Start Time Stop Time Status Last Admin Dose Admin Ondansetron HCl 4 mg Q4HP PRN IV 04/13/25 14:15 04/13/25 16:33 4 MG Docusate Sodium 100 mg BIDPRN PRN PO 04/13/25 14:15 Enoxaparin Sodium 40 mg DAILY SC 04/14/25 10:00 04/14/25 09:05 40 MG Morphine Sulfate 2 mg Q4HPRN PRN IV 04/13/25 14:15 Hold Nitroglycerin 0.4 mg Q5MINP PRN SL 04/13/25 14:15 Ipratropium [place] 0.5 mg Q4HPRN PRN NEB 04/13/25 14:15 Vancomycin HCl 0 ml @ 0 mls/hr UD IV 04/13/25 14:15 Zirconium Oxide 10 gm BID PO 04/13/25 22:00 04/15/25 21:59 04/14/25 09:03 10 GM Vancomycin HCl 100 ml @ 100 mls/hr Q12H IV 04/14/25 06:00 04/14/25 05:17 100 MLS/HR Hydromorphone HCl 0.5 mg Q8HP PRN IV 04/13/25 17:15 04/14/25 09:05 0.5 MG Albuterol 2.5 mg Q4HR NEB 04/13/25 18:00 04/14/25 10:43 2.5 MG Ipratropium [place] 0.5 mg Q4HR NEB 04/13/25 18:00 04/14/25 10:44 0.5 MG Methylprednisolone Sodium Succinate 40 mg Q8HR IV 04/13/25 22:00 04/14/25 05:16 40 MG Pantoprazole Sodium 40 mg DAILY IV 04/14/25 10:00 04/14/25 09:02 40 MG Meropenem 50 ml @ 17 mls/hr Q8H IV 04/14/25 10:00 laboratory and microbiology Laboratory Tests 04/13/25 13:39 04/13/25 12:35 Test 04/13/25 12:35 Range/Units Serum Glucose 176 H 74-106 mg/dL Assessment/Plan Acute hypoxemic respiratory failure Congestive heart failure Pulmonary edema/fluid overload Cardiomyopathy COPD Patient is seen and examined in the ER pt distressed but subjectively better Management plan continue supportive cacre Albuterol/Atrovent bronchodilators for wheezing Diuresis Lasix monitor renal function Replace electrolytes Short course of steroids for COPD Okay to use BiPAP for increased work of breathing initial settings Supportive care/DVT prophylaxis workup and management per primary team The patient is full code Plan discussed with: Patient IAN HASTINGS MD Apr 14, 2025 12:17
[2025-04-14 14:50] LABS: Iron 22.0 ug/dL (50-170)
[2025-04-14 14:51] LABS: Alanine Aminotransferase 21 U/L (7-40); Albumin 4.1 g/dL (3.2-4.8); Alkaline Phosphatase 97 U/L (46-116); Anion Gap 9 (5-15); BUN/Creatinine Ratio 30.0 (10.0-20.0); Calcium 9.1 mg/dL (8.7-10.4); Chloride 99 mmol/L (98-107); Potassium 4.1 mmol/L (3.5-5.1); Sodium 141 mmol/L (136-145); Total Protein 6.4 g/dL (5.7-8.2)
[2025-04-14 14:52] LABS: Bilirubin, Total 0.4 mg/dL (0.2-1.0); Blood Urea Nitrogen 36 mg/dL (9-23); Carbon Dioxide 33 mmol/L (20-31); Glucose 389 mg/dL (74-106); Total Iron Binding Capacity 314.0 ug/dL (250-425)
--- NOTE | 2025-04-14 15:31 | DVH ---
Bilateral lower extremity venous duplex Clinical History: leg pain and swelling r/o DVt Comparison: None Findings: Duplex Doppler evaluation of the deep venous systems of both lower extremities from the common femora l veins to the popliteal veins including color Doppler and spectral/pulsed waveform analysis was perf ormed. RIGHT SIDE: Bilateral common femoral vein and greater saphenous veins are not visualized due to body habitus The femoral vein demonstrates appropriate compressibility and waveform variability. The deep femoral vein demonstrates appropriate compressibility and waveform variability. The popliteal vein demonstrates appropriate compressibility and waveform variability. There is normal compressibility at the tibioperoneal trunk. LEFT SIDE: The femoral vein demonstrates appropriate compressibility and waveform variability. The deep femoral vein demonstrates appropriate compressibility and waveform variability. The popliteal vein demonstrates appropriate compressibility and waveform variability. There is normal compressibility at the tibioperoneal trunk. IMPRESSION: No right or left femoropopliteal venous thrombosis. Bilateral common femoral vein and greater saphenous veins are not visualized due to body habitus END IMPRESSION: If clinical concern/symptoms persist or worsen, short-interval follow-up study is suggested.
[2025-04-14] MEDS: HYDROmorphone HCL 2 MG/ML VL/or syr IV PRN (17:55)
--- NOTE | 2025-04-14 20:35 | DVHPN2 ---
Progress Note Date Seen: Apr 14, 2025 Has the PT tested + for MRSA If YES, has PT been informed?: No Medical Necessity Reason Pt with a Central, PICC or Fol: Yes The following are medically ne: Gee Catheter Subjective Patient reports: Other Review of Systems: RESPIRATORY:Abnormal (sob) Objective vital signs Vital Sign Date Time Temp Pulse Resp B/P (MAP) Pulse Ox O2 Delivery O2 Flow Rate FiO2 04/14/25 18:25 76 18 166/73 04/14/25 10:49 98 04/14/25 10:42 Oxymizer 5 N/A 04/14/25 04:34 98.0 98.0 Total Intake and Output 04/13/25 04/13/25 04/14/25 15:00 23:00 07:00 Intake Total 100 ml Output Total 1700 ml Balance -1700 ml 100 ml medications Current Medications Medications Dose Ordered Sig/Julito Route Start Time Stop Time Status Last Admin Dose Admin Ondansetron HCl 4 mg Q4HP PRN IV 04/13/25 14:15 04/14/25 18:09 4 MG Docusate Sodium 100 mg BIDPRN PRN PO 04/13/25 14:15 Enoxaparin Sodium 40 mg DAILY SC 04/14/25 10:00 04/14/25 09:05 40 MG Nitroglycerin 0.4 mg Q5MINP PRN SL 04/13/25 14:15 Ipratropium [place] 0.5 mg Q4HPRN PRN NEB 04/13/25 14:15 Vancomycin HCl 0 ml @ 0 mls/hr UD IV 04/13/25 14:15 Zirconium Oxide 10 gm BID PO 04/13/25 22:00 04/15/25 21:59 04/14/25 09:03 10 GM Vancomycin HCl 100 ml @ 100 mls/hr Q12H IV 04/14/25 06:00 04/14/25 17:49 100 MLS/HR Albuterol 2.5 mg Q4HR NEB 04/13/25 18:00 04/14/25 18:18 2.5 MG Ipratropium [place] 0.5 mg Q4HR NEB 04/13/25 18:00 04/14/25 18:18 0.5 MG Methylprednisolone Sodium Succinate 40 mg Q8HR IV 04/13/25 22:00 04/14/25 14:09 40 MG Pantoprazole Sodium 40 mg DAILY IV 04/14/25 10:00 04/14/25 09:02 40 MG Meropenem 50 ml @ 17 mls/hr Q8H IV 04/14/25 10:00 04/14/25 17:50 17 MLS/HR Hydromorphone HCl 1 mg Q8HP PRN IV 04/14/25 14:30 04/14/25 17:55 1 MG Examination: GENERAL:Abnormal, LUNGS:Abnormal, MSK:Abnormal, NEURO:Normal laboratory and microbiology Laboratory Tests 04/14/25 14:21 04/13/25 13:39 Test 04/14/25 14:21 Range/Units Serum Glucose 389 H 74-106 mg/dL Microbiology Date/Time Source Procedure Growth Status 04/13/25 17:00 Blood Blood Culture - Preliminary NO GROWTH AFTER 24 HOURS OF INCUBATION. Resulted Problem List/Assessment/Plan Problem List/Assessment/Plan Acute kidney injury hemodynamically mediated Chronic kidney disease stage II/3A Morbid obesity COPD Diastolic heart failure with acute decompensation Hyperkalemia likely in the setting of medications recs iv lasix k better renal function better Plan discussed with: Patient DORA CARDENAS MD Apr 14, 2025 20:35
[2025-04-14] MEDS: HYDROmorphone HCL 2 MG/ML VL/or syr IV ONE (22:54)
--- NOTE | 2025-04-14 23:22 | DVHPN2 ---
Progress Note - Dictate Date Seen: Apr 14, 2025 Has the PT tested + for MRSA If YES, has PT been informed?: No Medical Necessity Reason Pt with a Central, PICC or Fol: Yes The following are medically ne: Gee Catheter Subjective Patient was seen and evaluated in follow up. Patient is on 5 L pxymizer. Patient is c/o SOB. CO2 33, BUN 36, [employer] 1.20. Bilateral lower extremity venous duplex shows no right or left femoropopliteal venous thrombosis. Bilateral common femoral vein and greater saphenous veins are not visualized due to body habitus Telemetry reviewed. vital signs Vital Sign Date Time Temp Pulse Resp B/P (MAP) Pulse Ox O2 Delivery O2 Flow Rate FiO2 04/14/25 22:54 76 18 121/51 04/14/25 21:54 100 04/14/25 18:18 Oxymizer 5.0 04/14/25 18:18 46 46 04/14/25 04:34 98.0 98.0 Total Intake and Output 04/13/25 04/13/25 04/14/25 15:00 23:00 07:00 Intake Total 100 ml Output Total 1700 ml Balance -1700 ml 100 ml medications Current Medications Medications Dose Ordered Sig/Julito Route Start Time Stop Time Status Last Admin Dose Admin Ondansetron HCl 4 mg Q4HP PRN IV 04/13/25 14:15 04/14/25 18:09 4 MG Docusate Sodium 100 mg BIDPRN PRN PO 04/13/25 14:15 Enoxaparin Sodium 40 mg DAILY SC 04/14/25 10:00 04/14/25 09:05 40 MG Nitroglycerin 0.4 mg Q5MINP PRN SL 04/13/25 14:15 Ipratropium [place] 0.5 mg Q4HPRN PRN NEB 04/13/25 14:15 Vancomycin HCl 0 ml @ 0 mls/hr UD IV 04/13/25 14:15 Zirconium Oxide 10 gm BID PO 04/13/25 22:00 04/15/25 21:59 04/14/25 21:52 10 GM Vancomycin HCl 100 ml @ 100 mls/hr Q12H IV 04/14/25 06:00 04/14/25 17:49 100 MLS/HR Albuterol 2.5 mg Q4HR NEB 04/13/25 18:00 04/14/25 21:44 2.5 MG Ipratropium [place] 0.5 mg Q4HR NEB 04/13/25 18:00 04/14/25 21:44 0.5 MG Methylprednisolone Sodium Succinate 40 mg Q8HR IV 04/13/25 22:00 04/14/25 21:52 40 MG Pantoprazole Sodium 40 mg DAILY IV 04/14/25 10:00 04/14/25 09:02 40 MG Meropenem 50 ml @ 17 mls/hr Q8H IV 04/14/25 10:00 04/14/25 17:50 17 MLS/HR Hydromorphone HCl 1 mg Q8HP PRN IV 04/14/25 14:30 04/14/25 17:55 1 MG objective GENERAL: Awake, confused, morbidly obese. EYES: PERRL, EOMI. Anicteric. HENT: Moist mucous membranes. LUNGS: Clear to auscultation bilaterally. CARDIOVASCULAR: Regular rate and rhythm. ABDOMEN: Soft, non-tender and non-distended. EXTREMITIES: No edema. SKIN: Warm, dry. laboratory and microbiology Laboratory Tests 04/14/25 14:21 04/13/25 13:39 Test 04/14/25 14:21 Range/Units Serum Glucose 389 H 74-106 mg/dL Problem List Acute on chronic hypoxic respiratory failure. Altered mental status UTI Hyperkalemia Acute on chronic VIVI. CHF. COPD. Asthma. CAD. DM2. HTN. History of CVA. Recurrent UTIs. Assessment/Plan Continued all current supportive medical care. IV antibiotics as ordered. DVT and GI prophylactics. Dilaudid for pain. Hamo KRISSY. Additional plan as per the hospital course. Plan discussed with: Patient FRANTZ HOSKINS MD Apr 14, 2025 23:22
[2025-04-14] MEDS: BACLOFEN 10 MG TAB PO ONE (23:47)
[2025-04-15] VITALS (21 sets, daily range): BP systolic 127–166; BP diastolic 52–83; PULSE 69–82; RESP 16–20; TEMP 97.7–98.6; O2SAT 95–100
[2025-04-15] MEDS ORDERED: ACETAMINOPHEN 325 MG TAB PO PRN (08:15)
[2025-04-15] MEDS: LISINOPRIL 5 MG TAB PO ONE (08:57)
[2025-04-15 10:34] LABS: Hemoglobin 9.3 g/dL (12.2-16.2)
[2025-04-15 10:36] LABS: Hematocrit 29.2 % (36.0-46.0); Mean Corpuscular Hemoglobin 26.5 pg (28.0-32.0); Mean Corpuscular Volume 83.5 fL (80.0-100.0); Nucleated Red Blood Cells % 0.1 %
[2025-04-15 12:08] LABS: Alanine Aminotransferase 20 U/L (7-40); Albumin 4.1 g/dL (3.2-4.8); Alkaline Phosphatase 90 U/L (46-116); Anion Gap 8 (5-15); BUN/Creatinine Ratio 22.5 (10.0-20.0); Calcium 9.2 mg/dL (8.7-10.4); Chloride 99 mmol/L (98-107); Potassium 4.2 mmol/L (3.5-5.1); Sodium 140 mmol/L (136-145); Total Protein 6.4 g/dL (5.7-8.2)
[2025-04-15 12:14] LABS: Bilirubin, Total 0.3 mg/dL (0.2-1.0); Blood Urea Nitrogen 25 mg/dL (9-23); Carbon Dioxide 33 mmol/L (20-31)
[2025-04-15 12:15] LABS: Glucose 438 mg/dL (74-106)
[2025-04-15] MEDS: INSULIN LANTUS (GLARGINE) 1 /0.01ml (100units/ml) SC ONE (12:30)
[2025-04-15] MEDS ORDERED: DEXTROSE (50%) 50ML SYRG IV PRN (12:30)
[2025-04-15] MEDS: FUROSEMIDE 40 MG/4 ML VIAL IV ONE (13:36)
[2025-04-15] MEDS ORDERED: InsuLIN REG 1unit/0.01ml Soln (100units/ml) SC SCH (16:00)
[2025-04-15] MEDS: ACCU-CHEK COMFORT CURVE STRIP VI SCH (16:25)
[2025-04-15] MEDS: INSULIN LISPRO (HUMAN) 100 UNITS/ML ML SC SCH ×2 (17:09→17:10)
[2025-04-15] MEDS ORDERED: IRON SUCROSE COMPLEX 110 ML IV SCH (17:15)
--- NOTE | 2025-04-15 18:00 | DVHPN2 ---
Progress Note - Dictate Date Seen: Apr 15, 2025 Has the PT tested + for MRSA If YES, has PT been informed?: No Medical Necessity Reason Pt with a Central, PICC or Fol: Yes The following are medically ne: Gee Catheter vital signs Vital Sign Date Time Temp Pulse Resp B/P (MAP) Pulse Ox O2 Delivery O2 Flow Rate FiO2 04/15/25 17:24 98.6 78 17 155/77 (103) 100 98.6 04/15/25 14:14 Oxymizer 5 46 46 Total Intake and Output 04/14/25 04/14/25 04/15/25 15:00 23:00 07:00 Intake Total 50 ml 100 ml 250 ml Output Total 700 ml 800 ml Balance 50 ml -600 ml -550 ml medications Current Medications Medications Dose Ordered Sig/[place] Route Start Time Stop Time Status Last Admin Dose Admin Ondansetron HCl 4 mg Q4HP PRN IV 04/13/25 14:15 04/15/25 13:36 4 MG Docusate Sodium 100 mg BIDPRN PRN PO 04/13/25 14:15 Enoxaparin Sodium 40 mg DAILY SC 04/14/25 10:00 04/15/25 08:58 40 MG Nitroglycerin 0.4 mg Q5MINP PRN SL 04/13/25 14:15 Ipratropium [place] 0.5 mg Q4HPRN PRN NEB 04/13/25 14:15 Vancomycin HCl 0 ml @ 0 mls/hr UD IV 04/13/25 14:15 Vancomycin HCl 100 ml @ 100 mls/hr Q12H IV 04/14/25 06:00 04/15/25 17:18 100 MLS/HR Albuterol 2.5 mg Q4HR NEB 04/13/25 18:00 04/15/25 14:14 2.5 MG Ipratropium [place] 0.5 mg Q4HR NEB 04/13/25 18:00 04/15/25 14:14 0.5 MG Methylprednisolone Sodium Succinate 40 mg Q8HR IV 04/13/25 22:00 04/15/25 13:45 40 MG Pantoprazole Sodium 40 mg DAILY IV 04/14/25 10:00 04/15/25 08:55 40 MG Meropenem 50 ml @ 17 mls/hr Q8H IV 04/14/25 10:00 04/15/25 17:19 17 MLS/HR Hydromorphone HCl 1 mg Q8HP PRN IV 04/14/25 14:30 04/15/25 17:20 1 MG Lisinopril 10 mg DAILY PO 04/16/25 10:00 Acetaminophen 325 mg Q6HP PRN PO 04/15/25 08:15 Diagnostic Test (Pha) 1 strip IQ4HR 04/15/25 16:00 04/15/25 16:25 1 STRIP Dextrose 50 ml UD PRN IV 04/15/25 12:30 Insulin Glargine 15 units QAM SC 04/16/25 07:00 Insulin Human Lispro 5 units AC SC 04/15/25 17:00 04/15/25 17:09 5 UNITS Insulin Human Lispro AC SC 04/15/25 17:00 04/15/25 17:10 6 UNITS Furosemide 40 mg DAILY IV 04/16/25 10:00 Iron Sucrose 110 ml @ 110 mls/hr DAILY@1200 IV 04/15/25 17:15 04/19/25 12:59 laboratory and microbiology Laboratory Tests 04/15/25 09:34 Test 04/15/25 09:34 Range/Units Serum Glucose 438 *H 74-106 mg/dL Assessment/Plan Acute hypoxemic respiratory failure Congestive heart failure Pulmonary edema/fluid overload Cardiomyopathy COPD Patient is seen and examined in the ER pt distressed but subjectively better Management plan continue supportive cacre Albuterol/Atrovent bronchodilators for wheezing Diuresis Lasix monitor renal function Replace electrolytes steroids for COPD Okay to use BiPAP for increased work of breathing initial settings 08/10 Supportive care/DVT prophylaxis Dietary Evaluation Review Comments: 1. CCHO-60 cardiac-renal spcific diet 60g protein restriction 2. Ron BID for wound healing Expected Outcomes/Goals: controlled DM, delayed uremic syndrome, Promote healing with Ron, gradual wt loss. Plan discussed with: Patient IAN HASTINGS MD Apr 15, 2025 18:00
--- NOTE | 2025-04-15 18:28 | DVHPNRES ---
Progress Note Date Seen: Apr 15, 2025 Resident Creating Document: JOCELINE BARRAZA RESIDENT Has the PT tested + for MRSA If YES, has PT been informed?: No Medical Necessity Reason Pt with a Central, PICC or Fol: Yes The following are medically ne: Gee Catheter Subjective Review of Systems Chinedu Beckett is a 59-year-old female with past medical history of CVA, HFpEF, COPD, hypertension, diabetes, presented to the ER with chief complain of inability to move since yesterday morning, accompanied by pain in her whole body. Reportedly, she was unable to talk. She remained confused for some time and was brought to the ER. She uses 3 L home oxygen. She also complained of burning micturition, dysuria from last week. She also complains of associated chills. PMHx:CVA, HFpEF, COPD, hypertension, diabetes PSHx: section, cholecystectomy, lap band removal. Social history: Smoking, quit 20 years ago. No alcohol recreational drug use. Lives in house with family Home medication: aspirin, Levaquin, phenol Pyridium, lubiprostone, baclofen, pregabalin, [place], hydroxyzine, ertapenem, glipizide, Jardiance, metoprolol succinate, insulin, alprazolam, buspirone, trazodone, Eliquis, pantoprazole, Maxitrol ophthalmic suspension, amiodarone, metoprolol tartrate, Xarelto, fluconazole, spironolactone, furosemide, simvastatin, prednisolone, isosorbide dinitrate, Ozempic, famotidine, losartan, nitrofurantoin, albuterol, milk of magnesia, ROS Constitutional: Chills. Morbidly obese patient. Denies weight loss, fever. HEENT: Denies changes in vision and hearing. Respiratory: Denies shortness of breath and cough Cardiovascular: Denies chest discomfort or palpitations GI: Denies abdominal pain, nausea, vomiting and diarrhea. : Burning micturition, dysuria. Musculoskeletal: Reduced motor strength and sensations in upper and lower extremities on right side more than left side Skin: Denies rash and pruritus. Neurological: Denies dizziness, headache, vision or hearing problems She was examined at bedside today. Vitals show tachypnea. She is in apparent distress. She reports whole-body pain and burning micturition. Her blood glucose is high. We will continue monitoring and managing. Objective vital signs Vital Sign Date Time Temp Pulse Resp B/P (MAP) Pulse Ox O2 Delivery O2 Flow Rate FiO2 04/15/25 17:24 98.6 78 17 155/77 (103) 100 98.6 04/15/25 14:14 Oxymizer 5 46 46 Total Intake and Output 04/14/25 04/14/25 04/15/25 15:00 23:00 07:00 Intake Total 50 ml 100 ml 250 ml Output Total 700 ml 800 ml Balance 50 ml -600 ml -550 ml medications Current Medications Medications Dose Ordered Sig/Julito Route Start Time Stop Time Status Last Admin Dose Admin Ondansetron HCl 4 mg Q4HP PRN IV 04/13/25 14:15 04/15/25 13:36 4 MG Docusate Sodium 100 mg BIDPRN PRN PO 04/13/25 14:15 Enoxaparin Sodium 40 mg DAILY SC 04/14/25 10:00 04/15/25 08:58 40 MG Nitroglycerin 0.4 mg Q5MINP PRN SL 04/13/25 14:15 Ipratropium [place] 0.5 mg Q4HPRN PRN NEB 04/13/25 14:15 Vancomycin HCl 0 ml @ 0 mls/hr UD IV 04/13/25 14:15 Vancomycin HCl 100 ml @ 100 mls/hr Q12H IV 04/14/25 06:00 04/15/25 17:18 100 MLS/HR Albuterol 2.5 mg Q4HR NEB 04/13/25 18:00 04/15/25 14:14 2.5 MG Ipratropium [place] 0.5 mg Q4HR NEB 04/13/25 18:00 04/15/25 14:14 0.5 MG Methylprednisolone Sodium Succinate 40 mg Q8HR IV 04/13/25 22:00 04/15/25 13:45 40 MG Pantoprazole Sodium 40 mg DAILY IV 04/14/25 10:00 04/15/25 08:55 40 MG Meropenem 50 ml @ 17 mls/hr Q8H IV 04/14/25 10:00 04/15/25 17:19 17 MLS/HR Hydromorphone HCl 1 mg Q8HP PRN IV 04/14/25 14:30 04/15/25 17:20 1 MG Lisinopril 10 mg DAILY PO 04/16/25 10:00 Acetaminophen 325 mg Q6HP PRN PO 04/15/25 08:15 Diagnostic Test (Pha) 1 strip IQ4HR 04/15/25 16:00 04/15/25 16:25 1 STRIP Dextrose 50 ml UD PRN IV 04/15/25 12:30 Insulin Glargine 15 units QAM SC 04/16/25 07:00 Insulin Human Lispro 5 units AC SC 04/15/25 17:00 04/15/25 17:09 5 UNITS Insulin Human Lispro AC SC 04/15/25 17:00 04/15/25 17:10 6 UNITS Furosemide 40 mg DAILY IV 04/16/25 10:00 Iron Sucrose 110 ml @ 110 mls/hr DAILY@1200 IV 04/15/25 17:15 04/19/25 12:59 Examination General: Morbidly obese patient. Apparent distress due to pain. Patient alert and oriented in person, place and time. Patient following commands. HEENT: Normocephalic, atraumatic, moist mucous membranes Respiratory/pulmonary: Clear lungs bilaterally, no associated crackles or wheezes. Cardiovascular: Distant, Normal heart sounds S1 and S2 Abdomen: Generalized Abdominal tenderness. Thickened abdominal skin with striae Extremities: Right extremities: Reduced power 3/ 5 in upper extremities, 2/ 5 in lower extremities p.o. tenderness in right foot Skin: No rashes or pruritus, there is no sacral edema present at this time. Neurological: Intact cranial nerves with no focal neurologic deficits laboratory and microbiology Laboratory Tests 04/15/25 09:34 Test 04/15/25 09:34 Range/Units Serum Glucose 438 *H 74-106 mg/dL Microbiology Date/Time Source Procedure Growth Status 04/15/25 06:10 Nose MRSA Screen - Final Complete 04/14/25 11:15 Voided Urine Urine Culture - Preliminary Resulted 04/13/25 17:00 Blood Blood Culture - Preliminary NO GROWTH AFTER 48 HOURS OF INCUBATION. Resulted Problem List/Assessment/Plan Problem List/Assessment/Plan Acute metabolic encephalopathy due to below Acute on chronic hypoxic respiratory failure, due to pneumonia Gram-negative Gram-positive bacteria, possible Exacerbation of COPD, possible due to above History of asthma Lactic acid WNL CXR- Mild cardiomegaly and prominence of the pulmonary vasculature. Blunting of the bilateral costophrenic angles which could reflect small pleural effusions or scarring. Pain management Continue on IV antibiotics Continue on med neb treatment Methylprednisolone 40 mg IV Complicated symptomatic UTI History of recurrent UTI with ESBL organism Started on IV vancomycin, meropenem Acute exacerbation of congestive heart failure, possible HFpEF with ejection fraction 60% History of CAD History of CVA CXR- Mild cardiomegaly and prominence of the pulmonary vasculature BNP 280 Troponin WNL EKG revealed Atrial fibrillation, Low voltage, extremity and precordial leads, Nonspecific T abnormalities, lateral leads Previous echo in 2024 revealed LVEF 65%, mild MR, right atrium enlarged Monitored on telemetry Continue IV furosemide Cardiology on board, recommended trending troponin, DVT GI prophylaxis Deep vein thrombosis, ruled out Doppler venous ultrasound revealed No right or left femoropopliteal venous thrombosis. Bilateral common femoral vein and greater saphenous veins are not visualized due to body habitus History of anxiety, depression Metabolic disorder Essential hypertension Morbid obesity Uncontrolled Diabetes mellitus Continue basal bolus, sliding scale insulin Normocytic, normochromic anemia, BIBI, possible Labs positive for BIBI Started supplementation Hyyperammonemia VIVI on CKD due to VMN, possible History of CKD stage 2 Elevated BUN, creatinine Nephrology on board, recommended holding losartan; continue Lasix Hyperkalemia, resolved Labs showed potassium 5.5 Managed with Hyperkalemia protocol DIET: cardiac DVT PROPHYLAXIS: Lovenox GI PROPHYLAXIS: Protonix GI prophylaxis Colace CODE STATUS: Goals of care discussed with patient at bedside for more than 25 minutes. Full code DISPOSITION: Med/surge Patient's status and plan discussed with the patient. Case discussed with Dr. Paul. Plan discussed with: Patient My Orders My Orders Orders - JOCELINE BARRAZA RESIDENT Procedure Category Date Status Time Lisinopril Tablet PHA 04/16/25 In Process (Zestril Tablet) 10:00 Acetaminophen Tablet PHA 04/15/25 In Process (Tylenol Tablet) 08:15 Glucose Blood PHA 04/15/25 In Process (Accu-Chek Comfort 16:00 Dextrose 50% Syringe PHA 04/15/25 In Process 12:30 Insulin Lantus PHA 04/16/25 In Process (Glargine) (Lantus) 07:00 Dietary Evaluation Review Comments: 1. CCHO-60 cardiac-renal spcific diet 60g protein restriction 2. Ron BID for wound healing Expected Outcomes/Goals: controlled DM, delayed uremic syndrome, Promote healing with Ron, gradual wt loss. Date of Service: Apr 15, 2025 Billing Provider: ELOISA PAUL MD Common Visit Codes: [id number] INP/OBS CARE(HIGH) JOCELINE BARRAZA RESIDENT Apr 15, 2025 18:28 ELOISA PAUL MD Apr 18, 2025 22:24
[2025-04-15] MEDS: ACCU-CHEK COMFORT CURVE STRIP VI ONE (18:30)
[2025-04-15] MEDS: DEXTROSE (50%) 50ML SYRG IV ONE (18:30)
[2025-04-15] MEDS ORDERED: InsuLIN REG 1unit/0.01ml Soln (100units/ml) SC ONE (18:30)
--- NOTE | 2025-04-15 18:56 | DVHPN2 ---
Progress Note Date Seen: Apr 15, 2025 Has the PT tested + for MRSA If YES, has PT been informed?: No Medical Necessity Reason Pt with a Central, PICC or Fol: Yes The following are medically ne: Gee Catheter Subjective Patient reports: No new complaints Review of Systems: Deferred Objective vital signs Vital Sign Date Time Temp Pulse Resp B/P (MAP) Pulse Ox O2 Delivery O2 Flow Rate FiO2 04/15/25 17:50 77 17 146/82 04/15/25 17:24 98.6 100 98.6 04/15/25 14:14 Oxymizer 5 46 46 Total Intake and Output 04/14/25 04/14/25 04/15/25 14:59 22:59 06:59 Intake Total 50 ml 100 ml 250 ml Output Total 700 ml 800 ml Balance 50 ml -600 ml -550 ml medications Current Medications Medications Dose Ordered Sig/Julito Route Start Time Stop Time Status Last Admin Dose Admin Ondansetron HCl 4 mg Q4HP PRN IV 04/13/25 14:15 04/15/25 13:36 4 MG Docusate Sodium 100 mg BIDPRN PRN PO 04/13/25 14:15 Enoxaparin Sodium 40 mg DAILY SC 04/14/25 10:00 04/15/25 08:58 40 MG Nitroglycerin 0.4 mg Q5MINP PRN SL 04/13/25 14:15 Ipratropium [place] 0.5 mg Q4HPRN PRN NEB 04/13/25 14:15 Vancomycin HCl 0 ml @ 0 mls/hr UD IV 04/13/25 14:15 Vancomycin HCl 100 ml @ 100 mls/hr Q12H IV 04/14/25 06:00 04/15/25 18:00 100 MLS/HR Albuterol 2.5 mg Q4HR NEB 04/13/25 18:00 04/15/25 14:14 2.5 MG Ipratropium [place] 0.5 mg Q4HR NEB 04/13/25 18:00 04/15/25 14:14 0.5 MG Methylprednisolone Sodium Succinate 40 mg Q8HR IV 04/13/25 22:00 04/15/25 13:45 40 MG Pantoprazole Sodium 40 mg DAILY IV 04/14/25 10:00 04/15/25 08:55 40 MG Meropenem 50 ml @ 17 mls/hr Q8H IV 04/14/25 10:00 04/15/25 17:19 17 MLS/HR Hydromorphone HCl 1 mg Q8HP PRN IV 04/14/25 14:30 04/15/25 17:20 1 MG Lisinopril 10 mg DAILY PO 04/16/25 10:00 Acetaminophen 325 mg Q6HP PRN PO 04/15/25 08:15 Diagnostic Test (Pha) 1 strip IQ4HR 04/15/25 16:00 04/15/25 16:25 1 STRIP Dextrose 50 ml UD PRN IV 04/15/25 12:30 Insulin Human Lispro 5 units AC SC 04/15/25 17:00 04/15/25 17:09 5 UNITS Insulin Human Lispro AC SC 04/15/25 17:00 04/15/25 17:10 6 UNITS Furosemide 40 mg DAILY IV 04/16/25 10:00 Iron Sucrose 110 ml @ 110 mls/hr DAILY@1200 IV 04/15/25 17:15 04/19/25 12:59 Insulin Glargine 30 units QAM [place] 04/15/25 20:00 Examination: GENERAL:Abnormal, LUNGS:Abnormal, MSK:Abnormal, SKIN:Abnormal, NEURO:Normal laboratory and microbiology Laboratory Tests 04/15/25 09:34 Test 04/15/25 09:34 Range/Units Serum Glucose 438 *H 74-106 mg/dL Microbiology Date/Time Source Procedure Growth Status 04/15/25 06:10 Nose MRSA Screen - Final Complete 04/14/25 11:15 Voided Urine Urine Culture - Preliminary Resulted 04/13/25 17:00 Blood Blood Culture - Preliminary NO GROWTH AFTER 48 HOURS OF INCUBATION. Resulted Problem List/Assessment/Plan Problem List/Assessment/Plan Acute kidney injury hemodynamically mediated Chronic kidney disease stage II/3A Morbid obesity COPD Diastolic heart failure with acute decompensation Hyperkalemia likely in the setting of medications recs iv lasix k better renal function better Plan discussed with: Patient My Orders My Orders Orders - DORA CARDENAS MD Procedure Category Date Status Time Furosemide Injection PHA 04/16/25 In Process (Lasix Injection) 10:00 Dietary Evaluation Review Comments: 1. CCHO-60 cardiac-renal spcific diet 60g protein restriction 2. Ron BID for wound healing Expected Outcomes/Goals: controlled DM, delayed uremic syndrome, Promote healing with Ron, gradual wt loss. DORA CARDENAS MD Apr 15, 2025 18:56
[2025-04-15] MEDS: INSULIN LANTUS (GLARGINE) 1 /0.01ml (100units/ml) SC SCH (20:59)
[2025-04-15] MEDS: IRON SUCROSE COMPLEX 110 ML IV SCH (21:27)
--- NOTE | 2025-04-15 23:09 | DVHPN2 ---
Progress Note - Dictate Date Seen: Apr 15, 2025 Has the PT tested + for MRSA If YES, has PT been informed?: No Medical Necessity Reason Pt with a Central, PICC or Fol: Yes The following are medically ne: Gee Catheter Subjective Patient was seen and evaluated in follow up. Patient is complaining of SOB. She is on 6 L Oxymizer. She reports whole-body pain and burning micturition. HGB 9.3, HCT 29, BUN 25, MUSEUM GUIDE 1.11, GLUC 436. Telemetry reviewed. vital signs Vital Sign Date Time Temp Pulse Resp B/P (MAP) Pulse Ox O2 Delivery O2 Flow Rate FiO2 04/15/25 21:52 74 18 98 04/15/25 21:44 Oxymizer 6.0 04/15/25 21:44 N/A 04/15/25 21:00 97.8 142/73 (96) 97.8 Total Intake and Output 04/14/25 04/14/25 04/15/25 15:00 23:00 07:00 Intake Total 50 ml 100 ml 250 ml Output Total 700 ml 800 ml Balance 50 ml -600 ml -550 ml medications Current Medications Medications Dose Ordered Sig/Julito Route Start Time Stop Time Status Last Admin Dose Admin Ondansetron HCl 4 mg Q4HP PRN IV 04/13/25 14:15 04/15/25 13:36 4 MG Docusate Sodium 100 mg BIDPRN PRN PO 04/13/25 14:15 Enoxaparin Sodium 40 mg DAILY SC 04/14/25 10:00 04/15/25 08:58 40 MG Nitroglycerin 0.4 mg Q5MINP PRN SL 04/13/25 14:15 Ipratropium [place] 0.5 mg Q4HPRN PRN NEB 04/13/25 14:15 Vancomycin HCl 0 ml @ 0 mls/hr UD IV 04/13/25 14:15 Vancomycin HCl 100 ml @ 100 mls/hr Q12H IV 04/14/25 06:00 04/15/25 18:00 100 MLS/HR Albuterol 2.5 mg Q4HR NEB 04/13/25 18:00 04/15/25 21:44 2.5 MG Ipratropium [place] 0.5 mg Q4HR NEB 04/13/25 18:00 04/15/25 21:44 0.5 MG Methylprednisolone Sodium Succinate 40 mg Q8HR IV 04/13/25 22:00 04/15/25 21:27 40 MG Pantoprazole Sodium 40 mg DAILY IV 04/14/25 10:00 04/15/25 08:55 40 MG Meropenem 50 ml @ 17 mls/hr Q8H IV 04/14/25 10:00 04/15/25 17:19 17 MLS/HR Hydromorphone HCl 1 mg Q8HP PRN IV 04/14/25 14:30 04/15/25 17:20 1 MG Lisinopril 10 mg DAILY PO 04/16/25 10:00 Acetaminophen 325 mg Q6HP PRN PO 04/15/25 08:15 Diagnostic Test (Pha) 1 strip IQ4HR 04/15/25 16:00 04/15/25 20:24 1 STRIP Dextrose 50 ml UD PRN IV 04/15/25 12:30 Insulin Human Lispro 5 units AC SC 04/15/25 17:00 04/15/25 17:09 5 UNITS Insulin Human Lispro AC SC 04/15/25 17:00 04/15/25 17:10 6 UNITS Furosemide 40 mg DAILY IV 04/16/25 10:00 Insulin Glargine 30 units QAM SC 04/15/25 20:00 04/15/25 20:59 30 UNITS Iron Sucrose 110 ml @ 110 mls/hr DAILY@2030 IV 04/15/25 20:30 04/19/25 21:29 04/15/25 21:27 110 MLS/HR objective GENERAL: Awake, confused, morbidly obese. EYES: PERRL, EOMI. Anicteric. HENT: Moist mucous membranes. LUNGS: Clear to auscultation bilaterally. CARDIOVASCULAR: Regular rate and rhythm. ABDOMEN: Soft, non-tender and non-distended. EXTREMITIES: No edema. SKIN: Warm, dry. laboratory and microbiology Laboratory Tests 04/15/25 09:34 Test 04/15/25 09:34 Range/Units Serum Glucose 438 *H 74-106 mg/dL Problem List Acute on chronic hypoxic respiratory failure. Altered mental status UTI Hyperkalemia Acute on chronic VIVI. CHF. COPD. Asthma. CAD. DM2. HTN. History of CVA. Recurrent UTIs. Assessment/Plan Continued all current supportive medical care. IV antibiotics as ordered. DVT and GI prophylactics. Diuretics with Lasix. Dilaudid for pain management. Niro SL. Lisinopril. Additional plan as per the hospital course. Dietary Evaluation Review Comments: 1. CCHO-60 cardiac-renal spcific diet 60g protein restriction 2. Ron BID for wound healing Expected Outcomes/Goals: controlled DM, delayed uremic syndrome, Promote healing with Ron, gradual wt loss. Plan discussed with: Patient FRANTZ HOSKINS MD Apr 15, 2025 23:09
[2025-04-16] VITALS (19 sets, daily range): BP systolic 141–165; BP diastolic 59–96; PULSE 69–82; RESP 14–22; TEMP 96.9–99.4; O2SAT 92–100
[2025-04-16] MEDS ORDERED: DEXTROSE (50%) 50ML SYRG IV PRN ×2 (00:30→17:15)
[2025-04-16] MEDS: INSULIN LANTUS (GLARGINE) 1 /0.01ml (100units/ml) SC SCH ×2 (01:25→06:50)
[2025-04-16] MEDS: InsuLIN REG 1unit/0.01ml Soln (100units/ml) SC SCH ×2 (05:04→21:48)
[2025-04-16] MEDS: hydrALAZINE HCL 20 MG/ML VL IV ONE (05:59)
[2025-04-16] MEDS: INSULIN LISPRO (HUMAN) 100 UNITS/ML ML SC SCH (06:30)
[2025-04-16] MEDS: ACCU-CHEK COMFORT CURVE STRIP VI SCH ×2 (06:31→21:28)
[2025-04-16] MEDS ORDERED: INSULIN LANTUS (GLARGINE) 1 /0.01ml (100units/ml) SC SCH (07:00)
[2025-04-16 07:27] LABS: Potassium 4.0 mmol/L (3.5-5.1); Sodium 139 mmol/L (136-145)
[2025-04-16 07:28] LABS: Anion Gap 9 (5-15); Calcium 9.4 mg/dL (8.7-10.4); Nucleated Red Blood Cells % 0.3 %
[2025-04-16 07:30] LABS: Carbon Dioxide 33 mmol/L (20-31); Chloride 97 mmol/L (98-107)
[2025-04-16 07:33] LABS: BUN/Creatinine Ratio 22.6 (10.0-20.0); Hematocrit 31.0 % (36.0-46.0); Hemoglobin 10.0 g/dL (12.2-16.2); Mean Corpuscular Hemoglobin 26.8 pg (28.0-32.0); Mean Corpuscular Volume 83.3 fL (80.0-100.0)
[2025-04-16 07:34] LABS: Blood Urea Nitrogen 26 mg/dL (9-23); Glucose 396 mg/dL (74-106)
[2025-04-16] MEDS ORDERED: METOPROLOL TARTRATE 50 MG TAB PO SCH (08:30)
[2025-04-16] MEDS: FUROSEMIDE 40 MG/4 ML VIAL IV SCH (09:29)
[2025-04-16] MEDS: HYDROcodone-ACET 10/325MG TAB PO PRN (09:30)
[2025-04-16] MEDS: METOPROLOL TARTRATE 50 MG TAB PO SCH (09:30)
[2025-04-16] MEDS: LISINOPRIL 5 MG TAB PO SCH (09:31)
--- NOTE | 2025-04-16 16:34 | DVHPNRES ---
Progress Note Date Seen: Apr 16, 2025 Resident Creating Document: JOCELINE BARRAZA RESIDENT Has the PT tested + for MRSA If YES, has PT been informed?: No Medical Necessity Reason Pt with a Central, PICC or Fol: Yes The following are medically ne: Gee Catheter Subjective Review of Systems Chinedu Beckett is a 59-year-old female with past medical history of CVA, HFpEF, COPD, hypertension, diabetes, presented to the ER with chief complain of inability to move since yesterday morning, accompanied by pain in her whole body. Reportedly, she was unable to talk. She remained confused for some time and was brought to the ER. She uses 3 L home oxygen. She also complained of burning micturition, dysuria from last week. She also complains of associated chills. PMHx:CVA, HFpEF, COPD, hypertension, diabetes PSHx: section, cholecystectomy, lap band removal. Social history: Smoking, quit 20 years ago. No alcohol recreational drug use. Lives in house with family Home medication: aspirin, Levaquin, phenol Pyridium, lubiprostone, baclofen, pregabalin, [place], hydroxyzine, ertapenem, glipizide, Jardiance, metoprolol succinate, insulin, alprazolam, buspirone, trazodone, Eliquis, pantoprazole, Maxitrol ophthalmic suspension, amiodarone, metoprolol tartrate, Xarelto, fluconazole, spironolactone, furosemide, simvastatin, prednisolone, isosorbide dinitrate, Ozempic, famotidine, losartan, nitrofurantoin, albuterol, milk of magnesia, ROS Constitutional: Chills. Morbidly obese patient. Denies weight loss, fever. HEENT: Denies changes in vision and hearing. Respiratory: Denies shortness of breath and cough Cardiovascular: Denies chest discomfort or palpitations GI: Denies abdominal pain, nausea, vomiting and diarrhea. : Burning micturition, dysuria. Musculoskeletal: Reduced motor strength and sensations in upper and lower extremities on right side more than left side Skin: Denies rash and pruritus. Neurological: Denies dizziness, headache, vision or hearing problems She was examined at bedside today. Vitals show tachypnea. She is in apparent distress. She reports whole-body pain and burning micturition. Her blood glucose remains high. We will continue close monitoring and managing. Objective vital signs Vital Sign Date Time Temp Pulse Resp B/P (MAP) Pulse Ox O2 Delivery O2 Flow Rate FiO2 04/16/25 10:35 64 141/67 04/16/25 09:55 20 100 04/16/25 09:38 Oxymizer 5.0 04/16/25 09:38 N/A 04/16/25 08:30 98.0 98.0 Total Intake and Output 04/15/25 04/15/25 04/16/25 14:59 22:59 06:59 Intake Total 2250 ml 600 ml Output Total 1500 ml 2425 ml Balance 750 ml -1825 ml medications Current Medications Medications Dose Ordered Sig/Julito Route Start Time Stop Time Status Last Admin Dose Admin Ondansetron HCl 4 mg Q4HP PRN IV 04/13/25 14:15 04/15/25 13:36 4 MG Docusate Sodium 100 mg BIDPRN PRN PO 04/13/25 14:15 Enoxaparin Sodium 40 mg DAILY SC 04/14/25 10:00 04/16/25 09:30 40 MG Nitroglycerin 0.4 mg Q5MINP PRN SL 04/13/25 14:15 Ipratropium [place] 0.5 mg Q4HPRN PRN NEB 04/13/25 14:15 Vancomycin HCl 0 ml @ 0 mls/hr UD IV 04/13/25 14:15 Albuterol 2.5 mg Q4HR NEB 04/13/25 18:00 04/16/25 09:45 2.5 MG Ipratropium [place] 0.5 mg Q4HR NEB 04/13/25 18:00 04/16/25 09:45 0.5 MG Methylprednisolone Sodium Succinate 40 mg Q8HR IV 04/13/25 22:00 04/16/25 15:32 40 MG Pantoprazole Sodium 40 mg DAILY IV 04/14/25 10:00 04/16/25 09:29 40 MG Meropenem 50 ml @ 17 mls/hr Q8H IV 04/14/25 10:00 04/16/25 09:29 17 MLS/HR Lisinopril 10 mg DAILY PO 04/16/25 10:00 04/16/25 09:31 10 MG Acetaminophen 325 mg Q6HP PRN PO 04/15/25 08:15 Insulin Human Lispro AC SC 04/15/25 17:00 04/16/25 11:34 4 UNITS Furosemide 40 mg DAILY IV 04/16/25 10:00 04/16/25 09:29 40 MG Iron Sucrose 110 ml @ 110 mls/hr DAILY@2030 IV 04/15/25 20:30 04/19/25 21:29 04/15/25 21:27 110 MLS/HR Diagnostic Test (Pha) 1 strip Q6HR 04/16/25 06:00 04/16/25 11:22 1 STRIP Dextrose 50 ml UD PRN IV 04/16/25 00:30 Insulin Glargine 35 units QAM SC 04/16/25 06:30 04/16/25 06:50 35 UNITS Insulin Human Lispro 8 units AC SC 04/16/25 06:30 04/16/25 11:34 8 UNITS Acetaminophen/ Hydrocodone Bitart 1 tab Q6HP PRN PO 04/16/25 08:30 04/16/25 15:31 1 TAB Metoprolol Tartrate 50 mg Q12H PO 04/16/25 09:15 04/16/25 09:30 50 MG Vancomycin HCl 250 ml @ 250 mls/hr Q12H IV 04/16/25 18:00 Examination General: Morbidly obese patient. Apparent distress due to pain. Patient alert and oriented in person, place and time. Patient following commands. HEENT: Normocephalic, atraumatic, moist mucous membranes Respiratory/pulmonary: Clear lungs bilaterally, no associated crackles or wheezes. Cardiovascular: Distant, Normal heart sounds S1 and S2 Abdomen: Generalized Abdominal tenderness. Thickened abdominal skin with striae Extremities: Right extremities: Reduced power 3/ 5 in upper extremities, 2/ 5 in lower extremities p.o. tenderness in right foot Skin: No rashes or pruritus, there is no sacral edema present at this time. Neurological: Intact cranial nerves with no focal neurologic deficits laboratory and microbiology Laboratory Tests 04/16/25 06:55 Test 04/16/25 06:55 Range/Units Serum Glucose 396 H 74-106 mg/dL Microbiology Date/Time Source Procedure Growth Status 04/15/25 06:10 Nose MRSA Screen - Final Complete 04/14/25 11:15 Voided Urine Urine Culture - Preliminary Resulted 04/13/25 17:00 Blood Blood Culture - Preliminary NO GROWTH AFTER 48 HOURS OF INCUBATION. Resulted Problem List/Assessment/Plan Problem List/Assessment/Plan Acute metabolic encephalopathy due to below Acute on chronic hypoxic respiratory failure, due to pneumonia Gram-negative Gram-positive bacteria, possible Exacerbation of COPD, possible due to above History of asthma Vitals show tachypnea Lactic acid WNL CXR- Mild cardiomegaly and prominence of the pulmonary vasculature. Blunting of the bilateral costophrenic angles which could reflect small pleural effusions or scarring. Blood culture negative Pain management Continue on IV antibiotics Continue on med neb treatment Methylprednisolone 40 mg IV Complicated symptomatic UTI History of recurrent UTI with ESBL organism Started on IV vancomycin, meropenem Urine culture pending Acute exacerbation of congestive heart failure, possible HFpEF with ejection fraction 60% History of CAD History of CVA CXR- Mild cardiomegaly and prominence of the pulmonary vasculature BNP 280 Troponin WNL EKG revealed Atrial fibrillation, Low voltage, extremity and precordial leads, Nonspecific T abnormalities, lateral leads Previous echo in 2024 revealed LVEF 65%, mild MR, right atrium enlarged Monitored on telemetry Continue IV furosemide Cardiology on board, recommended trending troponin, DVT GI prophylaxis Deep vein thrombosis, ruled out Doppler venous ultrasound revealed No right or left femoropopliteal venous thrombosis. Bilateral common femoral vein and greater saphenous veins are not visualized due to body habitus History of anxiety, depression Metabolic disorder Essential hypertension Morbid obesity Uncontrolled Diabetes mellitus Continue basal bolus, sliding scale insulin Continue monitoring and managing Normocytic, normochromic anemia, BIBI, possible Labs positive for BIBI Started supplementation Hyyperammonemia VIVI on CKD due to VMN, possible History of CKD stage 2 Elevated BUN, creatinine Nephrology on board, recommended holding losartan; continue Lasix Hyperkalemia, resolved Labs showed potassium 5.5 Managed with Hyperkalemia protocol DIET: cardiac DVT PROPHYLAXIS: Lovenox GI PROPHYLAXIS: Protonix GI prophylaxis Colace CODE STATUS: Goals of care discussed with patient at bedside for more than 25 minutes. Full code DISPOSITION: Med/surge Patient's status and plan discussed with the patient. Case discussed with Dr. Paul. Plan discussed with: Patient My Orders My Orders Orders - JOCELINE BARRAZA RESIDENT Procedure Category Date Status Time Cardiac DIET 04/15/25 Transmitted Diet-2gna,Lofat,Lochol Dinner Insulin Lantus PHA 04/16/25 In Process (Glargine) (Lantus) 06:30 Insulin Lispro PHA 04/16/25 In Process (Human) (Humalog) 06:30 Discontinue Tele TORRES 04/16/25 In Process 06:31 Communication Order ORDERS 04/16/25 Transmitted 06:31 Transfer Orders XFER 04/16/25 Transmitted 06:31 Hydrocodone-Acet PHA 04/16/25 In Process 10/325mg Tab ([place] 08:30 Metoprolol Tartrate PHA 04/16/25 In Process Tablet (Lopressor Ta 09:15 Dietary Evaluation Review Comments: 1. CCHO-60 cardiac-renal spcific diet 60g protein restriction 2. Ron BID for wound healing Expected Outcomes/Goals: controlled DM, delayed uremic syndrome, Promote healing with Ron, gradual wt loss. Date of Service: Apr 16, 2025 Billing Provider: ELOISA PAUL MD Common Visit Codes: [id number] INP/OBS CARE(HIGH) JOCELINE BARRAZA RESIDENT Apr 16, 2025 16:34 ELOISA PAUL MD Apr 18, 2025 22:46
--- NOTE | 2025-04-16 16:43 | DVHPN2 ---
Progress Note - Dictate Date Seen: Apr 16, 2025 Has the PT tested + for MRSA If YES, has PT been informed?: No Medical Necessity Reason Pt with a Central, PICC or Fol: Yes The following are medically ne: Gee Catheter vital signs Vital Sign Date Time Temp Pulse Resp B/P (MAP) Pulse Ox O2 Delivery O2 Flow Rate FiO2 04/16/25 10:35 64 141/67 04/16/25 09:55 20 100 04/16/25 09:38 Oxymizer 5.0 04/16/25 09:38 N/A 04/16/25 08:30 98.0 98.0 Total Intake and Output 04/15/25 04/15/25 04/16/25 15:00 23:00 07:00 Intake Total 2250 ml 600 ml Output Total 1500 ml 2425 ml Balance 750 ml -1825 ml medications Current Medications Medications Dose Ordered Sig/Julito Route Start Time Stop Time Status Last Admin Dose Admin Ondansetron HCl 4 mg Q4HP PRN IV 04/13/25 14:15 04/15/25 13:36 4 MG Docusate Sodium 100 mg BIDPRN PRN PO 04/13/25 14:15 Enoxaparin Sodium 40 mg DAILY SC 04/14/25 10:00 04/16/25 09:30 40 MG Nitroglycerin 0.4 mg Q5MINP PRN SL 04/13/25 14:15 Ipratropium [place] 0.5 mg Q4HPRN PRN NEB 04/13/25 14:15 Vancomycin HCl 0 ml @ 0 mls/hr UD IV 04/13/25 14:15 Albuterol 2.5 mg Q4HR NEB 04/13/25 18:00 04/16/25 09:45 2.5 MG Ipratropium [place] 0.5 mg Q4HR NEB 04/13/25 18:00 04/16/25 09:45 0.5 MG Methylprednisolone Sodium Succinate 40 mg Q8HR IV 04/13/25 22:00 04/16/25 15:32 40 MG Pantoprazole Sodium 40 mg DAILY IV 04/14/25 10:00 04/16/25 09:29 40 MG Meropenem 50 ml @ 17 mls/hr Q8H IV 04/14/25 10:00 04/16/25 09:29 17 MLS/HR Lisinopril 10 mg DAILY PO 04/16/25 10:00 04/16/25 09:31 10 MG Acetaminophen 325 mg Q6HP PRN PO 04/15/25 08:15 Insulin Human Lispro AC SC 04/15/25 17:00 04/16/25 11:34 4 UNITS Furosemide 40 mg DAILY IV 04/16/25 10:00 04/16/25 09:29 40 MG Iron Sucrose 110 ml @ 110 mls/hr DAILY@2030 IV 04/15/25 20:30 04/19/25 21:29 04/15/25 21:27 110 MLS/HR Diagnostic Test (Pha) 1 strip Q6HR 04/16/25 06:00 04/16/25 11:22 1 STRIP Dextrose 50 ml UD PRN IV 04/16/25 00:30 Insulin Glargine 35 units QAM SC 04/16/25 06:30 04/16/25 06:50 35 UNITS Insulin Human Lispro 8 units AC SC 04/16/25 06:30 04/16/25 11:34 8 UNITS Acetaminophen/ Hydrocodone Bitart 1 tab Q6HP PRN PO 04/16/25 08:30 04/16/25 15:31 1 TAB Metoprolol Tartrate 50 mg Q12H PO 04/16/25 09:15 04/16/25 09:30 50 MG Vancomycin HCl 250 ml @ 250 mls/hr Q12H IV 04/16/25 18:00 laboratory and microbiology Laboratory Tests 04/16/25 06:55 Test 04/16/25 06:55 Range/Units Serum Glucose 396 H 74-106 mg/dL Assessment/Plan Acute hypoxemic respiratory failure Congestive heart failure Pulmonary edema/fluid overload Cardiomyopathy COPD Patient is seen and examined events low oxygen requirements on 5 liters facemask no distress Management plan continue supportive cacre Albuterol/Atrovent bronchodilators for wheezing Diuresis Lasix monitor renal function Replace electrolytes steroids for COPD Okay to use BiPAP for increased work of breathing initial settings 08/10 Supportive care/DVT prophylaxis Dietary Evaluation Review Comments: 1. CCHO-60 cardiac-renal spcific diet 60g protein restriction 2. Ron BID for wound healing Expected Outcomes/Goals: controlled DM, delayed uremic syndrome, Promote healing with Ron, gradual wt loss. Plan discussed with: Patient IAN HASTINGS MD Apr 16, 2025 16:43
[2025-04-16] MEDS: VANCOMYCIN 1GM/250ML KIT 250 ML IV SCH (18:23)
--- NOTE | 2025-04-16 18:28 | DVHPN2 ---
Progress Note Date Seen: Apr 16, 2025 Has the PT tested + for MRSA If YES, has PT been informed?: No Medical Necessity Reason Pt with a Central, PICC or Fol: Yes The following are medically ne: Gee Catheter Subjective Patient reports: No new complaints Objective vital signs Vital Sign Date Time Temp Pulse Resp B/P (MAP) Pulse Ox O2 Delivery O2 Flow Rate FiO2 04/16/25 16:30 99.1 73 14 157/82 (107) 95 99.1 04/16/25 09:38 Oxymizer 5.0 04/16/25 09:38 N/A Total Intake and Output 04/15/25 04/15/25 04/16/25 15:00 23:00 07:00 Intake Total 2250 ml 600 ml Output Total 1500 ml 2425 ml Balance 750 ml -1825 ml medications Current Medications Medications Dose Ordered Sig/Julito Route Start Time Stop Time Status Last Admin Dose Admin Ondansetron HCl 4 mg Q4HP PRN IV 04/13/25 14:15 04/15/25 13:36 4 MG Docusate Sodium 100 mg BIDPRN PRN PO 04/13/25 14:15 Enoxaparin Sodium 40 mg DAILY SC 04/14/25 10:00 04/16/25 09:30 40 MG Nitroglycerin 0.4 mg Q5MINP PRN SL 04/13/25 14:15 Ipratropium [place] 0.5 mg Q4HPRN PRN NEB 04/13/25 14:15 Vancomycin HCl 0 ml @ 0 mls/hr UD IV 04/13/25 14:15 Albuterol 2.5 mg Q4HR NEB 04/13/25 18:00 04/16/25 09:45 2.5 MG Ipratropium [place] 0.5 mg Q4HR NEB 04/13/25 18:00 04/16/25 09:45 0.5 MG Methylprednisolone Sodium Succinate 40 mg Q8HR IV 04/13/25 22:00 04/16/25 15:32 40 MG Pantoprazole Sodium 40 mg DAILY IV 04/14/25 10:00 04/16/25 09:29 40 MG Lisinopril 10 mg DAILY PO 04/16/25 10:00 04/16/25 09:31 10 MG Acetaminophen 325 mg Q6HP PRN PO 04/15/25 08:15 Insulin Human Lispro AC SC 04/15/25 17:00 04/16/25 18:24 2 UNITS Furosemide 40 mg DAILY IV 04/16/25 10:00 04/16/25 09:29 40 MG Iron Sucrose 110 ml @ 110 mls/hr DAILY@2030 IV 04/15/25 20:30 04/19/25 21:29 04/15/25 21:27 110 MLS/HR Dextrose 50 ml UD PRN IV 04/16/25 00:30 Insulin Glargine 35 units QAM SC 04/16/25 06:30 04/16/25 06:50 35 UNITS Insulin Human Lispro 8 units AC SC 04/16/25 06:30 04/16/25 18:24 8 UNITS Acetaminophen/ Hydrocodone Bitart 1 tab Q6HP PRN PO 04/16/25 08:30 04/16/25 15:31 1 TAB Metoprolol Tartrate 50 mg Q12H PO 04/16/25 09:15 04/16/25 09:30 50 MG Vancomycin HCl 250 ml @ 250 mls/hr Q12H IV 04/16/25 18:00 04/16/25 18:23 250 MLS/HR Diagnostic Test (Pha) 1 strip ACHS 04/16/25 22:00 UNV Diagnostic Test (Pha) 1 strip ACHS 04/16/25 22:00 UNV Insulin Human Regular HS [place] 04/16/25 22:00 UNV Insulin Human Regular AC SC 04/17/25 07:00 UNV Dextrose 50 ml UD PRN IV 04/16/25 17:15 UNV Meropenem 50 ml @ 17 mls/hr Q8H IV 04/16/25 20:00 laboratory and microbiology Laboratory Tests 04/16/25 06:55 Test 04/16/25 06:55 Range/Units Serum Glucose 396 H 74-106 mg/dL Microbiology Date/Time Source Procedure Growth Status 04/15/25 06:10 Nose MRSA Screen - Final Complete 04/14/25 11:15 Voided Urine Urine Culture - Preliminary Resulted 04/13/25 17:00 Blood Blood Culture - Preliminary NO GROWTH AFTER 72 HOURS OF INCUBATION. Resulted Problem List/Assessment/Plan Problem List/Assessment/Plan Acute kidney injury hemodynamically mediated Chronic kidney disease stage II/3A Morbid obesity COPD Diastolic heart failure with acute decompensation Hyperkalemia likely in the setting of medications recs Outpatient Acute kidney injury follow-up renal function better I will sign off this case please reconsult if needed Plan discussed with: Patient Dietary Evaluation Review Comments: 1. CCHO-60 cardiac-renal spcific diet 60g protein restriction 2. Ron BID for wound healing Expected Outcomes/Goals: controlled DM, delayed uremic syndrome, Promote healing with Ron, gradual wt loss. DORA CARDENAS MD Apr 16, 2025 18:28
[2025-04-16] MEDS ORDERED: MEROPENEM 1GM IVPB 50 ML IV SCH (20:00)
[2025-04-16] MEDS: MEROPENEM 1GM IVPB 50 ML IV SCH (21:27)
[2025-04-16] MEDS ORDERED: ACCU-CHEK COMFORT CURVE STRIP VI SCH (22:00)
--- NOTE | 2025-04-16 23:25 | DVHPN2 ---
Progress Note - Dictate Date Seen: Apr 16, 2025 Has the PT tested + for MRSA If YES, has PT been informed?: No Medical Necessity Reason Pt with a Central, PICC or Fol: Yes The following are medically ne: Gee Catheter Subjective Patient was seen and evaluated in follow up. Patient was downgraded to med/surg. Patient remains short of breath, patient on Oxymizer at 5 L. 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 BS are in the 340's. vital signs Vital Sign Date Time Temp Pulse Resp B/P (MAP) Pulse Ox O2 Delivery O2 Flow Rate FiO2 04/16/25 10:35 64 141/67 04/16/25 09:55 20 100 04/16/25 09:38 Oxymizer 5.0 04/16/25 09:38 N/A 04/16/25 08:30 98.0 98.0 Total Intake and Output 04/15/25 04/15/25 04/16/25 15:00 23:00 07:00 Intake Total 2250 ml 600 ml Output Total 1500 ml 2425 ml Balance 750 ml -1825 ml medications Current Medications Medications Dose Ordered Sig/Julito Route Start Time Stop Time Status Last Admin Dose Admin Ondansetron HCl 4 mg Q4HP PRN IV 04/13/25 14:15 04/15/25 13:36 4 MG Docusate Sodium 100 mg BIDPRN PRN PO 04/13/25 14:15 Enoxaparin Sodium 40 mg DAILY SC 04/14/25 10:00 04/16/25 09:30 40 MG Nitroglycerin 0.4 mg Q5MINP PRN SL 04/13/25 14:15 Ipratropium [place] 0.5 mg Q4HPRN PRN NEB 04/13/25 14:15 Vancomycin HCl 0 ml @ 0 mls/hr UD IV 04/13/25 14:15 Albuterol 2.5 mg Q4HR NEB 04/13/25 18:00 04/16/25 09:45 2.5 MG Ipratropium [place] 0.5 mg Q4HR NEB 04/13/25 18:00 04/16/25 09:45 0.5 MG Methylprednisolone Sodium Succinate 40 mg Q8HR IV 04/13/25 22:00 04/16/25 05:54 40 MG Pantoprazole Sodium 40 mg DAILY IV 04/14/25 10:00 04/16/25 09:29 40 MG Meropenem 50 ml @ 17 mls/hr Q8H IV 04/14/25 10:00 04/16/25 09:29 17 MLS/HR Lisinopril 10 mg DAILY PO 04/16/25 10:00 04/16/25 09:31 10 MG Acetaminophen 325 mg Q6HP PRN PO 04/15/25 08:15 Insulin Human Lispro AC SC 04/15/25 17:00 04/16/25 11:34 4 UNITS Furosemide 40 mg DAILY IV 04/16/25 10:00 04/16/25 09:29 40 MG Iron Sucrose 110 ml @ 110 mls/hr DAILY@2030 IV 04/15/25 20:30 04/19/25 21:29 04/15/25 21:27 110 MLS/HR Diagnostic Test (Pha) 1 strip Q6HR 04/16/25 06:00 04/16/25 11:22 1 STRIP Dextrose 50 ml UD PRN IV 04/16/25 00:30 Insulin Glargine 35 units QAM [place] 04/16/25 06:30 04/16/25 06:50 35 UNITS Insulin Human Lispro 8 units AC [place] 04/16/25 06:30 04/16/25 11:34 8 UNITS Acetaminophen/ Hydrocodone Bitart 1 tab Q6HP PRN PO 04/16/25 08:30 04/16/25 09:30 1 TAB Metoprolol Tartrate 50 mg Q12H PO 04/16/25 09:15 04/16/25 09:30 50 MG Vancomycin HCl 250 ml @ 250 mls/hr Q12H IV 04/16/25 18:00 objective GENERAL: Awake, confused, morbidly obese. EYES: PERRL, EOMI. Anicteric. HENT: Moist mucous membranes. LUNGS: Clear to auscultation bilaterally. CARDIOVASCULAR: Regular rate and rhythm. ABDOMEN: Soft, non-tender and non-distended. EXTREMITIES: No edema. SKIN: Warm, dry. laboratory and microbiology Laboratory Tests 04/16/25 06:55 Test 04/16/25 06:55 Range/Units Serum Glucose 396 H 74-106 mg/dL Problem List Acute on chronic hypoxic respiratory failure. Altered mental status UTI Hyperkalemia Acute on chronic VIVI. CHF. COPD. Asthma. CAD. DM2. HTN. History of CVA. Recurrent UTIs. Assessment/Plan Continued all current supportive medical care. IV antibiotics as ordered. DVT and GI prophylactics. Diuretics with Lasix. [place] for pain management. Lisinopril. Nebulized breathing treatments. Additional plan as per the hospital course. Dietary Evaluation Review Comments: 1. CCHO-60 cardiac-renal spcific diet 60g protein restriction 2. Ron BID for wound healing Expected Outcomes/Goals: controlled DM, delayed uremic syndrome, Promote healing with Ron, gradual wt loss. Plan discussed with: Patient FRANTZ HOSKINS MD Apr 16, 2025 14:01
[2025-04-17] VITALS (18 sets, daily range): BP systolic 140–174; BP diastolic 71–90; PULSE 60–78; RESP 17–20; TEMP 97.5–99.5; O2SAT 95–100
[2025-04-17] MEDS: hydrALAZINE HCL 20 MG/ML VL IV ONE (02:55)
[2025-04-17] MEDS: InsuLIN REG 1unit/0.01ml Soln (100units/ml) SC SCH (06:44)
[2025-04-17 06:53] LABS: Anion Gap 6 (5-15); Chloride 98 mmol/L (98-107); Potassium 4.0 mmol/L (3.5-5.1); Sodium 142 mmol/L (136-145)
[2025-04-17 06:54] LABS: Calcium 9.2 mg/dL (8.7-10.4)
[2025-04-17 06:56] LABS: Carbon Dioxide 38 mmol/L (20-31)
[2025-04-17 06:59] LABS: BUN/Creatinine Ratio 24.7 (10.0-20.0); Blood Urea Nitrogen 20 mg/dL (9-23)
[2025-04-17 07:00] LABS: Glucose 173 mg/dL (74-106)
[2025-04-17] MEDS ORDERED: BACLOFEN 10 MG TAB PO PRN (09:30)
[2025-04-17] MEDS: FLUCONAZOLE 100 MG TAB PO SCH (09:44)
[2025-04-17] MEDS: AZITHROMYCIN 250 MG TAB PO SCH (09:44)
[2025-04-17] MEDS: BACLOFEN 10 MG TAB PO ONE (12:21)
--- NOTE | 2025-04-17 14:18 | DVHPNRES ---
Progress Note Date Seen: Apr 17, 2025 Resident Creating Document: JOCELINE BARRAZA RESIDENT Has the PT tested + for MRSA If YES, has PT been informed?: No Medical Necessity Reason Pt with a Central, PICC or Fol: Yes The following are medically ne: Gee Catheter Subjective Review of Systems Chinedu Beckett is a 59-year-old female with past medical history of CVA, HFpEF, COPD, hypertension, diabetes, presented to the ER with chief complain of inability to move since yesterday morning, accompanied by pain in her whole body. Reportedly, she was unable to talk. She remained confused for some time and was brought to the ER. She uses 3 L home oxygen. She also complained of burning micturition, dysuria from last week. She also complains of associated chills. PMHx:CVA, HFpEF, COPD, hypertension, diabetes PSHx: section, cholecystectomy, lap band removal. Social history: Smoking, quit 20 years ago. No alcohol recreational drug use. Lives in house with family Home medication: aspirin, Levaquin, phenol Pyridium, lubiprostone, baclofen, pregabalin, Caroleen, hydroxyzine, ertapenem, glipizide, Jardiance, metoprolol succinate, insulin, alprazolam, buspirone, trazodone, Eliquis, pantoprazole, Maxitrol ophthalmic suspension, amiodarone, metoprolol tartrate, Xarelto, fluconazole, spironolactone, furosemide, simvastatin, prednisolone, isosorbide dinitrate, Ozempic, famotidine, losartan, nitrofurantoin, albuterol, milk of magnesia, ROS Constitutional: Chills. Morbidly obese patient. Denies weight loss, fever. HEENT: Denies changes in vision and hearing. Respiratory: Denies shortness of breath and cough Cardiovascular: Denies chest discomfort or palpitations GI: Denies abdominal pain, nausea, vomiting and diarrhea. : Burning micturition, dysuria. Musculoskeletal: Reduced motor strength and sensations in upper and lower extremities on right side more than left side Skin: Denies rash and pruritus. Neurological: Denies dizziness, headache, vision or hearing problems She was examined at bedside today, complains of increasing cough and sputum production. Ordered influenza, COVID. Continue monitoring & managing Objective vital signs Vital Sign Date Time Temp Pulse Resp B/P (MAP) Pulse Ox O2 Delivery O2 Flow Rate FiO2 04/17/25 13:00 98.9 68 17 171/86 (114) 98 98.9 04/17/25 09:55 Nasal Cannula* 3 32 Total Intake and Output 04/16/25 04/16/25 04/17/25 15:00 23:00 07:00 Intake Total 150 ml 250 ml 650 ml Output Total 2025 ml 1250 ml Balance 150 ml -1775 ml -600 ml medications Current Medications Medications Dose Ordered Sig/Julito Route Start Time Stop Time Status Last Admin Dose Admin Ondansetron HCl 4 mg Q4HP PRN IV 04/13/25 14:15 04/17/25 12:21 4 MG Enoxaparin Sodium 40 mg DAILY SC 04/14/25 10:00 04/17/25 09:43 40 MG Ipratropium [place] 0.5 mg Q4HPRN PRN NEB 04/13/25 14:15 Albuterol 2.5 mg Q4HR NEB 04/13/25 18:00 04/17/25 09:55 2.5 MG Ipratropium [place] 0.5 mg Q4HR NEB 04/13/25 18:00 04/17/25 09:55 0.5 MG Methylprednisolone Sodium Succinate 40 mg Q8HR IV 04/13/25 22:00 04/17/25 05:24 40 MG Pantoprazole Sodium 40 mg DAILY IV 04/14/25 10:00 04/17/25 09:43 40 MG Lisinopril 10 mg DAILY PO 04/16/25 10:00 04/17/25 09:44 10 MG Acetaminophen 325 mg Q6HP PRN PO 04/15/25 08:15 Insulin Human Lispro AC SC 04/15/25 17:00 04/17/25 12:23 2 UNITS Furosemide 40 mg DAILY IV 04/16/25 10:00 04/17/25 09:45 40 MG Insulin Glargine 35 units QAM SC 04/16/25 06:30 04/17/25 06:43 35 UNITS Insulin Human Lispro 8 units AC SC 04/16/25 06:30 04/17/25 12:23 8 UNITS Acetaminophen/ Hydrocodone Bitart 1 tab Q6HP PRN PO 04/16/25 08:30 04/17/25 12:22 1 TAB Metoprolol Tartrate 50 mg Q12H PO 04/16/25 09:15 04/17/25 09:44 50 MG Diagnostic Test (Pha) 1 strip ACHS 04/16/25 22:00 UNV Diagnostic Test (Pha) 1 strip ACHS 04/16/25 22:00 04/17/25 11:57 1 STRIP Insulin Human Regular HS SC 04/16/25 22:00 04/16/25 21:48 4 UNITS Insulin Human Regular AC SC 04/17/25 07:00 04/17/25 06:44 3 UNITS Dextrose 50 ml UD PRN IV 04/16/25 17:15 Meropenem 50 ml @ 17 mls/hr Q8H IV 04/16/25 22:00 04/17/25 05:24 17 MLS/HR Azithromycin 500 mg DAILY PO 04/17/25 10:00 04/17/25 09:44 500 MG Fluconazole 200 mg DAILY PO 04/17/25 10:00 04/17/25 09:44 200 MG Amlodipine Besylate 10 mg DAILY PO 04/17/25 00:45 04/17/25 01:00 10 MG Baclofen 5 mg Q8HP PRN PO 04/17/25 09:30 Examination General: Morbidly obese patient. Apparent distress due to pain. Patient alert and oriented in person, place and time. Patient following commands. HEENT: Normocephalic, atraumatic, moist mucous membranes Respiratory/pulmonary: Clear lungs bilaterally, reduced breath sounds, no associated crackles or wheezes. Cardiovascular: Distant, Normal heart sounds S1 and S2 Abdomen: Generalized Abdominal tenderness. Thickened abdominal skin with striae Extremities: Right extremities: Reduced power 3/ 5 in upper extremities, 2/ 5 in lower extremities p.o. tenderness in right foot Skin: No rashes or pruritus, there is no sacral edema present at this time. Neurological: Intact cranial nerves with no focal neurologic deficits laboratory and microbiology Laboratory Tests 04/17/25 05:49 04/16/25 06:55 Test 04/17/25 05:49 Range/Units Serum Glucose 173 H 74-106 mg/dL Microbiology Date/Time Source Procedure Growth Status 04/15/25 06:10 Nose MRSA Screen - Final Complete 04/14/25 11:15 Voided Urine Urine Culture - Preliminary Resulted 04/13/25 17:00 Blood Blood Culture - Preliminary NO GROWTH AFTER 72 HOURS OF INCUBATION. Resulted Problem List/Assessment/Plan Problem List/Assessment/Plan Acute metabolic encephalopathy due to below Acute on chronic hypoxic respiratory failure, due to pneumonia Gram-negative Gram-positive bacteria, possible Exacerbation of COPD, possible due to above Pulmonary edema/fluid overload History of asthma Vitals show tachypnea Lactic acid WNL CXR- Mild cardiomegaly and prominence of the pulmonary vasculature. Blunting of the bilateral costophrenic angles which could reflect small pleural effusions or scarring. Blood culture negative Influenza, covid ordered Pain management Continue on IV azithromycin, meropenem Continue on med neb treatment Methylprednisolone 40 mg IV Started on IV fluconazole Complicated symptomatic UTI History of recurrent UTI with ESBL organism Continue on IV vancomycin, meropenem Urine culture pending Acute exacerbation of congestive heart failure, possible HFpEF with ejection fraction 60%, Cardiomyopathy History of CAD History of CVA CXR- Mild cardiomegaly and prominence of the pulmonary vasculature BNP 280 Troponin WNL EKG revealed Atrial fibrillation, Low voltage, extremity and precordial leads, Nonspecific T abnormalities, lateral leads Previous echo in 2024 revealed LVEF 65%, mild MR, right atrium enlarged Monitored on telemetry Continue IV furosemide, lisinopril, metoprolol Cardiology on board, recommended trending troponin, DVT GI prophylaxis Deep vein thrombosis, ruled out Doppler venous ultrasound revealed No right or left femoropopliteal venous thrombosis. Bilateral common femoral vein and greater saphenous veins are not visualized due to body habitus History of anxiety, depression Metabolic disorder Essential hypertension Morbid obesity Uncontrolled Diabetes mellitus Continue basal bolus, sliding scale insulin Continue monitoring and managing Normocytic, normochromic anemia, BIBI, possible Labs positive for BIBI Started supplementation Hyyperammonemia VIVI on CKD due to VMN, possible History of CKD stage 2 Elevated BUN, creatinine Nephrology on board, recommended holding losartan; continue Lasix Hyperkalemia, resolved Labs showed potassium 5.5 Managed with Hyperkalemia protocol DIET: cardiac DVT PROPHYLAXIS: Lovenox GI PROPHYLAXIS: Protonix GI prophylaxis Colace CODE STATUS: Goals of care discussed with patient at bedside for more than 25 minutes. Full code DISPOSITION: Med/surge Patient's status and plan discussed with the patient. Case discussed with Dr. Paul. Plan discussed with: Patient Dietary Evaluation Review Comments: 1. CCHO-60 cardiac-renal spcific diet 60g protein restriction 2. Ron BID for wound healing Expected Outcomes/Goals: controlled DM, delayed uremic syndrome, Promote healing with Ron, gradual wt loss. Date of Service: Apr 17, 2025 Billing Provider: ELOISA PAUL MD Common Visit Codes: [id number] INP/OBS CARE(HIGH) JOCELINE BARRAZA RESIDENT Apr 17, 2025 14:18 ELOISA PAUL MD Apr 18, 2025 23:07
--- NOTE | 2025-04-17 15:08 | DVHPN2 ---
Progress Note - Dictate Date Seen: Apr 17, 2025 Has the PT tested + for MRSA If YES, has PT been informed?: No Medical Necessity Reason Pt with a Central, PICC or Fol: Yes The following are medically ne: Gee Catheter vital signs Vital Sign Date Time Temp Pulse Resp B/P (MAP) Pulse Ox O2 Delivery O2 Flow Rate FiO2 04/17/25 14:13 65 18 99 04/17/25 14:13 Nasal Cannula* 3 32 04/17/25 13:00 98.9 171/86 (114) 98.9 Total Intake and Output 04/16/25 04/16/25 04/17/25 15:00 23:00 07:00 Intake Total 150 ml 250 ml 650 ml Output Total 2025 ml 1250 ml Balance 150 ml -1775 ml -600 ml medications Current Medications Medications Dose Ordered Sig/Julito Route Start Time Stop Time Status Last Admin Dose Admin Ondansetron HCl 4 mg Q4HP PRN IV 04/13/25 14:15 04/17/25 12:21 4 MG Enoxaparin Sodium 40 mg DAILY SC 04/14/25 10:00 04/17/25 09:43 40 MG Ipratropium [place] 0.5 mg Q4HPRN PRN NEB 04/13/25 14:15 Albuterol 2.5 mg Q4HR NEB 04/13/25 18:00 04/17/25 14:13 2.5 MG Ipratropium [place] 0.5 mg Q4HR NEB 04/13/25 18:00 04/17/25 14:13 0.5 MG Methylprednisolone Sodium Succinate 40 mg Q8HR IV 04/13/25 22:00 04/17/25 14:07 40 MG Pantoprazole Sodium 40 mg DAILY IV 04/14/25 10:00 04/17/25 09:43 40 MG Lisinopril 10 mg DAILY PO 04/16/25 10:00 04/17/25 09:44 10 MG Acetaminophen 325 mg Q6HP PRN PO 04/15/25 08:15 Insulin Human Lispro AC SC 04/15/25 17:00 04/17/25 12:23 2 UNITS Furosemide 40 mg DAILY IV 04/16/25 10:00 04/17/25 09:45 40 MG Insulin Glargine 35 units QAM SC 04/16/25 06:30 04/17/25 06:43 35 UNITS Insulin Human Lispro 8 units AC SC 04/16/25 06:30 04/17/25 12:23 8 UNITS Acetaminophen/ Hydrocodone Bitart 1 tab Q6HP PRN PO 04/16/25 08:30 04/17/25 12:22 1 TAB Metoprolol Tartrate 50 mg Q12H PO 04/16/25 09:15 04/17/25 09:44 50 MG Diagnostic Test (Pha) 1 strip ACHS 04/16/25 22:00 UNV Diagnostic Test (Pha) 1 strip ACHS 04/16/25 22:00 04/17/25 11:57 1 STRIP Insulin Human Regular HS SC 04/16/25 22:00 04/16/25 21:48 4 UNITS Insulin Human Regular AC SC 04/17/25 07:00 04/17/25 06:44 3 UNITS Dextrose 50 ml UD PRN IV 04/16/25 17:15 Meropenem 50 ml @ 17 mls/hr Q8H IV 04/16/25 22:00 04/17/25 14:07 17 MLS/HR Azithromycin 500 mg DAILY PO 04/17/25 10:00 04/17/25 09:44 500 MG Fluconazole 200 mg DAILY PO 04/17/25 10:00 04/17/25 09:44 200 MG Amlodipine Besylate 10 mg DAILY PO 04/17/25 00:45 04/17/25 01:00 10 MG Baclofen 5 mg Q8HP PRN PO 04/17/25 09:30 laboratory and microbiology Laboratory Tests 04/17/25 05:49 04/16/25 06:55 Test 04/17/25 05:49 Range/Units Serum Glucose 173 H 74-106 mg/dL Assessment/Plan Acute hypoxemic respiratory failure Congestive heart failure Pulmonary edema/fluid overload Cardiomyopathy COPD Patient is seen and examined events low oxygen requirements on 5 liters facemask no distress Management plan continue supportive cacre Albuterol/Atrovent bronchodilators for wheezing Diuresis Lasix monitor renal function Replace electrolytes steroids for COPD Okay to use BiPAP for increased work of breathing initial settings 08/10 Supportive care/DVT prophylaxis Dietary Evaluation Review Comments: 1. CCHO-60 cardiac-renal spcific diet 60g protein restriction 2. Ron BID for wound healing Expected Outcomes/Goals: controlled DM, delayed uremic syndrome, Promote healing with Ron, gradual wt loss. IAN HASTINGS MD Apr 17, 2025 15:08
--- NOTE | 2025-04-17 23:00 | DVHPN2 ---
Progress Note - Dictate Date Seen: Apr 17, 2025 Has the PT tested + for MRSA If YES, has PT been informed?: No Medical Necessity Reason Pt with a Central, PICC or Fol: Yes The following are medically ne: Gee Catheter Subjective Patient was seen and evaluated in follow up. Patient reports her shortness of breath is improving. She is now on 3 LPM NC. CO2 38, GLUC 203. vital signs Vital Sign Date Time Temp Pulse Resp B/P (MAP) Pulse Ox O2 Delivery O2 Flow Rate FiO2 04/17/25 10:01 78 18 100 04/17/25 09:55 Nasal Cannula* 3 32 04/17/25 09:45 150/71 04/17/25 09:00 98.8 98.8 Total Intake and Output 04/16/25 04/16/25 04/17/25 15:00 23:00 07:00 Intake Total 150 ml 250 ml 650 ml Output Total 2025 ml 1250 ml Balance 150 ml -1775 ml -600 ml medications Current Medications Medications Dose Ordered Sig/Julito Route Start Time Stop Time Status Last Admin Dose Admin Ondansetron HCl 4 mg Q4HP PRN IV 04/13/25 14:15 04/17/25 12:21 4 MG Enoxaparin Sodium 40 mg DAILY SC 04/14/25 10:00 04/17/25 09:43 40 MG Ipratropium [place] 0.5 mg Q4HPRN PRN NEB 04/13/25 14:15 Albuterol 2.5 mg Q4HR NEB 04/13/25 18:00 04/17/25 09:55 2.5 MG Ipratropium [place] 0.5 mg Q4HR NEB 04/13/25 18:00 04/17/25 09:55 0.5 MG Methylprednisolone Sodium Succinate 40 mg Q8HR IV 04/13/25 22:00 04/17/25 05:24 40 MG Pantoprazole Sodium 40 mg DAILY IV 04/14/25 10:00 04/17/25 09:43 40 MG Lisinopril 10 mg DAILY PO 04/16/25 10:00 04/17/25 09:44 10 MG Acetaminophen 325 mg Q6HP PRN PO 04/15/25 08:15 Insulin Human Lispro AC SC 04/15/25 17:00 04/17/25 12:23 2 UNITS Furosemide 40 mg DAILY IV 04/16/25 10:00 04/17/25 09:45 40 MG Insulin Glargine 35 units QAM SC 04/16/25 06:30 04/17/25 06:43 35 UNITS Insulin Human Lispro 8 units AC SC 04/16/25 06:30 04/17/25 12:23 8 UNITS Acetaminophen/ Hydrocodone Bitart 1 tab Q6HP PRN PO 04/16/25 08:30 04/17/25 12:22 1 TAB Metoprolol Tartrate 50 mg Q12H PO 04/16/25 09:15 04/17/25 09:44 50 MG Diagnostic Test (Pha) 1 strip ACHS 04/16/25 22:00 UNV Diagnostic Test (Pha) 1 strip ACHS 04/16/25 22:00 04/17/25 11:57 1 STRIP Insulin Human Regular HS SC 04/16/25 22:00 04/16/25 21:48 4 UNITS Insulin Human Regular AC SC 04/17/25 07:00 04/17/25 06:44 3 UNITS Dextrose 50 ml UD PRN IV 04/16/25 17:15 Meropenem 50 ml @ 17 mls/hr Q8H IV 04/16/25 22:00 04/17/25 05:24 17 MLS/HR Azithromycin 500 mg DAILY PO 04/17/25 10:00 04/17/25 09:44 500 MG Fluconazole 200 mg DAILY PO 04/17/25 10:00 04/17/25 09:44 200 MG Amlodipine Besylate 10 mg DAILY PO 04/17/25 00:45 04/17/25 01:00 10 MG Baclofen 5 mg Q8HP PRN PO 04/17/25 09:30 objective GENERAL: Awake, confused, morbidly obese. EYES: PERRL, EOMI. Anicteric. HENT: Moist mucous membranes. LUNGS: Clear to auscultation bilaterally. CARDIOVASCULAR: Regular rate and rhythm. ABDOMEN: Soft, non-tender and non-distended. EXTREMITIES: No edema. SKIN: Warm, dry. laboratory and microbiology Laboratory Tests 04/17/25 05:49 04/16/25 06:55 Test 04/17/25 05:49 Range/Units Serum Glucose 173 H 74-106 mg/dL Problem List Acute on chronic hypoxic respiratory failure. Altered mental status UTI Hyperkalemia Acute on chronic VIVI. CHF. COPD. Asthma. CAD. DM2. HTN. History of CVA. Recurrent UTIs. Assessment/Plan Continued all current supportive medical care. Amlodipine, Lisinopril. Metoprolol. Diuretics with Lasix. Antibiotics as ordered. DVT and GI prophylactics. [place] for pain management. Nebulized breathing treatments. Additional plan as per the hospital course. Dietary Evaluation Review Comments: 1. CCHO-60 cardiac-renal spcific diet 60g protein restriction 2. Ron BID for wound healing Expected Outcomes/Goals: controlled DM, delayed uremic syndrome, Promote healing with Ron, gradual wt loss. Plan discussed with: Patient FRANTZ HOSKINS MD Apr 17, 2025 12:42
[2025-04-18] VITALS (20 sets, daily range): BP systolic 135–179; BP diastolic 62–82; PULSE 60–71; RESP 16–20; TEMP 96.9–98.3; O2SAT 94–100
[2025-04-18] MEDS: CYCLOBENZAPRINE HCL 10 MG TAB PO SCH (09:55)
[2025-04-18 15:04] LABS: COVID19 ANTIGEN SOFIA FIA NEGATIVE (NEGATIVE)
--- NOTE | 2025-04-18 17:03 | DVHPNRES ---
Progress Note Date Seen: Apr 18, 2025 Resident Creating Document: JOCELINE BARRAZA RESIDENT Has the PT tested + for MRSA If YES, has PT been informed?: No Medical Necessity Reason Pt with a Central, PICC or Fol: Yes The following are medically ne: Gee Catheter Subjective Review of Systems Chinedu Beckett is a 59-year-old female with past medical history of CVA, HFpEF, COPD, hypertension, diabetes, presented to the ER with chief complain of inability to move since yesterday morning, accompanied by pain in her whole body. Reportedly, she was unable to talk. She remained confused for some time and was brought to the ER. She uses 3 L home oxygen. She also complained of burning micturition, dysuria from last week. She also complains of associated chills. PMHx:CVA, HFpEF, COPD, hypertension, diabetes PSHx: section, cholecystectomy, lap band removal. Social history: Smoking, quit 20 years ago. No alcohol recreational drug use. Lives in house with family Home medication: aspirin, Levaquin, phenol Pyridium, lubiprostone, baclofen, pregabalin, [place], hydroxyzine, ertapenem, glipizide, Jardiance, metoprolol succinate, insulin, alprazolam, buspirone, trazodone, Eliquis, pantoprazole, Maxitrol ophthalmic suspension, amiodarone, metoprolol tartrate, Xarelto, fluconazole, spironolactone, furosemide, simvastatin, prednisolone, isosorbide dinitrate, Ozempic, famotidine, losartan, nitrofurantoin, albuterol, milk of magnesia, ROS Constitutional: Chills. Morbidly obese patient. Denies weight loss, fever. HEENT: Denies changes in vision and hearing. Respiratory: Denies shortness of breath and cough Cardiovascular: Denies chest discomfort or palpitations GI: Denies abdominal pain, nausea, vomiting and diarrhea. : Burning micturition, dysuria. Musculoskeletal: Reduced motor strength and sensations in upper and lower extremities on right side more than left side Skin: Denies rash and pruritus. Neurological: Denies dizziness, headache, vision or hearing problems She was examined at bedside today, report symptom improvement. Ordered influenza. Tested negative for COVID. Continue monitoring & managing Objective vital signs Vital Sign Date Time Temp Pulse Resp B/P (MAP) Pulse Ox O2 Delivery O2 Flow Rate FiO2 04/18/25 14:15 68 17 100 04/18/25 14:09 Nasal Cannula* 3 32 04/18/25 13:00 97.3 168/75 (106) 97.3 Total Intake and Output 04/17/25 04/17/25 04/18/25 15:00 23:00 07:00 Intake Total 50 ml 1000 ml 1300 ml Output Total 2450 ml 1400 ml Balance 50 ml -1450 ml -100 ml medications Current Medications Medications Dose Ordered Sig/Julito Route Start Time Stop Time Status Last Admin Dose Admin Ondansetron HCl 4 mg Q4HP PRN IV 04/13/25 14:15 04/18/25 10:02 4 MG Enoxaparin Sodium 40 mg DAILY SC 04/14/25 10:00 04/18/25 09:55 40 MG Ipratropium [place] 0.5 mg Q4HPRN PRN NEB 04/13/25 14:15 Albuterol 2.5 mg Q4HR NEB 04/13/25 18:00 04/18/25 14:09 2.5 MG Ipratropium [place] 0.5 mg Q4HR NEB 04/13/25 18:00 04/18/25 14:09 0.5 MG Methylprednisolone Sodium Succinate 40 mg Q8HR IV 04/13/25 22:00 04/18/25 13:34 40 MG Pantoprazole Sodium 40 mg DAILY IV 04/14/25 10:00 04/18/25 09:55 40 MG Lisinopril 10 mg DAILY PO 04/16/25 10:00 04/18/25 09:54 10 MG Acetaminophen 325 mg Q6HP PRN PO 04/15/25 08:15 Insulin Human Lispro AC SC 04/15/25 17:00 04/18/25 11:30 3 UNITS Furosemide 40 mg DAILY IV 04/16/25 10:00 04/18/25 09:55 40 MG Insulin Glargine 35 units QAM SC 04/16/25 06:30 04/18/25 06:20 35 UNITS Insulin Human Lispro 8 units AC SC 04/16/25 06:30 04/18/25 11:30 8 UNITS Acetaminophen/ Hydrocodone Bitart 1 tab Q6HP PRN PO 04/16/25 08:30 04/18/25 12:39 1 TAB Metoprolol Tartrate 50 mg Q12H PO 04/16/25 09:15 04/18/25 09:54 50 MG Diagnostic Test (Pha) 1 strip ACHS 04/16/25 22:00 UNV Diagnostic Test (Pha) 1 strip ACHS 04/16/25 22:00 04/18/25 11:30 1 STRIP Insulin Human Regular HS SC 04/16/25 22:00 04/17/25 21:27 4 UNITS Insulin Human Regular AC SC 04/17/25 07:00 04/18/25 12:42 9 UNITS Dextrose 50 ml UD PRN IV 04/16/25 17:15 Meropenem 50 ml @ 17 mls/hr Q8H IV 04/16/25 22:00 04/18/25 13:34 17 MLS/HR Azithromycin 500 mg DAILY PO 04/17/25 10:00 04/18/25 09:54 500 MG Fluconazole 200 mg DAILY PO 04/17/25 10:00 04/18/25 09:54 200 MG Amlodipine Besylate 10 mg DAILY PO 04/17/25 00:45 04/18/25 09:55 10 MG Cyclobenzaprine HCl 5 mg TID PO 04/18/25 08:00 04/18/25 13:34 5 MG Examination General: Morbidly obese patient. Apparent distress due to pain. Patient alert and oriented in person, place and time. Patient following commands. HEENT: Normocephalic, atraumatic, moist mucous membranes Respiratory/pulmonary: Clear lungs bilaterally, reduced breath sounds, no associated crackles or wheezes. Cardiovascular: Distant, Normal heart sounds S1 and S2 Abdomen: Generalized Abdominal tenderness. Thickened abdominal skin with striae Extremities: Right extremities: Reduced power 3/ 5 in upper extremities, 2/ 5 in lower extremities p.o. tenderness in right foot Skin: No rashes or pruritus, there is no sacral edema present at this time. Neurological: Intact cranial nerves with no focal neurologic deficits laboratory and microbiology Laboratory Tests 04/17/25 05:49 04/16/25 06:55 Test 04/17/25 05:49 Range/Units Serum Glucose 173 H 74-106 mg/dL Microbiology Date/Time Source Procedure Growth Status 04/15/25 06:10 Nose MRSA Screen - Final Complete 04/14/25 11:15 Voided Urine Urine Culture - Final Yeast, not Leticia albicans Complete 04/13/25 17:00 Blood Blood Culture - Preliminary NO GROWTH AFTER 72 HOURS OF INCUBATION. Resulted Problem List/Assessment/Plan Problem List/Assessment/Plan Acute metabolic encephalopathy due to below Acute on chronic hypoxic respiratory failure, due to pneumonia Gram-negative Gram-positive bacteria, possible Exacerbation of COPD, possible due to above Pulmonary edema/fluid overload History of asthma Vitals show tachypnea Lactic acid WNL CXR- Mild cardiomegaly and prominence of the pulmonary vasculature. Blunting of the bilateral costophrenic angles which could reflect small pleural effusions or scarring. Blood culture negative Influenza ordered Covid negative Pain management Continue on IV azithromycin, meropenem Continue on med neb treatment Methylprednisolone 40 mg IV Started on IV fluconazole Complicated symptomatic UTI History of recurrent UTI with ESBL organism Continue on IV vancomycin, meropenem Urine culture pending Acute exacerbation of congestive heart failure, possible HFpEF with ejection fraction 60%, Cardiomyopathy History of CAD History of CVA CXR- Mild cardiomegaly and prominence of the pulmonary vasculature BNP 280 Troponin WNL EKG revealed Atrial fibrillation, Low voltage, extremity and precordial leads, Nonspecific T abnormalities, lateral leads Previous echo in 2024 revealed LVEF 65%, mild MR, right atrium enlarged Monitored on telemetry Continue IV furosemide, lisinopril, metoprolol Cardiology on board, recommended trending troponin, DVT GI prophylaxis Deep vein thrombosis, ruled out Doppler venous ultrasound revealed No right or left femoropopliteal venous thrombosis. Bilateral common femoral vein and greater saphenous veins are not visualized due to body habitus History of anxiety, depression Metabolic disorder Essential hypertension Morbid obesity Uncontrolled Diabetes mellitus Continue basal bolus, sliding scale insulin Continue monitoring and managing Normocytic, normochromic anemia, BIBI, possible Labs positive for BIBI Started supplementation Hyyperammonemia VIVI on CKD due to VMN, possible History of CKD stage 2 Elevated BUN, creatinine Nephrology on board, recommended holding losartan; continue Lasix Hyperkalemia, resolved Labs showed potassium 5.5 Managed with Hyperkalemia protocol DIET: cardiac DVT PROPHYLAXIS: Lovenox GI PROPHYLAXIS: Protonix GI prophylaxis Colace CODE STATUS: Goals of care discussed with patient at bedside for more than 25 minutes. Full code DISPOSITION: Med/surge Patient's status and plan discussed with the patient. Case discussed with Dr. Paul. Plan discussed with: Patient My Orders My Orders Orders - JOCELINE BARRAZA RESIDENT Procedure Category Date Status Time Cyclobenzaprine PHA 04/18/25 In Process Tablet (Flexeril 08:00 Dietary Evaluation Review Comments: 1. CCHO-60 cardiac-renal spcific diet 60g protein restriction 2. Ron BID for wound healing Expected Outcomes/Goals: controlled DM, delayed uremic syndrome, Promote healing with Ron, gradual wt loss. Date of Service: Apr 18, 2025 Billing Provider: ELOISA PAUL MD Common Visit Codes: [id number] INP/OBS CARE(HIGH) JOCELINE BARRAZA RESIDENT Apr 18, 2025 17:03 ELOISA PAUL MD Apr 18, 2025 23:29
--- NOTE | 2025-04-18 20:16 | DVHPN2 ---
Progress Note - Dictate Date Seen: Apr 18, 2025 Has the PT tested + for MRSA If YES, has PT been informed?: No Medical Necessity Reason Pt with a Central, PICC or Fol: Yes The following are medically ne: Gee Catheter Subjective Patient was seen and evaluated in follow up. Patient is on 3 LPM NC. Patient is complaining of generalized discomfort. BS are in the 290's. vital signs Vital Sign Date Time Temp Pulse Resp B/P (MAP) Pulse Ox O2 Delivery O2 Flow Rate FiO2 04/18/25 10:54 56 130/5 04/18/25 09:44 18 99 04/18/25 09:38 Nasal Cannula 3.0 04/18/25 09:38 32 04/18/25 09:00 96.9 96.9 Total Intake and Output 04/17/25 04/17/25 04/18/25 15:00 23:00 07:00 Intake Total 50 ml 1000 ml 1300 ml Output Total 2450 ml 1400 ml Balance 50 ml -1450 ml -100 ml medications Current Medications Medications Dose Ordered Sig/Julito Route Start Time Stop Time Status Last Admin Dose Admin Ondansetron HCl 4 mg Q4HP PRN IV 04/13/25 14:15 04/18/25 10:02 4 MG Enoxaparin Sodium 40 mg DAILY SC 04/14/25 10:00 04/18/25 09:55 40 MG Ipratropium [place] 0.5 mg Q4HPRN PRN NEB 04/13/25 14:15 Albuterol 2.5 mg Q4HR NEB 04/13/25 18:00 04/18/25 09:38 2.5 MG Ipratropium [place] 0.5 mg Q4HR NEB 04/13/25 18:00 04/18/25 09:38 0.5 MG Methylprednisolone Sodium Succinate 40 mg Q8HR IV 04/13/25 22:00 04/18/25 05:43 40 MG Pantoprazole Sodium 40 mg DAILY IV 04/14/25 10:00 04/18/25 09:55 40 MG Lisinopril 10 mg DAILY PO 04/16/25 10:00 04/18/25 09:54 10 MG Acetaminophen 325 mg Q6HP PRN PO 04/15/25 08:15 Insulin Human Lispro AC SC 04/15/25 17:00 04/18/25 11:30 3 UNITS Furosemide 40 mg DAILY IV 04/16/25 10:00 04/18/25 09:55 40 MG Insulin Glargine 35 units QAM SC 04/16/25 06:30 04/18/25 06:20 35 UNITS Insulin Human Lispro 8 units AC SC 04/16/25 06:30 04/18/25 11:30 8 UNITS Acetaminophen/ Hydrocodone Bitart 1 tab Q6HP PRN PO 04/16/25 08:30 04/18/25 12:39 1 TAB Metoprolol Tartrate 50 mg Q12H PO 04/16/25 09:15 04/18/25 09:54 50 MG Diagnostic Test (Pha) 1 strip ACHS 04/16/25 22:00 UNV Diagnostic Test (Pha) 1 strip ACHS 04/16/25 22:00 04/18/25 11:30 1 STRIP Insulin Human Regular HS [place] 04/16/25 22:00 04/17/25 21:27 4 UNITS Insulin Human Regular AC [place] 04/17/25 07:00 04/18/25 12:42 9 UNITS Dextrose 50 ml UD PRN IV 04/16/25 17:15 Meropenem 50 ml @ 17 mls/hr Q8H IV 04/16/25 22:00 04/18/25 05:43 17 MLS/HR Azithromycin 500 mg DAILY PO 04/17/25 10:00 04/18/25 09:54 500 MG Fluconazole 200 mg DAILY PO 04/17/25 10:00 04/18/25 09:54 200 MG Amlodipine Besylate 10 mg DAILY PO 04/17/25 00:45 04/18/25 09:55 10 MG Cyclobenzaprine HCl 5 mg TID PO 04/18/25 08:00 04/18/25 09:55 5 MG objective GENERAL: Awake, confused, morbidly obese. EYES: PERRL, EOMI. Anicteric. HENT: Moist mucous membranes. LUNGS: Clear to auscultation bilaterally. CARDIOVASCULAR: Regular rate and rhythm. ABDOMEN: Soft, non-tender and non-distended. EXTREMITIES: No edema. SKIN: Warm, dry. laboratory and microbiology Laboratory Tests 04/17/25 05:49 04/16/25 06:55 Test 04/17/25 05:49 Range/Units Serum Glucose 173 H 74-106 mg/dL Problem List Acute on chronic hypoxic respiratory failure. Altered mental status UTI Hyperkalemia Acute on chronic VIVI. CHF. COPD. Asthma. CAD. DM2. HTN. History of CVA. Recurrent UTIs. Assessment/Plan Continued all current supportive medical care. Amlodipine, Lisinopril. Metoprolol. Diuretics with Lasix. Antibiotics as ordered. DVT and GI prophylactics. [place] for pain management. Nebulized breathing treatments. Additional plan as per the hospital course. Dietary Evaluation Review Comments: 1. CCHO-60 cardiac-renal spcific diet 60g protein restriction 2. Ron BID for wound healing Expected Outcomes/Goals: controlled DM, delayed uremic syndrome, Promote healing with Ron, gradual wt loss. Plan discussed with: Patient FRANTZ HOSKINS MD Apr 18, 2025 13:12
[2025-04-19] VITALS (21 sets, daily range): BP systolic 124–159; BP diastolic 61–87; PULSE 61–71; RESP 18–20; TEMP 97.6–98.8; O2SAT 95–100
--- NOTE | 2025-04-19 12:10 | DVHPN2 ---
Progress Note - Dictate Date Seen: Apr 18, 2025 Has the PT tested + for MRSA If YES, has PT been informed?: No Medical Necessity Reason Pt with a Central, PICC or Fol: Yes The following are medically ne: Gee Catheter vital signs Vital Sign Date Time Temp Pulse Resp B/P (MAP) Pulse Ox O2 Delivery O2 Flow Rate FiO2 04/19/25 09:54 61 18 99 04/19/25 09:46 143/61 04/19/25 09:00 3.0 04/19/25 08:55 98.8 98.8 04/19/25 06:04 Nasal Cannula 04/19/25 06:04 32 Total Intake and Output 04/18/25 04/18/25 04/19/25 15:00 23:00 07:00 Intake Total 1925 ml 960 ml Output Total 2550 ml 1450 ml Balance -625 ml -490 ml medications Current Medications Medications Dose Ordered Sig/Julito Route Start Time Stop Time Status Last Admin Dose Admin Ondansetron HCl 4 mg Q4HP PRN IV 04/13/25 14:15 04/18/25 22:28 4 MG Enoxaparin Sodium 40 mg DAILY SC 04/14/25 10:00 04/19/25 09:45 40 MG Ipratropium [place] 0.5 mg Q4HPRN PRN NEB 04/13/25 14:15 Albuterol 2.5 mg Q4HR NEB 04/13/25 18:00 04/19/25 09:44 2.5 MG Ipratropium [place] 0.5 mg Q4HR NEB 04/13/25 18:00 04/19/25 09:44 0.5 MG Methylprednisolone Sodium Succinate 40 mg Q8HR IV 04/13/25 22:00 04/19/25 05:28 40 MG Pantoprazole Sodium 40 mg DAILY IV 04/14/25 10:00 04/19/25 09:46 40 MG Lisinopril 10 mg DAILY PO 04/16/25 10:00 04/19/25 09:45 10 MG Acetaminophen 325 mg Q6HP PRN PO 04/15/25 08:15 Insulin Human Lispro AC SC 04/15/25 17:00 04/19/25 11:45 3 UNITS Furosemide 40 mg DAILY IV 04/16/25 10:00 04/19/25 09:46 40 MG Insulin Glargine 35 units QAM SC 04/16/25 06:30 04/19/25 06:01 35 UNITS Insulin Human Lispro 8 units AC SC 04/16/25 06:30 04/19/25 11:44 8 UNITS Acetaminophen/ Hydrocodone Bitart 1 tab Q6HP PRN PO 04/16/25 08:30 04/19/25 05:39 1 TAB Metoprolol Tartrate 50 mg Q12H PO 04/16/25 09:15 04/19/25 09:42 50 MG Diagnostic Test (Pha) 1 strip ACHS 04/16/25 22:00 UNV Diagnostic Test (Pha) 1 strip ACHS 04/16/25 22:00 04/19/25 11:38 1 STRIP Insulin Human Regular HS SC 04/16/25 22:00 04/18/25 22:18 4 UNITS Insulin Human Regular AC SC 04/17/25 07:00 04/19/25 11:44 9 UNITS Dextrose 50 ml UD PRN IV 04/16/25 17:15 Meropenem 50 ml @ 17 mls/hr Q8H IV 04/16/25 22:00 04/19/25 05:28 17 MLS/HR Azithromycin 500 mg DAILY PO 04/17/25 10:00 04/19/25 09:45 500 MG Fluconazole 200 mg DAILY PO 04/17/25 10:00 04/19/25 09:42 200 MG Amlodipine Besylate 10 mg DAILY PO 04/17/25 00:45 04/19/25 09:43 10 MG Cyclobenzaprine HCl 5 mg TID PO 04/18/25 08:00 04/19/25 05:28 5 MG laboratory and microbiology Laboratory Tests 04/17/25 05:49 04/16/25 06:55 Test 04/17/25 05:49 Range/Units Serum Glucose 173 H 74-106 mg/dL Assessment/Plan Acute hypoxemic respiratory failure Congestive heart failure Pulmonary edema/fluid overload Cardiomyopathy COPD Patient is seen and examined events low oxygen requirements no events no distress Management plan continue supportive care Albuterol/Atrovent bronchodilators for wheezing Diuresis Lasixmonitor renal function Replace electrolytes steroids with taper DVT prophylaxis Dietary Evaluation Review Comments: 1. CCHO-60 cardiac-renal spcific diet 60g protein restriction 2. Ron BID for wound healing Expected Outcomes/Goals: controlled DM, delayed uremic syndrome, Promote healing with Ron, gradual wt loss. Plan discussed with: Patient IAN HASTINGS MD Apr 19, 2025 12:10
[2025-04-19] MEDS ORDERED: PRED20TA2 PO ×2 (14:07→14:08)
[2025-04-19] MEDS ORDERED: FLUC200T50 PO ×2 (14:07→14:08)
[2025-04-19] MEDS ORDERED: AZIT-185 PO (14:07)
[2025-04-19] MEDS ORDERED: AZIT500T66 PO (14:08)
--- NOTE | 2025-04-19 14:10 | DVHDSRES ---
Discharge Summary Date of Admission Resident Creating Document: JOCELINE BARRAZA RESIDENT Apr 13, 2025 at 14:06 Date of Discharge: Apr 19, 2025 Labs/Diagnostic Data: Laboratory Results Test 04/19/25 11:30 04/19/25 10:30 04/18/25 13:55 04/17/25 05:49 POC Glucose 266 mg/dl (70-106) Influenza Type A Antigen Negative (Negative) Influenza Type B Antigen Negative (Negative) SARS-CoV-2 Antigen (Rapid) Negative (NEGATIVE) Sodium Level 142 mmol/L (136-145) Potassium Level 4.0 mmol/L (3.5-5.1) Chloride Level 98 mmol/L (98-107) Carbon Dioxide Level 38 mmol/L (20-31) Anion Gap 6 (5-15) Blood Urea Nitrogen 20 mg/dL (9-23) Creatinine 0.81 mg/dL (0.550-1.02) Glomerular Filtration Rate Calc 83 mL/min (>90) BUN/Creatinine Ratio 24.7 (10.0-20.0) Serum Glucose 173 mg/dL (74-106) Calcium Level 9.2 mg/dL (8.7-10.4) Test 04/16/25 06:55 04/15/25 09:34 04/14/25 14:21 04/13/25 18:44 White Blood Count 9.1 10^3/uL (4.4-10.8) Red Blood Count 3.72 10^6/uL (4.0-5.20) Hemoglobin 10.0 g/dL (12.2-16.2) Hematocrit 31.0 % (36.0-46.0) Mean Corpuscular Volume 83.3 fL (80.0-100.0) Mean Corpuscular Hemoglobin 26.8 pg (28.0-32.0) Mean Corpuscular Hemoglobin Concent 32.2 g/dL (32.0-36.0) Red Cell Distribution Width 16.2 % (11.8-14.3) Platelet Count 308 10^3/uL (140-450) Mean Platelet Volume 8.5 fL (6.9-10.8) Neutrophils (%) (Auto) 90.9 % (37.0-80.0) Lymphocytes (%) (Auto) 3.9 % (10.0-50.0) Monocytes (%) (Auto) 4.6 % (0.0-12.0) Eosinophils (%) (Auto) 0.1 % (0.0-7.0) Basophils (%) (Auto) 0.5 % (0.0-2.0) Neutrophils # (Auto) 8.3 10 ^3/uL (1.6-8.6) Lymphocytes # (Auto) 0.4 10 ^3/uL (0.4-5.4) Monocytes # (Auto) 0.4 10 ^3/uL (0-1.3) Eosinophils # (Auto) 0 10 ^3/uL (0-0.8) Basophils # (Auto) 0 10 ^3/uL (0-0.2) Nucleated Red Blood Cells 0.3 % Vancomycin Level Trough 8.1 ug/mL (5-10) Total Bilirubin 0.3 mg/dL (0.2-1.0) Aspartate Amino Transferase (AST) 10 U/L (13-40) Alanine Aminotransferase (ALT) 20 U/L (7-40) Alkaline Phosphatase 90 U/L (46-116) Total Protein 6.4 g/dL (5.7-8.2) Albumin 4.1 g/dL (3.2-4.8) Iron Level 22 ug/dL (50-170) Total Iron Binding Capacity 314 ug/dL (250-425) Percent Iron Saturation 7.0 % (15-50) Ferritin 42.6 ng/mL (10-291) Ammonia < 10 umol/L (11-32) Troponin I High Sensitivity 11 ng/L (</=34) B-Type Natriuretic Peptide 280.10 pg/mL (0-100) Test 04/13/25 15:08 04/13/25 14:29 Urine Color Colorless (Yellow) Urine Clarity Clear (Clear) Urine pH 5.0 (5.0-9.0) Urine Specific [place] 1.009 (1.001-1.035) Urine Protein Negative (Negative) Urine Ketones Negative (Negative) Urine Blood Trace /uL (Negative) Urine Nitrite Negative (Negative) Urine Bilirubin Negative (Negative) Urine Urobilinogen Normal mg/dL (Negative) Urine Leukocyte Esterase Negative /uL (Negative) Urine Glucose Normal mg/dL (Normal) Lactic Acid Level 1.0 mmol/L (0.4-2.0) Other Laboratory Tests 04/17/25 05:49 04/16/25 06:55 Brief Hx & Hospital Course: Chinedu Beckett is a 59-year-old female with past medical history of CVA, HFpEF, COPD, hypertension, diabetes, presented to the ER with chief complain of inability to move, accompanied by pain in her whole body. Reportedly, she was unable to talk. She remained confused for some time and was brought to the ER. She uses 3 L home oxygen. She also complained of burning micturition, dysuria from last week, with associated chills. has history of recurrent UTI with ESBL organism. Hospital course: She was admitted along the lines of acute metabolic encephalopathy and exacerbation of acute on chronic hypoxic respiratory failure and acute on chronic HFpEF and complicated UTI. During her stay, her initial labs revealed elevated ammonia, BUN, creatinine, hyperkalemia. A chest x-ray obtained revealed mild cardiomegaly and prominence pulmonary vasculature , and blunting of bilateral costophrenic angles. She was started on IV azithromycin and meropenem, respiratory therapy, pain management & diuresis with furosemide. Cardiology & Nephrology on board, recommended diuresis and trending troponin. Urine culture revealed yeast, She was started on IV fluconazole Final diagnosis: Acute metabolic encephalopathy due to hyperammonemia, possible Acute on chronic hypoxic respiratory failure, due to pneumonia Gram-negative Gram-positive bacteria, possible Exacerbation of COPD, possible due to above Pulmonary edema/fluid overload History of asthma Complicated UTI Acute exacerbation of diastolic heart failure, possible HFpEF with ejection fraction 60%, Cardiomyopathy History of CAD History of CVA Deep vein thrombosis, ruled out History of anxiety, depression Metabolic disorder Essential hypertension Morbid obesity Uncontrolled Diabetes mellitus Normocytic, normochromic anemia, BIBI, possible VIVI on CKD due to VMN, possible History of CKD stage 2 Hyperkalemia, resolved Discharge plan: Please follow-up with PCP in 1 week. Please follow with Cardiology outpatient. Please follow with Nephrology outpatient. Follow-up in discharge clinic in 2 weeks. Please continue home medications as per EHR. Please continue Z-Andrzej 500 mg daily for 4 days. Please continue prednisolone 40 mg daily for 4 days. Please continue fluconazole 200 mg daily for 12 days. Consults/Reason for consult Cardiology and Nephrology consulted, recommended diuresis, steroids and DVT prophylaxis Operations or Procedures Bilateral lower extremity venous duplex Clinical History: leg pain and swelling r/o DVt Comparison: None Findings: Duplex Doppler evaluation of the deep venous systems of both lower extremities from the common femoral veins to the popliteal veins including color Doppler and spectral/pulsed waveform analysis was performed. RIGHT SIDE: Bilateral common femoral vein and greater saphenous veins are not visualized due to body habitus The femoral vein demonstrates appropriate compressibility and waveform variability. The deep femoral vein demonstrates appropriate compressibility and waveform variability. The popliteal vein demonstrates appropriate compressibility and waveform variability. There is normal compressibility at the tibioperoneal trunk. LEFT SIDE: The femoral vein demonstrates appropriate compressibility and waveform variability. The deep femoral vein demonstrates appropriate compressibility and waveform variability. The popliteal vein demonstrates appropriate compressibility and waveform variability. There is normal compressibility at the tibioperoneal trunk. IMPRESSION: No right or left femoropopliteal venous thrombosis. Bilateral common femoral vein and greater saphenous veins are not visualized due to body habitus ---- XY CHEST XRAY 1 VIEW CLINICAL HISTORY: sob TECHNIQUE: Single AP view of the chest WID: COMPARISON: CT CHEST WITHOUT CONTRAST on DOS: 03/25/25, XY CHEST PORTABLE on DOS: 03/24/25 FINDINGS: Lines and tubes: None Chest: Mild cardiomegaly and pulmonary vascular congestion. Slight elevation of the right hemidiaphragm. Blunting of the bilateral costophrenic angles. No pneumothorax. The osseous structures are grossly intact. IMPRESSION: Mild cardiomegaly and prominence of the pulmonary vasculature. Blunting of the bilateral costophrenic angles which could reflect small pleural effusions or scarring. Condition at Discharge: Stable Final Diagnosis/Problems List Acute metabolic encephalopathy due to hyperammonemia, possible Acute on chronic hypoxic respiratory failure, due to pneumonia Gram-negative Gram-positive bacteria, possible Exacerbation of COPD, possible due to pneumonia Pulmonary edema/fluid overload History of asthma Complicated UTI Acute exacerbation of diastolic heart failure, possible Hx of HFpEF with ejection fraction 60%, Cardiomyopathy History of CAD History of CVA Deep vein thrombosis, ruled out History of anxiety, depression Metabolic disorder Essential hypertension Morbid obesity Uncontrolled Diabetes mellitus Normocytic, normochromic anemia, BIBI, possible VIVI on CKD due to VMN, possible History of CKD stage 2 Hyperkalemia, resolved Discharge Disposition: Home with Health Services Discharge Instruct/Medications Diet: Consistent carbohydrate, Cardiac 2g Na,low cholest, Renal Activity: No Restrictions, As Tolerated Follow Up/Referral: Please follow-up with PCP in 1 week. Please follow with Cardiology outpatient. Please follow with Nephrology outpatient. Medications: Please continue home medications Please continue Z-Andrzej 500 mg daily for 4 days Please continue prednisolone 40 mg daily for 4 days Please continue fluconazole 200 mg daily for 12 days Scheduled Amiodarone HCl (Amiodarone HCl), 1 TAB PO BID, (Reported) Apixaban Base (Eliquis), 5 MG PO BID Aspirin (Aspirin Low Dose), 1 TAB PO DAILY, (Reported) Azithromycin (Azithromycin), 500 MG PO DAILY Baclofen (Baclofen), 1 TAB PO BID, (Reported) Buspirone Hcl (Buspirone Hcl), 1 TAB PO QID, (Reported) Empagliflozin (Jardiance), 1 TAB PO DAILY, (Reported) Fluconazole (Fluconazole), 200 MG PO DAILY Fluticasone Propionate (Nasal) (Fluticasone Propionate), 1 SPRAY DANIELE DAILY, (Reported) Furosemide (Lasix), 40 MG PO BID Glipizide (Glipizide), 2 PO BID, (Reported) Isosorbide Dinitrate (Isosorbide Dinitrate), 1 TAB PO TID, (Reported) Levofloxacin Hemihydrate (Levaquin 500 Mg), 1 TAB PO DAILY, (Reported) Lidocaine (Lidocaine Pain Relief Pat), 1 PATCH TOP DAILY, (Reported) Losartan Potassium (Losartan Potassium), 1 TAB PO BID, (Reported) Lubiprostone (Lubiprostone), 1 CAP PO DAILY, (Reported) Metoprolol Succinate (Metoprolol Succinate Er), 1 TAB PO DAILY, (Reported) Pantoprazole Sodium Sesquihydr (Pantoprazole Sodium), 1 TAB PO DAILY, (Reported) Potassium Chloride (K-Tab), 2 TAB PO BID, (Reported) Prednisone (Prednisone), 40 MG PO DAILY Pregabalin (Pregabalin), 1 CAP PO TID, (Reported) Simvastatin (Simvastatin), 1 TAB PO HS, (Reported) Spironolactone (Spironolactone), 1 TAB PO DAILY, (Reported) Scheduled PRN Alprazolam (Alprazolam), 1 TAB PO QID PRN for ANXIETY, (Reported) Meclizine Hcl (Meclizine Hcl), 25 MG PO BIDP PRN for DIZZINESS, (Reported) Ondansetron HCl (Ondansetron Hydrochloride), 1 TAB PO Q6HPRN PRN for NAUSEA / VOMITING, (Reported) Trazodone Hcl (Trazodone Hcl), 2 TAB PO QHSP PRN for FOR INSOMNIA, (Reported) Miscellaneous Medications Atorvastatin Calcium (Lipitor), 40 MG PO, (Reported) Discharge Statement: "Patient was advised to return to the ER or call 911 if any headaches, dizziness, shortness of breath, chest pain, abdominal pain, bleeding, fevers, or worsening of medical condition. Patient was counseled about treatment plan, medications, possible side effects, patientverbalized understanding. All questions were answered to the best of my ability. This discharge took greater then 30 minutes in planning, reviewing documentation, counseling the patient, and discussing with other team members." ASSESSMENT ASSESSMENT Assessment Acute metabolic encephalopathy due to hyperammonemia, possible Acute on chronic hypoxic respiratory failure, due to pneumonia Gram-negative Gram-positive bacteria, possible Exacerbation of COPD, possible due to pneumonia Pulmonary edema/fluid overload History of asthma Complicated UTI Acute exacerbation of diastolic heart failure, possible Hx of HFpEF with ejection fraction 60%, Cardiomyopathy History of CAD History of CVA Deep vein thrombosis, ruled out History of anxiety, depression Metabolic disorder Essential hypertension Morbid obesity Uncontrolled Diabetes mellitus Normocytic, normochromic anemia, BIBI, possible VIVI on CKD due to VMN, possible History of CKD stage 2 Hyperkalemia, resolved Date of Service: Apr 19, 2025 Billing Provider: ELOISA FRAUSTO MD Common Visit Codes: 87149-PLS/OBS DISCH DAY >30min JOCELINE BARRAZA RESIDENT Apr 19, 2025 14:10 ELOISA FRAUSTO MD Apr 23, 2025 22:08
--- NOTE | 2025-04-19 22:55 | DVHPN2 ---
Progress Note - Dictate Date Seen: Apr 19, 2025 Has the PT tested + for MRSA If YES, has PT been informed?: No Medical Necessity Reason Pt with a Central, PICC or Fol: Yes The following are medically ne: Gee Catheter Subjective Patient was seen and evaluated in follow up. Patient has no new complaints at this time. Patient denies any cardiac symptoms. Patient is cardiac stable for discharge. vital signs Vital Sign Date Time Temp Pulse Resp B/P (MAP) Pulse Ox O2 Delivery O2 Flow Rate FiO2 04/19/25 13:31 98.4 66 20 157/77 (103) 99 98.4 04/19/25 10:00 Nasal Cannula* 3 32 Total Intake and Output 04/18/25 04/18/25 04/19/25 15:00 23:00 07:00 Intake Total 1925 ml 960 ml Output Total 2550 ml 1450 ml Balance -625 ml -490 ml medications Current Medications Medications Dose Ordered Sig/[place] Route Start Time Stop Time Status Last Admin Dose Admin Ondansetron HCl 4 mg Q4HP PRN IV 04/13/25 14:15 04/18/25 22:28 4 MG Enoxaparin Sodium 40 mg DAILY SC 04/14/25 10:00 04/19/25 09:45 40 MG Ipratropium [place] 0.5 mg Q4HPRN PRN NEB 04/13/25 14:15 Albuterol 2.5 mg Q4HR NEB 04/13/25 18:00 04/19/25 09:44 2.5 MG Ipratropium [place] 0.5 mg Q4HR NEB 04/13/25 18:00 04/19/25 09:44 0.5 MG Methylprednisolone Sodium Succinate 40 mg Q8HR IV 04/13/25 22:00 04/19/25 05:28 40 MG Pantoprazole Sodium 40 mg DAILY IV 04/14/25 10:00 04/19/25 09:46 40 MG Lisinopril 10 mg DAILY PO 04/16/25 10:00 04/19/25 09:45 10 MG Acetaminophen 325 mg Q6HP PRN PO 04/15/25 08:15 Insulin Human Lispro AC SC 04/15/25 17:00 04/19/25 11:45 3 UNITS Furosemide 40 mg DAILY IV 04/16/25 10:00 04/19/25 09:46 40 MG Insulin Glargine 35 units QAM SC 04/16/25 06:30 04/19/25 06:01 35 UNITS Insulin Human Lispro 8 units AC SC 04/16/25 06:30 04/19/25 11:44 8 UNITS Acetaminophen/ Hydrocodone Bitart 1 tab Q6HP PRN PO 04/16/25 08:30 04/19/25 05:39 1 TAB Metoprolol Tartrate 50 mg Q12H PO 04/16/25 09:15 04/19/25 09:42 50 MG Diagnostic Test (Pha) 1 strip ACHS 04/16/25 22:00 UNV Diagnostic Test (Pha) 1 strip ACHS 04/16/25 22:00 04/19/25 11:38 1 STRIP Insulin Human Regular HS SC 04/16/25 22:00 04/18/25 22:18 4 UNITS Insulin Human Regular AC SC 04/17/25 07:00 04/19/25 11:44 9 UNITS Dextrose 50 ml UD PRN IV 04/16/25 17:15 Meropenem 50 ml @ 17 mls/hr Q8H IV 04/16/25 22:00 04/19/25 05:28 17 MLS/HR Azithromycin 500 mg DAILY PO 04/17/25 10:00 04/19/25 09:45 500 MG Fluconazole 200 mg DAILY PO 04/17/25 10:00 04/19/25 09:42 200 MG Amlodipine Besylate 10 mg DAILY PO 04/17/25 00:45 04/19/25 09:43 10 MG Cyclobenzaprine HCl 5 mg TID PO 04/18/25 08:00 04/19/25 05:28 5 MG objective GENERAL: Awake, confused, morbidly obese. EYES: PERRL, EOMI. Anicteric. HENT: Moist mucous membranes. LUNGS: Clear to auscultation bilaterally. CARDIOVASCULAR: Regular rate and rhythm. ABDOMEN: Soft, non-tender and non-distended. EXTREMITIES: No edema. SKIN: Warm, dry. laboratory and microbiology Laboratory Tests 04/17/25 05:49 04/16/25 06:55 Test 04/17/25 05:49 Range/Units Serum Glucose 173 H 74-106 mg/dL Problem List Acute on chronic hypoxic respiratory failure. Altered mental status UTI Hyperkalemia Acute on chronic VIVI. CHF. COPD. Asthma. CAD. DM2. HTN. History of CVA. Recurrent UTIs. Assessment/Plan Continued all current supportive medical care. Amlodipine, Lisinopril. Metoprolol. Diuretics with Lasix. Antibiotics as ordered. DVT and GI prophylactics. Waldo for pain management. Nebulized breathing treatments. Additional plan as per the hospital course. Dietary Evaluation Review Comments: 1. CCHO-60 cardiac-renal spcific diet 60g protein restriction 2. Ron BID for wound healing Expected Outcomes/Goals: controlled DM, delayed uremic syndrome, Promote healing with Ron, gradual wt loss. Plan discussed with: Patient FRANTZ HOSKINS MD Apr 19, 2025 13:48
== END 2025-04-19 20:50 | disposition home health service (06) | DRG 177 ==
LOC: ER 11:13 → EDBD 11:13 → OVERFLOW 14:06 → TELE-CENTR 04-15 02:55 → CENTRAL 04-16 11:55
PROVIDERS: ADMIT Student in an Organized Health Care Education/Training Program; ATTEND Emergency Medicine
PROC: 05HY33Z Insertion of Infusion Device into Upper Vein, Percutaneous Approach (ICD-10-PCS; principal; 2025-04-14)
PROC: B54NZZA Ultrasonography of Left Upper Extremity Veins, Guidance (ICD-10-PCS; 2025-04-14)
DX: J15.69 Pneumonia due to other Gram-negative bacteria (principal); G93.41 Metabolic encephalopathy; I50.33 Acute on chronic diastolic (congestive) heart failure; N17.0 Acute kidney failure with tubular necrosis; J96.21 Acute and chronic respiratory failure with hypoxia; N39.0 Urinary tract infection, site not specified; E72.20 Disorder of urea cycle metabolism, unspecified; J44.1 Chronic obstructive pulmonary disease with (acute) exacerbation; I42.9 Cardiomyopathy, unspecified; I13.0 Hypertensive heart and chronic kidney disease with heart failure and stage 1 through stage 4 chronic kidney disease, or unspecified chronic kidney disease; J44.0 Chronic obstructive pulmonary disease with (acute) lower respiratory infection; J15.9 Unspecified bacterial pneumonia; Z20.822 Contact with and (suspected) exposure to COVID-19; E66.01 Morbid (severe) obesity due to excess calories; E11.22 Type 2 diabetes mellitus with diabetic chronic kidney disease; E87.5 Hyperkalemia; N18.2 Chronic kidney disease, stage 2 (mild); I25.10 Atherosclerotic heart disease of native coronary artery without angina pectoris; E88.9 Metabolic disorder, unspecified; I48.91 Unspecified atrial fibrillation; F41.9 Anxiety disorder, unspecified; Z99.81 Dependence on supplemental oxygen; Z86.73 Personal history of transient ischemic attack (TIA), and cerebral infarction without residual deficits; Z85.828 Personal history of other malignant neoplasm of skin; Z80.8 Family history of malignant neoplasm of other organs or systems; Z79.899 Other long term (current) drug therapy; Z79.84 Long term (current) use of oral hypoglycemic drugs; Z79.82 Long term (current) use of aspirin; Z79.01 Long term (current) use of anticoagulants; Z88.5 Allergy status to narcotic agent; Z88.0 Allergy status to penicillin; Z68.25 Body mass index [BMI] 25.0-25.9, adult
CPT/HCPCS: 36415; 71045; 80048; 80053; 80202; 81003; 82140; 82565; 82728; 82962; 83540; 83550; 83605; 83880; 84132; 84484; 85025; 87040; 87081; 87086; 87088; 87426; 87804; 93005; 93970; 94640; 97163; 99291; 99292; G0378; J1756; J1815; J2185; J2405; J2470; J3490